=== PATIENT | female | born 1960 | race African-American/Black ===

== ENCOUNTER → 2020-07-23 08:59 | Outpatient (BNVA) | payer MEDICAID, SELFPAY | PROVIDERS: PCP Internal Medicine; Referring Provider Internal Medicine; Visit Provider Internal Medicine Endocrinology, Diabetes & Metabolism | DX: E06.3 Autoimmune thyroiditis (principal); E03.8 Other specified hypothyroidism; M85.88 Other specified disorders of bone density and structure, other site; E04.2 Nontoxic multinodular goiter; Z86.39 Personal history of other endocrine, nutritional and metabolic disease; Z79.899 Other long term (current) drug therapy | CPT/HCPCS: 99214 ==

== ENCOUNTER → 2020-07-26 09:04 | Outpatient (BNVA) | payer MEDICAID, SELFPAY | PROVIDERS: PCP Internal Medicine; Referring Provider Internal Medicine; Visit Provider Internal Medicine Cardiovascular Disease | DX: Z01.810 Encounter for preprocedural cardiovascular examination (principal); R07.9 Chest pain, unspecified; I10 Essential (primary) hypertension | CPT/HCPCS: 99204 ==

== ENCOUNTER → 2020-08-14 09:32 | Outpatient (REF) | payer MEDICAID, SELFPAY ==
--- NOTE | 2020-08-14 | NM_ITS ---
Exercise Myocardial perfusion study Indication: Chest discomfort with preoperative cardiovascular risk stratification Technique: The patient was brought in for an exercise perfusion study on 08/14/2020. Patient performed exercise as per Kailash protocol and was injected 30 mCi of sestamibi was given intravenously one target HR was achieved. Images were obtained using the SPECT gamma camera interlaced with the gating device. Images were obtained in supine position. Resting perfusion study was performed on 08/15/2020. Patient was administered 30 mCi of sestamibi intravenously at rest. Images were then obtained in supine position. Images obtained with and without CT attenuation. Total DLP 108 MGY-CM. Images were processed with the software and compared side to side in short axis, horizontal long axis and vertical long axis views. Findings: The stress perfusion study showed non attenuated images show small area of mildly reduced uptake in the apex of the LV myocardium. Remainder of the LV myocardium is normally perfused. Attenuation corrected images show normal uptake of radiotracer in all segments of LV myocardium.. The gated study shows normal LV systolic function with calculated LVEF of 72%. LV cavity is normal in size. The gated study shows normal systolic wall thickening and contraction of all segments. There is no transient ischemic dilation. Resting study shows non attenuated images show normal uptake of radiotracer in all segments of LV myocardium. Attenuation corrected images show minimally reduced uptake in the apex of the LV myocardium. Gating at rest reveals normal systolic wall motion with ejection fraction at 68%. The findings are consistent with small area of mildly reversible defect of the apex on non attenuated study. Attenuation corrected study shows normalization of uptake in the apex, question old correction.. NM/NM luis perf SPECT rest & str Impression: 1. Equivocal for small area of mild intensity apical ischemia 2. Gated LVEF is 72% with stress 3. Transient ischemic dilatation not present Stress EKG is negative for ischemia
--- NOTE | 2020-08-14 10:00 | CA_ITS ---
Acquisition Time: 2020-08-14 09:58:41 Total Exercise Time: 00:05:02 Test Indications: CP Medications: SEE CHART Protocol: RAY Max HR: 157 BPM 98% of Pred: 160 BPM Max BP: 170/084 mmHG Max Work Load: 7.0 METS Exercise nuclear using Ray protocol. Pt exercised on treadmill for total of 5 min 2 sec. Tolerated well. METS 7.0 Pt denies any anginal sx, EKG without any arrhythmias. Scooped ST seen inferiorly and anteriorly more in peak exercise and in early recovery stage. Nuclear images to follow. Normotensive response to exercise. Test reviewed with Dr. Montoya. Referred By: Wes Alberto Overread By: Nelson Murray
== END ==
LOC: HO.CARD 09:32
PROVIDERS: Visit Provider Internal Medicine Cardiovascular Disease
DX: R07.9 Chest pain, unspecified (principal)
CPT/HCPCS: 78452; 93017; A9500

== ENCOUNTER → 2020-08-29 08:07 | Outpatient (BNVA) | payer MEDICAID, SELFPAY | PROVIDERS: PCP Internal Medicine; Referring Provider Internal Medicine; Visit Provider Hospitalist | DX: J45.40 Moderate persistent asthma, uncomplicated (principal); G47.33 Obstructive sleep apnea (adult) (pediatric); R91.8 Other nonspecific abnormal finding of lung field; Z79.899 Other long term (current) drug therapy; Z23 Encounter for immunization | CPT/HCPCS: 90686; 99202 ==

== ENCOUNTER → 2020-09-04 09:43 | Outpatient (BNVA) | payer MEDICAID, SELFPAY | PROVIDERS: PCP Internal Medicine; Referring Provider Internal Medicine; Visit Provider Nurse Practitioner Family | DX: R94.39 Abnormal result of other cardiovascular function study (principal); R07.9 Chest pain, unspecified; I10 Essential (primary) hypertension; J45.40 Moderate persistent asthma, uncomplicated | CPT/HCPCS: 99212 ==

== ENCOUNTER 2020-09-04 10:51 | Outpatient (REF) | payer MEDICAID, SELFPAY ==
[2020-09-04 14:09] LABS: MANUAL DIFF FLAG NO
[2020-09-04 14:20] LABS: Basophils Percent Auto 0.7 % (0-2); Eosinophils Percent Auto 0.7 % (0-4); Hematocrit 37.7 % (37-47); Hemoglobin 12.4 g/dl (12.0-16.0); Imm Gran Abs Auto 0.01 X10*3/uL (0.00-0.03); Imm Gran Pct Auto 0.2 % (0.0-0.4); Lymphocytes Absolute Auto 1.8 X10*3/uL (1.2-4.9); Lymphocytes Percent Auto 31.7 % (20-40); Mean Corpuscular HGB Conc 32.9 g/dl (31.0-35.0); Mean Corpuscular Hemoglobin 28.2 pg (27.0-33.0); Mean Corpuscular Volume 85.7 fL (80-98); Mean Platelet Volume 9.7 fL (9.4-12.3); Monocytes Absolute Auto 0.2 X10*3/uL (0.1-1.2); Monocytes Percent Auto 4.2 % (2-11); Neutrophils Absolute Auto 3.6 X10*3/uL (2.0-8.3); Neutrophils Percent Auto 62.5 % (45-73); Platelet Count 407 X10*3/uL (160-400); Red Cell Distribution Width 12.3 % (11.0-16.0); White Blood Count 5.7 X10*3/uL (4.8-10.8)
[2020-09-04 14:32] LABS: Albumin Level 4.2 g/dL (3.5-5.0); Calcium 9.9 mg/dL (8.4-10.2)
[2020-09-04 14:37] LABS: Anion Gap 14 (12-20); Blood Urea Nitrogen 14 mg/dL (9-16); Calcium 9.7 mg/dL (8.4-10.2); Carbon Dioxide 29 mmol/L (22-29); Chloride 102 mmol/L (96-108); Estimated Glomerular Filt Rate > 60; Glucose Random 84 mg/dL (60-115); Potassium 4.1 mmol/l (3.3-5.1); Sodium 141 mmol/L (135-145)
[2020-09-04 15:01] LABS: Free T4 (Free Thyroxine) 1.17 ng/dL (0.71-1.85); Vitamin D 25-OH Total 53.3 ng/mL (>30)
[2020-09-04 15:12] LABS: Erythrocyte Sedimentation Rate 18 MM/HR (0-20)
[2020-09-05 20:37] LABS: Calcium (PTHI) 10.1 mg/dL (8.6-10.4); PTHI 28 pg/mL (14-64)
[2020-09-08 14:11] LABS: VITAMIN D (1,25 OH) D3 45 pg/mL; Vit D (1,25-Dihydroxy) Total 45 pg/mL (18-72); Vitamin D (1,25 OH) D2 <8 pg/mL
== END 2020-09-04 10:52 | disposition home or self-care (01) ==
LOC: HO.10HDL 10:51
PROVIDERS: Nurse Practitioner Family; Absent Provider Hospitalist; Visit Provider Internal Medicine Endocrinology, Diabetes & Metabolism
DX: J45.40 Moderate persistent asthma, uncomplicated (principal); R07.9 Chest pain, unspecified; E03.9 Hypothyroidism, unspecified; E04.2 Nontoxic multinodular goiter; Z86.39 Personal history of other endocrine, nutritional and metabolic disease
CPT/HCPCS: 36415; 80048; 82040; 82306; 82310; 82652; 82785; 83970; 84439; 84443; 85025; 85652; 86003

== ENCOUNTER 2020-09-17 10:23 | Outpatient (REF) | payer MEDICAID, SELFPAY ==
[2020-09-17 12:25] LABS: Creatinine, mg/dL 54.72
[2020-09-17 13:58] LABS: Creatinine, 24Hr Urine 0.8 G/Day (1.0-2.0); Total Volume 24 Hour Urine 1525 mL
[2020-09-18 17:58] LABS: Calcium, 24 Hr Urine 84 mg/24 h; Calcium/Creatinine Ratio 95 mg/g creat (30-275); Creatinine 24Hr Urine 0.88 g/24 h (0.50-2.15)
== END 2020-09-17 10:24 | disposition home or self-care (01) ==
LOC: HO.LNP 10:23
PROVIDERS: Visit Provider Internal Medicine Endocrinology, Diabetes & Metabolism
DX: Z86.39 Personal history of other endocrine, nutritional and metabolic disease (principal)
CPT/HCPCS: 82340; 82570

== ENCOUNTER 2020-09-19 08:45 | Outpatient (REF) | payer MEDICAID, SELFPAY ==
--- NOTE | 2020-09-19 08:45 | PFT_ITS ---
INDICATION: Asthma SPIROMETRY: The FEV1 to FVC 75% with an FEV1 of 1.57 L which is 67% predicted, an FVC of 2.09 L which is 70% predicted. Significant response to bronchodilators noted. Maximum voluntary ventilation only 46% predicted. LUNG VOLUMES: Total lung capacity 86% predicted with an expiratory reserve volume of only 8% predicted, likely secondary to an elevated BMI. DIFFUSION CAPACITY: DLCO 85% predicted. COMPARISONS: No definitive obstructive nor restrictive ventilatory defects identified. The patient did have a significant response to bronchodilators noted. Also has evidence of small airway disease consistent with a history of asthma. Lung volumes do demonstrate a significantly decreased expiratory reserve volume secondary to an elevated BMI and low normal total lung capacity, likely due to the elevated BMI. Diffusion capacity is within normal limits. If asthma is in the differential, a methacholine challenge may be helpful in assessing for hyper-reactive airways, otherwise clinical correlation warranted. MD CHANTE Dey/LORI / [id number]
== END 2020-09-19 08:46 | disposition home or self-care (01) ==
LOC: HO.RESP 08:45
PROVIDERS: Visit Provider Hospitalist
DX: J45.40 Moderate persistent asthma, uncomplicated (principal)
CPT/HCPCS: 94060; 94727; 94729

== ENCOUNTER → 2020-10-25 10:10 | Outpatient (BNVA) | payer MEDICAID, SELFPAY | PROVIDERS: PCP Internal Medicine; Visit Provider Nurse Practitioner Family | DX: Z76.89 Persons encountering health services in other specified circumstances (principal) ==

== ENCOUNTER → 2020-10-29 10:51 | Outpatient (BNVA) | payer MEDICAID, SELFPAY | PROVIDERS: PCP Internal Medicine; Visit Provider Hospitalist | DX: J45.40 Moderate persistent asthma, uncomplicated (principal); J31.0 Chronic rhinitis; J45.909 Unspecified asthma, uncomplicated | CPT/HCPCS: 99212 ==

== ENCOUNTER 2020-10-29 14:13 | Outpatient (REF) | payer MEDICAID, SELFPAY | END 2020-10-29 14:14 | disposition home or self-care (01) | LOC: HO.LAB 14:13 | PROVIDERS: Visit Provider Internal Medicine | DX: Z20.822 Contact with and (suspected) exposure to COVID-19 (principal) | CPT/HCPCS: 36415; C9803; U0003 ==

== ENCOUNTER → 2020-11-22 09:08 | Outpatient (BNVA) | payer MEDICAID, SELFPAY | PROVIDERS: Visit Provider Internal Medicine Endocrinology, Diabetes & Metabolism | DX: E03.8 Other specified hypothyroidism (principal); E06.3 Autoimmune thyroiditis; E04.2 Nontoxic multinodular goiter; M85.80 Other specified disorders of bone density and structure, unspecified site; Z86.39 Personal history of other endocrine, nutritional and metabolic disease | CPT/HCPCS: 99212 ==

== ENCOUNTER 2020-11-23 09:23 | Outpatient (REF) | payer MEDICAID, SELFPAY ==
[2020-11-23 10:48] LABS: Alanine Aminotransferase 18 U/L (0-31); Albumin Level 4.2 g/dL (3.5-5.0); Alkaline Phosphatase 78 U/L (39-117); Anion Gap 13 (12-20); Aspartate Amino Transferase 20 U/L (5-31); Bilirubin Total 0.3 mg/dL (0.0-1.0); Blood Urea Nitrogen 13 mg/dL (9-16); Calcium 9.1 mg/dL (8.4-10.2); Carbon Dioxide 28 mmol/L (22-29); Chloride 105 mmol/L (96-108); Estimated Glomerular Filt Rate > 60; Glucose Random 102 mg/dL (60-115); Potassium 3.9 mmol/L (3.3-5.1); Sodium 142 mmol/L (135-145)
[2020-11-23 11:09] LABS: Free T4 (Free Thyroxine) 1.34 ng/dL (0.71-1.85); Vitamin D 25-OH Total 52.3 ng/mL (>30)
== END 2020-11-23 09:24 | disposition home or self-care (01) ==
LOC: HO.10HDL 09:23
PROVIDERS: Visit Provider Internal Medicine Endocrinology, Diabetes & Metabolism
DX: E03.9 Hypothyroidism, unspecified (principal); Z86.39 Personal history of other endocrine, nutritional and metabolic disease
CPT/HCPCS: 36415; 80053; 82306; 84439; 84443

== ENCOUNTER 2020-12-20 09:53 | Outpatient (REF) | payer MEDICAID, SELFPAY ==
--- NOTE | ~2020-12-20 | MM_ITS ---
EXAMINATION: BONE DENSITOMETRY CLINICAL INDICATION: Personal history of other endocrine, nutritional and metabolic disease. COMPARISON: Baseline BD dated 11/13/2017. TECHNIQUE: Using a [employer] DXA System (software version: 13.1) manufactured by [employer], dual-energy x-ray absorptiometry was performed of the lumbar spine, left hip, and left forearm radius 33%. The images are of good technical quality. Summary results are attached. FINDINGS: AP SPINE L1-L4: Current: BMD 1.002 g/cm2, Z-score -1.3, T-score -1.5, osteopenia, 9.0% increase from baseline (<5% change is not significant). Baseline: BMD 0.919 g/cm2. LEFT FEMUR, NECK: Current: BMD 0.830 g/cm2, Z-score -0.9, T-score -1.5, osteopenia. Baseline: BMD 0.806 g/cm2. LEFT FEMUR, TOTAL: Current: BMD 0.993 g/cm2, Z-score 0.1, T-score -0.1, normal, 13.0% increase from baseline (<5% change is not significant). Baseline: BMD 0.879 g/cm2. LEFT FOREARM RADIUS 33%: BMD 0.766 g/cm2, Z-score -0.3, T-score -1.3, osteopenia, 2.0% decrease from baseline (<5% change is not significant). Baseline: BMD 0.782 g/cm2. IDENTIFIED RISK FACTORS: Hyperparathyroidism, history of fracture (adult), family history (parental hip fracture). Early menopause, secondary osteoporosis. HISTORY OF FRACTURE: Humerus. MEDICATIONS: Calcium supplements or multivitamin, vitamin D. MM/XR DEXA appendicular skeleton IMPRESSION: 1. DIAGNOSIS: Osteopenia based on the lowest T-score value of -1.5 in the femoral neck and lumbar spine applying World Health Organization criteria. 2. 10-YEAR FRACTURE RISK PREDICTION, FRAX: Major osteoporotic fracture (clinical spine, forearm, hip or shoulder) 13.9%. Hip fracture 0.6%. 3. Treatment Recommendations: NOF guidelines recommend consideration for treatment in postmenopausal women and men age 50 and older presenting with the following: -A hip or vertebral (clinical or morphometric) fracture. -T-score less than or equal to -2.5 at the femoral neck or spine after appropriate evaluation to exclude secondary causes. -Low bone mass at the hip or spine and a 10-year fracture probability by FRAX of greater than or equal to 3% for hip fracture or greater than or equal to 20% for major osteoporotic fracture based on the [place] adapted WHO algorithm. 4. Other Recommendations: All treatment decisions require clinical judgment and consideration of individual patient factors, including patient preferences, comorbidities, previous drug use, risk factors not captured in the FRAX model (e.g. frailty, falls, vitamin D deficiency, increased bone turnover, interval significant decline in bone density) and possible under or overestimation of fracture risk by FRAX. Additional medical evaluation for secondary cause of low bone mineral density may be appropriate. FUTURE SCAN RECOMMENDATION: People with diagnosed cases of osteoporosis or at high risk for fracture should have regular bone mineral density tests. For patients eligible for Medicare, routine testing is allowed once every 2 years. The testing frequency can be increased to one year for patients who have rapidly progressing disease, those who are receiving or discontinuing medical therapy to restore bone mass, or have additional risk factors.
== END 2020-12-20 09:54 | disposition home or self-care (01) ==
LOC: HO.MAMMO 09:53
PROVIDERS: Visit Provider Internal Medicine Endocrinology, Diabetes & Metabolism
DX: E21.3 Hyperparathyroidism, unspecified (principal); M81.8 Other osteoporosis without current pathological fracture
CPT/HCPCS: 77081

== ENCOUNTER 2020-12-26 16:11 | Outpatient (REF) | payer MEDICAID, SELFPAY ==
[2020-12-26 17:19] LABS: Anion Gap 12 (12-20); Blood Urea Nitrogen 18 mg/dL (9-16); Carbon Dioxide 28 mmol/L (22-29); Chloride 105 mmol/L (96-108); Estimated Glomerular Filt Rate > 60; Glucose Random 119 mg/dL (60-115); Potassium 3.8 mmol/L (3.3-5.1); Sodium 141 mmol/L (135-145)
[2020-12-27 22:02] LABS: Immunoglobulin E 80 kU/L (<OR=114)
== END 2020-12-26 16:12 | disposition home or self-care (01) ==
LOC: HO.LAB 16:11
PROVIDERS: Hospitalist; Visit Provider Nurse Practitioner Family
DX: R94.39 Abnormal result of other cardiovascular function study (principal); J45.40 Moderate persistent asthma, uncomplicated
CPT/HCPCS: 36415; 80048; 82785

== ENCOUNTER → 2021-01-21 10:35 | Outpatient (BNVA) | payer MEDICAID, SELFPAY | PROVIDERS: PCP Internal Medicine; Visit Provider Nurse Practitioner Family | DX: R94.39 Abnormal result of other cardiovascular function study (principal); R07.9 Chest pain, unspecified; I10 Essential (primary) hypertension; J45.40 Moderate persistent asthma, uncomplicated | CPT/HCPCS: 99212 ==

== ENCOUNTER → 2021-01-25 10:45 | Outpatient (BNVA) | payer MEDICAID, SELFPAY | PROVIDERS: PCP Internal Medicine; Visit Provider Hospitalist | DX: R91.8 Other nonspecific abnormal finding of lung field (principal); G47.33 Obstructive sleep apnea (adult) (pediatric); J30.9 Allergic rhinitis, unspecified; J45.40 Moderate persistent asthma, uncomplicated | CPT/HCPCS: 99212 ==

== ENCOUNTER → 2021-05-31 10:55 | Outpatient (BNVA) | payer MEDICAID, SELFPAY | PROVIDERS: PCP Internal Medicine; Visit Provider Hospitalist | DX: J45.40 Moderate persistent asthma, uncomplicated (principal); R91.8 Other nonspecific abnormal finding of lung field; G47.33 Obstructive sleep apnea (adult) (pediatric) | CPT/HCPCS: 99212 ==

== ENCOUNTER → 2021-08-29 10:26 | Outpatient (BNVA) | payer MEDICAID, SELFPAY | PROVIDERS: PCP Internal Medicine; Visit Provider Hospitalist | DX: J45.40 Moderate persistent asthma, uncomplicated (principal); J31.0 Chronic rhinitis; G47.33 Obstructive sleep apnea (adult) (pediatric); R91.8 Other nonspecific abnormal finding of lung field | CPT/HCPCS: 99212 ==

== ENCOUNTER 2021-09-19 09:33 | Outpatient (REF) | payer MEDICAID, SELFPAY ==
--- NOTE | ~2021-09-19 | US_ITS ---
EXAMINATION: US RETROPERITONEAL COMPLETE (RENAL) CLINICAL INFORMATION: Bilateral flank pain. History of nephrolithiasis. COMPARISON: Renal ultrasound 04/16/2020 and 11/18/2019. X-ray abdomen KUB 02/16/2019. CT abdomen and pelvis 06/05/2018. TECHNIQUE: Real-time imaging of the kidneys and bladder. FINDINGS: RIGHT KIDNEY: 11.2 x 5.2 x 6.1 cm (SAG x AP x TRV). The kidney is normal in size, contour, and echogenicity. There is cortical thinning or scarring in the lower pole. There is a 4 mm echogenic density in the lower pole questionable for cortical calcification versus stone. There is a 2 mm echogenic density with twinkle artifact in the upper pole suggestive of a small stone. No renal mass or hydronephrosis. LEFT KIDNEY: 11.5 x 5.8 x 6.9 cm (SAG x AP x TRV). The kidney is normal in size, contour, and echogenicity. Renal cortical thickness is normal. There is a 7 x 3 x 3 mm stone in the lower pole. There is a 2 mm stone in the upper pole. No focal parenchymal lesions or hydronephrosis. BLADDER: Well distended. Bilateral ureteral jets are demonstrated. Prevoid bladder volume is 251 mL. Postvoid bladder volume is 46.6 mL. US/US retroperitoneal comp IMPRESSION: Bilateral renal stones. Cortical thinning or scarring in the lower pole of the right kidney. Small 46 mL post void bladder residual.
== END 2021-09-19 09:34 | disposition home or self-care (01) ==
LOC: HO.US 09:33
PROVIDERS: PCP Internal Medicine; Visit Provider Internal Medicine
DX: R10.9 Unspecified abdominal pain (principal)
CPT/HCPCS: 76770

== ENCOUNTER 2021-10-03 12:23 | Emergency (ER) | payer MEDICAID, SELFPAY ==
--- NOTE | ~2021-10-03 | CT_ITS ---
EXAMINATION: CT ABDOMEN AND PELVIS WITHOUT CONTRAST CLINICAL INFORMATION: Back pain with urinary frequency. COMPARISON: CT abdomen and pelvis 06/05/2018 TECHNIQUE: Multidetector volumetric imaging was performed from the superior aspect of the liver through the pubic symphysis. Sagittal and coronal reformatted images were obtained on the technologist's workstation. This CT examination was performed using dose optimization techniques as appropriate, variously including the following: *Automated exposure control *Adjustment of mA and/or kV according to patient size (this includes techniques or standardized protocols for targeted exams where dose is matched to indication/reason for exam; i.e. extremities or head) *Use of iterative reconstruction technique DLP: 932 mGy-cm FINDINGS: LUNG BASES: There is atelectatic changes in the lingula and right lower lobe. The heart size is normal. LIVER, GALLBLADDER, AND BILIARY TREE: The liver is normal in size, shape, and attenuation. There is a 1.4 cm lesion right hepatic lobe measuring 6.7 cm. A slightly larger right hepatic lobe lesion in the posterior segment 6 measures 2.3 cm. The gallbladder is distended no radiopaque calculi. No wall thickening. No pericholecystic fluid collection. PANCREAS: Unremarkable. SPLEEN: Unremarkable. ADRENAL GLANDS: Unremarkable. KIDNEYS AND URETERS: The kidneys are normal in size, shape, and attenuation. There are punctate 1 mm radiopaque calculi in upright and lower pole left kidney. No caliectasis or hydronephrosis seen. The right kidney is unremarkable. BLADDER: Unremarkable. GASTROINTESTINAL TRACT: There is scattered stool, diverticuli and gas seen throughout the colon without any significant distention. The small bowel loops are normal caliber. Appendix is not visualized and likely surgically removed. The stomach is nondistended and appears unremarkable. ABDOMINAL WALL: There is small umbilical hernia containing fat. LYMPH NODES: Normal. VASCULAR: Unremarkable. PELVIC VISCERA: There is a left pararectal fat stranding but no focal lesion or mass seen. OSSEOUS STRUCTURES: Unremarkable. CT/CT abdomen pelvis wo con IMPRESSION: Colonic diverticulosis without diverticulitis. There is mild constipation. Punctate 1 mm radiopaque calculi upper and lower pole calyx left kidney. There is no caliectasis or hydronephrosis seen. Right kidney is unremarkable. Nonspecific fat stranding in left pararectal soft tissues. Multiple cysts in the right hepatic lobe.
[2021-10-03 12:48] VITALS: BP 144/78; PULSE 86; RESP 18; TEMP 36.8; O2SAT 98; BMI 38.9
[2021-10-03 13:11] LABS: Appearance Urine CLEAR; Color Urine YELLOW; Glucose Urine UA NEG (NEG); Leukocyte Esterase Urine TRACE (NEG); Nitrite Urine NEG (NEG); Specific Gravity - Urine 1.025 (1.005-1.025); UACC Culture Trigger YES; Urine Blood 2+ (NEG); Urine Ketones NEG (NEG); Urine Protein NEG (NEG-TRACE)
[2021-10-03 13:56] LABS: Squamous Epithelial Cell Urine TRACE /LPF
--- NOTE | 2021-10-03 14:50 | ED_ITS ---
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 No abdominal pain, vomiting, fevers, chills. History of renal colic and feel similar. Related Data Home Medications Medication Instructions Recorded Confirmed albuterol sulfate 90 mcg/actuation 2 puff INHALATION QID 07/21/20 06/03/21 aerosol inhaler (Ventolin HFA) amitriptyline 10 mg tablet 10 mg PO BEDTIME 07/21/20 06/03/21 cyclobenzaprine 10 mg tablet 10 mg PO TID PRN 07/21/20 06/03/21 folic acid 1 mg tablet 1 mg PO DAILY 07/21/20 06/03/21 hydrochlorothiazide 12.5 mg capsule 12.5 mg PO QAM 07/21/20 06/03/21 montelukast 10 mg tablet 10 mg PO BEDTIME 07/21/20 06/03/21 (Singulair) ondansetron HCl 4 mg tablet 8 mg PO Q8H PRN tab 07/21/20 06/03/21 (Zofran) sennosides 8.6 mg capsule (senna) 17.2 mg PO BEDTIME PRN cap 07/21/20 06/03/21 albuterol sulfate 2.5 mg INHALATION Q4-6H PRN 08/29/20 06/03/21 Previous Rx's Medication Instructions Recorded bisacodyl 5 mg tablet,delayed 10 mg PO ONCE 1 Days #2 tab 09/04/20 release (Dulcolax (bisacodyl)) polyethylene glycol 3350 17 238 g PO .COMPLEX 1 Days #238 g 09/04/20 gram/dose oral powder (Miralax) fluticasone fur. 200 mcg-umeclid 1 inh INHALATION DAILY #60 ea 05/31/21 62.5 mcg-vilant 25 mcg inhalat.powder (Trelegy Ellipta) cholecalciferol (vitamin D3) 50 50 mcg PO DAILY 30 Days #30 cap 06/11/21 mcg (2,000 unit) capsule fluticasone propionate 50 2 spray INTRANASAL DAILY 30 Days 08/28/21 mcg/actuation nasal #15.8 ml spray,suspension loratadine 10 mg tablet (Claritin) 10 mg PO DAILY #30 tab 08/28/21 calcium citrate 500 mg PO BID 30 Days #120 tab 08/29/21 furosemide 20 mg tablet (Lasix) 20 mg PO DAILY 3 Days #3 tab 08/29/21 levothyroxine 137 mcg tablet 137 mcg PO DAILY 90 Days #90 tab 08/29/21 cefuroxime axetil 250 mg tablet 250 mg PO BID #14 tab 10/03/21 phenazopyridine 200 mg tablet 200 mg PO TID PRN #10 tab 10/03/21 (Pyridium) Allergies Allergy/AdvReac Type Severity Reaction Status Date / Time No Known Allergies Allergy Verified 08/29/21 11:12 [No Known Allergies*] Review of Systems Review of Systems Yes all other systems are reviewed and are negative Constitutional: Reports no additional constitutional complaints, Denies body ache(s), Denies chills, Denies fever(s), Denies headache(s) and Denies weakness Eyes: Reports no additional eye complaints and Denies change in vision Reports system reviewed and no additional complaints, except as documented, Denies dizziness, Denies headache(s), Denies nasal congestion, Denies nasal discharge and Denies neck pain Cardiovascular: Reports no additional cardiovascular complaints, Denies chest pain, Denies leg edema and Denies dyspnea Respiratory: Reports no additional respiratory complaints, Denies cough and Denies dyspnea Gastrointestinal: Reports no additional gastrointestinal complaints, Denies abdominal pain, Denies diarrhea, Denies nausea and Denies vomiting Genitourinary: Reports no additional female genitourinary complaints, Denies urinary frequency, Denies difficulty voiding, Reports dysuria, Reports pelvic pain, Denies flank pain, Denies urinary incontinence, Denies urinary hesitancy and Reports urinary urgency Musculoskeletal: Reports no additional musculoskeletal complaints, Reports back pain, Denies arthralgias, Denies joint swelling, Denies neck pain, Denies numbness and Denies tingling Skin/Breast: Reports system reviewed and no additional complaints, except as docu and Denies rash Reports system reviewed and no additional complaints, except as documented, Denies Abnormal speech present, Denies dizziness, Denies headache(s), Denies numbness, Denies tingling and Denies weakness Physical Exam Vital Signs: Vital Signs: Last Vital Signs Temp 98.3 F 10/03/21 12:48 Pulse 86 10/03/21 12:48 Resp 18 10/03/21 12:48 BP 144/78 H 10/03/21 12:48 Pulse Ox 98 10/03/21 12:48 BMI result Body Mass Index 38.9 Const: General: cooperative, healthy appearing, comfortable and no acute distress Orientation/consciousness: patient oriented x3 Limitations: no limitations HENMT: Head: Yes normal to inspection Ears: hearing grossly normal bilatera lly General nose exam: Normal external nose present Face and sinus: Yes normal facial exam Mouth: Normal oral and palatal mucosa present Throat: Yes posterior oropharynx normal Eyes: General: appearance normal, both eyes and all related structures Pupils: Equal, round and reactive pupils present Neck: Neck: Yes normal visual inspection Chest: Chest palpation & inspection: normal inspection of the chest Resp: Effort & Inspection: normal respiratory effort Auscultation: clear to auscultation bilaterally Cardio: Rate: regular rate Rhythm: regular rhythm Peripheral pulses: Peripheral pulses 2+ throughout GI: Inspection: Yes normal to inspection Palpation (GI): Soft to palpation and Tenderness to palpation present (GI) (suprapubic discomfort-no rebound or guarding) Auscultation: normal bowel sounds : General: Yes no CVA tenderness Back/Spine/Pelvis: Other: Tenderness to the bilateral lumbar spine with no midline tenderness, step-offs deformities Back: no CVA tenderness Thoracic/Lumbar Spine: thoracic and lumbar spine normal to inspection Skin: General skin exam: no rashes or lesions noted Neuro: General: patient oriented x3, no focal motor deficits and normal sensation to monofilament Cranial nerves: Yes Equal, round and reactive pupils present Cognition (Neuro): normal cognition Speech: No Abnormal speech present Gait exam (Neuro): Normal gait present Motor exam (neuro): 5/5 motor strength present throughout Extrem: General: Yes normal to inspection Course Course Course Narrative: [age] year old female here with reports of low back pain with radiation to the pelvic area with some pressure and urinary frequency and urgency. Will check labs, UA, CT 1745-UA is consistent with a UTI. Labs unremarkable. CT shows 2 kidney stones within the left kidney. No evidence of obstructive kidney stones. Otherwise the skin is unremarkable. Patient is tolerating p.o.. She is resting comfortably with her eyes closed. Will discharge home with course of antibiotics. Reviewed worrisome signs and symptoms of when to return to the emergency department. Comfortable discharge home. MDM - Abdominal Pain Medical Records Attestation: I reviewed the patient's medical records. Lab Data Attestation: I reviewed the patient's lab results. Result diagrams: 10/03/21 15:31 10/03/21 15:31 Labs: Lab Results 10/03/21 10/03/21 10/03/21 Range/Units 13:00 15:31 15:31 WBC 6.6 (4.8-10.8) X10*3/uL RBC 4.28 (4.20-5.50) X10*6/uL Hgb 12.1 (12.0-16.0) g/dl Hct 36.9 L (37.0-47.0) % MCV 86.2 (80.0-98.0) fL MCH 28.3 (27.0-33.0) pg MCHC 32.8 (31.0-35.0) g/dl RDW 12.7 (11.0-16.0) % Plt Count 384 (160-400) X10*3/uL MPV 9.0 L (9.4-12.3) fL Immature Gran % (Auto) 0.3 (0.0-0.4) % Neut % (Auto) 59.4 (45-73) % Lymph % (Auto) 32.9 (20-40) % [place] % (Auto) 5.5 (2-11) % Eos % (Auto) 1.4 (0-4) % Baso % (Auto) 0.5 (0-2) % Lymph # (Auto) 2.2 (1.2-4.9) X10*3/uL [place] # (Auto) 0.4 (0.1-1.2) X10*3/uL Eos # (Auto) 0.1 (0.0-0.4) X10*3/uL Baso # (Auto) 0.0 (0.0-0.2) X10*3/uL Abs Immat Gran (auto) 0.02 (0.00-0.03) X10*3/uL Absolute Neuts (auto) 3.9 (2.0-8.3) x10*3/uL Absolute Nucleated RBC 0.000 (0.0-0.012) X10*3/uL Nucleated RBC % (auto) 0.0 (0.0-0.2) /100WBC Sodium 143 (135-145) mmol/L Potassium 4.3 (3.3-5.1) mmol/L Chloride 104 (96-108) mmol/L Carbon Dioxide 30 H (22-29) mmol/L Anion Gap 13 (12-20) BUN 13 (9-16) mg/dL Creatinine 0.77 (0.5-1.4) mg/dL Estim Creat Clear Calc 83.2 Estimated GFR > 60 Random Glucose 87 (60-115) mg/dL Calcium 10.1 D (8.4-10.2) mg/dL Total Bilirubin 0.3 (0.0-1.0) mg/dL Direct Bilirubin < 0.2 (0.0-0.5) mg/dL AST 21 (5-31) U/L ALT 21 (0-31) U/L Alkaline Phosphatase 89 (39-117) U/L Total Protein 7.1 (6.5-8.0) g/dL Albumin 4.0 (3.5-5.0) g/dL Urine Color YELLOW Urine Appearance CLEAR Urine pH 6.0 (5.0-8.0) Ur Specific [place] 1.025 (1.005-1.025) Urine Protein NEG (NEG-TRACE) MG/DL Urine Glucose (UA) NEG (NEG) MG/DL Urine Ketones NEG (NEG) MG/DL Urine Blood 2+ H (NEG) Urine Nitrite NEG (NEG) Ur Leukocyte Esterase TRACE H (NEG) Urine RBC 5-9 H (0) /HPF Urine WBC 1-4 (0-4) /HPF Ur Squamous Epith Cells TRACE /LPF Urine Bacteria NONE /LPF Imaging Data CT scan - abdomen: Attestation: I personally reviewed and interpreted this imaging study as follows: Radiologist's impression: [address] [address] [address] Scan Report Signed Patient: Diamond Grider MR#: [id number] : 1960 Acct:[id number] Age/Sex: 60 / F ADM Date: 10/03/21 Loc: HO.ED Attending Dr: Ordering Physician: Jeanna Shelby NP Date of Service: 10/03/21 Procedure(s): CT abdomen pelvis wo con Accession Number(s): [id number] cc: Jeanna Shelby NP~ EXAMINATION: CT ABDOMEN AND PELVIS WITHOUT CONTRAST? CLINICAL INFORMATION: Back pain with urinary frequency. COMPARISON: CT abdomen and pelvis 06/05/2018 TECHNIQUE: Multidetector volumetric imaging was performed from the superior aspect of the liver through the pubic symphysis. Sagittal and coronal reformatted images were obtained on the technologist's workstation.? This CT examination was performed using dose optimization techniques as appropriate, variously including the following: *Automated exposure control *Adjustment of mA and/or kV according to patient size (this includes techniques or standardized protocols for targeted exams where dose is matched to indication/reason for exam; i.e. extremities or head) *Use of iterative reconstruction technique DLP: 932 mGy-cm FINDINGS: LUNG BASES: There is atelectatic changes in the lingula and right lower lobe. The heart size is normal.? LIVER, GALLBLADDER, AND BILIARY TREE: The liver is normal in size, shape, and attenuation. There is a 1.4 cm lesion right hepatic lobe measuring 6.7 cm. A slightly larger right hepatic lobe lesion in the posterior segment 6 measures 2.3 cm. The gallbladder is distended no radiopaque calculi. No wall thickening. No pericholecystic fluid collection.? PANCREAS: Unremarkable.? SPLEEN: Unremarkable.? ADRENAL GLANDS: Unremarkable.? KIDNEYS AND URETERS: The kidneys are normal in size, shape, and attenuation. There are punctate 1 mm radiopaque calculi in upright and lower pole left kidney. No caliectasis or hydronephrosis seen. The right kidney is unremarkable.? BLADDER: Unremarkable.? GASTROINTESTINAL TRACT: There is scattered stool, diverticuli and gas seen throughout the colon without any significant distention. The small bowel loops are normal caliber. Appendix is not visualized and likely surgically removed. The stomach is nondistended and appears unremarkable. ABDOMINAL WALL: There is small umbilical hernia containing fat.? LYMPH NODES: Normal. VASCULAR: Unremarkable. PELVIC VISCERA: There is a left pararectal fat stranding but no focal lesion or mass seen.? OSSEOUS STRUCTURES: Unremarkable.? CT/CT abdomen pelvis wo con IMPRESSION: Colonic diverticulosis without diverticulitis. There is mild constipation. ? Punctate 1 mm radiopaque calculi upper and lower pole calyx left kidney. There is no caliectasis or hydronephrosis seen. Right kidney is unremarkable. ? Nonspecific fat stranding in left pararectal soft tissues. ? Multiple cysts in the right hepatic lobe. Discharge Plan Discharge Clinical Impression: UTI (urinary tract infection) Patient Disposition: Home, Self-Care Instructions: Urinary Tract Infection in Women (ED) Additional Instructions: Increase fluids, rest Your CT scan shows 2 kidney stones in the left kidney Prescriptions: New cefuroxime axetil 250 mg tablet 250 mg PO BID Qty: 14 RF: 0 phenazopyridine [Pyridium] 200 mg tablet 200 mg PO TID PRN (Reason: pain) Qty: 10 RF: 0 No Action polyethylene glycol 3350 [Miralax] 17 gram/dose powder 238 g PO .COMPLEX 1 Days Qty: 238 RF: 0 bisacodyl [Dulcolax (bisacodyl)] 5 mg tablet,delayed release (DR/EC) 10 mg PO ONCE 1 Days Qty: 2 RF: 0 cholecalciferol (vitamin D3) 50 mcg (2,000 unit) capsule 50 mcg PO DAILY 30 Days Qty: 30 RF: 5 loratadine [Claritin] 10 mg tablet 10 mg PO DAILY Qty: 30 RF: 11 fluticasone propionate 50 mcg/actuation spray,suspension 2 spray intranasal DAILY 30 Days Qty: 15.8 RF: 11 levothyroxine 137 mcg tablet 137 mcg PO DAILY 90 Days Qty: 90 RF: 5 calcium citrate 250 mg calcium tablet 500 mg PO BID 30 Days Qty: 120 RF: 6 ondansetron HCl [Zofran] 4 mg tablet 8 mg PO Q8H PRN (Reason: Nausea) RF: 0 senna 8.6 mg capsule 17.2 mg PO BEDTIME PRN (Reason: constipation) RF: 0 albuterol sulfate [Ventolin HFA] 90 mcg/actuation HFA aerosol inhaler 2 puff inhalation QID RF: 0 amitriptyline 10 mg tablet 10 mg PO BEDTIME RF: 0 cyclobenzaprine 10 mg tablet 10 mg PO TID PRN (Reason: muscle spasm) RF: 0 hydrochlorothiazide 12.5 mg capsule 12.5 mg PO QAM RF: 0 montelukast [Singulair] 10 mg tablet 10 mg PO BEDTIME RF: 0 folic acid 1 mg tablet 1 mg PO DAILY RF: 0 Trelegy Ellipta 200-62.5-25 mcg blister with device 1 inh inhalation DAILY Qty: 60 RF: 11 albuterol sulfate 2.5 mg /3 mL (0.083 %) solution for nebulization 2.5 mg inhalation Q4-6H PRN (Reason: Shortness Of Breath Or Wheezing) RF: 0 furosemide [Lasix] 20 mg tablet 20 mg PO DAILY 3 Days Qty: 3 RF: 0 Referrals: [place] [Primary Care Provider] - 2 days Interventions: ED Discharge Assessment Last Done: 10/03/21 16:29 Discharge Date/Time: 10/03/21 16:29 Print Language: [place] [facility] Past Medical History Attestation statement: The following information was validated with the patient. Source: old records reviewed and nursing notes reviewed Medical History Asthma Chronic allergic rhinitis Fernando's disease History of primary hyperparathyroidism Hx of renal calculi Hypertension Hypothyroidism Limb swelling Non-toxic multinodular goiter PAOLA (obstructive sleep apnea) Osteopenia Pulmonary nodules Sleep apnea Surgical History H/O partial thyroidectomy History of surgery on arm Hx of cystoscopy Hx of lithotripsy Hx of parathyroidectomy Hx of tubal ligation Status post fine needle aspiration Family History Family History Maternal Grandmother Diabetes Social History Social History Alcohol intake: never Patient Tobacco Use Status: Never used Tobacco Advance Directives: No Advance Directives Information Provided: No Patient : No
--- NOTE | 2021-10-03 15:33 | PC.NURSE ---
blood labs drawn and sent, ct scan awaiting result, ambulating to bathroom w steady gait.
[2021-10-03 15:34] LABS: MANUAL DIFF FLAG NO
[2021-10-03 15:37] LABS: Basophils Percent Auto 0.5 % (0-2); Eosinophils Absolute Auto 0.1 X10*3/uL (0.0-0.4); Eosinophils Percent Auto 1.4 % (0-4); Hematocrit 36.9 % (37.0-47.0); Hemoglobin 12.1 g/dl (12.0-16.0); Imm Gran Abs Auto 0.02 X10*3/uL (0.00-0.03); Imm Gran Pct Auto 0.3 % (0.0-0.4); Lymphocytes Absolute Auto 2.2 X10*3/uL (1.2-4.9); Lymphocytes Percent Auto 32.9 % (20-40); Mean Corpuscular HGB Conc 32.8 g/dl (31.0-35.0); Mean Corpuscular Hemoglobin 28.3 pg (27.0-33.0); Mean Corpuscular Volume 86.2 fL (80.0-98.0); Monocytes Absolute Auto 0.4 X10*3/uL (0.1-1.2); Monocytes Percent Auto 5.5 % (2-11); Neutrophils Absolute Auto 3.9 x10*3/uL (2.0-8.3); Neutrophils Percent Auto 59.4 % (45-73); Platelet Count 384 X10*3/uL (160-400); Red Blood Count 4.28 X10*6/uL (4.20-5.50); Red Cell Distribution Width 12.7 % (11.0-16.0); White Blood Count 6.6 X10*3/uL (4.8-10.8)
[2021-10-03 15:55] LABS: Alanine Aminotransferase 21 U/L (0-31); Alkaline Phosphatase 89 U/L (39-117); Anion Gap 13 (12-20); Aspartate Amino Transferase 21 U/L (5-31); Bilirubin Direct < 0.2 mg/dL (0.0-0.5); Bilirubin Total 0.3 mg/dL (0.0-1.0); Blood Urea Nitrogen 13 mg/dL (9-16); Calcium 10.1 mg/dL (8.4-10.2); Carbon Dioxide 30 mmol/L (22-29); Chloride 104 mmol/L (96-108); Creatinine Clr Calc Pharmacy 83.2; Estimated Glomerular Filt Rate > 60; Glucose Random 87 mg/dL (60-115); Potassium 4.3 mmol/L (3.3-5.1); Sodium 143 mmol/L (135-145); Total Protein 7.1 g/dL (6.5-8.0)
== END 2021-10-03 16:29 | disposition home or self-care (01) ==
PROVIDERS: Nurse Practitioner Family; Emergency Provider Emergency Medicine
DX: N39.0 Urinary tract infection, site not specified (principal); N20.0 Calculus of kidney
CPT/HCPCS: 36415; 74176; 80048; 80076; 81001; 85025; 87086; 99284

== ENCOUNTER → 2021-12-06 13:01 | Outpatient (BNVA) | payer MEDICAID, SELFPAY | DX: N20.0 Calculus of kidney (principal) | CPT/HCPCS: 99202 ==

== ENCOUNTER → 2021-12-19 12:24 | Outpatient (BNVA) | payer MEDICAID, SELFPAY | PROVIDERS: PCP Internal Medicine; Visit Provider Internal Medicine Endocrinology, Diabetes & Metabolism | DX: E03.9 Hypothyroidism, unspecified (principal); M85.80 Other specified disorders of bone density and structure, unspecified site; Z86.39 Personal history of other endocrine, nutritional and metabolic disease | CPT/HCPCS: 99212 ==

== ENCOUNTER 2021-12-23 13:47 | Outpatient (REF) | payer MEDICAID, SELFPAY ==
--- NOTE | 2021-12-23 16:00 | MHC.AU.ANR ---
Adult Audiological Evaluation Date of Visit: 12/23/21 Audit Mgr Used: [place] Citizen- In Person Reason for Appointment: Audiological evaluation due to concern for tinnitus and decreased hearing. Patient reports that she started noticing tinnitus in the right ear about 2 months ago. She notes that it is intermittent and will last for several days, go away, and then come back. She also notes that her daughters feel she doesn't hear well. Does patient feel they have a hearing loss?: Unsure Has hearing been tested previously?: No Ear History: Family History of Hearing Loss?: Yes: Mother Bothersome Tinnitus/Ringing/Noises in Ears: Right Ear Medical History: Medical History: Dizziness or Unsteadiness, Thyroid Disease Medical History (Other): Asthma, osteoporosis, seasonal allergies, COPD Medication List: Levothyroxine sodium, Senna, folic acid, Ibuprofen, Amitripyline HCl, Advair diskus, Hydrochlorothiazide, ipratropium/albuterol sulfate, Singulair, Proair HFA, tamsulosin HCl, omeprazole, Shingrix, triamcinolone acetonide Otoscopy: Right Ear: Unremarkable Left Ear: Unremarkable Tympanometry: Tympanometry performed due to: To assess integrity of the middle ear system Right Ear: Normal Middle Ear System (Type A) Left Ear: Normal Middle Ear System (Type A) Hearing Evaluation: Transducer(s) Used: Insert Earphones, Bone Conduction Method: Conventional Audiometry Stimuli Used: Pure Tones Right Ear: Description of Hearing: Mild sloping to moderate sensorineural hearing loss from 250-8000 Hz. Hearing in the right ear is 10-20 dBHL worse than the left ear across the frequency range. Left Ear: Description of Hearing: Mild sensorineural hearing loss from 250-8000 Hz. Speech Recognition Threshold (SRT): Method Used: Recorded Lists Stimuli Used: [place] Citizen Trisyllable Words Right Ear: 50 dBHL Left Ear: 50 dBHL Word Discrimination: Method: Recorded Lists Word Lists Used: Lista Bisil?bica ([place] Citizen) Right Ear: 80% at 80 dBHL Left Ear: 64% at 80 dBHL *Note: patient appeared to become fatigued and was not consistently responding during speech testing. Recommendations: Audiological re-evaluation in one year. Referral to Ear, Nose, and Throat is recommended due to asymmetric hearing thresholds. Diagnosis: Primary Diagnosis: H90.3 Bilateral Sensorineural Hearing Loss Secondary Diagnosis: H93.11 Tinnitus, Right Ear Services Performed: Services Performed: Comprehensive Audiological Evaluation (CPT 23917) Tympanometry (CPT 20681) Signature: Provider: Charles Serrato, CCC-A
== END 2021-12-23 13:48 | disposition home or self-care (01) ==
LOC: HO.SH 13:47
PROVIDERS: Visit Provider Internal Medicine
DX: H91.93 Unspecified hearing loss, bilateral (principal)
CPT/HCPCS: 92557; 92567

== ENCOUNTER 2021-12-27 13:16 | Outpatient (REF) | payer MEDICAID, SELFPAY ==
--- NOTE | ~2021-12-27 | MM_ITS ---
EXAMINATION: MM SCREENING DIGITAL BREAST TOMOSYNTHESIS, BILATERAL CLINICAL INFORMATION: Screening. Asymptomatic. The lifetime risk of breast cancer based on the Tyrer-Cuzick Model is 4%. COMPARISON: Mammography: 05/11/2020, 11/22/2018 (new baseline). TECHNIQUE: Digital breast tomosynthesis is performed in both the craniocaudal and mediolateral oblique views along with computer-aided detection (CAD). Synthesized 2D images are generated from the tomosynthesis. Additional right MLO view is provided. FINDINGS: There are scattered areas of fibroglandular density (ACR BI-RADS breast composition Category b). There are no significant masses, abnormal calcifications, or other abnormalities. Parenchymal pattern is similar to prior studies. No developing density or interval architectural abnormality. No significant changes. MM/MM tomosynthesis screening BI IMPRESSION: No mammographic evidence of malignancy. ASSESSMENT: BI-RADS 1: Negative RECOMMENDATION: Routine annual mammography screening. This patient's information was entered into a reminder system with a target due date for their next mammogram.
== END 2021-12-27 13:17 | disposition home or self-care (01) ==
LOC: HO.MAMMO 13:16
PROVIDERS: PCP Internal Medicine; Visit Provider Internal Medicine
DX: Z12.31 Encounter for screening mammogram for malignant neoplasm of breast (principal)
CPT/HCPCS: 77063; 77067

== ENCOUNTER → 2022-02-27 10:48 | Outpatient (BNVA) | payer MEDICAID, SELFPAY | PROVIDERS: PCP Internal Medicine; Visit Provider Hospitalist | DX: J45.40 Moderate persistent asthma, uncomplicated (principal); J31.0 Chronic rhinitis; G47.33 Obstructive sleep apnea (adult) (pediatric); R91.8 Other nonspecific abnormal finding of lung field; M79.89 Other specified soft tissue disorders | CPT/HCPCS: 99212 ==

== ENCOUNTER → 2022-03-11 09:09 | Outpatient (BNVA) | payer MEDICAID, SELFPAY | PROVIDERS: PCP Internal Medicine; Referring Provider Internal Medicine; Visit Provider Nurse Practitioner Family | DX: Z12.11 Encounter for screening for malignant neoplasm of colon (principal); K21.9 Gastro-esophageal reflux disease without esophagitis | CPT/HCPCS: 99202 ==

== ENCOUNTER → 2022-06-19 09:26 | Outpatient (REF) | payer MEDICAID, SELFPAY | LOC: HO.SL 09:26 | PROVIDERS: Visit Provider Hospitalist | DX: G47.33 Obstructive sleep apnea (adult) (pediatric) (principal) | CPT/HCPCS: 95806 ==

== ENCOUNTER 2022-07-14 10:46 | Outpatient (REF) | payer MEDICAID, SELFPAY ==
[2022-07-14 10:57] LABS: MANUAL DIFF FLAG NO
[2022-07-14 12:19] LABS: Basophils Absolute Auto 0.1 X10*3/uL (0.0-0.2); Basophils Percent Auto 0.9 % (0-2); Eosinophils Absolute Auto 0.1 X10*3/uL (0.0-0.4); Eosinophils Percent Auto 0.8 % (0-4); Hematocrit 37.6 % (37.0-47.0); Hemoglobin 12.6 g/dl (12.0-16.0); Imm Gran Abs Auto 0.02 X10*3/uL (0.00-0.03); Imm Gran Pct Auto 0.3 % (0.0-0.4); Lymphocytes Percent Auto 29.7 % (20-40); Mean Corpuscular HGB Conc 33.5 g/dl (31.0-35.0); Mean Corpuscular Hemoglobin 29.3 pg (27.0-33.0); Mean Corpuscular Volume 87.4 fL (80.0-98.0); Mean Platelet Volume 10.4 fL (9.4-12.3); Monocytes Absolute Auto 0.3 X10*3/uL (0.1-1.2); Neutrophils Absolute Auto 4.2 x10*3/uL (2.0-8.3); Neutrophils Percent Auto 63.3 % (45-73); Platelet Count 442 X10*3/uL (160-400); Red Cell Distribution Width 13.3 % (11.0-16.0); White Blood Count 6.6 X10*3/uL (4.8-10.8)
[2022-07-14 13:06] LABS: Erythrocyte Sedimentation Rate 24 MM/HR (0-20)
== END 2022-07-14 10:47 | disposition home or self-care (01) ==
LOC: HO.LAB 10:46
PROVIDERS: Visit Provider Hospitalist
DX: J45.40 Moderate persistent asthma, uncomplicated (principal); R91.8 Other nonspecific abnormal finding of lung field; G47.33 Obstructive sleep apnea (adult) (pediatric); J30.9 Allergic rhinitis, unspecified
CPT/HCPCS: 36415; 82785; 85025; 85652; 86003; 99212

== ENCOUNTER 2022-08-05 09:33 | Outpatient (REF) | payer MEDICAID, SELFPAY ==
--- NOTE | ~2022-08-05 | US_ITS ---
EXAMINATION: US RETROPERITONEAL LIMITED (RENAL ONLY) CLINICAL INFORMATION: Calculus of kidney. COMPARISON: CT abdomen and pelvis 10/03/2021. Renal ultrasound 09/19/2021 and 04/16/2020. X-ray abdomen KUB 02/16/2019. TECHNIQUE: Real-time imaging of the kidneys. FINDINGS: RIGHT KIDNEY: 11.4 x 6.5 x 5.8 cm (SAG x AP x TRV). The kidney is normal in size, contour, and echogenicity. Renal cortical thickness is normal. No calculi or focal parenchymal lesions. No hydronephrosis. A lobulated lower pole cortex is noted. LEFT KIDNEY: 11.7 x 6.7 x 5.7 cm (SAG x AP x TRV). The kidney is normal in size, contour, and echogenicity. Renal cortical thickness is normal. No hydronephrosis. There is an echogenic stone in lower pole measuring 0.7 x 0.4 x 0.3 cm. There is no caliectasis. There is anechoic cyst in midpole lateral cortex measuring 0.9 x 0.8 x 1.1 cm. US/US renal BI IMPRESSION: Nonobstructive echogenic stone lower pole left kidney without caliectasis or hydronephrosis. Small cyst midpole laterally left kidney. Slightly lobulated appearing lower pole right kidney but no focal lesion seen in the right kidney.
== END 2022-08-05 09:34 | disposition home or self-care (01) ==
LOC: HO.US 09:33
PROVIDERS: Visit Provider Urology
DX: N20.0 Calculus of kidney (principal)
CPT/HCPCS: 76775

== ENCOUNTER 2022-09-26 09:16 | Outpatient (REF) | payer MEDICAID, SELFPAY ==
[2022-09-26 09:59] LABS: Influenza A PCR POSITIVE (Negative); Influenza B PCR NEGATIVE (Negative); Resp Syncy Virus RNA Qual PCR NEGATIVE (Negative); SARS COV2 PCR INHOUSE NEGATIVE (Negative)
== END 2022-09-26 09:17 | disposition home or self-care (01) ==
LOC: HO.LNP 09:16
PROVIDERS: Visit Provider Hospitalist
DX: J45.909 Unspecified asthma, uncomplicated (principal); Z20.822 Contact with and (suspected) exposure to COVID-19
CPT/HCPCS: 0241U

== ENCOUNTER 2022-09-26 09:20 | Emergency (ER) | payer MEDICAID, SELFPAY ==
[2022-09-26 09:33] VITALS: BP 156/96; PULSE 94; RESP 18; TEMP 37.2; O2SAT 94; BMI 41.5
[2022-09-26 10:06] LABS: COVID-19 Test Negative (Negative); IDNOW Serial# 55D5AD1C
[2022-09-26 10:07] LABS: IDNOW Serial# 9DB6401D; Influenza A Positive (Negative); Influenza B2 Negative (Negative)
--- NOTE | 2022-09-26 10:16 | ED_ITS ---
HPI - URI/Sore Throat General Chief Complaint: Upper Respiratory Symptoms Stated Complaint: Asthma Head Pain Weakness Time Seen by Provider: 09/26/22 10:01 Source: patient Mode of arrival: ambulatory Limitations: language barrier ( Iranian-speaking) History of Present Illness HPI Narrative: 61-year-old female with a past medical surgical history of Fernando's disease, hypothyroidism, hyperparathyroidism, hypertension, asthma, strep this sleep apnea, pulmonary nodules, renal calculi who is Iranian-speaking presenting to the ER with URI complaints was started yesterday. She which include intermittent headaches, fatigue, malaise, chills, sore throat, ear pain, nasal congestion/ rhinorrhea, cough with chest congestion/burning sensation and body aches. She reports she goes to a day program and she is unsure if she has any sick contacts there. Although her family which include her daughter and her grandson were tested positive for the flu a few days ago and she was around him for his birthday. Otherwise she denies any measured fevers, dizziness, neck pain / stiffness, trouble swallowing or breathing, chest pain or shortness of breath, paresthesias, dyspnea on exertion, orthopnea, palpitations, n ausea/vomiting / diarrhea or constipation, black or bloody stools, abdominal pain, flank pain, dysuria, hematuria, abnormal vaginal discharge, lower extremity more calf tenderness, rashes or any other symptoms complaints or concerns at this time. MD elicited complaint: cough, sore throat, rhinorrhea and nasal congestion Onset (ago): day(s) ( Since yesterday) Consistency: constant and progressively worsening Severity: mild Description of mucous: clear, watery and yellow Able to tolerate fluids by mouth: Yes Exacerbating factors: swallowing Relieving factors: nothing Context: sick contacts and other(s) with similar symptoms Associated symptoms: chills, myalgias, headache, rhinorrhea, nasal congestion, sore throat and cough Treatments prior to arrival: none Related Data Home Medications Medication Instructions Recorded Confirmed albuterol sulfate 90 mcg/actuation 2 puff inhalation QID 07/21/20 12/19/21 aerosol inhaler (Ventolin HFA) amitriptyline 10 mg tablet 10 mg PO BEDTIME 07/21/20 12/19/21 cyclobenzaprine 10 mg tablet 10 mg PO TID PRN muscle spasm 07/21/20 12/19/21 folic acid 1 mg tablet 1 mg PO DAILY 07/21/20 06/03/21 ondansetron HCl 4 mg tablet 8 mg PO Q8H PRN Nausea 07/21/20 12/19/21 (Zofran) sennosides 8.6 mg capsule (senna) 17.2 mg PO BEDTIME PRN constipation 07/21/20 12/19/21 albuterol sulfate 2.5 mg/3 mL 2.5 mg inhalation Q4-6H PRN 08/29/20 12/19/21 (0.083 %) solution for nebulization Shortness Of Breath Or Wheezing ipratropium 0.5 mg-albuterol 3 mg ml inhalation QID 12/06/21 12/19/21 (2.5 mg base)/3 mL nebulization soln tamsulosin 0.4 mg capsule 0.4 mg PO DAILY 12/06/21 12/19/21 triamcinolone acetonide 0.1 % appl topical BID 12/06/21 12/19/21 topical cream clotrimazole 1 % topical cream appl topical 03/11/22 hydrochlorothiazide 25 mg tablet 25 mg PO DAILY 03/11/22 pantoprazole 20 mg tablet,delayed 20 mg PO BID 03/11/22 release montelukast 10 mg tablet 10 mg PO QPM 07/14/22 Previous Rx's Medication Instructions Recorded levothyroxine 137 mcg tablet 137 mcg PO DAILY 90 days #90 tabs 08/29/21 pyridoxine (vitamin B6) 100 mg 100 mg PO DAILY 90 days #90 tabs 12/06/21 tablet fluticasone fur. 200 mcg-umeclid 1 ea inhalation DAILY #60 ea 01/30/22 62.5 mcg-vilant 25 mcg inhalat.powder (Trelegy Ellipta) compress.stocking,knee,reg,med #2 ea 02/27/22 furosemide 20 mg tablet (Lasix) 20 mg PO DAILY 7 days #7 tabs 02/27/22 bisacodyl 5 mg tablet,delayed 10 mg PO ONCE 1 day #2 tabs 03/11/22 release (Dulcolax (bisacodyl)) polyethylene glycol 3350 17 238 g PO ONCE #238 grams 03/11/22 gram/dose oral powder (Miralax) calcium citrate 500 mg PO BID #120 tabs 04/17/22 bisacodyl 5 mg tablet,delayed 10 mg PO ONCE 1 day #2 tabs 07/16/22 release (Dulcolax (bisacodyl)) polyethylene glycol 3350 17 238 g PO ONCE 1 day #238 grams 07/16/22 gram/dose oral powder (Miralax) fluticasone propionate 50 2 spray intranasal DAILY #16 grams 08/25/22 mcg/actuation nasal spray,suspension loratadine 10 mg tablet 10 mg PO DAILY #30 tabs 08/25/22 cholecalciferol (vitamin D3) 50 50 mcg PO DAILY 30 days #30 caps 08/26/22 mcg (2,000 unit) capsule ibuprofen 800 mg tablet 800 mg PO Q8H PRN pain #14 tabs 09/26/22 oseltamivir 75 mg capsule (Tamiflu) 75 mg PO BID 5 days #10 caps 09/26/22 Allergies Allergy/AdvReac Type Severity Reaction Status Date / Time No Known Allergies Allergy Verified 09/26/22 09:36 [No Known Allergies*] Review of Systems Review of Systems: Constitutional : + fatigue/ malaise/chills, No Weight loss, No Fever, No Chills, No Night Sweats, No Fatigue, No Malaise ENT/Mouth : No Hearing loss, No Ear Pain, + Nasal Congestion, No Sinus Pain, No Hoarseness, + sore throat, + Rhinorrhea, No Swallowing Difficulty Eyes: No Eye Pain, No Swelling, No Redness, No Foreign Body, No Discharge, No Vision Changes Cardiovascular : No Chest Pain, No SOB, No Dyspnea on Exertion, No Orthopnea, No Edema, No Palpitations Respiratory : + Cough, No Sputum, No Wheezing, No Smoke Exposure, No Dyspnea Gastrointestinal : No Nausea, No Vomiting, No Diarrhea, No Constipation, No abdominal Pain, No Hematochezia, No Melena Genitourinary : no irregular bleeding, No Dysuria, No Urinary Frequency, No Hematuria, No Urinary Incontinence, No Urgency, No Flank Pain, No Urinary Flow Changes, No Hesitancy Musculoskeletal : No joint pain, + Myalgias, No Joint Swelling Skin : No Skin Lesions, No rash Neuro : No Weakness, No Numbness, No Paresthesias, No Loss of Consciousness, No Dizziness, No Headache Psych : No Anxiety/Panic, No Depression, No SI/HI/AH/VH, No Social Issues, Heme/Lymph: No Bruising, No Bleeding,No Lymphadenopathy Endocrine : No Polyuria, No Polydipsia, No Temperature Intolerance Yes all other systems are reviewed and are negative [facility] Past Medical History Attestation statement: The following information was validated with the patient. Source: old records reviewed and nursing notes reviewed Medical History Asthma Asthma Asthma Chronic allergic rhinitis Fernando's disease History of primary hyperparathyroidism Hx of renal calculi Hypertension Hypothyroidism Limb swelling Non-toxic multinodular goiter PAOLA (obstructive sleep apnea) Osteopenia Pulmonary nodules Renal calculi Sleep apnea Surgical History H/O partial thyroidectomy History of surgery on arm Hx of cystoscopy Hx of lithotripsy Hx of parathyroidectomy Hx of tubal ligation Status post fine needle aspiration Family History Family History Maternal Grandmother Diabetes Father No problems noted. Mother Hypertension Asthma Social History Social History Alcohol intake: never Patient Tobacco Use Status: Never used Tobacco Advance Directives: No Advance Directives Information Provided: Yes Physical Exam Vital Signs: Vital Signs: Last Vital Signs Temp 98.9 F 09/26/22 09:33 Pulse 94 09/26/22 09:33 Resp 18 09/26/22 09:33 BP 156/96 H 09/26/22 09:33 Pulse Ox 94 09/26/22 09:33 BMI result Body Mass Index 41.5 Vital signs reviewed. Blood pressure normal. Pulse normal. Respiration normal. Oxygen normal. Temperature normal. Appearance: Alert. Oriented X3. No acute distress. Head: Normal external exam. Normocephalic. Atraumatic. Eyes: PERRLA. EOMI. Conjunctiva and sclera normal. Eyelids normal. ENT: EAC normal. TM's Normal. Pharynx normal. Uvula midline. Moist mucous membranes. No lesions/ulcerations or masses noted on the tongue. Normal voice. No trismus noted. No drooling noted. No muffled voice noted. Neck: Normal inspection. Neck supple. FROM. No adenopathy. Thyroid Normal. No meningeal signs. CVS: Normal heart rate and rhythm. Heart sound normal. Pulses normal throughout. No murmurs/rales/gallops. Respiratory: No respiratory distress. Painless inspiration. Breath sounds normal. No wheezes/rales/rhonchi noted. Chest nontender. No accessory muscle usage noted or decreased air movement noted. Abdomen: Soft and nontender. Back: Full range of motion noted. Nontender. Skin: Skin warm and dry. Normal skin color. Normal skin turgor. No rashes/lesions/lacerations noted. Extremities: Extremities exhibit normal range of motion and nontender. Neuro: Oriented X 3. No motor deficit. No sensory deficit. Reflexes normal. Normal steady gait. No focal neuro deficits noted. CN's II-XII intact bilaterally? Vascular: + radial pulses. Normal cap refill. No cyanosis noted to upper extremity nails Course Course Course Narrative: 61-year-old female who is presenting with flu-like symptoms. She did test positive for the flu. On exam she is alert and oriented. Not in any acute distress. Lungs clear to auscultation. Posterior pharynx within normal limits. No exudate. No trismus/ drooling / stridor. CV RRR. Therefore at this time will DC home with Tamiflu and instructions to self isolate and to return if any new or worsening symptoms. Patient understands agrees with this plan. Medical Decision Making Medical Decision Making Lab Attestation: I reviewed the patient's lab results. Discharge Plan Discharge Clinical Impression: Influenza A Patient Disposition: Home, Self-Care Instructions: Influenza (ED), Flu Shot (Vaccine) for Adults (ED), Droplet Precautions (ED) Prescriptions: New oseltamivir [Tamiflu] 75 mg capsule 75 mg PO BID 5 Days Qty: 10 0RF ibuprofen 800 mg tablet 800 mg PO Q8H PRN (Reason: pain) Qty: 14 0RF No Action levothyroxine 137 mcg tablet 137 mcg PO DAILY 90 Days Qty: 90 5RF Trelegy Ellipta 200-62.5-25 mcg blister with device 1 ea inhalation DAILY Qty: 60 11RF calcium citrate 250 mg calcium tablet 500 mg PO BID Qty: 120 6RF bisacodyl [Dulcolax (bisacodyl)] 5 mg tablet,delayed release (DR/EC) 10 mg PO ONCE 1 Days Qty: 2 0RF Rx Instructions: take orally as directed prior to colonoscopy polyethylene glycol 3350 [Miralax] 17 gram/dose powder 238 g PO ONCE 1 Days Qty: 238 0RF Rx Instructions: take orally as directed prior to colonoscopy fluticasone propionate 50 mcg/actuation spray,suspension 2 spray intranasal DAILY Qty: 16 11RF loratadine 10 mg tablet 10 mg PO DAILY Qty: 30 11RF cholecalciferol (vitamin D3) 50 mcg (2,000 unit) capsule 50 mcg PO DAILY 30 Days Qty: 30 5RF ondansetron HCl [Zofran] 4 mg tablet 8 mg PO Q8H PRN (Reason: Nausea) senna 8.6 mg capsule 17.2 mg PO BEDTIME PRN (Reason: constipation) albuterol sulfate [Ventolin HFA] 90 mcg/actuation HFA aerosol inhaler 2 puff inhalation QID amitriptyline 10 mg tablet 10 mg PO BEDTIME cyclobenzaprine 10 mg tablet 10 mg PO TID PRN (Reason: muscle spasm) folic acid 1 mg tablet 1 mg PO DAILY albuterol sulfate 2.5 mg /3 mL (0.083 %) solution for nebulization 2.5 mg inhalation Q4-6H PRN (Reason: Shortness Of Breath Or Wheezing) montelukast 10 mg tablet 10 mg PO QPM (DME) compress.stocking,knee,reg,med Misc See Rx Instructions .Route Qty: 2 0RF Rx Instructions: 15-20 cm furosemide [Lasix] 20 mg tablet 20 mg PO DAILY 7 Days Qty: 7 0RF tamsulosin 0.4 mg capsule 0.4 mg PO DAILY triamcinolone acetonide 0.1 % cream topical BID ipratropium-albuterol 0.5 mg-3 mg(2.5 mg base)/3 mL solution for nebulization inhalation QID pyridoxine (vitamin B6) 100 mg tablet 100 mg PO DAILY 90 Days Qty: 90 1RF clotrimazole 1 % cream topical hydrochlorothiazide 25 mg tablet 25 mg PO DAILY pantoprazole 20 mg tablet,delayed release (DR/EC) 20 mg PO BID bisacodyl [Dulcolax (bisacodyl)] 5 mg tablet,delayed release (DR/EC) 10 mg PO ONCE 1 Days Qty: 2 0RF Rx Instructions: take 2 tabs at noon the day before your colonoscopy polyethylene glycol 3350 [Miralax] 17 gram/dose powder 238 g PO ONCE Qty: 238 0RF Rx Instructions: As directed by gastroenterology department at [facility] Referrals: Fay Weinstein MD [Primary Care Provider] - 5 days Stand Alone Forms: Work/School Release Print Language: Iranian
== END 2022-09-26 10:32 | disposition home or self-care (01) ==
PROVIDERS: Emergency Provider Emergency Medicine Emergency Medical Services; PCP Internal Medicine
DX: J10.1 Influenza due to other identified influenza virus with other respiratory manifestations (principal); R05.9 Cough, unspecified; R51.9 Headache, unspecified; M79.10 Myalgia, unspecified site; Z79.899 Other long term (current) drug therapy
CPT/HCPCS: 87502; 87635; 99212; 99283

== ENCOUNTER 2022-10-21 10:07 | Outpatient (REF) | payer MEDICAID, SELFPAY ==
[2022-10-21 13:48] LABS: Free T4 (Free Thyroxine) < 0.42 ng/dL (0.71-1.85); Thyroid Stimulating Hormone 75.69 uIU/mL (0.32-4.0)
== END 2022-10-21 10:08 | disposition home or self-care (01) ==
LOC: HO.LAB 10:07
PROVIDERS: Visit Provider Internal Medicine Endocrinology, Diabetes & Metabolism
DX: E03.9 Hypothyroidism, unspecified (principal)
CPT/HCPCS: 36415; 84439; 84443

== ENCOUNTER 2022-11-13 16:15 | Outpatient (REF) | payer MEDICAID, SELFPAY ==
--- NOTE | ~2022-11-13 | XR_ITS ---
EXAMINATION: XR KNEE, RIGHT XR KNEE, LEFT CLINICAL INFORMATION: Chronic bilateral knee pain. COMPARISON: None. TECHNIQUE: Each knee is imaged in 4 views including an upright AP projection. There are a total of 8 views, 4 on each side. FINDINGS: Right: Normal bony mineralization. No fracture, dislocation, destructive process. No significant joint narrowing. No erosive change or chondrocalcinosis. No subchondral sclerosis. There is borderline thickening suprapatellar bursa which may represent a trace effusion. Hoffa's fat pad appears normal. Axial view patella shows no lateralization or tilting. Left: Normal bony mineralization. No fracture, dislocation, destructive process. No significant joint narrowing. No erosive change or chondrocalcinosis. No subchondral sclerosis. No effusion. Hoffa's fat pad appears normal. Axial view patella shows no lateralization or tilting. XR/XR knee LT 3V IMPRESSION: -No significant joint narrowing. No erosive change or chondrocalcinosis. -Borderline/trace effusion on right.
--- NOTE | ~2022-11-13 | XR_ITS ---
EXAMINATION: XR SHOULDER, LEFT CLINICAL INFORMATION: Acute pain left shoulder. COMPARISON: Chest radiograph 05/07/2020. TECHNIQUE: Left shoulder is imaged in 4 views. FINDINGS: There is no acute fracture, dislocation, or arthropathy. The glenohumeral joint appears normal. The acromioclavicular alignment is normal. There are no visible rotator cuff calcifications. The AP view suggests smooth periosteal new bone distal superior clavicle with questionable subcortical lucency on the inferior side just distal to the coracoclavicular ligament. No other bony lesions. Lung apex clear. XR/XR shoulder LT min 2V IMPRESSION: -Subtle nonspecific inhomogeneous mineralization with question of smooth periosteal new bone distal clavicle on one view. Recommend correlation with patient's symptoms, clinical exam, and past trauma history. If clinically indicated, further evaluation for occult bony abnormality may be performed with shoulder MRI. -No acute fracture, dislocation, or arthropathy. No rotator cuff calcification.
--- NOTE | ~2022-11-13 | XR_ITS ---
EXAMINATION: XR ELBOW, LEFT CLINICAL INFORMATION: Left elbow pain COMPARISON: None TECHNIQUE: Left elbow is imaged in 3 views. FINDINGS: Normal bony mineralization. No fracture or dislocation or destructive process. No joint narrowing or erosive changes. No capsular effusion. No periostitis. XR/XR elbow LT min 3V IMPRESSION: Normal left elbow.
--- NOTE | ~2022-11-13 | XR_ITS ---
EXAMINATION: XR KNEE, RIGHT XR KNEE, LEFT CLINICAL INFORMATION: Chronic bilateral knee pain. COMPARISON: None. TECHNIQUE: Each knee is imaged in 4 views including an upright AP projection. There are a total of 8 views, 4 on each side. FINDINGS: Right: Normal bony mineralization. No fracture, dislocation, destructive process. No significant joint narrowing. No erosive change or chondrocalcinosis. No subchondral sclerosis. There is borderline thickening suprapatellar bursa which may represent a trace effusion. Hoffa's fat pad appears normal. Axial view patella shows no lateralization or tilting. Left: Normal bony mineralization. No fracture, dislocation, destructive process. No significant joint narrowing. No erosive change or chondrocalcinosis. No subchondral sclerosis. No effusion. Hoffa's fat pad appears normal. Axial view patella shows no lateralization or tilting. XR/XR knee RT 3V IMPRESSION: -No significant joint narrowing. No erosive change or chondrocalcinosis. -Borderline/trace effusion on right.
== END 2022-11-13 16:16 | disposition home or self-care (01) ==
LOC: HO.XRAY 16:15
PROVIDERS: Visit Provider Emergency Medicine
DX: M25.561 Pain in right knee (principal); M25.562 Pain in left knee; G89.29 Other chronic pain; M25.512 Pain in left shoulder; M25.522 Pain in left elbow
CPT/HCPCS: 73030; 73080; 73562

== ENCOUNTER 2022-12-10 11:48 | Outpatient (REF) | payer MEDICAID, SELFPAY | END 2022-12-10 11:49 | disposition home or self-care (01) | LOC: HO.MDS 11:48 | PROVIDERS: Visit Provider Hospitalist | DX: J45.50 Severe persistent asthma, uncomplicated (principal) | CPT/HCPCS: 96372; J2357 ==

== ENCOUNTER 2022-12-18 10:45 | Outpatient (REF) | payer MEDICAID, SELFPAY ==
[2022-12-18 16:40] LABS: Urine Cytology See Pathology rpt
== END 2022-12-18 10:46 | disposition home or self-care (01) ==
LOC: HO.LAB 10:45
PROVIDERS: PCP Internal Medicine; Visit Provider Nurse Practitioner Family
DX: R31.29 Other microscopic hematuria (principal); N20.0 Calculus of kidney
CPT/HCPCS: 88112; 99212

== ENCOUNTER 2022-12-22 08:07 | Emergency (ER) | payer MEDICAID, SELFPAY ==
--- NOTE | ~2022-12-22 | XR_ITS ---
EXAMINATION: XR TIBIA AND FIBULA, LEFT CLINICAL INFORMATION: Left leg swelling COMPARISON: None TECHNIQUE: AP and lateral views of the left tibia and fibula were obtained. FINDINGS: The bones and soft tissues are normal. No fracture. No osseous lesions. There is mild narrowing in the medial left knee joint space compartment. XR/XR tibia fibula LT 2V IMPRESSION: No acute process. Mild narrowing in the medial left knee joint space compartment.
--- NOTE | ~2022-12-22 | US_ITS ---
EXAMINATION: US VENOUS ULTRASOUND WITH DOPPLER LOWER EXTREMITY, BILATERAL CLINICAL INFORMATION: Bilateral leg swelling COMPARISON: None TECHNIQUE: Ultrasound of the deep veins is performed from the hip to the calf with compression sonography and color and pulse Doppler assessment. Spectral analysis with color-flow imaging is performed. FINDINGS: RIGHT: There is normal venous compression and respiratory variation and augmented flow. The visualized common femoral vein, superficial femoral vein, profunda femoral vein, popliteal vein, and the trifurcation region shows no evidence of deep venous thrombosis. There is a 4 x 0.9 x 2.0 cm right Livingston's cyst. LEFT: There is normal venous compression and respiratory variation and augmented flow. The visualized common femoral vein, superficial femoral vein, profunda femoral vein, popliteal vein, and the trifurcation region shows no evidence of deep venous thrombosis. There is a 1.5 x 0.5 x 1.0 cm Livingston's cyst If the patient's symptoms persist, followup ultrasound in 5 days 7 days might be of value to exclude proximal propagation from a non-visualized calf vein. US/US venous duplex LE BI IMPRESSION: No DVT demonstrated in the bilateral lower stranding densities. Bilateral Livingston's cysts.
--- NOTE | ~2022-12-22 | XR_ITS ---
EXAMINATION: XR TIBIA AND FIBULA, RIGHT CLINICAL INFORMATION: Right leg swelling COMPARISON: None TECHNIQUE: AP and lateral views of the right tibia and fibula were obtained. FINDINGS: The bones and soft tissues are normal. No fracture. No osseous lesions. XR/XR tibia fibula RT 2V IMPRESSION: Normal right tibia and fibula.
[2022-12-22 08:17] VITALS: BP 133/112; PULSE 91; RESP 20; TEMP 36.3; O2SAT 97; BMI 43.9
[2022-12-22 10:44] LABS: Prothrombin Time 11.1 SEC (10.0-13.1)
[2022-12-22 10:46] LABS: Partial Thromboplastin Time 40.1 SEC (26.0-36.4)
[2022-12-22 10:59] LABS: Alanine Aminotransferase 18 U/L (0-31); Albumin Level 4.4 g/dL (3.5-5.0); Alkaline Phosphatase 99 U/L (39-117); Anion Gap 14 (12-20); Aspartate Amino Transferase 21 U/L (5-31); Bilirubin Total 0.4 mg/dL (0.0-1.0); Blood Urea Nitrogen 15 mg/dL (9-16); C Reactive Protein 1.14 mg/dL (< or = 0.50); Calcium 9.5 mg/dL (8.4-10.2); Carbon Dioxide 30 mmol/L (22-29); Chloride 104 mmol/L (96-108); Creatinine Clr Calc Pharmacy 90.4; Estimated Glomerular Filt Rate > 60; Glucose Random 86 mg/dL (60-115); Potassium 3.6 mmol/L (3.3-5.1); Sodium 144 mmol/L (135-145); Total Protein 7.5 g/dL (6.5-8.0)
[2022-12-22 11:06] LABS: B Type Natriuretic Peptide < 10 pg/mL (<100)
--- NOTE | 2022-12-22 11:24 | ED_ITS ---
HPI - General Adult General Chief complaint: Skin/Abscess/Foreign Body Stated complaint: Swollen legs/Rash Time Seen by Provider: 12/22/22 09:30 Source: patient Mode of arrival: ambulatory Limitations: no limitations History of Present Illness HPI narrative: 62-year-old female history of diabetes hypertension presents to the ED for bilateral lower extremity swelling for the past 2 months and intermittent red dots on bilateral lower ankles that are itchy and sometime warm and painful. Patient denies any fever chills or any recent trauma. Patient has schedule ultrasound for next week. Patient states no chest pain or shortness of breath. Related Data Home Medications Medication Instructions Recorded Confirmed albuterol sulfate 90 mcg/actuation 2 puff inhalation QID 07/21/20 11/12/22 aerosol inhaler (Ventolin HFA) amitriptyline 10 mg tablet 10 mg PO BEDTIME 07/21/20 12/19/21 cyclobenzaprine 10 mg tablet 10 mg PO TID PRN muscle spasm 07/21/20 12/19/21 sennosides 8.6 mg capsule (senna) 17.2 mg PO BEDTIME PRN constipation 07/21/20 12/19/21 albuterol sulfate 2.5 mg/3 mL 2.5 mg inhalation Q4-6H PRN 08/29/20 11/12/22 (0.083 %) solution for nebulization Shortness Of Breath Or Wheezing ipratropium 0.5 mg-albuterol 3 mg ml inhalation QID 12/06/21 12/19/21 (2.5 mg base)/3 mL nebulization soln triamcinolone acetonide 0.1 % appl topical BID 12/06/21 12/19/21 topical cream clotrimazole 1 % topical cream appl topical 03/11/22 hydrochlorothiazide 25 mg tablet 25 mg PO DAILY 03/11/22 11/12/22 montelukast 10 mg tablet 10 mg PO QPM 07/14/22 11/12/22 Previous Rx's Medication Instructions Recorded pyridoxine (vitamin B6) 100 mg 100 mg PO DAILY 90 days #90 tabs 12/06/21 tablet fluticasone fur. 200 mcg-umeclid 1 ea inhalation DAILY #60 ea 01/30/22 62.5 mcg-vilant 25 mcg inhalat.powder (Trelegy Ellipta) compress.stocking,knee,reg,med #2 ea 02/27/22 furosemide 20 mg tablet (Lasix) 20 mg PO DAILY 7 days #7 tabs 02/27/22 calcium citrate 500 mg PO BID #120 tabs 04/17/22 fluticasone propionate 50 2 spray intranasal DAILY #16 grams 08/25/22 mcg/actuation nasal spray,suspension loratadine 10 mg tablet 10 mg PO DAILY #30 tabs 08/25/22 cholecalciferol (vitamin D3) 50 50 mcg PO DAILY 30 days #30 caps 08/26/22 mcg (2,000 unit) capsule ibuprofen 800 mg tablet 800 mg PO Q8H PRN pain #14 tabs 09/26/22 levothyroxine 137 mcg tablet 137 mcg PO DAILY 90 days #90 tabs 10/21/22 omalizumab 150 mg/mL subcutaneous 150 mg subcut Q2W 28 days #2 mL 11/07/22 syringe (Xolair) omalizumab 75 mg/0.5 mL 75 mg (0.5 mL) subcut Q2W 28 days 11/07/22 subcutaneous syringe (Xolair) #1 mL cephalexin 500 mg capsule 500 mg PO QID 7 days #28 caps 12/22/22 doxycycline hyclate 100 mg capsule 100 mg PO BID 7 days #14 caps 12/22/22 hydroxyzine HCl 25 mg tablet 25 mg PO TID PRN itching 7 days 12/22/22 #21 tabs prednisone 20 mg tablet 40 mg PO DAILY 5 days #10 tabs 12/22/22 Allergies Allergy/AdvReac Type Severity Reaction Status Date / Time No Known Allergies Allergy Verified 12/18/22 11:24 [No Known Allergies*] Review of Systems Review of Systems: Bilateral lower extremity swelling for 2 months with cuca ing edema and red dots/erythema Yes all other systems are reviewed and are negative PMFSH Past Medical History Medical History Asthma Asthma Asthma Chronic allergic rhinitis Fernando's disease History of primary hyperparathyroidism Hx of renal calculi Hypertension Hypothyroidism Limb swelling Non-toxic multinodular goiter PAOLA (obstructive sleep apnea) Osteopenia Pulmonary nodules Renal calculi Sleep apnea Surgical History H/O partial thyroidectomy History of surgery on arm Hx of cystoscopy Hx of lithotripsy Hx of parathyroidectomy Hx of tubal ligation Status post fine needle aspiration Family History Family History Maternal Grandmother Diabetes Father No problems noted. Mother Hypertension Asthma Social History Social History Are you a primary long term acute care registered nurse to a significant other at home: No Do you presently have visiting nurse or other home services: No Alcohol intake: never Patient Tobacco Use Status: Never used Tobacco Advance Directives: No Advance Directives Information Provided: No Physical Exam ED Vital Signs: Vital Signs - 24 hr 12/22/22 08:17 Temperature 97.4 F Pulse Rate 91 Respiratory Rate 20 Blood Pressure 133/112 H Pulse Oximetry 97 Oxygen Delivery Method Room Air BMI result Body Mass Index 43.9 Const General: cooperative, healthy appearing, comfortable, no acute distress, well developed, alert, awake and Physically active Orientation/consciousness: oriented to person, oriented to place, oriented to time and patient oriented x3 HENMT Head: Yes normal to inspection, Yes No palpable skull fracture present, Yes normocephalic, Yes atraumatic and No abrasion Eyes General: appearance normal, both eyes and all related structures Neck Neck: Yes normal visual inspection, Yes full ROM, Yes no lymphadenopathy, Yes no meningeal signs, Yes trachea midline, Yes supple, No anterior neck swelling and No tender Chest Chest palpation & inspection: normal inspection of the chest and normal palpation of entire chest wall Resp Effort & Inspection: normal respiratory effort and able to speak in complete sentences Auscultation: clear to auscultation bilaterally Cardio Jugular venous distension: no JVD Heart sounds: S1 normal heart sound present and S2 normal heart sound present GI Inspection: Yes normal to inspection and No abdominal wall ecchymosis Palpation (GI): Soft to palpation, not firm, nontender, no guarding and not rigid General: No CVA tenderness and Yes no CVA tenderness Back/Spine/Pelvis Back: no CVA tenderness, No CVA tenderness and No back tenderness Skin General skin exam: no rashes or lesions noted and elasticity normal Neuro General: oriented to person, oriented to place, oriented to time, patient oriented x3, gait normal, tone normal, moves all extremities, Normal light touch and pain sensation, no meningeal signs, no focal motor deficits, CN's II-XI intact bilaterally and normal sensation to monofilament Extrem Other: Bilateral lower extremity swelling with pitting edema some erythema and red dots. Negative for hard nodules. General: Yes normal to inspection and Yes full ROM Psych Appearance: grossly normal, well kempt and not disheveled Course Course Course Narrative: 62-year-old female with bilateral lower extremity swelling for 2 months with redness intermittent red dots. Patient will get ultrasound labs including BMP ESR CRP check for possible inflammation for vasculitis and x-ray to rule out any fractures osteomyelitis. Patient well-appearing Reevaluation(s) Reevaluation #1: BNP negative. Negative for white blood cell count. Bilateral ultrasound of lower extremities negative for DVT but positive for Livingston cyst. Bilateral x- rays negative for osteomyelitis. ESR CRP chronically elevated. Differentials vasculitis, mild cellulitis, versus dermatitis. Bilateral lower extremities motor/neuro/vascular exam intact Time: 13:36 Medical Decision Making Medical Decision Making [facility] Narrative: 62-year-old female for bilateral swelling with redness and intermittent red dots for the past 2 months. Lower extremities warm to touch. No chest pain or shortness of breath. Negative for any calf pain. Imaging results positive for bilateral Livingston cyst. ESR CRP chronically elevated. Negative elevated white blood cell count. X-rays negative for osteomyelitis. Differential Diagnosis Differential Diagnoses: The differential diagnosis associated with the presentation includes (Vasculitis, cellulitis, CHF) Admission/Observation Consideration of admission/observation: Escalation of care including admission/observation considered Lab Data [facility] Lab Attestation statement: I reviewed the patient's lab results. 12/22/22 10:30 Labs: Lab Results 12/22/22 12/22/22 12/22/22 Range/Units 10:30 10:30 10:30 WBC 7.2 (4.8-10.8) X10*3/uL RBC 4.22 (4.20-5.50) X10*6/uL Hgb 12.2 (12.0-16.0) g/dl Hct 36.6 L (37.0-47.0) % MCV 86.7 (80.0-98.0) fL MCH 28.9 (27.0-33.0) pg MCHC 33.3 (31.0-35.0) g/dl RDW 13.1 (11.0-16.0) % Plt Count 411 H (160-400) X10*3/uL MPV 9.7 (9.4-12.3) fL Immature Gran % (Auto) 0.4 (0.0-0.4) % Neut % (Auto) 61.6 (45-73) % Lymph % (Auto) 30.9 (20-40) % [place] % (Auto) 5.0 (2-11) % Eos % (Auto) 1.4 (0-4) % Baso % (Auto) 0.7 (0-2) % Lymph # (Auto) 2.2 (1.2-4.9) X10*3/uL [place] # (Auto) 0.4 (0.1-1.2) X10*3/uL Eos # (Auto) 0.1 (0.0-0.4) X10*3/uL Baso # (Auto) 0.1 (0.0-0.2) X10*3/uL Abs Immat Gran (auto) 0.03 (0.00-0.03) X10*3/uL Absolute Neuts (auto) 4.4 (2.0-8.3) x10*3/uL Absolute Nucleated RBC 0.000 (0.0-0.012) X10*3/uL Nucleated RBC % (auto) 0.0 (0.0-0.2) /100WBC ESR 29 H (0-20) MM/HR PT 11.1 (10.0-13.1) SEC INR 1.0 (0.9-1.1) APTT 40.1 H (26.0-36.4) SEC Sodium (135-145) mmol/L Potassium (3.3-5.1) mmol/L Chloride (96-108) mmol/L Carbon Dioxide (22-29) mmol/L Anion Gap (12-20) BUN (9-16) mg/dL Creatinine (0.5-1.4) mg/dL Estim Creat Clear Calc Estimated GFR Random Glucose (60-115) mg/dL Calcium (8.4-10.2) mg/dL Total Bilirubin (0.0-1.0) mg/dL AST (5-31) U/L ALT (0-31) U/L Alkaline Phosphatase (39-117) U/L C-Reactive Protein (< or = 0.50) mg/dL B-Natriuretic Peptide (<100) pg/mL Total Protein (6.5-8.0) g/dL Albumin (3.5-5.0) g/dL 12/22/22 12/22/22 Range/Units 10:30 10:30 WBC (4.8-10.8) X10*3/uL RBC (4.20-5.50) X10*6/uL Hgb (12.0-16.0) g/dl Hct (37.0-47.0) % MCV (80.0-98.0) fL MCH (27.0-33.0) pg MCHC (31.0-35.0) g/dl RDW (11.0-16.0) % Plt Count (160-400) X10*3/uL MPV (9.4-12.3) fL Immature Gran % (Auto) (0.0-0.4) % Neut % (Auto) (45-73) % Lymph % (Auto) (20-40) % [place] % (Auto) (2-11) % Eos % (Auto) (0-4) % Baso % (Auto) (0-2) % Lymph # (Auto) (1.2-4.9) X10*3/uL [place] # (Auto) (0.1-1.2) X10*3/uL Eos # (Auto) (0.0-0.4) X10*3/uL Baso # (Auto) (0.0-0.2) X10*3/uL Abs Immat Gran (auto) (0.00-0.03) X10*3/uL Absolute Neuts (auto) (2.0-8.3) x10*3/uL Absolute Nucleated RBC (0.0-0.012) X10*3/uL Nucleated RBC % (auto) (0.0-0.2) /100WBC ESR (0-20) MM/HR PT (10.0-13.1) SEC INR (0.9-1.1) APTT (26.0-36.4) SEC Sodium 144 (135-145) mmol/L Potassium 3.6 (3.3-5.1) mmol/L Chloride 104 (96-108) mmol/L Carbon Dioxide 30 H (22-29) mmol/L Anion Gap 14 (12-20) BUN 15 (9-16) mg/dL Creatinine 0.74 (0.5-1.4) mg/dL Estim Creat Clear Calc 90.4 Estimated GFR > 60 Random Glucose 86 (60-115) mg/dL Calcium 9.5 (8.4-10.2) mg/dL Total Bilirubin 0.4 (0.0-1.0) mg/dL AST 21 (5-31) U/L ALT 18 (0-31) U/L Alkaline Phosphatase 99 (39-117) U/L C-Reactive Protein 1.14 H (< or = 0.50) mg/dL B-Natriuretic Peptide < 10 (<100) pg/mL Total Protein 7.5 (6.5-8.0) g/dL Albumin 4.4 (3.5-5.0) g/dL Independent Interpretation I performed an independent interpretation of an: Plain X-Ray and Ultrasound Radiology Impression Discussion of test interpretation with radiology: I have reviewed the radiologist's reading. Independent Historian Clinical information obtained from an independent historian. History obtained from or confirmed by: Other (Daughter) Prescription Management I considered prescription management with: Antibiotic (Keflex and doxy,) and Other (Steroid,) Discharge Plan Discharge Clinical Impression: Vasculitis, Cellulitis, Livingston's cyst of knee Patient Disposition: Home, Self-Care Instructions: Contact Dermatitis (ED), Cellulitis (ED), Bakers Cyst (ED) Additional Instructions: La historia del examen f?sico indica vasculitis versus celulitis o dermatitis leve. Las radiograf?as resultaron negativas para osteomielitis. La ecograf?a bilateral de las extremidades inferiores result? negativa para TVP, abel muestra un quiste de Livingston bilateral. Debe hacer un seguimiento con sosa proveedor de atenci?n primaria para danielle evaluaci?n adicional. Regrese al servicio de urg encias por cualquier dolor en el pecho, dificultad para respirar, empeoramiento del enrojecimiento, dolor en la pantorrilla, fiebre, escalofr?os, dolor en el pecho, dificultad para respirar, hinchaz?n de la lengua, hinchaz?n de las piernas o cualquier otro s?ntoma preocupante. Prescriptions: New prednisone 20 mg tablet 40 mg PO DAILY 5 Days Qty: 10 0RF hydroxyzine HCl 25 mg tablet 25 mg PO TID PRN (Reason: itching) 7 Days Qty: 21 0RF cephalexin 500 mg capsule 500 mg PO QID 7 Days Qty: 28 0RF doxycycline hyclate 100 mg capsule 100 mg PO BID 7 Days Qty: 14 0RF No Action Trelegy Ellipta 200-62.5-25 mcg blister with device 1 ea inhalation DAILY Qty: 60 11RF calcium citrate 250 mg calcium tablet 500 mg PO BID Qty: 120 6RF fluticasone propionate 50 mcg/actuation spray,suspension 2 spray intranasal DAILY Qty: 16 11RF loratadine 10 mg tablet 10 mg PO DAILY Qty: 30 11RF cholecalciferol (vitamin D3) 50 mcg (2,000 unit) capsule 50 mcg PO DAILY 30 Days Qty: 30 5RF levothyroxine 137 mcg tablet 137 mcg PO DAILY 90 Days Qty: 90 5RF Xolair 75 mg/0.5 mL syringe 75 mg subcut Q2W 28 Days Qty: 1 11RF Xolair 150 mg/mL syringe 150 mg subcut Q2W 28 Days Qty: 2 11RF ibuprofen 800 mg tablet 800 mg PO Q8H PRN (Reason: pain) Qty: 14 0RF senna 8.6 mg capsule 17.2 mg PO BEDTIME PRN (Reason: constipation) albuterol sulfate [Ventolin HFA] 90 mcg/actuation HFA aerosol inhaler 2 puff inhalation QID amitriptyline 10 mg tablet 10 mg PO BEDTIME cyclobenzaprine 10 mg tablet 10 mg PO TID PRN (Reason: muscle spasm) albuterol sulfate 2.5 mg /3 mL (0.083 %) solution for nebulization 2.5 mg inhalation Q4-6H PRN (Reason: Shortness Of Breath Or Wheezing) montelukast 10 mg tablet 10 mg PO QPM (DME) compress.stocking,knee,reg,med Misc See Rx Instructions .Route Qty: 2 0RF Rx Instructions: 15-20 cm furosemide [Lasix] 20 mg tablet 20 mg PO DAILY 7 Days Qty: 7 0RF triamcinolone acetonide 0.1 % cream topical BID ipratropium-albuterol 0.5 mg-3 mg(2.5 mg base)/3 mL solution for nebulization inhalation QID pyridoxine (vitamin B6) 100 mg tablet 100 mg PO DAILY 90 Days Qty: 90 1RF clotrimazole 1 % cream topical hydrochlorothiazide 25 mg tablet 25 mg PO DAILY Interventions: ED Discharge Assessment Last Done: 12/22/22 14:23 Discharge Date/Time: 12/22/22 14:23 Print Language: Citizen Of [place]
[2022-12-22 11:29] LABS: Erythrocyte Sedimentation Rate 29 MM/HR (0-20)
[2022-12-22 11:30] LABS: MANUAL DIFF FLAG NO
[2022-12-22 11:34] LABS: Basophils Absolute Auto 0.1 X10*3/uL (0.0-0.2); Basophils Percent Auto 0.7 % (0-2); Eosinophils Absolute Auto 0.1 X10*3/uL (0.0-0.4); Eosinophils Percent Auto 1.4 % (0-4); Hematocrit 36.6 % (37.0-47.0); Hemoglobin 12.2 g/dl (12.0-16.0); Imm Gran Abs Auto 0.03 X10*3/uL (0.00-0.03); Imm Gran Pct Auto 0.4 % (0.0-0.4); Lymphocytes Absolute Auto 2.2 X10*3/uL (1.2-4.9); Lymphocytes Percent Auto 30.9 % (20-40); Mean Corpuscular HGB Conc 33.3 g/dl (31.0-35.0); Mean Corpuscular Hemoglobin 28.9 pg (27.0-33.0); Mean Corpuscular Volume 86.7 fL (80.0-98.0); Mean Platelet Volume 9.7 fL (9.4-12.3); Monocytes Absolute Auto 0.4 X10*3/uL (0.1-1.2); Neutrophils Absolute Auto 4.4 x10*3/uL (2.0-8.3); Neutrophils Percent Auto 61.6 % (45-73); Platelet Count 411 X10*3/uL (160-400); Red Blood Count 4.22 X10*6/uL (4.20-5.50); Red Cell Distribution Width 13.1 % (11.0-16.0); White Blood Count 7.2 X10*3/uL (4.8-10.8)
== END 2022-12-22 14:23 | disposition home or self-care (01) ==
PROVIDERS: Physician Assistant; Emergency Provider Emergency Medicine; PCP Internal Medicine
DX: I77.6 Arteritis, unspecified (principal); M71.22 Synovial cyst of popliteal space [Baker], left knee; L03.116 Cellulitis of left lower limb; L03.115 Cellulitis of right lower limb; R60.0 Localized edema; M25.572 Pain in left ankle and joints of left foot; M25.571 Pain in right ankle and joints of right foot; E11.9 Type 2 diabetes mellitus without complications; I10 Essential (primary) hypertension; Z79.899 Other long term (current) drug therapy
CPT/HCPCS: 36415; 73590; 80053; 83880; 85025; 85610; 85652; 85730; 86140; 93970; 99282; 99284

== ENCOUNTER 2022-12-24 09:45 | Outpatient (REF) | payer MEDICAID, SELFPAY ==
[2022-12-24 11:35] LABS: Urine Cytology See Pathology rpt
== END 2022-12-24 09:46 | disposition home or self-care (01) ==
LOC: HO.LAB 09:45
PROVIDERS: Visit Provider Nurse Practitioner Family
DX: R31.29 Other microscopic hematuria (principal)
CPT/HCPCS: 88112

== ENCOUNTER 2022-12-24 10:24 | Outpatient (REF) | payer MEDICAID, SELFPAY | END 2022-12-24 10:25 | disposition home or self-care (01) | LOC: HO.MDS 10:24 | PROVIDERS: Visit Provider Hospitalist | DX: E21.3 Hyperparathyroidism, unspecified (principal); E03.9 Hypothyroidism, unspecified; M85.80 Other specified disorders of bone density and structure, unspecified site; M25.522 Pain in left elbow; M77.12 Lateral epicondylitis, left elbow; R31.29 Other microscopic hematuria; Z86.39 Personal history of other endocrine, nutritional and metabolic disease; Z79.52 Long term (current) use of systemic steroids; Z79.899 Other long term (current) drug therapy | CPT/HCPCS: 96372; 99202; 99212; J2357 ==

== ENCOUNTER → 2022-12-25 08:17 | Outpatient (REF) | payer MEDICAID, SELFPAY ==
--- NOTE | 2022-12-25 08:21 | CA_ITS ---
Transthoracic Echocardiogram Patient (Last, First, Middle): Diamond Grider E Gender: Female Date of : 1960 Age: 62 Procedure Date: 12/25/2022 Procedure Type: Transthoracic Echocardiogram Location: OP Height: 157.48 cm Weight: 104.33 kg BSA: 2.03 m2 Heart Rate: 78 bpm BP: 132 / 78 mmHg Prepress Specialist: BART Referring MD: Kailash Trevizo [employer] ANALYST Symptoms: M79.89 LOCALIZED SWELLING B/L LEGS Study Quality: Fair ECG Rhythm: Sinus Conclusions: - The left ventricular systolic function is normal. The calculated ejection fraction is 60% by biplane method. - There is mildly increased left ventricular wall thickness. - No obvious valvular pathology seen on this study. - The inferior vena cava is mildly dilated and collapses less than 50% with inspiration. Findings Left Ventricle Normal left ventricular cavity size. There is mildly increased left ventricular wall thickness. The left ventricular systolic function is normal. The calculated ejection fraction is 60% by biplane method. There is no evidence of regional wall motion abnormalities. Diastolic function is normal for age. LV peak GLS -18.9%. Right Ventricle Normal right ventricular cavity size and systolic function. Atria Both atria are normal in size. Aortic Valve There is a normal trileaflet aortic valve. There is no aortic valve stenosis. There is no aortic valve regurgitation. Mitral Valve The mitral valve appears normal. There is no mitral valve regurgitation. There is no mitral valve stenosis. Pulmonic Valve The pulmonic valve is likely normal. Tricuspid Valve Normal tricuspid valve structure. There is trace tricuspid valve regurgitation. There is no evidence of pulmonary hypertension. Great Vessels The asc aorta is normal in size. Venous The inferior vena cava is mildly dilated and collapses less than 50% with inspiration. Pericardium/Pleural There is no evidence of pericardial effusion. Prior Study Comparison No prior study available for comparison. Recommendations, Care & Conclusions No obvious valvular pathology seen on this study. Measurements 2D Linear Measurements IVSd: 1.23 0.6-0.9/0.6-1.0 cm LVIDd: 4.63 3.9-5.3/4.2-5.9 cm LVIDd Index: 2.28 2.4-3.2/2.2-3.1 cm/m2 LVIDs: 2.66 2.0-3.6 cm LVPWd: 1.25 0.7-1.1 cm LA Diam: 3.60 2.7-3.8/3.0-4.0 cm LAIDs Index: 1.77 1.5-2.3 cm/m2 LV Mass: 270.58 67-162/88-224 g LV Mass Index: 133.29 43-95/49-115 g/m2 LVOT Diam: 2.10 3.0+(-)1.3 cm 2D Systolic Function EF 4C: 62.30 >55% EF 2C: 57.20 >55% EF BiP: 59.50 >55% Mitral Valve MV Pk E: 1.10 MV PK A: 0.84 MV Decel Time: 228.00 E/A: 1.30 E'Lateral: 10.10 E'Medial: 11.00 E/E' Med: 10.00 E/E' Lat: 10.90 PHT: 67.00 MVA PHT: 3.28 Decel [place]: 4.80 Aortic Valve AoV Pk Ed[place]: 1.68 AoV Mn [place]: 1.15 AoV VTI: 0.36 AoV Pk Grad: 11.00 Aov Mn Grad: 6.00 GINA Cont.VTI: 2.32 LVOT LVOT Pk [place]: 1.13 LVOT Mn [place]: 0.70 LVOT VTI: 0.24 LVOT Pk Grad: 5.00 LVOT Mn Grad: 2.00 LVOT Diam: 2.10 LVOT Area: 3.46 Diastolic Function MV Pk E: 1.10 MV Pk A: 0.84 E/A: 1.30 E'Medial: 11.00 E/E' Med: 10.00 E' Laterial: 10.10 E/E' Lat: 10.90 Right Ventricle TAPSE (mm): 30.60 TVS' [place]: 13.30 Tricuspid Valve TR Pk [place]: 1.97 TR Pk Grad: 16.00 RA Press: 15.00 RVSP: 31.00 Great Vessels Aorta Sinus of Valsalva: 3.29 2.0-3.[address] [place]: 2.62 1.7-3.4 cm Ao Asc: 2.90 2.1-3.4 cm Updated in Other Vendor System with Status of Final Cristiano Montoya MD electronically signed on 12/26/2022 4:04:07 PM with status of Final
== END ==
LOC: HO.CARD 08:17
PROVIDERS: PCP Internal Medicine; Visit Provider Registered Nurse
DX: R06.02 Shortness of breath (principal); R60.0 Localized edema
CPT/HCPCS: 93306; 93356

== ENCOUNTER 2023-01-02 13:22 | Outpatient (REF) | payer MEDICAID, SELFPAY ==
--- NOTE | ~2023-01-02 | MM_ITS ---
EXAMINATION: BONE DENSITOMETRY CLINICAL INDICATION: Personal history of other endocrine, nutritional and metabolic disease. COMPARISON: Previous BD dated 12/20/2020 and baseline BD dated 11/13/2017. TECHNIQUE: Using a [employer] DXA System (software version: 13.1) manufactured by [employer], dual-energy x-ray absorptiometry was performed of the lumbar spine and left hip and left forearm radius 33%. The images are of good technical quality. Summary results are attached. FINDINGS: AP SPINE L1-L4: Current: BMD 1.057 g/cm2, Z-score -0.8, T-score -1.0, normal, 5.5% increase from previous, 15.0% increase from baseline (<5% change is not significant). Prior: BMD 1.002 g/cm2. Baseline: BMD 0.919 g/cm2. LEFT FEMUR, NECK: Current: BMD 0.843 g/cm2, Z-score -0.8, T-score -1.4, osteopenia. Prior: BMD 0.830 g/cm2. Baseline: BMD 0.806 g/cm2. LEFT FEMUR, TOTAL: Current: BMD 1.053 g/cm2, Z-score 0.6, T-score 0.4, normal, 6.0% increase from previous, 19.8% increase from baseline (<5% change is not significant). Prior: BMD 0.993 g/cm2. Baseline: BMD 0.879 g/cm2. LEFT FOREARM RADIUS 33%: BMD 0.801 g/cm2, Z-score 0.3, T-score -0.9, normal, 4.6% increase from previous, 2.4% increase from baseline (<5% change is not significant). Prior: BMD 0.766 g/cm2. Baseline: BMD 0.782 g/cm2. IDENTIFIED RISK FACTORS: Early menopause, glucocorticoids (chronic), history of fracture (adult), hyperparathyroid, rheumatoid arthritis, secondary osteoporosis, thiazide. HISTORY OF FRACTURE: Humerus. MEDICATIONS: Vitamin D, calcium. MM/XR DEXA appendicular skeleton IMPRESSION: 1. DIAGNOSIS: Osteopenia based on the lowest T-score value of -1.4 in the femoral neck applying World Health Organization criteria. 2. 10-YEAR FRACTURE RISK PREDICTION, FRAX: Major osteoporotic fracture (clinical spine, forearm, hip or shoulder) 13.8%. Hip fracture 1.4%. 3. Treatment Recommendations: NOF guidelines recommend consideration for treatment in postmenopausal women and men age 50 and older presenting with the following: -A hip or vertebral (clinical or morphometric) fracture. -T-score less than or equal to -2.5 at the femoral neck or spine after appropriate evaluation to exclude secondary causes. -Low bone mass at the hip or spine and a 10-year fracture probability by FRAX of greater than or equal to 3% for hip fracture or greater than or equal to 20% for major osteoporotic fracture based on the [place] adapted WHO algorithm. 4. Other Recommendations: All treatment decisions require clinical judgment and consideration of individual patient factors, including patient preferences, comorbidities, previous drug use, risk factors not captured in the FRAX model (e.g. frailty, falls, vitamin D deficiency, increased bone turnover, interval significant decline in bone density) and possible under or overestimation of fracture risk by FRAX. Additional medical evaluation for secondary cause of low bone mineral density may be appropriate. FUTURE SCAN RECOMMENDATION: People with diagnosed cases of osteoporosis or at high risk for fracture should have regular bone mineral density tests. For patients eligible for Medicare, routine testing is allowed once every 2 years. The testing frequency can be increased to one year for patients who have rapidly progressing disease, those who are receiving or discontinuing medical therapy to restore bone mass, or have additional risk factors.
--- NOTE | ~2023-01-02 | MM_ITS ---
EXAMINATION: MM SCREENING DIGITAL BREAST TOMOSYNTHESIS, BILATERAL CLINICAL INFORMATION: Screening. Asymptomatic. The lifetime risk of breast cancer based on the Tyrer-Cuzick Model is 4%. COMPARISON: Mammography: 12/27/2021, 05/11/2020, 11/22/2018 (new baseline). TECHNIQUE: Digital breast tomosynthesis is performed in both the craniocaudal and mediolateral oblique views along with computer-aided detection (CAD). Synthesized 2D images are generated from the tomosynthesis. Additional right CC view is provided. FINDINGS: There are scattered areas of fibroglandular density (ACR BI-RADS breast composition Category b). There are no significant masses, abnormal calcifications, or other abnormalities. Parenchymal pattern is similar to prior studies. There is no developing density or architectural abnormality. The axilla and skin contours are unremarkable. No significant changes. MM/MM tomosynthesis screening BI IMPRESSION: No mammographic evidence of malignancy. ASSESSMENT: BI-RADS 1: Negative RECOMMENDATION: Routine annual mammography screening. This patient's information was entered into a reminder system with a target due date for their next mammogram.
== END 2023-01-02 13:23 | disposition home or self-care (01) ==
LOC: HO.MAMMO 13:22
PROVIDERS: PCP Internal Medicine; Visit Provider Internal Medicine Endocrinology, Diabetes & Metabolism
DX: Z12.31 Encounter for screening mammogram for malignant neoplasm of breast (principal); Z13.820 Encounter for screening for osteoporosis; Z78.0 Asymptomatic menopausal state; Z86.39 Personal history of other endocrine, nutritional and metabolic disease
CPT/HCPCS: 77063; 77067; 77081

== ENCOUNTER 2023-01-05 10:24 | Outpatient (REF) | payer MEDICAID, SELFPAY ==
--- NOTE | ~2023-01-05 | MM_ITS ---
EXAMINATION: DXA VERTEBRAL FRACTURE ASSESSMENT CLINICAL INFORMATION Personal history of other endocrine, nutritional and metabolic disease. Z86.39. COMPARISON: Bone densitometry 01/02/2023. CT abdomen and pelvis 10/03/2021, chest radiographs 05/07/2020. TECHNIQUE: Your patient completed a vertebral fracture assessment using the [employer] DXA system (software version: 14.10) manufactured by [employer]. The following summarizes the results of our evaluation. LVA MORPHOMETRY RESULTS: Evaluation of the thoracolumbar spine from T4 through L4 was performed. Image quality is good. There is mild loss of height at vertebral body L4. The lowest Z score is -3.6 at L4. The highest Z score is +0.8 at T12. MM/XR DEXA vertrebral fracture IMPRESSION: -Mild loss of height vertebral body L4. -The lowest Z score is -3.6 at L4. RECOMMENDATIONS: All patients should ensure an adequate intake of dietary calcium (1200 mg/d) and vitamin D (400-800 IU/d). Effective therapies are now available in the form of bisphosphonates, (alendronate, ibandronate, risedronate, zoledronic acid), antiresorptive agents (calcitonin, estrogen + progesterone and raloxifene) and anabolic agent (teriparatide). These therapies may reduce vertebral, hip and other fractures by up to 50%. FOLLOW-UP: People with diagnosed cases of osteoporosis, high risk for fracture, or current vertebral fractures should have regular bone mineral density tests. The frequency of follow-up vertebral fracture assessment tests should be determined based on clinical circumstances. Often times, testing frequency will be based on rapidly progressing disease, or the addition or elimination of therapy to treat the disease.
== END 2023-01-05 10:25 | disposition home or self-care (01) ==
LOC: HO.MAMMO 10:24
PROVIDERS: PCP Internal Medicine; Visit Provider Internal Medicine Endocrinology, Diabetes & Metabolism
DX: Z13.820 Encounter for screening for osteoporosis (principal); Z86.39 Personal history of other endocrine, nutritional and metabolic disease
CPT/HCPCS: 77086

== ENCOUNTER 2023-01-06 10:31 | Outpatient (REF) | payer MEDICAID, SELFPAY ==
[2023-01-06 12:43] LABS: Free T4 (Free Thyroxine) 1.11 ng/dL (0.71-1.85); Thyroid Stimulating Hormone 3.37 uIU/mL (0.32-4.0)
== END 2023-01-06 10:32 | disposition home or self-care (01) ==
LOC: HO.MDS 10:31
PROVIDERS: Absent Provider Internal Medicine Endocrinology, Diabetes & Metabolism; Visit Provider Hospitalist
DX: J45.50 Severe persistent asthma, uncomplicated (principal); E03.9 Hypothyroidism, unspecified
CPT/HCPCS: 36415; 84439; 84443; 96372; J2357

== ENCOUNTER → 2023-01-23 08:18 | Outpatient (BNVA) | payer MEDICAID, SELFPAY | PROVIDERS: PCP Internal Medicine; Visit Provider Hospitalist | DX: J45.41 Moderate persistent asthma with (acute) exacerbation (principal); R91.8 Other nonspecific abnormal finding of lung field; J30.9 Allergic rhinitis, unspecified; G47.33 Obstructive sleep apnea (adult) (pediatric) | CPT/HCPCS: 99212 ==

== ENCOUNTER 2023-02-03 12:34 | Outpatient (REF) | payer MEDICAID, SELFPAY | END 2023-02-03 12:35 | disposition home or self-care (01) | LOC: HO.MDS 12:34 | PROVIDERS: Visit Provider Hospitalist | DX: J45.50 Severe persistent asthma, uncomplicated (principal) | CPT/HCPCS: 96372; J2357 ==

== ENCOUNTER → 2023-02-05 12:01 | Outpatient (BNVA) | payer MEDICAID, SELFPAY | PROVIDERS: Visit Provider Internal Medicine Endocrinology, Diabetes & Metabolism | DX: E03.9 Hypothyroidism, unspecified (principal); M85.80 Other specified disorders of bone density and structure, unspecified site; Z86.39 Personal history of other endocrine, nutritional and metabolic disease | CPT/HCPCS: 99212 ==

== ENCOUNTER 2023-02-18 10:05 | Outpatient (REF) | payer MEDICAID, SELFPAY | END 2023-02-18 10:06 | disposition home or self-care (01) | LOC: HO.MDS 10:05 | PROVIDERS: Visit Provider Hospitalist | DX: J45.50 Severe persistent asthma, uncomplicated (principal) | CPT/HCPCS: 96372; J2357 ==

== ENCOUNTER 2023-03-04 09:36 | Outpatient (REF) | payer MEDICAID, SELFPAY | END 2023-03-04 09:37 | disposition home or self-care (01) | LOC: HO.MDS 09:36 | PROVIDERS: Visit Provider Hospitalist | DX: J45.50 Severe persistent asthma, uncomplicated (principal) | CPT/HCPCS: 96372; J2357 ==

== ENCOUNTER 2023-03-18 09:50 | Outpatient (REF) | payer MEDICAID, SELFPAY | END 2023-03-18 09:51 | disposition home or self-care (01) | LOC: HO.MDS 09:50 | PROVIDERS: Visit Provider Hospitalist | DX: J45.50 Severe persistent asthma, uncomplicated (principal) | CPT/HCPCS: 96372; J2357 ==

== ENCOUNTER 2023-04-01 09:37 | Outpatient (REF) | payer MEDICAID, SELFPAY | END 2023-04-01 09:38 | disposition home or self-care (01) | LOC: HO.MDS 09:37 | PROVIDERS: Visit Provider Hospitalist | DX: J45.50 Severe persistent asthma, uncomplicated (principal) | CPT/HCPCS: 96372; J2357 ==

== ENCOUNTER 2023-04-15 10:08 | Outpatient (REF) | payer MEDICAID, SELFPAY | END 2023-04-15 10:09 | disposition home or self-care (01) | LOC: HO.MDS 10:08 | PROVIDERS: Visit Provider Hospitalist | DX: J45.50 Severe persistent asthma, uncomplicated (principal) | CPT/HCPCS: 96372; J2357 ==

== ENCOUNTER 2023-04-28 12:13 | Outpatient (REF) | payer MEDICAID, SELFPAY | END 2023-04-28 12:14 | disposition home or self-care (01) | LOC: HO.MDS 12:13 | PROVIDERS: Visit Provider Hospitalist | DX: J45.50 Severe persistent asthma, uncomplicated (principal) | CPT/HCPCS: 96372; J2357 ==

== ENCOUNTER 2023-05-18 09:37 | Outpatient (REF) | payer MEDICAID, SELFPAY | END 2023-05-18 09:38 | disposition home or self-care (01) | LOC: HO.MDS 09:37 | PROVIDERS: Visit Provider Hospitalist | DX: J45.50 Severe persistent asthma, uncomplicated (principal) | CPT/HCPCS: 96372; J2357 ==

== ENCOUNTER 2023-06-01 08:04 | Outpatient (REF) | payer MEDICAID, SELFPAY | END 2023-06-01 08:05 | disposition home or self-care (01) | LOC: HO.MDS 08:04 | PROVIDERS: Visit Provider Hospitalist | DX: J45.50 Severe persistent asthma, uncomplicated (principal) | CPT/HCPCS: 96372; J2357 ==

== ENCOUNTER 2023-06-01 09:00 | Outpatient (REF) | payer MEDICAID, SELFPAY ==
[2023-06-01 12:42] LABS: Alanine Aminotransferase 15 U/L (0-31); Albumin Level 4.1 g/dL (3.5-5.0); Alkaline Phosphatase 91 U/L (39-117); Anion Gap 14 (12-20); Aspartate Amino Transferase 18 U/L (5-31); Bilirubin Total 0.4 mg/dL (0.0-1.0); Blood Urea Nitrogen 16 mg/dL (9-16); Calcium 9.7 mg/dL (8.4-10.2); Carbon Dioxide 31 mmol/L (22-29); Chloride 103 mmol/L (96-108); Cholesterol 168 mg/dL; Estimated Glomerular Filt Rate > 60; Glucose Random 91 mg/dL (60-115); HDL Cholesterol 64 mg/dL; LDL Cholesterol Calculated 89 mg/dl; Potassium 3.7 mmol/L (3.3-5.1); Sodium 144 mmol/L (135-145); Total Protein 7.4 g/dL (6.5-8.0); Triglycerides 78 mg/dL
[2023-06-01 13:01] LABS: TSH reflex Free T4 8.76 uIU/mL (0.32-4.0)
[2023-06-01 18:53] LABS: Free T4 (Free Thyroxine) 0.97 ng/dL (0.71-1.85)
== END 2023-06-01 09:01 | disposition home or self-care (01) ==
LOC: HO.HHCL 09:00
PROVIDERS: Visit Provider Registered Nurse
DX: E03.9 Hypothyroidism, unspecified (principal); E78.5 Hyperlipidemia, unspecified
CPT/HCPCS: 36415; 80053; 80061; 84439; 84443

== ENCOUNTER 2023-06-12 09:39 | Outpatient (REF) | payer MEDICAID, SELFPAY ==
--- NOTE | ~2023-06-12 | US_ITS ---
EXAMINATION: US RETROPERITONEAL LIMITED (RENAL ONLY) CLINICAL INFORMATION: Calculus of kidney. COMPARISON: Renal ultrasound 08/05/2022 and 09/19/2021. CT abdomen and pelvis 10/03/2021. X-ray KUB 02/16/2019. TECHNIQUE: Real-time imaging of the kidneys. FINDINGS: RIGHT KIDNEY: 11.8 x 4.9 x 6.0 cm (SAG x AP x TRV). The kidney is normal in size and echogenicity. There is focal renal cortical scarring in the lateral mid to lower pole which appears unchanged. Renal cortical thickness is otherwise normal. No calculi or focal parenchymal lesions. No hydronephrosis. No intrarenal calculi are demonstrated. LEFT KIDNEY: 11.1 x 5.8 x 5.9 cm (SAG x AP x TRV). The kidney is normal in size, contour, and echogenicity. Renal cortical thickness is normal. No focal parenchymal lesions or hydronephrosis. There is a 4 mm nonobstructing intrarenal calculus in the lower pole. ADDITIONAL FINDINGS: There is a lobulated cyst in the right lobe liver measuring 2.5 x 2.3 x 1.9 cm. US/US renal BI IMPRESSION: Stable right renal cortical scarring in the mid to lower pole. Nonobstructive 4 mm left lower pole intrarenal calculus. No hydronephrosis..
== END 2023-06-12 09:40 | disposition home or self-care (01) ==
LOC: HO.US 09:39
PROVIDERS: Visit Provider Nurse Practitioner Family
DX: N20.0 Calculus of kidney (principal)
CPT/HCPCS: 76775

== ENCOUNTER 2023-06-18 09:33 | Outpatient (REF) | payer MEDICAID, SELFPAY | END 2023-06-18 09:34 | disposition home or self-care (01) | LOC: HO.MDS 09:33 | PROVIDERS: Visit Provider Hospitalist | DX: J45.50 Severe persistent asthma, uncomplicated (principal) | CPT/HCPCS: 96372; J1756; J2357 ==

== ENCOUNTER 2023-07-01 09:18 | Emergency (ER) | payer MEDICAID, SELFPAY ==
[2023-07-01 09:25] VITALS: PULSE 93; RESP 19; TEMP 36.6; O2SAT 99; BMI 44.4
--- NOTE | 2023-07-01 10:45 | ED_ITS ---
HPI - General Adult General Chief complaint: General Medical Stated complaint: B/L Leg Pain No Injury Time Seen by Provider: 07/01/23 09:46 Source: patient Mode of arrival: ambulatory Limitations: no limitations History of Present Illness HPI narrative: 62-year-old female presents to the ER for evaluation of lower extremity rash for the last 2 weeks. It has been worsening and spreading. It is itchy, red but not painful. Patient states she started with 1 lesion on the left lower leg that was red, large, circular, flat but itchy. It is slowly spread to other areas of her left lower leg as well as areas on her right lower leg. She got a topical cream from her doctor with no improvement in her symptoms. She also reports generalized swelling of her lower extremities that has been present for the last few weeks as well. No calf pain or swelling. No erythema, warmth or skin changes of the calves. No chest pain or shortness of breath. No rash other locations on the body. No new soaps, lotions, detergents. family reports they are cockroaches in her building and they are wondering if this could be due to cockroaches. MD complaint: itchy rash to LE Onset (ago): week(s) (2) Location: left, right and lower extremity Radiation: proximal Severity: moderate Quality: other (itching) Pain Consistency: constant Relieving factors: none Exacerbating factors: none Associated symptoms: denies other symptoms Treatments prior to arrival: none Related Data Home Medications Medication Instructions Recorded Confirmed amitriptyline 10 mg tablet 10 mg PO BEDTIME 07/21/20 12/19/21 cyclobenzaprine 10 mg tablet 10 mg PO TID PRN muscle spasm 07/21/20 12/19/21 sennosides 8.6 mg capsule (senna) 17.2 mg PO BEDTIME PRN constipation 07/21/20 12/19/21 albuterol sulfate 2.5 mg/3 mL 2.5 mg inhalation Q4-6H PRN 08/29/20 11/12/22 (0.083 %) solution for nebulization Shortness Of Breath Or Wheezing ipratropium 0.5 mg-albuterol 3 mg ml inhalation QID 12/06/21 12/19/21 (2.5 mg base)/3 mL nebulization soln triamcinolone acetonide 0.1 % appl topical BID 12/06/21 12/19/21 topical cream clotrimazole 1 % topical cream appl topical 03/11/22 hydrochlorothiazide 25 mg tablet 25 mg PO DAILY 03/11/22 11/12/22 nebulizers 01/23/23 ammonium lactate 12 % topical cream appl topical 02/05/23 clobetasol 0.05 % topical ointment g topical BID 02/05/23 Previous Rx's Medication Instructions Recorded pyridoxine (vitamin B6) 100 mg 100 mg PO DAILY 90 days #90 tabs 12/06/21 tablet compress.stocking,knee,reg,med #2 ea 02/27/22 furosemide 20 mg tablet (Lasix) 20 mg PO DAILY 7 days #7 tabs 02/27/22 calcium citrate 500 mg (2 x 250 mg calcium) PO BID 04/17/22 #120 tabs ibuprofen 800 mg tablet 800 mg PO Q8H PRN pain #14 tabs 09/26/22 levothyroxine 137 mcg tablet 137 mcg PO DAILY 90 days #90 tabs 10/21/22 omalizumab 150 mg/mL subcutaneous 150 mg subcut Q2W 28 days #2 mL 11/07/22 syringe (Xolair) omalizumab 75 mg/0.5 mL 75 mg (0.5 mL) subcut Q2W 28 days 11/07/22 subcutaneous syringe (Xolair) #1 mL hydroxyzine HCl 25 mg tablet 25 mg PO TID PRN itching 7 days 12/22/22 #21 tabs prednisone 20 mg tablet 40 mg (2 x 20 mg) PO DAILY 5 days 12/22/22 #10 tabs naproxen 500 mg tablet 500 mg PO BID 30 days #60 tabs 12/24/22 albuterol sulfate 90 mcg/actuation 2 puff inhalation QID PRN 01/23/23 aerosol inhaler (Ventolin HFA) shortness of breath or wheezing 30 days #8.5 grams epinephrine 0.3 mg/0.3 mL 0.3 mg (0.3 mL) IM Q10M PRN 01/23/23 injection, auto-injector (EpiPen anaphylaxis 30 days #2 ea 2-Carlos Eduardo) fluticasone fur. 200 mcg-umeclid 1 ea inhalation DAILY #60 ea 01/23/23 62.5 mcg-vilant 25 mcg inhalat.powder (Trelegy Ellipta) fluticasone propionate 50 2 spray intranasal DAILY #16 grams 01/23/23 mcg/actuation nasal spray,suspension loratadine 10 mg tablet 10 mg PO DAILY #30 tabs 01/23/23 montelukast 10 mg tablet 10 mg PO QPM 30 days #30 tabs 01/23/23 cholecalciferol (vitamin D3) 50 50 mcg PO DAILY #90 caps 06/29/23 mcg (2,000 unit) capsule (Vitamin D3) diphenhydramine HCl 25 mg capsule 50 mg (2 x 25 mg) PO TID PRN 07/01/23 (Benadryl) itching #20 caps prednisone 50 mg tablet 50 mg PO DAILY #5 tabs 07/01/23 Allergies Allergy/AdvReac Type Severity Reaction Status Date / Time No Known Allergies Allergy Verified 07/01/23 09:24 [No Known Allergies*] Review of Systems Review of Systems: Yes all other systems are reviewed and are negative [facility] Past Medical History Medical History Asthma Asthma Asthma Chronic allergic rhinitis Fernando's disease History of primary hyperparathyroidism Hx of renal calculi Hypertension Hypothyroidism Limb swelling Non-toxic multinodular goiter PAOLA (obstructive sleep apnea) Osteopenia Pulmonary nodules Renal calculi Sleep apnea Surgical History H/O partial thyroidectomy History of surgery on arm Hx of cystoscopy Hx of lithotripsy Hx of parathyroidectomy Hx of tubal ligation Status post fine needle aspiration Family History Family History Maternal Grandmother Diabetes Father No problems noted. Mother Hypertension Asthma Social History Social History Are you a primary healthcare network pricing consultant to a significant other at home: No Do you presently have visiting nurse or other home services: No Alcohol intake: never Patient Tobacco Use Status: Never used Tobacco Advance Directives: No Advance Directives Information Provided: Yes Current occupational status: disabled Current occupation: right hand dominant Physical Exam ED Vital Signs: Vital Signs - 24 hr 07/01/23 09:25 Temperature 98 F Pulse Rate 93 Respiratory Rate 19 Pulse Oximetry 99 Oxygen Delivery Method Room Air BMI result Body Mass Index 44.4 Appearance: Alert. Oriented X3. No acute distress. HEENT: normal inspection CVS: Normal heart rate and rhythm. Pulses normal. Respiratory: No respiratory distress. Skin: Skin warm and dry. Normal skin color. Normal skin turgor. No rashes. Extremities: bilateral lower extremities with scattered flat macular e rythematous rash, nontender, no flaking, scaling or vesicles. no pitting edema of LE. calves nontender Neuro: Oriented X 3. No motor deficit. No sensory deficit. Medical Decision Making Medical Decision Making MDM Narrative: 62-year-old female presents to the ER for evaluation of bilateral lower extremity rash and swelling. The rash is flat, erythematous, pruritic. She would like to see a gore cutter for a biopsy. We discussed outpatient role of that and referral for Dermatology. His no evidence of blood clot on exam, does not appear to be infected, low suspicion for cellulitis or abscess. Will start empiric prednisone and Benadryl for symptom management will refer to Dermatology. Comfortable discharge home. per diem interpreter used to discuss treatment and return precautions. Differential Diagnosis Differential Diagnoses: The differential diagnosis associated with the presentation includes allergic dermatitis, contact dermatitis, eczema, vasculitis, purpura, Tick- borne illness, cellulitis External Record Review External record reviewed: Outpatient record and Prior outpatient labs Tests considered The following testing was considered but not selected: lab prepped considered however low suspicion for infection ultrasound lower extremities were considered however no clinical evidence of deep vein thrombosis at this time Prescription Management I considered prescription management with: Other (prednisone) Critical Care Time Critical Care Time Critical Care Time: No Discharge Plan Discharge Clinical Impression: Rash Patient Disposition: Home, Self-Care Instructions: Acute Rash (ED) Additional Instructions: Take the prescribed prednisone medication as directed, complete the entire course. Take the prescribed Benadryl as needed for itching. Follow up with your doctor. Also recommend following up with dermatology for further evaluation and treatment [facility] [address] [place] [address]. [address] [place], [place] [id number] If you develop new or worsening symptoms call 911 or come back to the ER for further evaluation. [place] el medicamento prednisona recetado seg?n las indicaciones y complete todo el tratamiento. [place] el Benadryl recetado seg?n sea necesario para la picaz?n. Teena un seguimiento con sosa m?dico. Tambi?n recomendar seguimiento con dermatolog?a para mayor evaluaci?n y tratamiento. Dermatolog?a de ladera [address] [place] [id number] Si desarrolla s?ntomas nuevos o que empeoran, llame al 911 o regrese a la prasanna de emergencias para danielle evaluaci?n adicional. Prescriptions: New prednisone 50 mg tablet 50 mg PO DAILY Qty: 5 0RF diphenhydramine HCl [Benadryl] 25 mg capsule 50 mg PO TID PRN (Reason: itching) Qty: 20 0RF No Action calcium citrate 250 mg calcium tablet 500 mg PO BID Qty: 120 6RF levothyroxine 137 mcg tablet 137 mcg PO DAILY 90 Days Qty: 90 5RF Xolair 75 mg/0.5 mL syringe 75 mg subcut Q2W 28 Days Qty: 1 11RF Xolair 150 mg/mL syringe 150 mg subcut Q2W 28 Days Qty: 2 11RF cholecalciferol (vitamin D3) [Vitamin D3] 50 mcg (2,000 unit) capsule 50 mcg PO DAILY Qty: 90 1RF ibuprofen 800 mg tablet 800 mg PO Q8H PRN (Reason: pain) Qty: 14 0RF prednisone 20 mg tablet 40 mg PO DAILY 5 Days Qty: 10 0RF hydroxyzine HCl 25 mg tablet 25 mg PO TID PRN (Reason: itching) 7 Days Qty: 21 0RF senna 8.6 mg capsule 17.2 mg PO BEDTIME PRN (Reason: constipation) amitriptyline 10 mg tablet 10 mg PO BEDTIME cyclobenzaprine 10 mg tablet 10 mg PO TID PRN (Reason: muscle spasm) albuterol sulfate 2.5 mg /3 mL (0.083 %) solution for nebulization 2.5 mg inhalation Q4-6H PRN (Reason: Shortness Of Breath Or Wheezing) (DME) nebulizers Misc See Rx Instructions .Route Rx Instructions: As directed epinephrine [EpiPen 2-Carlos Eduardo] 0.3 mg/0.3 mL auto-injector 0.3 mg IM Q10M PRN (Reason: anaphylaxis) 30 Days Qty: 2 6RF Rx Instructions: for 2 doses albuterol sulfate [Ventolin HFA] 90 mcg/actuation HFA aerosol inhaler 2 puff inhalation QID PRN (Reason: shortness of breath or wheezing) 30 Days Qty: 8.5 11RF fluticasone propionate 50 mcg/actuation spray,suspension 2 spray intranasal DAILY Qty: 16 11RF Trelegy Ellipta 200-62.5-25 mcg blister with device 1 ea inhalation DAILY Qty: 60 11RF loratadine 10 mg tablet 10 mg PO DAILY Qty: 30 11RF montelukast 10 mg tablet 10 mg PO QPM 30 Days Qty: 30 11RF naproxen 500 mg tablet 500 mg PO BID 30 Days Qty: 60 3RF clobetasol 0.05 % ointment topical BID ammonium lactate 12 % cream topical (DME) compress.stocking,knee,reg,med Misc See Rx Instructions .Route Qty: 2 0RF Rx Instructions: 15-20 cm furosemide [Lasix] 20 mg tablet 20 mg PO DAILY 7 Days Qty: 7 0RF triamcinolone acetonide 0.1 % cream topical BID ipratropium-albuterol 0.5 mg-3 mg(2.5 mg base)/3 mL solution for nebulization inhalation QID pyridoxine (vitamin B6) 100 mg tablet 100 mg PO DAILY 90 Days Qty: 90 1RF clotrimazole 1 % cream topical hydrochlorothiazide 25 mg tablet 25 mg PO DAILY Referrals: [place],[facility] [Primary Care Provider] - Interventions: ED Discharge Assessment Last Done: 07/01/23 11:38 Discharge Date/Time: 07/01/23 11:39
== END 2023-07-01 11:39 | disposition home or self-care (01) ==
PROVIDERS: Emergency Provider Emergency Medicine Emergency Medical Services
DX: R21 Rash and other nonspecific skin eruption (principal); Z79.899 Other long term (current) drug therapy
CPT/HCPCS: 99282; 99283

== ENCOUNTER 2023-07-02 11:54 | Outpatient (REF) | payer MEDICAID, SELFPAY | END 2023-07-02 11:55 | disposition home or self-care (01) | LOC: HO.MDS 11:54 | PROVIDERS: Visit Provider Hospitalist | DX: J45.50 Severe persistent asthma, uncomplicated (principal) | CPT/HCPCS: 96372; J2357 ==

== ENCOUNTER 2023-07-20 10:37 | Outpatient (REF) | payer MEDICAID, SELFPAY | END 2023-07-20 10:38 | disposition home or self-care (01) | LOC: HO.MDS 10:37 | PROVIDERS: Visit Provider Hospitalist | DX: J45.50 Severe persistent asthma, uncomplicated (principal) | CPT/HCPCS: 96372; J2357 ==

== ENCOUNTER 2023-07-21 10:26 | Day surgery (SDC) | payer MEDICAID, SELFPAY ==
--- NOTE | 2023-07-20 11:30 | HO.ANESPROP2 ---
Documented by User: Dorie Frank NP 07/20/23 11:36 HPI - Anesthesia Eval Consult details Narrative: 62yo F for Upper Endoscopy and Colonoscopy Follows [facility] pulm for asthma - stable with xolair injections PMFSH Active Problems Active Problems: All Active Problems (Updated 07/02/23 @ 00:01 by Julieth Hicks) Left lateral epicondylitis (Acute) Microhematuria (Acute) Asthma (Acute) Asthma (Acute) Sleep apnea (Acute) Renal calculi (Acute) Limb swelling (Acute) Chest pain (Acute) Abnormal nuclear stress test (Acute) Pulmonary nodules (Acute) PAOLA (obstructive sleep apnea) (Acute) Chronic allergic rhinitis (Acute) Asthma (Acute) Hypertension (Acute) History of primary hyperparathyroidism (Acute) Hypothyroidism (Acute) Non-toxic multinodular goiter (Acute) Osteopenia (Acute) Fernando's disease (Acute) Past Medical History Medical History Asthma Asthma Asthma Chronic allergic rhinitis Fernando's disease History of primary hyperparathyroidism Hx of renal calculi Hypertension Hypothyroidism Limb swelling Non-toxic multinodular goiter PAOLA (obstructive sleep apnea) Osteopenia Pulmonary nodules Renal calculi Sleep apnea Family History Family History Maternal Grandmother Diabetes Father No problems noted. Mother Hypertension Asthma Surgical History Surgical History H/O partial thyroidectomy History of surgery on arm Hx of cystoscopy Hx of lithotripsy Hx of parathyroidectomy Hx of tubal ligation Status post fine needle aspiration Social History Social History Are you a primary district manager primary care sales to a significant other at home: No Do you presently have visiting nurse or other home services: No Alcohol intake: never Patient Tobacco Use Status: Never used Tobacco Advance Directives: No Advance Directives Information Provided: Yes Current occupational status: disabled Current occupation: right hand dominant Meds Allergies Allergy/AdvReac Type Severity Reaction Status Date / Time No Known Allergies Allergy Verified 07/21/23 11:11 [No Known Allergies*] Home Medications Medication Instructions Recorded Confirmed Last Taken Type amitriptyline 10 mg tablet 10 mg PO BEDTIME 07/21/20 12/19/21 Unknown History cyclobenzaprine 10 mg tablet 10 mg PO TID PRN muscle spasm 07/21/20 12/19/21 Unknown History sennosides 8.6 mg capsule (senna) 17.2 mg PO BEDTIME PRN constipation 07/21/20 12/19/21 Unknown History albuterol sulfate 2.5 mg/3 mL 2.5 mg inhalation Q4-6H PRN 08/29/20 11/12/22 Unknown History (0.083 %) solution for nebulization Shortness Of Breath Or Wheezing ipratropium 0.5 mg-albuterol 3 mg ml inhalation QID 12/06/21 12/19/21 Unknown History (2.5 mg base)/3 mL nebulization soln triamcinolone acetonide 0.1 % appl topical BID 12/06/21 12/19/21 Unknown History topical cream clotrimazole 1 % topical cream appl topical 03/11/22 Unknown History hydrochlorothiazide 25 mg tablet 25 mg PO DAILY 03/11/22 11/12/22 Unknown History nebulizers 01/23/23 Unknown History ammonium lactate 12 % topical cream appl topical 02/05/23 Unknown History clobetasol 0.05 % topical ointment g topical BID 02/05/23 Unknown History Exam Exam Date and Time: July 20, 2023 1130 Pertinent Lab Results Pertinent Lab Results: Laboratory Tests 12/22/22 06/01/23 10:30 09:06 WBC 7.2 Hgb 12.2 Hct 36.6 L Plt Count 411 H Sodium 144 Potassium 3.7 Chloride 103 Carbon Dioxide 31 H BUN 16 Creatinine 0.79 Narrative Narrative: ECHO 12/2022 Conclusions: - The left ventricular systolic function is normal. The calculated ejection fraction is 60% by biplane method. - There is mildly increased left ventricular wall thickness. - No obvious valvular pathology seen on this study. - The inferior vena cava is mildly dilated and collapses less than 50% with inspiration. Assessment and Plan Assessment Anesthesia Assessment: Chart Reviewed Documented by User: Srikanth Gibbs MD 07/21/23 11:12 [facility] Past Medical History Medical History Asthma Asthma Asthma Chronic allergic rhinitis Fernando's disease History of primary hyperparathyroidism Hx of renal calculi Hypertension Hypothyroidism Limb swelling Non-toxic multinodular goiter PAOLA (obstructive sleep apnea) Osteopenia Pulmonary nodules Renal calculi Sleep apnea Family History Family History Maternal Grandmother Diabetes Father No problems noted. Mother Hypertension Asthma Family history of problems with anesthesia: No Surgical History Surgical History H/O partial thyroidectomy History of surgery on arm Hx of cystoscopy Hx of lithotripsy Hx of parathyroidectomy Hx of tubal ligation Status post fine needle aspiration History of Problems with Anesthesia: No Social History Social History Are you a primary district manager primary care sales to a significant other at home: No Do you presently have visiting nurse or other home services: No Alcohol intake: never Patient Tobacco Use Status: Never used Tobacco Advance Directives: No Advance Directives Information Provided: Yes Current occupational status: disabled Current occupation: right hand dominant Meds Allergies Allergy/AdvReac Type Severity Reaction Status Date / Time No Known Allergies Allergy Verified 07/21/23 11:11 [No Known Allergies*] Home Medications Medication Instructions Recorded Confirmed Last Taken Type amitriptyline 10 mg tablet 10 mg PO BEDTIME 07/21/20 12/19/21 Unknown History cyclobenzaprine 10 mg tablet 10 mg PO TID PRN muscle spasm 07/21/20 12/19/21 Unknown History sennosides 8.6 mg capsule (senna) 17.2 mg PO BEDTIME PRN constipation 07/21/20 12/19/21 Unknown History albuterol sulfate 2.5 mg/3 mL 2.5 mg inhalation Q4-6H PRN 08/29/20 11/12/22 Unknown History (0.083 %) solution for nebulization Shortness Of Breath Or Wheezing ipratropium 0.5 mg-albuterol 3 mg ml inhalation QID 12/06/21 12/19/21 Unknown History (2.5 mg base)/3 mL nebulization soln triamcinolone acetonide 0.1 % appl topical BID 12/06/21 12/19/21 Unknown History topical cream clotrimazole 1 % topical cream appl topical 03/11/22 Unknown History hydrochlorothiazide 25 mg tablet 25 mg PO DAILY 03/11/22 11/12/22 Unknown History nebulizers 01/23/23 Unknown History ammonium lactate 12 % topical cream appl topical 02/05/23 Unknown History clobetasol 0.05 % topical ointment g topical BID 02/05/23 Unknown History Exam Airway Mallampati Class: II TM Dist: >3cm Neck ROM: Full Assessment and Plan Assessment Anesthesia Assessment: Anesthesia Plan Discussed Final Anesthetic Review Family History of Problems with Anesthesia: No History of Problems with Anesthesia: No NPO: Yes ASA Class: III Final Preanesthetic Review: No Changes in Pt Med Stat, Meds/Allgs Chart Reviewed, Consent Obtained/Reviewed and Anes Risks/Benef Reviewed Patient Risk: Intermediate Procedure Risk: Low Anesthetic Plan Anesthetic Plan: MAC: Disposition: Standard PACU
[2023-07-21 11:18] VITALS: BMI 43.9
[2023-07-21 11:26] VITALS: BP 143/61; PULSE 75; RESP 16; TEMP 36.7; O2SAT 97
--- NOTE | 2023-07-21 12:03 | MHC.SHP ---
Pre-Procedural Eval Section A Date of Service: 07/21/23 Section B Chief Complaint: screening ,GERD Relevant Family History (Specify if Yes): No Relevant Social History: None Present Medications: see Short Stay Collaborative assessment Medical History: Significant History (Asthma Chronic allergic rhinitis Fernando's disease History of primary hyperparathyroidism Hx of renal calculi Hypertension Hypothyroidism Limb swelling Non-toxic multinodular goiter PAOLA (obstructive sleep apnea) Osteopenia Pulmonary nodules Renal calculi Sleep apnea) History of Previous Operations: Relevant previous surgery/procedure and date(s) (H/O partial thyroidectomy History of surgery on arm Hx of cystoscopy Hx of lithotripsy Hx of parathyroidectomy Hx of tubal ligation Status post fine needle aspiration) Allergies: Allergies Allergy/AdvReac Type Severity Reaction Status Date / Time No Known Allergies Allergy Verified 07/21/23 11:11 [No Known Allergies*] Review of Systems Sugical H&P ROS: Negative: Constitution, Cardiovascular, Respiratory, Neurological, Psychiatric, Hem-Onc, Allergic/Immunologic, Gastrointestinal, Genitourinary, Musculoskeletal, Integumentary, Endocrine and Eyes/Ears/Nose/Throat Exam Surgical H&P Exam: Normal: HEENT, Normal: Heart, Normal: Lungs, Normal: Extremities, Normal: Abdomen, Normal: Skin and Normal: Neurological Plan Diagnosis/Plan: Unchanged I have reviewed the history and physical and performed a pertinent physical examination on my patient. No changes have occurred unless specified. Time Spent With Patient Time: Total time managing care of this patient today ____ minutes.
--- NOTE | 2023-07-21 12:04 | P.OP_ITS ---
Operative Note Operative Note Date of Service: 07/21/23 Narrative: Operative Information Procedure Description: EGD, Colonoscopy Indication: GERD, screening Anesthesia: MAC FLEXIBLE TRANSORAL UPPER GASTROINTESTINAL ENDOSCOPY AND COLONOSCOPY PROCEDURE NOTE UPPER ENDOSCOPY Consent: Indications for the procedure and potential complications of bleeding, perforation, reaction to medications and missed diagnosis were discussed with the patient and informed consent was obtained. Instrument: Olympus GIF H 190 J mid size upper endoscope Monitoring: Vital signs and clinical assessment, continuous EKG monitoring, Pulse oximetry, Carbon Dioxide monitoring and blood pressure monitoring were done throughout the procedure. Procedure: The patient was placed in the left lateral decubitis position and pre-procedure medications were administered and a bite block was placed. The endoscope was inserted into the mouth and advanced under direct vision to the third part of duodenum. A careful inspection was made as the upper endoscope was withdrawn including a retroflexed examination of the proximal stomach; Findings and interventions are described below. Findings: Larynx:normal Esophagus: GE junction at 35 cm, diaphragm hiatus at 35 cm, mild esophagitis at GEJ, bx taken Stomach: Patchy erythema . Biopsies were obtained. Grade 2 flap valve on retroflexed examination of the cardia. Duodenum: Normal bulb and descending duodenum, Intervention: Biopsies as noted above COLONOSCOPY Instrument: Olympus variable stiffness pediatric scope 190L Colonoscopy Monitoring: Vital signs and clinical assessment, continuous EKG monitoring, Pulse oximetry, Carbon Dioxide monitoring and blood pressure monitoring were done throughout the procedure. Colon withdrawal time was 12 minutes. Procedure: The patient was placed in the left lateral decubitis position and pre-procedure medications were administered. After a digital rectal examination of the ano-rectum, the video colonoscope was inserted into the rectum and advanced through the colon to the cecum/TI. The colonoscope was slowly withdrawn in a retrograde panoramic fashion and the colon mucosa was carefully examined including a retroflexed view of the rectum. Findings and interventions are described below. Procedure Difficulty:easy Findings: Terminal Ileum-normal Cecum: 4-5 mm sessile polyp removed with cold forceps Ascending Colon: 6-8 mm sessile polyp removed with cold snare Transverse Colon -normal Descending Colon:normal Sigmoid Colon:mild to moderate diverticulosis Rectum: Retroflexion with small internal hemorrhoids, grade I Anorectum - normal Colon preparation: [place] Bowel Preparation Scale Right colon; 1-2 Transverse colon: 1-2 Left colon; 1-2 (0 = Unprepared colon segment with mucosa not seen due to solid stool that cannot be cleared. 1 = Portion of mucosa of the colon segment seen, but other areas of the colon segment not well seen due to staining, residual stool and/or opaque liquid. 2 = Minor amount of residual staining, small fragments of stool and/or opaque liquid, but mucosa of colon segment seen well. 3 = Entire mucosa of colon segment seen well with no residual staining, small fragments of stool or opaque liquid) Impression and Post Procedure Diagnosis: Endoscopy Findings: gastritis esophagitis Colonoscopy Findings: polyps internal hemorrhoids diverticular disease Plan: Await Pathology results Repeat Colonoscopy in 1-2 years due to fair prep or earlier if clinically indicated High fiber diet leaflet avoid straining at stool, epsom salts and sitz bath, anusol supps or cream if h pylori pos then treat Above findings were reviewed with the patient and relevant handouts were provided if indicated.
[2023-07-21 12:46] VITALS: BP 120/58; PULSE 77; RESP 16; TEMP 36.1; O2SAT 98
[2023-07-21 13:01] VITALS: BP 132/55; PULSE 68; RESP 16; O2SAT 97
[2023-07-21 13:16] VITALS: BP 126/79; PULSE 71; RESP 16; TEMP 36.2; O2SAT 97
== END 2023-07-21 13:54 | disposition home or self-care (01) ==
PROVIDERS: Visit Provider Internal Medicine Gastroenterology
PROC: (CPT 45385; principal; 2023-07-21 12:30)
DX: Z12.11 Encounter for screening for malignant neoplasm of colon (principal); D12.2 Benign neoplasm of ascending colon; D12.0 Benign neoplasm of cecum; K57.30 Diverticulosis of large intestine without perforation or abscess without bleeding; K64.0 First degree hemorrhoids; K20.90 Esophagitis, unspecified without bleeding; K29.70 Gastritis, unspecified, without bleeding; K21.9 Gastro-esophageal reflux disease without esophagitis; I10 Essential (primary) hypertension; J45.909 Unspecified asthma, uncomplicated; G47.33 Obstructive sleep apnea (adult) (pediatric); E06.3 Autoimmune thyroiditis; E66.9 Obesity, unspecified; Z68.41 Body mass index [BMI] 40.0-44.9, adult; Z98.51 Tubal ligation status; Z87.442 Personal history of urinary calculi
CPT/HCPCS: 45385; 45380; 43239; 88305; 88342

== ENCOUNTER → 2023-07-21 10:26 | Outpatient (BNV) | payer MEDICAID, SELFPAY | PROVIDERS: Visit Provider Internal Medicine Gastroenterology | DX: Z12.11 Encounter for screening for malignant neoplasm of colon (principal); K63.5 Polyp of colon; K57.30 Diverticulosis of large intestine without perforation or abscess without bleeding; K64.0 First degree hemorrhoids; K21.00 Gastro-esophageal reflux disease with esophagitis, without bleeding; K29.70 Gastritis, unspecified, without bleeding | CPT/HCPCS: 43239; 45380; 45385 ==

== ENCOUNTER 2023-08-03 11:43 | Outpatient (REF) | payer MEDICAID, SELFPAY | END 2023-08-03 11:44 | disposition home or self-care (01) | LOC: HO.MDS 11:43 | PROVIDERS: Visit Provider Hospitalist | DX: J45.50 Severe persistent asthma, uncomplicated (principal) | CPT/HCPCS: 96372; J2357 ==

== ENCOUNTER 2023-08-17 09:38 | Outpatient (REF) | payer MEDICAID, SELFPAY | END 2023-08-17 09:39 | disposition home or self-care (01) | LOC: HO.MDS 09:38 | PROVIDERS: Visit Provider Hospitalist | DX: J45.50 Severe persistent asthma, uncomplicated (principal) | CPT/HCPCS: 96372; J2357 ==

== ENCOUNTER 2023-08-24 08:34 | Emergency (ER) | payer MEDICAID, SELFPAY ==
[2023-08-24 08:37] VITALS: BP 146/75; PULSE 94; RESP 18; TEMP 36.8; O2SAT 96; BMI 45.7
[2023-08-24 08:59] VITALS: BP 143/63; PULSE 86; RESP 16; TEMP 36.8; O2SAT 97
--- NOTE | 2023-08-24 09:08 | PC.NURSE ---
vss and up to date. pt comes in today d/t rash all over body. pt states she is allergic to plants but has not come in contact w/ any allergens recently. pt has been unsuccessful w/ decreasing rash w/ medication use. erythema/blotchy patches noted all over body. pt verbalizes no pain - just feeling itchy.
--- NOTE | 2023-08-24 09:10 | ED.SKABFB ---
HPI - Skin/Abscess/Foreign Bdy General Chief complaint: Skin/Abscess/Foreign Body Stated complaint: body rash Time Seen by Provider: 08/24/23 09:08 Source: patient, family (daughter), old records reviewed and freelance interpreter/translator Mode of arrival: ambulatory Limitations: no limitations History of Present Illness HPI narrative: 62 year old Citizen [place] speaking female with pmhx significant for asthma, allergic rhinitis, HTN, Fernando's disease, hyperparathyroidism, PAOLA, presents to the ED today for evaluation of pruritic rash to entire body x2 days. States rash began on her hands 2 nights ago while in bed. The next morning awoke with rash to entire body. Denies pain however endorses pruritis. Has been taking Benadryl at home without relief, last dose 5:00 a.m. this morning. Reports receiving allergy testing in the past and was told that she is allergic to plants and animal dander. Denies being around these in the last few days. Denies new detergent, soaps, lotions. Denies chest pain, SOB, difficulty breathing or throat pain/ discomfort. Denies recent tick bites. Daughter reports that patient lives in a longterm home however no other residents have these symptoms. Related Data Home Medications Medication Instructions Recorded Confirmed cyclobenzaprine 10 mg tablet 10 mg PO TID PRN muscle spasm 07/21/20 08/25/23 sennosides 8.6 mg capsule (senna) 17.2 mg PO BEDTIME PRN constipation 07/21/20 08/25/23 triamcinolone acetonide 0.1 % appl topical BID 12/06/21 08/25/23 topical cream clotrimazole 1 % topical cream appl topical 03/11/22 08/25/23 hydrochlorothiazide 25 mg tablet 25 mg PO DAILY 03/11/22 08/25/23 nebulizers 01/23/23 08/25/23 ammonium lactate 12 % topical cream appl topical 02/05/23 08/25/23 clobetasol 0.05 % topical ointment g topical BID 02/05/23 08/25/23 atorvastatin 10 mg tablet 10 mg PO QAM 08/25/23 08/25/23 sertraline 25 mg tablet 25 mg PO QAM 08/25/23 08/25/23 Previous Rx's Medication Instructions Recorded pyridoxine (vitamin B6) 100 mg 100 mg PO DAILY 90 days #90 tabs 12/06/21 tablet compress.stocking,knee,reg,med #2 ea 02/27/22 furosemide 20 mg tablet (Lasix) 20 mg PO DAILY 7 days #7 tabs 02/27/22 calcium citrate 500 mg (2 x 250 mg calcium) PO BID 04/17/22 #120 tabs ibuprofen 800 mg tablet 800 mg PO Q8H PRN pain #14 tabs 09/26/22 levothyroxine 137 mcg tablet 137 mcg PO DAILY 90 days #90 tabs 10/21/22 omalizumab 150 mg/mL subcutaneous 150 mg subcut Q2W 28 days #2 mL 11/07/22 syringe (Xolair) omalizumab 75 mg/0.5 mL 75 mg (0.5 mL) subcut Q2W 28 days 11/07/22 subcutaneous syringe (Xolair) #1 mL hydroxyzine HCl 25 mg tablet 25 mg PO TID PRN itching 7 days 12/22/22 #21 tabs naproxen 500 mg tablet 500 mg PO BID 30 days #60 tabs 12/24/22 albuterol sulfate 90 mcg/actuation 2 puff inhalation QID PRN 01/23/23 aerosol inhaler (Ventolin HFA) shortness of breath or wheezing 30 days #8.5 grams epinephrine 0.3 mg/0.3 mL 0.3 mg (0.3 mL) IM Q10M PRN 01/23/23 injection, auto-injector (EpiPen anaphylaxis 30 days #2 ea 2-Carlos Eduardo) fluticasone fur. 200 mcg-umeclid 1 ea inhalation DAILY #60 ea 01/23/23 62.5 mcg-vilant 25 mcg inhalat.powder (Trelegy Ellipta) fluticasone propionate 50 2 spray intranasal DAILY #16 grams 01/23/23 mcg/actuation nasal spray,suspension loratadine 10 mg tablet 10 mg PO DAILY #30 tabs 01/23/23 montelukast 10 mg tablet 10 mg PO QPM 30 days #30 tabs 01/23/23 cholecalciferol (vitamin D3) 50 50 mcg PO DAILY #90 caps 06/29/23 mcg (2,000 unit) capsule (Vitamin D3) diphenhydramine HCl 25 mg capsule 50 mg (2 x 25 mg) PO TID PRN 07/01/23 (Benadryl) itching #20 caps albuterol sulfate 2.5 mg/3 mL 2.5 mg (3 mL) inhalation Q4-6H PRN 07/22/23 (0.083 %) solution for nebulization Shortness Of Breath Or Wheezing #180 mL diphenhydramine HCl 50 mg tablet 50 mg PO Q8H PRN itching #20 tabs 08/24/23 (Benadryl Allergy) prednisone 20 mg tablet 40 mg (2 x 20 mg) PO DAILY 4 days 08/24/23 #8 tabs Allergies Allergy/AdvReac Type Severity Reaction Status Date / Time animal dander Allergy Rash Verified 08/25/23 09:02 tree and shrub pollen Allergy Rash Verified 08/25/23 09:02 Review of Systems Review of Systems: Constitutional: No fever, chills, fatigue, night sweats, weight changes ENT/Mouth: No ear pain, hearing loss, nasal congestion, sinus pain, rhinorrhea, sore throat Eyes: No eye pain, swelling, redness, vision changes, discharge Cardio: No chest pain, palpitations, CANTRELL, orthopnea, peripheral edema Pulm: No SOB, cough, sputum, wheezing, dyspnea, hemoptysis GI: No nausea, vomiting, hematemesis, abdominal pain, diarrhea, constipation, hematochezia, melena : No irregular bleeding, dysuria, frequency, urgency, hesitancy, hematuria MSK: No back pain, neck pain, joint pain, myalgias Skin: No lesions, +rash Neuro: No weakness, numbness, paresthesias, LOC, dizziness, headache All other systems reviewed and are negative. [facility] Past Medical History Attestation statement: The following information was validated with the patient. Source: old records reviewed and nursing notes reviewed Medical History Renal calculi Limb swelling Sleep apnea Hx of renal calculi Pulmonary nodules Chronic allergic rhinitis Asthma Hypertension Non-toxic multinodular goiter Osteopenia Fernando's disease Hypothyroidism History of primary hyperparathyroidism Surgical History Status post fine needle aspiration Hx of cystoscopy Hx of lithotripsy History of surgery on arm Hx of parathyroidectomy H/O partial thyroidectomy Hx of tubal ligation Family History Family History Maternal Grandmother Diabetes Father No problems noted. Mother Hypertension Asthma Social History Social History Are you a primary home health care physician to a significant other at home: No Do you presently have visiting nurse or other home services: No Alcohol intake: never Patient Tobacco Use Status: Never used Tobacco Current occupational status: disabled Current occupation: right hand dominant Physical Exam Vital Signs: Vital Signs: Last Vital Signs Temp 98.3 F 08/24/23 08:59 Pulse 84 08/24/23 10:01 Resp 16 08/24/23 10:01 BP 127/71 08/24/23 10:01 Pulse Ox 95 08/24/23 10:01 O2 Del Method Room Air 08/24/23 10:01 BMI result Body Mass Index 45.7 Vital signs stable Const: General: cooperative, comfortable, no acute distress, alert and awake Orientation/consciousness: patient oriented x3 Limitations: no limitations HEENT: Other: + Posterior oropharynx without erythema or edema. Uvula is midline. Controlling secretions speaking complete sentences. Normal mucous membranes. Head: Yes normal to inspection Ears: hearing grossly normal bilaterally General nose exam: Normal external nose present Mouth: Normal oral and palatal mucosa present and moist mucous membranes Eyes: General: appearance normal, both eyes and all related structures Conjunctivae: conjunctivae normal Sclerae: sclerae normal Pupils: Equal, round and reactive pupils present EOM: EOMs intact bilaterally Neck: Neck: Yes normal visual inspection and Yes no lymphadenopathy Resp: Effort & Inspection: normal respiratory effort Auscultation: clear to auscultation bilaterally Cardio: Rate: regular rate Rhythm: regular rhythm Peripheral pulses: radial pulses present and dorsalis pedis present GI: Palpation (GI): Soft to palpation and nontender Skin: Other: Refer to photos below. + Entire body is noted to have a scattered, flat, macular erythematous rash. Nontender. No flaking, scaling, vesicles, or sloughing. No mucous membrane involvement. No involvement of the palms or soles. No involvement of web spaces. There is no pitting edema of the lower extremities. LUE: RUE: RLE: LLE: Neuro: General: patient oriented x3, gait normal and moves all extremities Cranial nerves: Yes CN's II-XII intact bilaterally and Yes Equal, round and reactive pupils present Extrem: Other: Refer to photos above. General: Yes normal to inspection, Yes full ROM, Yes capillary refill normal, Yes no joint enlargement and Yes no clubbing, cyanosis or edema Course Course Course Narrative: 1038-- On re-evaluation, patient's rash has improved with Pepcid, Benadryl, Solu-Medrol > This is likely an allergic dermatitis. Her vital signs are still stable. Patient has been taking Banophen at home without relief > advised her to stop taking this. I will send her home with 50 mg of Benadryl to take instead. Plan to send 4 day course of prednisone that she can start tomorrow. Will provide her with referral to a card cutter for follow-up. Discussed strict return precautions. All questions answered at this time. Patient is agreeable disposition and stable for discharge. Medications Administered Discontinued Medications Generic Name Dose Route Start Last Admin Trade Name Freq PRN Reason Stop Dose Admin Diphenhydramine HCl 50 mg 08/24/23 09:30 08/24/23 09:43 Diphenhydramine Hcl 50 Mg/Ml Vial IM 08/24/23 09:31 50 mg ONCE ONE Administration Famotidine 20 mg 08/24/23 09:30 08/24/23 09:43 Famotidine 20 Mg Tablet PO 08/24/23 09:31 20 mg ONCE ONE Administration Methylprednisolone Sodium Succinate 60 mg 08/24/23 09:30 08/24/23 09:43 Methylprednisolone Sod Succ 125 Mg/2 Ml Vial IM 08/24/23 09:31 60 mg ONCE ONE Administration Medical Decision Making Medical Decision Making [facility] Narrative: 62 year old Citizen [place] speaking female with pmhx significant for asthma, allergic rhinitis, HTN, Frenando's disease, hyperparathyroidism, PAOLA, presents to the ED today for evaluation of pruritic rash to entire body x2 days. VSS, afebrile. On exam the entire body is noted to have a scattered, flat, macular erythematous rash. Nontender. No flaking, scaling, vesicles. no sloughing. No mucous membrane involvement. No involvement of the palms or soles. No involvement of web spaces. There is no pitting edema of the lower extremities. Clinical concern for allergic dermatitis, contact dermatitis, eczema, tick-borne illness, cellulitis. Unlikely a is Lyme, SJS, TEN. Plan at this time is administration of benadryl + pepcid + solumedrol and re-evaluation. Differential Diagnosis Differential Diagnoses: The differential diagnosis associated with the presentation includes As above. Admission/Observation Not indicated. Independent Historian Clinical information obtained from an independent historian. History obtained from or confirmed by: Other (daughter) External Record Review External record reviewed: Inpatient record, Office record, Outpatient record, Prior outpatient labs, Prior outpatient radiology, Primary care record and Outside ED record Prescription Management I considered prescription management with: Other (steroid, antihistamine ) Chronic Conditions Patient?s care impacted by: Other (asthma, allergic rhinitis) Critical Care Time Critical Care Time Critical Care Time: No Discharge Plan Discharge Clinical Impression: Allergic dermatitis Patient Disposition: Home, Self-Care Instructions: Acute Rash (ED), General Allergic Reaction (ED), Dermatitis (ED) Additional Instructions: Your rash improved today after receiving Benadryl and steroids. Your symptoms are likely due to an allergic dermatitis. Benadryl has been sent to your pharmacy. A 4 day course of prednisone has been sent to your pharmacy. Please take this over the next 4 days. You already received a dose of steroids in the ED today. Return to the emergency department if your symptoms persist or worsen. In the case of an emergency call 911. Please follow-up with your primary care provider regarding you visit today. You have also been provided with a referral to a card cutter for follow-up. Please call him to make a an appointment. They will not call you. Pradhan sarpullido mejor? hoy despu?s de recibir Benadryl y esteroides. Es probable que aisha s?ntomas se deban a danielle dermatitis al?rgica. Benadryl medina sido enviado a pradhan farmacia. Le hubbard enviado a pradhan farmacia un tratamiento de prednisona de 4 d?as. T?kothari minerva los pr?ximos 4 d?as. Ya recibi? danielle dosis de esteroides en el servicio de urgencias hoy. Regrese al departamento de emergencias si aisha s?ntomas persisten o empeoran. En rusty de emergencia llame al 911. Teena un seguimiento con pradhan proveedor de atenci?n primaria sobre pradhan visita de hoy. Tambi?n se le meidna proporcionado danielle derivaci?n a un dermat?logo para seguimiento. Por favor ll?kothari para programar danielle isaac. No te llamar?n. Prescriptions: New Benadryl Allergy 50 mg tablet 50 mg PO Q8H PRN (Reason: itching) Qty: 20 0RF prednisone 20 mg tablet 40 mg PO DAILY 4 Days Qty: 8 0RF No Action calcium citrate 250 mg calcium tablet 500 mg PO BID Qty: 120 6RF levothyroxine 137 mcg tablet 137 mcg PO DAILY 90 Days Qty: 90 5RF Xolair 75 mg/0.5 mL syringe 75 mg subcut Q2W 28 Days Qty: 1 11RF Xolair 150 mg/mL syringe 150 mg subcut Q2W 28 Days Qty: 2 11RF cholecalciferol (vitamin D3) [Vitamin D3] 50 mcg (2,000 unit) capsule 50 mcg PO DAILY Qty: 90 1RF albuterol sulfate 2.5 mg /3 mL (0.083 %) solution for nebulization 2.5 mg inhalation Q4-6H PRN (Reason: Shortness Of Breath Or Wheezing) Qty: 180 11RF ibuprofen 800 mg tablet 800 mg PO Q8H PRN (Reason: pain) Qty: 14 0RF hydroxyzine HCl 25 mg tablet 25 mg PO TID PRN (Reason: itching) 7 Days Qty: 21 0RF diphenhydramine HCl [Benadryl] 25 mg capsule 50 mg PO TID PRN (Reason: itching) Qty: 20 0RF senna 8.6 mg capsule 17.2 mg PO BEDTIME PRN (Reason: constipation) cyclobenzaprine 10 mg tablet 10 mg PO TID PRN (Reason: muscle spasm) (DME) nebulizers Misc See Rx Instructions .Route Rx Instructions: As directed epinephrine [EpiPen 2-Carlos Eduardo] 0.3 mg/0.3 mL auto-injector 0.3 mg IM Q10M PRN (Reason: anaphylaxis) 30 Days Qty: 2 6RF Rx Instructions: for 2 doses albuterol sulfate [Ventolin HFA] 90 mcg/actuation HFA aerosol inhaler 2 puff inhalation QID PRN (Reason: shortness of breath or wheezing) 30 Days Qty: 8.5 11RF fluticasone propionate 50 mcg/actuation spray,suspension 2 spray intranasal DAILY Qty: 16 11RF Trelegy Ellipta 200-62.5-25 mcg blister with device 1 ea inhalation DAILY Qty: 60 11RF loratadine 10 mg tablet 10 mg PO DAILY Qty: 30 11RF montelukast 10 mg tablet 10 mg PO QPM 30 Days Qty: 30 11RF naproxen 500 mg tablet 500 mg PO BID 30 Days Qty: 60 3RF clobetasol 0.05 % ointment topical BID ammonium lactate 12 % cream topical (DME) compress.stocking,knee,reg,med Misc See Rx Instructions .Route Qty: 2 0RF Rx Instructions: 15-20 cm furosemide [Lasix] 20 mg tablet 20 mg PO DAILY 7 Days Qty: 7 0RF triamcinolone acetonide 0.1 % cream topical BID pyridoxine (vitamin B6) 100 mg tablet 100 mg PO DAILY 90 Days Qty: 90 1RF clotrimazole 1 % cream topical hydrochlorothiazide 25 mg tablet 25 mg PO DAILY sertraline 25 mg tablet 25 mg PO QAM atorvastatin 10 mg tablet 10 mg PO QAM Referrals: Amanda Jaffe PA-C [Physician Zoning Assistant] - 5 days [facility] [Primary Care Provider] - Interventions: ED Discharge Assessment Last Done: 08/24/23 11:04 Discharge Date/Time: 08/24/23 11:07 Print Language: Citizen [place]
[2023-08-24] MEDS: diphenhydrAMINE HCL 50 MG/ML VIAL IM (09:43)
[2023-08-24] MEDS: Famotidine 20 MG TABLET PO (09:43)
[2023-08-24] MEDS: methylPREDNISolone Sod Succ 125 MG/2 ML VIAL 60 MG IM (09:43)
--- NOTE | 2023-08-24 09:48 | PC.NURSE ---
medication administered per provider order. pt resting comfortably w/ daughter bedside.
[2023-08-24 10:01] VITALS: BP 127/71; PULSE 84; RESP 16; O2SAT 95
== END 2023-08-24 11:07 | disposition home or self-care (01) ==
PROVIDERS: Emergency Provider Emergency Medicine
DX: L29.9 Pruritus, unspecified (principal); L50.0 Allergic urticaria; I10 Essential (primary) hypertension; Z79.899 Other long term (current) drug therapy
CPT/HCPCS: 96372; 99284; J1200; J2930

== ENCOUNTER 2023-08-25 08:32 | Outpatient (REF) | payer MEDICAID, SELFPAY ==
[2023-08-25 16:17] LABS: Urine Cytology See Pathology rpt
== END 2023-08-25 08:33 | disposition home or self-care (01) ==
LOC: HO.LNP 08:32
PROVIDERS: Visit Provider Nurse Practitioner Family
DX: R31.29 Other microscopic hematuria (principal); Z87.442 Personal history of urinary calculi; Z79.899 Other long term (current) drug therapy
CPT/HCPCS: 81003; 88112; 99212

== ENCOUNTER 2023-08-25 08:32 | Outpatient (AMB) | payer MEDICAID, SELFPAY ==
--- NOTE | 2023-08-25 08:35 | A.OFFVIS_ITS ---
Intake Intake Visit Reasons: 6m follow up/US(set) Intake Note: Patient is present for follow up kidney stone/ultrasound (imaging 06/12/23) Urology Medications: Vitamin B6 Blood Thinner: none Sole Painter Required: Yes Sole Painter Name: Heidi KyesIBIS Accompanied by: Self / Same As Patient Allergies animal dander Allergy (Verified 08/25/23 09:02) Rash tree and shrub pollen Allergy (Verified 08/25/23 09:02) Rash Medication List - Last Reconciled 08/25/23 by VIPUL Huitron-ALIRIO albuterol sulfate 90 mcg/actuation (Ventolin HFA) 2 puffs inhalation QID PRN 30 days albuterol sulfate 2.5 mg (3 mL) inhalation Q4-6H PRN ammonium lactate 12% appl topical atorvastatin 10 mg PO QAM calcium citrate 500 mg (2 x 250 mg calcium) PO BID cholecalciferol (vitamin D3) (Vitamin D3) 50 mcg PO DAILY clobetasol 0.05% grams topical BID clotrimazole 1% appl topical compress.stocking,knee,reg,med 15-20 cm cyclobenzaprine 10 mg PO TID PRN diphenhydramine HCl (Benadryl) 50 mg (2 x 25 mg) PO TID PRN diphenhydramine HCl (Benadryl Allergy) 50 mg PO Q8H PRN epinephrine (EpiPen 2-Carlos Eduardo) 0.3 mg (0.3 mL) IM Q10M PRN 30 days fluticasone propionate 50 mcg/actuation 2 sprays intranasal DAILY smwrurcqtkw-tmnzugzgi-sixtnjhn 200-62.5-25 mcg (Trelegy Ellipta) 1 ea inhalation DAILY furosemide (Lasix) 20 mg PO DAILY 7 days hydrochlorothiazide 25 mg PO DAILY hydroxyzine HCl 25 mg PO TID PRN 7 days ibuprofen 800 mg PO Q8H PRN levothyroxine 137 mcg PO DAILY 90 days loratadine 10 mg PO DAILY montelukast 10 mg PO QPM 30 days naproxen 500 mg PO BID 30 days nebulizers As directed omalizumab (Xolair) 75 mg (0.5 mL) subcut Q2W 28 days omalizumab (Xolair) 150 mg subcut Q2W 28 days prednisone 40 mg (2 x 20 mg) PO DAILY 4 days pyridoxine (vitamin B6) 100 mg PO DAILY 90 days sennosides (senna) 17.2 mg PO BEDTIME PRN sertraline 25 mg PO QAM triamcinolone acetonide 0.1% appl topical BID HPI HPI Comments History of Present Illness Details Diamond is a pleasant 62-year-old Brazilian-speaking female patient of . She has a past medical history of nephrolithiasis, sleep apnea, pulmonary nodules, asthma, hypertension, osteopenia, and Fernando's disease. She presents to the office for follow-up regarding her nephrolithiasis. Recent renal imaging results reviewed with the patient today. Right kidney with no calculi, and or hydronephrosis. Left kidney with no lesions no hydronephrosis. There is a 4 mm nonobstructing intrarenal calculus in the lower pole. When asked patient does report intermittent episodes of right-sided flank pain. When asked patient reports to be attempting to drink adequate amount of fluid/water daily. She reports compliance with vitamin B6. When asked she denies any urinary issues or concerns at this time. She denies urinary urgency, urinary frequency, incontinence, nocturia, hematuria, changes to urinary stream, fever, and or chills. In office urinalysis results reviewed with the patient today. Discussed surveillance monitoring versus surgical intervention. Discussed risks and benefits of surveillance monitoring versus surgical intervention. She otherwise offers no other issues or concerns at this time. [facility] Medical History Renal calculi Limb swelling Sleep apnea Hx of renal calculi Pulmonary nodules Chronic allergic rhinitis Asthma Hypertension Non-toxic multinodular goiter Osteopenia Fernando's disease Hypothyroidism History of primary hyperparathyroidism Surgical History Status post fine needle aspiration Hx of cystoscopy Hx of lithotripsy History of surgery on arm Hx of parathyroidectomy H/O partial thyroidectomy Hx of tubal ligation Family History Maternal Grandmother Diabetes Father No problems noted. Mother Hypertension Asthma Social History Are you a primary healthcare administration internship to a significant other at home: No Do you presently have visiting nurse or other home services: No Alcohol intake: never Patient Tobacco Use Status: Never used Tobacco Current occupational status: disabled Current occupation: right hand dominant Review of Systems Const Reports no additional complaints Eyes Reports no additional complaints ENT Reports no additional complaints Card Reports as per HPI Resp Reports as per HPI GI Reports no additional complaints Reports as per HPI Musc Reports as per HPI Neuro Reports no additional complaints Psych Reports no additional complaints Endo Reports as per HPI Cheko/Lymph Reports no additional complaints Aller/Immun Reports no additional complaints Physical Exam Const General: cooperative, healthy appearing, comfortable, no acute distress, well developed, alert and awake Nutritional Appearance: overweight Orientation/consciousness: patient oriented x3 Limitations: no limitations HEENT Head: Yes normal to inspection, Yes normocephalic and Yes atraumatic Ears: hearing grossly normal bilaterally Eyes General: appearance normal, both eyes and all related structures Neck Neck: Yes normal visual inspection and Yes trachea midline Chest Chest palpation & inspection: normal inspection of the chest Resp Effort & Inspection: normal respiratory effort and able to speak in complete sentences Cardio Rate: regular rate GI Inspection: Yes normal to inspection General: Yes no CVA tenderness Back/Spine/Pelvis Back: no CVA tenderness Skin General skin exam: no rashes or lesions noted Neuro General: patient oriented x3 Extrem General: Yes normal to inspection Psych Appearance: grossly normal and well kempt Mental Status: mental status grossly normal Speech and movement: Normal speech and movement present and Clear speech present Affect: normal affect Attitude: cooperative Thought process: Normal thought process present Thought content: Normal thought content present Insight: Fair insight present (Psych) Judgement: Fair judgement present (Psych) Results AMB Urinalysis, Automated UA Leukoctes 0 Vashti/uL Last Edit by SRE [place] - 2 Beti on 08/25/23 08:48 UA Nitrite Negative Last Edit by Placecastjake on 08/25/23 08:48 UA Urobilinogen 0.2 mg/dL Last Edit by Book[employer]est on 08/25/23 08:48 UA Protein 0 mg/dL Last Edit by SRE [place] - 2 Beti on 08/25/23 08:48 UA pH 6.0 Last Edit by SRE [place] - 2 Beti on 08/25/23 08:48 UA Blood 200 Norberto/uL Last Edit by SRE [place] - 2 Beti on 08/25/23 08:48 UA Specific [place] 1.015 Last Edit by Krupa Buijake on 08/25/23 08:48 UA Ketone Negative Last Edit by Krupa Buijake on 08/25/23 08:48 UA Bilirubin 0 mg/dL Last Edit by Florentinomary janegina Buijake on 08/25/23 08:48 UA Glucose 0 mg/dL Last Edit by Kyagina Ramyajake on 08/25/23 08:48 Results Reviewed Results Reviewed: Laboratory Last Values Urine pH (Auto) 6.0 08/25/23 08:42 Specific [place] (Auto) 1.015 08/25/23 08:42 Urine Protein (Auto) 0 mg/dL 08/25/23 08:42 Glucose (UA)(Auto) 0 mg/dL 08/25/23 08:42 Urine Ketones (Auto) Negative 08/25/23 08:42 Urine Blood (Auto) 200 Norberto/uL 08/25/23 08:42 Urine Nitrite (Auto) Negative 08/25/23 08:42 Urine Bilirubin (Auto) 0 mg/dL 08/25/23 08:42 Urine Urobilinogen (Auto) 0.2 mg/dL 08/25/23 08:42 Leukocyte Esterase (Auto) 0 Vashti/uL 08/25/23 08:42 Date of Service: 06/12/23 EXAMINATION: US RETROPERITONEAL LIMITED (RENAL ONLY) FINDINGS: RIGHT KIDNEY: 11.8 x 4.9 x 6.0 cm (SAG x AP x TRV). The kidney is normal in size and echogenicity. There is focal renal cortical scarring in the lateral mid to lower pole which appears unchanged. Renal cortical thickness is otherwise normal. No calculi or focal parenchymal lesions. No hydronephrosis. No intrarenal calculi are demonstrated. LEFT KIDNEY: 11.1 x 5.8 x 5.9 cm (SAG x AP x TRV). The kidney is normal in size, contour, and echogenicity. Renal cortical thickness is normal. No focal parenchymal lesions or hydronephrosis. There is a 4 mm nonobstructing intrarenal calculus in the lower pole. ADDITIONAL FINDINGS: There is a lobulated cyst in the right lobe liver measuring 2.5 x 2.3 x 1.9 cm. IMPRESSION: Stable right renal cortical scarring in the mid to lower pole. Nonobstructive 4 mm left lower pole intrarenal calculus. No hydronephrosis. Assessment & Plan Assessment & Plan (1) Renal calculi: Code(s): N20.0 - Calculus of kidney (2) Microhematuria: Code(s): R31.29 - Other microscopic hematuria Plan In office urinalysis results reviewed with the patient today; as noted above. Recent renal ultrasound results reviewed with the patient today; as noted above. Discussed surveillance monitoring versus surgical intervention; discussed risks and benefits of these interventions at length. Continue vitamin B6 daily. Continue drinking plenty of water daily. Continue adding 1 oz of lemon juice to water daily. Patient reports to be happy with current voiding parameters. Will obtain CT KUB in 3 months. Follow-up in 3 months with imaging to be completed prior; or sooner with any issues, concerns, and or questions. Orders: Orders CT kidney stone 3 Months N20.0 - Calculus of kidney Urine Cytology Today R31.29 - Other microscopic hematuria AMB Urinalysis Automated Today Z13.9 - Encounter for screening, unspecified Patient Instructions: The patient had an opportunity to ask questions regarding the treatment plan. All questions were answered. Physical exam, labs, and imaging were discussed and reviewed in detail. As well as risks, benefits, and discussion of treatment choices. No major barriers to understanding were identified. The patient expressed understanding and agreement with the above treatment plan. The patient was made aware they should contact our office by phone for worsening of their current condition, the appearance of new symptoms, or with any questions or concerns. Compliance is encouraged with any medications and follow up testing that is ordered. It is a privilege to be allowed the opportunity to participate in? your urological care.? Again, if you have any questions or concerns If you have any questions or concerns please do not hesitate to contact me. The office is [phone]. This note is constructed using voice recognition software. While every effort has been made to ensure accuracy live truck technician errors may have been included. Yours sincerely, TOM Huitron Coding Level of Care Code Est Pt Level 3 (32030) Diagnoses Renal calculi N20.0 Microhematuria R31.29
== END 2023-08-25 09:21 | disposition home or self-care (01) ==
PROVIDERS: Visit Provider Nurse Practitioner Family
DX: N20.0 Calculus of kidney (principal); R31.29 Other microscopic hematuria
CPT/HCPCS: 99213

== ENCOUNTER 2023-08-28 08:56 | Outpatient (REF) | payer MEDICAID, SELFPAY ==
[2023-08-28 11:18] LABS: MANUAL DIFF FLAG NO
[2023-08-28 11:40] LABS: Basophils Percent Auto 0.4 % (0-2); Eosinophils Percent Auto 0.4 % (0-4); Hematocrit 36.5 % (37.0-47.0); Hemoglobin 12.3 g/dl (12.0-16.0); Imm Gran Abs Auto 0.04 X10*3/uL (0.00-0.03); Imm Gran Pct Auto 0.5 % (0.0-0.4); Lymphocytes Absolute Auto 3.4 X10*3/uL (1.2-4.9); Lymphocytes Percent Auto 40.1 % (20-40); Mean Corpuscular HGB Conc 33.7 g/dl (31.0-35.0); Mean Corpuscular Hemoglobin 28.2 pg (27.0-33.0); Mean Corpuscular Volume 83.7 fL (80.0-98.0); Mean Platelet Volume 10.1 fL (9.4-12.3); Monocytes Absolute Auto 0.5 X10*3/uL (0.1-1.2); Monocytes Percent Auto 5.8 % (2-11); Neutrophils Absolute Auto 4.5 x10*3/uL (2.0-8.3); Neutrophils Percent Auto 52.8 % (45-73); Platelet Count 389 X10*3/uL (160-400); Red Blood Count 4.36 X10*6/uL (4.20-5.50); Red Cell Distribution Width 12.2 % (11.0-16.0); White Blood Count 8.4 X10*3/uL (4.8-10.8)
[2023-08-28 11:55] LABS: Estimated Average Glucose 134 mg/dL; Hemoglobin A1c % 6.3 % (<6.0)
[2023-08-28 12:19] LABS: Alanine Aminotransferase 24 U/L (0-31); Alkaline Phosphatase 92 U/L (39-117); Anion Gap 13 (12-20); Aspartate Amino Transferase 23 U/L (5-31); Bilirubin Total 0.3 mg/dL (0.0-1.0); Blood Urea Nitrogen 12 mg/dL (9-16); Calcium 9.1 mg/dL (8.4-10.2); Carbon Dioxide 29 mmol/L (22-29); Chloride 104 mmol/L (96-108); Cholesterol 146 mg/dL (<200); Estimated Glomerular Filt Rate > 60; Glucose Random 98 mg/dL (60-115); HDL Cholesterol 54 mg/dL (>40); LDL Cholesterol Calculated 72 mg/dL (<100); Potassium 2.9 mmol/L (3.3-5.1); Sodium 143 mmol/L (135-145); Total Protein 7.1 g/dL (6.5-8.0); Triglycerides 100 mg/dL (<150)
[2023-08-28 12:34] LABS: Vitamin B12 266 pg/mL (200-900)
[2023-08-28 12:58] LABS: T4 Thyroxine 11.3 ug/dL (4.5-12.0); Thyroid Stimulating Hormone 3.26 uIU/mL (0.32-4.0); Vitamin D 25-OH Total 58.1 ng/mL (>30)
[2023-08-28 13:14] LABS: CT PCR NOT DETECTED (Not Detect.); NG PCR NOT DETECTED (Not Detect.)
[2023-08-29 03:39] LABS: Syphilis Screen Nonreactive (Nonreactive)
[2023-08-29 04:04] LABS: HBS Num1 0.12 mIU/mL (0-7.99); HBc Num1 0.12 S/CO (0.00-0.79); HBsAGNum1 0.28 S/CO (0.00-0.99); HIV AB/AG Nonreactive (Nonreactive); HIV Num 1 0.08 S/CO (0.00-0.99); Hepatitis B Core Antibody Nonreactive (Nonreactive); Hepatitis B Surface Antigen Negative (Negative); ~HepC Num1 0.04 S/CO (0.00-0.79); ~Hepatitis B Surface Antibody NONREACTIVE (Nonreactive); ~Hepatitis C Antibody Nonreactive (Nonreactive)
== END 2023-08-28 08:57 | disposition home or self-care (01) ==
LOC: HO.HHCL 08:56
PROVIDERS: Visit Provider Student in an Organized Health Care Education/Training Program
DX: Z00.00 Encounter for general adult medical examination without abnormal findings (principal); Z11.4 Encounter for screening for human immunodeficiency virus [HIV]; Z20.2 Contact with and (suspected) exposure to infections with a predominantly sexual mode of transmission
CPT/HCPCS: 0353U; 80053; 80061; 82306; 82607; 82746; 83036; 84436; 84443; 85025; 86704; 86706; 86780; 86803; 87340; 87389

== ENCOUNTER 2023-09-02 10:31 | Outpatient (REF) | payer MEDICAID, SELFPAY ==
[2023-09-02 12:24] LABS: Creatinine Urine 75.25 mg/dL; Microalbum/Creatinine Ratio Ur 10.6 ug/mg cr (<30)
== END 2023-09-02 10:32 | disposition home or self-care (01) ==
LOC: HO.HHCL 10:31
PROVIDERS: Visit Provider Student in an Organized Health Care Education/Training Program
DX: Z00.00 Encounter for general adult medical examination without abnormal findings (principal)
CPT/HCPCS: 82043; 82570

== ENCOUNTER 2023-09-04 08:11 | Outpatient (REF) | payer MEDICAID, SELFPAY ==
[2023-09-04 10:00] LABS: Influenza A PCR NEGATIVE (Negative); Influenza B PCR NEGATIVE (Negative); Resp Syncy Virus RNA Qual PCR NEGATIVE (Negative); SARS COV2 PCR INHOUSE POSITIVE (Negative)
== END 2023-09-04 08:12 | disposition home or self-care (01) ==
LOC: HO.MDS 08:11
PROVIDERS: Visit Provider Hospitalist
DX: J45.50 Severe persistent asthma, uncomplicated (principal); R91.8 Other nonspecific abnormal finding of lung field; Z11.52 Encounter for screening for COVID-19
CPT/HCPCS: 0241U; 96372; 99212; J2357

== ENCOUNTER 2023-09-04 08:34 | Outpatient (AMB) | payer MEDICAID, SELFPAY ==
[2023-09-04 08:46] VITALS: BP 128/70; PULSE 89; O2SAT 97; BMI 43.9
--- NOTE | 2023-09-04 08:46 | A.OFFVIS_ITS ---
Intake Vital Signs 09/04/23 08:46 Height 5 ft 2 in Weight 240 lb BMI 43.9 BP 128/70 Blood Pressure Location Lt brachial Position Sitting Pulse 89 Pulse Source Pulse Oximeter Pulse Oximetry (%) 97 Oxygen Delivery Method Room Air Intake Visit Reasons: Asthma Tattoo Technician Required: No Allergies animal dander Allergy (Verified 09/04/23 08:50) Rash tree and shrub pollen Allergy (Verified 09/04/23 08:50) Rash HPI HPI Comments History of Present Illness Details The patient is a 62-year-old woman with a known history of asthma since she was a teenager. She states she has been on multiple respiratory m edications. Ross few months she has been more short of breath. She has a hard time going up a flight of stairs. She is also having issues because [place] smoking her apartment complex. Also her daughter smoking. All the fumes and irritants are bothering her asthma. She is having more frequent exacerbations which she needs to use her nebulizer. She has been using her rescue inhaler at least on a daily basis. She continues with Spiriva and Advair. She has also been on singular. She states that she has never had allergy testing. On further questioning she does have daytime drowsiness. Her [place] score is elevated 10/11. She did have a sleep study in the past demonstrated she has sleep apnea. She did try the CPAP but she could not tolerated. Explained to her the importance of using CPAP if she has underlying sleep apnea. At this point will focus on improving her respiratory status then we have to revisit the whole sleep apnea issue. She also had a CT scan of the chest that we personally reviewed back in 2018. She did have evidence of granulomas. This is likely from a previous infection. 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 09/26/2022 the patient is here for pulmon francisca follow-up visit. She is complaining of multiple constitutional complaints. She is having some headaches and some chest tightness. She feels her asthma is active. Having significant wheezing. Moderate severity. She is using rescue inhaler with partial resolution of the symptoms. She still has the issue with the cockroaches in her house. She does have significant chest tightness when she is seen the past. The patient did have allergy testing done demonstrating positive allergies to her throat just on the high concentration. The patient also has significant allergies to dust mites and also environmental allergens. The patient is already maxed out on respiratory therapy with Trelegy. She does have wheezing on examination. Based on her elevated IgE and allergy testing the patient does have allergic asthma. Will go ahead and start the process to start her on Xolair monoclonal antibody for IgE. This will help her symptoms and hopefully decrease her exacerbations. In the meantime for wheezing I will give a prescription for prednisone that she will take if her symptoms get worse. The patient also complains of headaches and chills. She also has a slight sore throat. Denies any exposure to anybody with COVID-19 or flu. Although she is not sure. Will go ahead and swab her today for the virus syndromes and will let her know the results. The patient will follow-up in 3-4 months 01/23/2023 the patient is here for a [facility] follow-[facility] visit. She is feeling better. Still having some sinus pressure. The patient has been using the Trelegy inhaler. In addition to this the patient did start the these are injections with good effect. She had 1 bout of lower extremity edema with an allergic reaction. Although that settled. I do not believe that was from the Xolair. The patient does have significant allergies in the Xolair should help but does allergy reactions. In the meantime the patient does not have an EpiPen. We did instruct her how to use 1 effectively and did provide her an EpiPen for her to use in case of any emergencies. The patient will follow-up in 6 months or sooner if she develops any other issues. 09/04/2023 the patient is here for [facility] follow-up visit. She has been complaining of worsening respiratory symptoms. She has been sick now for about 3 days. She went to Urgent Care yesterday. Denies any fevers. She has had some chills and she has had worsening congested cough. She went to the urgent care and she was given prednisone. The patient is not feeling any better. We did another swab today with flu RSV and COVID. The patient also will start azithromycin. Her exam is symmetrical so therefore will hold off on any imaging studies. If the patient is no better by next week she can always come in for chest x-ray. In the meantime she will continue with all her respiratory therapy in Xolair that has been affecting beneficial. If her swab is positive for either RSV COVID or the flow I will call her to let you know and treat her appropriately. [facility] Medical History Renal calculi Limb swelling Sleep apnea Hx of renal calculi Pulmonary nodules Chronic allergic rhinitis Asthma Hypertension Non-toxic multinodular goiter Osteopenia Fernando's disease Hypothyroidism History of primary hyperparathyroidism Surgical History Status post fine needle aspiration Hx of cystoscopy Hx of lithotripsy History of surgery on arm Hx of parathyroidectomy H/O partial thyroidectomy Hx of tubal ligation Family History Maternal Grandmother Diabetes Father No problems noted. Mother Hypertension Asthma Social History Are you a primary healthcare analyst to a significant other at home: No Do you presently have visiting nurse or other home services: No Alcohol intake: never Patient Tobacco Use Status: Never used Tobacco Current occupational status: disabled Current occupation: right hand dominant Review of Systems Const Denies night sweats, Reports snoring and Reports weight gain ENT Denies change in voice, Denies lip swelling, Denies mouth pain, Reports nasal congestion, Reports nasal discharge, Reports sore throat and Denies tongue swelling Card Denies chest pain, Reports leg edema and Reports dyspnea on exertion Resp Denies chest congestion, Reports cough, Denies hemoptysis, Reports dyspnea on exertion, Reports snoring and Reports wheezing GI Denies abdominal pain Musc Denies no additional complaints Neuro Denies Neuro-related abnormal movements Psych Denies no additional complaints Cheko/Lymph Denies easy bleeding and Denies lymphadenopathy Aller/Immun Denies lip swelling, Denies tongue swelling and Reports wheezing Physical Exam Const General: cooperative, comfortable and no acute distress Orientation/consciousness: patient oriented x3 HEENT Head: Yes normal to inspection Neck Neck: Yes normal visual inspection and Yes no JVD Carotids: normal carotid upstroke Chest Chest palpation & inspection: normal inspection of the chest Resp Effort & Inspection: able to speak in complete sentences Auscultation: no crackles, no rales, no rhonchi, no wheezes and diminished lung sounds Cardio Rate: regular rate Rhythm: regular rhythm Heart sounds: S1 normal heart sound present, S2 normal heart sound present, no gallops, no murmurs and no rubs GI Inspection: Yes normal to inspection Skin General skin exam: no rashes or lesions noted Neuro General: patient oriented x3 Extrem General: Yes normal to inspection, No no pedal edema, No calf tenderness, No clubbing, No cyanosis and Yes edema Assessment & Plan Assessment & Plan (1) Asthma: Code(s): J45.909 - Unspecified asthma, uncomplicated Qualifiers: Asthma severity: moderate Asthma persistence: persistent Asthma complication type: with acute exacerbation Qualified Code(s): J45.41 - Moderate persistent asthma with (acute) exacerbation (2) Pulmonary nodules: Comment: calcified consistent with granulommas Code(s): R91.8 - Other nonspecific abnormal finding of lung field (3) PAOLA (obstructive sleep apnea): Comment: Not using CPAP Code(s): G47.33 - Obstructive sleep apnea (adult) (pediatric) (4) Chronic allergic rhinitis: Code(s): J30.9 - Allergic rhinitis, unspecified Plan Start Zpack COntinue Prednisone taper FLU/RSV/COVID nasal swab continue Trelegy 200 Continue allergy medicine: singulair and Claritin continue Xolair Needs an EPIPEN positional therapy for PAOLA, if no better consider APAP F/U 6 months Orders: Orders SARS-CoV2/FLU/RSV Today J45.909 - Unspecified asthma, uncomplicated XR chest 2V Today J45.909 - Unspecified asthma, uncomplicated Medications: New azithromycin 500 mg PO DAILY 5 days 5 tabs 0RF prednisone PO daily; Take 2 tabs daily x 5 days, then 1 tablet daily x 5 days 10 days 15 tabs 0RF Coding Level of Care Code Est Pt Level 4 (27506) Diagnoses Moderate persistent asthma with acute exacerbation J45.41 Asthma severity: moderate Asthma persistence: persistent Asthma complication type: with acute exacerbation Pulmonary nodules R91.8 PAOLA (obstructive sleep apnea) G47.33 Chronic allergic rhinitis J30.9 Time Spent (min) 17
== END 2023-09-04 09:02 | disposition home or self-care (01) ==
PROVIDERS: PCP Student in an Organized Health Care Education/Training Program; Visit Provider Hospitalist
DX: J45.41 Moderate persistent asthma with (acute) exacerbation (principal); R91.8 Other nonspecific abnormal finding of lung field; G47.33 Obstructive sleep apnea (adult) (pediatric); J30.9 Allergic rhinitis, unspecified
CPT/HCPCS: 99214

== ENCOUNTER 2023-09-23 09:35 | Outpatient (REF) | payer MEDICAID, SELFPAY | END 2023-09-23 09:36 | disposition home or self-care (01) | LOC: HO.MDS 09:35 | PROVIDERS: Visit Provider Hospitalist | DX: J45.50 Severe persistent asthma, uncomplicated (principal) | CPT/HCPCS: 96372; J2357 ==

== ENCOUNTER 2023-09-25 09:08 | Outpatient (REF) | payer MEDICAID, SELFPAY ==
[2023-09-25 13:16] LABS: Alanine Aminotransferase 19 U/L (0-31); Albumin Level 4.2 g/dL (3.5-5.0); Alkaline Phosphatase 90 U/L (39-117); Anion Gap 14 (12-20); Aspartate Amino Transferase 18 U/L (5-31); Bilirubin Total 0.3 mg/dL (0.0-1.0); Blood Urea Nitrogen 18 mg/dL (9-16); Calcium 9.6 mg/dL (8.4-10.2); Carbon Dioxide 28 mmol/L (22-29); Chloride 104 mmol/L (96-108); Estimated Glomerular Filt Rate > 60; Glucose Random 96 mg/dL (60-115); Magnesium 2.2 mg/dL (1.6-2.6); Potassium 3.6 mmol/L (3.3-5.1); Sodium 142 mmol/L (135-145); Total Protein 7.6 g/dL (6.5-8.0)
== END 2023-09-25 09:09 | disposition home or self-care (01) ==
LOC: HO.HHCL 09:08
PROVIDERS: Visit Provider Student in an Organized Health Care Education/Training Program
DX: E87.6 Hypokalemia (principal)
CPT/HCPCS: 36415; 80053; 83735

== ENCOUNTER 2023-10-07 09:19 | Outpatient (REF) | payer MEDICAID, SELFPAY | END 2023-10-07 09:20 | disposition home or self-care (01) | LOC: HO.MDS 09:19 | PROVIDERS: Visit Provider Hospitalist | DX: J45.50 Severe persistent asthma, uncomplicated (principal) | CPT/HCPCS: 96372; J2357 ==

== ENCOUNTER 2023-10-07 12:48 | Outpatient (REF) | payer MEDICAID, SELFPAY ==
[2023-10-07 17:38] LABS: Alanine Aminotransferase 20 U/L (0-31); Albumin Level 4.2 g/dL (3.5-5.0); Alkaline Phosphatase 91 U/L (39-117); Anion Gap 14 (12-20); Aspartate Amino Transferase 27 U/L (5-31); Bilirubin Total 0.3 mg/dL (0.0-1.0); Blood Urea Nitrogen 11 mg/dL (9-16); Calcium 9.7 mg/dL (8.4-10.2); Carbon Dioxide 30 mmol/L (22-29); Chloride 101 mmol/L (96-108); Estimated Glomerular Filt Rate > 60; Glucose Random 86 mg/dL (60-115); Potassium 3.4 mmol/L (3.3-5.1); Sodium 142 mmol/L (135-145); Total Protein 7.6 g/dL (6.5-8.0)
== END 2023-10-07 12:49 | disposition home or self-care (01) ==
LOC: HO.HHCL 12:48
PROVIDERS: Visit Provider Student in an Organized Health Care Education/Training Program
DX: E87.6 Hypokalemia (principal)
CPT/HCPCS: 36415; 80053

== ENCOUNTER 2023-10-23 08:55 | Outpatient (REF) | payer MEDICAID, SELFPAY | END 2023-10-23 08:56 | disposition home or self-care (01) | LOC: HO.MDS 08:55 | PROVIDERS: Visit Provider Hospitalist | DX: J45.50 Severe persistent asthma, uncomplicated (principal) | CPT/HCPCS: 96372; J2357 ==

== ENCOUNTER 2023-11-06 08:07 | Outpatient (REF) | payer MEDICAID, SELFPAY | END 2023-11-06 08:08 | disposition home or self-care (01) | LOC: HO.MDS 08:07 | PROVIDERS: Visit Provider Hospitalist | DX: J45.50 Severe persistent asthma, uncomplicated (principal) | CPT/HCPCS: 96372; J2357 ==

== ENCOUNTER 2023-11-20 08:06 | Outpatient (REF) | payer MEDICAID, SELFPAY | END 2023-11-20 08:07 | disposition home or self-care (01) | LOC: HO.MDS 08:06 | PROVIDERS: Visit Provider Hospitalist | DX: J45.50 Severe persistent asthma, uncomplicated (principal) | CPT/HCPCS: 96372; J2357 ==

== ENCOUNTER 2023-12-11 08:41 | Outpatient (REF) | payer MEDICAID, SELFPAY ==
--- NOTE | ~2023-12-11 | CT_ITS ---
EXAMINATION: CT STONE WITHOUT AND WITH CONTRAST CLINICAL INFORMATION: Reason for Exam N20.0 - Calculus of kidney COMPARISON: 10/03/2021 TECHNIQUE: Helical scanning was performed with collimation through the abdomen and pelvis without contrast. This CT examination was performed using dose optimization techniques as appropriate, variously including the following: *Automated exposure control *Adjustment of mA and/or kV according to patient size (this includes techniques or standardized protocols for targeted exams where dose is matched to indication/reason for exam; i.e. extremities or head) *Use of iterative reconstruction technique DLP: [id number] FINDINGS: LUNG BASES: Unremarkable. ABDOMINAL AND PELVIC WALL: Unremarkable. LIVER AND BILIARY TREE: Hypoattenuating hepatic lesion measuring 1.5 cm and water density likely reflects a benign cyst. Right posterior hepatic lobe 2 cm water dense hypoattenuating lesion likely reflects an additional hepatic cyst, unchanged. GALLBLADDER: Gallbladder is unremarkable. PANCREAS: Unremarkable. SPLEEN: Unremarkable. ADRENAL GLANDS: Unremarkable. KIDNEYS AND URETERS: Left inferior pole nonobstructing punctate renal stone. Left superior pole punctate nonobstructing stones. No hydronephrosis. GASTROINTESTINAL TRACT: Colonic diverticulosis, no CT findings of diverticulitis. Appendix is within normal limits. VASCULAR: Unremarkable. LYMPH NODES/PERITONEUM: No lymphadenopathy. FREE FLUID: None. BLADDER: Unremarkable. PELVIC VISCERA: Unremarkable. OSSEOUS STRUCTURES: Unremarkable. CT/CT kidney stone IMPRESSION: Nonobstructing left nephrolithiasis. No hydronephrosis.
== END 2023-12-11 08:42 | disposition home or self-care (01) ==
LOC: HO.CT 08:41
PROVIDERS: PCP Student in an Organized Health Care Education/Training Program; Visit Provider Nurse Practitioner Family
DX: N20.0 Calculus of kidney (principal)
CPT/HCPCS: 74176

== ENCOUNTER 2023-12-25 09:50 | Outpatient (AMB) | payer MEDICAID, SELFPAY ==
--- NOTE | 2023-12-25 10:10 | MHC.OFFVIS ---
Intake Intake Visit Reasons: 3m/CT KUB(set) Intake Note: Patient is present for follow up kidney stone and CT Scan Imagin12/11/33 Urology Medications: Vitamin B6 Blood Thinner: none Tire Finisher Required: Yes Tire Finisher Name: KRUNAL PERALESIBIS Accompanied by: Self / Same As Patient Allergies animal dander Allergy (Verified 12/25/23 10:38) Rash tree and shrub pollen Allergy (Verified 12/25/23 10:38) Rash Medication List - Last Reconciled 12/25/23 by VIPUL Huitron- albuterol sulfate 90 mcg/actuation (Ventolin HFA) 2 puffs inhalation QID PRN 30 days albuterol sulfate 2.5 mg (3 mL) inhalation Q4-6H PRN ammonium lactate 12% appl topical atorvastatin 10 mg PO QAM azithromycin 500 mg PO DAILY 5 days calcium citrate 500 mg (2 x 250 mg calcium) PO BID cholecalciferol (vitamin D3) (Vitamin D3) 50 mcg PO DAILY clobetasol 0.05% grams topical BID clotrimazole 1% appl topical compress.stocking,knee,reg,med 15-20 cm cyclobenzaprine 10 mg PO TID PRN diphenhydramine HCl (Benadryl) 50 mg (2 x 25 mg) PO TID PRN diphenhydramine HCl (Benadryl Allergy) 50 mg PO Q8H PRN epinephrine (EpiPen 2-Carlos Eduadro) 0.3 mg (0.3 mL) IM Q10M PRN 30 days fluticasone propionate 50 mcg/actuation 2 sprays intranasal DAILY ncbvailhtwu-fhbugvlcq-ueisvmhb 200-62.5-25 mcg (Trelegy Ellipta) 1 ea inhalation DAILY furosemide (Lasix) 20 mg PO DAILY 7 days hydrochlorothiazide 25 mg PO DAILY hydroxyzine HCl 25 mg PO TID PRN 7 days ibuprofen 800 mg PO Q8H PRN levothyroxine 137 mcg PO DAILY 90 days loratadine 10 mg PO DAILY montelukast 10 mg PO QPM 30 days naproxen 500 mg PO BID 30 days nebulizers As directed nirmatrelvir-ritonavir 300 mg (150 mg x 2)-100 mg (Paxlovid) take TWO 150 mg tablets of nirmatrelvir with ONE 100 mg tablet of ritonavir twice daily for 5 days PO omalizumab (Xolair) 75 mg (0.5 mL) subcut Q2W 28 days omalizumab (Xolair) 150 mg subcut Q2W 28 days pyridoxine (vitamin B6) 100 mg PO DAILY 90 days sennosides (senna) 17.2 mg PO BEDTIME PRN sertraline 25 mg PO QAM triamcinolone acetonide 0.1% appl topical BID HPI HPI Comments History of Present Illness Details Diamond is a pleasant 63-year-old Malay-speaking female patient of . She has a past medical history of nephrolithiasis, sleep apnea, pulmonary nodules, asthma, hypertension, osteopenia, and Fernando's disease. She presents to the office for follow-up regarding her nephrolithiasis. Recent renal imaging results reviewed with the patient today. Left inferior pole nonobstructing punctate renal stone. Left superior pole punctate nonobstructing stones. No hydronephrosis. In discussion with the patient today she continues to report back pain however on exam no CVA tenderness noted bilaterally. Pain appears more in the lumbar region. When asked she denies any bothersome urinary issues or concerns. She reports compliance with vitamin B6 daily. She also discusses her attempt to continue to drink plenty of water daily. She otherwise denies any urinary issues or concerns at this time. She denies urinary urgency, urinary frequency, incontinence, nocturia, hematuria, changes to urinary stream, fever, and or chills. In office urinalysis results reviewed with the patient today. Discussed surveillance monitoring versus surgical intervention. Discussed risks and benefits of surveillance monitoring versus surgical intervention. She otherwise offers no other issues or concerns at this time. FOR[facility], [facility] Medical History Renal calculi Limb swelling Sleep apnea Hx of renal calculi Pulmonary nodules Chronic allergic rhinitis Asthma Hypertension Non-toxic multinodular goiter Osteopenia Fernando's disease Hypothyroidism History of primary hyperparathyroidism Surgical History Status post fine needle aspiration Hx of cystoscopy Hx of lithotripsy History of surgery on arm Hx of parathyroidectomy H/O partial thyroidectomy Hx of tubal ligation Family History Maternal Grandmother Diabetes Father No problems noted. Mother Hypertension Asthma Social History Are you a primary customer care voice consultant to a significant other at home: No Do you presently have visiting nurse or other home services: No Alcohol intake: never Patient Tobacco Use Status: Never used Tobacco Current occupational status: disabled Current occupation: right hand dominant Review of Systems Const Reports no additional complaints Eyes Reports no additional complaints ENT Reports no additional complaints Card Reports as per HPI Resp Reports as per HPI GI Reports no additional complaints Reports as per HPI Musc Reports as per HPI Neuro Reports no additional complaints Psych Reports no additional complaints Endo Reports as per HPI Cheko/Lymph Reports no additional complaints Aller/Immun Reports no additional complaints Physical Exam Const General: cooperative, healthy appearing, comfortable, no acute distress, well developed, alert and awake Nutritional Appearance: overweight Orientation/consciousness: patient oriented x3 Limitations: no limitations HEENT Head: Yes normal to inspection, Yes normocephalic and Yes atraumatic Ears: hearing grossly normal bilaterally Eyes General: appearance normal, both eyes and all related structures Neck Neck: Yes normal visual inspection and Yes trachea midline Chest Chest palpation & inspection: normal inspection of the chest Resp Effort & Inspection: normal respiratory effort and able to speak in complete sentences Cardio Rate: regular rate GI Inspection: Yes normal to inspection General: Yes no CVA tenderness Back/Spine/Pelvis Back: no CVA tenderness Skin General skin exam: no rashes or lesions noted Neuro General: patient oriented x3 Extrem General: Yes normal to inspection Psych Appearance: grossly normal and well kempt Mental Status: mental status grossly normal Speech and movement: Normal speech and movement present and Clear speech present Affect: normal affect Attitude: cooperative Thought process: Normal thought process present Thought content: Normal thought content present Insight: Fair insight present (Psych) Judgement: Fair judgement present (Psych) Results Reviewed Results Reviewed: Date of Service: 12/11/23 EXAMINATION: CT STONE WITHOUT AND WITH CONTRAST FINDINGS: LUNG BASES: Unremarkable. ABDOMINAL AND PELVIC WALL: Unremarkable. LIVER AND BILIARY TREE: Hypoattenuating hepatic lesion measuring 1.5 cm and water density likely reflects a benign cyst. Right posterior hepatic lobe 2 cm water dense hypoattenuating lesion likely reflects an additional hepatic cyst, unchanged. GALLBLADDER: Gallbladder is unremarkable. PANCREAS: Unremarkable. SPLEEN: Unremarkable. ADRENAL GLANDS: Unremarkable. KIDNEYS AND URETERS: Left inferior pole nonobstructing punctate renal stone. Left superior pole punctate nonobstructing stones. No hydronephrosis. GASTROINTESTINAL TRACT: Colonic diverticulosis, no CT findings of diverticulitis. Appendix is within normal limits. VASCULAR: Unremarkable. LYMPH NODES/PERITONEUM: No lymphadenopathy. FREE FLUID: None. BLADDER: Unremarkable. PELVIC VISCERA: Unremarkable. OSSEOUS STRUCTURES: Unremarkable. IMPRESSION: Nonobstructing left nephrolithiasis. No hydronephrosis. Assessment & Plan Assessment & Plan (1) Renal calculi: Code(s): N20.0 - Calculus of kidney Plan In office urinalysis results reviewed with the patient today; as noted above. Recent CT KUB results reviewed with the patient today; as noted above. Discussed, educated, and stressed the importance of drinking plenty of water daily. Continue vitamin B6 daily. Continue adding 1 oz of lemon juice to water daily. Discussed OTC medications and or ice/heat for relief of lower lumbar pain noted on exam today. She currently denies any bothersome urinary issues. She is happy with her current voiding parameters. Will obtain renal ultrasound in 3 months. Follow-up in 3 months with imaging to be completed prior; or sooner with any issues, concerns, and or questions. Orders: Orders AMB Urinalysis Automated Today Z13.9 - Encounter for screening, unspecified US renal BI 3 Months N20.0 - Calculus of kidney Patient Instructions: The patient had an opportunity to ask questions regarding the treatment plan. All questions were answered. Physical exam, labs, and imaging were discussed and reviewed in detail. As well as risks, benefits, and discussion of treatment choices. No major barriers to understanding were identified. The patient expressed understanding and agreement with the above treatment plan. The patient was made aware they should contact our office by phone for worsening of their current condition, the appearance of new symptoms, or with any questions or concerns. Compliance is encouraged with any medications and follow up testing that is ordered. It is a privilege to be allowed the opportunity to participate in? your urological care.? Again, if you have any questions or concerns If you have any questions or concerns please do not hesitate to contact me. The office is [phone]. This note is constructed using voice recognition software. While every effort has been made to ensure accuracy area plant manager errors may have been included. Yours sincerely, HEAVEN HuitronP- Coding Level of Care Code Est Pt Level 3 (57813) Diagnoses Renal calculi N20.0
== END 2023-12-25 10:38 | disposition home or self-care (01) ==
PROVIDERS: Visit Provider Nurse Practitioner Family
DX: N20.0 Calculus of kidney (principal)
CPT/HCPCS: 99213

== ENCOUNTER → 2023-12-25 09:50 | Outpatient (BNVA) | payer MEDICAID, SELFPAY | PROVIDERS: Visit Provider Nurse Practitioner Family | DX: N20.0 Calculus of kidney (principal) | CPT/HCPCS: 99212 ==

== ENCOUNTER 2024-01-05 10:20 | Outpatient (REF) | payer MEDICAID, SELFPAY | END 2024-01-05 10:21 | disposition home or self-care (01) | LOC: HO.MAMMO 10:20 | PROVIDERS: PCP Student in an Organized Health Care Education/Training Program; Visit Provider Internal Medicine | DX: Z12.31 Encounter for screening mammogram for malignant neoplasm of breast (principal) | CPT/HCPCS: 77063; 77067 ==

== ENCOUNTER → 2024-01-05 10:45 | Outpatient (BNV) | payer MEDICAID, SELFPAY | PROVIDERS: PCP Student in an Organized Health Care Education/Training Program; Visit Provider Radiology Diagnostic Radiology | DX: Z12.31 Encounter for screening mammogram for malignant neoplasm of breast (principal) | CPT/HCPCS: 77063; 77067 ==

== ENCOUNTER 2024-01-07 08:07 | Outpatient (REF) | payer MEDICAID, SELFPAY ==
[2024-01-07 08:10] VITALS: BP 138/59; PULSE 84; RESP 20; TEMP 36.7; O2SAT 96
== END 2024-01-07 08:08 | disposition home or self-care (01) ==
LOC: HO.MDS 08:07
PROVIDERS: Visit Provider Hospitalist
DX: J45.50 Severe persistent asthma, uncomplicated (principal)
CPT/HCPCS: 96372; J2357

== ENCOUNTER 2024-01-08 09:16 | Outpatient (AMB) | payer MEDICAID, SELFPAY ==
--- NOTE | 2024-01-08 09:20 | MHC.OFFVIS ---
Intake Vital Signs 01/08/24 09:23 Height 5 ft 2 in Weight 226 lb BMI 41.3 BP 128/82 Blood Pressure Location Lt brachial Position Sitting Respiration 16 Pulse 81 Pulse Source Pulse Oximeter Pulse Oximetry (%) 97 Oxygen Delivery Method Room Air Intake Visit Reasons: PAOLA- LVM w/address Intake Note: Pt presents for new pt evaluation for PAOLA. She reports she has been diagnosed in the past and has tried CPAP but didn't like it so I returned the machine .SHe has daytime somnolence, vivid dreams, talks in her sleep. Department Head Required: No Allergies animal dander Allergy (Verified 01/08/24 09:22) Rash tree and shrub pollen Allergy (Verified 01/08/24 09:22) Rash HPI HPI Comments History of Present Illness Details 63 y/o female patient presents for new in-person visit to manage sleep apnea. Pt was diagnosed with PAOLA in 2021. The home sleep study result was mild degree of sleep apnea. The AHI was 9/hr and oxygen kelin was 81%. Pt tried CPAP but she felt the pressure was too high and could not breathe well. She stopped using CPAP and returned it. However, she continues to experiences gasping arousals, non refreshing sleep with daytime sleepiness. She wakes up several times at night, takes a nap multiple times during daytime. Sleep questionnaire: Have you ever been diagnosed with a sleep disorder? Yes. Have you ever had a sleep study in the past? Yes. Have you ever been treated for a sleep disorder? Yes, CPAP. Do you take medications for a sleep disorder? No. Do you snore? Yes. Do you wake up gasping at night? yes. Do you have episodes of apneas? Yes. If yes, are they witnessed? Yes. Do you have episodes of nocturnal chest pain or dyspnea? No. Do you have difficulty initiating sleep? Yes. Do you have difficulty maintaining sleep? Yes. Do you wake up tired? Yes. Do you have headaches upon awakening? Yes. Do you wake up with dry mouth or throat? Yes. Do you have GERD? Yes. Do you have nocturia? Yes. Do you have nocturnal leg cramps? Yes. Do you have symptoms of restless legs? Yes. Do you act out your dreams? Yes, yelling and screaming. Sleep hygiene questionnaire: What is your usual sleep routine? N/A. Usual bedtime is at ; Usual wake up time is at . Do you take naps? Yes, multiple times. Is your sleep environment cool, dark, and quiet? Yes. Do you exercise? No. Do you take caffeine or other stimulants? Yes. Do you use electronics in bed? Yes. What is your work schedule? N/A. Hypersomnolence questionnaire: Do you have daytime tiredness or fatigue? Yes. Do you easily fall asleep when inactive? Yes. Have you ever had episodes of sudden weakness? No. Have you ever had episodes of sudden weakness associated with strong emotions? No. PFSH Medical History Renal calculi Limb swelling Sleep apnea Hx of renal calculi Pulmonary nodules Chronic allergic rhinitis Asthma Hypertension Non-toxic multinodular goiter Osteopenia Fernando's disease Hypothyroidism History of primary hyperparathyroidism Surgical History Status post fine needle aspiration Hx of cystoscopy Hx of lithotripsy History of surgery on arm Hx of parathyroidectomy H/O partial thyroidectomy Hx of tubal ligation Family History Maternal Grandmother Diabetes Father No problems noted. Mother Hypertension Asthma Social History Are you a primary manager long term care to a significant other at home: No Do you presently have visiting nurse or other home services: No Alcohol intake: never Patient Tobacco Use Status: Never used Tobacco Current occupational status: disabled Current occupation: right hand dominant Physical Exam Vital Signs: Last Vital Signs Pulse 81 01/08/24 09:23 Resp 16 01/08/24 09:23 BP 128/82 01/08/24 09:23 Pulse Ox 97 01/08/24 09:23 Oxygen Delivery Method Room Air 01/08/24 09:23 BMI result Body Mass Index 41.3 Const General: cooperative Nutritional Appearance: obese Orientation/consciousness: patient oriented x3 Limitations: language barrier Resp Effort & Inspection: normal respiratory effort and able to speak in complete sentences Neuro General: patient oriented x3 and gait normal Cranial nerves: Yes CN's II-XII intact bilaterally Gait exam (Neuro): Normal gait present Motor exam (neuro): 5/5 motor strength present throughout Psych Appearance: grossly normal Mental Status: mental status grossly normal Speech and movement: Normal speech and movement present Affect: normal affect Attitude: cooperative Assessment & Plan Assessment & Plan (1) Sleep apnea: Comment: no CPAP Code(s): G47.30 - Sleep apnea, unspecified Qualifiers: Sleep apnea type: obstructive Qualified Code(s): G47.33 - Obstructive sleep apnea (adult) (pediatric) (2) Obesity, Class III, BMI 40-49.9 (morbid obesity): Code(s): E66.01 - Morbid (severe) obesity due to excess calories Plan Pt is advised to undergo in lab sleep study to assess for sleep apnea. Will f/u with pt after study to discuss results and appropriate treatment options. Sleep hygiene education provided. Having routine sleep schedule, limit electronic use and caffeine intake in the evening. Encouraged patient to do daily exercise. Pt to call with any worsening concerns or questions. Orders: Orders RT PSG in-lab sleep study Today E66.01 - Morbid (severe) obesity due to excess calories, G47.33 - Obstructive sleep apnea (adult) (pediatric) Medications: New magnesium oxide 400 mg PO BEDTIME 30 days 30 tabs 3RF Coding Level of Care Code New Pt Level 3 (05923) Diagnoses Obstructive sleep apnea syndrome G47.33 Sleep apnea type: obstructive Obesity, Class III, BMI 40-49.9 (morbid obesity) E66.01
[2024-01-08 09:23] VITALS: BP 128/82; PULSE 81; RESP 16; O2SAT 97; BMI 41.3
== END 2024-01-08 09:59 | disposition home or self-care (01) ==
PROVIDERS: PCP Student in an Organized Health Care Education/Training Program; Referring Provider Student in an Organized Health Care Education/Training Program; Visit Provider Nurse Practitioner Family
DX: G47.33 Obstructive sleep apnea (adult) (pediatric) (principal); E66.01 Morbid (severe) obesity due to excess calories
CPT/HCPCS: 99203

== ENCOUNTER → 2024-01-08 09:16 | Outpatient (BNVA) | payer MEDICAID, SELFPAY | PROVIDERS: PCP Student in an Organized Health Care Education/Training Program; Referring Provider Student in an Organized Health Care Education/Training Program; Visit Provider Nurse Practitioner Family | DX: G47.33 Obstructive sleep apnea (adult) (pediatric) (principal); R40.0 Somnolence; G47.30 Sleep apnea, unspecified; E66.01 Morbid (severe) obesity due to excess calories; Z68.41 Body mass index [BMI] 40.0-44.9, adult | CPT/HCPCS: 99212 ==

== ENCOUNTER → 2024-01-26 19:30 | Outpatient (BNV) | payer MEDICAID, SELFPAY | PROVIDERS: PCP Student in an Organized Health Care Education/Training Program; Visit Provider Psychiatry & Neurology Neurology | DX: R06.83 Snoring (principal) | CPT/HCPCS: 95810 ==

== ENCOUNTER → 2024-01-26 19:30 | Outpatient (REF) | payer MEDICAID, SELFPAY | LOC: HO.SL 19:30 | PROVIDERS: PCP Student in an Organized Health Care Education/Training Program; Visit Provider Nurse Practitioner Family | DX: G47.33 Obstructive sleep apnea (adult) (pediatric) (principal); E66.01 Morbid (severe) obesity due to excess calories | CPT/HCPCS: 95810 ==

== ENCOUNTER 2024-01-28 07:34 | Outpatient (REF) | payer MEDICAID, SELFPAY ==
[2024-02-04 23:29] LABS: HPV mRNA E6/E7 rflx Not Detected (Not Detected)
== END 2024-01-28 07:35 | disposition home or self-care (01) ==
LOC: HO.HHCLNP 07:34
PROVIDERS: Visit Provider Advanced Practice Midwife
DX: Z01.419 Encounter for gynecological examination (general) (routine) without abnormal findings (principal)
CPT/HCPCS: 87624; 88142

== ENCOUNTER 2024-02-19 08:39 | Outpatient (REF) | payer MEDICAID, SELFPAY ==
[2024-02-19 11:39] LABS: Estimated Average Glucose 128 mg/dL; Hemoglobin A1c % 6.1 % (<6.0)
[2024-02-19 12:57] LABS: Alanine Aminotransferase 22 U/L (0-31); Albumin Level 4.1 g/dL (3.5-5.0); Alkaline Phosphatase 92 U/L (39-117); Anion Gap 15 (12-20); Aspartate Amino Transferase 19 U/L (5-31); Bilirubin Total 0.4 mg/dL (0.0-1.0); Blood Urea Nitrogen 14 mg/dL (9-16); Calcium 9.5 mg/dL (8.4-10.2); Carbon Dioxide 27 mmol/L (22-29); Chloride 104 mmol/L (96-108); Cholesterol 155 mg/dL (<200); Estimated Glomerular Filt Rate > 60; Free T4 (Free Thyroxine) 1.14 ng/dL (0.71-1.85); Glucose Random 99 mg/dL (60-115); HDL Cholesterol 56 mg/dL (>40); LDL Cholesterol Calculated 85 mg/dL (<100); Potassium 3.6 mmol/L (3.3-5.1); Sodium 142 mmol/L (135-145); Thyroid Stimulating Hormone 1.97 uIU/mL (0.32-4.0); Total Protein 7.3 g/dL (6.5-8.0); Triglycerides 70 mg/dL (<150)
[2024-02-19 13:17] LABS: Folate 13.1 ng/mL (> or = 4.0); Vitamin B12 304 pg/mL (200-900)
== END 2024-02-19 08:40 | disposition home or self-care (01) ==
LOC: HO.HHCL 08:39
PROVIDERS: Visit Provider Student in an Organized Health Care Education/Training Program
DX: R73.03 Prediabetes (principal); E03.9 Hypothyroidism, unspecified; E78.5 Hyperlipidemia, unspecified
CPT/HCPCS: 36415; 80053; 80061; 82607; 82746; 83036; 84439; 84443

== ENCOUNTER 2024-03-15 10:28 | Outpatient (REF) | payer MEDICAID, SELFPAY ==
--- NOTE | ~2024-03-15 | US_ITS ---
EXAMINATION: US RETROPERITONEAL LIMITED (RENAL ONLY) CLINICAL INFORMATION: Calculus of kidney. COMPARISON: CT stone without and with contrast 12/11/2023. Renal ultrasound 06/12/2023 and 08/05/2022. X-ray abdomen KUB 02/16/2019. TECHNIQUE: Real-time imaging of the kidneys. Limited visualization due to bowel gas. FINDINGS: RIGHT KIDNEY: 10.9 x 4.5 x 6.2 cm (SAG x AP x TRV). No hydronephrosis. No obstructing renal calculi. Limited visualization. There is a cortical defect at the junction of the [id number]-ch-pzgzg pole of the right kidney as previously noted, possibly related to cortical scarring. LEFT KIDNEY: 11.1 x 5.5 x 5.8 cm (SAG x AP x TRV). No hydronephrosis. Left renal 3 mm lower pole calculus. Renal cortical thickness is normal. Limited visualization. ADDITIONAL FINDINGS: Incidental note on a 2.4 x 1.6 x 1.7 cm cyst within septation in the right hepatic lobe inferiorly. US/US renal BI IMPRESSION: 1. Left renal 3 mm lower pole calculus. No hydronephrosis. 2. Incidental note on a 2.4 x 1.6 x 1.7 cm cyst within septation in the right hepatic lobe inferiorly, previously 2.5 x 2.3 x 1.9 cm on ultrasound of 06/12/2023. This study was presented today March 28, 2024 for interpretation. Stat results provided at this time as requested by referring provider.
== END 2024-03-15 10:29 | disposition home or self-care (01) ==
LOC: HO.US 10:28
PROVIDERS: PCP Student in an Organized Health Care Education/Training Program; Visit Provider Nurse Practitioner Family
DX: N20.0 Calculus of kidney (principal)
CPT/HCPCS: 76775

== ENCOUNTER 2024-03-28 09:42 | Outpatient (REF) | payer MEDICAID, SELFPAY ==
[2024-03-28 17:04] LABS: Urine Cytology See Pathology rpt
== END 2024-03-28 09:43 | disposition home or self-care (01) ==
LOC: HO.LNP 09:42
PROVIDERS: Visit Provider Nurse Practitioner Family
DX: R31.29 Other microscopic hematuria (principal); N20.0 Calculus of kidney
CPT/HCPCS: 81003; 88112; 99212

== ENCOUNTER 2024-03-28 09:42 | Outpatient (AMB) | payer MEDICAID, SELFPAY ==
--- NOTE | 2024-03-28 09:58 | A.OFFVIS_ITS ---
Intake Visit Reasons: 3m/US(set) Intake Note: Patient presents today for follow up on: kidney stone and ultrasound results Imaging Completed: 03/15/24 Urology Medications: Vitamin B6 Blood Thinner: none Ambulance Assistant Required: Yes Ambulance Assistant Name: KRUNAL PERALESIBIS Accompanied by: Self / Same As Patient Allergies animal dander Allergy (Verified 03/28/24 18:54) Rash tree and shrub pollen Allergy (Verified 03/28/24 18:54) Rash Medication List - Last Reconciled 03/28/24 by VIPUL Huitron-ALIRIO albuterol sulfate 90 mcg/actuation (Ventolin HFA) 2 puffs inhalation QID PRN 30 days albuterol sulfate 2.5 mg (3 mL) inhalation Q4-6H PRN ammonium lactate 12% appl topical atorvastatin 10 mg PO QAM calcium citrate 500 mg (2 x 250 mg calcium) PO BID cholecalciferol (vitamin D3) (Vitamin D3) 50 mcg PO DAILY clobetasol 0.05% grams topical BID clotrimazole 1% appl topical compress.stocking,knee,reg,med 15-20 cm cyclobenzaprine 10 mg PO TID PRN diphenhydramine HCl (Benadryl) 50 mg (2 x 25 mg) PO TID PRN diphenhydramine HCl (Benadryl Allergy) 50 mg PO Q8H PRN epinephrine 0.3 mg (0.3 mL) IM .q 10min x2 fluticasone propionate 50 mcg/actuation 2 sprays intranasal DAILY dlnvmgjzyja-agttlhzgb-cmpcmard 200-62.5-25 mcg (Trelegy Ellipta) 1 ea inhalation DAILY furosemide (Lasix) 20 mg PO DAILY 7 days hydrochlorothiazide 25 mg PO DAILY hydroxyzine HCl 25 mg PO TID PRN 7 days ibuprofen 800 mg PO Q8H PRN levothyroxine 137 mcg PO DAILY 90 days loratadine 10 mg PO DAILY magnesium oxide 400 mg PO BEDTIME 30 days montelukast 10 mg PO QPM 30 days naproxen 500 mg PO BID 30 days nebulizers As directed omalizumab (Xolair) 75 mg (0.5 mL) subcut Q2W 28 days omalizumab (Xolair) 150 mg subcut Q2W 28 days pyridoxine (vitamin B6) 100 mg PO DAILY 90 days sennosides (senna) 17.2 mg PO BEDTIME PRN sertraline 25 mg PO QAM triamcinolone acetonide 0.1% appl topical BID HPI Comments Details: Diamond is a pleasant 63-year-old Turkmen-speaking female patient of Dr. Weinstein. She has a past medical history of nephrolithiasis, sleep apnea, pulmonary nodules, asthma, hypertension, osteopenia, and Fernando's disease. She presents to the office for follow-up regarding her nephrolithiasis. Recent renal imaging results reviewed with the patient today. Bilateral kidneys with no hydronephrosis. Right kidney with cortical scarring. Left kidney with 3 mm nonobstructing stone. Incidental note of 2.4 cm cyst within septation in the right hepatic lobe that was also seen on previous imaging from May of last year. In discussion with the patient today she continues to report intermittent episodes of left-sided flank pain however states they are infrequent and at times will last 1-2 days and then subsides. She currently denies any bothersome urinary issues or concerns. She reports compliance with vitamin B6 daily. Discussed findings of hepatic cyst patient reports she follows up with GI here at [facility]. She denies urinary urgency, urinary frequency, incontinence, nocturia, hematuria, changes to urinary stream, fever, and or chills. In office urinalysis results reviewed with the patient today. PH 6.0 and microscopic hematuria noted. Discussed importance of adequate hydration given history of nephrolithiasis as well as for overall health and well-being. She denies any previous nicotine dependence and or workplace chemical exposure. Discussed at length potential causes for microscopic hematuria. Discussed further workup to include CT urogram, in office cystoscopy, and urine cytology. She otherwise offers no other issues or concerns at this time. [facility] Medical History Renal calculi Limb swelling Sleep apnea Hx of renal calculi Pulmonary nodules Chronic allergic rhinitis Asthma Hypertension Non-toxic multinodular goiter Osteopenia Fernando's disease Hypothyroidism History of primary hyperparathyroidism Surgical History Status post fine needle aspiration Hx of cystoscopy Hx of lithotripsy History of surgery on arm Hx of parathyroidectomy H/O partial thyroidectomy Hx of tubal ligation Family History Maternal Grandmother Diabetes Father No problems noted. Mother Hypertension Asthma Social History Are you a primary childcare center director to a significant other at home: No Do you presently have visiting nurse or other home services: No Alcohol intake: never Patient Tobacco Use Status: Never used Tobacco Current occupational status: disabled Current occupation: right hand dominant Review of Systems Const Reports no additional complaints Eyes Reports no additional complaints ENT Reports no additional complaints Card Reports as per HPI Resp Reports as per HPI GI Reports no additional complaints Reports as per HPI Musc Reports as per HPI Neuro Reports no additional complaints Psych Reports no additional complaints Endo Reports as per HPI Cheko/Lymph Reports no additional complaints Aller/Immun Reports no additional complaints Physical Exam Const General: cooperative, healthy appearing, comfortable, no acute distress, well developed, alert and awake Nutritional Appearance: overweight Orientation/consciousness: patient oriented x3 Limitations: no limitations HEENT Head: Yes normal to inspection, Yes normocephalic and Yes atraumatic Ears: hearing grossly normal bilaterally Eyes General: appearance normal, both eyes and all related structures Neck Neck: Yes normal visual inspection and Yes trachea midline Chest Chest palpation & inspection: normal inspection of the chest Resp Effort & Inspection: normal respiratory effort and able to speak in complete sentences Cardio Rate: regular rate GI Inspection: Yes normal to inspection General: Yes no CVA tenderness Back/Spine/Pelvis Back: no CVA tenderness Skin General skin exam: no rashes or lesions noted Neuro General: patient oriented x3 Extrem General: Yes normal to inspection Psych Appearance: grossly normal and well kempt Mental Status: mental status grossly normal Speech and movement: Normal speech and movement present and Clear speech present Affect: normal affect Attitude: cooperative Thought process: Normal thought process present Thought content: Normal thought content present Insight: Fair insight present (Psych) Judgement: Fair judgement present (Psych) Results AMB Urinalysis, Automated UA Leukoctes 0 Vashti/uL Last Edit by Krupa Bang on 03/28/24 10:11 UA Nitrite Negative Last Edit by Krupa Bang on 03/28/24 10:11 UA Urobilinogen 0.2 mg/dL Last Edit by Krupa Bang on 03/28/24 10:11 UA Protein 0 mg/dL Last Edit by Krupa Bang on 03/28/24 10:11 UA pH 6.0 Last Edit by Krupa Bang on 03/28/24 10:11 UA Blood 200 Norberto/uL Last Edit by Krupa Bang on 03/28/24 10:11 UA Specific Mather 1.015 Last Edit by Krupa Bang on 03/28/24 10:11 UA Ketone Negative Last Edit by Krupa Bang on 03/28/24 10:11 UA Bilirubin 0 mg/dL Last Edit by Krupa Bang on 03/28/24 10:11 UA Glucose 0 mg/dL Last Edit by Krupa Bang on 03/28/24 10:11 Results Reviewed Results Reviewed: Laboratory Last Values Urine pH (Auto) 6.0 03/28/24 10:05 Specific Mather (Auto) 1.015 03/28/24 10:05 Urine Protein (Auto) 0 mg/dL 03/28/24 10:05 Glucose (UA)(Auto) 0 mg/dL 03/28/24 10:05 Urine Ketones (Auto) Negative 03/28/24 10:05 Urine Blood (Auto) 200 Norberto/uL 03/28/24 10:05 Urine Nitrite (Auto) Negative 03/28/24 10:05 Urine Bilirubin (Auto) 0 mg/dL 03/28/24 10:05 Urine Urobilinogen (Auto) 0.2 mg/dL 03/28/24 10:05 Leukocyte Esterase (Auto) 0 Vashti/uL 03/28/24 10:05 Date of Service: 03/15/24 Procedure(s): US renal BI FINDINGS: RIGHT KIDNEY: 10.9 x 4.5 x 6.2 cm (SAG x AP x TRV). No hydronephrosis. No obstructing renal calculi. Limited visualization. There is a cortical defect at the junction of the eip-gr-totbr pole of the right kidney as previously noted, possibly related to cortical scarring. LEFT KIDNEY: 11.1 x 5.5 x 5.8 cm (SAG x AP x TRV). No hydronephrosis. Left renal 3 mm lower pole calculus. Renal cortical thickness is normal. Limited visualization. ADDITIONAL FINDINGS: Incidental note on a 2.4 x 1.6 x 1.7 cm cyst within septation in the right hepatic lobe inferiorly. IMPRESSION: 1. Left renal 3 mm lower pole calculus. No hydronephrosis. 2. Incidental note on a 2.4 x 1.6 x 1.7 cm cyst within septation in the right hepatic lobe inferiorly, previously 2.5 x 2.3 x 1.9 cm on ultrasound of 06/12/2023. Assessment & Plan Assessment & Plan (1) Renal calculi: Code(s): N20.0 - Calculus of kidney Category: Medical (2) Microhematuria: Code(s): R31.29 - Other microscopic hematuria Category: Medical Plan In office urinalysis results reviewed with the patient today; as noted above; will send for urine cytology. Patient currently denies any bothersome urinary issues or concerns. She reports be happy with current voiding parameters. Recent renal imaging results reviewed with the patient today; as noted above. Discussed continue to follow-up with GI for hepatic cyst. Discussed at length importance of adequate hydration given history of nephrolithiasis. Will continue with surveillance monitoring of nephrolithiasis. Continue vitamin B6 as discussed and prescribed. Will obtain CT urogram in 6 months. BUN and creatinine ordered for imaging. Follow-up in 6 months with imaging to be completed prior; or sooner with any issues, concerns, and or questions. Orders: Orders AMB Urinalysis Automated Today Z13.9 - Encounter for screening, unspecified CT urogram 6 Months R31.0 - Gross hematuria Urine Cytology Today R31.29 - Other microscopic hematuria Blood Urea Nitrogen 6 Months R31.29 - Other microscopic hematuria Creatinine 6 Months R31.29 - Other microscopic hematuria Medications: Discontinued diphenhydramine HCl (Benadryl) Discontinued Reason: Patient Completed Course 50 mg (2 x 25 mg) PO TID PRN 20 caps 0RF itching Patient Instructions: The patient had an opportunity to ask questions regarding the treatment plan. All questions were answered. Physical exam, labs, and imaging were discussed and reviewed in detail. As well as risks, benefits, and discussion of treatment choices. No major barriers to understanding were identified. The patient expressed understanding and agreement with the above treatment plan. The patient was made aware they should contact our office by phone for worsening of their current condition, the appearance of new symptoms, or with any questions or concerns. Compliance is encouraged with any medications and follow up testing that is ordered. It is a privilege to be allowed the opportunity to participate in? your urological care.? Again, if you have any questions or concerns If you have any questions or concerns please do not hesitate to contact me. The office is [phone]. This note is constructed using voice recognition software. While every effort has been made to ensure accuracy general production laborer errors may have been included. Yours sincerely, TOM Huitron Coding Level of Care Code Est Pt Level 3 (83848) Diagnoses Renal calculi N20.0 Microhematuria R31.29
== END 2024-03-28 10:34 | disposition home or self-care (01) ==
PROVIDERS: Visit Provider Nurse Practitioner Family
DX: N20.0 Calculus of kidney (principal); R31.29 Other microscopic hematuria; Z13.9 Encounter for screening, unspecified
CPT/HCPCS: 99213

== ENCOUNTER 2024-04-05 10:00 | Outpatient (RCR) | payer MEDICAID, SELFPAY | END 2024-04-12 10:49 | disposition home or self-care (01) | LOC: HO.PT 10:00 | PROVIDERS: PCP Student in an Organized Health Care Education/Training Program; Visit Provider Student in an Organized Health Care Education/Training Program | DX: M54.31 Sciatica, right side (principal) | CPT/HCPCS: 97110; 97162 ==

== ENCOUNTER 2024-08-04 08:31 | Outpatient (REF) | payer MEDICAID, SELFPAY ==
[2024-08-04 11:20] LABS: Blood Urea Nitrogen 10 mg/dL (9-16); Estimated Glomerular Filt Rate > 60
== END 2024-08-04 08:32 | disposition home or self-care (01) ==
LOC: HO.CHCLDS 08:31
PROVIDERS: Visit Provider Nurse Practitioner Family
DX: R31.29 Other microscopic hematuria (principal)
CPT/HCPCS: 36415; 82565; 84520

== ENCOUNTER 2024-08-31 08:55 | Outpatient (AMB) | payer MEDICAID, SELFPAY ==
--- NOTE | 2024-08-31 08:57 | A.OFFVIS_ITS ---
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 Patient reports at night she gets pain that radiates up half way up her arm but does not reach her elbow. She says she sleeps wrong occasionally so she also gets tingling. She expresses whenever her right ring finger locks on her she applies pressure on the volar aspect of her hand below the 4th digit to release her finger. Denies injections to her hands in the past and any therapy. Years ago she had a fall in [place] resulting in surgery to her right arm and hardware placement. 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 Patient states that she frequently awakens at night with her finger locked and caught in a flexed position, and this occasionally happens during the day as well. Patient does also report pain in the finger, particularly on the volar side at the base of the right ring finger. Patient denies any particular injury that started this locking and catching. Patient would like to explore any treatment options available. No other acute complaints or concerns at this time. [facility] Medical History Renal calculi Limb swelling Sleep apnea Hx of renal calculi Pulmonary nodules Chronic allergic rhinitis Asthma Hypertension Non-toxic multinodular goiter Osteopenia Fernando's disease Hypothyroidism History of primary hyperparathyroidism Surgical History Status post fine needle aspiration Hx of cystoscopy Hx of lithotripsy History of surgery on arm Hx of parathyroidectomy H/O partial thyroidectomy Hx of tubal ligation Family History Maternal Grandmother Diabetes Father No problems noted. Mother Hypertension Asthma Social History Are you a primary dog daycare provider to a significant other at home: No Do you presently have visiting nurse or other home services: No Alcohol intake: never Patient Tobacco Use Status: Never used Tobacco Current occupational status: disabled Current occupation: right hand dominant Review of Systems Const All systems reviewed & are unremarkable except as noted in HPI and below Physical Exam Vital Signs: BMI result Body Mass Index 38.4 Extrem Other: Patient is alert, oriented, and in no acute distress. Neuro: Normal sensation of the tips of all digits of the right hand at this time Vascular: Cap refill brisk Pain: Tenderness to palpation of the A1 alice of the right ring finger Pain associated with locking and catching of the right ring finger ROM: Visible and palpable locking and catching of the right ring finger in the office today, requiring manual release Skin: No lacerations or abrasions. General: No ecchymosis, erythema, or evidence of infection. Psych: Appears grossly normal Affect normal Attitude cooperative Office Procedures AMB Tendon Injection Tendon Injection [id number] Tendon Sheath Injection All charges added?: Procedure code (CPT) selection complete Assessment & Plan Assessment & Plan (1) Trigger finger, right ring finger: Code(s): M65.341 - Trigger finger, right ring finger Category: Medical Plan 1. Trigger finger, right ring finger I discussed this condition with the patient in the treatment options available, namely steroid injection and surgery Patient would like to proceed with injection at this time The risks and benefits of a steroid injection including but not limited to risk of damage to blood vessels, nerves, tendons, infection, skin bleaching, failure to improve symptoms, increased pain, and possible need for further injections or other intervention were discussed with the patient and the patient wishes to proceed with the steroid injection. Once consent was obtained, I sterilely prepped the area over the A1 alice of the flexor tendon sheath of the right ring finger. I then injected the flexor tendon sheath with a combination of 1 mL of dexamethasone (4mg/ml), and 1% lidocaine. The patient tolerated the procedure well with no complications. If the patient continues to have locking and catching 4-6 weeks following this injection, they may call to schedule appointment to discuss alternative treatment options Follow-up prn Coding Level of Care Code New Pt Level 3 (99605) Diagnoses Trigger finger, right ring finger M65.341 CPT Codes Tendon Injection - Tendon Injection 1: [id number] Tendon Sheath Injection ([id number])
[2024-08-31 09:02] VITALS: BMI 38.4
== END 2024-08-31 09:49 | disposition home or self-care (01) ==
PROVIDERS: PCP Internal Medicine
DX: M65.341 Trigger finger, right ring finger (principal)
CPT/HCPCS: 20550; 99213

== ENCOUNTER → 2024-08-31 08:55 | Outpatient (BNVA) | payer MEDICAID, SELFPAY | PROVIDERS: PCP Internal Medicine | DX: M65.341 Trigger finger, right ring finger (principal) | CPT/HCPCS: 20550; 99212; J1100; J2003 ==

== ENCOUNTER 2024-09-05 08:23 | Outpatient (REF) | payer MEDICAID, SELFPAY ==
[2024-09-05 12:00] LABS: Hematocrit 38.2 % (37.0-47.0); Hemoglobin 12.7 g/dl (12.0-16.0); Mean Corpuscular HGB Conc 33.2 g/dl (31.0-35.0); Mean Corpuscular Hemoglobin 28.9 pg (27.0-33.0); Platelet Count 429 X10*3/uL (160-400); Red Blood Count 4.39 X10*6/uL (4.20-5.50); Red Cell Distribution Width 12.2 % (11.0-16.0); White Blood Count 6.5 X10*3/uL (4.8-10.8)
[2024-09-05 12:06] LABS: Estimated Average Glucose 117 mg/dL; Hemoglobin A1C 130.3948 umol/L; Hemoglobin A1c % 5.7 % (<6.0)
[2024-09-05 12:28] LABS: Creatinine Urine 49.44 mg/dL; Microalbumin Urine < 5.0 mg/L
[2024-09-05 12:35] LABS: Alanine Aminotransferase 23 U/L (0-31); Alkaline Phosphatase 115 U/L (39-117); Anion Gap 12 (12-20); Aspartate Amino Transferase 23 U/L (5-31); Bilirubin Total 0.3 mg/dL (0.0-1.0); Blood Urea Nitrogen 13 mg/dL (9-16); Calcium 9.6 mg/dL (8.4-10.2); Carbon Dioxide 32 mmol/L (22-29); Chloride 100 mmol/L (96-108); Cholesterol 152 mg/dL (<200); Estimated Glomerular Filt Rate > 60; Glucose Random 85 mg/dL (60-115); HDL Cholesterol 56 mg/dL (>40); LDL Cholesterol Calculated 70 mg/dL (<100); Potassium 3.8 mmol/L (3.3-5.1); Sodium 140 mmol/L (135-145); Total Protein 7.1 g/dL (6.5-8.0); Triglycerides 134 mg/dL (<150)
[2024-09-05 12:36] LABS: Free T4 (Free Thyroxine) 1.66 ng/dL (0.71-1.85); Thyroid Stimulating Hormone 0.15 uIU/mL (0.32-4.0)
[2024-09-05 12:40] LABS: Folate 10.7 ng/mL (> or = 4.0); Vitamin B12 299 pg/mL (200-900)
== END 2024-09-05 08:24 | disposition home or self-care (01) ==
LOC: HO.HHCL 08:23
PROVIDERS: Visit Provider Student in an Organized Health Care Education/Training Program
DX: Z00.00 Encounter for general adult medical examination without abnormal findings (principal)
CPT/HCPCS: 36415; 80053; 80061; 82043; 82306; 82570; 82607; 82746; 83036; 84439; 84443; 85027

== ENCOUNTER 2024-09-14 08:36 | Outpatient (REF) | payer MEDICAID, SELFPAY ==
[2024-09-14 12:13] LABS: Free T4 (Free Thyroxine) 1.31 ng/dL (0.71-1.85); Thyroid Stimulating Hormone 0.15 uIU/mL (0.32-4.0)
== END 2024-09-14 08:37 | disposition home or self-care (01) ==
LOC: HO.HHCL 08:36
PROVIDERS: Visit Provider Student in an Organized Health Care Education/Training Program
DX: E03.9 Hypothyroidism, unspecified (principal)
CPT/HCPCS: 36415; 84439; 84443

== ENCOUNTER 2024-09-20 08:06 | Outpatient (REF) | payer MEDICAID, SELFPAY ==
[2024-09-20] MEDS: iohexoL 350 MG/ML 100 ML INFUS..BTL IV (09:05)
== END 2024-09-20 08:07 | disposition home or self-care (01) ==
LOC: HO.CT 08:06
PROVIDERS: PCP Internal Medicine; Visit Provider Nurse Practitioner Family
DX: R31.0 Gross hematuria (principal)
CPT/HCPCS: 74178; Q9967

== ENCOUNTER → 2024-09-20 08:09 | Outpatient (BNV) | payer MEDICAID, SELFPAY | PROVIDERS: PCP Internal Medicine; Visit Provider Radiology Diagnostic Radiology | DX: R31.0 Gross hematuria (principal) | CPT/HCPCS: 74178 ==

== ENCOUNTER 2024-12-16 09:59 | Outpatient (AMB) | payer MEDICAID, SELFPAY ==
--- NOTE | 2024-12-16 10:07 | MHC.OFFVIS ---
Vital Signs 12/16/24 10:20 Height 5 ft 2 in Weight 210 lb BMI 38.4 Intake Visit Reasons: OV-Right 4th trigger finger s/p inj 08/31/24 Intake Note: Diamond is a 63 year old right hand dominant female who presents today for a follow up of her right 4th trigger finger. This finger was last injected on 08/31/24. Today patient reports the injection did not help her. She wishes to discuss surgery today. Compressed Yeast Supervisor Required: Yes Compressed Yeast Supervisor Language: Chief Controller Station Services: Compressed Yeast Supervisor Present Compressed Yeast Supervisor Name: JEAN CARLOS Cazares/CORIE Information Interpreted: clinical only Allergies animal dander Allergy (Verified 12/16/24 10:19) Rash tree and shrub pollen Allergy (Verified 12/16/24 10:19) Rash HPI HPI OV-Right 4th trigger finger s/p inj 08/31/24: Details: Diamond is a 63 year old right hand dominant female who presents today for a follow up of her right 4th trigger finger. This finger was last injected on 08/31/24. Today patient reports the injection did not help her. Reports she is still experiencing significant locking, catching, pain of the right 4th finger. She wishes to discuss surgery today. [facility] Medical History Renal calculi Limb swelling Sleep apnea Hx of renal calculi Pulmonary nodules Chronic allergic rhinitis Asthma Hypertension Non-toxic multinodular goiter Osteopenia Fernando's disease Hypothyroidism History of primary hyperparathyroidism Surgical History Status post fine needle aspiration Hx of cystoscopy Hx of lithotripsy History of surgery on arm Hx of parathyroidectomy H/O partial thyroidectomy Hx of tubal ligation Family History Maternal Grandmother Diabetes Father No problems noted. Mother Hypertension Asthma Social History Are you a primary customer care coordinator to a significant other at home: No Do you presently have visiting nurse or other home services: No Alcohol intake: never Patient Tobacco Use Status: Never used Tobacco Current occupational status: disabled Current occupation: right hand dominant Review of Systems Const All systems reviewed & are unremarkable except as noted in HPI and below Physical Exam Vital Signs: BMI result Body Mass Index 38.4 Extrem Other: Patient is alert, oriented, and in no acute distress. Neuro: Normal sensation of the tips of all digits of the right hand at this time Vascular: Cap refill brisk Pain: Tenderness to palpation of the A1 alice of the right ring finger Pain associated with locking and catching of the right ring finger ROM: Visible and palpable locking and catching of the right ring finger in the office today, requiring manual release Skin: No lacerations or abrasions. General: No ecchymosis, erythema, or evidence of infection. Psych: Appears grossly normal Affect normal Attitude cooperative Assessment & Plan Assessment & Plan (1) Trigger finger, right ring finger: Code(s): M65.341 - Trigger finger, right ring finger Category: Medical Plan 1. Trigger finger, right ring finger I educated the patient about the condition. I discussed both operative and nonoperative treatment options. The patient would like to proceed with surgery. \ The risks and benefits of operative treatment were discussed with the patient and the patient wishes to proceed with surgery. These risks include, but are not limited to, risk of damage to blood vessels, nerves, tendons, infection, recurrence, incomplete relief of preoperative symptoms, persistent pain, possible need for further surgery, and the risks associated with regional blocks and/or anesthesia. Plan is to take the patient to the operating room at some point in the next few weeks for the following procedures: 1. Right ring finger trigger release under local All of the preoperative paperwork including the consent was discussed today. All of the patient's questions were answered in the clinic today. The patient understands that they will be in contact with our surgical asst to discuss scheduling their procedure. Patient denies diabetes, blood thinners, asthma, heart issues, lung issues, kidney issues, or current smoking. Coding Level of Care Code Est Pt Level 4 (48244) Diagnoses Trigger finger, right ring finger M65.341
[2024-12-16 10:20] VITALS: BMI 38.4
--- OUTSIDE RECORDS SUMMARY | 2024-12-16 11:03 | XMS_ITS | Encounter Summary ---
Author Organization [employer] Address [address] [place] [address] Care Team Providers Care Government Affairs Manager Name Role Phone Diamond Blake MD Primary Care Pro vider Reason for Visit * Reason Comments Med Refill Encounter Details Date Type Department Care Team ([facility] st Contact Info) Description 10/25/2024 Refill [facility] [address] [place] [address] Diamond Blake MD [address] [place] [address] Hypertension, unspecified type Social History Tobacco Use Types Packs/Day Years Used Date Smoking Tobacco: Never Smokeless Tobacco: Never Alcohol Use Standard Drinks/Week Comments Never 0 (1 standard drink = 0.6 oz pur e alcohol) Alcohol Answer Date Recorded Frequency of Alcohol Consumption Not on file 08/30/2024 Average Number of Drinks Not on file 024 Frequency of Binge Drinking Not on file 08/19 Score 0 08/30/2024 Depression Answer Date Recorded Patient Health Questionnaire-9 Score 14 04/27/2024 Patient Health Questionnaire-9 Score 14 04/27/2024 Last PHQ-9: Questionnaire Data Not on file 0 04/27/2024 Housing Stability Answer Date Recorded What is your housing situation today? I have rochelle vidales 08/04/[address] you li ve. Do you have problems with any of the following? None of the above 08/04/2023 Food Insecurity Answer Date Recorded Within the past 12 months, y ou worried that your food would run out before you got money to buy more: Never True 08/04/2023 Within the past 12 months,th e food you bought just didn't last and you didn't have enough money to get more: Never True Transportation Answer Date Recorded In the past 12 months, has l ack of transportation kept you from medical appts, meetings, work or from getting things needed for daily living? No 08/04/2023 Utilities Answer Date Recorded In the past 12 months, has t he electric, gas, oil or water company threatened to shut off services in your home? No 08/04/2023 Depression Answer Date Recorded Patient Health Questionnaire-2 Score 3 08/30/2024 Comments No Sex and Gender Information Value Date Recorded Sex Assigned at Female 08/18/2022 10:31 AM EDT Legal Sex Female 10:31 AM EDT Gender Identity Female 08/18/2022 10:31 AM EDT Sexual Orientation Straight 08/18/2022 10 :31 AM EDT documented as of this encounter Plan of Treatment Upcoming Encounters Date Type Department Care Team (Late st Contact Info) Description 01/24/2025 9:15 AM EDT Office Visit [facility] [address] [place] [id number] Wanda Hough CNM [address] [place] [address] documented as of this encounter Visit Diagnoses Diagnosis Hypertension, unspecified type documented in this encounter Additional Health Concerns Assessment Noted Time PHQ-9 Depression Total Score: 14 024 9:42 AM EDT documented as of this encounter Care Teams Government Affairs Manager Relationship Specialty Start Date End Date Diamond Blake MD [address] [place] [address] PCP - General Internal Medicine 06/30/23 Zechariah Bradley [employer] Partnership SpecialistContact Lens Flashing Puncher 03/23/24 documented as of this encounter
--- OUTSIDE RECORDS SUMMARY | 2024-12-16 11:03 | XMS_ITS | Encounter Summary ---
Author Organization [employer] Address [address] [facility] [address] 7t [place] [address] Care Team Providers Care Pharmacometrician Name Role Phone Diamond Blake MD Primary Care Pro vider Reason for Visit * Reason Onset Date Comments Med Refill 09/28/2023 Encounter Details Date Type Department Care Team (Late st Contact Info) Description 09/28/2023 Refill [facility] MED & PEDS [address] [place] [address] Zaida Christy MD [address] [place] [address] Hypertension, unspecified type Social History Tobacco Use Types Packs/Day Years Used Date Smoking Tobacco: Never Smokeless Tobacco: Never Alcohol Use Standard Drinks/Week Comments Never 0 (1 standard drink = 0.6 oz pur e alcohol) Depression Answer Date Recorded Patient Health Questionnaire-9 Score 15 12/12/2022 Housing Stability Answer Date Recorded What is [...] Answer Date Recorded Patient Health Questionnaire-2 Score 5 12/12/2022 Comments Unknown Sex and Gender Information Value Date Recorded Sex Assigned at Female 08/18/2022 10:31 AM EDT Legal Sex Female 10:31 AM EDT Gender Identity Female 08/18/2022 10:31 AM EDT Sexual Orientation Straight 08/18/2022 10 :31 AM EDT documented as of this encounter Plan of Treatment Upcoming Encounters Date Type Department Care Team (Late st Contact Info) Description 01/24/2025 9:15 AM EDT Office Visit [facility] MEDICINE [address] [place] [address] Wanda Hough CNM [address] [place] [address] [phone] documented as of this encounter Visit Diagnoses Diagnosis Hypertension, unspecified type documented in this encounter Additional Health Concerns Assessment Noted Time PHQ-9 Depression Total Score: 15 023 2:22 PM EST documented as of this encounter Care Teams Pharmacometrician Relationship Specialty Start Date End Date Diamond Blake MD [address] [place] [phone] PCP - General Internal Medicine 06/30/23 Zechariah Bradley Carton RepairerField Support Rep 03/23/24 documented as of this encounter
--- OUTSIDE RECORDS SUMMARY | 2024-12-16 11:03 | XMS_ITS | Encounter Summary ---
Author Organization [employer] [facility] Address [address] [facility] 7t [place] [address] Care Team Providers Care Product Consultant Name Role Phone Kailash Trevizo Primary Care Provider Unavail able Diamond Blake MD Primary Care Pro vider Encounter Details Date Type Department Care Team (Late st Contact Info) Description 06/02/2023 Abstract [facility] ADULT DENTAL [address] [place] [address] Mervin Davisaris [address] [place] [address] Social History Tobacco Use Types Packs/Day Years Used Date Smoking Tobacco: Never Smokeless Tobacco: Never Alcohol Use Standard Drinks/Week Comments Never 0 (1 standard drink = 0.6 oz pur e alcohol) Depression Answer Date Recorded Patient Health Questionnaire-9 Score 15 12/12/2022 Depression Answer Date Recorded Patient Health Questionnaire-2 [...] Description 01/24/2025 9:15 AM EDT Office Visit [facility] MEDICINE [address] [place] [address] Wanda Hough CNM [address] [place] [address] documented as of this encounter Visit Diagnoses Not on filedocumented in this encounter Additional Health Concerns Assessment Noted Time PHQ-9 Depression Total Score: 15 12/12/ 023 2:22 PM EST documented as of this encounter Care Teams Product Consultant Relationship Specialty Start Date End Date Kailash Trevizo AGNP PCP - General Family Medicine 11/13/22 06/29/23 Diamond Blake MD [address] [place] [id number] PCP - General Internal Medicine 06/30/23 Zechariah Bradley DietistDental Coordinator 03/23/24 documented as of this encounter
--- OUTSIDE RECORDS SUMMARY | 2024-12-16 11:03 | XMS_ITS | Encounter Summary ---
Author Organization [employer] Address [address] [facility] 7t [place] [address] Care Team Providers Care Shop Technician Name Role Phone Diamond Blake MD Primary Care Pro vider Reason for Visit * Reason Onset Date Comments Med Refill 11/30/2024 Encounter Details Date Type Department Care Team ([facility] st Contact Info) Description 11/30/2024 Refill [facility] MED & PEDS [address] [place] [address] Diamond Blake MD [address] [place] [address] Social History Tobacco Use Types Packs/Day Years [...] Description 01/24/2025 9:15 AM EDT Office Visit [facility] MEDICINE [address] [place] [address] Wanda Hough CNM [address] [place] [address] documented as of this encounter Visit Diagnoses Not on filedocumented in this encounter Additional Health Concerns Assessment Noted Time PHQ-9 Depression Total Score: 14 024 9:42 AM EDT documented as of this encounter Care Teams Shop Technician Relationship Specialty Start Date End Date Diamond Blake MD [address] [place] [address] PCP - General Internal Medicine 06/30/23 Zechariah Bradley Gas Engine Operator CompressorsDrafter Electronic 03/23/24 documented as of this encounter
--- OUTSIDE RECORDS SUMMARY | 2024-12-16 11:03 | XMS_ITS | Encounter Summary ---
Author Organization [employer] [facility] Address [address] [place] [address] 7 [place] [address] Care Team Providers Care Shoe Stainer Name Role Phone Diamond Blake MD Primary Care Pro vider Reason for Visit * Reason Onset Date Comments Med Refill 07/08/2023 Encounter Details Date Type Department Care Team (Late st Contact Info) Description 07/08/2023 Refill [facility] MEDICINE [address] [place] [address] Diamond Blake MD [address] [place] [address] Severe chronic obstructive pulmonary disease (CMS/HCC); Hypertension, unspecified type; Hyperlipidemia, unspecified hyperlipidemia type; Chronic pain of both knees; Acute pain of left shoulder Social History Tobacco Use Types Packs/Day Years [...] Description 01/24/2025 9:15 AM EDT Office Visit [facility] MEDICINE [address] [place] [address] Wanda Hough CNM [address] [place], [place] [phone] documented as of this encounter Visit Diagnoses Diagnosis Severe chronic obstructive pulmonary disease (CMS/HCC) Chronic airway obstruction, not elsewhere classified Hypertension, unspecified type Hyperlipidemia, unspecified hyperlipidemia type Chronic pain of both knees Acute pain of left shoulder documented in this encounter Additional Health Concerns Assessment Noted Time PHQ-9 Depression Total Score: 15 023 2:22 PM EST documented as of this encounter Care Teams Shoe Stainer Relationship Specialty Start Date End Date Diamond Blake MD [address] [place], [place] [phone] PCP - General Internal Medicine 06/30/23 Zechariah Bradley Water Plant Pump OperatorNight Baker 03/23/24 documented as of this encounter
--- OUTSIDE RECORDS SUMMARY | 2024-12-16 11:03 | XMS_ITS | Encounter Summary ---
Author Organization [employer] Address [address] 7[address] [place] [address] Care Team Providers Care Front End Web Developer Name Role Phone Diamond Blake MD Primary Care Pro vider Encounter Details Date Type Department Care Team (Latest Contact Info) Description 12/01/2024 Travel Social History Tobacco Use Types Packs/Day Years [...] Description 01/24/2025 9:15 AM EDT Office Visit [facility] MEDICINE [address] [place] [address] Wanda Hough CNM [address] [place], [place] [phone] documented as of this encounter Visit Diagnoses Not on filedocumented in this encounter Additional Health Concerns Assessment Noted Time PHQ-9 Depression Total Score: 14 024 9:42 AM EDT documented as of this encounter Care Teams Front End Web Developer Relationship Specialty Start Date End Date Diamond Blake MD [address] [place] [address] [id number] PCP - General Internal Medicine 06/30/23 Zechariah Bradley Hops FarmworkerEnvironmental Marketer 03/23/24 documented as of this encounter
--- OUTSIDE RECORDS SUMMARY | 2024-12-16 11:03 | XMS_ITS | Encounter Summary ---
Author Organization [employer] [facility] Address [address] [place] [address] 7 [place] [address] Care Team Providers Care Analyst Food And Beverage Name Role Phone Diamond Blake MD Primary Care Pro vider Reason for Visit * Reason Comments Med Refill Encounter Details Date Type Department Care Team (Late st Contact Info) Description 07/06/2023 Refill [facility] MEDICINE [address] [place] [address] Kailash Trevizo AGNP Hypertension, unspecified type Social History Tobacco Use [...] Description 01/24/2025 9:15 AM EDT Office Visit [facility] MEDICINE [address] [place] [address] Wanda Hough CNM [address] [place] [address] documented as of this encounter Visit Diagnoses Diagnosis Hypertension, unspecified type documented in this encounter Additional Health Concerns Assessment Noted Time PHQ-9 Depression Total Score: 15 12/12/ 023 2:22 PM EST documented as of this encounter Care Teams Analyst Food And Beverage Relationship Specialty Start Date End Date Diamond Blake MD [address] [place] [id number] PCP - General Internal Medicine 06/30/23 Zechariah Bradley Oil Heater InstallerChild Development Assistant 03/23/24 documented as of this encounter
--- OUTSIDE RECORDS SUMMARY | 2024-12-16 11:03 | XMS_ITS | Encounter Summary ---
Author Organization [employer] Address [address] [facility] 7t [place] [address] Care Team Providers Care Barrel Roller Operator Name Role Phone Diamond Blake MD Primary Care Pro vider Reason for Visit * Reason Comments Med Refill Encounter Details Date Type Department Care Team (Late st Contact Info) Description 01/29/2024 Refill [facility] [address] [place] [address] Diamond Blake MD [address] [place] [address] Social History Tobacco Use Types Packs/Day Years Used Date Smoking Tobacco: Never Smokeless Tobacco: Never Alcohol Use Standard Drinks/Week Comments Never 0 (1 standard drink = 0.6 oz pur e alcohol) Depression Answer Date Recorded Patient Health Questionnaire-9 Score 12 10/07/2023 Patient Health Questionnaire-9 Score 12 10/07/2023 Last PHQ-9: Questionnaire Data Not on file 1 12/08/2022 Housing Stability Answer Date Recorded What is [...] Date Recorded Patient Health Questionnaire-2 Score 3 10/07/2023 Comments No Sex and Gender Information Value [...] Description 01/24/2025 9:15 AM EDT Office Visit [facility] MEDICINE [address] [place] [address] Wanda Hough CNM [address] [place] [address] documented as of this encounter Visit Diagnoses Not on filedocumented in this encounter Additional Health Concerns Assessment Noted Time PHQ-9 Depression Total Score: 12 023 11:15 AM EST documented as of this encounter Care Teams Barrel Roller Operator Relationship Specialty Start Date End Date Diamond Blake MD [address] [place] [phone] PCP - General Internal Medicine 06/30/23 Zechariah Bradley Vice InvestigatorDirector Of Maintenance 03/23/24 documented as of this encounter
--- OUTSIDE RECORDS SUMMARY | 2024-12-16 11:03 | XMS_ITS | Encounter Summary ---
Author Organization [employer] Address [address] [facility] 7t [place] [address] Care Team Providers Care Risk Manager Name Role Phone Diamond Blake MD Primary Care Pro vider Reason for Visit * Reason Comments Med Refill Encounter Details Date Type Department Care Team (Late st Contact Info) Description 10/24/2024 Refill [facility] MEDICINE [address] [place] [address] Diamond Blake MD [address] [place] [address] Social History Tobacco Use Types Packs/Day Years [...] Description 01/24/2025 9:15 AM EDT Office Visit [facility] MEDICINE [address] [place] [address] Wanda Hough CNM [address] [place] [address] documented as of this encounter Visit Diagnoses Not on filedocumented in this encounter Additional Health Concerns Assessment Noted Time PHQ-9 Depression Total Score: 14 024 9:42 AM EDT documented as of this encounter Care Teams Risk Manager Relationship Specialty Start Date End Date Diamond Blake MD [address] [place] [address] PCP - General Internal Medicine 06/30/23 Zechariah Bradley Gas Appliance MechanicDragline Oiler 03/23/24 documented as of this encounter
--- OUTSIDE RECORDS SUMMARY | 2024-12-16 11:03 | XMS_ITS | Encounter Summary ---
Author Organization [employer] Address [address] [place] [address] 7t [place] [address] Care Team Providers Care Insurance Follow Up Representative Name Role Phone Diamond Blake MD Primary Care Pro vider Reason for Visit * Reason Onset Date Comments Med Refill 07/07/2023 Encounter Details Date Type Department Care Team (Late st Contact Info) Description 07/07/2023 Refill [facility] MED & PEDS [address] [place] [address] Lay Avila MD [address] [place] [address] Social History Tobacco Use Types Packs/Day Years [...] Description 01/24/2025 9:15 AM EDT Office Visit [facility] MEDICINE [address] [place] [address] Wanda Hough CNM [address] [place] [address] documented as of this encounter Visit Diagnoses Not on filedocumented in this encounter Additional Health Concerns Assessment Noted Time PHQ-9 Depression Total Score: 15 12/12/ 023 2:22 PM EST documented as of this encounter Care Teams Insurance Follow Up Representative Relationship Specialty Start Date End Date Diamond Blake MD [address] [place] [address] PCP - General Internal Medicine 06/30/23 Zechariah Bradley Fish And Game WardenPathology Laboratory Director 03/23/24 documented as of this encounter
--- OUTSIDE RECORDS SUMMARY | 2024-12-16 11:03 | XMS_ITS | Encounter Summary ---
Author Organization [employer] Address [address] 7t [place] [address] Care Team Providers Care Apparel Cutter Name Role Phone Diamond Blake MD Primary Care Pro vider Reason for Visit * Reason Onset Date Comments Med Refill 07/07/2023 Encounter Details Date Type Department Care Team (Late st Contact Info) Description 07/07/2023 Refill [facility] [address] [place] [address] Otoniel Bella MD [address] [place] [address] Chronic pain of both knees; Acute pain [...] Description 01/24/2025 9:15 AM EDT Office Visit [facility] MEDICINE [address] [place] [address] Wanda Hough CNM [address] [place] [address] documented as of this encounter Visit Diagnoses Diagnosis Chronic pain of both knees Acute pain of left shoulder documented in this encounter Additional Health Concerns Assessment Noted Time PHQ-9 Depression Total Score: 15 12/12/ 023 2:22 PM EST documented as of this encounter Care Teams Apparel Cutter Relationship Specialty Start Date End Date Diamond Blake MD [address] [place] [address] PCP - General Internal Medicine 06/30/23 Zechariah Bradley Career CoordinatorCircuit Tester 03/23/24 documented as of this encounter
--- OUTSIDE RECORDS SUMMARY | 2024-12-16 11:03 | XMS_ITS | Encounter Summary ---
Author Organization [employer] Address [address] [facility] [address]t [place] [address] Care Team Providers Care Catalyst Recovery Operator Name Role Phone Kailash Trevizo Primary Care Provider Unavail able Diamond Blake MD Primary Care Pro vider Reason for Visit * Reason Comments Med Refill Encounter Details Date Type Department Care Team (Late st Contact Info) Description 02/11/2023 Refill [facility] [address] [place] [address] Otoniel Bella MD [address] [place] [address] Chronic pain of both knees; Acute pain [...] Description 01/24/2025 9:15 AM EDT Office Visit [facility] MEDICINE [address] [place] [address] Wanda Hough CNM [address] [place] [address] documented as of this encounter Visit Diagnoses Diagnosis Chronic pain of both knees Acute pain of left shoulder documented in this encounter Additional Health Concerns Assessment Noted Time PHQ-9 Depression Total Score: 15 12/12/ 023 2:22 PM EST documented as of this encounter Care Teams Catalyst Recovery Operator Relationship Specialty Start Date End Date Kailash Trevizo AGNP PCP - General Family Medicine 11/13/22 06/29/23 Diamond Blake MD [address] [place] [address] PCP - General Internal Medicine 06/30/23 Zechariah Bradley Middle School DirectorPrincipal Software Architect 03/23/24 documented as of this encounter
--- OUTSIDE RECORDS SUMMARY | 2024-12-16 11:04 | XMS_ITS | Encounter Summary ---
Author Organization [employer] [facility] Address [address] [place] [address] 7t [place] [address] Care Team Providers Care Dehairer Name Role Phone Diamond Blake MD Primary Care Pro vider Reason for Visit * Reason Onset Date Comments Med Refill 07/07/2023 Encounter Details Date Type Department Care Team (Late Contact Info) Description 07/07/2023 Refill [facility] MEDICINE [address] [place] [address] Kailash Trevizo AGNP Severe chronic obstructive pulmonary disease (CMS/HCC); Hypertension, unspecified type; Hyperlipidemia, unspecified hyperlipidemia type Social History Tobacco Use Types Packs/Day [...] Encounters Date Type Department Care Team (Late Contact Info) Description 01/24/2025 9:15 AM EDT Office Visit [facility] MEDICINE [address] [place], [place] [phone] Wanda Hough CNM [address] [place], [place] [phone] documented as of this encounter Visit Diagnoses Diagnosis Severe chronic obstructive pulmonary disease (CMS/HCC) Chronic airway obstruction, not elsewhere classified Hypertension, unspecified type Hyperlipidemia, unspecified hyperlipidemia type documented in this encounter Additional Health Concerns Assessment Noted Time PHQ-9 Depression Total Score: 15 023 2:22 PM EST documented as of this encounter Care Teams Dehairer Relationship Specialty Start Date End Date Diamond Blake MD [address] [place] [id number] PCP - General Internal Medicine 06/30/23 Zechariah Bradley Broach OperatorNeedle Valve Operator 03/23/24 documented as of this encounter
--- OUTSIDE RECORDS SUMMARY | 2024-12-16 11:04 | XMS_ITS | Encounter Summary ---
Author Organization [employer] Address [address] [place] [address] 7t [place] [address] Care Team Providers Care Legal Document Assistant Name Role Phone Diamond Blake MD Primary Care Pro vider Reason for Visit * Reason Onset Date Comments Med Refill 07/07/2023 Encounter Details Date Type Department Care Team (Late st Contact Info) Description 07/07/2023 Refill [facility] CHC MED & PEDS [address] [place] [address] Lay Avila MD [address] [place] [address] Social History Tobacco Use Types Packs/Day Years [...] Description 01/24/2025 9:15 AM EDT Office Visit [facility] MEDICINE [address] [place] [address] Wanda Hough CNM [address] [place] [address] documented as of this encounter Visit Diagnoses Not on filedocumented in this encounter Additional Health Concerns Assessment Noted Time PHQ-9 Depression Total Score: 15 12/12/ 023 2:22 PM EST documented as of this encounter Care Teams Legal Document Assistant Relationship Specialty Start Date End Date Diamond Blake MD [address] [place] [address] PCP - General Internal Medicine 06/30/23 Zechariah Bradley [employer] DeanBush And Vine Farmer Fruit Crops 03/23/24 documented as of this encounter
--- OUTSIDE RECORDS SUMMARY | 2024-12-16 11:04 | XMS_ITS | Clinical Summary ---
Author Organization [employer] Address [address] [facility] [address] [place] [address] Care Team Providers Care Plasterer Maintenance Name Role Phone Diamond Blake MD Primary Care Pro vider Allergies No known active allergies Medications ipratropium-albu terol (Duo-Neb) 0.5-2.5 mg/3 mL nebulizer solution Inhale 3 mL every 6 (six) hours. 022 Active Blood Pressure kitIndications:H ypertension, unspecified type 1 kit 2 times daily. 1 kit 023 Active calcium citrate 250 MG tablet TAKE 2 TABLETS BY MOUTH TWICE DAILY 023 Active EPINEPHrine (Epipen) 0.3 MG/0.3ML injection syringe INJECT 1 PEN INTRAMUSCULARLY EVERY 10 MINUTES NEEDED FOR ANAPHYLAXIS FOR UP TO 2 DOSES AND CALL 911 023 Active Trelegy Ellipta 200-62.5-25 MCG/ACT aerosol powder INHALE 1 PUFF EVERY DAY AT THE SAME TIME 023 Active loratadine (Claritin) 10 MG tablet TAKE 1 TABLET BY MOUTH EVERY DAY 023 Active acetaminophen (Tylenol) 500 MG tabletIndication s:Chronic pain of both knees,Acute pain of left shoulder TAKE 2 TABLETS BY MOUTH EVERY 6 HOURS IF NEEDED FOR MODERATE PAIN OR FEVER 50 tablet 023 Active albuterol (2.5 MG/3ML) 0.083% nebulizer solution INHALE 1 AMPULE USING A NEBULIZER EVERY 4 TO 6 HOURS NEEDED SHORTNESS OF BREATH OR FOR WHEEZING 023 Active sertraline (Zoloft) 25 MG tablet TAKE 1 TABLET BY MOUTH EVERY MORNING 023 Active Blood Pressure Monitor kit 1 kit in the morning. 1 kit 023 Active D3 Super Strength 50 MCG (2000 UT) capsule TAKE 1 CAPSULE BY MOUTH EVERY MORNING 90 capsule 1 024 Active atorvastatin (Lipitor) 10 MG tabletIndication s:Hyperlipidemia , unspecified hyperlipidemia type Take 1 tablet (10 mg) by mouth Once per day. 90 tablet 024 Active albuterol (Ventolin HFA) 108 (90 Base) MCG/ACT inhaler INHALE 2 PUFFS BY MOUTH EVERY 4 HOURS NEEDED 18 g 1 024 Active lidocaine (Lidoderm) 5 % patchIndications :Chronic pain of both knees,Acute pain of left shoulder APPLY 1 PATCH TOPICALLY TO SKIN, LEAVE ON FOR 12 HOURS AND OFF FOR 12 HOURS DIRECTED 30 patch 2 024 Active levothyroxine (Synthroid, Levoxyl) 125 MCG tabletIndication s:Hypothyroidism , unspecified type Take 1 tablet (125 mcg) by mouth before breakfast. 90 tablet 024 Active montelukast (Singulair) 10 MG tabletIndication s:Severe chronic obstructive pulmonary disease (CMS/HCC) TAKE 1 TABLET BY MOUTH EVERY EVENING 90 tablet 1 024 Active metFORMIN XR (Glucophage-XR) 500 MG 24 hr tablet TAKE 1 TABLET BY MOUTH EVERY EVENING WITH FOOD 90 tablet 024 Active hydroCHLOROthiaz ricarda (HYDRODiuril) 25 MG tabletIndication s:Hypertension, unspecified type TAKE 1 TABLET BY MOUTH EVERY MORNING 90 tablet 1 025 Active donepezil (Aricept) 10 MG tablet TAKE 1 TABLET BY MOUTH AT BEDTIME 90 tablet 025 Active ammonium lactate (Amlactin) 12 % creamIndications :Venous stasis dermatitis of both lower extremities APPLY TOPICALLY TO THE AFFECTED AREA(S) EVERY DAY NEEDED DRY SKIN 385 g 3 025 Active Tirzepatide-Weig ht Management (Zepbound) 5 MG/0.5ML solution auto-injector Inject 0.5 mL (5 mg) under the skin 1 (one) time per week. 2 mL 025 2024 Active Tirzepatide-Weig ht Management (Zepbound) 5 MG/0.5ML solution auto-injector Inject 0.5 mL (5 mg) under the skin 1 (one) time per week. 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 She will follow up in 2 months I requested that she brings her mediactions in with her; she agreed to this. I also put a med management referral in to the pharmacy for a reconciliation and med box. She mentioned that she felt unsafe in her new apartment. We had the [facility] department come up and talk with her. They recommended a referral to care management. Referral placed. PHQ: 0 STI: reports no partner at this time. Pap: Last memory was in [place], approximately 5 years ago. Substance use: Denies smoking, drug use, etoh Lipids: Component Ref Range & Units 1 mo ago 6 mo ago 1 yr ago Cholesterol, Total <200 mg/dL 270 High 241 High 226 High HDL Cholesterol > OR = 50 mg/dL 66 63 57 Triglycerides <150 mg/dL 227 High 142 174 High Colonoscopy: Reports having GI appointment for colonoscopy coming up shortly cant remember date. Eye exam: Sees [facility] eye care. Dental home: Had [facility] dental appointment that she missed. She is now going to [facility] dentist. Localized swelling of both lower extremities Class 3 severe obesity due t o excess calories with body mass index (BMI) of 40.0 to 44.9 in adult 12/12/2022 Venous stasis dermatitis of both lower extremiti es 12/12/2022 Vascular insufficiency 12/12/2022 Assessment & Plan (12/26/2022 1:15 PM EST): Referral to vascular surgery. HTN (hypertension) 11/13/2022 Assessment & Plan (05/20/2023 11:10 AM EDT): BP 142/74 before leaving clinic. Instruct patient to check BP twice a day and return to clinic in two weeks. Patient has BP cuff at home. Assessment & Plan (04/10/2023 10:28 AM EDT): Patient within JNC-8 guidelines for age. No changes to medication today. Counseled low-salt diet, advised increase in exercise to 30 min/ day most days, weight loss if applicable. Assessment & Plan (02/25/2023 10:34 AM EDT): Patients blood pressure is well managed. Patient continue current therapies. Continue to monitor BP at home. No medication alterations recommended today. Assessment & Plan (12/26/2022 1:16 PM EST): Blood pressure is well managed. Patient to continue current therapies. Patient to continue home monitoring BP. F/up 1 month for BP, A1C and hyperlipidemia. Assessment & Plan (12/12/2022 4:46 PM EST): Blood pressure readings from home look acceptable. Due to possible dysfunction of patients BP cuff I ordered her a new one and instructed her to monitor her BP again for 2 weeks and return with the BP log and the new BP kit. Calcium renal calculus 06/23/2018 Multiple nodules of lung 01/11/2018 Thyroid nodule 11/12/2017 Severe chronic obstructive pulmonary disease Primary hyperparathyroidism 05/04/2017 Acquired hypothyroidism 04/17/2017 Assessment & Plan (06/04/2023 2:31 PM EDT): Component Ref Range & Units 3 d ago Free T4 (Free Thyroxine) 0.71 - 1.85 ng/dL 0.97 Patient taking Synthroid as directed. Assessment & Plan (04/10/2023 10:33 AM EDT): Component Ref Range & Units 1 mo ago TSH w/Reflex to FT4 0.40 - 4.50 mIU/L 7.65??High?? Component Ref Range & Units 1 mo ago T4, Free 0.8 - 1.8 ng/dL 1.2 Patient currently taking levothyroxine 200 mcg tab once daily. No medications changes recommended. Hyperlipidemia 04/17/2017 Assessment & Plan (05/20/2023 12:44 PM EDT): Patient started atorvastatin 04/10/23: ordering cmp Assessment & Plan (04/10/2023 11:22 AM EDT): Component Ref Range & Units 1 mo ago 6 mo ago 1 yr ago Cholesterol, Total <200 mg/dL 270??High?? 241??High?? 226??High?? HDL Cholesterol > OR = 50 mg/dL 66 63 57 Triglycerides <150 mg/dL 227??High?? 142 174??High?? Comment: ?? If a non-fasting specimen was collected, consider repeat triglyceride testing on a fasting specimen if clinically indicated. Aidee et al. J. of Clin. Lipidol. 2015;9:129-169. ?? LDL Cholesterol mg/dL (calc) 166??High?? 151??High?? CM 138??High?? CM Comment: Reference range: <100 ?? Desirable range <100 mg/dL for primary prevention; ?? <70 mg/dL for patients with CHD or diabetic patients with > or = 2 CHD risk factors. ?? LDL-C is now calculated using the Eb-Natasha calculation, which is a validated novel method providing better accuracy than the Friedewald equation in the estimation of LDL-C. Eb SS et al. [place]. 2013;310(19): 6219-0635 (http://education.Orthobond/faq/UCM600) Chol/HDLC Ratio <5.0 (calc) 4.1 3.8 4.0 Non-HDL Cholesterol <130 mg/dL (calc) 204??High?? 178??High?? CM 169??High?? CM The 10-year ASCVD risk score (Jillian PAREKH, et al., 2019) is: 6.2% Values used to calculate the score: Age: 62 years Sex: Female Is Non- : No Diabetic: No Tobacco smoker: No Systolic Blood Pressure: 144 mmHg Is BP treated: No HDL Cholesterol: 66 mg/dL Total Cholesterol: 270 mg/dL Patients triglycerides and LDL are trending in a negative direction. ASCVD risk 6.2%. Prescribing atorvastatin 10 mg. She will follow up in 2 months. Will repeat lipid panel and order BMP. Assessment & Plan (02/25/2023 10:38 AM EDT): Lipids were previously elevated Component Ref Range & Units 5 mo ago 1 yr ago Cholesterol, Total <200 mg/dL 241??High?? 226??High?? HDL Cholesterol > OR = 50 mg/dL 63 57 Triglycerides <150 mg/dL 142 174??High?? LDL Cholesterol mg/dL (calc) 151??High?? 138??High?? CM Comment: Reference range: <100 ?? Patient has had active lipid panel order since 12/26, reminded patient of active lab orders. She seemed confused and said she went to get them drawn before. I went down to the lab with her to see if there was an error. The manager labor relations was able to find the lab orders. I discussed with patient if there was an issue with her blood work someone would contact her to set up and appointment. Osteopenia 04/17/2017 Vitamin D deficiency 04/17/2017 Resolved Problems Problem Noted Date Diagnosed Date Resolved Date Black tongue 08/18/2023 10/09/2023 Anemia 04/17/2017 08/18/2023 Encounters Date Type Department Care Team Description 12/01/2024 Travel 11/30/2024 Refill [facility] [address] [place], [place] [phone] Diamond Blake MD 11/02/2024 Telephone [facility] [address] [place] [address] Diamond Blake MD Care Coordination (ICP care plan) 11/02/2024 Patient Outreach [facility] [address] [place] [address] Diamond Blake MD 10/29/2024 Refill [facility] [address] [facility] [place] [address] Diamond Blake MD Venous stasis dermatitis of both lower extremities 10/25/2024 Refill [facility] [address] [facility] [place] [address] Sultana Parra RN Hypertension, unspecified type 10/25/2024 Refill [facility] [address] [facility], [place] [phone] Diamond Blake MD Hypertension, unspecified type 10/24/2024 Refill [facility] [address] [facility] [place] [address] Diamond Blake MD 10/21/2024 Refill [facility] [address] [facility] [place] [address] Diamond Blake MD 10/17/2024 10:30 AM EST Clinical Support [facility] [address] [place], [place] [phone] Michelle Avendaño RD Hypertension, essential (Primary Dx); Obesity due to excess calories, unspecified obesity severity 10/17/2024 Travel 10/10/2024 Refill [facility] [address] [facility] [place] [address] Zaida Christy MD 09/21/2024 Refill [facility] [address] [place] [address] Diamond Blake MD Severe chronic obstructive pulmonary disease (CMS/HCC) 09/20/2024 Orders Only [facility] External Provider, [facility] 09/19/2024 Telephone [facility] [address] [place] [address] Diamond Blake MD from Last 3 Months Immunizations Name Administration Dates Next Due Influenza injectable quadriv alent IIV4 with preservative 07/21/2018,09/30/2017 Influenza injectable quadriv alent preservative free 08/18/2023,12/02/2021,08/29/2020,2018 Influenza, seasonal, injecta ble, preservative free 08/30/2024,08/02/2024 Pfizer Covid-19 Vaccine 12+ 08/30/2024, 4,12/30/2023 Pneumococcal Conjugate PCV 20 08/18/2023 RSV Bivalent 12/30/2023 Tdap 04/17/2017 Zoster, Recombinant 05/16/2022,02/17/2022 Family History Medical History Relation Name Comments HTN,asthma Mother Relation Name Status Comments Father Mother Social History Tobacco Use Types Packs/Day Years Used Date Smoking Tobacco: Never Smokeless Tobacco: Never Tobacco Cessation:Counseling Given: Not Answered Alcohol Use Standard Drinks/Week Comments Never 0 [...] Orientation Straight 08/18/2022 10 :31 AM EDT Last Filed Vital Signs Vital Sign Reading Time Taken Comments Blood Pressure 112/68 09/05/2024 9:07 AM EST Pulse 71 08/30/2024 9:04 AM EST Temperature 36.5 ??C (97.7 ??F) 08/30/2024 9:04 AM ES T Respiratory Rate 20 08/30/2024 9:04 AM EST Oxygen Saturation 98% 08/30/2024 9:04 AM EST Inhaled Oxygen Concentration - - Weight 94.6 kg (208 lb 9.6 oz) 10/17/2024 2:48 P M EST Height 157.5 cm (5' 2 ) 10/17/2024 2:48 PM EST Body Mass Index 38.15 10/17/2024 2:48 PM EST Plan of Treatment Upcoming Encounters Date Type Department Care Team (Late st Contact Info) Description 01/24/2025 9:15 AM EDT Office Visit [facility] [address] [place] [address] Alyce Gallo, GONZALEZ [address] [place] [address] Health Maintenance Due Date Last Done Comments CT Colonography 1960 FIT DNA/Cologuard 1960 FIT 1960 FOBT 1960 Sigmoidoscopy 1960 SDOH Screening 12/20/2024 12/21/2023 Mammogram 01/04/2025 01/05/2024, 12/17, 12/27/2021, Additional history exists Dental Oral Exam 01/28/2025 07/29/2024, , 03/30/2019, Additional history exists Dental Prophylaxis 01/28/2025 07/29/2024, 05/01/2023 Depression Monitoring (PHQ-9) 02/27/2025 08/30/2024, 04/27/2024 Colonoscopy 07/21/2025 07/21/2023 Colorectal Cancer Screening 07/21/2025 Dental X-Ray: Bitewings 07/30/2025 07/29/20 24, 05/01/2023, 12/10/2017 Alcohol/Substance Use Screening 08/30/2025 08/30/2024 Depression Screening 08/30/2025 08/30/2024, 04/27/20 24 Diabetes: Hemoglobin A1C 09/05/2025 024, 02/19/2024, 08/28/2023, Additional history exists Tobacco Screening 09/05/2025 09/05/2024 Dental X-Ray: Full Mouth 05/02/2026 023, 12/10/2017, 11/17/2017 Pap Smear 01/27/2027 01/28/2024 DTaP/Tdap/Td Vaccines (2 - Td or Tdap) 04/17/2027 04/17/2017 Cervical Cancer Screening 01/27/2029 HPV/Cotest 01/27/2029 01/28/2024 Lipid Panel 09/05/2029 09/05/2024, 05/0 12/2023, 08/28/2023, Additional history exists Zoster Vaccines Completed 05/16/2022, 02/17/2022 Pneumococcal Vaccine: 50+ Years Completed 08/18/2023 Hepatitis C Screening Completed 08/28/2023, 023 RSV Patients and Patients Aged 60 years or older Completed 12/30/2023 COVID-19 Vaccine Completed 08/30/2024, , 12/30/2023, Additional history exists Influenza Vaccine Completed 08/30/2024, , 08/18/2023, Additional history exists HIB Vaccines Aged Out No longer eligi ble based on patient's age to complete this topic HPV Vaccines Aged Out No longer eligi ble based on patient's age to complete this topic Hepatitis A Vaccines Aged Out No long er eligible based on patient's age to complete this topic Hepatitis B Vaccines Aged Out No long er eligible based on patient's age to complete this topic IPV Vaccines Aged Out No longer eligi ble based on patient's age to complete this topic Meningococcal Vaccine Aged Out No gladys juan eligible based on patient's age to complete this topic RSV under 20 months Aged Out No longe r eligible based on patient's age to complete this topic Rotavirus Vaccines Aged Out No longer eligible based on patient's age to complete this topic Procedures Procedure Name Priority Date/Time Associated Diagnosis Comments CT UROGRAM WO CONTRAST Routine 8:38 AM EST HEMOGLOBIN A1C Routine 09/05/2024 8:25 AM EST Annual physical exam LIPID PANEL, STANDARD Routine 09/05/2024 8:25 AM EST Annual physical exam PROPHYLAXIS - ADULT Routine 07/29/2024 1 0:00 AM EDT Dental plaque Dental calculus BITEWINGS - 4 RADIOGRAPHIC IMAGES Routine 07/29/2024 10:00 AM EDT PERIODIC ORAL EVALUATION - ESTABLISHED PATIENT Routine 07/29/2024 10:00 AM EDT HPV MRNA E6/E7 REFLEX TO HPV 16, 18/45 Routine 01/28/2024 11:09 AM EDT PAP SMEAR Routine 01/28/2024 11:09 AM EDT Cervical cancer screening BI MAMMOGRAM SCREENING TOMOSYNTHESIS BILATERAL Routine 01/05/2024 10:40 AM EDT HEPATITIS C AB W/REFL TO HCV RNA, QN, PCR Routine 08/28/2023 9:03 AM EST Annual physical exam HM COLONOSCOPY Routine 07/21/2023 INTRAORAL - COMPLETE SERIES OF RADIOGRAPHIC IMAGES Routine 05/01/2023 2:00 PM EDT from Last 3 Months or Most Recently Relevant to Health Maintenance Results * CT Urogram w/o Contrast (09/20/2024 8:38 AM EST) Anatomical Region Laterality Modality Ureter, Upper urinary tract Comp uted Tomography 09/20/2024 8:38 AM EST Narrative 11/04/2024 3:08 PM EST ? [facility] [place] [facility] ?[address] ?[place] [address] ? CT Scan Report ? Signed ? Patient: [facility],Yeni ?MR#: ?? [id number] ? : 1960 ?Acct:[id number] ? Age/Sex: 63 / F ?ADM Date: 09/20/24 ? Loc: HO.CT ? Attending Dr: Zeina SANTOS ? Ordering Physician: Zeina Ribeiro ?? Date of Service: 09/20/24 ?? Procedure(s): CT urogram ?? Accession Number(s): [id number] ? cc: Diamond Diaz MD; Zeina Ribeiro ? Report Number: ?? [id number]: Total DLP = ??947.00 mGy-cm ?? EXAMINATION: ?? CT ABDOMEN AND PELVIS WITHOUT AND WITH CONTRAST ? CLINICAL INFORMATION: ?? Gross image ? COMPARISON: ?? None available. ? TECHNIQUE: ?? Noncontrast CT of the abdomen and pelvis is performed followed by split ?? bolus contrast-enhanced images using 85 mL Omnipaque 350 contrast. ? Postcontrast imaging is performed during the combined nephrogram and ?? excretion phase. Sagittal and coronal reformatted images were obtained ?? on the technologist's workstation for both the precontrast and ?? postcontrast phases. DLP 947 ? This CT examination was performed using dose optimization techniques as ?? appropriate, variously including the following: ?? *Automated exposure control ?? *Adjustment of mA and/or kV according to patient size (this includes ?? techniques or standardized protocols for targeted exams where dose is ?? matched to indication/reason for exam; i.e. extremities or head) ?? *Use of iterative reconstruction technique ? FINDINGS: ? LUNG BASES: The visualized lung bases are unremarkable. ? LIVER, GALLBLADDER, AND BILIARY TREE: There are multiple hypodense ?? nonenhancing lesions in the right hepatic lobe largest measuring 1.6 cm ?? segment 8. They measure fluid density. The gallbladder is unremarkable ?? with no evidence of radiopaque gallstones, gallbladder wall thickening, ?? or obvious pericholecystic inflammatory changes. ? PANCREAS: Unremarkable. ? SPLEEN: Unremarkable. ? ADRENAL GLANDS: Unremarkable. ? KIDNEYS AND URETERS: The kidneys are normal in size, shape, and ?? attenuation except for focal cortical scarring mid pole lateral cortex ?? right kidney. There are nonobstructive 2 mm radiopaque calculi lower ?? pole calyx left kidney. There is no perinephric stranding. Post ?? contrast there is normal cortical thickness and enhancement with 1.2 cm ?? hypodensity mid pole cortex right kidney measuring cyst density . There ?? is good opacification of bilateral kidney pelvises and proximal and mid ?? ureters. The entire left ureter is visualized and is of normal caliber. ?? No obstruction narrowing seen in the left ureter. ? BLADDER: Unremarkable. ? GASTROINTESTINAL TRACT: There is scattered stool, gas and diverticuli ?? in colon without distention. The small bowel loops are normal caliber. ?? Appendix is normal caliber. No free air or free fluid seen. There is no ?? inflammatory process. ? ABDOMINAL WALL: There is small ??umbilical hernia containing fat. ? LYMPH NODES: Normal. ? VASCULAR: Unremarkable. ? PELVIC VISCERA: Unremarkable. ? OSSEUS STRUCTURES: Mild degenerative disc changes with vacuum disc ?? phenomena L5-S1 disc level. ??There is mild levoscoliosis ? CT/CT urogram ?? IMPRESSION: ?? Moderate diverticulosis without diverticulitis. ? 2 mm nonobstructive radiopaque calculi lower pole calyx left kidney. ? Electronically signed by: ??Christiano Meng MD ??11/04/2024 03:06 PM EST RP ? Dictated By: ?Yusra,Christiano S MD ? Signed By: ?<Electronically signed by Christiano S Yusra, MD in OV> ?11/04/24 1506 ? DD/ 0838 ? TD/TT: 09/20/24 0903 ? Professor Of French: MSM ? Procedure Note Torey, Image - 11/04/[address] [address] [address] Scan Report Signed Patient: Diamond Grider EMR#: [id number] : 1960Acct:[id number] Age/Sex: 63 / FADM Date: 09/20/24 Loc: HO.CT Attending Dr: Zeina SANTOS Ordering Physician: Zeina Ribeiro Date of Service: 09/20/24 Procedure(s): CT urogram Accession Number(s): [id number] cc: Diamond Diaz MD; [facility] Report Number: [id number]: Total DLP = 947.00 mGy-cm EXAMINATION: CT ABDOMEN AND PELVIS WITHOUT AND WITH CONTRAST CLINICAL INFORMATION: Gross image COMPARISON: None available. TECHNIQUE: Noncontrast CT of the abdomen and pelvis is performed followed by split bolus contrast-enhanced images using 85 mL Omnipaque 350 contrast. Postcontrast imaging is performed during the combined nephrogram and excretion phase. Sagittal and coronal reformatted images were obtained on the technologist's workstation for both the precontrast and postcontrast phases. DLP [address] examination was performed using dose optimization techniques as appropriate, variously including the following: *Automated exposure control *Adjustment of mA and/or kV according to patient size (this includes techniques or standardized protocols for targeted exams where dose is matched to indication/reason for exam; i.e. extremities or head) *Use of iterative reconstruction technique FINDINGS: LUNG BASES: The visualized lung bases are unremarkable. LIVER, GALLBLADDER, AND BILIARY TREE: There are multiple hypodense nonenhancing lesions in the right hepatic lobe largest measuring 1.6 cm segment 8. They measure fluid density. The gallbladder is unremarkable with no evidence of radiopaque gallstones, gallbladder wall thickening, or obvious pericholecystic inflammatory changes. PANCREAS: Unremarkable. SPLEEN: Unremarkable. ADRENAL GLANDS: Unremarkable. KIDNEYS AND URETERS: The kidneys are normal in size, shape, and attenuation except for focal cortical scarring mid pole lateral cortex right kidney. There are nonobstructive 2 mm radiopaque calculi lower pole calyx left kidney. There is no perinephric stranding. Post contrast there is normal cortical thickness and enhancement with 1.2 cm hypodensity mid pole cortex right kidney measuring cyst density . There is good opacification of bilateral kidney pelvises and proximal and mid ureters. The entire left ureter is visualized and is of normal caliber. No obstruction narrowing seen in the left ureter. BLADDER: Unremarkable. GASTROINTESTINAL TRACT: There is scattered stool, gas and diverticuli in colon without distention. The small bowel loops are normal caliber. Appendix is normal caliber. No free air or free fluid seen. There is no inflammatory process. ABDOMINAL WALL: There is small umbilical hernia containing fat. LYMPH NODES: Normal. VASCULAR: Unremarkable. PELVIC VISCERA: Unremarkable. OSSEUS STRUCTURES: Mild degenerative disc changes with vacuum disc phenomena L5-S1 disc level. There is mild levoscoliosis CT/CT urogram IMPRESSION: Moderate diverticulosis without diverticulitis. 2 mm nonobstructive radiopaque calculi lower pole calyx left kidney. Electronically signed by: Christiano Meng MD 11/04/2024 03:06 PM EST Dictated By: Christiano Meng MD Signed By: <Electronically signed by Christiano Meng MD in OV> 11/04/24 1506 DD/ 0838 TD/TT: 09/20/24 0903 Professor Of French: RASTA [facility] External Provider IMG CT PROCEDURES Edited Result - Final * Hemoglobin A1c (09/05/2024 8:25 AM EST) Hemoglobin A1c 5.7 <6.0 % [facility] Comment:Hemoglobin A1C Refer ence Range Adults: 4.8 - 6.0 % Non diabetic: < 6.0 % Goal: < 7.0 %Additional Action Suggested: > 8.0 %Note: Hemoglobin A1c results are invalid for patients with abnormal amounts of HbF. Blood transfusions may impact the HbA1c concentration in the patient sample. Estimated Average Glucose 117 mg/dL [facility] Comment:eAG = Estimated ave rage glucose which is %A1C expressed asaverage glucose, using the formula of the G3B-VfusrowUlhbvyz Glucose study (ADAG), Diabetes Care, Vol.31,#8,May. 2007 Blood Venous blood specimen / Unknown 09/05/2024 8:25 AM EST 09/05/2024 11:36 AM EST Diamond Barry MD LAB BLOOD ORDERAB LES Final Result Performing Organization Address [facility] Co de Phone Number [facility] [address] [place] [address] [phone] * Lipid Panel, Standard (09/05/2024 8:25 AM EST) Triglycerides 134 <150 mg/dL [facility] Comment:Desirable Triglyceri de: less than 150 mg/dLBorderline High Triglyceride 150-199 mg/dLHigh Triglyceride: 200-499 mg/dLVery High Triglyceride: greater than or equal to 5OO mg/dL Cholesterol 152 <200 mg/dL [facility] Comment:Desirable Cholestero l: less than 200 mg/dLBorderline High Cholesterol: 200-239 mg/dLHigh Cholesterol: greater than 239 mg/dL LDL Cholesterol Calculated 70 <100 mg/dL [facility] Comment:Desirable LDL: less than 100 mg/dLNear Optimal/Above Optimal LDL: 110- 129 mg/dLBorderline High LDL: 130-159 mg/dLHigh LDL: 160-189 mg/dLVery High LDL: greater than or equal to 190 mg/dL HDL Cholesterol 56 >40 mg/dL [facility] Comment:Desirable HDL: great er than 40 mg/dL Note: This HDL assay may give artificially low results in patients with liver disease. Blood Venous blood specimen / Unknown 09/05/2024 8:25 AM EST 09/05/2024 11:36 AM EST us Diamond Barry MD LAB BLOOD ORDERAB LES Final Result Performing Organization Address City/[facility]/ZIP Co de Phone Number [facility] [address] [place] [address] [phone] * HPV mRNA E6/E7 w/Reflex to HPV Genotypes 16, 18/45 (01/28/2024 11:09 AM EDT) HPV nRNA E6/E7 Not Detected Not Detected [facility] Comment:Methodology: Transcr iption-Mediated AmplificationThis assay detects E6/E7 viral messenger RNA (mRNA) from 14high-risk HPV types (16,18,31,33,35,39,45,51,52,56,58,59,66,68).Cervical sources are required for HPV testing.If a vaginal source from a patient who has had atotal hysterectomy with removal of cervix wassubmitted, please contact the testing laboratoryfor alternative testing options.For additional information, please refer tohttp://education.ImpulseFlyer/faq/IKX514v8(This link if provided for information/educational purposes only.)THIS TEST WAS PERFORMED AT:[facility] [place] [id number] CHANG MD HPV mRNA E6/E7 [facility] HPV 16 RNA [facility] HPV 18/45 RNA [facility] 01/28/2024 11:0 9 AM EDT 02/02/2024 12:00 PM EDT Alyce Gallo [facility] LAB CYTOLOGY ORDERABLES F inal Result [facility] [address], [place] [phone] * Pap Smear (01/28/2024 11:09 AM EDT) Swab Cervix uteri structure / Unknown 01/28/2024 11:09 AM EDT 02/02/2024 12:00 PM EDT Narrative [facility] - 02/17/2024 6:59 AM EDT ----- ------- Name: Diamond Grider ? Age/Sex: 63/F ? : 1960 Unit#: [id number] ?? Attend Dr: ALYCE GALLO CNM ?Re01/28/24 ?Status: DEP REF ? Location: HO.HHCLNP ? Disch: ? ----- ------- SPEC : [id number] ? RECD: 02/02/24-1200 ? STATUS: ??SOUT ? REQ NUM: [id number] ? SELENE: 01/28/24-1109 ? SUBM DR: ALYCE GALLO CNM ? ENTERED: ??02/02/24-1244 ?SP TYPE: Pap Smr ?OTHR DR: ? ORDERED: ??Pap Smear ? Interpretation ?? Satisfactory for evaluation. ?? Atrophic. ?? Negative for intraepithelial lesion or malignancy. ?HPV mRNA E6/E7: ?NOT DETECTED ? This assay detects E6/E7 viral messenger RNA (mRNA) from 14 high-risk HPV types (16, 18, ?? 31, 33, 35, 39, 45, 51, 52, 56, 58, 59, 66, 68) ?? HPV testing performed by [facility], [place], [place]. ??See reference laboratory ?? portion of the EMR for entire report. ?Clinical Information LMP: Postmenopausal Previous PAP test: Unknown date/findings ? Material Received ?? ThinPrep-Vaginal/Cervical ----- ------- Signed (signature on file) RIANNA Han (ASCP) 02/17/24 0659 ? ----- ------- ? END OF REPORT ? us Alyce ROTH LAB CYTOLOGY ORDERABLES F inal Result [facility] [address] [place] [phone] * BI Mammogram Screening Tomosynthesis Bilateral (01/05/2024 10:40 AM EDT) Anatomical Region Laterality Modality Breast Bilateral Mammography 01/05/2024 10:4 0 AM EDT Narrative 01/27/2024 12:19 AM EDT ? [facility] ? [address] ?[place] [address] ? Mammography Report ? Signed ? Patient: Siddharth York,Diamond Broussard ?MR#: ?? [id number] ? : 1960 ?Acct:[id number] ? Age/Sex: 63 / F ?ADM Date: 01/05/24 ? Loc: HO.MAMMO ? Attending Dr: Fay Weinstein MD ? Ordering Physician: FAY WEINSTEIN MD ?Results: 1Neg ?? ative ? Date of Service: 01/05/24 ?Follow Up: 1 Year From Orig ?? inal Mammogram ? Procedure(s): MM tomosynthesis screening BI ?? Accession Number(s): [id number] ? cc: FAY WEINSTEIN MD; Diamond Blake MD ? EXAMINATION: ?? MM SCREENING DIGITAL BREAST TOMOSYNTHESIS, BILATERAL ? CLINICAL INFORMATION: ? Screening. Asymptomatic. ? COMPARISON: ?? Mammography: This study is compared with prior exams dating back to ?? 2019. ? TECHNIQUE: ?? Digital breast tomosynthesis is performed in both the craniocaudal and ?? mediolateral oblique views along with computer-aided detection (CAD). ?? Synthesized 2D images are generated from the tomosynthesis. ? FINDINGS: ?? There are scattered areas of fibroglandular density (ACR BI-RADS breast ?? composition Category b). ? There are no significant masses, abnormal calcifications, or other ?? abnormalities. ? MM/MM tomosynthesis screening BI ?? IMPRESSION: ?? No mammographic evidence of malignancy. ? ASSESSMENT: ? BI-RADS BI-RADS 1 - Negative ? RECOMMENDATION: ?? Routine annual mammography screening. ? 1 year F/U ? This examination should not preclude the clinical evaluation of a ?? suspicious palpable abnormality. ? This patient's information was entered into a reminder system with a ?? target due date for their next mammogram. ? Dictated By: ?Bing Amador MD ? Signed By: ?<Electronically signed by Bing Amador MD in OV> ? 01/27/2414 ? DD/ 1040 ? TD/TT: ? Professor Of French: ? Procedure Note Torey, Image - 01/27/2024 [facility] [address] [place] [address] Mammography Report Signed Patient: Diamond Grider EMR#: [id number] : 1960Acct:[id number] Age/Sex: 63 / FADM Date: 01/05/24 Loc: HO.MAMMO Attending Dr: Fay Weinstein MD Ordering Physician: FAY WEINSTEINesults: 1Neg ative Date of Service: 01/05/24Follow Up: 1 Year From Orig inal Mammogram Procedure(s): MM tomosynthesis screening BI Accession Number(s): [id number] cc: FAY WEINSTEIN MD; Diamond Blake MD EXAMINATION: MM SCREENING DIGITAL BREAST TOMOSYNTHESIS, BILATERAL CLINICAL INFORMATION: Screening. Asymptomatic. COMPARISON: Mammography: This study is compared with prior exams dating back to 2019. TECHNIQUE: Digital breast tomosynthesis is performed in both the craniocaudal and mediolateral oblique views along with computer-aided detection (CAD). Synthesized 2D images are generated from the tomosynthesis. FINDINGS: There are scattered areas of fibroglandular density (ACR BI-RADS breast composition Category b). There are no significant masses, abnormal calcifications, or other abnormalities. MM/MM tomosynthesis screening BI IMPRESSION: No mammographic evidence of malignancy. ASSESSMENT: BI-RADS BI-RADS 1 - Negative RECOMMENDATION: Routine annual mammography screening. 1 year F/U This examination should not preclude the clinical evaluation of a suspicious palpable abnormality. This patient's information was entered into a reminder system with a target due date for their next mammogram. Dictated By: Bing Amador MD Signed By: <Electronically signed by Bing Amador MD in OV> 01/27/24 0015 DD/ 1040 TD/TT: Professor Of French: [facility] External Provider IMG BI PROCEDURES Final Result * Hepatitis C Antibody with Reflex to HCV, RNA, Quantitative, Real-Time PCR (08/28/2023 9:03 AM EST) Hepatitis C Antibody Nonreactive Nonreactive [facility] Comment:Antibodies to HCV no t detected; does not exclude early acuteHCV infection. Blood Venous blood specimen / Unknown 08/28/2023 9:03 AM EST 08/28/2023 11:14 AM EST Diamond Barry MD LAB BLOOD ORDERAB LES Final Result [facility] [address] [place] [phone] * (ABNORMAL) Hm Colonoscopy (07/21/2023) Colonoscopy Abnormal( A) Normal Comment:polyps(??4-5 mm sess ile polyp??and??6-8 mm sessile polyps s/p removal-Bx : (mild hyperplastic changes) ,internal hemorrhoids,diverticular??disease??Repeat Colonoscopy in 1-2 years due to fair prep Narrative Diamond Blake MD - 07/21/2023 ??polyps(??4-5 mm sessile polyp??and??6-8 mm sessile polyps s/p removal-Bx : (mild hyperplastic changes) ,internal hemorrhoids,diverticular??disease??Repeat Colonoscopy in 1-2 years due to fair prep Historical Provider MD HEALTH MAINTENANCE Final Result from Last 3 Months or Most Recently Relevant to Health Maintenance Insurance [facility] C3 DENTAL-[facility] MEDICAID STAND ADULT Care Teams Plasterer Maintenance Relationship Specialty Start Date End Date Diamond Blake MD [address] [place] [address] PCP - General Internal Medicine 06/30/23 Zechariah Bradley Adult And Pediatric NeurologistBooster Operator 03/23/24
--- OUTSIDE RECORDS SUMMARY | 2024-12-16 11:04 | XMS_ITS | Encounter Summary ---
Author Organization [employer] Address [address] [facility] 7 [place] [address] Care Team Providers Care Jewel Hole Driller Name Role Phone Diamond Blake MD Primary Care Pro vider Reason for Visit * Reason Onset Date Comments Med Refill 07/07/2023 Encounter Details Date Type Department Care Team (Late st Contact Info) Description 07/07/2023 Refill [facility] [address] [place] [address] Nava Moss MD [address] [place] [address] Severe chronic obstructive pulmonary disease (CMS/HCC) Social History Tobacco Use Types Packs/Day Years [...] Description 01/24/2025 9:15 AM EDT Office Visit [facility] [address] [place] [address] Wanda Hough CNM [address] [place], [place] [phone] documented as of this encounter Visit Diagnoses Diagnosis Severe chronic obstructive pulmonary disease (CMS/HCC) Chronic airway obstruction, not elsewhere classified documented in this encounter Additional Health Concerns Assessment Noted Time PHQ-9 Depression Total Score: 15 12/12/ 023 2:22 PM EST documented as of this encounter Care Teams Jewel Hole Driller Relationship Specialty Start Date End Date Diamond Blake MD [address] [place] [address] PCP - General Internal Medicine 06/30/23 Zechariah Bradley Marketing And Public Relations ManagerWeigher Alloy 03/23/24 documented as of this encounter
== END 2024-12-16 10:49 | disposition home or self-care (01) ==
PROVIDERS: PCP Internal Medicine
DX: M65.341 Trigger finger, right ring finger (principal)
CPT/HCPCS: 99214

== ENCOUNTER → 2024-12-16 09:59 | Outpatient (BNVA) | payer MEDICAID, SELFPAY | PROVIDERS: PCP Internal Medicine | DX: M65.341 Trigger finger, right ring finger (principal) | CPT/HCPCS: 99212 ==

== ENCOUNTER 2024-12-21 10:27 | Outpatient (AMB) | payer MEDICAID, SELFPAY ==
--- NOTE | 2024-12-21 10:51 | MHC.OFFVIS ---
Vital Signs 12/21/24 10:52 Height 5 ft 2 in Weight 203 lb BMI 37.1 BP 114/72 Blood Pressure Location Rt brachial Position Sitting Pulse 73 Pulse Source Pulse Oximeter Pulse Oximetry (%) 98 Oxygen Delivery Method Room Air Intake Visit Reasons: Follow up Intake Note: Pt presents to the office today for a follow up for PAOLA. Pt was last seen with Mehdi and had Sleep study done 01/26/24 Allergies animal dander Allergy (Verified 12/21/24 10:54) Rash tree and shrub pollen Allergy (Verified 12/21/24 10:54) Rash HPI Comments Details: 64 y/o female patient presents for follow up. Her repeat PSG in January 2024 was normal AHI was less than 1 and oxygen kelin was 80% and average O2 93% Patient denies any other concerns Pt was diagnosed with PAOLA in 2021. The home sleep study result was mild degree of sleep apnea. The AHI was 9/hr and oxygen kelin was 81%. REPLACED BY [facility] Medical History (Updated 12/21/24 @ 11:18 by Carmen Segundo MD) Snoring Renal calculi Limb swelling Sleep apnea Hx of renal calculi Pulmonary nodules Chronic allergic rhinitis Asthma Hypertension Non-toxic multinodular goiter Osteopenia Fernando's disease Hypothyroidism History of primary hyperparathyroidism Surgical History Status post fine needle aspiration Hx of cystoscopy Hx of lithotripsy History of surgery on arm Hx of parathyroidectomy H/O partial thyroidectomy Hx of tubal ligation Family History Maternal Grandmother Diabetes Father No problems noted. Mother Hypertension Asthma Social History Are you a primary care technician to a significant other at home: No Do you presently have visiting nurse or other home services: No Alcohol intake: never Patient Tobacco Use Status: Never used Tobacco Current occupational status: disabled Current occupation: right hand dominant Physical Exam Vital Signs: Last Vital Signs Pulse 73 12/21/24 10:52 BP 114/72 12/21/24 10:52 Pulse Ox 98 12/21/24 10:52 Oxygen Delivery Method Room Air 12/21/24 10:52 BMI result Body Mass Index 37.1 Const General: cooperative Nutritional Appearance: obese Orientation/consciousness: patient oriented x3 Limitations: language barrier Resp Effort & Inspection: normal respiratory effort and able to speak in complete sentences Neuro General: patient oriented x3 and gait normal Gait exam (Neuro): Normal gait present Motor exam (neuro): 5/5 motor strength present throughout Assessment & Plan Assessment & Plan (1) Snoring: Code(s): R06.83 - Snoring Category: Medical Plan Patient has PSG on 01/2024 was normal SNoring does not bother the patient SLeep study results were discussed in detail NO F/U needed Coding Level of Care Code Est Pt Level 3 (67907) Diagnoses Snoring R06.83
[2024-12-21 10:52] VITALS: BP 114/72; PULSE 73; O2SAT 98; BMI 37.1
--- OUTSIDE RECORDS SUMMARY | 2024-12-21 12:17 | XMS_ITS | Encounter Summary ---
Author Organization [employer] [facility] Address [address] [place] [address] 7 [place] [address] Care Team Providers Care Windows Laptop Technician Name Role Phone Diamond Blake MD Primary Care Pro vider Reason for Visit * Reason Onset Date Comments Med Refill 07/08/2023 Encounter Details Date Type Department Care Team (Late st Contact Info) Description 07/08/2023 Refill [facility] [address] [place] [address] Diamond Blake MD [address] [place] [address] Severe chronic obstructive pulmonary disease (CMS/HCC); Hypertension, [...] Description 01/24/2025 9:15 AM EDT Office Visit [facility] [address] [place] [address] Wanda Hough CNM [address] [place], [place] [phone] documented as of this encounter Visit Diagnoses Diagnosis Severe chronic obstructive pulmonary disease (CMS/HCC) Chronic airway obstruction, not elsewhere classified Hypertension, unspecified type Hyperlipidemia, unspecified hyperlipidemia type Chronic pain of both knees Acute pain of left shoulder documented in this encounter Additional Health Concerns Assessment Noted Time PHQ-9 Depression Total Score: 15 023 2:22 PM EST documented as of this encounter Care Teams Windows Laptop Technician Relationship Specialty Start Date End Date Diamond Blake MD [address] [place], [place] [phone] PCP - General Internal Medicine 06/30/23 Zechariah Bradley Truck DispatcherSupervisor Type Bar And Segment 03/23/24 documented as of this encounter
--- OUTSIDE RECORDS SUMMARY | 2024-12-21 12:18 | XMS_ITS | Encounter Summary ---
Author Organization [employer] Address [address] [facility] [address] [place] [address] Care Team Providers Care Special Education Math Teacher Name Role Phone Diamond Blake MD Primary Care Pro vider Reason for Visit * Reason Onset Date Comments Med Refill 07/07/2023 Encounter Details Date Type Department Care Team (Late st Contact Info) Description 07/07/2023 Refill [facility] [address] [place] [address] Otoniel Bella MD [address] [place] [address] Chronic pain of both knees; Acute pain [...] Description 01/24/2025 9:15 AM EDT Office Visit [facility] [address] [place] [address] Wanda Hough CNM [address] [place] [address] documented as of this encounter Visit Diagnoses Diagnosis Chronic pain of both knees Acute pain of left shoulder documented in this encounter Additional Health Concerns Assessment Noted Time PHQ-9 Depression Total Score: 15 12/12/ 023 2:22 PM EST documented as of this encounter Care Teams Special Education Math Teacher Relationship Specialty Start Date End Date Diamond Blake MD [address] [place] [address] PCP - General Internal Medicine 06/30/23 Zechariah Bradley Food And Beverage CashierStone Grader 03/23/24 documented as of this encounter
--- OUTSIDE RECORDS SUMMARY | 2024-12-21 12:18 | XMS_ITS | Encounter Summary ---
Author Organization [employer] Address [address] [facility] 7t [place] [address] Care Team Providers Care Manager Technical Support Name Role Phone Diamond Blake MD Primary Care Pro vider Reason for Visit * Reason Comments Med Refill Encounter Details Date Type Department Care Team (Late st Contact Info) Description 10/24/2024 Refill [facility] MEDICINE [address] [place] [address] Diamond Blake MD [address] [place] [address] Social History Tobacco Use Types Packs/Day Years [...] Description 01/24/2025 9:15 AM EDT Office Visit [facility] [address] [place] [address] Wanda Hough CNM [address] [place] [address] documented as of this encounter Visit Diagnoses Not on filedocumented in this encounter Additional Health Concerns Assessment Noted Time PHQ-9 Depression Total Score: 14 024 9:42 AM EDT documented as of this encounter Care Teams Manager Technical Support Relationship Specialty Start Date End Date Diamond Blake MD [address] [place] [address] PCP - General Internal Medicine 06/30/23 Zechariah Bradley Business Intelligence AdministratorDraw Hand 03/23/24 documented as of this encounter
--- OUTSIDE RECORDS SUMMARY | 2024-12-21 12:18 | XMS_ITS | Encounter Summary ---
Author Organization [employer] Address [address] [facility] 7t [place] [address] Care Team Providers Care Combine Operator Name Role Phone Diamond Blake MD Primary Care Pro vider Reason for Visit * Reason Onset Date Comments Med Refill 11/30/2024 Encounter Details Date Type Department Care Team ([facility] st Contact Info) Description 11/30/2024 Refill [facility] [address] [place] [address] Diamond Blake MD [address] [place] [address] Social History Tobacco Use Types Packs/Day Years [...] Description 01/24/2025 9:15 AM EDT Office Visit [facility] MED[facility] [address] [place] [address] Wanda Hough CNM [address] [place] [address] documented as of this encounter Visit Diagnoses Not on filedocumented in this encounter Additional Health Concerns Assessment Noted Time PHQ-9 Depression Total Score: 14 024 9:42 AM EDT documented as of this encounter Care Teams Combine Operator Relationship Specialty Start Date End Date Diamond Blake MD [address] [place] [address] PCP - General Internal Medicine 06/30/23 Zechariah Bradley Weaving Machine OperatorCore Layer Machine Operator 03/23/24 documented as of this encounter
--- OUTSIDE RECORDS SUMMARY | 2024-12-21 12:18 | XMS_ITS | Encounter Summary ---
Author Organization [employer] Address [address] [place] [address] 7t [place] [address] Care Team Providers Care Grease Machine Worker Name Role Phone Diamond Blake MD Primary Care Pro vider Reason for Visit * Reason Onset Date Comments Med Refill 07/07/2023 Encounter Details Date Type Department Care Team (Late st Contact Info) Description 07/07/2023 Refill [facility] [address] [place] [address] Lay Avila MD [address] [place] [address] Social History Tobacco Use Types Packs/Day Years [...] Description 01/24/2025 9:15 AM EDT Office Visit [facility] MED[facility] [address] [place] [address] Wanda Hough CNM [address] [place] [address] documented as of this encounter Visit Diagnoses Not on filedocumented in this encounter Additional Health Concerns Assessment Noted Time PHQ-9 Depression Total Score: 15 12/12/ 023 2:22 PM EST documented as of this encounter Care Teams Grease Machine Worker Relationship Specialty Start Date End Date Diamond Blake MD [address] [place] [address] PCP - General Internal Medicine 06/30/[address]chariah Bradley ChargerPilot Highway Patrol 03/23/24 documented as of this encounter
--- OUTSIDE RECORDS SUMMARY | 2024-12-21 12:18 | XMS_ITS | Encounter Summary ---
Author Organization [employer] Address 75 [facility] 7t [place] [address] Care Team Providers Care Thread Grinder Tool Name Role Phone Diamond Blake MD Primary Care Pro vider Reason for Visit * Reason Comments Med Refill Encounter Details Date Type Department Care Team (Late st Contact Info) Description 01/29/2024 Refill [facility] [address] [place] [address] Diamond Blake MD [address] [place] [address] Social History Tobacco Use Types Packs/Day Years [...] Description 01/24/2025 9:15 AM EDT Office Visit [facility] MED[facility] [address] [place] [address] Wanda Hough CNM [address] [place] [address] documented as of this encounter Visit Diagnoses Not on filedocumented in this encounter Additional Health Concerns Assessment Noted Time PHQ-9 Depression Total Score: 12 023 11:15 AM EST documented as of this encounter Care Teams Thread Grinder Tool Relationship Specialty Start Date End Date Diamond Blake MD [address] [place] [address] PCP - General Internal Medicine 06/30/23 Zechariah Bradley Nurse AssessorFinance Manager 03/23/24 documented as of this encounter
--- OUTSIDE RECORDS SUMMARY | 2024-12-21 12:18 | XMS_ITS | Encounter Summary ---
Author Organization [employer] Address [address] [facility] [address] [place] [address] Care Team Providers Care Supervisor Machining Name Role Phone Kailash Trevizo Primary Care Provider Unavail able Diamond Blake MD Primary Care Pro vider Reason for Visit * Reason Comments Med Refill Encounter Details Date Type Department Care Team (Late st Contact Info) Description 02/11/2023 Refill [facility] [address] [place] [address] Otoniel Bella MD [address] [place] [address] Chronic pain of both knees; Acute pain [...] Description 01/24/2025 9:15 AM EDT Office Visit [facility] [address] [place] [address] Wanda Hough CNM [address] [place] [address] documented as of this encounter Visit Diagnoses Diagnosis Chronic pain of both knees Acute pain of left shoulder documented in this encounter Additional Health Concerns Assessment Noted Time PHQ-9 Depression Total Score: 15 12/12/ 023 2:22 PM EST documented as of this encounter Care Teams Supervisor Machining Relationship Specialty Start Date End Date Kailash Trevizo AGNP PCP - General Family Medicine 11/13/22 06/29/23 Diamond Blake MD [address] [place] [address] PCP - General Internal Medicine 06/30/23 Zechariah Bradley Octave Board RackerBeauty Operator Apprentice 03/23/24 documented as of this encounter
--- OUTSIDE RECORDS SUMMARY | 2024-12-21 12:18 | XMS_ITS | Encounter Summary ---
Author Organization [employer] Address [address] 7t [place] [address] Care Team Providers Care Manager Management Name Role Phone Diamond Blake MD Primary Care Pro vider Reason for Visit * Reason Onset Date Comments Med Refill 09/28/2023 Encounter Details Date Type Department Care Team (Late st Contact Info) Description 09/28/[address] [facility] MED & PEDS [address] [place] [address] Zaida Christy MD [address] [place] [address] Hypertension, unspecified type Social History Tobacco Use [...] Description 01/24/2025 9:15 AM EDT Office Visit [facility] MEDICINE [address] [place] [phone] Wanda Hough CNM [address] [place] [address] [phone] documented as of this encounter Visit Diagnoses Diagnosis Hypertension, unspecified type documented in this encounter Additional Health Concerns Assessment Noted Time PHQ-9 Depression Total Score: 15 023 2:22 PM EST documented as of this encounter Care Teams Manager Management Relationship Specialty Start Date End Date Diamond Blake MD [address] [place] [phone] PCP - General Internal Medicine 06/30/23 Zechariah Bradley Learning Support SpecialistButter Maker 03/23/24 documented as of this encounter
--- OUTSIDE RECORDS SUMMARY | 2024-12-21 12:18 | XMS_ITS | Encounter Summary ---
Author Organization [facility] Address [address] [place] [address] 7 [place] [address] Care Team Providers Care Director Media Name Role Phone Diamond Blake MD Primary Care Pro vider Reason for Visit * Reason Comments Med Refill Encounter Details Date Type Department Care Team (Late st Contact Info) Description 07/06/2023 Refill [facility] MEDICINE [address] [place] [address] Kailash Trevizo AGNP Hypertension, unspecified type Social [...] Description 01/24/2025 9:15 AM EDT Office Visit [facility] MEDICINE [address] [place] [address] Wanda Hough CNM [address] [place] [address] documented as of this encounter Visit Diagnoses Diagnosis Hypertension, unspecified type documented in this encounter Additional Health Concerns Assessment Noted Time PHQ-9 Depression Total Score: 15 12/12/ 023 2:22 PM EST documented as of this encounter Care Teams Director Media Relationship Specialty Start Date End Date Diamond Blake MD [address] [place] [phone] PCP - General Internal Medicine 06/30/23 Zechariah Bradley Investor Relations ManagerMedical Library Assistant 03/23/24 documented as of this encounter
--- OUTSIDE RECORDS SUMMARY | 2024-12-21 12:18 | XMS_ITS | Encounter Summary ---
Author Organization [employer] [facility] Address [address] [place] [address] 7t [place] [address] Care Team Providers Care Hair Preparer Name Role Phone Diamond Blake MD Primary Care Pro vider Reason for Visit * Reason Onset Date Comments Med Refill 07/07/2023 Encounter Details Date Type Department Care Team (Late Contact Info) Description 07/07/2023 Refill [facility] MEDICINE [address] [place] [address] Kailash Trevizo AGNP Severe chronic obstructive pulmonary [...] [facility] MED[facility] [address] [place], [place] [phone] Wanda Hough CNM [address] [place], [place] [phone] documented as of this encounter Visit Diagnoses Diagnosis Severe chronic obstructive pulmonary disease (CMS/HCC) Chronic airway obstruction, not elsewhere classified Hypertension, unspecified type Hyperlipidemia, unspecified hyperlipidemia type documented in this encounter Additional Health Concerns Assessment Noted Time PHQ-9 Depression Total Score: 15 023 2:22 PM EST documented as of this encounter Care Teams Hair Preparer Relationship Specialty Start Date End Date Diamond Blake MD [address] [place] [phone] PCP - General Internal Medicine 06/30/23 Zechariah Bradley Software Maintenance EngineerHotel Maintenance Engineer 03/23/24 documented as of this encounter
--- OUTSIDE RECORDS SUMMARY | 2024-12-21 12:18 | XMS_ITS | Clinical Summary ---
Author Organization [employer] Address [address] [facility] 7t [place] [address] Care Team Providers Care Reuse Technician Name Role Phone Diamond Blake MD [...] EVERY MORNING 90 capsule 1 024 Active albuterol (Ventolin HFA) 108 (90 [...] per week. 2 mL 025 2024 Active atorvastatin (Lipitor) 10 MG tabletIndication s:Hyperlipidemia , unspecified hyperlipidemia type Take 1 tablet (10 mg) by mouth Once per day. 90 tablet 025 Active atorvastatin (Lipitor) 10 MG tabletIndication s:Hyperlipidemia , unspecified hyperlipidemia type Take 1 tablet (10 mg) by mouth Once per day. 90 tablet 024 2024 Discontinued( Reorder (will not trigger notification to Pharmacy)) Tirzepatide-Weig ht Management (Zepbound) 5 MG/0.5ML solution [...] in her new apartment. We had the [facility] department come up and talk with her. They recommended a referral to care management. Referral placed. PHQ: 0 STI: reports no partner at this time. Pap: Last memory was in [place], approximately 5 years ago. Substance use: Denies [...] shortly cant remember date. Eye exam: Sees [facility] eye care. Dental home: Had [facility] dental appointment that she missed. She is now going to [facility]. Localized swelling of both lower [...] ?? LDL-C is now calculated using the Jay calculation, which is a validated novel method providing better accuracy than the Friedewald equation in the estimation of LDL-C. Eb LOPEZ et al. [place]. 2013;310(19): 1881-3483 (http://education.[employer]/faq/TQL302) Chol/HDLC Ratio <5.0 (calc) 4.1 3.8 4.0 [...] see if there was an error. The aquatic laborer was able to find the lab orders. I discussed with patient if there was an issue with her blood work someone would contact her to set up and appointment. Osteopenia 04/17/2017 Vitamin D deficiency 04/17/2017 Resolved Problems Problem Noted Date Diagnosed Date Resolved Date Black tongue 08/18/2023 10/09/2023 Anemia 04/17/2017 08/18/2023 Encounters Date Type Department Care Team Description 12/21/2024 Refill [facility] [address] [place] [address] Diamond Blake MD Hypothyroidism, unspecified type 12/20/2024 Refill [facility] [address] [place] [address] Diamond Blake MD Hyperlipidemia, unspecified hyperlipidemia type 12/01/2024 Travel 11/30/2024 Refill [facility] MED & PEDS [address] [place] [address] Diamond Blake MD 11/02/2024 Telephone [facility] MEDICINE [address] [place] [address] Diamond Blake MD Care Coordination (ICP care plan) 11/02/2024 Patient Outreach [facility] MEDICINE [address] [place] [address] Diamond Blake MD 10/29/2024 Refill [facility] MEDICINE [address] [place] [address] Diamond Blake MD Venous stasis dermatitis of both lower extremities 10/25/2024 Refill [facility] MEDICINE [address] [place] [address] Sultana Parra RN Hypertension, unspecified type 10/25/2024 Refill [facility] MED & PEDS [address] [place] [address] Diamond Blake MD Hypertension, unspecified type 10/24/2024 Refill [facility] MEDICINE [address] [place] [address] Diamond Blake MD 10/21/2024 Refill [facility] MEDICINE [address] [place] [address] Diamond Blake MD 10/17/2024 10:30 AM EST Clinical Support [facility] DIABETES/NUTRITION [address] [place] [address] Hypertension, essential (Primary Dx); Obesity due to excess calories, unspecified obesity severity 10/17/2024 Travel 10/10/2024 Refill [facility] MEDICINE [address] [place] [address] Zaida Christy MD from Last 3 Months Immunizations Name [...] is your housing situation today? I have rochelleradha vidales 08/04/[address] you [...] the past 12 months, has t he [employer], gas, oil or water [email or web address] threatened to shut off services in your [...] Description 01/24/2025 9:15 AM EDT Office Visit [facility] MEDICINE [address] [place] [address] Alyce Gallo, CN [address] [place] [address] Health Maintenance Due Date Last Done Comments [...] Procedure Name Priority Date/Time Associated Diagnosis Comments HEMOGLOBIN A1C Routine 09/05/2024 8:25 AM EST [...] Recently Relevant to Health Maintenance Results * Hemoglobin A1c (09/05/2024 8:25 AM EST) Hemoglobin A1c 5.7 <6.0 % [facility] Comment:Hemoglobin A1C Refer ence Range Adults: 4.8 - 6.0 % Non diabetic: < 6.0 % Goal: < 7.0 %Additional Action Suggested: > 8.0 %Note: Hemoglobin A1c results are invalid for patients with abnormal amounts of HbF. Blood transfusions may impact the HbA1c concentration in the patient sample. Estimated Average Glucose 117 mg/dL [facility] Comment:eAG = Estimated ave rage glucose which is %A1C expressed asaverage glucose, using the formula of the V3W-TaywrcoTwnhrep Glucose study (ADAG), Diabetes Care, Vol.31,#8,2007 Blood Venous blood specimen / Unknown 09/05/2024 8:25 AM EST 09/05/2024 11:36 AM EST us Diamond Barry MD LAB BLOOD ORDERAB LES Final Result [facility] [address] [place] [phone] * Lipid Panel, Standard (09/05/2024 8:25 AM EST) Triglycerides 134 <150 mg/dL [facility] Comment:Desirable Triglyceri de: less than 150 mg/dLBorderline High Triglyceride 150-199 mg/dLHigh Triglyceride: 200-499 mg/dLVery High Triglyceride: greater than or equal to 5OO mg/dL Cholesterol 152 <200 mg/dL [facility] Comment:Desirable Cholestero l: less than 200 mg/dLBorderline High Cholesterol: 200-239 mg/dLHigh Cholesterol: greater than 239 mg/dL LDL Cholesterol Calculated 70 <100 mg/dL [facility] Comment:Desirable LDL: less than 100 mg/dLNear Optimal/Above Optimal LDL: 110- 129 mg/dLBorderline High LDL: 130-159 mg/dLHigh LDL: 160-189 mg/dLVery High LDL: greater than or equal to 190 mg/dL HDL Cholesterol 56 >40 mg/dL [facility] Comment:Desirable HDL: great er than 40 mg/dL Note: This HDL assay may give artificially low results in patients with liver disease. Blood Venous blood specimen / Unknown 09/05/2024 8:25 AM EST 09/05/2024 11:36 AM EST us Diamond Barry MD LAB BLOOD ORDERAB LES Final Result Performing Organization Address [facility]/ZIP Co de Phone Number [facility] [address] [place] [address] [phone] * HPV mRNA E6/E7 w/Reflex to HPV Genotypes 16, 18/45 (01/28/2024 11:09 AM EDT) HPV nRNA E6/E7 Not Detected Not Detected [facility] Comment:Methodology: Transcr iption-Mediated AmplificationThis assay detects E6/E7 viral messenger RNA (mRNA) from 14high-risk HPV types (16,18,31,33,35,39,45,51,52,56,58,59,66,68).Cervical sources are required for HPV testing.If a vaginal source from a patient who has had atotal hysterectomy with removal of cervix wassubmitted, please contact the testing laboratoryfor alternative testing options.For additional information, please refer tohttp://education.[employer]/faq/EOM522f8(This link if provided for information/educational purposes only.)THIS TEST WAS PERFORMED AT:[facility] [place] [phone] CHANG MD HPV mRNA E6/E7 [facility] HPV 16 RNA [facility] HPV 18/45 RNA [facility] 01/28/2024 11:0 9 AM EDT 02/02/2024 12:00 PM EDT us Alyce ROTH LAB CYTOLOGY ORDERABLES F inal Result Performing Organization Address City/[facility]/ZIP Co de Phone Number [facility] [address] [place] [address] [phone] * Pap Smear (01/28/2024 11:09 AM EDT) Swab Cervix uteri structure / Unknown 01/28/2024 11:09 AM EDT 02/02/2024 12:00 PM EDT Narrative [facility] - 02/17/2024 6:59 AM EDT ----- ------- Name: Siddharthtom CastanoedDiamond ? Age/Sex: 63/F ? : 1960 Unit#: [id number] ?? Attend Dr: ALYCE GALLO CNM ?Re01/28/24 ?Status: DEP REF ? [facility] ? Disch: ? ----- ------- SPEC : [id number] ? RECD: 02/02/24-1199 ? STATUS: ??SOUT ? REQ NUM: [id number] ? SELENE: 01/28/24-1109 ? SUBM DR: ALYCE GALLO CNM ? ENTERED: ??02/02/24-124 ?SP TYPE: Pap Smr ?OTHR : ? ORDERED: ??Pap Smear ? Interpretation ?? Satisfactory for evaluation. ?? Atrophic. ?? Negative for intraepithelial lesion or malignancy. ?HPV mRNA E6/E7: ?NOT DETECTED ? This assay detects E6/E7 viral messenger RNA (mRNA) from 14 high-risk HPV types (16, 18, ?? 31, 33, 35, 39, 45, 51, 52, 56, 58, 59, 66, 68) ?? HPV testing performed by [facility], [place], [place]. ??See reference laboratory ?? portion of the EMR for entire report. ?Clinical Information LMP: Postmenopausal Previous PAP test: Unknown date/findings ? Material Received ?? ThinPrep-Vaginal/Cervical ----- ------- Signed (signature on file) RIANNA Han (ASCP) 02/17/24 0659 ? ----- ------- ? END OF REPORT ? us Alyce Gallo CNM LAB CYTOLOGY ORDERABLES F inal Result [facility] [address] [place] [address] [phone] * BI Mammogram Screening Tomosynthesis Bilateral (01/05/2024 10:40 AM EDT) Anatomical Region Laterality Modality Breast Bilateral Mammography 01/05/2024 10:4 0 AM EDT Narrative 01/27/2024 12:19 AM EDT ? [facility] ? [address] ?[place] [address] ? Mammography Report ? Signed ? Patient: Diamond Grider ?MR#: ?? [id number] ? : 1960 ?Acct:[id number] ? Age/Sex: 63 / F ?ADM Date: 01/04/ ? Loc: HO.MAMMO ? Attending Dr: Fay Weinstein MD ? Ordering Physician: VAL,FAY MD ?Results: 1Neg ?? ative ? Date of Service: // ?Follow Up: 1 Year From Orig ?? inal Mammogram ? Procedure(s): MM tomosynthesis screening BI ?? Accession Number(s): [id number] ? cc: FAY WEINSTEIN MD; Diamond Blake [...] by Bing Amador MD in OV> ? 01/27/24 0015 ? DD/ 1040 ? TD/TT: ? Spinning Doffer: ? Procedure Note Torey, Image - 01/27/2024 [facility] [address] [place] [address] [place] [address] Mammography Report Signed Patient: Daimond Grider EMR#: [id number] : 1960Acct:[id number] Age/Sex: 63 / FADM Date: 01/05/24 Loc: JOVANY Attending Dr: Fay Weinstein MD Ordering Physician: FAY WEINSTEIN MDResults: 1Neg ative Date of Service: 01/05/24Follow Up: 1 Year From [facility] ina Mammogram Procedure(s): MM tomosynthesis screening BI Accession Number(s): [id number] cc: FAY WEINSTEIN MD; Diamond Blake MD [...] in OV> 01/27/24 0015 DD/ 1040 TD/TT: Spinning Doffer: [facility] External Provider IMG BI PROCEDURES Final Result * Hepatitis C Antibody with Reflex to HCV, RNA, Quantitative, Real-Time PCR (08/28/2023 9:03 AM EST) Hepatitis C Antibody Nonreactive Nonreactive [facility] Comment:Antibodies to HCV no t detected; does not exclude early acuteHCV infection. Blood Venous blood specimen / Unknown 08/28/2023 9:03 AM EST 08/28/2023 11:14 AM EST Result [facility] Diamond Barry MD LAB BLOOD ORDERAB LES Final Result [facility] [address] [place] [address] [phone] * (ABNORMAL) Colonoscopy (07/21/2023) Colonoscopy Abnormal( A) Normal Comment:polyps(??4-5 mm sess ile polyp??and??6-8 mm sessile polyps s/p removal-Bx : (mild hyperplastic changes) ,internal hemorrhoids,diverticular??disease??Repeat Colonoscopy in 1-2 years due to fair prep Narrative Diamond Blake MD - 07/21/2023 ??polyps(??4-5 mm sessile polyp??and??6-8 mm sessile polyps s/p removal-Bx : (mild hyperplastic changes) ,internal hemorrhoids,diverticular??disease??Repeat Colonoscopy in 1-2 years due to fair prep Historical Provider HEALTH MAINTENANCE Final Result from Last 3 Months or Most Recently Relevant to Health Maintenance Insurance [facility] C3 DENTAL-[facility] MEDICAID STAND ADULT Care Teams Reuse Technician Relationship Specialty Start Date End Date Diamond Blake MD [address] [place] [address] PCP - General Internal Medicine 06/30/23 Zechariah Bradley Chain Builder Loom ControlRailroad Car Loader 03/23/24
--- OUTSIDE RECORDS SUMMARY | 2024-12-21 12:18 | XMS_ITS | Encounter Summary ---
Author Organization [employer] Address [address] [facility] 7t [place] [address] Care Team Providers Care Storage Architect Name Role Phone Diamond Blake MD Primary Care Pro vider Reason for Visit * Reason Onset Date Comments Med Refill 12/20/2024 Encounter Details Date Type Department Care Team (Late st Contact Info) Description 12/20/2024 Refill [facility] MED & PEDS [address] [place] [address] Diamond Blake MD [address] [place] [address] Hyperlipidemia, unspecified hyperlipidemia type Social History Tobacco [...] the past 12 months, has t he [employer], gas, oil or water company threatened to [...] Description 01/24/2025 9:15 AM EDT Office Visit [facility] MEDICINE [address] [place] [address] [phone] Wanda Hough CNM [address] [place] [address] documented as of this encounter Visit Diagnoses Diagnosis Hyperlipidemia, unspecified hyperlipidemia type documented in this encounter Additional Health Concerns Assessment Noted Time PHQ-9 Depression Total Score: 14 024 9:42 AM EDT documented as of this encounter Care Teams Storage Architect Relationship Specialty Start Date End Date Diamond Blake MD [address] [place], [place] [phone] PCP - General Internal Medicine 06/30/23 Zechariah Bradley Wiper BlenderSheet Metal Lay Out Worker 03/23/24 documented as of this encounter
--- OUTSIDE RECORDS SUMMARY | 2024-12-21 12:18 | XMS_ITS | Encounter Summary ---
Author Organization [employer] Address [address] [facility] [address] 7t [place] [address] Care Team Providers Care Idea Worker Name Role Phone Diamond Blake MD [...] 01/24/2025 9:15 AM EDT Office Visit [facility] MEDICINE [address] [place] [address] Wanda Hough CNM [address] [place], [place] [phone] documented as of this encounter Visit Diagnoses Not on filedocumented in this encounter Additional Health Concerns Assessment Noted Time PHQ-9 Depression Total Score: 14 024 9:42 AM EDT documented as of this encounter Care Teams Idea Worker Relationship Specialty Start Date End Date Diamond Blake MD [address] [place] [address] [phone] PCP - General Internal Medicine 06/30/23 Zechariah Bradley Radiation Safety OfficerSubscription Crew Leader 03/23/24 documented as of this encounter
--- OUTSIDE RECORDS SUMMARY | 2024-12-21 12:18 | XMS_ITS | Encounter Summary ---
Author Organization [employer] Address [address] [facility] 7t [place] [address] Care Team Providers Care Campus Aide Name Role Phone Diamond Blake MD Primary Care Pro vider Reason for Visit * Reason Comments Med Refill Encounter Details Date Type Department Care Team ([facility] st Contact Info) Description 12/21/2024 Refill [facility] [address] [place] [address] Diamond Blake MD [address] [place] [address] Hypothyroidism, unspecified type Social History Tobacco Use Types [...] Description 01/24/2025 9:15 AM EDT Office Visit [facility] MEDICINE [address] [place] [address] Wanda Hough CNM [address] [place] [address] documented as of this encounter Visit Diagnoses Diagnosis Hypothyroidism, unspecified type documented in this encounter Additional Health Concerns Assessment Noted Time PHQ-9 Depression Total Score: 14 024 9:42 AM EDT documented as of this encounter Care Teams Campus Aide Relationship Specialty Start Date End Date Diamond Blake MD [address] [place] [address] PCP - General Internal Medicine 06/30/23 Zechariah Bradley Bending Machine OperatorAssociate Chief Nurse 03/23/24 documented as of this encounter
--- OUTSIDE RECORDS SUMMARY | 2024-12-21 12:18 | XMS_ITS | Encounter Summary ---
Author Organization [employer] [facility] Address [address] [facility] 7t [place] [address] Care Team Providers Care Ecommerce Merchandising Manager Name Role Phone Kailash Trevizo Primary Care Provider Unavail able Diamond Blake MD Primary Care Pro vider Encounter Details Date Type Department Care Team (Late st Contact Info) Description 06/02/2023 Abstract [facility] ADULT DENTAL [address] [place] [address] Mervin Davisaris [address] [place] [address] Social History Tobacco Use Types Packs/Day Years [...] Office Visit [facility] MEDICINE [address] [place] [address] Wanda Hough CNM [address] [place] [address] documented as of this encounter Visit Diagnoses Not on filedocumented in this encounter Additional Health Concerns Assessment Noted Time PHQ-9 Depression Total Score: 15 12/12/ 023 2:22 PM EST documented as of this encounter Care Teams Ecommerce Merchandising Manager Relationship Specialty Start Date End Date Kailash Trevizo AGNP PCP - General Family Medicine 11/13/22 06/29/23 Diamond Blake MD [address] [place] [phone] PCP - General Internal Medicine 06/30/23 Zechariah Bradley Engineer SteamContent Engineer 03/23/24 documented as of this encounter
--- OUTSIDE RECORDS SUMMARY | 2024-12-21 12:18 | XMS_ITS | Encounter Summary ---
Author Organization [employer] Address [address] [facility] 7 [place] [address] Care Team Providers Care Clinical Associate Name Role Phone Diamond Blake MD Primary Care Pro vider Reason for Visit * Reason Onset Date Comments Med Refill 07/07/2023 Encounter Details Date Type Department Care Team (Late st Contact Info) Description 07/07/2023 Refill [facility] MED [facility] PEDS [address] [place] [address] Nava Moss MD [address] [place] [address] Severe chronic obstructive pulmonary disease (CMS/HCC) Social [...] Description 01/24/2025 9:15 AM EDT Office Visit [facility] MEDICINE [address] [place] [address] Wanda Hough CNM [address] [place], [place] [phone] documented as of this encounter Visit Diagnoses Diagnosis Severe chronic obstructive pulmonary disease (CMS/HCC) Chronic airway obstruction, not elsewhere classified documented in this encounter Additional Health Concerns Assessment Noted Time PHQ-9 Depression Total Score: 15 12/12/ 023 2:22 PM EST documented as of this encounter Care Teams Clinical Associate Relationship Specialty Start Date End Date Diamond Blake MD [address] [place] [address] PCP - General Internal Medicine 06/30/23 Zechariah Bradley Conversion WorkerSieve Maker 03/23/24 documented as of this encounter
--- OUTSIDE RECORDS SUMMARY | 2024-12-21 12:18 | XMS_ITS | Encounter Summary ---
Author Organization [employer] Address [address] [place] [address] 7t [place] [address] Care Team Providers Care Grill Attendant Name Role Phone Diamond Blake MD Primary Care Pro vider Reason for Visit * Reason Onset Date Comments Med Refill 07/07/2023 Encounter Details Date Type Department Care Team (Late st Contact Info) Description 07/07/2023 Refill [facility] MED & PEDS [address] [place] [address] Lay Avila MD [address] [place] [address] Social History Tobacco Use Types Packs/Day Years [...] 9:15 AM EDT Office Visit [facility] MEDICINE [address] [place] [address] Wanda Hough CNM [address] [place] [address] documented as of this encounter Visit Diagnoses Not on filedocumented in this encounter Additional Health Concerns Assessment Noted Time PHQ-9 Depression Total Score: 15 12/12/ 023 2:22 PM EST documented as of this encounter Care Teams Grill Attendant Relationship Specialty Start Date End Date Diamond Blake MD [address] [place] [address] PCP - General Internal Medicine 06/30/23 Zechariah Bradley Rn RenalInsurance Appraiser 03/23/24 documented as of this encounter
--- OUTSIDE RECORDS SUMMARY | 2024-12-21 12:18 | XMS_ITS | Encounter Summary ---
Author Organization [employer] Address [address] [facility] 7t [place] [address] Care Team Providers Care Chemicals Fermentation Operator Name Role Phone Diamond Blake MD Primary Care Pro vider Reason for Visit * Reason Comments Med Refill Encounter Details Date Type Department Care Team ([facility] st Contact Info) Description 10/25/2024 Refill [facility] [address] [place] [address] Diamond Blake MD [address] [place] [address] Hypertension, unspecified type Social History Tobacco Use [...] 9:15 AM EDT Office Visit [facility] MEDICINE [address] [place] [address] Wanda Hough CNM 230 [place] [address] documented as of this encounter Visit Diagnoses Diagnosis Hypertension, unspecified type documented in this encounter Additional Health Concerns Assessment Noted Time PHQ-9 Depression Total Score: 14 024 9:42 AM EDT documented as of this encounter Care Teams Chemicals Fermentation Operator Relationship Specialty Start Date End Date Diamond Blake MD [address] [place] [address] PCP - General Internal Medicine 06/30/23 Zechariah Bradley Library AssistantGeneral Agent 03/23/24 documented as of this encounter
== END 2024-12-21 12:03 | disposition home or self-care (01) ==
PROVIDERS: PCP Internal Medicine; Visit Provider Psychiatry & Neurology Neurology
DX: R06.83 Snoring (principal)
CPT/HCPCS: 99213

== ENCOUNTER → 2024-12-21 10:27 | Outpatient (BNVA) | payer MEDICAID, SELFPAY | PROVIDERS: PCP Internal Medicine; Visit Provider Psychiatry & Neurology Neurology | DX: G47.33 Obstructive sleep apnea (adult) (pediatric) (principal); R06.83 Snoring | CPT/HCPCS: 99212 ==

== ENCOUNTER 2024-12-27 08:38 | Day surgery (SDC) | payer MEDICAID, SELFPAY ==
--- OUTSIDE RECORDS SUMMARY | 2024-12-26 14:21 | XMS_ITS | Encounter Summary ---
Author Organization [employer] Address [address] [place] [address] 7t [place] [address] Care Team Providers Care Wwe Wrestler Name Role Phone Diamond Blake MD Primary Care Pro vider Reason for Visit * Reason Onset Date Comments Med Refill 07/07/2023 Encounter Details Date Type Department Care Team (Late st Contact Info) Description 07/07/2023 Refill [facility] MED & PEDS [address] [place] [address] Lay Avila MD [address] [place] [address] Social History Tobacco Use Types Packs/Day Years [...] Description 01/24/2025 9:15 AM EDT Office Visit [facility] MEDICINE [address] [place] [address] Wanda Hough CNM [address] [place] [address] documented as of this encounter Visit Diagnoses Not on filedocumented in this encounter Additional Health Concerns Assessment Noted Time PHQ-9 Depression Total Score: 15 12/12/ 023 2:22 PM EST documented as of this encounter Care Teams Wwe Wrestler Relationship Specialty Start Date End Date Diamond Blake MD [address] [place] [address] PCP - General Internal Medicine 06/30/23 Zechariah Bradley Site InspectorCommunity Health Program Coordinator 03/23/24 documented as of this encounter
--- OUTSIDE RECORDS SUMMARY | 2024-12-26 14:21 | XMS_ITS | Encounter Summary ---
Author Organization [employer] [facility] Address [address] [place] [address] 7 [place] [address] Care Team Providers Care Environmental Science Program Director Name Role Phone Diamond Blake MD Primary Care Pro vider Reason for Visit * Reason Comments Med Refill Encounter Details Date Type Department Care Team (Late st Contact Info) Description 07/06/2023 Refill [facility] MEDICINE [address] [place] [address] Kailash Trevizo AGNP Hypertension, unspecified type Social [...] Description 01/24/2025 9:15 AM EDT Office Visit [facility] MEDICINE [address] [place] [address] Wanda Hough CNM [address] [place] [address] documented as of this encounter Visit Diagnoses Diagnosis Hypertension, unspecified type documented in this encounter Additional Health Concerns Assessment Noted Time PHQ-9 Depression Total Score: 15 12/12/ 023 2:22 PM EST documented as of this encounter Care Teams Environmental Science Program Director Relationship Specialty Start Date End Date Diamond Blake MD [address] [place] [phone] PCP - General Internal Medicine 06/30/23 Zechariah Bradley AmalgamatorLog Stacker Operator 03/23/24 documented as of this encounter
--- OUTSIDE RECORDS SUMMARY | 2024-12-26 14:21 | XMS_ITS | Encounter Summary ---
Author Organization [employer] Address [address] [facility] 7t [place] [address] Care Team Providers Care Bead Cutter Name Role Phone Diamond Blake MD Primary Care Pro vider Reason for Visit * Reason Onset Date Comments Med Refill 11/30/2024 Encounter Details Date Type Department Care Team ([facility] st Contact Info) Description 11/30/2024 Refill [facility] MED & PEDS [address] [place] [address] Diamond Blake MD [address] [place] [address] Social History Tobacco Use Types Packs/Day Years [...] Description 01/24/2025 9:15 AM EDT Office Visit [facility] MEDICINE [address] [place] [address] Wanda Hough CNM [address] [place] [address] documented as of this encounter Visit Diagnoses Not on filedocumented in this encounter Additional Health Concerns Assessment Noted Time PHQ-9 Depression Total Score: 14 024 9:42 AM EDT documented as of this encounter Care Teams Bead Cutter Relationship Specialty Start Date End Date Diamond Blake MD [address] [place] [address] PCP - General Internal Medicine 06/30/23 Zechariah Bradley Insect Control InspectorSkoog Machine Operator 03/23/24 documented as of this encounter
--- OUTSIDE RECORDS SUMMARY | 2024-12-26 14:21 | XMS_ITS | Encounter Summary ---
Author Organization [employer] Address [address] [facility] [address] 7t [place] [address] Care Team Providers Care Vehicle Monitor Technician Name Role Phone Diamond Blake MD Primary Care Pro vider Reason for Visit * Reason Onset Date Comments Med Refill 07/07/2023 Encounter Details Date Type Department Care Team (Late st Contact Info) Description 07/07/2023 Refill [facility] [address] [place] [address] Otoniel Bella MD [address] [place] [address] Chronic pain of both knees; Acute pain [...] Visit [facility] MEDICINE [address] [place] [address] Wanda Hough CNM [address] [place] [address] documented as of this encounter Visit Diagnoses Diagnosis Chronic pain of both knees Acute pain of left shoulder documented in this encounter Additional Health Concerns Assessment Noted Time PHQ-9 Depression Total Score: 15 12/12/ 023 2:22 PM EST documented as of this encounter Care Teams Vehicle Monitor Technician Relationship Specialty Start Date End Date Diamond Blake MD [address] [place] [address] PCP - General Internal Medicine 06/30/23 Zechariah Bradley Student Life DeanPlant Production Worker 03/23/24 documented as of this encounter
--- OUTSIDE RECORDS SUMMARY | 2024-12-26 14:21 | XMS_ITS | Encounter Summary ---
Author Organization [employer] Address [address] [facility] [address] 7t [place] [address] Care Team Providers Care Environmental Compliance Officer Name Role Phone Diamond Blake MD Primary Care Pro vider Reason for Visit * Reason Onset Date Comments Med Refill 09/28/2023 Encounter Details Date Type Department Care Team (Late st Contact Info) Description 09/28/2023 Refill [facility] MED & PEDS [address] [place] [address] Zaida Christy MD 230 [place] [address] Hypertension, unspecified type Social History Tobacco Use [...] Description 01/24/2025 9:15 AM EDT Office Visit [facility] MEDICINE [address] [place] [address] Wanda Hough CNM [address] [place] [address] [phone] documented as of this encounter Visit Diagnoses Diagnosis Hypertension, unspecified type documented in this encounter Additional Health Concerns Assessment Noted Time PHQ-9 Depression Total Score: 15 023 2:22 PM EST documented as of this encounter Care Teams Environmental Compliance Officer Relationship Specialty Start Date End Date Diamond Blake MD [address] [place] [phone] PCP - General Internal Medicine 06/30/23 Zechariah Bradley Pattern Grader SupervisorEpic Ambulatory Analyst 03/23/24 documented as of this encounter
--- OUTSIDE RECORDS SUMMARY | 2024-12-26 14:21 | XMS_ITS | Encounter Summary ---
Author Organization [employer] Address [address] [facility] 7t [place] [address] Care Team Providers Care Staff Readiness Officer Name Role Phone Diamond Blake MD Primary Care Pro vider Reason for Visit * Reason Comments Med Refill Encounter Details Date Type Department Care Team (Late st Contact Info) Description 10/24/2024 Refill [facility] MEDICINE [address] [place] [address] Diamond Blake MD 230 [place] [address] Social History Tobacco Use Types Packs/Day Years [...] Description 01/24/2025 9:15 AM EDT Office Visit [facility] MEDICINE [address] [place] [address] Wanda Hough CNM [address] [place] [address] documented as of this encounter Visit Diagnoses Not on filedocumented in this encounter Additional Health Concerns Assessment Noted Time PHQ-9 Depression Total Score: 14 024 9:42 AM EDT documented as of this encounter Care Teams Staff Readiness Officer Relationship Specialty Start Date End Date Diamond Blake MD 230 [place] [address] PCP - General Internal Medicine 06/30/23 Zechariah Bradley Manager Of MedicalSample Maker Original 03/23/24 documented as of this encounter
--- OUTSIDE RECORDS SUMMARY | 2024-12-26 14:21 | XMS_ITS | Encounter Summary ---
Author Organization [employer] Address [address] [facility] 7t [place] [address] Care Team Providers Care Seasonal Driver Name Role Phone Diamond Blake MD Primary Care Pro vider Reason for Visit * Reason Onset Date Comments Med Refill 12/20/2024 Encounter Details Date Type Department Care Team (Late st Contact Info) Description 12/20/2024 Refill [facility] MED & PEDS [address] [place] [address] Diamond Blake MD 230 [place] [address] Hyperlipidemia, unspecified hyperlipidemia type Social History Tobacco [...] the past 12 months, has t he [email or web address], gas, oil or water company threatened to [...] Description 01/24/2025 9:15 AM EDT Office Visit [facility] MEDICINE [address] [place] [address] [phone] Wanda Hough CNM 230 [place] [address] documented as of this encounter Visit Diagnoses Diagnosis Hyperlipidemia, unspecified hyperlipidemia type documented in this encounter Additional Health Concerns Assessment Noted Time PHQ-9 Depression Total Score: 14 024 9:42 AM EDT documented as of this encounter Care Teams Seasonal Driver Relationship Specialty Start Date End Date Diamond Blake MD [address] [place], [place] [phone] PCP - General Internal Medicine 06/30/23 Zechariah Bradley Plywood And Veneer RepairerApplication Support Lead 03/23/24 documented as of this encounter
--- OUTSIDE RECORDS SUMMARY | 2024-12-26 14:21 | XMS_ITS | Clinical Summary ---
Author Organization [employer] Address [address] [facility] 7t [place] [address] Care Team Providers Care Early Childhood Aide Classroom Name Role Phone Diamond Blake MD Primary [...] in the morning. 1 kit 023 Active albuterol (Ventolin HFA) 108 (90 Base) MCG/ACT inhaler INHALE 2 PUFFS BY MOUTH EVERY 4 HOURS NEEDED 18 g 1 024 Active lidocaine (Lidoderm) 5 % patchIndications :Chronic pain of both knees,Acute pain of left shoulder APPLY 1 PATCH TOPICALLY TO SKIN, LEAVE ON FOR 12 HOURS AND OFF FOR 12 HOURS DIRECTED 30 patch 2 024 Active montelukast (Singulair) 10 MG tabletIndication [...] Once per day. 90 tablet 025 Active D3 Super Strength 50 MCG (2000 UT) capsule TAKE 1 CAPSULE BY MOUTH EVERY MORNING 90 capsule 1 025 Active levothyroxine (Synthroid, Levoxyl) 125 MCG tabletIndication s:Hypothyroidism , unspecified type TAKE 1 TABLET BY MOUTH EVERY MORNING BEFORE BREAKFAST 90 tablet 1 025 Active D3 Super Strength 50 MCG (2000 UT) capsule TAKE 1 CAPSULE BY MOUTH EVERY MORNING 90 capsule 1 024 2024 Discontinued atorvastatin (Lipitor) 10 MG tabletIndication s:Hyperlipidemia , unspecified hyperlipidemia type Take 1 tablet (10 mg) by mouth Once per day. 90 tablet 024 2024 Discontinued( Reorder (will not trigger notification to Pharmacy)) levothyroxine (Synthroid, Levoxyl) 125 MCG tabletIndication s:Hypothyroidism , unspecified type Take 1 tablet (125 mcg) by mouth before breakfast. 90 tablet 024 2024 Discontinued Tirzepatide-Weig ht Management (Zepbound) 5 MG/0.5ML solution [...] in her new apartment. We had the [facility] department come up and talk with her. They recommended a referral to care management. Referral placed. PHQ: 0 STI: reports no partner at this time. Pap: Last memory was in [place], approximately 5 years ago. Substance use: Denies [...] shortly cant remember date. Eye exam: Sees [facility] eye care. Dental home: Had [facility] dental appointment that she missed. [...] LDL-C. Eb LOPEZ et al. [place]. 2013;310(19): 3458-2372 (http://[employer].Pressly/faq/PXM715) Chol/HDLC Ratio <5.0 (calc) 4.1 3.8 4.0 [...] see if there was an error. The slab off mill tender was able to find the lab orders. I discussed with patient if there was an issue with her blood work someone would contact her to set up and appointment. Osteopenia 04/17/2017 Vitamin D deficiency 04/17/2017 Resolved Problems Problem Noted Date Diagnosed Date Resolved Date Black tongue 08/18/2023 10/09/2023 Anemia 04/17/2017 08/18/2023 Encounters Date Type Department Care Team Description 12/21/2024 Refill [facility] MED & PEDS [address] [place] [address] Diamond Blake MD Hypothyroidism, unspecified type 12/20/2024 Refill [facility] MED & PEDS [address] [place] [address] Diamond Blake MD Hyperlipidemia, unspecified hyperlipidemia type 12/01/2024 Travel 11/30/2024 Refill [facility] MED & PEDS [address] [place] [address] Diamond Blake MD 11/02/2024 Telephone [facility] MEDICINE [address] [place] [address] Diamond Blake MD Care Coordination (ICP care plan) 11/02/2024 Patient Outreach [facility] MEDICINE [address] [place] [address] Diamond Blake MD 10/29/2024 Refill [facility] MEDICINE [address] [place] [address] Diamond Blake MD Venous stasis dermatitis of both lower extremities 10/25/2024 Refill [facility] MEDICINE [address] [place] [address] Sultana Parra RN Hypertension, unspecified type 10/25/2024 Refill [facility] MED & PEDS [address] [place] [address] Diamond Blake MD Hypertension, unspecified type 10/24/2024 Refill [facility] MEDICINE [address] [place] [address] Diamond Blake MD 10/21/2024 Refill [facility] MEDICINE [address] [place] [address] Diamond Blake MD 10/17/2024 10:30 AM EST Clinical Support [facility] DIABETES/NUTRITION [address] [place] [address] Hypertension, essential (Primary Dx); Obesity due to excess calories, unspecified obesity severity 10/17/2024 Travel 10/10/2024 Refill [facility] MEDICINE [address] [place] [address] Zaida Christy MD from Last 3 Months Immunizations Name Administration Dates Next Due Influenza injectable quadriv alent IIV4 with preservative 07/21/2018,09/30/2017 Influenza injectable quadriv alent preservative free 08/18/2023,12/02/2021,08/29/2020,2018 Influenza, seasonal, injecta ble, preservative free 08/30/2024,08/02/2024 Pfizer Covid-19 Vaccine 12+ 08/30/2024,,12/30/2023 Pneumococcal Conjugate PCV 20 08/18/2023 RSV Bivalent [...] 01/24/2025 9:15 AM EDT Office Visit [facility] MEDICINE [address] [place] [address] Alyce Gallo CNM [address] [place] [address] Health Maintenance Due Date Last Done Comments [...] 08/30/2025 08/30/2024 Depression Screening 08/30/2025 08/30/2024, 04/27/20 Diabetes: Hemoglobin A1C 09/05/2025 024, 02/19/2024, 08/28/2023, [...] AM EST) Hemoglobin A1c 5.7 <6.0 % [facility] Comment:Hemoglobin A1C Refer ence Range Adults: 4.8 - 6.0 % Non diabetic: < 6.0 % Goal: < 7.0 %Additional Action Suggested: > 8.0 %Note: Hemoglobin A1c results are invalid for patients with abnormal amounts of HbF. Blood transfusions may impact the HbA1c concentration in the patient sample. Estimated Average Glucose 117 mg/dL [facility] Comment:eAG = Estimated ave rage glucose which is %A1C expressed asaverage glucose, using the formula of the L3J-XegqnauJpxddye Glucose study (ADAG), Diabetes Care, Vol.31,#8,May. 2007 Blood Venous blood specimen / Unknown 09/05/2024 8:25 AM EST 09/05/2024 11:36 AM EST us Diamond Barry MD LAB BLOOD ORDERAB LES Final Result [facility] [address] [place] [phone] * Lipid Panel, Standard (09/05/2024 8:25 AM EST) Triglycerides 134 <150 mg/dL [facility] Comment:Desirable Triglyceri de: less than 150 mg/dLBorderline High Triglyceride 150-199 mg/dLHigh Triglyceride: 200-499 mg/dLVery High Triglyceride: greater than or equal to 5OO mg/dL Cholesterol 152 <200 mg/dL [facility] Comment:Desirable Cholestero l: less than 200 mg/dLBorderline High Cholesterol: 200-239 mg/dLHigh Cholesterol: greater than 239 mg/dL LDL Cholesterol Calculated 70 <100 mg/dL [facility] Comment:Desirable LDL: less than 100 mg/dLNear Optimal/Above Optimal LDL: 110- 129 mg/dLBorderline High LDL: 130-159 mg/dLHigh LDL: 160-189 mg/dLVery High LDL: greater than or equal to 190 mg/dL HDL Cholesterol 56 >40 mg/dL [facility] Comment:Desirable HDL: great er than 40 mg/dL Note: This HDL assay may give artificially low results in patients with liver disease. Blood Venous blood specimen / Unknown 09/05/2024 8:25 AM EST 09/05/2024 11:36 AM EST Diamond Barry MD LAB BLOOD ORDERAB LES Final Result Performing Organization Address City/[facility]/ZIP Co de Phone Number [facility] [address] [place] [phone] * HPV mRNA E6/E7 w/Reflex to HPV Genotypes 16, 18/45 (01/28/2024 11:09 AM EDT) HPV nRNA E6/E7 Not Detected Not Detected [facility] Comment:Methodology: Transcr iption-Mediated AmplificationThis assay detects E6/E7 viral messenger RNA (mRNA) from 14high-risk HPV types (16,18,31,33,35,39,45,51,52,56,58,59,66,68).Cervical sources are required for HPV testing.If a vaginal source from a patient who has had atotal hysterectomy with removal of cervix wassubmitted, please contact the testing laboratoryfor alternative testing options.For additional information, please refer tohttp://education.Vyyo/faq/BYP012n0(This link if provided for information/educational purposes only.)THIS TEST WAS PERFORMED AT:[facility] [place] [phone] CHANG MD HPV mRNA E6/E7 [facility] HPV 16 RNA [facility] HPV 18/45 RNA [facility] 01/28/2024 11:0 9 AM EDT 02/02/2024 12:00 PM EDT us Alyce Gallo CNM LAB CYTOLOGY ORDERABLES F inal Result Performing Organization Address City/[facility]/ZIP Co de Phone Number [facility] [address] [place] [phone] * Pap Smear (01/28/2024 11:09 AM EDT) Swab Cervix uteri structure / Unknown 01/28/2024 11:09 AM EDT 02/02/2024 12:00 PM EDT [facility] - 02/17/2024 6:59 AM EDT ----- ------- Name: Diamond Grider ? Age/Sex: 63/F ? : 1960 Unit#: [id number] ?? Attend Dr: ALYCE GALLO CNM ?Re01/28/24 ?Status: DEP REF ? [facility] ? Disch: ? ----- ------- SPEC : [id number] ? RECD: 02/02/24-1200 ? STATUS: ??SOUT ? REQ NUM: [id number] ? SELENE: 01/28/24-1109 ? SUBM DR: ALYCE GALLO CNM ? ENTERED: ??02/02/24 ?SP TYPE: Pap Smr ?OTHR : ? [...] 66, 68) ?? HPV testing performed by [employer] [facility], [place], [place]. ??See reference laboratory ?? portion of the EMR for entire report. ?Clinical Information LMP: Postmenopausal Previous PAP test: Unknown date/findings ? Material Received ?? ThinPrep-Vaginal/Cervical ----- ------- Signed (signature on file) RIANNA Han (ASCP) 02/17/24 0659 ? ----- ------- ? END OF REPORT ? us Alyce Gallo CNM LAB CYTOLOGY ORDERABLES F inal Result [facility] [address] [place] [phone] [phone] * BI Mammogram Screening Tomosynthesis Bilateral (01/05/2024 10:40 AM EDT) Anatomical Region Laterality Modality Breast Bilateral Mammography 01/05/2024 10:4 0 AM EDT Narrative 01/27/2024 12:19 AM EDT ? [facility] [place] ? [address] ?[place] [id number] ? Mammography Report ? Signed ? Patient: Diamond Grider ?MR#: ?? [id number] ? : 1960 ?Acct:[id number] ? Age/Sex: 63 / F ?ADM Date: 03/19/24 ? Loc: HO.MAMMO ? Attending Dr: Fay Weinstein MD ? Ordering Physician: FAY WEINSTEIN MD ?Results: 1Neg ?? ative ? Date of Service: 01/05/24 ?Follow Up: 1 Year From Orig ?? inal Mammogram ? Procedure(s): MM tomosynthesis screening BI ?? Accession Number(s): [id number] ? cc: FAY WEINSTEIN MD; Diamond Blake [...] MD in OV> ? 01/27/2414 ? DD/ 39 ? TD/TT: ? Town Planner: ? Procedure Note [place], Image - [facility]/27/[address] [facility] [address] [facility] [address] [place] [address] Mammography Report Signed Patient: Diamond Grider EMR#: [id number] : 1960Acct:[id number] Age/Sex: 63 / FADM Date: 01/05/24 Loc: HO.MAMMO Attending Dr: Fay Weinstein MD Ordering Physician: FAY WEINSTEIN MDResults: 1Neg ative Date of Service: 01/05/24Follow Up: 1 Year From Orig inal Mammogram Procedure(s): MM tomosynthesis screening BI Accession Number(s): [id number] cc: FAY WEINSTEIN MD; Diamond Blake MD [...] in OV> 01/27/24 0015 DD/ 1040 TD/TT: Town Planner: [facility] External Provider IMG BI PROCEDURES Final Result * Hepatitis C Antibody with Reflex to HCV, RNA, Quantitative, Real-Time PCR (08/28/2023 9:03 AM EST) Hepatitis C Antibody Nonreactive Nonreactive [facility] Comment:Antibodies to HCV no t detected; does not exclude early acuteHCV infection. Blood Venous blood specimen / Unknown 08/28/2023 9:03 AM EST 08/28/2023 11:14 AM EST Diamond Barry MD LAB BLOOD ORDERAB LES Final Result [facility] [address] [place] [phone] * (ABNORMAL) Colonoscopy (07/21/2023) Colonoscopy Abnormal( A) Normal Comment:polyps(??4-5 mm sess ile polyp??and??6-8 mm sessile polyps s/p removal-Bx : (mild hyperplastic changes) ,internal hemorrhoids,diverticular??disease??Repeat Colonoscopy in 1-2 years due to fair prep Narrative Diamond Balke MD - 07/21/2023 ??polyps(??4-5 mm sessile polyp??and??6-8 mm sessile polyps s/p removal-Bx : (mild hyperplastic changes) ,internal hemorrhoids,diverticular??disease??Repeat Colonoscopy in 1-2 years due to fair prep us Historical Provider HEALTH MAINTENANCE Final Result from Last 3 Months or Most Recently Relevant to Health Maintenance Insurance [facility] [address] [address] [place] ST[place] AD[place] Care Teams Early Childhood Aide Classroom Relationship Specialty Start Date End Date Diamond Blake MD [address] [place] [address] PCP - General Internal Medicine 06/30/23 Zechariah Bradley Lubricator GranulatorBoard Saw Runner 03/23/24
--- OUTSIDE RECORDS SUMMARY | 2024-12-26 14:21 | XMS_ITS | Encounter Summary ---
Author Organization [employer] [facility] Address [address] [facility] 7t [place] [address] Care Team Providers Care Inspector Clip On Sunglasses Name Role Phone Kailash Trevizo Primary Care Provider Unavail able Diamond Blake MD Primary Care Pro vider Encounter Details Date Type Department Care Team (Late st Contact Info) Description 06/02/2023 Abstract [facility] [address] [place] [address] Mervin Davisaris [address] [place] [address] Social History Tobacco Use Types Packs/Day Years [...] Description 01/24/2025 9:15 AM EDT Office Visit [facility] MEDICINE [address] [place] [address] Wanda Hough CNM [address] [place] [address] documented as of this encounter Visit Diagnoses Not on filedocumented in this encounter Additional Health Concerns Assessment Noted Time PHQ-9 Depression Total Score: 15 12/12/ 023 2:22 PM EST documented as of this encounter Care Teams Inspector Clip On Sunglasses Relationship Specialty Start Date End Date Kailash Trevizo AGNP PCP - General Family Medicine 11/13/22 06/29/23 Diamond Blake MD [address] [place] [id number] PCP - General Internal Medicine 06/30/23 Zechariah Bradley Lathe MechanicReporting Specialist 03/23/24 documented as of this encounter
--- OUTSIDE RECORDS SUMMARY | 2024-12-26 14:21 | XMS_ITS | Encounter Summary ---
Author Organization [employer] Address [address] [facility] [address] 7[address] [place] [address] Care Team Providers Care Paint Sprayer Sandblaster Name Role Phone Kailash Trevizo Primary Care Provider Unavail able Diamond Blake MD Primary Care Pro vider Reason for Visit * Reason Comments Med Refill Encounter Details Date Type Department Care Team (Late st Contact Info) Description 02/11/2023 Refill [facility] [address] [place] [address] Otoniel Bella MD [address] [place] [address] Chronic pain of both knees; Acute pain [...] 9:15 AM EDT Office Visit [facility] [address] [place] [address] Wanda Hough CNM [address] [place] [address] documented as of this encounter Visit Diagnoses Diagnosis Chronic pain of both knees Acute pain of left shoulder documented in this encounter Additional Health Concerns Assessment Noted Time PHQ-9 Depression Total Score: 15 12/12/ 023 2:22 PM EST documented as of this encounter Care Teams Paint Sprayer Sandblaster Relationship Specialty Start Date End Date Kailash Trevizo AGNP PCP - General Family Medicine 11/13/22 06/29/23 Diamond Blake MD [address] [place] [address] PCP - General Internal Medicine 06/30/23 Zechariah Bradley Yeast MakerSlip Cover Operator 03/23/24 documented as of this encounter
--- OUTSIDE RECORDS SUMMARY | 2024-12-26 14:21 | XMS_ITS | Encounter Summary ---
Author Organization [employer] Address [address] [facility] 7 [place] [address] Care Team Providers Care Shredder/Granulator Operator Name Role Phone Diamond Blake MD Primary Care Pro vider Reason for Visit * Reason Onset Date Comments Med Refill 07/07/2023 Encounter Details Date Type Department Care Team (Late st Contact Info) Description 07/07/2023 Refill [facility] MED & PEDS [address] [place] [address] Nava Moss MD [address] [place] [address] Severe chronic obstructive pulmonary disease (CMS/HCC) Social [...] 9:15 AM EDT Office Visit [facility] MEDICINE [address] [place] [address] Wanda Hough CNM [address] [place], [place] [phone] documented as of this encounter Visit Diagnoses Diagnosis Severe chronic obstructive pulmonary disease (CMS/HCC) Chronic airway obstruction, not elsewhere classified documented in this encounter Additional Health Concerns Assessment Noted Time PHQ-9 Depression Total Score: 15 12/12/ 023 2:22 PM EST documented as of this encounter Care Teams Shredder/Granulator Operator Relationship Specialty Start Date End Date Diamond Blake MD [address] [place] [address] PCP - General Internal Medicine 06/30/23 Zechariah Bradley Link Trainer TeacherCollet Maker 03/23/24 documented as of this encounter
--- OUTSIDE RECORDS SUMMARY | 2024-12-26 14:21 | XMS_ITS | Encounter Summary ---
Author Organization [facility] Address [address] [place] [address] 7t [place] [address] Care Team Providers Care Attendant Child Activity Name Role Phone Diamond Blake MD Primary Care Pro vider Reason for Visit * Reason Onset Date Comments Med Refill 07/07/2023 Encounter Details Date Type Department Care Team (Late Contact Info) Description 07/07/2023 Refill [facility] MEDICINE [address] [place] [address] Kailash Trevizo AGNP Severe chronic obstructive pulmonary [...] Description 01/24/2025 9:15 AM EDT Office Visit [facility] MEDICINE [address] [place], [place] [phone] Wanda Hough CNM [address] [place], [place] [phone] documented as of this encounter Visit Diagnoses Diagnosis Severe chronic obstructive pulmonary disease (CMS/HCC) Chronic airway obstruction, not elsewhere classified Hypertension, unspecified type Hyperlipidemia, unspecified hyperlipidemia type documented in this encounter Additional Health Concerns Assessment Noted Time PHQ-9 Depression Total Score: 15 023 2:22 PM EST documented as of this encounter Care Teams Attendant Child Activity Relationship Specialty Start Date End Date Diamond Blake MD [address] [place] [id number] PCP - General Internal Medicine 06/30/23 Zechariah Bradley Installation SpecialistAdvisory Internship 03/23/24 documented as of this encounter
--- OUTSIDE RECORDS SUMMARY | 2024-12-26 14:21 | XMS_ITS | Encounter Summary ---
Author Organization [employer] Address [address] [place] [address] 7t [place] [address] Care Team Providers Care Production Estimator Name Role Phone Diamond Blake MD Primary Care Pro vider Reason for Visit * Reason Onset Date Comments Med Refill 07/07/2023 Encounter Details Date Type Department Care Team (Late st Contact Info) Description 07/07/2023 Refill [facility]C MED & PEDS [address] [place] [address] Lay Avila MD [address] [place] [address] Social History Tobacco Use Types Packs/Day Years [...] AM EDT Office Visit [facility] MEDICINE [address] [place] [address] Wanda Hough CNM [address] [place] [address] documented as of this encounter Visit Diagnoses Not on filedocumented in this encounter Additional Health Concerns Assessment Noted Time PHQ-9 Depression Total Score: 15 12/12/ 023 2:22 PM EST documented as of this encounter Care Teams Production Estimator Relationship Specialty Start Date End Date Diamond Blake MD [address] [place] [address] PCP - General Internal Medicine 06/30/23 Zechariah Bradley Boilermaker HelperSupervisor Mold Shop 03/23/24 documented as of this encounter
--- OUTSIDE RECORDS SUMMARY | 2024-12-26 14:21 | XMS_ITS | Encounter Summary ---
Author Organization [employer] Address [address] [facility] 7t [place] [address] Care Team Providers Care Seed Analyst Name Role Phone Diamond Blake MD Primary Care Pro vider Reason for Visit * Reason Comments Med Refill Encounter Details Date Type Department Care Team ([facility] st Contact Info) Description 10/25/2024 Refill [facility]S [address] [place] [address] Diamond Blake MD [address] [place] [address] Hypertension, unspecified type Social History Tobacco Use [...] Description 01/24/2025 9:15 AM EDT Office Visit [facility] MEDICINE [address] [place] [address] Wanda Hough CNM [address] [place] [address] documented as of this encounter Visit Diagnoses Diagnosis Hypertension, unspecified type documented in this encounter Additional Health Concerns Assessment Noted Time PHQ-9 Depression Total Score: 14 024 9:42 AM EDT documented as of this encounter Care Teams Seed Analyst Relationship Specialty Start Date End Date Diamond Blake MD [address] [place] [address] PCP - General Internal Medicine 06/30/23 Zechariah Bradley Data Operations LeaderTranscript Clerk 03/23/24 documented as of this encounter
--- OUTSIDE RECORDS SUMMARY | 2024-12-26 14:21 | XMS_ITS | Encounter Summary ---
Author Organization [employer] Address [address] [facility] [address] 7[address] [place] [address] Care Team Providers Care Television Picture Tube Rebuilder Name Role Phone Diamond Blake MD Primary [...] Description 01/24/2025 9:15 AM EDT Office Visit [facility] MEDICINE [address] [place] [address] Wanda Hough CNM [address] [place], [place] [phone] documented as of this encounter Visit Diagnoses Not on filedocumented in this encounter Additional Health Concerns Assessment Noted Time PHQ-9 Depression Total Score: 14 024 9:42 AM EDT documented as of this encounter Care Teams Television Picture Tube Rebuilder Relationship Specialty Start Date End Date Diamond Blake MD [address] [place] [phone] PCP - General Internal Medicine 06/30/23 Zechariah Bradley Training Program AssistantThermometer Production Worker 03/23/24 documented as of this encounter
--- OUTSIDE RECORDS SUMMARY | 2024-12-26 14:21 | XMS_ITS | Encounter Summary ---
Author Organization [employer] Address [address] [facility] 7t [place] [address] Care Team Providers Care Programmer Business Name Role Phone Diamond Blake MD Primary Care Pro vider Reason for Visit * Reason Comments Med Refill Encounter Details Date Type Department Care Team ([facility] st Contact Info) Description 12/21/2024 Refill [facility] [address] [place] [address] Diamond Blake MD [address] [place] [address] Hypothyroidism, unspecified type Social History Tobacco Use [...] Description 01/24/2025 9:15 AM EDT Office Visit [facility] MEDICINE [address] [place] [address] Wanda Hough CNM [address] [place] [address] documented as of this encounter Visit Diagnoses Diagnosis Hypothyroidism, unspecified type documented in this encounter Additional Health Concerns Assessment Noted Time PHQ-9 Depression Total Score: 14 024 9:42 AM EDT documented as of this encounter Care Teams Programmer Business Relationship Specialty Start Date End Date Diamond Blake MD [address] [place] [address] PCP - General Internal Medicine 06/30/23 Zechariah Bradley Manager Of Regulatory AffairsDirector Of Database Marketing 03/23/24 documented as of this encounter
--- OUTSIDE RECORDS SUMMARY | 2024-12-26 14:21 | XMS_ITS | Encounter Summary ---
Author Organization [employer] Address [address] [facility] 7t [place] [address] Care Team Providers Care Coach Builder Name Role Phone Diamond Blake MD Primary Care Pro vider Reason for Visit * Reason Comments Med Refill Encounter Details Date Type Department Care Team (Late st Contact Info) Description 01/29/2024 Refill [facility] [address] [place] [address] Diamond Blake MD [address] [place] [address] Social History Tobacco Use Types Packs/Day Years [...] Description 01/24/2025 9:15 AM EDT Office Visit [facility] [address] [place] [address] Wanda Hough CNM [address] [place] [address] documented as of this encounter Visit Diagnoses Not on filedocumented in this encounter Additional Health Concerns Assessment Noted Time PHQ-9 Depression Total Score: 12 023 11:15 AM EST documented as of this encounter Care Teams Coach Builder Relationship Specialty Start Date End Date Diamond Blake MD [address] [place] [phone] PCP - General Internal Medicine 06/30/23 Zechariah Bradley Assistant CounselAssembly Supervisor 03/23/24 documented as of this encounter
--- OUTSIDE RECORDS SUMMARY | 2024-12-26 14:21 | XMS_ITS | Encounter Summary ---
Author Organization [employer] [facility] Address [address] [place] [address] 7 [place] [address] Care Team Providers Care Die Engraving Supervisor Name Role Phone Diamond Blake MD Primary Care Pro vider Reason for Visit * Reason Onset Date Comments Med Refill 07/08/2023 Encounter Details Date Type Department Care Team (Late st Contact Info) Description 07/08/2023 Refill [facility] [address] [place] [address] Diamond Blake MD [address] [place] [address] Severe chronic obstructive pulmonary disease (CMS/HCC); Hypertension, [...] 9:15 AM EDT Office Visit [facility] [address] [place] [address] Wanda Hough CNM [address] [place], [place] [phone] documented as of this encounter Visit Diagnoses Diagnosis Severe chronic obstructive pulmonary disease (CMS/HCC) Chronic airway obstruction, not elsewhere classified Hypertension, unspecified type Hyperlipidemia, unspecified hyperlipidemia type Chronic pain of both knees Acute pain of left shoulder documented in this encounter Additional Health Concerns Assessment Noted Time PHQ-9 Depression Total Score: 15 023 2:22 PM EST documented as of this encounter Care Teams Die Engraving Supervisor Relationship Specialty Start Date End Date Diamond Blake MD [address] [place], [place] [phone] PCP - General Internal Medicine 06/30/23 Zechariah Bradley Bingo FloaterSole Rougher 03/23/24 documented as of this encounter
[2024-12-27 08:51] VITALS: BP 144/62; PULSE 86; RESP 15; TEMP 36.6; O2SAT 95; BMI 35.9
--- NOTE | 2024-12-27 09:05 | MHC.SHP ---
Pre-Procedural Eval Section A - 24 Hr Update-Section A only Date of Service: 12/27/24 The patient is an INPATIENT: No Changes since office visit: No Cold of Flu in the past 2 weeks, No New Medical Problems, No Changes in Medication and No Patient answered all questions The patient has been examined within 24 hours of the surgical procedure. The History & Physical has been completed within 30 days and I have reviewed it.: Yes Section B - Complete if H&P > 30 days Chief Complaint: Trigger finger, left ring finger Allergies: Allergies Allergy/AdvReac Type Severity Reaction Status Date / Time animal dander Allergy Rash Verified 12/27/24 08:52 tree and shrub pollen Allergy Rash Verified 12/27/24 08:52 Plan Diagnosis/Plan: Unchanged I have reviewed the history and physical and performed a pertinent physical examination on my patient. No changes have occurred unless specified. Time Spent With Patient Time: Total time managing care of this patient today ____ minutes.
--- NOTE | 2024-12-27 09:05 | W.PM.OPN ---
Operative Note Operative Note Date of Service: 12/27/24 Narrative: Operative Note Preop diagnosis: 1. Right ring finger Trigger finger Postop diagnosis: 1. Right ring finger Trigger finger Procedure: 1. Right ring finger A1 alice release Surgeon: Hannah Barrios MD Quality Assurance Assistant: Hank TRENT Anesthesia: local block using 1% lidocaine with epinephrine Findings: No locking or catching after A1 alice release EBL: Less than 5 mL Tourniquet time: None Specimens: None Complications: None Disposition: Brought to recovery room in stable condition Plan: Follow-up for 10-14 days for wound check and suture removal Indications: The patient is 64 years old, with a right ring finger trigger finger that has been unresponsive to nonoperative management. The risks and benefits of operative treatment including but not limited to risk of damage to blood vessels, nerves, tendons, infection, persistent pain, persistent symptoms, recurrence or possible need for additional surgery were discussed with the patient and the patient wishes to proceed with surgery. Procedure: Once consent was obtained a local block was performed in the preop area using a combination of 1% lidocaine with epinephrine. The patient was then brought back to the operating suite and placed on the operative table in supine position. The right upper extremity was prepped and draped in a standard surgical fashion. Once assured that we had a good block, a 1.5 cm oblique incision was made centered over the A1 alice of the right ring finger . The incision was made through the skin to the subcutaneous tissues using a #15 blade. Careful dissection was made down to the level of the A1 alice using tenotomy scissors, with care being taken to protect the nearby neurovascular structures. A longitudinal incision was made in the A1 alice 1st using a #15 blade, then using tenotomy scissors under direct visualization. The A1 alice was noted to be thickened. Following our A1 alice release, we no longer saw any locking or catching of the digit with flexion and extension. Once satisfied with our A1 alice release the wound was copiously irrigated with normal saline and hemostasis was obtained with a brief period of local pressure. The skin edges were reapproximated with some 5.0 nylon suture material and a sterile dressing was applied. The patient appears to have tolerated the procedure well and with no complications. All digits were well vascularized at the conclusion of the case.
[2024-12-27 10:10] VITALS: BP 126/65; PULSE 73; RESP 22; TEMP 36.1; O2SAT 96
== END 2024-12-27 10:14 | disposition home or self-care (01) ==
PROVIDERS: PCP Student in an Organized Health Care Education/Training Program; Visit Provider Orthopaedic Surgery
PROC: (CPT 26055; principal; 2024-12-27 10:30)
DX: M65.342 Trigger finger, left ring finger (principal); M24.841 Other specific joint derangements of right hand, not elsewhere classified; M79.644 Pain in right finger(s); M79.89 Other specified soft tissue disorders; M85.80 Other specified disorders of bone density and structure, unspecified site; I10 Essential (primary) hypertension; R91.8 Other nonspecific abnormal finding of lung field; J45.909 Unspecified asthma, uncomplicated; E06.3 Autoimmune thyroiditis; Z87.442 Personal history of urinary calculi; G47.30 Sleep apnea, unspecified; Z98.890 Other specified postprocedural states
CPT/HCPCS: 26055; J0171; J2003

== ENCOUNTER → 2024-12-27 08:38 | Outpatient (BNV) | payer MEDICAID, SELFPAY | PROVIDERS: PCP Student in an Organized Health Care Education/Training Program; Visit Provider Orthopaedic Surgery | DX: M65.341 Trigger finger, right ring finger (principal) | CPT/HCPCS: 26055 ==

== ENCOUNTER 2024-12-29 12:46 | Outpatient (AMB) | payer MEDICAID, SELFPAY ==
[2024-12-29 12:54] VITALS: BP 110/74; PULSE 80; O2SAT 94; BMI 35.9
--- NOTE | 2024-12-29 12:54 | A.OFFVIS_ITS ---
Vital Signs 12/29/24 12:54 Height 5 ft 2 in Weight 196 lb 3.382 oz BMI 35.9 BP 110/74 Blood Pressure Location Rt brachial Position Sitting Pulse 80 Pulse Source Pulse Oximeter Pulse Oximetry (%) 94 Oxygen Delivery Method Room Air Intake Visit Reasons: Hypothyroidism Intake Note: New patient present today for Hypothyroidism office visit. Vp Revenue Cycle Required: Yes Vp Revenue Cycle Language: Cupboard Builder Services: Vp Revenue Cycle Present (Stir) Vp Revenue Cycle Name: Geovany #[id number] Accompanied by: Daughter Allergies animal dander Allergy (Verified 12/29/24 12:55) Rash tree and shrub pollen Allergy (Verified 12/29/24 12:55) Rash Medication List - Last Reconciled 12/29/24 by Ana Mora MD albuterol sulfate 2.5 mg (3 mL) inhalation Q4-6H PRN albuterol sulfate 90 mcg/actuation (Ventolin HFA) 2 puffs inhalation QID PRN 30 days ammonium lactate 12% appl topical atorvastatin 10 mg PO QAM calcium citrate 500 mg (2 x 250 mg calcium) PO BID cholecalciferol (vitamin D3) (Vitamin D3) 50 mcg PO DAILY compress.stocking,knee,reg,med 15-20 cm cyclobenzaprine 10 mg PO TID PRN diphenhydramine HCl (Benadryl Allergy) 50 mg PO Q8H PRN epinephrine 0.3 mg (0.3 mL) IM .q 10min x2 fluticasone propionate 50 mcg/actuation 2 sprays intranasal DAILY pyvcqvswuxs-hbqyezzqj-acfloqpy 200-62.5-25 mcg (Trelegy Ellipta) 1 ea inhalation DAILY furosemide (Lasix) 20 mg PO DAILY 7 days hydrochlorothiazide 25 mg PO DAILY hydroxyzine HCl 25 mg PO TID PRN 7 days ibuprofen 800 mg PO Q8H PRN levothyroxine 125 mcg PO DAILY loratadine 10 mg PO QAM magnesium oxide 400 mg PO BEDTIME 30 days montelukast 10 mg PO QPM 30 days naproxen 500 mg PO BID 30 days nebulizers As directed omalizumab (Xolair) 75 mg (0.5 mL) subcut Q2W 28 days omalizumab (Xolair) 150 mg subcut Q2W 28 days oxycodone-acetaminophen 5-325 mg 1 tab PO Q6H PRN pyridoxine (vitamin B6) 100 mg PO DAILY 90 days sennosides (senna) 17.2 mg PO BEDTIME PRN sertraline 25 mg PO QAM triamcinolone acetonide 0.1% appl topical BID HPI Comments Details: 64-year-old female, today for follow-up visit for hypothyroidism. Here today with daughter. she was previously seeing Dr. Mayfield, last visit February 2023. She was discharge to primary care office as she was doing well on her levothyroxine dose, and had normal calcium levels after history of primary hyperparathyroidism status post right superior parathyroidectomy And left hemithyroidectomy 12/01/2018. HPI 08/26/2018: FNA of a left lower pole thyroid nodule consistent with a AUS, unfortunately Afirma sample was insufficient for RNA. She also had primary hyperparathyroidism. Status post right superior parathyroidectomy and left hemithyroidectomy 12/01/2018 with PTH dropped from 126-26 pg/mL. 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 she was not sure of her levothyroxine dosage today. We called [facility]. During the appointment Currently on levothyroxine 125 mcg daily , last picked 12/23 for 90 days supply dose was changed from 150 mcg to 125 mcg daily in sep 2024 Patient currently denies heat or cold intolerance, diarrhea or constipation, hair loss, palpitation, anxiety, weight changes, mood changes, changes in appearance of eyes or vision changes, tremors, increased diaphoresis or dry skin. ? does report tiredness. Patient denies any difficulty swallowing, pain on swallowing or voice changes or difficulty breathing. Patient denies any history of childhood neck radiation. Denies having ever used lithium, amiodarone or biotin supplements. Patient denies any family history of thyroid cancer . Daughter has thyroid disease. Physical exam General: sitting comfortably in no acute distress HEENT: normocephalic/atraumatic Neck: supple, symmetrical, surgical scar noted Cardiac: normal heart sounds Pulm: normal breath sounds B/L, no added breath sounds Abd: not distended, no tenderness Extremities: no edema, no signs of myxedema Laboratory Tests 02/19/24 09/05/24 09/14/24 08:42 08:25 08:37 Calcium 9.6 TSH 1.97 0.15 L 0.15 L Free T4 1.14 1.66 1.31 US thyroid 11/10/17 Right Thyroid Lobe: 2.6 x 0.8 x 1.0 cm, volume 1.1 ml. Left Thyroid Lobe: 2.8 x 0.8 x 1.1 cm, volume 1.3 ml. Isthmus: 0.2 cm in maximum TRV dimension. PARENCHYMA: The gland echo texture is heterogeneous. Thyroid vascularity is normal. RIGHT THYROID LOBE: No nodules. ISTHMUS: No nodules. LEFT THYROID LOBE: There is 1 nodule seen. 1. Location: Lower pole. Size: 1.4 x 0.7 x 0.8 cm. Nodule characteristics: Hypoechoic, smoothly marginated with intra nodular flow. No lymphadenopathy is seen in the tissue surrounding the thyroid gland. No soft tissue masses seen extrinsic or posterior to the right thyroid lobe. 11/06/17 NUCLEAR MEDICINE PARATHYROID SCAN WITH SPECT-CT SPECT CT images demonstrate right-sided nodule with increased activity noted in the right paraesophageal location posterior and inferior to the right thyroid lobe measuring approximately 1.2 x 0.8 cm. This raises the possibility of parathyroid adenoma. Differential possibility includes prominent lymph node. [facility] Medical History (Updated 12/29/24 @ 13:48 by Ana Mora MD) Snoring Renal calculi Limb swelling Sleep apnea Hx of renal calculi Pulmonary nodules Chronic allergic rhinitis Asthma Hypertension Non-toxic multinodular goiter Osteopenia Fernando's disease Hypothyroidism History of primary hyperparathyroidism Surgical History (Updated 12/29/24 @ 12:57 by JEAN CARLOS Early) Hx of hand surgery Status post fine needle aspiration Hx of cystoscopy Hx of lithotripsy History of surgery on arm Hx of parathyroidectomy H/O partial thyroidectomy Hx of tubal ligation Family History Maternal Grandmother Diabetes Father No problems noted. Mother Hypertension Asthma Social History Are you a primary direct care supervisor to a significant other at home: No Do you presently have visiting nurse or other home services: No Alcohol intake: never Patient Tobacco Use Status: Never used Tobacco Current occupational status: disabled Current occupation: right hand dominant Physical Exam Vital Signs: Last Vital Signs Pulse 80 12/29/24 12:54 BP 110/74 12/29/24 12:54 Pulse Ox 94 12/29/24 12:54 Oxygen Delivery Method Room Air 12/29/24 12:54 BMI result Body Mass Index 35.9 Assessment & Plan Assessment & Plan (1) Hypothyroidism: Code(s): E03.9 - Hypothyroidism, unspecified Category: Medical Qualifiers: Hypothyroidism type: due to Fernando's thyroiditis Qualified Code(s): E06.3 - Autoimmune thyroiditis Plan: 64-year-old female with a history of Fernando's disease, who had a history of left-sided thyroid nodule status post left hemithyroidectomy in 2019 with benign pathology. She is now being seen for hypothyroidism. Currently on levothyroxine 125 mcg daily. Last set of labs are from August 2024, when TSH was noted to be low at 0.15 with normal free T4, at that time primary care physician reduced dose of levothyroxine from 150 mcg to 125 mcg daily. At this time I have asked her to repeat blood work. Plan: - continue levothyroxine 125 mcg daily -do blood work today, we will send prescription of levothyroxine based on results of TSH and free T4 - follow up in 3 months Plan I spent 30 minutes in reviewing the record, seeing the patient and documenting in the medical record. 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
--- OUTSIDE RECORDS SUMMARY | 2024-12-29 16:06 | XMS_ITS | Encounter Summary ---
Author Organization [facility] Address [address] [place] [address] 7 [place] [address] Care Team Providers Care Investigative Agent Name Role Phone Diamond Blake MD Primary Care Pro vider Reason for Visit * Reason Comments Med Refill Encounter Details Date Type Department Care Team (Late st Contact Info) Description 07/06/2023 Refill [facility] [address] [place] [address] Kailash Trevizo AGNP Hypertension, unspecified type Social [...] 9:15 AM EDT Office Visit [facility] [address] [place] [address] Wanda Hough CNM [address] [place] [address] documented as of this encounter Visit Diagnoses Diagnosis Hypertension, unspecified type documented in this encounter Additional Health Concerns Assessment Noted Time PHQ-9 Depression Total Score: 15 12/12/ 023 2:22 PM EST documented as of this encounter Care Teams Investigative Agent Relationship Specialty Start Date End Date Diamond Blake MD [address] [place] [id number] PCP - General Internal Medicine 06/30/23 Zechariah Bradley Cattle SprayerSurgery Nurse 03/23/24 documented as of this encounter
--- OUTSIDE RECORDS SUMMARY | 2024-12-29 16:06 | XMS_ITS | Encounter Summary ---
Author Organization [employer] Address [address] [place] [address] [address] [place] [address] Care Team Providers Care Federal District Clerk Name Role Phone Diamond Blake MD Primary Care Pro vider Reason for Visit * Reason Onset Date Comments Med Refill 07/07/2023 Encounter Details Date Type Department Care Team (Late st Contact Info) Description 07/07/2023 Refill [facility] [address] [place] [address] Lay Avila MD [address] [place] [address] Social History Tobacco Use Types Packs/Day Years [...] Description 01/24/2025 9:15 AM EDT Office Visit [facility] [address] [place] [address] Wanda Hough CNM [address] [place] [address] documented as of this encounter Visit Diagnoses Not on filedocumented in this encounter Additional Health Concerns Assessment Noted Time PHQ-9 Depression Total Score: 15 12/12/ 023 2:22 PM EST documented as of this encounter Care Teams Federal District Clerk Relationship Specialty Start Date End Date Diamond Blake MD [address] [place] [address] PCP - General Internal Medicine 06/30/23 Zechariah Bradley Risk Control ManagerChief Port Director 03/23/24 documented as of this encounter
--- OUTSIDE RECORDS SUMMARY | 2024-12-29 16:06 | XMS_ITS | Encounter Summary ---
Author Organization [employer] Address [address] [place] [address] Care Team Providers Care Briquette Machine Operator Helper Name Role Phone Kailash Trevizo Primary Care Provider Unavail able Diamond Blake MD Primary Care Pro vider Reason for Visit * Reason Comments Med Refill Encounter Details Date Type Department Care Team (Late st Contact Info) Description 02/11/2023 Refill [facility] [address] [place] [address] Otoniel Bella MD [address] [place] [address] Chronic pain of both knees; Acute pain [...] Description 01/24/2025 9:15 AM EDT Office Visit [facility] [address] [place] [address] Wanda Hough CNM [address] [place] [address] documented as of this encounter Visit Diagnoses Diagnosis Chronic pain of both knees Acute pain of left shoulder documented in this encounter Additional Health Concerns Assessment Noted Time PHQ-9 Depression Total Score: 15 12/12/ 023 2:22 PM EST documented as of this encounter Care Teams Briquette Machine Operator Helper Relationship Specialty Start Date End Date Kailash Trevizo AGNP PCP - General Family Medicine 11/13/22 06/29/23 Diamond Blake MD [address] [place] [address] PCP - General Internal Medicine 06/30/23 Zechariah Bradley Nuclear Fuels Reclamation EngineerEnd Packer 03/23/24 documented as of this encounter
--- OUTSIDE RECORDS SUMMARY | 2024-12-29 16:06 | XMS_ITS | Encounter Summary ---
Author Organization [employer] Address [address] [place] [address] [address] [place] [address] Care Team Providers Care Circuit Rider Name Role Phone Diamond Blake MD Primary Care Pro vider Reason for Visit * Reason Onset Date Comments Med Refill 07/07/2023 Encounter Details Date Type Department Care Team (Late st Contact Info) Description 07/07/2023 Refill [facility] PEDS [address] [place] [address] Lay Avila MD [address] [place] [address] Social History Tobacco Use Types Packs/Day Years [...] Description 01/24/2025 9:15 AM EDT Office Visit [facility] [address] [place] [address] Wanda Hough CNM [address] [place] [address] documented as of this encounter Visit Diagnoses Not on filedocumented in this encounter Additional Health Concerns Assessment Noted Time PHQ-9 Depression Total Score: 15 12/12/ 023 2:22 PM EST documented as of this encounter Care Teams Circuit Rider Relationship Specialty Start Date End Date Diamond Blake MD [address] [place] [address] PCP - General Internal Medicine 06/30/23 Zechariah Bradley Brass Wind Instrument MakerSawmill Relief Worker 03/23/24 documented as of this encounter
--- OUTSIDE RECORDS SUMMARY | 2024-12-29 16:06 | XMS_ITS | Encounter Summary ---
Author Organization [employer] Address [address] [facility] [address] [place] [address] Care Team Providers Care Want Ad Receiver Name Role Phone Diamond Blake MD Primary Care Pro vider Reason for Visit * Reason Onset Date Comments Med Refill 12/20/2024 Encounter Details Date Type Department Care Team (Late st Contact Info) Description 12/20/2024 Refill [facility] [address] [place] [address] Diamond Blake MD [address] [place] [address] Hyperlipidemia, unspecified hyperlipidemia type Social History Tobacco [...] the past 12 months, has t he [employer], gas, oil or water company threatened to [...] Description 01/24/2025 9:15 AM EDT Office Visit [facility] [address] [place] [phone] Wanda Hough CNM [address] [place] [address] documented as of this encounter Visit Diagnoses Diagnosis Hyperlipidemia, unspecified hyperlipidemia type documented in this encounter Additional Health Concerns Assessment Noted Time PHQ-9 Depression Total Score: 14 024 9:42 AM EDT documented as of this encounter Care Teams Want Ad Receiver Relationship Specialty Start Date End Date Diamond Blake MD [address] [place], [place] [phone] PCP - General Internal Medicine 06/30/23 Zechariah Bradley Manager RfidAtomic Welder 03/23/24 documented as of this encounter
--- OUTSIDE RECORDS SUMMARY | 2024-12-29 16:06 | XMS_ITS | Encounter Summary ---
Author Organization [employer] Address [address] [address] [place] [address] Care Team Providers Care Drafting Layout Worker Name Role Phone Diamond Blake MD [...] 01/24/2025 9:15 AM EDT Office Visit [facility] [address] [place] [address] Wanda Hough CNM [address] [place], [place] [phone] documented as of this encounter Visit Diagnoses Not on filedocumented in this encounter Additional Health Concerns Assessment Noted Time PHQ-9 Depression Total Score: 14 024 9:42 AM EDT documented as of this encounter Care Teams Drafting Layout Worker Relationship Specialty Start Date End Date Diamond Blake MD [address] [place] [id number] PCP - General Internal Medicine 06/30/23 Zechariah Bradley Adjutant GeneralCopy Director 03/23/24 documented as of this encounter
--- OUTSIDE RECORDS SUMMARY | 2024-12-29 16:06 | XMS_ITS | Clinical Summary ---
Author Organization [employer] Address [address] 7t [place] [address] Care Team Providers Care Commercial Horticulture Instructor Name Role Phone Diamond Blake MD Primary [...] DRY SKIN 385 g 3 025 Active atorvastatin (Lipitor) 10 MG tabletIndication [...] BEFORE BREAKFAST 90 tablet 1 025 Active Tirzepatide-Weig ht Management (Zepbound) 5 MG/0.5ML solution auto-injector Inject 0.5 mL (5 mg) under the skin 1 (one) time per week. 2 mL 025 2024 Active D3 Super Strength 50 MCG (2000 [...] in her new apartment. We had the [facility] department come up and talk with her. They recommended a referral to care management. Referral placed. PHQ: 0 STI: reports no partner at this time. Pap: Last memory was in [place], approximately 5 years ago. Substance use: Denies [...] shortly cant remember date. Eye exam: Sees [facility] eye care. Dental home: Had [facility] dental appointment that she missed. She is [...] LDL-C. Eb LOPEZ et al. [place]. 2013;310(19): 8839-7196 (http://PropertyBridge.Unioncy/faq/ZLL975) Chol/HDLC Ratio <5.0 (calc) 4.1 3.8 4.0 [...] see if there was an error. The calibration laboratory technician was able to find the lab orders. I discussed with patient if there was an issue with her blood work someone would contact her to set up and appointment. Osteopenia 04/17/2017 Vitamin D deficiency 04/17/2017 Resolved Problems Problem Noted Date Diagnosed Date Resolved Date Black tongue 08/18/2023 10/09/2023 Anemia 04/17/2017 08/18/2023 Encounters Date Type Department Care Team Description 12/29/2024 Orders Only GENERIC EXTERNAL DATA DEPARTMENT Provider, Generic External Data 12/28/2024 Refill [facility] CHC MED & PEDS [address] [place] [address] Diamond Blake MD 12/21/2024 Refill [facility]ED[facility] [address] [place] [address] Diamond Blake MD Hypothyroidism, unspecified type 12/20/2024 Refill [facility] MED [facility]ED[facility] [address] [place] [address] Diamond Blake MD Hyperlipidemia, unspecified hyperlipidemia type 12/01/2024 Travel 11/30/2024 Refill [facility] MED [facility] PED[facility] [address] [place] [address] Diamond Blake MD 11/02/2024 Telephone [facility] MEDICINE [address] [place] [phone] Diamond Blake MD Care Coordination (ICP care plan) 11/02/2024 Patient Outreach [facility] [address] [place] [phone] Diamond Blake MD 10/29/2024 Refill [facility] [address] [place] [phone] Diamond Blake MD Venous stasis dermatitis of both lower extremities 10/25/2024 Refill [facility] [address] [place] [phone] Sultana Parra, GABBY Hypertension, unspecified type 10/25/2024 Refill [facility] PED[facility] [address] [place] [address] Diamond Blake MD Hypertension, unspecified type 10/24/2024 Refill [facility] MEDICINE [address] [place] [address] Diamond Blake MD 10/21/2024 Refill [facility] [address] [place] [address] Diamond Blake MD 10/17/2024 10:30 AM EST Clinical Support [facility] DIABETES/NUTRITION [address] [place] [address] Hypertension, essential (Primary Dx); Obesity due to excess calories, unspecified obesity severity 10/17/2024 Travel 10/10/2024 Refill [facility] MEDICINE [address] [place] [address] Zaida Christy MD from Last 3 Months [...] Description 01/24/2025 9:15 AM EDT Office Visit [facility] MEDICINE [address] [place] [address] Alyce Gallo, CNM [address] [place] [address] Health Maintenance Due Date Last Done Comments [...] HPV/Cotest 01/27/2029 01/28/2024 Lipid Panel 09/05/2029 09/05/2024, 12/2023, 08/28/2023, Additional history exists Zoster Vaccines [...] Procedure Name Priority Date/Time Associated Diagnosis Comments TSH Routine 12/29/2024 2:18 PM EDT T4, FREE Routine 12/29/2024 2:18 PM EDT HEMOGLOBIN A1C Routine 09/05/2024 8:25 AM EST [...] Recently Relevant to Health Maintenance Results * TSH (12/29/2024 2:18 PM EDT) Thyroid Stimulating Hormone 1.20 0.32 - 4.0 uIU/mL [facility] Comment:TSH 3rd Generation ( [facility]) 12/29/2024 2:18 PM EDT 12/29/2024 2:18 PM EDT us Generic External Data Provider LAB BLOOD ORDERAB LES Final Result Performing Organization Address City/[facility]/ZIP Co de Phone Number [facility] [address] [place] [phone] * T4, Free (12/29/2024 2:18 PM EDT) Free T4 (Free Thyroxine) 1.31 0.71 - 1.85 ng/dL [facility] 12/29/2024 2:18 PM EDT 12/29/2024 2:18 PM EDT us Generic External Data Provider LAB BLOOD ORDERAB LES Final Result Performing Organization Address [facility] Co de Phone Number [facility] [address] [place] [phone] * Hemoglobin A1c (09/05/2024 8:25 AM EST) Hemoglobin A1c 5.7 <6.0 % [facility] Comment:Hemoglobin A1C Refer ence Range Adults: 4.8 - 6.0 % Non diabetic: < 6.0 % Goal: < 7.0 %Additional Action Suggested: > 8.0 %Note: Hemoglobin A1c results are invalid for patients with abnormal amounts of HbF. Blood transfusions may impact the HbA1c concentration in the patient sample. Estimated Average Glucose 117 mg/dL [facility] Comment:eAG = Estimated ave rage glucose which is %A1C expressed asaverage glucose, using the formula of the D8S-UahhxycCeccqku Glucose study (ADAG), Diabetes Care, Vol.31,#8,2007 Blood Venous blood specimen / Unknown 09/05/2024 8:25 AM EST 09/05/2024 11:36 AM EST us Diamond Barry MD LAB BLOOD ORDERAB LES Final Result [facility] [address] [place] [phone] * Lipid Panel, Standard (09/05/2024 8:25 AM EST) Triglycerides 134 <150 mg/dL [facility] Comment:Desirable Triglyceri de: less than 150 mg/dLBorderline High Triglyceride 150-199 mg/dLHigh Triglyceride: 200-499 mg/dLVery High Triglyceride: greater than or equal to 5OO mg/dL Cholesterol 152 <200 mg/dL [facility] Comment:Desirable Cholestero l: less than 200 mg/dLBorderline High Cholesterol: 200-239 mg/dLHigh Cholesterol: greater than 239 mg/dL LDL Cholesterol Calculated 70 <100 mg/dL [facility] Comment:Desirable LDL: less than 100 mg/dLNear Optimal/Above Optimal LDL: 110- 129 mg/dLBorderline High LDL: 130-159 mg/dLHigh LDL: 160-189 mg/dLVery High LDL: greater than or equal to 190 mg/dL HDL Cholesterol 56 >40 mg/dL [facility] Comment:Desirable HDL: great er than 40 mg/dL Note: This HDL assay may give artificially low results in patients with liver disease. Blood Venous blood specimen / Unknown 09/05/2024 8:25 AM EST 09/05/2024 11:36 AM EST Diamond Barry MD LAB BLOOD ORDERAB LES Final Result Performing Organization Address City/[facility]/ZIP Co de Phone Number [facility] [address] [place] [phone] * HPV mRNA E6/E7 w/Reflex to HPV Genotypes 16, 18/45 (01/28/2024 11:09 AM EDT) HPV nRNA E6/E7 Not Detected Not Detected [facility] Comment:Methodology: Transcr iption-Mediated AmplificationThis assay detects E6/E7 viral messenger RNA (mRNA) from 14high-risk HPV types (16,18,31,33,35,39,45,51,52,56,58,59,66,68).Cervical sources are required for HPV testing.If a vaginal source from a patient who has had atotal hysterectomy with removal of cervix wassubmitted, please contact the testing laboratoryfor alternative testing options.For additional information, please refer tohttp://education.PageLever/faq/HXY838g8(This link if provided for information/educational purposes only.)THIS TEST WAS PERFORMED AT:[employer] [place] [phone] CHANG MD HPV mRNA E6/E7 TNP [facility] HPV 16 RNA [facility] HPV 18/45 RNA [facility] 01/28/2024 11:0 9 AM EDT 02/02/2024 12:00 PM EDT us Alyce Gallo CNM LAB CYTOLOGY ORDERABLES F inal Result Performing Organization Address City/[facility]/ZIP Co de Phone Number [facility] [address] [place] [phone] * Pap Smear (01/28/2024 11:09 AM EDT) Swab Cervix uteri structure / Unknown 01/28/2024 11:09 AM EDT 02/02/2024 12:00 PM EDT Narrative [facility] - 02/17/2024 6:59 AM EDT ----- ------- Name: Diamond Grider ? Age/Sex: 63/F ? : 1960 Unit#: [id number] ?? Attend Dr: ALYCE GALLO Bela ?Re01/28/24 ?Status: DEP REF ? [facility] ? Disch: ? ----- ------- SPEC : [id number] ? RECD: 02/02/24-1200 ? STATUS: ??SOUT ? REQ NUM: [id number] ? SELENE: 01/28/24-1109 ? SUBM DR: ALYCE [...] 66, 68) ?? HPV testing performed by [employer], [place], [place]. ??See reference laboratory ?? portion of the EMR for entire report. ?Clinical Information LMP: Postmenopausal Previous PAP test: Unknown date/findings ? Material Received ?? ThinPrep-Vaginal/Cervical ----- ------- Signed (signature on file) RIANNA Han (ASCP) 02/17/24 0659 ? ----- ------- ? END OF REPORT ? us Alyce Gallo CNM LAB CYTOLOGY ORDERABLES F inal Result [facility] [address] [place] [phone] * BI Mammogram Screening Tomosynthesis Bilateral (01/05/2024 10:40 AM EDT) Anatomical Region Laterality Modality Breast Bilateral Mammography 01/05/2024 10:4 0 AM EDT Narrative 01/27/2024 12:19 AM EDT ? [facility] [place] ? [address] ?[place] [id number] ? Mammography Report ? Signed ? Patient: Diamond Grider ?MR#: ?? [id number] ? : 1960 ?Acct:[id number] ? Age/Sex: 63 / F ?ADM Date: 03/19/24 ? Loc: HO.MAMMO ? Attending Dr: Fay Weinstein MD ? Ordering Physician: FYA WEINSTEIN MD ?Results: 1Neg ?? ative ? Date of Service: 01/05/24 ?Follow Up: 1 Year From Orig ?? inal Mammogram ? Procedure(s): MM tomosynthesis screening BI ?? Accession Number(s): [id number] ? cc: FAY WEINSTEIN MD; Diamond Blake MD ? EXAMINATION: ?? MM SCREENING DIGITAL BREAST TOMOSYNTHESIS, BILATERAL ? CLINICAL INFORMATION: ? Screening. Asymptomatic. ? COMPARISON: ?? Mammography: This study is compared with prior exams dating back to ?? 2018. ? TECHNIQUE: ?? Digital breast tomosynthesis is [...] MD in OV> ? 01/27/2414 ? DD/ ? TD/TT: ? Visual C Developer: ? Procedure Note Torey, Image - 01/27/2024 [facility] [place] [address] Mammography Report Signed Patient: Diamond Grider EMR#: [id number] : 1960Acct:[id number] Age/Sex: 63 / FADM Date: 01/05/24 Loc: HO.MAMMO Attending Dr: Fay Weinstein MD Ordering Physician: FAY WEINSTEIN MDResults: 1Neg ative Date of Service: 01/05/24Follow Up: 1 Year From Orig inal Mammogram Procedure(s): MM tomosynthesis screening BI Accession Number(s): [id number] cc: FAY WEINSTEIN MD; Diamond Blake MD [...] in OV> 01/27/24 0015 DD/ 1040 TD/TT: Visual C Developer: [facility] External Provider IMG BI PROCEDURES Final Result * Hepatitis C Antibody with Reflex to HCV, RNA, Quantitative, Real-Time PCR (08/28/2023 9:03 AM EST) Hepatitis C Antibody Nonreactive Nonreactive [facility] Comment:Antibodies to HCV no t detected; does not exclude early acuteHCV infection. Blood Venous blood specimen / Unknown 08/28/2023 9:03 AM EST 08/28/2023 11:14 AM EST Diamond Barry MD LAB BLOOD ORDERAB LES Final Result [facility] [address] [place] [phone] * (ABNORMAL) Colonoscopy (07/21/2023) Colonoscopy Abnormal( [...] Most Recently Relevant to Health Maintenance Insurance [facility] [address] [address] [facility] ST[facility] ADULT Care Teams Commercial Horticulture Instructor Relationship Specialty Start Date End Date Diamond Blake MD [address] [place] [address] PCP - General Internal Medicine 06/30/23 Zechariah Bradley Automation Controls SpecialistProcess Control Engineer 03/23/24
--- OUTSIDE RECORDS SUMMARY | 2024-12-29 16:06 | XMS_ITS | Encounter Summary ---
Author Organization [employer] [facility] Address [address] 7t [place] [address] Care Team Providers Care Ultrasound Spec Name Role Phone Kailash Trevizo Primary Care Provider Unavail able Diamond Blake MD Primary Care Pro vider Encounter Details Date Type Department Care Team (Late st Contact Info) Description 06/02/2023 Abstract [facility] [address] [place] [address] Mervin Davisaris [address] [place] [address] Social History Tobacco Use Types Packs/Day Years [...] Description 01/24/2025 9:15 AM EDT Office Visit [facility] [address] [place] [address] Wanda Hough CNM [address] [place] [address] documented as of this encounter Visit Diagnoses Not on filedocumented in this encounter Additional Health Concerns Assessment Noted Time PHQ-9 Depression Total Score: 15 12/12/ 023 2:22 PM EST documented as of this encounter Care Teams Ultrasound Spec Relationship Specialty Start Date End Date Kailash Trevizo AGNP PCP - General Family Medicine 11/13/22 06/29/23 Diaomnd Blake MD [address] [place] [phone] PCP - General Internal Medicine 06/30/23 Zechariah Bradley Web Application Dev SpecialistCook Apprentice 03/23/24 documented as of this encounter
--- OUTSIDE RECORDS SUMMARY | 2024-12-29 16:06 | XMS_ITS | Encounter Summary ---
Author Organization [facility] Address [address] [place] [address] 7t [place] [address] Care Team Providers Care Individual Small Group Instructor Name Role Phone Diamond Blake MD Primary Care Pro vider Reason for Visit * Reason Onset Date Comments Med Refill 07/07/2023 Encounter Details Date Type Department Care Team (Late Contact Info) Description 07/07/2023 Refill [facility] [address] [place] [address] Kailash Trevizo AGNP Severe chronic obstructive pulmonary [...] AM EDT Office Visit [facility] [address] [place], [place] [phone] Wanda Hough CNM [address] [place], [place] [phone] documented as of this encounter Visit Diagnoses Diagnosis Severe chronic obstructive pulmonary disease (CMS/HCC) Chronic airway obstruction, not elsewhere classified Hypertension, unspecified type Hyperlipidemia, unspecified hyperlipidemia type documented in this encounter Additional Health Concerns Assessment Noted Time PHQ-9 Depression Total Score: 15 023 2:22 PM EST documented as of this encounter Care Teams Individual Small Group Instructor Relationship Specialty Start Date End Date Diamond Blake MD [address] [place] [phone] PCP - General Internal Medicine 06/30/23 Zechariah Bradley Wrinkle ChaserComputer Trainer 03/23/24 documented as of this encounter
--- OUTSIDE RECORDS SUMMARY | 2024-12-29 16:06 | XMS_ITS | Encounter Summary ---
Author Organization [employer] Address [address] [facility] 7t [place] [address] Care Team Providers Care Wind Energy Systems Installer Name Role Phone Diamond Blake MD Primary Care Pro vider Reason for Visit * Reason Comments Med Refill Encounter Details Date Type Department Care Team ([facility] st Contact Info) Description 10/25/2024 Refill [facility] MED & PEDS [address] [place] [address] Diamond Blake MD [address] [place] [address] Hypertension, unspecified type Social History Tobacco Use [...] Office Visit [facility] MED[facility] [address] [place] [phone] Wanda Hough CNM [address] [place] [address] documented as of this encounter Visit Diagnoses Diagnosis Hypertension, unspecified type documented in this encounter Additional Health Concerns Assessment Noted Time PHQ-9 Depression Total Score: 14 024 9:42 AM EDT documented as of this encounter Care Teams Wind Energy Systems Installer Relationship Specialty Start Date End Date Diamond Blake MD [address] [place] [address] PCP - General Internal Medicine 06/30/23 Zechariah Bradley Digital AssistantCompliance Specialist 03/23/24 documented as of this encounter
--- OUTSIDE RECORDS SUMMARY | 2024-12-29 16:06 | XMS_ITS | Encounter Summary ---
Author Organization [employer] Address [address] [facility] 7t [place] [address] Care Team Providers Care Other Spatial Scientist Name Role Phone Diamond Blake MD Primary Care Pro vider Reason for Visit * Reason Onset Date Comments Med Refill 11/30/2024 Encounter Details Date Type Department Care Team ([facility] st Contact Info) Description 11/30/2024 Refill [facility] [address] [place] [address] Diamond Blake MD [address] [place] [address] Social History Tobacco Use Types Packs/Day Years [...] Description 01/24/2025 9:15 AM EDT Office Visit [facility] MED[facility] [address] [place] [phone] Wanda Hough CNM [address] [place] [address] documented as of this encounter Visit Diagnoses Not on filedocumented in this encounter Additional Health Concerns Assessment Noted Time PHQ-9 Depression Total Score: 14 024 9:42 AM EDT documented as of this encounter Care Teams Other Spatial Scientist Relationship Specialty Start Date End Date Diamond Blake MD [address] [place] [address] PCP - General Internal Medicine 06/30/23 Zechariah Bradley Wheel CleanerResearch Home Economist 03/23/24 documented as of this encounter
--- OUTSIDE RECORDS SUMMARY | 2024-12-29 16:06 | XMS_ITS | Encounter Summary ---
Author Organization [employer] Address [address] [facility] 7t [place] [address] Care Team Providers Care Bulk Plant Agent Name Role Phone Diamond Blake MD Primary Care Pro vider Reason for Visit * Reason Comments Med Refill Encounter Details Date Type Department Care Team ([facility] st Contact Info) Description 12/21/2024 Refill [facility] MED [facility]EDS [address] [place] [address] Diamond Blake MD [address] [place] [address] Hypothyroidism, unspecified type Social History Tobacco Use [...] 9:15 AM EDT Office Visit [facility] [address] [place] [phone] Wanda Hough CNM [address] [place] [address] documented as of this encounter Visit Diagnoses Diagnosis Hypothyroidism, unspecified type documented in this encounter Additional Health Concerns Assessment Noted Time PHQ-9 Depression Total Score: 14 024 9:42 AM EDT documented as of this encounter Care Teams Bulk Plant Agent Relationship Specialty Start Date End Date Diamond Blake MD [address] [place] [address] PCP - General Internal Medicine 06/30/23 Zechariah Bradley Angle BenderInformation Services Assistant 03/23/24 documented as of this encounter
--- OUTSIDE RECORDS SUMMARY | 2024-12-29 16:06 | XMS_ITS | Encounter Summary ---
Author Organization [employer] Address [address] [facility] 7t [place] [address] Care Team Providers Care Catalog Specialist Name Role Phone Diamond Blake MD Primary Care Pro vider Reason for Visit * Reason Comments Med Refill Encounter Details Date Type Department Care Team (Late st Contact Info) Description 01/29/2024 Refill [facility] [address] [place] [address] Diamond Blake MD [address] [place] [address] Social History Tobacco Use Types Packs/Day Years [...] 9:15 AM EDT Office Visit [facility] MED[facility] [address] [place] [phone] Wanda Hough CNM [address] [place] [address] documented as of this encounter Visit Diagnoses Not on filedocumented in this encounter Additional Health Concerns Assessment Noted Time PHQ-9 Depression Total Score: 12 023 11:15 AM EST documented as of this encounter Care Teams Catalog Specialist Relationship Specialty Start Date End Date Diamond Blake MD [address] [place] [phone] PCP - General Internal Medicine 06/30/23 Zechariah Bradley Photographic SupervisorMarketing Performance Analyst 03/23/24 documented as of this encounter
--- OUTSIDE RECORDS SUMMARY | 2024-12-29 16:06 | XMS_ITS | Encounter Summary ---
Author Organization [email or web address] Address [address] [place] [address] Care Team Providers Care Bench Carpenter Name Role Phone Diamond Blake MD Primary Care Pro vider Encounter Details Date Type Department Care Team (Late st Contact Info) Description 12/29/2024 Orders Only GENERIC EXTERNAL DATA DEPARTMENT Provider, Generic External Data Social History Tobacco Use Types Packs/Day Years [...] Office Visit [facility] MED[facility] [address] [place] [address] Wanda Hough CNM [address] [place] [address] documented as of this encounter Procedures Procedure Name Priority Date/Time Associated Diagnosis Comments TSH Routine 12/29/2024 2:18 PM EDT T4, FREE Routine 12/29/2024 2:18 PM EDT documented in this encounter Results * TSH (12/29/2024 2:18 PM EDT) Thyroid Stimulating Hormone 1.20 0.32 - 4.0 uIU/mL [facility] Comment:TSH 3rd Generation ( [facility]) 12/29/2024 2:18 PM EDT 12/29/2024 2:18 PM EDT us Generic External Data Provider LAB BLOOD ORDERAB LES Final Result [facility] [address] [place] [phone] [phone] * T4, Free (12/29/2024 2:18 PM EDT) Free T4 (Free Thyroxine) 1.31 0.71 - 1.85 ng/dL [facility] 12/29/2024 2:18 PM EDT 12/29/2024 2:18 PM EDT us Generic External Data Provider LAB BLOOD ORDERAB LES Final Result [facility] [address] [place] [phone] documented in this encounter Visit Diagnoses Not on filedocumented in this encounter Additional Health Concerns Assessment Noted Time PHQ-9 Depression Total Score: 14 024 9:42 AM EDT documented as of this encounter Care Teams Bench Carpenter Relationship Specialty Start Date End Date Diamond Blake MD [address] [place] [address] PCP - General Internal Medicine 06/30/23 Zechariah Bradley Business Performance AdvisorSteward/Stewardess Club Car 03/23/24 documented as of this encounter
--- OUTSIDE RECORDS SUMMARY | 2024-12-29 16:06 | XMS_ITS | Encounter Summary ---
Author Organization [employer] Address [address] [facility] 7 [place] [address] Care Team Providers Care Bag Repairer Name Role Phone Diamond Blake MD Primary Care Pro vider Reason for Visit * Reason Onset Date Comments Med Refill 07/07/2023 Encounter Details Date Type Department Care Team (Late st Contact Info) Description 07/07/2023 Refill [facility] MED & PEDS [address] [place] [address] Nava Moss MD [address] [place] [address] Severe chronic obstructive pulmonary disease (CMS/HCC) Social [...] Description 01/24/2025 9:15 AM EDT Office Visit [facility] MEDICINE [address] [place] [address] Wanda Hough CNM [address] [place], [place] [phone] documented as of this encounter Visit Diagnoses Diagnosis Severe chronic obstructive pulmonary disease (CMS/HCC) Chronic airway obstruction, not elsewhere classified documented in this encounter Additional Health Concerns Assessment Noted Time PHQ-9 Depression Total Score: 15 12/12/ 023 2:22 PM EST documented as of this encounter Care Teams Bag Repairer Relationship Specialty Start Date End Date Diamond Blake MD [address] [place] [address] PCP - General Internal Medicine 06/30/23 Zechariah Bradley Toll Service ObserverSr. Manager Marketing 03/23/24 documented as of this encounter
--- OUTSIDE RECORDS SUMMARY | 2024-12-29 16:06 | XMS_ITS | Encounter Summary ---
Author Organization [employer] [facility] Address [address] [place] [address] 7 [place] [address] Care Team Providers Care Ditch Worker Name Role Phone Diamond Blake MD Primary Care Pro vider Reason for Visit * Reason Onset Date Comments Med Refill 07/08/2023 Encounter Details Date Type Department Care Team (Late st Contact Info) Description 07/08/2023 Refill [facility] MED[facility] [address] [place] [address] Diamond Blake MD 230 [place] [address] Severe chronic obstructive pulmonary disease (CMS/HCC); Hypertension, [...] 9:15 AM EDT Office Visit [facility] [address] [place] [address] Wanda Hough CNM [address] [place], [place] [phone] documented as of this encounter Visit Diagnoses Diagnosis Severe chronic obstructive pulmonary disease (CMS/HCC) Chronic airway obstruction, not elsewhere classified Hypertension, unspecified type Hyperlipidemia, unspecified hyperlipidemia type Chronic pain of both knees Acute pain of left shoulder documented in this encounter Additional Health Concerns Assessment Noted Time PHQ-9 Depression Total Score: 15 023 2:22 PM EST documented as of this encounter Care Teams Ditch Worker Relationship Specialty Start Date End Date Diamond Blake MD 230 [place], [place] [phone] PCP - General Internal Medicine 06/30/23 Zechariah Bradley Cad OperatorPowder Guard 03/23/24 documented as of this encounter
--- OUTSIDE RECORDS SUMMARY | 2024-12-29 16:06 | XMS_ITS | Encounter Summary ---
Author Organization [employer] Address [address] [facility] [address] 7t [place] [address] Care Team Providers Care Medical Doctor Md Name Role Phone Diamond Blake MD Primary Care Pro vider Reason for Visit * Reason Onset Date Comments Med Refill 07/07/2023 Encounter Details Date Type Department Care Team (Late st Contact Info) Description 07/07/2023 Refill [facility] [address] [place] [address] Otoniel Bella MD 230 [place] [address] Chronic pain of both knees; Acute pain [...] Description 01/24/2025 9:15 AM EDT Office Visit [facility] MEDICINE [address] [place] [address] Wanda Hough CNM [address] [place] [address] documented as of this encounter Visit Diagnoses Diagnosis Chronic pain of both knees Acute pain of left shoulder documented in this encounter Additional Health Concerns Assessment Noted Time PHQ-9 Depression Total Score: 15 12/12/ 023 2:22 PM EST documented as of this encounter Care Teams Medical Doctor Md Relationship Specialty Start Date End Date Diamond Blake MD 230 [place] [address] PCP - General Internal Medicine 06/30/23 Zechariah Bradley Water TechnicianGenetic Counsellor 03/23/24 documented as of this encounter
--- OUTSIDE RECORDS SUMMARY | 2024-12-29 16:06 | XMS_ITS | Encounter Summary ---
Author Organization [employer] Address [address] [facility] 7t [place] [address] Care Team Providers Care Program Development Manager Name Role Phone Diamond Blake MD Primary Care Pro vider Reason for Visit * Reason Comments Med Refill Encounter Details Date Type Department Care Team (Late st Contact Info) Description 10/24/2024 Refill [facility] MEDICINE 230 [place] [address] Diamond Blake MD [address] [place] [address] Social History Tobacco Use Types Packs/Day Years [...] Description 01/24/2025 9:15 AM EDT Office Visit [facility] MED[facility]INE [address] [place] [address] Wanda Hough CNM 230 [place] [address] documented as of this encounter Visit Diagnoses Not on filedocumented in this encounter Additional Health Concerns Assessment Noted Time PHQ-9 Depression Total Score: 14 024 9:42 AM EDT documented as of this encounter Care Teams Program Development Manager Relationship Specialty Start Date End Date Diamond Blake MD [address] [place] [address] PCP - General Internal Medicine 06/30/23 Zechariah Bradley Hand CoperCareer Based Intervention Coordinator 03/23/24 documented as of this encounter
--- OUTSIDE RECORDS SUMMARY | 2024-12-29 16:06 | XMS_ITS | Encounter Summary ---
Author Organization [employer] Address [address] [facility] [address] 7t [place] [address] Care Team Providers Care Supervisor Extrusion Name Role Phone Diamond Blake MD Primary Care Pro vider Reason for Visit * Reason Onset Date Comments Med Refill 09/28/2023 Encounter Details Date Type Department Care Team (Late st Contact Info) Description 09/28/2023 Refill [facility] [address] [place] [address] Zaida Christy MD 230 [place] [address] Hypertension, unspecified type Social History Tobacco Use [...] 9:15 AM EDT Office Visit [facility] MEDICINE [address] [place] [address] Wanda Hough CNM [address] [place] [address] [phone] documented as of this encounter Visit Diagnoses Diagnosis Hypertension, unspecified type documented in this encounter Additional Health Concerns Assessment Noted Time PHQ-9 Depression Total Score: 15 023 2:22 PM EST documented as of this encounter Care Teams Supervisor Extrusion Relationship Specialty Start Date End Date Diamond Blake MD [address] [place] [address] PCP - General Internal Medicine 06/30/23 Zechariah Bradley Chair MakerIndustrial Engineering Technician 03/23/24 documented as of this encounter
--- OUTSIDE RECORDS SUMMARY | 2024-12-29 16:06 | XMS_ITS | Encounter Summary ---
Author Organization [employer] Address [address] [facility] 7t [place] [address] Care Team Providers Care Simulation Specialist Name Role Phone Diamond Blake MD Primary Care Pro vider Reason for Visit * Reason Onset Date Comments Med Refill 12/28/2024 Encounter Details Date Type Department Care Team ([facility] st Contact Info) Description 12/28/2024 Refill [facility] MED & PEDS [address] [place] [address] Daimond Blake MD 230 [place] [address] Social History Tobacco Use Types Packs/Day Years [...] 9:15 AM EDT Office Visit [facility] MEDICINE [address] [place] [address] Wanda Hough CNM 230 [place] [address] documented as of this encounter Visit Diagnoses Not on filedocumented in this encounter Additional Health Concerns Assessment Noted Time PHQ-9 Depression Total Score: 14 024 9:42 AM EDT documented as of this encounter Care Teams Simulation Specialist Relationship Specialty Start Date End Date Diamond Blake MD 230 [place] [address] PCP - General Internal Medicine 06/30/23 Zechariah Bradley Implant CoordinatorStereo Compiler 03/23/24 documented as of this encounter
== END 2024-12-29 13:49 | disposition home or self-care (01) ==
LOC: HO.ENCR 12:47
PROVIDERS: PCP Internal Medicine; Visit Provider Student in an Organized Health Care Education/Training Program
DX: E06.3 Autoimmune thyroiditis (principal)
CPT/HCPCS: 99214

== ENCOUNTER 2024-12-29 12:46 | Outpatient (REF) | payer MEDICAID, SELFPAY ==
[2024-12-29 15:45] LABS: Free T4 (Free Thyroxine) 1.31 ng/dL (0.71-1.85)
--- OUTSIDE RECORDS SUMMARY | 2024-12-29 17:48 | XMS_ITS | Encounter Summary ---
Author Organization [employer] Address [address] [facility] [address] 7t [place] [address] Care Team Providers Care Financial Aid Counselor Name Role Phone Diamond Blake MD Primary [...] Description 01/24/2025 9:15 AM EDT Office Visit [facility] MEDICINE 230 [place] [address] Wanda Hough CNM [address] [place] [address] documented as of this encounter Procedures Procedure Name Priority Date/Time Associated Diagnosis Comments TSH Routine 12/29/2024 2:18 PM EDT T4, FREE Routine 12/29/2024 2:18 PM EDT documented in this encounter Results * TSH (12/29/2024 2:18 PM EDT) Thyroid Stimulating Hormone 1.20 0.32 - 4.0 uIU/mL [facility] Comment:TSH 3rd Generation ( [facility]) 12/29/2024 2:18 PM EDT 12/29/2024 2:18 PM EDT us Generic External Data Provider LAB BLOOD ORDERAB LES Final Result [facility] [address] [place] [address] [phone] * T4, Free (12/29/2024 2:18 PM EDT) Free T4 (Free Thyroxine) 1.31 0.71 - 1.85 ng/dL [facility] 12/29/2024 2:18 PM EDT 12/29/2024 2:18 PM EDT us Generic External Data Provider LAB BLOOD ORDERAB LES Final Result [facility] [address] [place] [address] [phone] documented in this encounter Visit Diagnoses Not on filedocumented in this encounter Additional Health Concerns Assessment Noted Time PHQ-9 Depression Total Score: 14 024 9:42 AM EDT documented as of this encounter Care Teams Financial Aid Counselor Relationship Specialty Start Date End Date Diamond Blake MD [address] [place] [address] PCP - General Internal Medicine 06/30/23 Zechariah Bradley Rayon WinderProcess Control Technician 03/23/24 documented as of this encounter
--- OUTSIDE RECORDS SUMMARY | 2024-12-29 17:48 | XMS_ITS | Encounter Summary ---
Author Organization [employer] Address [address] [facility] 7t [place] [address] Care Team Providers Care Rivet Heater Gas Name Role Phone Diamond Blake MD Primary Care Pro vider Reason for Visit * Reason Onset Date Comments Med Refill 12/28/2024 Encounter Details Date Type Department Care Team ([facility] st Contact Info) Description 12/28/2024 Refill [facility] MED & PEDS [address] [place] [address] Diamond Blake MD 230 [place] [address] Social History Tobacco Use Types Packs/Day Years [...] Description 01/24/2025 9:15 AM EDT Office Visit [facility] MEDICINE [address] [place] [address] Wanda Hough CNM [address] [place] [address] documented as of this encounter Visit Diagnoses Not on filedocumented in this encounter Additional Health Concerns Assessment Noted Time PHQ-9 Depression Total Score: 14 024 9:42 AM EDT documented as of this encounter Care Teams Rivet Heater Gas Relationship Specialty Start Date End Date Diamond Blake MD [address] [place] [address] PCP - General Internal Medicine 06/30/23 Zechariah Bradley Supervisor PlasteringDriver Messenger 03/23/24 documented as of this encounter
--- OUTSIDE RECORDS SUMMARY | 2024-12-29 17:48 | XMS_ITS | Encounter Summary ---
Author Organization [employer] Address [address] [facility] [address] 7t [place] [address] Care Team Providers Care Final Coat Sprayer Name Role Phone Diamond Blake MD Primary Care Pro vider Reason for Visit * Reason Onset Date Comments Med Refill 09/28/2023 Encounter Details Date Type Department Care Team (Late st Contact Info) Description 09/28/2023 Refill [facility] MED & PEDS [address] [place] [address] Zaida Christy MD 230 [place] [address] Hypertension, unspecified type Social History Tobacco Use [...] Description 01/24/2025 9:15 AM EDT Office Visit [facility] MEDICINE [address] [place] [phone] Wanda Hough CNM [address] [place] [address] [phone] documented as of this encounter Visit Diagnoses Diagnosis Hypertension, unspecified type documented in this encounter Additional Health Concerns Assessment Noted Time PHQ-9 Depression Total Score: 15 023 2:22 PM EST documented as of this encounter Care Teams Final Coat Sprayer Relationship Specialty Start Date End Date Diamond Blake MD [address] [place] [address] PCP - General Internal Medicine 06/30/23 Zechariah Bradley Stock HolderFish Processor 03/23/24 documented as of this encounter
--- OUTSIDE RECORDS SUMMARY | 2024-12-29 17:48 | XMS_ITS | Encounter Summary ---
Author Organization [employer] [facility] Address [address] [place] [address] 7 [place] [address] Care Team Providers Care Director Of Managed Services Name Role Phone Diamond Blake MD Primary Care Pro vider Reason for Visit * Reason Onset Date Comments Med Refill 07/08/2023 Encounter Details Date Type Department Care Team (Late st Contact Info) Description 07/08/2023 Refill [facility] MEDICINE 230 [place] [address] Diamond Blake MD 230 [place] [address] Severe chronic obstructive pulmonary disease (CMS/HCC); Hypertension, [...] 9:15 AM EDT Office Visit [facility] MEDICINE [address] [place] [address] Wanda Hough CNM [address] [place], [place] [phone] documented as of this encounter Visit Diagnoses [...] as of this encounter Care Teams Director Of Managed Services Relationship Specialty Start Date End Date Diamond Blake MD 230 [place], [place] [phone] PCP - General Internal Medicine 06/30/23 Zechariah Bradley Dye WeigherTrailer Rental Clerk 03/23/24 documented as of this encounter
--- OUTSIDE RECORDS SUMMARY | 2024-12-29 17:49 | XMS_ITS | Encounter Summary ---
Author Organization [employer] Address [address] [facility] 7t [place] [address] Care Team Providers Care Cabinet Installer Name Role Phone Diamond Blake MD Primary Care Pro vider Reason for Visit * Reason Onset Date Comments Med Refill 11/30/2024 Encounter Details Date Type Department Care Team ([facility] st Contact Info) Description 11/30/[address] [facility] MED & PEDS 505 [place] [address] Diamond Blake MD 230 [place] [address] Social History Tobacco Use Types Packs/Day Years [...] EDT Office Visit [facility] [address] [place] [address] Wanda Hough CNM 230 [place] [address] documented as of this encounter Visit Diagnoses Not on filedocumented in this encounter Additional Health Concerns Assessment Noted Time PHQ-9 Depression Total Score: 14 024 9:42 AM EDT documented as of this encounter Care Teams Cabinet Installer Relationship Specialty Start Date End Date Diamond Blake MD [address] [place] [address] PCP - General Internal Medicine 06/30/23 Zechariah Bradley [employer] Computer Science TeacherDirector Of Teaching And Learning 03/23/24 documented as of this encounter
--- OUTSIDE RECORDS SUMMARY | 2024-12-29 17:49 | XMS_ITS | Encounter Summary ---
Author Organization [employer] Address [address] [facility] [address] 7t [place] [address] Care Team Providers Care Liberal Arts And Humanities Chair Name Role Phone Diamond Blake MD Primary [...] 01/24/2025 9:15 AM EDT Office Visit [facility] MEDICINE [address] [place] [address] Wanda Hough CNM 230 [place], [place] [phone] documented as of this encounter Visit Diagnoses Not on filedocumented in this encounter Additional Health Concerns Assessment Noted Time PHQ-9 Depression Total Score: 14 024 9:42 AM EDT documented as of this encounter Care Teams Liberal Arts And Humanities Chair Relationship Specialty Start Date End Date Diamond Blake MD [address] [place] [address] [phone] PCP - General Internal Medicine 06/30/23 Zechariah Bradley Health OfficerFlaking Roll Operator 03/23/24 documented as of this encounter
--- OUTSIDE RECORDS SUMMARY | 2024-12-29 17:49 | XMS_ITS | Encounter Summary ---
Author Organization [employer] [facility] Address [address] [place] [address] 7t [place] [address] Care Team Providers Care Iuss Master Analyst Name Role Phone Diamond Blake MD Primary Care Pro vider Reason for Visit * Reason Onset Date Comments Med Refill 07/07/2023 Encounter Details Date Type Department Care Team (Late Contact Info) Description 07/07/2023 Refill [facility] [address] [place] [address] Kailash Trevizo AGNP Severe chronic obstructive pulmonary [...] [facility] [address] [place], [place] [phone] Wanda Hough CNM [address] [place], [place] [phone] documented as of this encounter Visit Diagnoses Diagnosis Severe chronic obstructive pulmonary disease (CMS/HCC) Chronic airway obstruction, not elsewhere classified Hypertension, unspecified type Hyperlipidemia, unspecified hyperlipidemia type documented in this encounter Additional Health Concerns Assessment Noted Time PHQ-9 Depression Total Score: 15 023 2:22 PM EST documented as of this encounter Care Teams Iuss Master Analyst Relationship Specialty Start Date End Date Diamond Blake MD [address] [place] [address] PCP - General Internal Medicine 06/30/23 Zechariah Bradley Distribution Center AssistantEasement Worker 03/23/24 documented as of this encounter
--- OUTSIDE RECORDS SUMMARY | 2024-12-29 17:49 | XMS_ITS | Encounter Summary ---
Author Organization [employer] Address [address] [facility] 7t [place] [address] Care Team Providers Care Linen Supervisor Name Role Phone Diamond Blake MD Primary Care Pro vider Reason for Visit * Reason Onset Date Comments Med Refill 12/20/2024 Encounter Details Date Type Department Care Team (Late st Contact Info) Description 12/20/[address] [facility] MED & PEDS [address] [place] [address] Diamond Blake MD 230 [place] [address] Hyperlipidemia, unspecified hyperlipidemia type Social History Tobacco [...] the past 12 months, has t he [employer], gas, oil or water company threatened to [...] 9:15 AM EDT Office Visit [facility] MEDICINE [address] [place] [address] [phone] Wanda Hough CNM 230 [place] [address] documented as of this encounter Visit Diagnoses Diagnosis Hyperlipidemia, unspecified hyperlipidemia type documented in this encounter Additional Health Concerns Assessment Noted Time PHQ-9 Depression Total Score: 14 024 9:42 AM EDT documented as of this encounter Care Teams Linen Supervisor Relationship Specialty Start Date End Date Diamond Blake MD [address] [place], [place] [phone] PCP - General Internal Medicine 06/30/23 Zechariah Bradley Form Block MakerShot Blaster 03/23/24 documented as of this encounter
--- OUTSIDE RECORDS SUMMARY | 2024-12-29 17:49 | XMS_ITS | Encounter Summary ---
Author Organization [employer] Address [address] [facility] [address] 7t [place] [address] Care Team Providers Care Biometry Teacher Name Role Phone Diamond Blake MD Primary Care Pro vider Reason for Visit * Reason Onset Date Comments Med Refill 07/07/2023 Encounter Details Date Type Department Care Team (Late st Contact Info) Description 07/07/2023 Refill [facility] [address] [place] [address] Otoniel Bella MD 230 [place] [address] Chronic pain of both knees; Acute pain [...] Description 01/24/2025 9:15 AM EDT Office Visit [facility] MEDICINE [address] [place] [address] Wanda Hough CNM [address] [place] [address] documented as of this encounter Visit Diagnoses Diagnosis Chronic pain of both knees Acute pain of left shoulder documented in this encounter Additional Health Concerns Assessment Noted Time PHQ-9 Depression Total Score: 15 12/12/ 023 2:22 PM EST documented as of this encounter Care Teams Biometry Teacher Relationship Specialty Start Date End Date Diamond Blake MD [address] [place] [address] PCP - General Internal Medicine 06/30/23 Zechariah Bradley Supervisor Fruit GradingEmployee Relations Administrator 03/23/24 documented as of this encounter
--- OUTSIDE RECORDS SUMMARY | 2024-12-29 17:49 | XMS_ITS | Encounter Summary ---
Author Organization [employer] Address [address] [facility] 7 [place] [address] Care Team Providers Care Shift Supervisor Name Role Phone Diamond Blake MD Primary Care Pro vider Reason for Visit * Reason Onset Date Comments Med Refill 07/07/2023 Encounter Details Date Type Department Care Team (Late st Contact Info) Description 07/07/2023 Refill [facility]EDS 505 [place] [address] Nava Moss MD 505 [place] [address] Severe chronic obstructive pulmonary disease (CMS/HCC) Social [...] 9:15 AM EDT Office Visit [facility] MEDICINE 230 [place] [address] Wanda Hough CNM 230 [place], [place] [phone] documented as of this encounter Visit Diagnoses Diagnosis Severe chronic obstructive pulmonary disease (CMS/HCC) Chronic airway obstruction, not elsewhere classified documented in this encounter Additional Health Concerns Assessment Noted Time PHQ-9 Depression Total Score: 15 12/12/ 023 2:22 PM EST documented as of this encounter Care Teams Shift Supervisor Relationship Specialty Start Date End Date Diamond Blake MD 230 [place] [address] PCP - General Internal Medicine 06/30/23 Zechariah Bradley Telephone Betting ClerkEvp Head Of [employer] Experience Strategy 03/23/24 documented as of this encounter
--- OUTSIDE RECORDS SUMMARY | 2024-12-29 17:49 | XMS_ITS | Encounter Summary ---
Author Organization [employer] Address [address] [place] [address] 7t [place] [address] Care Team Providers Care Trade Show Coordinator Name Role Phone Diamond Blake MD Primary Care Pro vider Reason for Visit * Reason Onset Date Comments Med Refill 07/07/2023 Encounter Details Date Type Department Care Team (Late st Contact Info) Description 07/07/2023 Refill [facility]EDS [address] [place] [address] Lya Avila MD 505 [place] [address] Social History Tobacco Use Types Packs/Day Years [...] 01/24/2025 9:15 AM EDT Office Visit [facility] MEDICINE 230 [place] [address] Wanda Hough CNM 230 [place] [address] documented as of this encounter Visit Diagnoses Not on filedocumented in this encounter Additional Health Concerns Assessment Noted Time PHQ-9 Depression Total Score: 15 12/12/ 023 2:22 PM EST documented as of this encounter Care Teams Trade Show Coordinator Relationship Specialty Start Date End Date Diamond Blake MD 230 [place] [address] PCP - General Internal Medicine 06/30/23 Zechariah Bradley Curriculum Advisory TeacherMedia Planner 03/23/24 documented as of this encounter
--- OUTSIDE RECORDS SUMMARY | 2024-12-29 17:49 | XMS_ITS | Encounter Summary ---
Author Organization [employer] Address [address] [facility] 7t [place] [address] Care Team Providers Care Boat And Plant Utility Supervisor Name Role Phone Diamond Blake MD Primary Care Pro vider Reason for Visit * Reason Comments Med Refill Encounter Details Date Type Department Care Team (Late st Contact Info) Description 10/24/2024 Refill [facility] MEDICINE [address] [place] [address] Diamond Blake MD 230 [place] [address] Social History Tobacco Use Types Packs/Day Years [...] is your housing situation today? I have rcohelle vidales 08/04/[address] you [...] Description 01/24/2025 9:15 AM EDT Office Visit [facility] MEDICINE [address] [place] [address] Wanda Hough CNM [address] [place] [address] documented as of this encounter Visit Diagnoses Not on filedocumented in this encounter Additional Health Concerns Assessment Noted Time PHQ-9 Depression Total Score: 14 024 9:42 AM EDT documented as of this encounter Care Teams Boat And Plant Utility Supervisor Relationship Specialty Start Date End Date Diamond Blake MD 230 [place] [address] PCP - General Internal Medicine 06/30/23 Zechariah Bradley Special Order JewelerSpring Fitter 03/23/24 documented as of this encounter
--- OUTSIDE RECORDS SUMMARY | 2024-12-29 17:49 | XMS_ITS | Encounter Summary ---
Author Organization [employer] Address 75 [facility] 7t [place] [address] Care Team Providers Care Waste Water Treatment Plant Operator Name Role Phone Diamond Blake MD Primary Care Pro vider Reason for Visit * Reason Comments Med Refill Encounter Details Date Type Department Care Team (Late st Contact Info) Description 01/29/2024 Refill [facility] [address] [place] [address] Diamond Blake MD 230 [place] [address] Social History Tobacco Use Types Packs/Day Years [...] [facility] [address] [place] [phone] Wanda Hough CNM [address] [place] [address] documented as of this encounter Visit Diagnoses Not on filedocumented in this encounter Additional Health Concerns Assessment Noted Time PHQ-9 Depression Total Score: 12 023 11:15 AM EST documented as of this encounter Care Teams Waste Water Treatment Plant Operator Relationship Specialty Start Date End Date Diamond Blake MD [address] [place] [phone] PCP - General Internal Medicine 06/30/23 Zechariah Bradley Ribbon TierFirer Diesel Locomotive 03/23/24 documented as of this encounter
--- OUTSIDE RECORDS SUMMARY | 2024-12-29 17:49 | XMS_ITS | Encounter Summary ---
Author Organization [employer] Address 75 [facility] 7t [place] [address] Care Team Providers Care Chair Car Attendant Name Role Phone Diamond Blake MD Primary Care Pro vider Reason for Visit * Reason Comments Med Refill Encounter Details Date Type Department Care Team ([facility] st Contact Info) Description 10/25/2024 Refill [facility] [address] [place] [address] Diamond Blake MD 230 [place] [address] Hypertension, unspecified type Social History Tobacco Use [...] EDT Office Visit [facility] [address] [place] [phone] Wanda Hough CNM [address] [place] [address] documented as of this encounter Visit Diagnoses Diagnosis Hypertension, unspecified type documented in this encounter Additional Health Concerns Assessment Noted Time PHQ-9 Depression Total Score: 14 024 9:42 AM EDT documented as of this encounter Care Teams Chair Car Attendant Relationship Specialty Start Date End Date Diamond Blake MD [address] [place] [address] PCP - General Internal Medicine 06/30/23 Zechariah Bradley Mixed Crop And Livestock FarmerGeneral Counselor 03/23/24 documented as of this encounter
--- OUTSIDE RECORDS SUMMARY | 2024-12-29 17:49 | XMS_ITS | Encounter Summary ---
Author Organization [email or web address] Address 75 [facility] 7t [place] [address] Care Team Providers Care Tie Worker Name Role Phone Diamond Blake MD Primary Care Pro vider Reason for Visit * Reason Comments Med Refill Encounter Details Date Type Department Care Team ([facility] st Contact Info) Description 12/21/2024 Refill [facility] [address] [place] [address] Diamond Blake MD [address] [place] [address] Hypothyroidism, unspecified type Social History Tobacco Use [...] 9:15 AM EDT Office Visit [facility] [address] [place] [phone] Wanda Hough CNM 230 [place] [address] documented as of this encounter Visit Diagnoses Diagnosis Hypothyroidism, unspecified type documented in this encounter Additional Health Concerns Assessment Noted Time PHQ-9 Depression Total Score: 14 024 9:42 AM EDT documented as of this encounter Care Teams Tie Worker Relationship Specialty Start Date End Date Diamond Blake MD [address] [place] [address] PCP - General Internal Medicine 06/30/23 Zechariah Bradley Technical AgronomistWaiter/Waitress Dining Car 03/23/24 documented as of this encounter
--- OUTSIDE RECORDS SUMMARY | 2024-12-29 17:49 | XMS_ITS | Clinical Summary ---
Author Organization [employer] Address 75 [facility] 7t [place] [address] Care Team Providers Care Tube Fitter Name Role Phone Diamond Blake MD Primary [...] her new apartment. We had the [facility] department come up and talk with her. They recommended a referral to care management. Referral placed. PHQ: 0 STI: reports no partner at this time. Pap: Last memory was in [place], approximately 5 years ago. Substance use: Denies [...] shortly cant remember date. Eye exam: Sees [facility] eye care. Dental home: Had [facility] dental appointment that she missed. She is [...] LDL-C. Eb LOPEZ et al. [place]. 2013;310(19): 6409-3328 (http://[employer]Twistle/faq/BTZ097) Chol/HDLC Ratio <5.0 (calc) 4.1 3.8 4.0 [...] see if there was an error. The laboratory scientist was able to find the lab orders. [...] DEPARTMENT Provider, Generic External Data 12/28/2024 Refill [facility] [address] [place] [address] Diamond Blake MD 12/21/2024 Refill [facility] [address] [place] [address] Diamond Blkae MD Hypothyroidism, unspecified type 12/20/2024 Refill [facility] [address] [place] [address] Diamond Blake MD Hyperlipidemia, unspecified hyperlipidemia type 12/01/2024 Travel 11/30/2024 Refill [facility] [address] [place] [address] Diamond Blake MD 11/02/2024 Telephone [facility] MEDICINE [address] [place] [phone] Diamond Blake MD Care Coordination (ICP care plan) 11/02/2024 Patient Outreach [facility]INE [address] [place] [address] Diamond Blake MD 10/29/2024 Refill [facility] [address] [place] [phone] Diamond Blake MD Venous stasis dermatitis of both lower extremities 10/25/2024 Refill [facility]INE [address] [place] [address] Sultana Parra, GABBY Hypertension, unspecified type 10/25/2024 Refill [facility] [address] [place] [address] Diamond Blake MD Hypertension, unspecified type 10/24/2024 Refill [facility] MEDICINE [address] [place] [address] Diamond Blake MD 10/21/2024 Refill [facility]INE [address] [place] [address] Diamond Blake MD 10/17/2024 10:30 AM EST Clinical Support [facility] DIABETES/NUTRITION [address] [place] [address] Hypertension, essential (Primary Dx); Obesity due to excess calories, unspecified obesity severity 10/17/2024 Travel 10/10/2024 Refill [facility]INE 230 [place] [address] Zaida Christy MD from Last 3 Months [...] Description 01/24/2025 9:15 AM EDT Office Visit [facility]INE [address] [place] [address] Alyce Gallo, CNM [address] [place] [address] Health Maintenance Due Date Last Done Comments [...] Stimulating Hormone 1.20 0.32 - 4.0 uIU/mL [facility] Comment:TSH 3rd Generation ( [facility]) 12/29/2024 2:18 PM EDT 12/29/2024 2:18 PM EDT us Generic External Data Provider LAB BLOOD ORDERAB LES Final Result Performing Organization Address City/[facility]/ZIP Co de Phone Number [facility] [address] [place] [phone] * T4, Free (12/29/2024 2:18 PM EDT) Free T4 (Free Thyroxine) 1.31 0.71 - 1.85 ng/dL [facility] 12/29/2024 2:18 PM EDT 12/29/2024 2:18 PM EDT us Generic External Data Provider LAB BLOOD ORDERAB LES Final Result Performing Organization Address [facility] Co de Phone Number [facility] [address] [place] [phone] * Hemoglobin A1c (09/05/2024 8:25 AM EST) Hemoglobin A1c 5.7 <6.0 % [facility] Comment:Hemoglobin A1C Refer ence Range Adults: 4.8 - 6.0 % Non diabetic: < 6.0 % Goal: < 7.0 %Additional Action Suggested: > 8.0 %Note: Hemoglobin A1c results are invalid for patients with abnormal amounts of HbF. Blood transfusions may impact the HbA1c concentration in the patient sample. Estimated Average Glucose 117 mg/dL [facility] Comment:eAG = Estimated ave rage glucose which is %A1C expressed asaverage glucose, using the formula of the W7L-PwtevjbGbooysu Glucose study (ADAG), Diabetes Care, Vol.31,#8,2007 Blood Venous blood specimen / Unknown 09/05/2024 8:25 AM EST 09/05/2024 11:36 AM EST us Diamond Barry MD LAB BLOOD ORDERAB LES Final Result [facility] [address] [place] [phone] * Lipid Panel, Standard (09/05/2024 8:25 AM EST) Triglycerides 134 <150 mg/dL [facility] Comment:Desirable Triglyceri de: less than 150 mg/dLBorderline High Triglyceride 150-199 mg/dLHigh Triglyceride: 200-499 mg/dLVery High Triglyceride: greater than or equal to 5OO mg/dL Cholesterol 152 <200 mg/dL [facility] Comment:Desirable Cholestero l: less than 200 mg/dLBorderline High Cholesterol: 200-239 mg/dLHigh Cholesterol: greater than 239 mg/dL LDL Cholesterol Calculated 70 <100 mg/dL [facility] Comment:Desirable LDL: less than 100 mg/dLNear Optimal/Above Optimal LDL: 110- 129 mg/dLBorderline High LDL: 130-159 mg/dLHigh LDL: 160-189 mg/dLVery High LDL: greater than or equal to 190 mg/dL HDL Cholesterol 56 >40 mg/dL [facility] Comment:Desirable HDL: great er than 40 mg/dL Note: This HDL assay may give artificially low results in patients with liver disease. Blood Venous blood specimen / Unknown 09/05/2024 8:25 AM EST 09/05/2024 11:36 AM EST Diamond Barry MD LAB BLOOD ORDERAB LES Final Result Performing Organization Address City/[facility]/ZIP Co de Phone Number [facility] [address] [place] [phone] * HPV mRNA E6/E7 w/Reflex to HPV Genotypes 16, 18/45 (01/28/2024 11:09 AM EDT) HPV nRNA E6/E7 Not Detected Not Detected [facility] Comment:Methodology: Transcr iption-Mediated AmplificationThis assay detects E6/E7 viral messenger RNA (mRNA) from 14high-risk HPV types (16,18,31,33,35,39,45,51,52,56,58,59,66,68).Cervical sources are required for HPV testing.If a vaginal source from a patient who has had atotal hysterectomy with removal of cervix wassubmitted, please contact the testing laboratoryfor alternative testing options.For additional information, please refer tohttp://education.Kidamom/faq/CST514p0(This link if provided for information/educational purposes only.)THIS TEST WAS PERFORMED AT:[employer] [place] [phone] CHANG MD HPV mRNA E6/E7 TNP [facility] HPV 16 RNA [facility] HPV 18/45 RNA [facility] 01/28/2024 11:0 9 AM EDT 02/02/2024 12:00 PM EDT us Alyce Gallo CNM LAB CYTOLOGY ORDERABLES F inal Result Performing Organization Address City/[facility]/ZIP Co de Phone Number [facility] [address] [place] [phone] * Pap Smear (01/28/2024 11:09 AM EDT) Swab Cervix uteri structure / Unknown 01/28/2024 11:09 AM EDT 02/02/2024 12:00 PM EDT Narrative [facility] - 02/17/2024 6:59 AM EDT ----- ------- Name: Diamond Grider ? Age/Sex: 63/F ? : 1960 Unit#: [id number] ?? Attend Dr: ALYCE GALLO Bela ?Re01/28/24 ?Status: DEP REF ? [facility] ? Disch: ? ----- ------- SPEC : [id number] ? RECD: 02/02/24-1200 ? STATUS: ??SOUT ? REQ NUM: [id number] ? SELENE: 01/28/24-1109 ? SUBM DR: ALYCE [...] 66, 68) ?? HPV testing performed by [facility], [place], [place]. ??See reference laboratory ?? portion of the EMR for entire report. ?Clinical Information LMP: Postmenopausal Previous PAP test: Unknown date/findings ? Material Received ?? ThinPrep-Vaginal/Cervical ----- ------- Signed (signature on file) RIANNA Han (ASCP) 02/17/24 0659 ? ----- ------- ? END OF REPORT ? us Alyce Gallo CNM LAB CYTOLOGY ORDERABLES F inal Result [facility] [address] [place] [phone] [phone] * BI Mammogram Screening Tomosynthesis Bilateral (01/05/2024 10:40 AM EDT) Anatomical Region Laterality Modality Breast Bilateral Mammography 01/05/2024 10:4 0 AM EDT Narrative 01/27/2024 12:19 AM EDT ? [facility] ? [address] ?[place] [phone] ? Mammography Report ? Signed ? Patient: Diamond Grider ?MR#: ?? [id number] ? : 1960 ?Acct:[id number] ? Age/Sex: 63 / F ?ADM Date: 03/19/24 ? Loc: HO.MAMMO ? Attending Dr: Fay Weinstein MD ? Ordering Physician: FAY WEINSTEIN MD ?Results: 1Neg ?? ative ? Date of Service: 01/05/24 ?Follow Up: 1 Year From Orig ?? inal Mammogram ? Procedure(s): MM tomosynthesis screening BI ?? Accession Number(s): [id number] ? cc: FAY WEINSTEIN MD; Diamond Blake [...] ? 01/27/2414 ? DD/ ? TD/TT: ? Rim Fire Priming Operator: ? Procedure Note Torey, Image - 01/27/[address] [facility] [place] [address] Mammography Report Signed Patient: Diamond Grider EMR#: [id number] : 1960Acct:[id number] Age/Sex: 63 / FADM Date: 01/05/24 Loc: HO.MAMMO Attending Dr: Fay Weinstein MD Ordering Physician: FAY WEINSTEIN MDResults: 1Neg ative Date of Service: 01/05/24Follow Up: 1 Year From Orig inal Mammogram Procedure(s): MM tomosynthesis screening BI Accession Number(s): [id number] cc: FAY WEINSTEIN MD; Diamond Blake MD [...] in OV> 01/27/24 0015 DD/ 1040 TD/TT: Rim Fire Priming Operator: [facility] External Provider IMG BI PROCEDURES Final Result * Hepatitis C Antibody with Reflex to HCV, RNA, Quantitative, Real-Time PCR (08/28/2023 9:03 AM EST) Hepatitis C Antibody Nonreactive Nonreactive [facility] Comment:Antibodies to HCV no t detected; does not exclude early acuteHCV infection. Blood Venous blood specimen / Unknown 08/28/2023 9:03 AM EST 08/28/2023 11:14 AM EST Diamond Barry MD LAB BLOOD ORDERAB LES Final Result [facility] [address] [place] [phone] * (ABNORMAL) Colonoscopy (07/21/2023) Colonoscopy Abnormal( [...] Most Recently Relevant to Health Maintenance Insurance [facility] [address] [address] [facility] ST[facility] ADULT Care Teams Tube Fitter Relationship Specialty Start Date End Date Diamond Blake MD [address] [place] [address] PCP - General Internal Medicine 06/30/23 Zechariah Bradley General OphthalmologistBand Instrument Maker 03/23/24
--- OUTSIDE RECORDS SUMMARY | 2024-12-29 17:49 | XMS_ITS | Encounter Summary ---
Author Organization [employer] Address [address] [place] [address] 7t [place] [address] Care Team Providers Care Paint Formulator Name Role Phone Diamond Blake MD Primary Care Pro vider Reason for Visit * Reason Onset Date Comments Med Refill 07/07/2023 Encounter Details Date Type Department Care Team (Late st Contact Info) Description 07/07/2023 Refill [facility] [address] [place] [address] Lay Avila MD [address] [place] [address] Social History Tobacco Use Types Packs/Day Years [...] AM EDT Office Visit [facility] [address] [place] [address] Wanda Hough CNM [address] [place] [address] documented as of this encounter Visit Diagnoses Not on filedocumented in this encounter Additional Health Concerns Assessment Noted Time PHQ-9 Depression Total Score: 15 12/12/ 023 2:22 PM EST documented as of this encounter Care Teams Paint Formulator Relationship Specialty Start Date End Date Diamond Blake MD [address] [place] [address] PCP - General Internal Medicine 06/30/23 Zechariah Bradley Retail LeaderBroth Mixer 03/23/24 documented as of this encounter
--- OUTSIDE RECORDS SUMMARY | 2024-12-29 17:49 | XMS_ITS | Encounter Summary ---
Author Organization [facility] Address 75 [facility] 7t [place] [address] Care Team Providers Care Corporate Traffic Manager Name Role Phone Kailash Trevizo Primary Care Provider Unavail able Diamond Blake MD Primary Care Pro vider Encounter Details Date Type Department Care Team (Late st Contact Info) Description 06/02/2023 Abstract [facility] [address] [place] [address] Mervin Davisaris [address] [place] [address] Social History Tobacco Use Types Packs/Day Years [...] Description 01/24/2025 9:15 AM EDT Office Visit [facility] [address] [place] [address] Wanda Hough CNM [address] [place] [address] documented as of this encounter Visit Diagnoses Not on filedocumented in this encounter Additional Health Concerns Assessment Noted Time PHQ-9 Depression Total Score: 15 12/12/ 023 2:22 PM EST documented as of this encounter Care Teams Corporate Traffic Manager Relationship Specialty Start Date End Date Kailash Trevizo AGNP PCP - General Family Medicine 11/13/22 06/29/23 Diamond Blake MD [address] [place] [phone] PCP - General Internal Medicine 06/30/23 Zechariah Bradley Curriculum And Instruction DirectorMachinist Apprentice 03/23/24 documented as of this encounter
--- OUTSIDE RECORDS SUMMARY | 2024-12-29 17:49 | XMS_ITS | Encounter Summary ---
Author Organization [employer] [facility] Address [address] [place] [address] 7 [place] [address] Care Team Providers Care Log Yard Manager Name Role Phone Diamond Blake MD Primary Care Pro vider Reason for Visit * Reason Comments Med Refill Encounter Details Date Type Department Care Team (Late st Contact Info) Description 07/06/2023 Refill [facility] [address] [place] [address] Kailash Trevizo AGNP Hypertension, unspecified type Social [...] Description 01/24/2025 9:15 AM EDT Office Visit [facility] [address] [place] [address] Wanda Hough CNM [address] [place] [address] documented as of this encounter Visit Diagnoses Diagnosis Hypertension, unspecified type documented in this encounter Additional Health Concerns Assessment Noted Time PHQ-9 Depression Total Score: 15 12/12/ 023 2:22 PM EST documented as of this encounter Care Teams Log Yard Manager Relationship Specialty Start Date End Date Diamond Blake MD [address] [place] [phone] PCP - General Internal Medicine 06/30/23 Zechariah Bradley Chief Juvenile Probation OfficerTrouble Locator Test Desk 03/23/24 documented as of this encounter
--- OUTSIDE RECORDS SUMMARY | 2024-12-29 17:49 | XMS_ITS | Encounter Summary ---
Author Organization [employer] Address [address] [facility] [address] 7t [place] [address] Care Team Providers Care Drum Stenciler Name Role Phone Kailash Trevizo Primary Care Provider Unavail able Diamond Blake MD Primary Care Pro vider Reason for Visit * Reason Comments Med Refill Encounter Details Date Type Department Care Team (Late st Contact Info) Description 02/11/2023 Refill [facility] [address] [place] [address] Otoniel Bella MD [address] [place] [address] Chronic pain of both knees; Acute pain [...] Description 01/24/2025 9:15 AM EDT Office Visit [facility] [address] [place] [address] Wanda Hough CNM [address] [place] [address] documented as of this encounter Visit Diagnoses Diagnosis Chronic pain of both knees Acute pain of left shoulder documented in this encounter Additional Health Concerns Assessment Noted Time PHQ-9 Depression Total Score: 15 12/12/ 023 2:22 PM EST documented as of this encounter Care Teams Drum Stenciler Relationship Specialty Start Date End Date Kailash Trevizo AGNP PCP - General Family Medicine 11/13/22 06/29/23 Diamond Blake MD [address] [place] [address] PCP - General Internal Medicine 06/30/23 Zechariah Bradley WebmasterData Miner 03/23/24 documented as of this encounter
== END 2024-12-29 12:47 | disposition home or self-care (01) ==
LOC: HO.LAB 12:46
PROVIDERS: PCP Internal Medicine; Visit Provider Student in an Organized Health Care Education/Training Program
DX: E06.3 Autoimmune thyroiditis (principal); E89.0 Postprocedural hypothyroidism; Z79.890 Hormone replacement therapy
CPT/HCPCS: 36415; 84439; 84443; 99212

== ENCOUNTER 2025-01-04 10:13 | Outpatient (AMB) | payer MEDICAID, SELFPAY ==
--- NOTE | 2025-01-04 10:33 | A.OFFVIS_ITS ---
Vital Signs 01/04/25 10:34 Height 5 ft 2 in Weight 198 lb 6.656 oz BMI 36.3 BP 108/62 Blood Pressure Location Lt brachial Position Sitting Pulse 68 Pulse Source Pulse Oximeter Pulse Oximetry (%) 97 Oxygen Delivery Method Room Air Intake Visit Reasons: Asthma Allergies animal dander Allergy (Verified 12/29/24 12:55) Rash tree and shrub pollen Allergy (Verified 12/29/24 12:55) Rash HPI Comments Details: The patient is a 64-year-old woman with a known history of asthma since she was a teenager. She states she has been on multiple respiratory medications. Ross few months she has been more short of breath. She has a hard time going up a flight of stairs. She is also having issues because [place] smoking her apartment complex. Also her daughter smoking. All the fumes and irritants are bothering her asthma. She is having more frequent exacerbations which she needs to use her nebulizer. She has been using her rescue inhaler at least on a daily basis. She continues with Spiriva and Advair. She has also been on singular. She states that she has never had allergy testing. On further questioning she does have daytime drowsiness. Her Seney score is elevated 10/11. She did have a sleep study in the past demonstrated she has sleep apnea. She did try the CPAP but she could not tolerated. Explained to her the importance of using CPAP if she has underlying sleep apnea. At this point will focus on improving her respiratory status then we have to revisit the whole sleep apnea issue. She also had a CT scan of the chest that we personally reviewed back in 2018. She did have evidence of granulomas. This is likely from a previous infection. 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 09/26/2022 the patient is here for pulmonary follow-up visit. She is complaining of multiple constitutional complaints. She is having some headaches and some chest tightness. She feels her asthma is active. Having significant wheezing. Moderate severity. She is using rescue inhaler with partial resolution of the symptoms. She still has the issue with the cockroaches in her house. She does have significant chest tightness when she is seen the past. The patient did have allergy testing done demonstrating positive allergies to her throat just on the high concentration. The patient also has significant allergies to dust mites and also environmental allergens. The patient is already maxed out on respiratory therapy with Trelegy. She does have wheezing on examination. Based on her elevated IgE and allergy testing the patient does have allergic asthma. Will go ahead and start the process to start her on Xolair monoclonal antibody for IgE. This will help her symptoms and hopefully decrease her exacerbations. In the meantime for wheezing I will give a prescription for prednisone that she will take if her symptoms get worse. The patient also complains of headaches and chills. She also has a slight sore throat. Denies any exposure to anybody with COVID-19 or flu. Although she is not sure. Will go ahead and swab her today for the virus syndromes and will let her know the results. The patient will follow-up in 3-4 months 01/23/2023 the patient is here for a pulmonary follow-up visit. She is feeling better. Still having some sinus pressure. The patient has been using the Trelegy inhaler. In addition to this the patient did start the these are injections with good effect. She had 1 bout of lower extremity edema with an allergic reaction. Although that settled. I do not believe that was from the Xolair. The patient does have significant allergies in the Xolair should help but does allergy reactions. In the meantime the patient does not have an EpiPen. We did instruct her how to use 1 effectively and did provide her an EpiPen for her to use in case of any emergencies. The patient will follow-up in 6 months or sooner if she develops any other issues. 09/04/2023 the patient is here for pulmonary follow-up visit. She has been complaining of worsening respiratory symptoms. She has been sick now for about 3 days. She went to Urgent Care yesterday. Denies any fevers. She has had some chills and she has had worsening congested cough. She went to the urgent care and she was given prednisone. The patient is not feeling any better. We did another swab today with flu RSV and COVID. The patient also will start azithromycin. Her exam is symmetrical so therefore will hold off on any imaging studies. If the patient is no better by next week she can always come in for chest x-ray. In the meantime she will continue with all her respiratory therapy in Xolair that has been affecting beneficial. If her swab is positive for either RSV COVID or the flow I will call her to let you know and treat her appropriately. 01/04/2025 the patient is here for pulmonary follow-up visit. Overall she is doing okay. Although she has not been able to get a maintenance inhaler and she is having some increased chest tightness and wheezing. She does have a rescue inhaler she uses it a few times a day. She also continues on the Xolair. The family was wondering why she was on Xolair we did review her allergies. She has significant allergies to multiple trees and grasses and dust mites and also cockroaches. She does state that her current apartment in [facility] has cockroaches in that is been an issue. She would like a letter to state that she has significant allergies to the past and she needs to be relocated. Will provide a letter once available. In the meantime the patient needs to start maintenance inhaler. Will start her on Breo that she can use once a day make sure she rinses well and gargles afterwards. She also has been on Singulair and antihistamine therapy that she should also continue. The patient will also continue the Xolair. Will have her get blood work to assess her IgE levels in addition to eosinophil levels and see if we have to make any changes on her Xolair. But for now specially transitioning to the spring she should continue the Xolair. Will plan to follow-up in 4-6 months. If she has any difficulties prior to that she will call for an earlier assessment. [facility] Medical History (Updated 01/04/25 @ 21:49 by Keith Mclean MD) Snoring Renal calculi Limb swelling Sleep apnea Hx of renal calculi Pulmonary nodules Chronic allergic rhinitis Asthma Hypertension Non-toxic multinodular goiter Osteopenia Fernando's disease Hypothyroidism History of primary hyperparathyroidism Surgical History (Updated 12/29/24 @ 12:57 by JEAN CARLOS Early) Hx of hand surgery Status post fine needle aspiration Hx of cystoscopy Hx of lithotripsy History of surgery on arm Hx of parathyroidectomy H/O partial thyroidectomy Hx of tubal ligation Family History Maternal Grandmother Diabetes Father No problems noted. Mother Hypertension Asthma Social History Are you a primary healthcare economics consultant to a significant other at home: No Do you presently have visiting nurse or other home services: No Alcohol intake: never Patient Tobacco Use Status: Never used Tobacco Current occupational status: disabled Current occupation: right hand dominant Review of Systems Const Denies night sweats, Reports snoring and Reports weight gain ENT Denies change in voice, Denies lip swelling, Denies mouth pain, Reports nasal congestion, Reports nasal discharge, Reports sore throat and Denies tongue swelling Card Denies chest pain, Reports leg edema and Reports dyspnea on exertion Resp Denies chest congestion, Reports cough, Denies hemoptysis, Reports dyspnea on exertion, Reports snoring and Reports wheezing GI Denies abdominal pain Musc Denies no additional complaints Neuro Denies Neuro-related abnormal movements Psych Denies no additional complaints Cheko/Lymph Denies easy bleeding and Denies lymphadenopathy Aller/Immun Denies lip swelling, Denies tongue swelling and Reports wheezing Physical Exam Vital Signs: Last Vital Signs Pulse 68 01/04/25 10:34 BP 108/62 01/04/25 10:34 Pulse Ox 97 01/04/25 10:34 Oxygen Delivery Method Room Air 01/04/25 10:34 BMI result Body Mass Index 36.3 Const General: cooperative, comfortable and no acute distress Orientation/consciousness: patient oriented x3 HEENT Head: Yes normal to inspection Neck Neck: Yes normal visual inspection and Yes no JVD Carotids: normal carotid upstroke Chest Chest palpation & inspection: normal inspection of the chest Resp Effort & Inspection: able to speak in complete sentences Auscultation: no crackles, no rales, no rhonchi, no wheezes and diminished lung sounds Cardio Rate: regular rate Rhythm: regular rhythm Heart sounds: S1 normal heart sound present, S2 normal heart sound present, no gallops, no murmurs and no rubs GI Inspection: Yes normal to inspection Skin General skin exam: no rashes or lesions noted Neuro General: patient oriented x3 Extrem General: Yes normal to inspection, No no pedal edema, No calf tenderness, No clubbing, No cyanosis and Yes edema Assessment & Plan Assessment & Plan (1) Asthma: Code(s): J45.909 - Unspecified asthma, uncomplicated Category: Medical Qualifiers: Asthma complication type: uncomplicated Asthma persistence: persistent Asthma severity: moderate Qualified Code(s): J45.40 - Moderate persistent asthma, uncomplicated (2) Pulmonary nodules: Comment: calcified consistent with granulommas Code(s): R91.8 - Other nonspecific abnormal finding of lung field Category: Medical (3) PAOLA (obstructive sleep apnea): Comment: Not using CPAP Code(s): G47.33 - Obstructive sleep apnea (adult) (pediatric) Category: Medical (4) Chronic allergic rhinitis: Code(s): J30.9 - Allergic rhinitis, unspecified Category: Medical Plan continue Trelegy 200 Continue allergy medicine: singulair and Claritin continue Xolair EPIPEN positional therapy for PAOLA, if no better consider APAP Bloodwork F/U 4-6 months Orders: Orders Complete Blood Count Auto Diff Today J45.909 - Unspecified asthma, uncomplicated Basic Metabolic Panel Today J45.909 - Unspecified asthma, uncomplicated Immunoglobulin E Today J45.909 - Unspecified asthma, uncomplicated Erythrocyte Sedimentation Rate Today J45.909 - Unspecified asthma, uncomplicated Medications: Changed From loratadine 10 mg PO QAM 90 tabs 0RF J30.9 - Allergic rhinitis, unspecified, J45.909 - Unspecified asthma, uncomplicated To loratadine 10 mg PO QAM 30 tabs 3RF 30 days J30.9 - Allergic rhinitis, unspecified, J45.909 - Unspecified asthma, uncomplicated Refilled montelukast 10 mg PO QPM 30 tabs 11RF 30 days Coding Level of Care Code Est Pt Level 4 (48231) Diagnoses Moderate persistent asthma without complication J45.40 Asthma complication type: uncomplicated Asthma persistence: persistent Asthma severity: moderate Pulmonary nodules R91.8 PAOLA (obstructive sleep apnea) G47.33 Chronic allergic rhinitis J30.9 Time Spent (min) 17
[2025-01-04 10:34] VITALS: BP 108/62; PULSE 68; O2SAT 97; BMI 36.3
--- OUTSIDE RECORDS SUMMARY | 2025-01-04 11:54 | XMS_ITS | Encounter Summary ---
Author Organization [employer] [facility] Address [address] [place] [address] 7 [place] [address] Care Team Providers Care Vascular Tech Name Role Phone Diamond Blake MD Primary Care Pro vider Reason for Visit * Reason Onset Date Comments Med Refill 07/08/2023 Encounter Details Date Type Department Care Team (Late st Contact Info) Description 07/08/2023 Refill [facility] [address] [place] [address] Diamond Blake MD [address] [place] [address] Severe chronic obstructive pulmonary disease (CMS/HCC); Hypertension, [...] Description 01/24/2025 9:15 AM EDT Office Visit [facility] [address] [place] [address] Wanda Hough, TRUDY [address] [place], [place] [phone] 03/02/2025 10:30 AM EDT Office Visit [facility] [address] [place], [place] [phone] Diamond Blake MD [address] [place], [place] [phone] documented as of this encounter Visit Diagnoses [...] documented as of this encounter Care Teams Vascular Tech Relationship Specialty Start Date End Date Diamond Blake MD [address] [place] [phone] PCP - General Internal Medicine 06/30/23 Zechariah Braldey Pad CutterGas Specialist 03/23/24 documented as of this encounter
--- OUTSIDE RECORDS SUMMARY | 2025-01-04 11:54 | XMS_ITS | Encounter Summary ---
Author Organization [employer] Address [address] [facility] [address] 7[address] [place] [address] Care Team Providers Care Project Drilling Engineer Name Role Phone Diamond Blake MD Primary [...] 01/24/2025 9:15 AM EDT Office Visit [facility] MEDICINE [address] [place] [address] [phone] Wanda Hough CNM [address] [place] [address] [phone] 03/02/2025 10:30 AM EDT Office Visit [facility] MEDICINE [address] [place] [phone] Diamond Blake MD [address] [place] [address] [phone] documented as of this encounter Procedures Procedure Name Priority Date/Time Associated Diagnosis Comments TSH Routine 12/29/2024 2:18 PM EDT T4, FREE Routine 12/29/2024 2:18 PM EDT documented in this encounter Results * TSH (12/29/2024 2:18 PM EDT) Thyroid Stimulating Hormone 1.20 0.32 - 4.0 uIU/mL [facility] Comment:TSH 3rd Generation ( [facility]) 12/29/2024 2:18 PM EDT 12/29/2024 2:18 PM EDT us Generic External Data Provider LAB BLOOD ORDERAB LES Final Result Performing Organization Address [facility] Co de Phone Number [facility] [address] [place] [address] [phone] * T4, Free (12/29/2024 2:18 PM EDT) Free T4 (Free Thyroxine) 1.31 0.71 - 1.85 ng/dL [facility] 12/29/2024 2:18 PM EDT 12/29/2024 2:18 PM EDT Generic External Data Provider LAB BLOOD ORDERAB LES Final Result Performing Organization Address [facility] Co de Phone Number [facility] [address] [place] [phone] documented in this encounter Visit Diagnoses Not on filedocumented in this encounter Additional Health Concerns Assessment Noted Time PHQ-9 Depression Total Score: 14 024 9:42 AM EDT documented as of this encounter Care Teams Project Drilling Engineer Relationship Specialty Start Date End Date Diamond Blake MD [address] [place] [phone] PCP - General Internal Medicine 06/30/23 Zechariah Bradley Concrete Fence BuilderMachine Puller Over 03/23/24 documented as of this encounter
--- OUTSIDE RECORDS SUMMARY | 2025-01-04 11:55 | XMS_ITS | Encounter Summary ---
Author Organization [employer] Address [address] [facility] [address] 7[address] [place] [address] Care Team Providers Care Chiropractor Sole Practitioner Name Role Phone Diamond Blake MD Primary Care Pro vider Reason for Visit * Reason Onset Date Comments Med Refill 09/28/2023 Encounter Details Date Type Department Care Team (Late st Contact Info) Description 09/28/2023 Refill [facility] MED & PEDS [address] [place] [address] Zaida Christy MD [address] [place] [address] Hypertension, unspecified type Social History Tobacco Use [...] [facility] [address] [place] [phone] Wanda Hough CNM [address] [place] [phone] 03/02/2025 10:30 AM EDT Office Visit [facility] MEDICINE [address] [place] [phone] Diamond Blake MD [address] [place] [address] [phone] documented as of this encounter Visit Diagnoses Diagnosis Hypertension, unspecified type documented in this encounter Additional Health Concerns Assessment Noted Time PHQ-9 Depression Total Score: 15 023 2:22 PM EST documented as of this encounter Care Teams Chiropractor Sole Practitioner Relationship Specialty Start Date End Date Diamond Blake MD [address] [place] [phone] PCP - General Internal Medicine 06/30/23 Zechariah Bradley ValverChopper Feeder 03/23/24 documented as of this encounter
--- OUTSIDE RECORDS SUMMARY | 2025-01-04 11:55 | XMS_ITS | Encounter Summary ---
Author Organization [employer] Address [address] [facility] [address] 7[address] [place] [address] Care Team Providers Care Apartment Community Manager Name Role Phone Diamond Blake MD Primary Care Pro vider Reason for Visit * Reason Onset Date Comments Med Refill 07/07/2023 Encounter Details Date Type Department Care Team (Late st Contact Info) Description 07/07/2023 Refill [facility] [address] [place] [address] Otoniel Bella MD 230 [place] [address] Chronic pain of both knees; Acute pain [...] EDT Office Visit [facility] [address] [place] [address] Wanda Hough CNM [address] [place], [place] [phone] 03/02/2025 10:30 AM EDT Office Visit [facility] MED[facility] [address] [place] [address] [phone] Diamond Blake MD [address] [place] [address] documented as of this encounter Visit Diagnoses Diagnosis Chronic pain of both knees Acute pain of left shoulder documented in this encounter Additional Health Concerns Assessment Noted Time PHQ-9 Depression Total Score: 15 12/12/ 023 2:22 PM EST documented as of this encounter Care Teams Apartment Community Manager Relationship Specialty Start Date End Date Diamond Blake MD [address] [place] [address] [phone] PCP - General Internal Medicine 06/30/23 Zechariah Bradley Feller Machine OperatorWarehousing Technician 03/23/24 documented as of this encounter
--- OUTSIDE RECORDS SUMMARY | 2025-01-04 11:55 | XMS_ITS | Encounter Summary ---
Author Organization [employer] Address [address] [facility] 7t [place] [address] Care Team Providers Care Bank Courier Name Role Phone Diamond Blake MD Primary Care Pro vider Reason for Visit * Reason Onset Date Comments Med Refill 12/20/2024 Encounter Details Date Type Department Care Team (Late st Contact Info) Description 12/20/2024 Refill [facility] [address] [place] [address] Diamond Blake MD [address] [place] [address] Hyperlipidemia, unspecified hyperlipidemia type Social History Tobacco [...] the past 12 months, has t he [employer], gas, oil or water company threatened to [...] EDT Office Visit [facility] MEDICINE [address] [place] [phone] Wanda Hough CNM [address] [place] [phone] 03/02/2025 10:30 AM EDT Office Visit [facility] MEDICINE [address] [place] [phone] Diamond Blake MD [address] [place] [phone] documented as of this encounter Visit Diagnoses Diagnosis Hyperlipidemia, unspecified hyperlipidemia type documented in this encounter Additional Health Concerns Assessment Noted Time PHQ-9 Depression Total Score: 14 024 9:42 AM EDT documented as of this encounter Care Teams Bank Courier Relationship Specialty Start Date End Date Dimaond Blake MD [address] [place] [phone] PCP - General Internal Medicine 06/30/23 Zechariah Bradley Marketing Information AnalystChief Credit Officer 03/23/24 documented as of this encounter
--- OUTSIDE RECORDS SUMMARY | 2025-01-04 11:55 | XMS_ITS | Encounter Summary ---
Author Organization [email or web address] Address [address] [facility] 7 [place] [address] Care Team Providers Care Dermatological Surgeon Name Role Phone Diamond Blake MD Primary Care Pro vider Reason for Visit * Reason Onset Date Comments May recall 12/30/2024 Encounter Details Date Type Department Care Team ([facility] st Contact Info) Description 12/30/2024 Telephone [facility] MEDICINE [address] [place] [address] Diamond Blake MD [address] [place] [address] May recall Social History Tobacco Use Types Packs/Day Years [...] AM EDT documented as of this encounter Miscellaneous Notes * Telephone Encounter - Joyce uW [place] - 12/30/2024 10:22 AM EDT Telephone call to patient to schedule the following recall: Visit type: Office visit Appointment notes: HTN Patient agree to appointment on 03/02/25 at 10:30 AM with Jigar. Patient's daughter stated last Thursday12/27/24 Diamond had hand surgery. documented in this encounter Plan of Treatment Upcoming Encounters Date Type Department Care Team (Late st Contact Info) Description 01/24/2025 9:15 AM EDT Office Visit [facility] MEDICINE [address] [place] [phone] Wanda Hough CNM [address] [place] [phone] 03/02/2025 10:30 AM EDT Office Visit [facility] MED[facility] [address] [place] [phone] Diamond Blake MD [address] [place] [address] documented as of this encounter Visit Diagnoses Not on filedocumented in this encounter Additional Health Concerns Assessment Noted Time PHQ-9 Depression Total Score: 14 024 9:42 AM EDT documented as of this encounter Care Teams Dermatological Surgeon Relationship Specialty Start Date End Date Diamond Blake MD [address] [place] [phone] PCP - General Internal Medicine 06/30/23 Zechariah Bradley Shellfish ShuckerSill Worker 03/23/24 documented as of this encounter
--- OUTSIDE RECORDS SUMMARY | 2025-01-04 11:55 | XMS_ITS | Encounter Summary ---
Author Organization [employer] Address [address] [place] [address] 7t [place] [address] Care Team Providers Care Cement Despatch Operator Name Role Phone Diamond Blake MD Primary Care Pro vider Reason for Visit * Reason Onset Date Comments Med Refill 07/07/2023 Encounter Details Date Type Department Care Team (Late st Contact Info) Description 07/07/2023 Refill [facility] PEDS [address] [place] [address] Lay Avila MD [address] [place] [address] Social History Tobacco Use Types Packs/Day Years [...] Office Visit [facility] MEDICINE [address] [place] [address] Wanda Hough CNM [address] [place] [address] 03/02/2025 10:30 AM EDT Office Visit [facility] MEDICINE [address] [place], [place] [phone] Diamond Blake MD [address] [place], [place] [phone] documented as of this encounter Visit Diagnoses Not on filedocumented in this encounter Additional Health Concerns Assessment Noted Time PHQ-9 Depression Total Score: 15 023 2:22 PM EST documented as of this encounter Care Teams Cement Despatch Operator Relationship Specialty Start Date End Date Diamond Blake MD [address] [place], [place] [phone] PCP - General Internal Medicine 06/30/23 Zechariah Bradley Facilities Project ManagerProperty Management Accountant 03/23/24 documented as of this encounter
--- OUTSIDE RECORDS SUMMARY | 2025-01-04 11:55 | XMS_ITS | Encounter Summary ---
Author Organization [employer] Address [address] [facility] 7t [place] [address] Care Team Providers Care Starch And Prosize Mixer Name Role Phone Diamond Blake MD Primary Care Pro vider Reason for Visit * Reason Comments Med Refill Encounter Details Date Type Department Care Team ([facility] st Contact Info) Description 10/25/2024 Refill [facility] [address] [place] [address] Diamond Blake MD [address] [place] [address] Hypertension, unspecified type Social History Tobacco Use [...] Office Visit [facility] MEDICINE [address] [place] [phone] Wanda Hough CNM [address] [place] [phone] 03/02/2025 10:30 AM EDT Office Visit [address] [address] Diamond Blake MD [address] [place] [phone] documented as of this encounter Visit Diagnoses Diagnosis Hypertension, unspecified type documented in this encounter Additional Health Concerns Assessment Noted Time PHQ-9 Depression Total Score: 14 024 9:42 AM EDT documented as of this encounter Care Teams Starch And Prosize Mixer Relationship Specialty Start Date End Date Diamond Blake MD [address] [place] [phone] PCP - General Internal Medicine 06/30/23 Zechariah Bradley [employer] Agriculture TeacherIcing Maker 03/23/24 documented as of this encounter
--- OUTSIDE RECORDS SUMMARY | 2025-01-04 11:55 | XMS_ITS | Encounter Summary ---
Author Organization [employer] Address 75 [facility] 7t [place] [address] Care Team Providers Care Speech Language Pathologist Assistant Name Role Phone Diamond Blake MD Primary Care Pro vider Encounter Details Date Type Department Care Team ([facility] st Contact Info) Description 12/30/2024 Population Health Risk Score [facility] () Department 75 [facility] 7 [place] [phone] Provider, Population Health Generic Social History Tobacco Use Types Packs/Day Years [...] EDT Office Visit [facility] [address] [place] [address] Wanda Hough CNM [address] [place] [address] 03/02/2025 10:30 AM EDT Office Visit [facility] [address] [place] [address] Diamond Blake MD [address] [place] [address] documented as of this encounter Visit Diagnoses Not on filedocumented in this encounter Additional Health Concerns Assessment Noted Time PHQ-9 Depression Total Score: 14 024 9:42 AM EDT documented as of this encounter Care Teams Speech Language Pathologist Assistant Relationship Specialty Start Date End Date Diamond Blake MD [address] [place] [phone] PCP - General Internal Medicine 06/30/23 Zechariah Bradley Carburetor RepairerCase Mgr 03/23/24 documented as of this encounter
--- OUTSIDE RECORDS SUMMARY | 2025-01-04 11:55 | XMS_ITS | Encounter Summary ---
Author Organization [employer] [facility] Address 75 [facility] 7t [place] [address] Care Team Providers Care Barrel Filler Name Role Phone Kailash Trevizo Primary Care Provider Unavail able Diamond Blake MD Primary Care Pro vider Encounter Details Date Type Department Care Team (Late st Contact Info) Description 06/02/2023 Abstract [facility] [address] [place] [address] Mervin Davisaris [address] [place] [address] Social History Tobacco Use Types Packs/Day Years [...] Description 01/24/2025 9:15 AM EDT Office Visit [facility] [address] [place] [address] Wanda Hough CNM [address] [place] [address] 03/02/2025 10:30 AM EDT Office Visit [facility] [address] [place], [place] [phone] Diamond Blake MD 230 [place] [address] documented as of this encounter Visit Diagnoses Not on filedocumented in this encounter Additional Health Concerns Assessment Noted Time PHQ-9 Depression Total Score: 15 023 2:22 PM EST documented as of this encounter Care Teams Barrel Filler Relationship Specialty Start Date End Date Kailash Trevizo AGNP PCP - General Family Medicine 11/13/22 06/29/23 Diamond Blake MD [address] [place] [address] PCP - General Internal Medicine 06/30/23 Zechariah Bradley Careers CounsellorVending Supervisor 03/23/24 documented as of this encounter
--- OUTSIDE RECORDS SUMMARY | 2025-01-04 11:55 | XMS_ITS | Encounter Summary ---
Author Organization [employer] Address 75 [facility] 7t [place] [address] Care Team Providers Care Sdet Name Role Phone Diamond Blake MD Primary Care Pro vider Reason for Visit * Reason Comments Med Refill Encounter Details Date Type Department Care Team ([facility] st Contact Info) Description 12/21/2024 Refill [facility] [address] [place] [address] Diamond Blake MD 230 [place] [address] Hypothyroidism, unspecified type Social History Tobacco Use [...] Description 01/24/2025 9:15 AM EDT Office Visit [facility] [address] [place] [address] Wanda Hough CNM [address] [place] [address] 03/02/2025 10:30 AM EDT Office Visit [address] [address] Diamond Blake MD [address] [place] [address] documented as of this encounter Visit Diagnoses Diagnosis Hypothyroidism, unspecified type documented in this encounter Additional Health Concerns Assessment Noted Time PHQ-9 Depression Total Score: 14 024 9:42 AM EDT documented as of this encounter Care Teams Sdet Relationship Specialty Start Date End Date Diamond Blkae MD [address] [place] [id number] PCP - General Internal Medicine 06/30/23 Zechariah Bradley Cut Off Saw Operator Pipe BlanksThaw Shed Heater Tender 03/23/24 documented as of this encounter
--- OUTSIDE RECORDS SUMMARY | 2025-01-04 11:55 | XMS_ITS | Encounter Summary ---
Author Organization [employer] Address 75 [facility] 7t [place] [address] Care Team Providers Care Vault Clerk Name Role Phone Diamond Blake MD Primary Care Pro vider Reason for Visit * Reason Comments Med Refill Encounter Details Date Type Department Care Team (Late st Contact Info) Description 10/24/2024 Refill [facility] 230 [place] [address] Diamond Blake MD 230 [place] [address] Social History Tobacco Use Types Packs/Day Years [...] Description 01/24/2025 9:15 AM EDT Office Visit [facility] [address] [place] [address] Wanda Hough CNM [address] [place] [address] 03/02/2025 10:30 AM EDT Office Visit [address] [address] Diamond Blake MD [address] [place] [address] documented as of this encounter Visit Diagnoses Not on filedocumented in this encounter Additional Health Concerns Assessment Noted Time PHQ-9 Depression Total Score: 14 024 9:42 AM EDT documented as of this encounter Care Teams Vault Clerk Relationship Specialty Start Date End Date Diamond Blake MD [address] [place] [phone] PCP - General Internal Medicine 06/30/23 Zechariah Bradley Behavioral Therapy CoordinatorAirplane Coverer 03/23/24 documented as of this encounter
--- OUTSIDE RECORDS SUMMARY | 2025-01-04 11:55 | XMS_ITS | Encounter Summary ---
Author Organization [email or web address] Address 75 [facility] 7t [place] [address] Care Team Providers Care Painter Spray Name Role Phone Diamond Blake MD Primary Care Pro vider Reason for Visit * Reason Comments Med Refill Encounter Details Date Type Department Care Team (Late st Contact Info) Description 01/29/2024 Refill [facility] 230 [place] [address] Diamond Blake MD 230 [place] [address] Social History Tobacco Use Types Packs/Day Years [...] Description 01/24/2025 9:15 AM EDT Office Visit [facility] [address] [place] [address] Wanda Hough CNM [address] [place] [address] 03/02/2025 10:30 AM EDT Office Visit [address] [address] Diamond Blake MD [address] [place] [address] documented as of this encounter Visit Diagnoses Not on filedocumented in this encounter Additional Health Concerns Assessment Noted Time PHQ-9 Depression Total Score: 12 023 11:15 AM EST documented as of this encounter Care Teams Painter Spray Relationship Specialty Start Date End Date Diamond Blake MD [address] [place] [address] [phone] PCP - General Internal Medicine 06/30/23 Zechariah Bradley LarrimanRiveter Portable Machine 03/23/24 documented as of this encounter
--- OUTSIDE RECORDS SUMMARY | 2025-01-04 11:55 | XMS_ITS | Encounter Summary ---
Author Organization [employer] Address [address] [place] [address] 7t [place] [address] Care Team Providers Care Lawn Mower Repairer Name Role Phone Diamond Blake MD Primary Care Pro vider Reason for Visit * Reason Onset Date Comments Med Refill 07/07/2023 Encounter Details Date Type Department Care Team (Late st Contact Info) Description 07/07/[address] [facility] 505 [place] [address] Lay Avlia MD 505 [place] [address] Social History Tobacco Use Types Packs/Day Years [...] Office Visit [facility] [address] [place] [address] Wanda Hough CNM [address] [place] [address] 03/02/2025 10:30 AM EDT Office Visit [facility] 230 [place], [place] [phone] Diamond Blake MD 230 [place], [place] [phone] documented as of this encounter Visit Diagnoses Not on filedocumented in this encounter Additional Health Concerns Assessment Noted Time PHQ-9 Depression Total Score: 15 023 2:22 PM EST documented as of this encounter Care Teams Lawn Mower Repairer Relationship Specialty Start Date End Date Diamond Blake MD 230 [place], [place] [phone] PCP - General Internal Medicine 06/30/23 Zechariah Bradley Jewel Bearing TurnerWeapons Officer Naval [employer] 03/23/24 documented as of this encounter
--- OUTSIDE RECORDS SUMMARY | 2025-01-04 11:55 | XMS_ITS | Encounter Summary ---
Author Organization [employer] [facility] Address [address] [place] [address] 7t [place] [address] Care Team Providers Care Head Boys Tennis Coach Name Role Phone Diamond Blake MD Primary Care Pro vider Reason for Visit * Reason Onset Date Comments Med Refill 07/07/2023 Encounter Details Date Type Department Care Team (Late Contact Info) Description 07/07/2023 Refill [facility] [address] [place] [address] Kailash Trevizo AGNP Severe chronic obstructive pulmonary [...] Visit [facility] 230 [place], [place] [phone] Wanda Hough CNM 230 [place], [place] [phone] 03/02/2025 10:30 AM EDT Office Visit [facility] 230 [place] [address] Diamond Blake MD 230 [place], [place] [phone] documented as of this encounter Visit Diagnoses Diagnosis Severe chronic obstructive pulmonary disease (CMS/HCC) Chronic airway obstruction, not elsewhere classified Hypertension, unspecified type Hyperlipidemia, unspecified hyperlipidemia type documented in this encounter Additional Health Concerns Assessment Noted Time PHQ-9 Depression Total Score: 15 12/12/ 023 2:22 PM EST documented as of this encounter Care Teams Head Boys Tennis Coach Relationship Specialty Start Date End Date Diamond Blake MD 230 [place], [place] [phone] PCP - General Internal Medicine 06/30/23 Zechariah Bradley Supervisor Electronics InspectionIndependent Video Producer 03/23/24 documented as of this encounter
--- OUTSIDE RECORDS SUMMARY | 2025-01-04 11:55 | XMS_ITS | Encounter Summary ---
Author Organization [employer] Address [address] [facility] [address] 7t [place] [address] Care Team Providers Care Avionic Technician Name Role Phone Kailash Trevizo Primary Care Provider Unavail able Diamond Blake MD Primary Care Pro vider Reason for Visit * Reason Comments Med Refill Encounter Details Date Type Department Care Team (Late st Contact Info) Description 02/11/2023 Refill [facility] [address] [place] [address] Otoniel Bella MD 230 [place] [address] Chronic pain of both knees; Acute pain [...] Description 01/24/2025 9:15 AM EDT Office Visit [facility] [address] [place] [address] Wanda Hough CNM [address] [place] [address] 03/02/2025 10:30 AM EDT Office Visit [facility] [address] [place] [address] [phone] Diamond Blake MD 230 [place], [place] [phone] documented as of this encounter Visit Diagnoses Diagnosis Chronic pain of both knees Acute pain of left shoulder documented in this encounter Additional Health Concerns Assessment Noted Time PHQ-9 Depression Total Score: 15 023 2:22 PM EST documented as of this encounter Care Teams Avionic Technician Relationship Specialty Start Date End Date Kailash Trevizo AGNP PCP - General Family Medicine 11/13/22 06/29/23 Diamond Blake MD [address] [place] [address] [phone] PCP - General Internal Medicine 06/30/23 Zechariah Bradley Slip Cover MakerFilm Recordist 03/23/24 documented as of this encounter
--- OUTSIDE RECORDS SUMMARY | 2025-01-04 11:55 | XMS_ITS | Encounter Summary ---
Author Organization [employer] Address 75 [facility] 7t [place] [address] Care Team Providers Care Paradichlorobenzene Tender Name Role Phone Diamond Blake MD Primary Care Pro vider Reason for Visit * Reason Onset Date Comments Med Refill 12/28/2024 Encounter Details Date Type Department Care Team ([facility] st Contact Info) Description 12/28/[address] [facility] 505 [place] [address] Diamond Blake MD 230 [place] [address] Social History Tobacco Use Types Packs/Day Years [...] 01/24/2025 9:15 AM EDT Office Visit [facility] MED[facility]INE [address] [place] [address] Wanda Hough CNM [address] [place] [address] 03/02/2025 10:30 AM EDT Office Visit [facility] [address] [place] [address] Diamond Blake MD [address] [place] [address] documented as of this encounter Visit Diagnoses Not on filedocumented in this encounter Additional Health Concerns Assessment Noted Time PHQ-9 Depression Total Score: 14 024 9:42 AM EDT documented as of this encounter Care Teams Paradichlorobenzene Tender Relationship Specialty Start Date End Date Diamond Blake MD [address] [place] [phone] PCP - General Internal Medicine 06/30/23 Zechariah Bradley Studio MusicianExceptional Children'S Teacher 03/23/24 documented as of this encounter
--- OUTSIDE RECORDS SUMMARY | 2025-01-04 11:55 | XMS_ITS | Clinical Summary ---
Author Organization [employer] Address [address] [facility] [address] [place] [address] Care Team Providers Care Log Cutter Name Role Phone Diamond Blake MD [...] in her new apartment. We had the [facility] department come up and talk with her. They recommended a referral to care management. Referral placed. PHQ: 0 STI: reports no partner at this time. Pap: Last memory was in ID, approximately 5 years ago. Substance use: Denies [...] shortly cant remember date. Eye exam: Sees [facility] eye care. Dental home: Had [facility] dental appointment that she missed. She is [...] LDL-C. Eb LOPEZ et al. [place]. 2013;310(19): 7224-9643 (http://Nebo.Airside Mobile/faq/ZOT163) Chol/HDLC Ratio <5.0 (calc) 4.1 3.8 4.0 [...] see if there was an error. The labview programmer was able to find the lab orders. I discussed with patient if there was an issue with her blood work someone would contact her to set up and appointment. Osteopenia 04/17/2017 Vitamin D deficiency 04/17/2017 Resolved Problems Problem Noted Date Diagnosed Date Resolved Date Black tongue 08/18/2023 10/09/2023 Anemia 04/17/2017 08/18/2023 Encounters Date Type Department Care Team Description 12/30/2024 Population Health Risk Score [facility] ([facility] Department [address] [phone] Provider, Population Health Generic 12/30/2024 Telephone [facility] MEDICINE [address] [place] [address] Diamond Blake MD May recall 12/29/2024 Orders Only GENERIC EXTERNAL DATA DEPARTMENT Provider, Generic External Data 12/28/2024 Refill [facility] PEDS [address] [place] [address] Diamond Blake MD 12/21/2024 Refill [facility] [address] [place] [address] Diamond Blake MD Hypothyroidism, unspecified type 12/20/2024 Refill [facility] [address] [place] [address] Diamond Blake MD Hyperlipidemia, unspecified hyperlipidemia type 12/01/2024 Travel 11/30/2024 Refill [facility] [address] [place] [address] Diamond Blake MD 11/02/2024 Telephone [facility] MEDICINE [address] [place] [address] Diamond Blake MD Care Coordination (ICP care plan) 11/02/2024 Patient Outreach [facility] MEDICINE [address] [place] [address] Diamond Blake MD 10/29/2024 Refill [facility] MEDICINE [address] [place] [address] Diamond Blake MD Venous stasis dermatitis of both lower extremities 10/25/2024 Refill C MEDICINE [address] [place] [address] Sultana Glass RN Hypertension, unspecified type 10/25/2024 Refill [facility] [address] [place] [address] Diamond Blake MD Hypertension, unspecified type 10/24/2024 Refill [facility] [place] [address] Diamond Blake MD 10/21/2024 Refill [facility] [address] [facility] [place] [address] Diamond Blake MD 10/17/2024 10:30 AM EST Clinical Support [facility] DIABETES/NUTRITION [address] [facility] [place] [address] Michelle Avendaño, KASSIDY Hypertension, essential (Primary Dx); Obesity due to excess calories, unspecified obesity severity 10/17/2024 Travel 10/10/2024 Refill [facility] MEDICINE [address] [facility] [place] [address] Zaida Christy MD from Last 3 Months [...] Description 01/24/2025 9:15 AM EDT Office Visit [facility] MEDICINE [address] [place], [place] [phone] Alyce Gallo CNM [address], [place] [phone] 03/02/2025 10:30 AM EDT Office Visit [facility] MEDICINE [address] [place], [place] [phone] Diamond Blake MD [address] [place], [place] [phone] Health Maintenance Due Date Last Done Comments [...] Stimulating Hormone 1.20 0.32 - 4.0 uIU/mL [facility] Comment:TSH 3rd Generation ( [facility]) 12/29/2024 2:18 PM EDT 12/29/2024 2:18 PM EDT us Generic External Data Provider LAB BLOOD ORDERAB LES Final Result [facility] [address] [place] [phone] * T4, Free (12/29/2024 2:18 PM EDT) Free T4 (Free Thyroxine) 1.31 0.71 - 1.85 ng/dL [facility] 12/29/2024 2:18 PM EDT 12/29/2024 2:18 PM EDT us Generic External Data Provider LAB BLOOD ORDERAB LES Final Result Performing Organization Address [facility] Co de Phone Number [facility] [address] [place] [phone] * Hemoglobin A1c (09/05/2024 8:25 AM EST) Hemoglobin A1c 5.7 <6.0 % [facility] Comment:Hemoglobin A1C Refer ence Range Adults: 4.8 - 6.0 % Non diabetic: < 6.0 % Goal: < 7.0 %Additional Action Suggested: > 8.0 %Note: Hemoglobin A1c results are invalid for patients with abnormal amounts of HbF. Blood transfusions may impact the HbA1c concentration in the patient sample. Estimated Average Glucose 117 mg/dL [facility] Comment:eAG = Estimated ave rage glucose which is %A1C expressed asaverage glucose, using the formula of the R7G-DmjfvawAaqmhxt Glucose study (ADAG), Diabetes Care, Vol.31,#8,2007 Blood Venous blood specimen / Unknown 09/05/2024 8:25 AM EST 09/05/2024 11:36 AM EST us Diamond Barry MD LAB BLOOD ORDERAB LES Final Result Performing Organization Address [facility] Co de Phone Number [facility] [address] [place] [phone] * Lipid Panel, Standard (09/05/2024 8:25 AM EST) Triglycerides 134 <150 mg/dL [facility] Comment:Desirable Triglyceri de: less than 150 mg/dLBorderline High Triglyceride 150-199 mg/dLHigh Triglyceride: 200-499 mg/dLVery High Triglyceride: greater than or equal to 5OO mg/dL Cholesterol 152 <200 mg/dL [facility] Comment:Desirable Cholestero l: less than 200 mg/dLBorderline High Cholesterol: 200-239 mg/dLHigh Cholesterol: greater than 239 mg/dL LDL Cholesterol Calculated 70 <100 mg/dL [facility] Comment:Desirable LDL: less than 100 mg/dLNear Optimal/Above Optimal LDL: 110- 129 mg/dLBorderline High LDL: 130-159 mg/dLHigh LDL: 160-189 mg/dLVery High LDL: greater than or equal to 190 mg/dL HDL Cholesterol 56 >40 mg/dL [facility] Comment:Desirable HDL: great er than 40 mg/dL Note: This HDL assay may give artificially low results in patients with liver disease. Blood Venous blood specimen / Unknown 09/05/2024 8:25 AM EST 09/05/2024 11:36 AM EST Diamond Barry MD LAB BLOOD ORDERAB LES Final Result [facility] [address] [place] [phone] * HPV mRNA E6/E7 w/Reflex to HPV Genotypes 16, 18/45 (01/28/2024 11:09 AM EDT) HPV nRNA E6/E7 Not Detected Not Detected [facility] Comment:Methodology: Transcr iption-Mediated AmplificationThis assay detects E6/E7 viral messenger RNA (mRNA) from 14high-risk HPV types (16,18,31,33,35,39,45,51,52,56,58,59,66,68).Cervical sources are required for HPV testing.If a vaginal source from a patient who has had atotal hysterectomy with removal of cervix wassubmitted, please contact the testing laboratoryfor alternative testing options.For additional information, please refer tohttp://education.OM Latam/faq/DPY849t7(This link if provided for information/educational purposes only.)THIS TEST WAS PERFORMED AT:[facility] [place] [phone] CHANG MD HPV mRNA E6/E7 TNP [facility] HPV 16 RNA TNP [facility] HPV 18/45 RNA [facility] 01/28/2024 11:0 9 AM EDT 02/02/2024 12:00 PM EDT us Alyce Gallo CNM LAB CYTOLOGY ORDERABLES F inal Result [facility] [address] [place] [phone] * Pap Smear (01/28/2024 11:09 AM EDT) Swab Cervix uteri structure / Unknown 01/28/2024 11:09 AM EDT 02/02/2024 12:00 PM EDT Narrative [facility] - 02/17/2024 6:59 AM EDT ----- ------- Name: Diamond Grider ? Age/Sex: 63/F ? : 1960 Unit#: [id number] ?? Attend Dr: ALYCE GALLO CNM ?Re01/28/24 ?Status: DEP REF ? Location: HO.HHCLNP ? Disch: ? ----- ------- SPEC : [id number] ? RECD: 02/02/24 ? STATUS: ??SOUT ? REQ NUM: [id number] ? SELENE: 01[birth year]/249 ? SUBM DR: ALYCE GALLO CNM ? ENTERED: ??02/02/24 ?SP TYPE: Pap Smr ?OTHR DR: ? [...] 66, 68) ?? HPV testing performed by [facility], [place], [place]. ??See reference laboratory ?? portion of the EMR for entire report. ?Clinical Information LMP: Postmenopausal Previous PAP test: Unknown date/findings ? Material Received ?? ThinPrep-Vaginal/Cervical ----- ------- Signed (signature on file) RIANNA Han ([facility]) 02/17/24 0659 ? ----- ------- ? END OF REPORT ? us Alyce Gallo [facility] LAB CYTOLOGY ORDERABLES F inal Result [facility] [address] [place] [phone] * BI Mammogram Screening Tomosynthesis Bilateral (01/05/2024 10:40 AM EDT) Anatomical Region Laterality Modality Breast Bilateral Mammography 01/05/2024 10:4 0 AM EDT Narrative 01/27/2024 12:19 AM EDT ? [facility] ? [address] [facility] ?[place] [address] ? Mammography Report ? Signed ? Patient: Siddharthgina York,Yeni ?MR#: ?? [id number] ? : 1960 ?Acct:[id number] ? Age/Sex: 63 / F ?ADM Date: 03/19/24 ? Loc: HO.MAMMO ? Attending Dr: Fay Weinstein MD ? Ordering Physician: FAY WEINSTEIN MD ?Results: 1Neg ?? ative ? Date of Service: 01/05/24 ?Follow Up: 1 Year From Orig ?? inal Mammogram ? Procedure(s): MM tomosynthesis screening BI ?? Accession Number(s): [id number] ? cc: FAY WEINSTEIN MD; Diamond Blake [...] by Bing Amador MD in OV> ? 01/27/245 ? DD/ 39 ? TD/TT: ? Service Porter: ? Procedure Note Donotmadisynter, Image - 01/27/2024 [facility] [address] [place] [address] Mammography Report Signed Patient: Diamond Grider EMR#: [id number] : 1960Acct:[id number] Age/Sex: 63 / FADM Date: 01/05/24 Loc: HO.MAMMO Attending Dr: Fay Weinstein MD Ordering Physician: FAY WEINSTEIN MDResults: 1Neg ative Date of Service: 01/05/24Follow Up: 1 Year From Orig inal Mammogram Procedure(s): MM tomosynthesis screening BI Accession Number(s): [id number] cc: FAY WEINSTEIN MD; Diamond Blake MD [...] in OV> 01/27/24 0015 DD/ 1040 TD/TT: Service Porter: [facility] External Provider IMG BI PROCEDURES Final Result * Hepatitis C Antibody with Reflex to HCV, RNA, Quantitative, Real-Time PCR (08/28/2023 9:03 AM EST) Hepatitis C Antibody Nonreactive Nonreactive [facility] Comment:Antibodies to HCV no t detected; does not exclude early acuteHCV infection. Blood Venous blood specimen / Unknown 08/28/2023 9:03 AM EST 08/28/2023 11:14 AM EST Diamond Barry MD LAB BLOOD ORDERAB LES Final Result Performing Organization Address City/State/[facility] Co de Phone Number [facility] [address] [place] [address] [phone] * (ABNORMAL) Hm Colonoscopy (07/21/2023) Colonoscopy [...] Most Recently Relevant to Health Maintenance Insurance [facility] ST[facility] ADULT Care Teams Log Cutter Relationship Specialty Start Date End Date Diamond Blake MD [address] [place] [address] PCP - General Internal Medicine 06/30/23 Zechariah Bradley JackermanCanvas Baster Jumpbasting 03/23/24
--- OUTSIDE RECORDS SUMMARY | 2025-01-04 11:55 | XMS_ITS | Encounter Summary ---
Author Organization [employer] [facility] Address [address] [facility] [address] [place] [address] Care Team Providers Care Telegraphic Typewriter Operator Chief Name Role Phone Diamond Blake MD Primary Care Pro vider Reason for Visit * Reason Comments Med Refill Encounter Details Date Type Department Care Team (Late st Contact Info) Description 07/06/2023 Refill [facility] MEDICINE [address] [place] [address] Kailash Trevizo AGNP Hypertension, unspecified type Social [...] [facility] [address] [place] [address] Wanda Hough CNM [address] [place] [address] 03/02/2025 10:30 AM EDT Office Visit [facility] MEDICINE [address] [place] [address] Diamond Blake MD [address] [place], [place] [phone] documented as of this encounter Visit Diagnoses Diagnosis Hypertension, unspecified type documented in this encounter Additional Health Concerns Assessment Noted Time PHQ-9 Depression Total Score: 15 023 2:22 PM EST documented as of this encounter Care Teams Telegraphic Typewriter Operator Chief Relationship Specialty Start Date End Date Diamond Blake MD [address] [place], [place] [phone] PCP - General Internal Medicine 06/30/23 Zechariah Bradley Gerontology AideTubing Mill Operator 03/23/24 documented as of this encounter
--- OUTSIDE RECORDS SUMMARY | 2025-01-04 11:55 | XMS_ITS | Encounter Summary ---
Author Organization [employer] Address [address] [facility] 7 [place] [address] Care Team Providers Care Product Distribution Specialist Name Role Phone Diamond Blake MD Primary Care Pro vider Reason for Visit * Reason Onset Date Comments Med Refill 07/07/2023 Encounter Details Date Type Department Care Team (Late st Contact Info) Description 07/07/2023 Refill [facility] CHC MED & PEDS [address] [place] [address] Nava Moss MD [address] [place] [address] Severe chronic obstructive pulmonary disease (CMS/HCC) Social [...] [facility] MEDICINE [address] [place] [address] Wanda Hough CNM [address] [place], [place] [phone] 03/02/2025 10:30 AM EDT Office Visit [facility] MEDICINE [address] [place], [place] [phone] Diamond Blake MD [address] [place] [address] documented as of this encounter Visit Diagnoses Diagnosis Severe chronic obstructive pulmonary disease (CMS/HCC) Chronic airway obstruction, not elsewhere classified documented in this encounter Additional Health Concerns Assessment Noted Time PHQ-9 Depression Total Score: 15 12/12/ 023 2:22 PM EST documented as of this encounter Care Teams Product Distribution Specialist Relationship Specialty Start Date End Date Diamond Blake MD [address] [place] [phone] PCP - General Internal Medicine 06/30/23 Zechariah Bradley Assistant Sales Center ManagerEdgerman 03/23/24 documented as of this encounter
== END 2025-01-04 11:02 | disposition home or self-care (01) ==
LOC: HO.HPS 10:14
PROVIDERS: PCP Internal Medicine; Visit Provider Hospitalist
DX: J45.40 Moderate persistent asthma, uncomplicated (principal); R91.8 Other nonspecific abnormal finding of lung field; G47.33 Obstructive sleep apnea (adult) (pediatric); J30.9 Allergic rhinitis, unspecified
CPT/HCPCS: 99214

== ENCOUNTER → 2025-01-04 10:13 | Outpatient (BNVA) | payer MEDICAID, SELFPAY | PROVIDERS: PCP Internal Medicine; Visit Provider Hospitalist | DX: J45.40 Moderate persistent asthma, uncomplicated (principal); J30.9 Allergic rhinitis, unspecified; R91.8 Other nonspecific abnormal finding of lung field; G47.33 Obstructive sleep apnea (adult) (pediatric) | CPT/HCPCS: 99212 ==

== ENCOUNTER 2025-01-09 | Outpatient (REF) | payer MEDICAID, SELFPAY ==
--- OUTSIDE RECORDS SUMMARY | 2025-04-13 14:36 | XMS_ITS | Encounter Summary ---
Author Organization [employer] Address [address] [place] [address] [address] [place] [address] Care Team Providers Care Train Control Electronic Technician Name Role Phone Diamond Blake MD Primary Care Pro vider Reason for Visit * Reason Onset Date Comments Med Refill 07/08/2023 Encounter Details Date Type Department Care Team (Late st Contact Info) Description 07/08/2023 Refill [facility] [address] [place] [address] Diamond Blake MD [address] [place] [address] Severe chronic obstructive pulmonary disease (CMS/HCC); Hypertension, [...] Description 06/02/2025 10:00 AM EDT Office Visit [facility] [address] [place] [address] Diamond Blake MD [address] [place], [place] [phone] documented as of this encounter Visit Diagnoses Diagnosis Severe chronic obstructive pulmonary disease (CMS/HCC) Chronic airway obstruction, not elsewhere classified Hypertension, unspecified type Hyperlipidemia, unspecified hyperlipidemia type Chronic pain of both knees Acute pain of left shoulder documented in this encounter Additional Health Concerns Assessment Noted Time PHQ-9 Depression Total Score: 15 023 2:22 PM EST documented as of this encounter Care Teams Train Control Electronic Technician Relationship Specialty Start Date End Date Diamond Blake MD [address] [place] [address] PCP - General Internal Medicine 06/30/23 Zechariah Bradley Freight Rate SpecialistEgg Sorter 03/23/24 documented as of this encounter
== END 2025-01-09 00:01 | disposition home or self-care (01) ==
LOC: CF
PROVIDERS: PCP Internal Medicine
DX: Z47.89 Encounter for other orthopedic aftercare (principal)
CPT/HCPCS: 99212

== ENCOUNTER 2025-01-09 08:52 | Outpatient (REF) | payer MEDICAID, SELFPAY ==
[2025-01-09 09:09] LABS: MANUAL DIFF FLAG NO
[2025-01-09 10:21] LABS: Basophils Absolute Auto 0.1 X10*3/uL (0.0-0.2); Eosinophils Absolute Auto 0.2 X10*3/uL (0.0-0.4); Eosinophils Percent Auto 3.2 % (0-4); Hematocrit 35.9 % (37.0-47.0); Hemoglobin 12.2 g/dl (12.0-16.0); Imm Gran Abs Auto 0.01 X10*3/uL (0.00-0.03); Imm Gran Pct Auto 0.2 % (0.0-0.4); Lymphocytes Percent Auto 40.9 % (20-40); Mean Corpuscular Hemoglobin 28.9 pg (27.0-33.0); Mean Corpuscular Volume 85.1 fL (80.0-98.0); Mean Platelet Volume 10.2 fL (9.4-12.3); Monocytes Absolute Auto 0.3 X10*3/uL (0.1-1.2); Neutrophils Absolute Auto 2.5 x10*3/uL (2.0-8.3); Neutrophils Percent Auto 49.7 % (45-73); Platelet Count 393 X10*3/uL (160-400); Red Blood Count 4.22 X10*6/uL (4.20-5.50); Red Cell Distribution Width 12.2 % (11.0-16.0)
[2025-01-09 10:44] LABS: Anion Gap 10 (12-20); Blood Urea Nitrogen 11 mg/dL (9-16); Calcium 9.5 mg/dL (8.4-10.2); Carbon Dioxide 32 mmol/L (22-29); Chloride 104 mmol/L (96-108); Estimated Glomerular Filt Rate > 60; Glucose Random 88 mg/dL (60-115); Potassium 3.1 mmol/L (3.3-5.1); Sodium 143 mmol/L (135-145)
[2025-01-09 10:57] LABS: Erythrocyte Sedimentation Rate 20 MM/HR (0-20)
[2025-01-10 22:33] LABS: Immunoglobulin E 295 kU/L (<OR=114)
== END 2025-01-09 08:53 | disposition home or self-care (01) ==
LOC: HO.LAB 08:52
PROVIDERS: PCP Internal Medicine; Visit Provider Hospitalist
DX: J45.909 Unspecified asthma, uncomplicated (principal)
CPT/HCPCS: 36415; 80048; 82785; 85025; 85652

== ENCOUNTER 2025-01-10 08:55 | Outpatient (AMB) | payer MEDICAID, SELFPAY ==
--- NOTE | 2025-01-10 09:00 | A.OFFVIS_ITS ---
Vital Signs 01/10/25 09:02 Height 5 ft 2 in Weight 198 lb BMI 36.2 Intake Visit Reasons: PO-Lt RF Trigger 12/27/24 Intake Note: Diamond is a 75 year old right handed Iraqi speaking patient who presents today for a post operative visit s/p right ring finger A1 alice release DOS: 12/27/24 w/ Dr Hannah Barrios. Sutures removed and steri strips have been applied. Patient reports that she is doing well, states no discomfort. Investigative Shopper Required: Yes Investigative Shopper Services: Investigative Shopper Present Investigative Shopper Name: Carlosiat ID#[id number] Allergies animal dander Allergy (Verified 01/10/25 09:02) Rash tree and shrub pollen Allergy (Verified 01/10/25 09:02) Rash HPI HPI PO-Lt RF Trigger 12/27/24: Details: Diamond is a 75 year old right handed Iraqi speaking patient who presents today for a post operative visit s/p right ring finger A1 alice release DOS: 12/27/24 w/ Dr Hannah Barrios. Sutures removed and steri strips have been applied. Patient reports that she is doing well, states no discomfort. Patient does report some slightly diminished range of motion of the right ring finger, but otherwise no complaints. [facility] Medical History (Updated 01/10/25 @ 09:19 by MILEY Lizama) Snoring Renal calculi Limb swelling Sleep apnea Hx of renal calculi Pulmonary nodules Chronic allergic rhinitis Asthma Hypertension Non-toxic multinodular goiter Osteopenia Fernando's disease Hypothyroidism History of primary hyperparathyroidism Surgical History Hx of hand surgery Status post fine needle aspiration Hx of cystoscopy Hx of lithotripsy History of surgery on arm Hx of parathyroidectomy H/O partial thyroidectomy Hx of tubal ligation Family History Maternal Grandmother Diabetes Father No problems noted. Mother Hypertension Asthma Social History Are you a primary daycare assistant to a significant other at home: No Do you presently have visiting nurse or other home services: No Alcohol intake: never Patient Tobacco Use Status: Never used Tobacco Current occupational status: disabled Current occupation: right hand dominant Review of Systems Const All systems reviewed & are unremarkable except as noted in HPI and below Physical Exam Vital Signs: BMI result Body Mass Index 36.2 Extrem Other: Patient is alert, oriented, and in no acute distress. Neuro: Normal sensation of the tips of all digits of the right hand at this time Vascular: Cap refill brisk Pain: No Tenderness to palpation of the A1 alice of the right ring finger ROM: With encouragement, patient was able to make a closed fist and extend all digits of the right hand fully, no further evidence of locking and catching Skin: Well approximated and well healing incision site noted over the A1 alice of the right ring finger No lacerations or abrasions. General: No ecchymosis, erythema, or evidence of infection. Psych: Appears grossly normal Affect normal Attitude cooperative Assessment & Plan Assessment & Plan (1) Stiffness of hand joint: Code(s): M25.649 - Stiffness of unspecified hand, not elsewhere classified Category: Medical (2) Trigger finger, right ring finger: Code(s): M65.341 - Trigger finger, right ring finger Category: Medical Plan 1. Status post right ring finger trigger release DOS 12/27/2024 Patient appears to be recovering well postoperatively Patient is educated about the typical recovery course At this time, patient was referred to occupational therapy for range of motion of the right hand in the setting of postoperative stiffness Patient was amenable to this plan Patient will follow-up in 4-6 weeks for [id number]-xi-maykui check, sooner with any acute concerns Orders: Orders OT Evaluation and Treatment Today M25.649 - Stiffness of unspecified hand, not elsewhere classified, M65.341 - Trigger finger, right ring finger Coding Level of Care Code Global (43028) Diagnoses Stiffness of hand joint M25.649 Trigger finger, right ring finger M65.341
[2025-01-10 09:02] VITALS: BMI 36.2
== END 2025-01-10 09:29 | disposition home or self-care (01) ==
LOC: HO.HOS 08:56
PROVIDERS: PCP Internal Medicine
DX: M25.649 Stiffness of unspecified hand, not elsewhere classified (principal); M65.341 Trigger finger, right ring finger
CPT/HCPCS: 99024

== ENCOUNTER 2025-01-16 13:11 | Outpatient (AMB) | payer MEDICAID, SELFPAY ==
--- NOTE | 2025-01-16 14:02 | MHC.OFFVIS ---
Intake Visit Reasons: CT Followup(set) Intake Note: Patient presents today for follow up on: kidney stone and ultrasound results Imaging Completed: 09/20/24 Urology Medications: Vitamin B6 Blood Thinner: none Brokerage Purchase And Sale Clerk Required: Yes Brokerage Purchase And Sale Clerk Name: [id number] Fátima Accompanied by: Self / Same As Patient Allergies animal dander Allergy (Verified 01/16/25 16:06) Rash tree and shrub pollen Allergy (Verified 01/16/25 16:06) Rash Medication List - Last Reconciled 01/16/25 by TOM Huitron albuterol sulfate 2.5 mg (3 mL) inhalation Q4-6H PRN albuterol sulfate 90 mcg/actuation (Ventolin HFA) 2 puffs inhalation QID PRN 30 days ammonium lactate 12% appl topical atorvastatin 10 mg PO QAM calcium citrate 500 mg (2 x 250 mg calcium) PO BID cholecalciferol (vitamin D3) (Vitamin D3) 50 mcg PO DAILY compress.stocking,knee,reg,med 15-20 cm cyclobenzaprine 10 mg PO TID PRN diphenhydramine HCl (Benadryl Allergy) 50 mg PO Q8H PRN epinephrine 0.3 mg (0.3 mL) IM .q 10min x2 fluticasone propionate 50 mcg/actuation 2 sprays intranasal DAILY gmambnexthk-dyqdflcvs-imixvepx 200-62.5-25 mcg (Trelegy Ellipta) 1 ea inhalation DAILY furosemide (Lasix) 20 mg PO DAILY 7 days hydrochlorothiazide 25 mg PO DAILY hydroxyzine HCl 25 mg PO TID PRN 7 days ibuprofen 800 mg PO Q8H PRN levothyroxine 125 mcg PO DAILY loratadine 10 mg PO QAM 30 days magnesium oxide 400 mg PO BEDTIME 30 days montelukast 10 mg PO QPM 30 days naproxen 500 mg PO BID 30 days nebulizers As directed omalizumab (Xolair) 75 mg (0.5 mL) subcut Q2W 28 days omalizumab (Xolair) 150 mg subcut Q2W 28 days pyridoxine (vitamin B6) 100 mg PO DAILY 90 days sennosides (senna) 17.2 mg PO BEDTIME PRN sertraline 25 mg PO QAM triamcinolone acetonide 0.1% appl topical BID HPI Comments Details: Diamond is a pleasant 64-year-old Prydeinig-speaking female patient of Dr. Weinstein. She has a past medical history of nephrolithiasis, sleep apnea, pulmonary nodules, asthma, hypertension, osteopenia, and Fernando's disease. She presents to the office for follow-up regarding her nephrolithiasis. In discussion with the patient today she reports to be doing and feeling well. She denies having had any bothersome urinary issues or concerns since her last office visit here approximately 9 months ago. during last office visit patient had been reporting intermittent flank pain therefore CT was ordered for further assessment evaluation however follow-up was delayed per patient. recent CT results reviewed with the patient today 10/11 the kidneys are normal in size, shape, and attenuation. there is a nonobstructive 2 mm radiopaque calculi in the lower pole calyx of the left kidney there is no perinephric stranding. The bladder is unremarkable. Patient reports pain she had been experiencing has since subsided. She reports compliance with vitamin B6 daily. She reports having followed up with GI for ongoing issues with diverticulosis she had been experiencing. She denies urinary urgency, urinary frequency, incontinence, nocturia, hematuria, changes to urinary stream, fever, and or chills. In office urinalysis results reviewed with the patient today. Discussed importance of hydration given history of nephrolithiasis as well as for overall health and well-being. She otherwise offers no other issues or concerns at this time. [facility] Medical History Snoring Renal calculi Limb swelling Sleep apnea Hx of renal calculi Pulmonary nodules Chronic allergic rhinitis Asthma Hypertension Non-toxic multinodular goiter Osteopenia Fernando's disease Hypothyroidism History of primary hyperparathyroidism Surgical History Hx of hand surgery Status post fine needle aspiration Hx of cystoscopy Hx of lithotripsy History of surgery on arm Hx of parathyroidectomy H/O partial thyroidectomy Hx of tubal ligation Family History Maternal Grandmother Diabetes Father No problems noted. Mother Hypertension Asthma Social History Are you a primary patient care representative to a significant other at home: No Do you presently have visiting nurse or other home services: No Alcohol intake: never Patient Tobacco Use Status: Never used Tobacco Current occupational status: disabled Current occupation: right hand dominant Review of Systems Const Reports no additional complaints Eyes Reports no additional complaints ENT Reports no additional complaints Card Reports as per HPI Resp Reports as per HPI GI Reports no additional complaints Reports as per HPI Musc Reports as per HPI Neuro Reports no additional complaints Psych Reports no additional complaints Endo Reports as per HPI Cheko/Lymph Reports no additional complaints Aller/Immun Reports no additional complaints Physical Exam Const General: cooperative, healthy appearing, comfortable, no acute distress, well developed, alert and awake Nutritional Appearance: overweight Orientation/consciousness: patient oriented x3 Limitations: no limitations HEENT Head: Yes normal to inspection, Yes normocephalic and Yes atraumatic Ears: hearing grossly normal bilaterally Eyes General: appearance normal, both eyes and all related structures Neck Neck: Yes normal visual inspection and Yes trachea midline Chest Chest palpation & inspection: normal inspection of the chest Resp Effort & Inspection: normal respiratory effort and able to speak in complete sentences Cardio Rate: regular rate GI Inspection: Yes normal to inspection General: Yes no CVA tenderness Back/Spine/Pelvis Back: no CVA tenderness Skin General skin exam: no rashes or lesions noted Neuro General: patient oriented x3 Extrem General: Yes normal to inspection Psych Appearance: grossly normal and well kempt Mental Status: mental status grossly normal Speech and movement: Normal speech and movement present and Clear speech present Affect: normal affect Attitude: cooperative Thought process: Normal thought process present Thought content: Normal thought content present Insight: Fair insight present (Psych) Judgement: Fair judgement present (Psych) Results AMB Urinalysis, Automated UA Leukoctes 0 Vashti/uL Last Edit by [email or web address] on 01/16/25 14:19 UA Nitrite Last Edit by [email or web address] on 01/16/25 14:19 UA Urobilinogen 0.2 mg/dL Last Edit by [email or web address] on 01/16/25 14:19 UA Protein 0 mg/dL Last Edit by [email or web address] on 01/16/25 14:19 UA pH 5.5 Last Edit by [email or web address] on 01/16/25 14:19 UA Blood 80 Norberto/uL Last Edit by [email or web address] on 01/16/25 14:19 UA Specific [employer] 1.020 Last Edit by [employer] on 01/16/25 14:19 UA Ketone Negative Last Edit by [employer] on 01/16/25 14:19 UA Bilirubin 0 mg/dL Last Edit by [employer] on 01/16/25 14:19 UA Glucose 0 mg/dL Last Edit by [employer] on 01/16/25 14:19 Results Reviewed Results Reviewed: Laboratory Last Values Urine pH (Auto) 5.5 01/16/25 14:11 Specific [employer] (Auto) 1.020 01/16/25 14:11 Urine Protein (Auto) 0 mg/dL 01/16/25 14:11 Glucose (UA)(Auto) 0 mg/dL 01/16/25 14:11 Urine Ketones (Auto) Negative 01/16/25 14:11 Urine Blood (Auto) 80 Norberto/uL 01/16/25 14:11 Urine Bilirubin (Auto) 0 mg/dL 01/16/25 14:11 Urine Urobilinogen (Auto) 0.2 mg/dL 01/16/25 14:11 Leukocyte Esterase (Auto) 0 Vashti/uL 01/16/25 14:11 Date of Service: 09/20/24 Procedure(s): CT urogram FINDINGS: LUNG BASES: The visualized lung bases are unremarkable. LIVER, GALLBLADDER, AND BILIARY TREE: There are multiple hypodense nonenhancing lesions in the right hepatic lobe largest measuring 1.6 cm segment 8. They measure fluid density. The gallbladder is unremarkable with no evidence of radiopaque gallstones, gallbladder wall thickening, or obvious pericholecystic inflammatory changes. PANCREAS: Unremarkable. SPLEEN: Unremarkable. ADRENAL GLANDS: Unremarkable. KIDNEYS AND URETERS: The kidneys are normal in size, shape, and attenuation except for focal cortical scarring mid pole lateral cortex right kidney. There are nonobstructive 2 mm radiopaque calculi lower pole calyx left kidney. There is no perinephric stranding. Post contrast there is normal cortical thickness and enhancement with 1.2 cm hypodensity mid pole cortex right kidney measuring cyst density . There is good opacification of bilateral kidney pelvises and proximal and mid ureters. The entire left ureter is visualized and is of normal caliber. No obstruction narrowing seen in the left ureter. BLADDER: Unremarkable. GASTROINTESTINAL TRACT: There is scattered stool, gas and diverticuli in colon without distention. The small bowel loops are normal caliber. Appendix is normal caliber. No free air or free fluid seen. There is no inflammatory process. ABDOMINAL WALL: There is small umbilical hernia containing fat. LYMPH NODES: Normal. VASCULAR: Unremarkable. PELVIC VISCERA: Unremarkable. OSSEUS STRUCTURES: Mild degenerative disc changes with vacuum disc phenomena L5-S1 disc level. There is mild levoscoliosis CT/CT urogram IMPRESSION: Moderate diverticulosis without diverticulitis. 2 mm nonobstructive radiopaque calculi lower pole calyx left kidney. Assessment & Plan Assessment & Plan (1) Renal calculi: Code(s): N20.0 - Calculus of kidney Category: Medical Plan In office urinalysis results reviewed with the patient today; as noted above. Recent CT results reviewed with the patient today; as noted above. Continue vitamin B6; refill provided. We discussed and stressed the importance of adequate hydration relation to nephrolithiasis as well as overall health and well-being. Patient currently denies any bothersome urinary issues or concerns. She reports be happy with current voiding parameters. Will continue with surveillance monitoring of nephrolithiasis. Will obtain renal ultrasound in 6 months. Follow-up in 6 months with imaging to be completed prior; or sooner with any issues, concerns, and or questions. Orders: Orders AMB Urinalysis Automated Today Z13.9 - Encounter for screening, unspecified US renal BI 6 Months N20.0 - Calculus of kidney Medications: Refilled pyridoxine (vitamin B6) 100 mg PO DAILY 90 days 90 tabs 1RF pyridoxine (vitamin B6) 100 mg PO DAILY 90 days 90 tabs 1RF Patient Instructions: The patient had an opportunity to ask questions regarding the treatment plan. All questions were answered. Physical exam, labs, and imaging were discussed and reviewed in detail. As well as risks, benefits, and discussion of treatment choices. No major barriers to understanding were identified. The patient expressed understanding and agreement with the above treatment plan. The patient was made aware they should contact our office by phone for worsening of their current condition, the appearance of new symptoms, or with any questions or concerns. Compliance is encouraged with any medications and follow up testing that is ordered. It is a privilege to be allowed the opportunity to participate in? your urological care.? Again, if you have any questions or concerns If you have any questions or concerns please do not hesitate to contact me. The office is [phone]. This note is constructed using voice recognition software. While every effort has been made to ensure accuracy scheduling clerk errors may have been included. Yours sincerely, TOM Huitron Coding Level of Care Code Est Pt Level 3 (63932) Complex EM visit Add On G2211 Diagnoses Renal calculi N20.0
--- OUTSIDE RECORDS SUMMARY | 2025-01-16 14:53 | XMS_ITS | Encounter Summary ---
Author Organization [facility] Address [address] [facility] 7t [place] [address] Care Team Providers Care Arc Cutter Name Role Phone Diamond Blake MD Primary Care Pro vider Reason for Visit * Reason Comments Med Refill Encounter Details Date Type Department Care Team ([facility] st Contact Info) Description 10/25/2024 Refill [facility] [address] [place] [address] Diamond Blake MD [address] [place] [address] Hypertension, unspecified type Social History Tobacco Use [...] 9:15 AM EDT Office Visit [facility] MEDICINE [address] [place] [phone] Wanda Hough CNM [address] [place] [phone] 03/02/2025 10:30 AM EDT Office Visit [address] [address] Diamond Blake MD [address] [place] [phone] documented as of this encounter Visit Diagnoses Diagnosis Hypertension, unspecified type documented in this encounter Additional Health Concerns Assessment Noted Time PHQ-9 Depression Total Score: 14 024 9:42 AM EDT documented as of this encounter Care Teams Arc Cutter Relationship Specialty Start Date End Date Diamond Blake MD [address] [place] [phone] PCP - General Internal Medicine 06/30/23 Zechariah Bradley Pit Crane OperatorWood Floor Layer 03/23/24 documented as of this encounter
--- OUTSIDE RECORDS SUMMARY | 2025-01-16 14:53 | XMS_ITS | Encounter Summary ---
Author Organization [employer] Address [address] [facility] 7t [place] [address] Care Team Providers Care Staff Development Manager Name Role Phone Diamond Blake MD Primary Care Pro vider Reason for Visit * Reason Comments Med Refill Encounter Details Date Type Department Care Team (Late st Contact Info) Description 10/24/2024 Refill [facility] MEDICINE [address] [place] [address] Diamond Blake MD [address] [place] [address] Social History Tobacco Use Types Packs/Day Years [...] 01/24/2025 9:15 AM EDT Office Visit [facility] MEDICINE [address] [place] [phone] Wanda Hough CNM [address] [place] [phone] 03/02/2025 10:30 AM EDT Office Visit [address] [address] Diamond Blake MD [address] [place] [phone] documented as of this encounter Visit Diagnoses Not on filedocumented in this encounter Additional Health Concerns Assessment Noted Time PHQ-9 Depression Total Score: 14 024 9:42 AM EDT documented as of this encounter Care Teams Staff Development Manager Relationship Specialty Start Date End Date Diamond Blake MD [address] [place] [phone] PCP - General Internal Medicine 06/30/23 Zechariah Bradley Cement Mason HelperMedical Office Worker 03/23/24 documented as of this encounter
--- OUTSIDE RECORDS SUMMARY | 2025-01-16 14:53 | XMS_ITS | Encounter Summary ---
Author Organization [employer] [facility] Address [address] [place] [address] 7 [place] [address] Care Team Providers Care Cream Dumper Name Role Phone Diamond Blake MD Primary Care Pro vider Reason for Visit * Reason Onset Date Comments Med Refill 07/08/2023 Encounter Details Date Type Department Care Team (Late st Contact Info) Description 07/08/2023 Refill [facility] MEDICINE [address] [place] [address] Diamond Blake MD 230 [place] [address] Severe chronic obstructive pulmonary disease (CMS/HCC); Hypertension, [...] 01/24/2025 9:15 AM EDT Office Visit [facility] MEDICINE [address] [place] [address] Wanda Hough, TRUDY [address] [place], [place] [phone] 03/02/2025 10:30 AM EDT Office Visit [facility] MEDICINE [address] [place], [place] [phone] Diamond Blake MD [address] [place], [place] [phone] documented as of this encounter Visit Diagnoses [...] documented as of this encounter Care Teams Cream Dumper Relationship Specialty Start Date End Date Diamond Blake MD [address] [place] [phone] PCP - General Internal Medicine 06/30/23 Zechariah Bradley Dual Rate DealerMachine Bender 03/23/24 documented as of this encounter
--- OUTSIDE RECORDS SUMMARY | 2025-01-16 14:53 | XMS_ITS | Encounter Summary ---
Author Organization [employer] Address [address] [facility] 7t [place] [address] Care Team Providers Care Pulmonologist/Intensivist Name Role Phone Diamond Blake MD Primary Care Pro vider Reason for Visit * Reason Comments Med Refill Encounter Details Date Type Department Care Team (Late st Contact Info) Description 01/29/2024 Refill [facility] [address] [place] [address] Diamond Blake MD [address] [place] [address] Social History Tobacco Use Types Packs/Day Years [...] Description 01/24/2025 9:15 AM EDT Office Visit [facility] MEDICINE [address] [place] [address] Wanda Hough CNM [address] [place] [address] 03/02/2025 10:30 AM EDT Office Visit [address] [address] Diamond Blake MD [address] [place] [phone] documented as of this encounter Visit Diagnoses Not on filedocumented in this encounter Additional Health Concerns Assessment Noted Time PHQ-9 Depression Total Score: 12 023 11:15 AM EST documented as of this encounter Care Teams Pulmonologist/Intensivist Relationship Specialty Start Date End Date Diamond Blake MD [address] [place] [address] [phone] PCP - General Internal Medicine 06/30/23 Zechariah Bradley Manager HospitalSighter 03/23/24 documented as of this encounter
--- OUTSIDE RECORDS SUMMARY | 2025-01-16 14:53 | XMS_ITS | Encounter Summary ---
Author Organization [employer] Address [address] [facility] [address] 7[address] [place] [address] Care Team Providers Care Independent Distributor Name Role Phone Kailash Trevizo Primary Care Provider Unavail able Diamond Blake MD Primary Care Pro vider Reason for Visit * Reason Comments Med Refill Encounter Details Date Type Department Care Team (Late st Contact Info) Description 02/11/2023 Refill [facility] [address] [place] [address] Otoniel Bella MD [address] [place] [address] Chronic pain of both knees; Acute pain [...] 01/24/2025 9:15 AM EDT Office Visit [facility] MED[facility]INE [address] [place] [address] Wanda Hough CNM [address] [place] [address] 03/02/2025 10:30 AM EDT Office Visit [facility] MEDICINE [address] [place] [address] [phone] Diamond Blake MD [address] [place], [place] [phone] documented as of this encounter Visit Diagnoses Diagnosis Chronic pain of both knees Acute pain of left shoulder documented in this encounter Additional Health Concerns Assessment Noted Time PHQ-9 Depression Total Score: 15 023 2:22 PM EST documented as of this encounter Care Teams Independent Distributor Relationship Specialty Start Date End Date Kailash Trevizo AGNP PCP - General Family Medicine 11/13/22 06/29/23 Diamond Blake MD [address] [place] [address] [phone] PCP - General Internal Medicine 06/30/23 Zechariah Bradley Fitness Centre ManagerRegulatory Compliance Director 03/23/24 documented as of this encounter
--- OUTSIDE RECORDS SUMMARY | 2025-01-16 14:53 | XMS_ITS | Encounter Summary ---
Author Organization [employer] [facility] Address [address] [facility] 7t [place] [address] Care Team Providers Care Placement Specialist Name Role Phone Kailash Trevizo Primary Care Provider Unavail able Diamond Blake MD Primary Care Pro vider Encounter Details Date Type Department Care Team (Late st Contact Info) Description 06/02/2023 Abstract [facility] [address] [place] [address] Mervin Davisaris [address] [place] [address] Social History Tobacco Use Types Packs/Day Years [...] Description 01/24/2025 9:15 AM EDT Office Visit [facility] MEDICINE [address] [place] [address] Wanda Hough CNM [address] [place] [address] 03/02/2025 10:30 AM EDT Office Visit [facility] MED[facility] [address] [place], [place] [phone] Diamond Blake MD [address] [place] [address] documented as of this encounter Visit Diagnoses Not on filedocumented in this encounter Additional Health Concerns Assessment Noted Time PHQ-9 Depression Total Score: 15 023 2:22 PM EST documented as of this encounter Care Teams Placement Specialist Relationship Specialty Start Date End Date Kailash Trevizo AGNP PCP - General Family Medicine 11/13/22 06/29/23 Diamond Blake MD [address] [place] [phone] PCP - General Internal Medicine 06/30/23 Zechariah Bradley Salt Washer Harvesting StationPredictive Maintenance Technician 03/23/24 documented as of this encounter
--- OUTSIDE RECORDS SUMMARY | 2025-01-16 14:53 | XMS_ITS | Encounter Summary ---
Author Organization [employer] Address [address] [facility] [address] [place] [address] Care Team Providers Care Armored Car Messenger Name Role Phone Diamond Blake MD Primary Care Pro vider Reason for Visit * Reason Onset Date Comments Med Refill 09/28/2023 Encounter Details Date Type Department Care Team (Late st Contact Info) Description 09/28/2023 Refill [facility] MED [facility] PEDS [address] [place] [address] Zaida Christy MD [address] [place] [address] Hypertension, unspecified type Social History Tobacco Use [...] 9:15 AM EDT Office Visit [facility] MEDICINE [address] [place] [phone] Wanda Hough CNM [address] [place] [phone] 03/02/2025 10:30 AM EDT Office Visit [facility] MEDICINE [address] [place] [phone] Diamond Blake MD [address] [place] [address] [phone] documented as of this encounter Visit Diagnoses Diagnosis Hypertension, unspecified type documented in this encounter Additional Health Concerns Assessment Noted Time PHQ-9 Depression Total Score: 15 023 2:22 PM EST documented as of this encounter Care Teams Armored Car Messenger Relationship Specialty Start Date End Date Diamond Blake MD [address] [place] [phone] PCP - General Internal Medicine 06/30/23 Zechariah Bradley Cotton ChopperManager Talent Management 03/23/24 documented as of this encounter
--- OUTSIDE RECORDS SUMMARY | 2025-01-16 14:53 | XMS_ITS | Encounter Summary ---
Author Organization [employer] Address [address] [facility] [address] [place] [address] Care Team Providers Care Traffic Coordinator Name Role Phone Diamond Blake MD Primary Care Pro vider Reason for Visit * Reason Comments Med Refill Encounter Details Date Type Department Care Team (Late st Contact Info) Description 01/15/2025 Refill [facility] MEDICINE [address] [place] [address] Pradeep Deluna MD [address] [place] [address] Social History Tobacco Use Types Packs/Day Years [...] 9:15 AM EDT Office Visit [facility] MEDICINE [address] [place] [address] Wanda Hough CNM [address] [place] [phone] 03/02/2025 10:30 AM EDT Office Visit [address] [address] Diamond Blake MD [address] [place] [phone] documented as of this encounter Visit Diagnoses Not on filedocumented in this encounter Additional Health Concerns Assessment Noted Time PHQ-9 Depression Total Score: 14 024 9:42 AM EDT documented as of this encounter Care Teams Traffic Coordinator Relationship Specialty Start Date End Date Diamond Blake MD [address] [place] [phone] PCP - General Internal Medicine 06/30/23 Zechariah Bradley Out Of School Hours Care WorkerPallet Repairer 03/23/24 documented as of this encounter
--- OUTSIDE RECORDS SUMMARY | 2025-01-16 14:54 | XMS_ITS | Encounter Summary ---
Author Organization [employer] [facility] Address [address] [facility] 7t [place] [address] Care Team Providers Care Brake [address] Freight Name Role Phone Diamond Blake MD Primary Care Pro vider Reason for Visit * Reason Comments Med Refill Encounter Details Date Type Department Care Team (Late st Contact Info) Description 07/06/2023 Refill [facility] MEDICINE [address] [place] [address] Kailash Trevizo AGNP Hypertension, unspecified type Social [...] Visit [facility] MEDICINE [address] [place] [address] Wanda Hough CNM [address] [place] [address] 03/02/2025 10:30 AM EDT Office Visit [facility] MEDICINE [address] [place] [address] Diamond Blake MD [address] [place], [place] [phone] documented as of this encounter Visit Diagnoses Diagnosis Hypertension, unspecified type documented in this encounter Additional Health Concerns Assessment Noted Time PHQ-9 Depression Total Score: 15 023 2:22 PM EST documented as of this encounter Care Teams [address] Freight Relationship Specialty Start Date End Date Diamond Blake MD [address] [place], [place] [phone] PCP - General Internal Medicine 06/30/23 Zechariah Bradley Senior Media BuyerPharmacy Coordinator 03/23/24 documented as of this encounter
--- OUTSIDE RECORDS SUMMARY | 2025-01-16 14:54 | XMS_ITS | Encounter Summary ---
Author Organization [employer] Address [address] [facility] 7 [place] [address] Care Team Providers Care Melt Helper Name Role Phone Diamond Blake MD Primary Care Pro vider Reason for Visit * Reason Onset Date Comments Med Refill 07/07/2023 Encounter Details Date Type Department Care Team (Late st Contact Info) Description 07/07/2023 Refill [facility] [address] [place] [address] Nava Moss MD 505 [place] [address] Severe chronic obstructive pulmonary disease (CMS/HCC) Social [...] 01/24/2025 9:15 AM EDT [facility] Visit [facility] 230 [place] [address] Wanda Hough CNM [address] [place], [place] [phone] 03/02/2025 10:30 AM EDT Office Visit [facility] [address] [place], [place] [phone] Diamond Blake MD 230 [place] [address] documented as of this encounter Visit Diagnoses Diagnosis Severe chronic obstructive pulmonary disease (CMS/HCC) Chronic airway obstruction, not elsewhere classified documented in this encounter Additional Health Concerns Assessment Noted Time PHQ-9 Depression Total Score: 15 12/12/ 023 2:22 PM EST documented as of this encounter Care Teams Melt Helper Relationship Specialty Start Date End Date Diamond Blake MD [address] [place] [phone] PCP - General Internal Medicine 06/30/23 Zechariah Bradley Refueling Ramp AttendantConstruction Recruiter 03/23/24 documented as of this encounter
--- OUTSIDE RECORDS SUMMARY | 2025-01-16 14:54 | XMS_ITS | Encounter Summary ---
Author Organization [employer] Address [address] [facility] [address] 7t [place] [address] Care Team Providers Care Artistic Associate Name Role Phone Diamond Blake MD Primary Care Pro vider Reason for Visit * Reason Onset Date Comments Med Refill 07/07/2023 Encounter Details Date Type Department Care Team (Late st Contact Info) Description 07/07/2023 Refill [facility] 230 [place] [address] Otoniel Bella MD 230 [place] [address] Chronic pain of both knees; Acute pain [...] Office Visit [facility] MEDICINE [address] [place] [address] Wanda Hoguh CNM [address] [place], [place] [phone] 03/02/2025 10:30 AM EDT Office Visit [facility] [address] [place] [address] [phone] Diamond Blake MD [address] [place] [address] documented as of this encounter Visit Diagnoses Diagnosis Chronic pain of both knees Acute pain of left shoulder documented in this encounter Additional Health Concerns Assessment Noted Time PHQ-9 Depression Total Score: 15 12/12/ 023 2:22 PM EST documented as of this encounter Care Teams Artistic Associate Relationship Specialty Start Date End Date Diamond Blake MD [address] [place] [address] [phone] PCP - General Internal Medicine 06/30/23 Zechariah Bradley Taffy Candy MakerLens Assorter 03/23/24 documented as of this encounter
--- OUTSIDE RECORDS SUMMARY | 2025-01-16 14:54 | XMS_ITS | Clinical Summary ---
Author Organization [employer] Address [address] [facility] 7t [place] [address] Care Team Providers Care Supervisor Electronic Testing Name Role Phone Diamond Blake MD Primary [...] EVERY EVENING 90 tablet 1 024 Active hydroCHLOROthiaz ricarda (HYDRODiuril) 25 MG [...] per week. 2 mL 025 2024 Active metFORMIN XR (Glucophage-XR) 500 MG 24 hr tablet TAKE 1 TABLET BY MOUTH EVERY DAY IN THE EVENING WITH FOOD 90 tablet 025 Active D3 Super Strength [...] before breakfast. 90 tablet 024 2024 Discontinued metFORMIN XR (Glucophage-XR) 500 MG 24 hr tablet TAKE 1 TABLET BY MOUTH EVERY EVENING WITH FOOD 90 tablet 2024 Discontinued Tirzepatide-Weig ht Management (Zepbound) 5 [...] in her new apartment. We had the [facility] department come up and talk with her. They recommended a referral to care management. Referral placed. PHQ: 0 STI: reports no partner at this time. Pap: [place] memory [place] in [place], approximately 5 years ago. Substance use: Denies [...] shortly cant remember date. Eye exam: Sees [facility] eye care. Dental home: Had [facility] dental appointment that she missed. She [...] of LDL-C. Eb LOPEZ et al. [place]. 2013;310(55): 7226-8636 ([email or web address]) Chol/HDLC Ratio <5.0 (calc) 4.1 3.8 4.0 [...] see if there was an error. The photo lab specialist was able to find the lab orders. I discussed with patient if there was an issue with her blood work someone would contact her to set up and appointment. Osteopenia 04/17/2017 Vitamin D deficiency 04/17/2017 Resolved Problems Problem Noted Date Diagnosed Date Resolved Date Black tongue 08/18/2023 10/09/2023 Anemia 04/17/2017 08/18/2023 Encounters Date Type Department Care Team Description 01/15/2025 Refill [facility] MEDICINE [address] [place] [address] Pradeep Deluna MD 01/09/2025 Orders Only GENERIC EXTERNAL DATA DEPARTMENT Provider, Generic External Data 12/30/2024 Population Health Risk Score [facility] Department [address] [phone] Provider, Population Health Generic 12/30/2024 Telephone [facility] MEDICINE [address] [place] [address] Diamond Blake MD May recall 12/29/2024 Orders Only GENERIC EXTERNAL DATA DEPARTMENT Provider, Generic External Data 12/28/2024 Refill [facility]S [address] [place] [address] Diamond Blake MD 12/21/2024 Refill [facility] [address] [place] [address] Diamond Blake MD Hypothyroidism, unspecified type 12/20/2024 Refill [facility] [address] [place] [address] Diamond Blake MD Hyperlipidemia, unspecified hyperlipidemia type 12/01/2024 Travel 11/30/2024 Refill [facility]S [address] [place] [address] Diamond Blake MD 11/02/2024 Telephone [facility] MEDICINE [address] [place] [address] Diamond Blake MD Care Coordination (ICP care plan) 11/02/2024 Patient Outreach [facility] MEDICINE [address] [place] [address] Diamond Blake MD 10/29/2024 Refill [facility] MEDICINE [address] [place] [address] Diamond Blake MD Venous stasis dermatitis of both lower extremities 10/25/2024 Refill [facility] MEDICINE [address] [place] [address] Sultana Glass RN Hypertension, unspecified type 10/25/2024 Refill [facility] [address] [place] [address] Diamond Blake MD Hypertension, unspecified type 10/24/2024 Refill [facility] MEDICINE [address] [place] [address] Diamond Blake MD 10/21/2024 Refill [facility] MEDICINE [address] [place] [address] Diamond Blake MD from Last 3 Months [...] 9:15 AM EDT Office Visit [facility] MEDICINE [address] [place] [phone] Alyce Gallo, TRUDY 230 [place] [address] 03/02/2025 10:30 AM EDT Office Visit [facility] MEDICINE [address] [place], [place] [phone] Diamond Blake MD [address] [place], [place] [phone] Health Maintenance Due Date Last Done Comments [...] Procedure Name Priority Date/Time Associated Diagnosis Comments IMMUNOGLOBULIN E Routine 01/09/2025 9:08 AM EDT SED RATE BY MODIFIED WESTERGREN Routine 01/09/2025 9:08 AM EDT BASIC METABOLIC PANEL Routine 01/09/2025 9:08 AM EDT CBC WITH AUTO DIFFERENTIAL Routine 01/09/2025 9:08 AM EDT TSH Routine 12/29/2024 2:18 PM EDT T4, [...] Recently Relevant to Health Maintenance Results * (ABNORMAL) CBC auto differential (01/09/2025 9:08 AM EDT) White Blood Count 5.0 4.8 - 10.8 X10*3/uL [facility] Red Blood Count 4.22 4.20 - 5.50 X10*6/uL [facility] Hemoglobin 12.2 12.0 - 16.0 g/dl [facility] Hematocrit 35.9(L) 37.0 - 47.0 % [facility] Mean Corpuscular Volume 85.1 80.0 - 98.0 fL [facility] Mean Corpuscular Hemoglobin 28.9 27.0 - 33.0 pg [facility] Mean Corpuscular HGB Conc 34.0 31.0 - 35.0 g/dl [facility] Red Cell Distribution Width 12.2 11.0 - 16.0 % [facility] Platelet Count 393 160 - 400 X10*3/uL [facility] Mean Platelet Volume 10.2 9.4 - 12.3 fL [facility] Neutrophils Percent Auto 49.7 45 - 73 % [facility] Imm Gran Pct Auto 0.2 0.0 - 0.4 % [facility] Lymphocytes Percent Auto 40.9(H) 20 - 40 % [facility] Monocytes Percent Auto 5.0 2 - 11 % [facility] Eosinophils Percent Auto 3.2 0 - 4 % [facility] Basophils Percent Auto 1.0 0 - 2 % [facility] NRBC Pct Auto 0.0 0.0 - 0.2 /100WBC [facility] Neutrophils Absolute Auto 2.5 2.0 - 8.3 x10*3/uL [facility] Imm Gran Abs Auto 0.01 0.00 - 0.03 X10*3/uL [facility] Lymphocytes Absolute Auto 2.0 1.2 - 4.9 X10*3/uL [facility] Monocytes Absolute Auto 0.3 0.1 - 1.2 X10*3/uL [facility] Eosinophils Absolute Auto 0.2 0.0 - 0.4 X10*3/uL [facility] Basophils Absolute Auto 0.1 0.0 - 0.2 X10*3/uL [facility] NRBC Abs Auto 0.000 0.0 - 0.012 X10*3/uL [facility] 01/09/2025 9:08 AM EDT 01/09/2025 9:08 AM EDT us Generic External Data Provider LAB BLOOD ORDERAB LES Final Result [facility] [address] [place] [phone] * Sed Rate by Modified Aydinergren (01/09/2025 9:08 AM EDT) [facility] Erythrocyte Sedimentation Rate 20 0 - 20 MM/HR [facility] Comment:Patients with polycy themia and many hemoglobin abnormalitiesmay have depressed sed rates whereas patients with anemiamay have elevated sed rates. 01/09/2025 9:08 AM EDT 01/09/2025 9:08 AM EDT Generic External Data Provider LAB BLOOD ORDERAB LES Final Result Performing Organization Address City/[facility]/ZIP Co de Phone Number [facility] [address] [place] [phone] * (ABNORMAL) Immunoglobulin E (01/09/2025 9:08 AM EDT) [facility] Immunoglobulin E 295(A) <LX=430 kU/L [facility] Comment:THIS TEST WAS PERFOR MED AT:[employer] [place] [id number] CHANG MD 01/09/2025 9:08 AM EDT 01/09/2025 9:08 AM EDT us Generic External Data Provider LAB BLOOD ORDERAB LES Final Result Performing Organization Address City/[facility]/ZIP Co de Phone Number [facility] [address] [place] [phone] * (ABNORMAL) Basic Metabolic Panel (01/09/2025 9:08 AM EDT) [facility] Sodium 143 135 - 145 mmol/L [facility] Potassium 3.1(L) 3.3 - 5.1 mmol/L [facility] Chloride 104 96 - 108 mmol/L [facility] Carbon Dioxide 32(H) 22 - 29 mmol/L [facility] Anion Gap 10(L) 12 - 20 [facility] Urea Nitrogen (BUN) 11 9 - 16 mg/dL [facility] Creatinine, Serum 0.65 0.5 - 1.4 mg/dL [facility] Estimated Glomerular Filt Rate >60 [facility] Comment:Chronic Kidney Disea se: Estimated GFR < 60 mL/min/1.41g8Deoudv Kidney Disease: Estimated GFR < 15 mL/min/1.73m2 Glucose 88 60 - 115 mg/dL [facility] Calcium 9.5 8.4 - 10.2 mg/dL [facility] 01/09/2025 9:08 AM EDT 01/09/2025 9:08 AM EDT us Generic External Data Provider LAB BLOOD ORDERAB LES Final Result Performing Organization Address [facility] Co de Phone Number [facility] [address] [place] [phone] * TSH (12/29/2024 2:18 PM EDT) Thyroid Stimulating Hormone 1.20 0.32 - 4.0 uIU/mL [facility] Comment:TSH 3rd Generation ( [facility]) 12/29/2024 2:18 PM EDT 12/29/2024 2:18 PM EDT us Generic External Data Provider LAB BLOOD ORDERAB LES Final Result Performing Organization Address [facility]/ZIP Co de Phone Number [facility] [address] [place] [phone] * T4, Free (12/29/2024 2:18 PM EDT) Free T4 (Free Thyroxine) 1.31 0.71 - 1.85 ng/dL [facility] 12/29/2024 2:18 PM EDT 12/29/2024 2:18 PM EDT Generic External Data Provider LAB BLOOD ORDERAB LES Final Result Performing Organization Address City/[facility] Co de Phone Number [facility] [address] [place] [phone] * Hemoglobin A1c (09/05/2024 8:25 AM EST) Hemoglobin A1c 5.7 <6.0 % [facility] Comment:Hemoglobin A1C Refer ence Range Adults: 4.8 - 6.0 % Non diabetic: < 6.0 % Goal: < 7.0 %Additional Action Suggested: > 8.0 %Note: Hemoglobin A1c results are invalid for patients with abnormal amounts of HbF. Blood transfusions may impact the HbA1c concentration in the patient sample. Estimated Average Glucose 117 mg/dL [facility] Comment:eAG = Estimated ave rage glucose which is %A1C expressed asaverage glucose, using the formula of the F5Q-XpsqjilCyytrss Glucose study (ADAG), Diabetes Care, Vol.31,#8,2007 Blood Venous blood specimen / Unknown 09/05/2024 8:25 AM EST 09/05/2024 11:36 AM EST us Diamond Barry MD LAB BLOOD ORDERAB LES Final Result Performing Organization Address [facility] Co de Phone Number [facility] [address] [place] [phone] * Lipid Panel, Standard (09/05/2024 8:25 AM EST) Triglycerides 134 <150 mg/dL [facility] Comment:Desirable Triglyceri de: less than 150 mg/dLBorderline High Triglyceride 150-199 mg/dLHigh Triglyceride: 200-499 mg/dLVery High Triglyceride: greater than or equal to 5OO mg/dL Cholesterol 152 <200 mg/dL [facility] Comment:Desirable Cholestero l: less than 200 mg/dLBorderline High Cholesterol: 200-239 mg/dLHigh Cholesterol: greater than 239 mg/dL LDL Cholesterol Calculated 70 <100 mg/dL [facility] Comment:Desirable LDL: less than 100 mg/dLNear Optimal/Above Optimal LDL: 110- 129 mg/dLBorderline High LDL: 130-159 mg/dLHigh LDL: 160-189 mg/dLVery High LDL: greater than or equal to 190 mg/dL HDL Cholesterol 56 >40 mg/dL [facility] Comment:Desirable HDL: great er than 40 mg/dL Note: This HDL assay may give artificially low results in patients with liver disease. Blood Venous blood specimen / Unknown 09/05/2024 8:25 AM EST 09/05/2024 11:36 AM EST us Diamond Barry MD LAB BLOOD ORDERAB LES Final Result [facility] [address] [place] [phone] * HPV mRNA E6/E7 w/Reflex to HPV Genotypes 16, 18/45 (01/28/2024 11:09 AM EDT) HPV nRNA E6/E7 Not Detected Not Detected [facility] Comment:Methodology: Transcr iption-Mediated AmplificationThis assay detects E6/E7 viral messenger RNA (mRNA) from 14high-risk HPV types (16,18,31,33,35,39,45,51,52,56,58,59,66,68).Cervical sources are required for HPV testing.If a vaginal source from a patient who has had atotal hysterectomy with removal of cervix wassubmitted, please contact the testing laboratoryfor alternative testing options.For additional information, please refer tohttp://education.in3Dgallery/faq/VKK059n9(This link if provided for information/educational purposes only.)THIS TEST WAS PERFORMED AT:[employer] [place] [id number] CHANG MD HPV mRNA E6/E7 [facility] HPV 16 RNA [facility] HPV 18/45 RNA [facility] 01/28/2024 11:0 9 AM EDT 02/02/2024 12:00 PM EDT Alyce Gallo [facility] CYTOLOGY ORDERABLES F inal Result [facility] [address] [place] [phone] * Pap Smear (01/28/2024 11:09 AM EDT) Swab Cervix uteri structure / Unknown 01/28/2024 11:09 AM EDT 02/02/2024 12:00 PM EDT Narrative [facility] - 02/17/2024 6:59 AM EDT ----- ------- Name: Diamond Grider ? Age/Sex: 63/F ? : 1960 Unit#: [id number] ?? Attend Dr: ALYCE GALLO [facility] ?Re01/28/24 ?Status: DEP REF ? Location: HO.HHCLNP ? Disch: ? ----- ------- SPEC : [id number] ? RECD: 02/02/24-1199 ? STATUS: ??SOUT ? REQ NUM: [id number] ? SELENE: 01/28/24 ? SUBM DR: ALYCE GALLO CNM ? [...] 66, 68) ?? HPV testing performed by [address], [place], [place]. ??See reference laboratory ?? portion of the EMR for entire report. ?Clinical Information LMP: Postmenopausal Previous PAP test: Unknown date/findings ? Material Received ?? ThinPrep-Vaginal/Cervical ----- ------- Signed (signature on file) RIANNA Han ([facility]) 02/17/24 0659 ? ----- ------- ? END OF REPORT ? us Alyce Gallo [facility] CYTOLOGY ORDERABLES F inal Result [facility] [address] [place] [phone] * BI Mammogram Screening Tomosynthesis Bilateral (01/05/2024 10:40 AM EDT) Anatomical Region Laterality Modality Breast Bilateral Mammography 01/05/2024 10:4 0 AM EDT Narrative 01/27/2024 12:19 AM EDT ? [facility] [place] ? [address] [facility] Dr[address] ?[place] [address] ? Mammography Report ? Signed ? Patient: Siddharthgina YorkDiamond ?MR#: ?? [id number] ? : 1960 ?Acct:[id number] ? Age/Sex: 63 / F ?ADM Date: 03/19/24 ? Loc: HO.MAMMO ? Attending Dr: Fay Weinstein MD ? Ordering Physician: FAY WEINSTEIN MD ?Results: 1Neg ?? ative ? Date of Service: 01/05/24 ?Follow Up: 1 Year From Orig ?? inal Mammogram ? Procedure(s): MM tomosynthesis screening BI ?? Accession Number(s): [id number] ? cc: FAY WEINSTEIN MD; Diamond Blake [...] by Bing Amador MD in OV> ? 04/08/115 ? DD/ ? TD/TT: ? Dish Technician: ? Procedure Note Donotuseinterpreter, Image - 01/27/2024 [facility] [address] [place], [place] [address] Mammography Report Signed Patient: Diamond Grider EMR#: [id number] : 1960Acct:[id number] Age/Sex: 63 / FADM Date: 01/05/24 Loc: HO.MAMMO Attending Dr: Fya Weinstein MD Ordering Physician: FAY WEINSTEIN MDResults: 1Neg ative Date of Service: 01/05/24Follow Up: 1 Year From Orig inal Mammogram Procedure(s): MM tomosynthesis screening BI Accession Number(s): [id number] cc: FAY WEINSTEIN MD; Diamond Blake MD [...] in OV> 01/27/24 0015 DD/ 1040 TD/TT: Dish Technician: [facility] External Provider IMG BI PROCEDURES Final Result * Hepatitis C Antibody with Reflex to HCV, RNA, Quantitative, Real-Time PCR (08/28/2023 9:03 AM EST) Hepatitis C Antibody Nonreactive Nonreactive [facility] Comment:Antibodies to HCV no t detected; does not exclude early acuteHCV infection. Blood Venous blood specimen / Unknown 08/28/2023 9:03 AM EST 08/28/2023 11:14 AM EST Diamond Barry MD LAB BLOOD ORDERAB LES Final Result [facility] [address] [place], [place] [phone] * (ABNORMAL) Hm Colonoscopy (07/21/2023) Colonoscopy [...] Most Recently Relevant to Health Maintenance Insurance [facility] ST[facility] AD[facility] Care Teams Supervisor Electronic Testing Relationship Specialty Start Date End Date Diamond Blake MD [address] [place] [phone] PCP - General Internal Medicine 06/30/23 Zechariah Bradley Lacquer MixerDragger Out 03/23/24
--- OUTSIDE RECORDS SUMMARY | 2025-01-16 14:54 | XMS_ITS | Encounter Summary ---
Author Organization [employer] Address [address] [place] [address] 7t [place] [address] Care Team Providers Care Senior Business Process Analyst Name Role Phone Diamond Blake MD Primary Care Pro vider Reason for Visit * Reason Onset Date Comments Med Refill 07/07/2023 Encounter Details Date Type Department Care Team (Late st Contact Info) Description 07/07/[address] [facility] [address] [place] [address] Lay Avila MD [address] [place] [address] Social History Tobacco Use Types Packs/Day Years [...] AM EDT Office Visit [facility] MEDICINE [address] [place] [address] Wanda Hough CNM [address] [place] [address] 03/02/2025 10:30 AM EDT Office Visit [facility] MED[facility] [address] [place], [place] [phone] Diamond Blake MD [address] [place], [place] [phone] documented as of this encounter Visit Diagnoses Not on filedocumented in this encounter Additional Health Concerns Assessment Noted Time PHQ-9 Depression Total Score: 15 023 2:22 PM EST documented as of this encounter Care Teams Senior Business Process Analyst Relationship Specialty Start Date End Date Diamond Blake MD [address] [place], [place] [phone] PCP - General Internal Medicine 06/30/23 Zechariah Bradley Training CoordinatorStructures Mechanic 03/23/24 documented as of this encounter
--- OUTSIDE RECORDS SUMMARY | 2025-01-16 14:54 | XMS_ITS | Encounter Summary ---
Author Organization [employer] [facility] Address [address] [place] [address] 7t [place] [address] Care Team Providers Care Mail Clerk Name Role Phone Diamond Blake MD Primary Care Pro vider Reason for Visit * Reason Onset Date Comments Med Refill 07/07/2023 Encounter Details Date Type Department Care Team (Late Contact Info) Description 07/07/2023 Refill [facility] [address] [place] [address] Kailash Trevizo AGNP Severe chronic obstructive pulmonary [...] AM EDT Office Visit [facility] [address] [place], [place] [phone] Wanda Hough CNM [address] [place], [place] [phone] 03/02/2025 10:30 AM EDT Office Visit [facility] [address] [place] [address] Diamond Blake MD [address] [place], [place] [phone] documented as of this encounter Visit Diagnoses Diagnosis Severe chronic obstructive pulmonary disease (CMS/HCC) Chronic airway obstruction, not elsewhere classified Hypertension, unspecified type Hyperlipidemia, unspecified hyperlipidemia type documented in this encounter Additional Health Concerns Assessment Noted Time PHQ-9 Depression Total Score: 15 12/12/ 023 2:22 PM EST documented as of this encounter Care Teams Mail Clerk Relationship Specialty Start Date End Date Diamond Blake MD [address] [place], [place] [phone] PCP - General Internal Medicine 06/30/23 Zechariah Bradley Garage ManagerSandblast Operator 03/23/24 documented as of this encounter
--- OUTSIDE RECORDS SUMMARY | 2025-01-16 14:54 | XMS_ITS | Encounter Summary ---
Author Organization [employer] Address [address] [place] [address] 7t [place] [address] Care Team Providers Care Informatics Manager Name Role Phone Diamond Blake MD Primary Care Pro vider Reason for Visit * Reason Onset Date Comments Med Refill 07/07/2023 Encounter Details Date Type Department Care Team (Late st Contact Info) Description 07/07/2023 Refill [facility] MED & PEDS [address] [place] [address] Lay Avila MD [address] [place] [address] Social History Tobacco Use Types Packs/Day Years [...] Description 01/24/2025 9:15 AM EDT Office Visit [facility] MEDICINE [address] [place] [address] Wanda Hough CNM [address] [place] [address] 03/02/2025 10:30 AM EDT Office Visit [facility] MEDICINE [address] [place], [place] [phone] Diamond Blake MD [address] [place], [place] [phone] documented as of this encounter Visit Diagnoses Not on filedocumented in this encounter Additional Health Concerns Assessment Noted Time PHQ-9 Depression Total Score: 15 023 2:22 PM EST documented as of this encounter Care Teams Informatics Manager Relationship Specialty Start Date End Date Diamond Blake MD [address] [place], [place] [phone] PCP - General Internal Medicine 06/30/23 Zechariah Bradley Dry Cleaning Machine Operator HelperBat Person 03/23/24 documented as of this encounter
== END 2025-01-16 14:44 | disposition home or self-care (01) ==
LOC: HO.HUSH 13:12
PROVIDERS: PCP Internal Medicine; Visit Provider Nurse Practitioner Family
DX: N20.0 Calculus of kidney (principal); Z13.9 Encounter for screening, unspecified
CPT/HCPCS: 99213

== ENCOUNTER → 2025-01-16 13:11 | Outpatient (BNVA) | payer MEDICAID, SELFPAY | PROVIDERS: PCP Internal Medicine; Visit Provider Nurse Practitioner Family | DX: N20.0 Calculus of kidney (principal) | CPT/HCPCS: 81003; 99212 ==

== ENCOUNTER 2025-03-02 | Outpatient (REF) | payer MEDICAID, SELFPAY ==
[2025-03-02 13:59] LABS: Alanine Aminotransferase 18 U/L (0-31); Albumin Level 4.2 g/dL (3.5-5.0); Alkaline Phosphatase 104 U/L (39-117); Anion Gap 12 (12-20); Aspartate Amino Transferase 22 U/L (5-31); Bilirubin Total 0.3 mg/dL (0.0-1.0); Blood Urea Nitrogen 16 mg/dL (9-16); Calcium 9.6 mg/dL (8.4-10.2); Carbon Dioxide 31 mmol/L (22-29); Chloride 105 mmol/L (96-108); Estimated Glomerular Filt Rate > 60; Glucose Random 96 mg/dL (60-115); Magnesium 2.1 mg/dL (1.6-2.6); Sodium 144 mmol/L (135-145); Total Protein 7.1 g/dL (6.5-8.0)
--- OUTSIDE RECORDS SUMMARY | 2025-04-18 06:59 | XMS_ITS | Encounter Summary ---
Author Organization [employer] Address [address] [place] [address] [address] [place] [address] Care Team Providers Care Mattress Inspector Name Role Phone Diamond Blake MD Primary Care Pro vider Reason for Visit * Reason Onset Date Comments Med Refill 07/08/2023 Encounter Details Date Type Department Care Team (Late st Contact Info) Description 07/08/2023 Refill [facility] [address] [place] [address] Diamond Blake MD [address] [place] [address] Severe chronic obstructive pulmonary disease (CMS/HCC); Hypertension, [...] AM EDT Office Visit [facility] [address] [place] [address] Diamond Blake MD [address] [place], [place] [phone] documented as of this encounter Visit Diagnoses Diagnosis Severe chronic obstructive pulmonary disease (CMS/HCC) Chronic airway obstruction, not elsewhere classified Hypertension, unspecified type Hyperlipidemia, unspecified hyperlipidemia type Chronic pain of both knees Acute pain of left shoulder documented in this encounter Additional Health Concerns Assessment Noted Time PHQ-9 Depression Total Score: 15 023 2:22 PM EST documented as of this encounter Care Teams Mattress Inspector Relationship Specialty Start Date End Date Diamond Blake MD [address] [place] [address] PCP - General Internal Medicine 06/30/23 Zechariah Bradley Financial ManagerSign Maintenance 03/23/24 documented as of this encounter
== END 2025-03-02 00:01 | disposition home or self-care (01) ==
LOC: HO.LAB
PROVIDERS: PCP Student in an Organized Health Care Education/Training Program; Visit Provider Student in an Organized Health Care Education/Training Program
DX: E87.6 Hypokalemia (principal)
CPT/HCPCS: 36415; 80053; 83735

== ENCOUNTER 2025-03-02 11:57 | Outpatient (REF) | payer OTHER, SELFPAY ==
--- OUTSIDE RECORDS SUMMARY | 2025-03-02 12:58 | XMS_ITS | Encounter Summary ---
Author Organization [employer] Address [address] [place] [address] 7 [place] [address] Care Team Providers Care Colon Therapist Name Role Phone Diamond Blake MD Primary Care Pro vider Reason for Visit * Reason Onset Date Comments Med Refill 07/07/2023 Encounter Details Date Type Department Care Team (Late st Contact Info) Description 07/07/2023 Refill [facility] CHC MED & PEDS [address] [place] [address] Lay Avila MD [address] [place] [address] Social History Tobacco Use Types Packs/Day Years [...] Care Team (Late st Contact Info) Description 06/02/2025 10:00 AM EDT Office Visit [facility] MEDICINE [address] [place] [address] Diamond Blake MD [address] [place] [address] documented as of this encounter Visit Diagnoses Not on filedocumented in this encounter Additional Health Concerns Assessment Noted Time PHQ-9 Depression Total Score: 15 12/12/ 023 2:22 PM EST documented as of this encounter Care Teams Colon Therapist Relationship Specialty Start Date End Date Diamond Blake MD [address] [place] [address] PCP - General Internal Medicine 06/30/23 Zechariah Bradley Shipper ReceiverCommercial Leasing Manager 03/23/24 documented as of this encounter
--- OUTSIDE RECORDS SUMMARY | 2025-03-02 12:58 | XMS_ITS | Encounter Summary ---
Author Organization [employer] Address [address] [place] [address] Care Team Providers Care Molding Fitter Name Role Phone Diamond Blake MD Primary Care Pro vider Encounter Details Date Type Department Care Team (Latest Contact Info) Description 03/02/2025 Travel Social History Tobacco Use Types Packs/Day [...] is your housing situation today? I have rocehlle vidales 02/24/[address] you li ve. Do you have problems with any of the following? None of the above 02/24/2025 Food Insecurity Answer Date Recorded Within the past 12 months, y ou worried that your food would run out before you got money to buy more: Never True 02/24/2025 Within the past 12 months,th e food you bought just didn't last and you didn't have enough money to get more: Never True 06/2025 Transportation Answer Date Recorded In the past 12 months, has l ack of transportation kept you from medical appts, meetings, work or from getting things needed for daily living? No 02/24/2025 Utilities Answer Date Recorded In the past 12 months, has t he electric, gas, oil or water company threatened to shut off services in your home? No 02/24/2025 Depression Answer Date Recorded Patient Health Questionnaire-2 Score 3 08/30/2024 Internet Access Answer Date Recorded Internet Access Q1 Yes 02/24/2025 Internet Access Q2 Not on file 02/24/2025 Comments No Sex and Gender Information Value [...] Description 06/02/2025 10:00 AM EDT Office Visit [facility] MEDICINE [address] [place] [address] Diamond Blake MD [address] [place] [address] documented as of this encounter Visit Diagnoses Not on filedocumented in this encounter Additional Health Concerns Assessment Noted Time PHQ-9 Depression Total Score: 14 024 9:42 AM EDT documented as of this encounter Care Teams Molding Fitter Relationship Specialty Start Date End Date Diamond Blake MD [address] [place] [id number] PCP - General Internal Medicine 06/30/23 Zechariah Bradley Lithograph PrinterGarland Maker 03/23/24 documented as of this encounter
--- OUTSIDE RECORDS SUMMARY | 2025-03-02 12:58 | XMS_ITS | Encounter Summary ---
Author Organization [employer] Address [address] [place] [address] 7 [place] [address] Care Team Providers Care Field Auto Appraiser Name Role Phone Diamond Blake MD Primary Care Pro vider Reason for Visit * Reason Onset Date Comments Med Refill 07/08/2023 Encounter Details Date Type Department Care Team (Late st Contact Info) Description 07/08/2023 Refill [facility] MEDICINE [address] [place] [address] Diamond Blake MD [address] [place] [address] Severe chronic obstructive pulmonary disease (CMS/HCC); Hypertension, [...] Description 06/02/2025 10:00 AM EDT Office Visit [facility] MEDICINE [address] [place] [address] Diamond Blake MD [address] [place], [place] [phone] documented as of this encounter Visit Diagnoses Diagnosis Severe chronic obstructive pulmonary disease (CMS/HCC) Chronic airway obstruction, not elsewhere classified Hypertension, unspecified type Hyperlipidemia, unspecified hyperlipidemia type Chronic pain of both knees Acute pain of left shoulder documented in this encounter Additional Health Concerns Assessment Noted Time PHQ-9 Depression Total Score: 15 023 2:22 PM EST documented as of this encounter Care Teams Field Auto Appraiser Relationship Specialty Start Date End Date Diamond Blake MD [address] [place] [address] PCP - General Internal Medicine 06/30/23 Zechariah Bradley Railroad Supervisor Of EnginesAssistant Coach 03/23/24 documented as of this encounter
--- OUTSIDE RECORDS SUMMARY | 2025-03-02 12:58 | XMS_ITS | Encounter Summary ---
Author Organization [employer] Address [address] [place] [address] 7 [place] [address] Care Team Providers Care Guide Foreign Tour Name Role Phone Diamond Blake MD Primary Care Pro vider Reason for Visit * Reason Comments Med Refill Encounter Details Date Type Department Care Team (Late st Contact Info) Description 07/06/2023 Refill [facility] MEDICINE [address] [place] [address] Kailash Trevizo AGNP Hypertension, unspecified type Social [...] Description 06/02/2025 10:00 AM EDT Office Visit [facility] MEDICINE [address] [place] [address] Diamond Blake MD [address] [place] [address] documented as of this encounter Visit Diagnoses Diagnosis Hypertension, unspecified type documented in this encounter Additional Health Concerns Assessment Noted Time PHQ-9 Depression Total Score: 15 12/12/ 023 2:22 PM EST documented as of this encounter Care Teams Guide Foreign Tour Relationship Specialty Start Date End Date Diamond Blake MD [address] [place] [id number] PCP - General Internal Medicine 06/30/23 Zechariah Bradley Customs ExaminerMolasses Feed Mixer 03/23/24 documented as of this encounter
--- OUTSIDE RECORDS SUMMARY | 2025-03-02 12:58 | XMS_ITS | Encounter Summary ---
Author Organization [employer] Address [address] [place] [address] 7 [place] [address] Care Team Providers Care Underwear Welter Name Role Phone Kailash Trevizo Primary Care Provider Unavail able Diamond Blake MD Primary Care Pro vider Encounter Details Date Type Department Care Team (Late st Contact Info) Description 06/02/2023 Abstract [facility] ADULT DENTAL [address] [place] [address] Mervin Davisaris [address] [place] [address] Social History Tobacco Use Types Packs/Day Years [...] Description 06/02/2025 10:00 AM EDT Office Visit [facility] MEDICINE [address] [place] [address] Diamond Blake MD [address] [place] [address] documented as of this encounter Visit Diagnoses Not on filedocumented in this encounter Additional Health Concerns Assessment Noted Time PHQ-9 Depression Total Score: 15 12/12/ 023 2:22 PM EST documented as of this encounter Care Teams Underwear Welter Relationship Specialty Start Date End Date Kailash Trevizo AGNP PCP - General Family Medicine 11/13/22 06/29/23 Diamond Blake MD [address] [place] [address] PCP - General Internal Medicine 06/30/23 Zechariah Bradley Clinical Unit EducatorFigurine Maker 03/23/24 documented as of this encounter
--- OUTSIDE RECORDS SUMMARY | 2025-03-02 12:58 | XMS_ITS | Encounter Summary ---
Author Organization [employer] Address [address] [place] [address] Care Team Providers Care Skin Peeling Machine Operator Name Role Phone Diamond Blake MD Primary Care Pro vider Reason for Visit * Reason Onset Date Comments Med Refill 09/28/2023 Encounter Details Date Type Department Care Team (Late st Contact Info) Description 09/28/[address] [facility] CHC MED & PEDS [address] [place] [address] Zaida Christy MD [address] [place] [address] Hypertension, unspecified type Social History Tobacco Use [...] Description 06/02/2025 10:00 AM EDT Office Visit [facility] MEDICINE [address] [place] [address] Diamond Blake MD [address] [place] [address] documented as of this encounter Visit Diagnoses Diagnosis Hypertension, unspecified type documented in this encounter Additional Health Concerns Assessment Noted Time PHQ-9 Depression Total Score: 15 023 2:22 PM EST documented as of this encounter Care Teams Skin Peeling Machine Operator Relationship Specialty Start Date End Date Diamond Blake MD [address] [place] [id number] PCP - General Internal Medicine 06/30/23 Zechariah Bradley Application Security DeveloperElectronic Design Engineer 03/23/24 documented as of this encounter
--- OUTSIDE RECORDS SUMMARY | 2025-03-02 12:58 | XMS_ITS | Clinical Summary ---
Author Organization [employer] Address [address] [facility] 7[address] [place] [address] Care Team Providers Care Apartment Maintenance Manager Name Role Phone Diamond Blake MD [...] EVERY MORNING 90 tablet 1 025 Active ammonium lactate (Amlactin) 12 % [...] BEFORE BREAKFAST 90 tablet 1 025 Active metFORMIN XR (Glucophage-XR) 500 MG 24 hr tablet TAKE 1 TABLET BY MOUTH EVERY DAY IN THE EVENING WITH FOOD 90 tablet 025 Active Tirzepatide 5 MG/0.5ML solution auto-injectorInd ications:Obesity (BMI 30-39.9) Inject 5 mg under the skin 1 (one) time per week. 0.5 mL 2 025 Active memantine (Namenda) 5 MG tablet Take 1 tablet (5 mg) by mouth 2 times daily. 60 tablet 2 025 2025 Active magnesium oxide (Mag-Ox) 400 (240 Mg) MG tablet Active donepezil (Aricept) 10 MG tablet TAKE 1 TABLET BY MOUTH AT BEDTIME 90 tablet 025 2024 Discontinued Tirzepatide-Weig ht Management (Zepbound) 7.5 MG/0.5ML solution auto-injector Inject 0.5 mL (7.5 mg) as directed 1 (one) time per week. INJECT ONE PEN (=7.5 MG) SUBCUTANEOUSLY ONCE A WEEK 2 mL 025 2024 Discontinued( Other) donepezil (Aricept) 10 MG tablet TAKE 1 TABLET BY MOUTH DAILY AT BEDTIME 90 tablet 025 2024 Discontinued( Other) Active Problems Problem Noted Date Diagnosed Date [...] in her new apartment. We had the [facility] department come up and talk with her. They recommended a referral to care management. Referral placed. PHQ: 0 STI: reports no partner at this time. Pap: Last memory was in [place], approximately 5 years ago. Substance use: Denies [...] shortly cant remember date. Eye exam: Sees [facility] eye care. Dental home: Had [facility] dental appointment that she missed. She [...] ?? LDL-C is now calculated using the Eb-Kaur calculation, which is a validated novel method providing better accuracy than the Friedewald equation in the estimation of LDL-C. Eb SS et al. [place]. 2013;310(19): 2676-6756 (http://education.PlanetEye.Amerpages/faq/XVZ505) Chol/HDLC Ratio <5.0 (calc) 4.1 3.8 4.0 [...] see if there was an error. The medical laboratory assistant was able to find the lab orders. I discussed with patient if there was an issue with her blood work someone would contact her to set up and appointment. Osteopenia 04/17/2017 Vitamin D deficiency 04/17/2017 Resolved Problems Problem Noted Date Diagnosed Date Resolved Date Black tongue 08/18/2023 10/09/2023 Anemia 04/17/2017 08/18/2023 Encounters Date Type Department Care Team Description 03/02/2025 10:30 AM EDT Office Visit [facility] [address] [place] [phone] Diamond Blake MD Prediabetes (Primary Dx); Obesity (BMI 30-39.9); Droopy eyelid, bilateral; Hypokalemia 03/02/2025 Travel 03/01/2025 Telephone [facility] [address] [place] [phone] Diamond Blake MD chartprep 02/24/2025 Patient Outreach [facility] [address] [place] [address] Diamond Blake MD Pre-visit Planning (SDOH negative, Tobacco screening negative. ) 02/09/2025 Telephone [facility] [address] [place] [phone] Diamond Blake MD 02/07/2025 Refill [facility] [address] [place] [phone] Darby Love MD 01/31/2025 Telephone [facility] [address] [place] [phone] Diamond Blake MD Prior Auth Prescription 01/30/2025 Refill [facility] [address] [place] [phone] Diamond Blake MD 01/24/2025 Telephone [facility] [address] [place] [phone] Alyce Gallo CNM 01/15/2025 Refill [facility] [address] [place] [address] Pradeep Deluna MD 01/09/2025 Orders Only GENERIC EXTERNAL DATA DEPARTMENT Provider, Generic External Data 12/30/2024 Population Health Risk Score Community Care [facility] ([facility]) Department [address] [place] [address] [phone] Provider, Population Health Generic 12/30/2024 Telephone [facility] [address] [place] [address] Diamond Blake MD May recall 12/29/2024 Orders Only GENERIC EXTERNAL DATA DEPARTMENT Provider, Generic External Data 12/28/2024 Refill [facility] [address] [facility] [place] [address] Diamond Blake MD 12/21/2024 Refill [facility] [address] [facility] [place] [address] Diamond Blake MD Hypothyroidism, unspecified type 12/20/2024 Refill [facility] [address] [place] [address] Diamond Blake MD Hyperlipidemia, unspecified hyperlipidemia type from Last 3 Months Immunizations Immunization Administration Dates Next Due Influenza injectable quadriv [...] housing situation today? I have rochelle vidales 02/24/[address] you [...] Sign Reading Time Taken Comments Blood Pressure 123/64 03/02/2025 10:35 AM EDT Pulse 62 03/02/2025 10:35 AM EDT Temperature 36.3 ??C (97.4 ??F) 03/02/2025 10:35 AM E DT Respiratory Rate 20 03/02/2025 10:35 AM EDT Oxygen Saturation 97% 03/02/2025 10:35 AM EDT Inhaled Oxygen Concentration - - Weight 89.4 kg (197 lb 3.2 oz) 03/02/2025 10:35 AM EDT Height 157.5 cm (5' 2 ) 03/02/2025 10:35 AM EDT Body Mass Index 36.07 03/02/2025 10:35 AM EDT Plan of Treatment Upcoming Encounters Date Type Department Care Team (Late st Contact Info) Description 06/02/2025 10:00 AM EDT Office Visit [facility] [address] [place] [address] Diamond Blake MD [address] [place], [place] [phone] Health Maintenance Due Date Last Done Comments CT Colonography 1960 FIT DNA/Cologuard 1960 FIT 1960 FOBT 1960 Sigmoidoscopy 1960 Mammogram 01/04/2025 01/05/2024, 12/17, 12/27/2021, Additional history exists Dental Oral Exam 01/28/2025 07/29/2024, , 03/30/2019, Additional history exists Dental Prophylaxis 01/28/2025 07/29/2024, 05/01/2023 COVID-19 Vaccine ( season) 2025 08/30/2024, 08/02/2024, 12/30/2023, Additional history exists Colonoscopy 07/21/2025 07/21/2023 Colorectal Cancer Screening 07/21/2025 Dental X-Ray: Bitewings 07/30/2025 07/29/20 24, 05/01/2023, 12/10/2017 Alcohol/Substance Use Screening 08/30/2025 08/30/2024 Depression Screening 08/30/2025 08/30/2024, 04/27/20 24 Diabetes: Hemoglobin A1C 09/05/2025 024, 02/19/2024, 08/28/2023, Additional history exists SDOH Screening 03/02/2026 03/02/2025 Tobacco Screening 03/02/2026 03/02/2025 Dental X-Ray: Full Mouth 05/02/2026 023, 12/10/2017, 11/17/2017 DTaP/Tdap/Td Vaccines (2 - Td or Tdap) 04/17/2027 04/17/2017 Cervical Cancer Screening 01/27/2029 HPV/Cotest 01/27/2029 01/28/2024 Pap Smear 01/27/2029 01/28/2024 Lipid Panel 09/05/2029 09/05/2024, 05/0 12/2023, 08/28/2023, Additional history exists Zoster Vaccines Completed 05/16/2022, 02/17/2022 Pneumococcal Vaccine: 50+ Years Completed 08/18/2023 Hepatitis C Screening Completed 08/28/2023, 023 RSV Patients and Patients Aged 60 years or older Completed 12/30/2023 Influenza Vaccine Completed 08/30/2024, , 08/18/2023, Additional [...] patient's age to complete this topic Meningococcal B Vaccine Aged Out No l onger eligible based on patient's age to complete [...] Blood Count 5.0 4.8 - 10.8 X10*3/uL [facility] Red Blood Count 4.22 4.20 - 5.50 X10*6/uL [facility] Hemoglobin 12.2 12.0 - 16.0 g/dl [facility] Hematocrit 35.9(L) 37.0 - 47.0 % [facility] Mean Corpuscular Volume 85.1 80.0 - 98.0 fL [facility] Mean Corpuscular Hemoglobin 28.9 27.0 - 33.0 pg [facility] Mean Corpuscular HGB Conc 34.0 31.0 - 35.0 g/dl [facility] Red Cell Distribution Width 12.2 11.0 - 16.0 % [facility] Platelet Count 393 160 - 400 X10*3/uL [facility] Mean Platelet Volume 10.2 9.4 - 12.3 fL [facility] Neutrophils Percent Auto 49.7 45 - 73 % [facility] Imm Gran Pct Auto 0.2 0.0 - 0.4 % [facility] Lymphocytes Percent Auto 40.9(H) 20 - 40 % [facility] Monocytes Percent Auto 5.0 2 - 11 % [facility] Eosinophils Percent Auto 3.2 0 - 4 % [facility] Basophils Percent Auto 1.0 0 - 2 % [facility] NRBC Pct Auto 0.0 0.0 - 0.2 /100WBC [facility] Neutrophils Absolute Auto 2.5 2.0 - 8.3 x10*3/uL [facility] Imm Gran Abs Auto 0.01 0.00 - 0.03 X10*3/uL [facility] Lymphocytes Absolute Auto 2.0 1.2 - 4.9 X10*3/uL [facility] Monocytes Absolute Auto 0.3 0.1 - 1.2 X10*3/uL [facility] Eosinophils Absolute Auto 0.2 0.0 - 0.4 X10*3/uL [facility] Basophils Absolute Auto 0.1 0.0 - 0.2 X10*3/uL [facility] NRBC Abs Auto 0.000 0.0 - 0.012 X10*3/uL [facility] 01/09/2025 9:08 AM EDT 01/09/2025 9:08 AM EDT us Generic External Data Provider LAB BLOOD ORDERAB LES Final Result [facility] [address] [place] [address] [phone] * Sed Rate by Frederick Marshall (01/09/2025 9:08 AM EDT) Erythrocyte Sedimentation Rate 20 0 - 20 MM/HR [facility] Comment:Patients with polycy themia and many hemoglobin abnormalitiesmay have depressed sed rates whereas patients with anemiamay have elevated sed rates. 01/09/2025 9:08 AM EDT 01/09/2025 9:08 AM EDT Generic External Data Provider LAB BLOOD ORDERAB LES Final Result Performing Organization Address [facility]/ZIP Co de Phone Number [facility] [address] [place] [phone] * (ABNORMAL) Immunoglobulin E (01/09/2025 9:08 AM EDT) Immunoglobulin E 295(A) <DO=152 kU/L [facility] Comment:THIS TEST WAS PERFOR MED AT:[facility] [place] [id number] CHANG MD 01/09/2025 9:08 AM EDT 01/09/2025 9:08 AM EDT Generic External Data Provider LAB BLOOD ORDERAB LES Final Result Performing Organization Address [facility] Co de Phone Number [facility] [address] [place] [phone] * (ABNORMAL) Basic Metabolic Panel (01/09/2025 9:08 AM EDT) Sodium 143 135 - 145 mmol/L [facility] Potassium 3.1(L) 3.3 - 5.1 mmol/L [facility] Chloride 104 96 - 108 mmol/L [facility] Carbon Dioxide 32(H) 22 - 29 mmol/L [facility] Anion Gap 10(L) 12 - 20 [facility] Urea Nitrogen (BUN) 11 9 - 16 mg/dL [facility] Creatinine, Serum 0.65 0.5 - 1.4 mg/dL [facility] Estimated Glomerular Filt Rate >60 [facility] Comment:Chronic Kidney Disea se: Estimated GFR < 60 mL/min/1.83q3Rxebsv Kidney Disease: Estimated GFR < 15 mL/min/1.73m2 Glucose 88 60 - 115 mg/dL [facility] Calcium 9.5 8.4 - 10.2 mg/dL [facility] 01/09/2025 9:08 AM EDT 01/09/2025 9:08 AM EDT us Generic External Data Provider LAB BLOOD ORDERAB LES Final Result Performing Organization Address City/[facility]/ZIP Co de Phone Number [facility] [address] [place] [phone] * TSH (12/29/2024 2:18 PM EDT) Thyroid Stimulating Hormone 1.20 0.32 - 4.0 uIU/mL [facility] Comment:TSH 3rd Generation ( [facility]) 12/29/2024 2:18 PM EDT 12/29/2024 2:18 PM EDT us Generic External Data Provider LAB BLOOD ORDERAB LES Final Result Performing Organization Address City/[facility]/ZIP Co de Phone Number [facility] [address] [place] [phone] * T4, Free (12/29/2024 2:18 PM EDT) Free T4 (Free Thyroxine) 1.31 0.71 - 1.85 ng/dL [facility] 12/29/2024 2:18 PM EDT 12/29/2024 2:18 PM EDT us Generic External Data Provider LAB BLOOD ORDERAB LES Final Result Performing Organization Address City/[facility] Co de Phone Number [facility] [address] [place] [phone] * Hemoglobin A1c (09/05/2024 8:25 AM EST) Hemoglobin A1c 5.7 <6.0 % [facility] Comment:Hemoglobin A1C Refer ence Range Adults: 4.8 - 6.0 % Non diabetic: < 6.0 % Goal: < 7.0 %Additional Action Suggested: > 8.0 %Note: Hemoglobin A1c results are invalid for patients with abnormal amounts of HbF. Blood transfusions may impact the HbA1c concentration in the patient sample. Estimated Average Glucose 117 mg/dL [facility] Comment:eAG = Estimated ave rage glucose which is %A1C expressed asaverage glucose, using the formula of the K6J-HuuzoccSfbxqlw Glucose study (ADAG), Diabetes Care, Vol.31,#8,May. 2007 Blood Venous blood specimen / Unknown 09/05/2024 8:25 AM EST 09/05/2024 11:36 AM EST us Diamond Barry MD LAB BLOOD ORDERAB LES Final Result [facility] [address] [place] [phone] * Lipid Panel, Standard (09/05/2024 8:25 AM EST) Triglycerides 134 <150 mg/dL [facility] Comment:Desirable Triglyceri de: less than 150 mg/dLBorderline High Triglyceride 150-199 mg/dLHigh Triglyceride: 200-499 mg/dLVery High Triglyceride: greater than or equal to 5OO mg/dL Cholesterol 152 <200 mg/dL [facility] Comment:Desirable Cholestero l: less than 200 mg/dLBorderline High Cholesterol: 200-239 mg/dLHigh Cholesterol: greater than 239 mg/dL LDL Cholesterol Calculated 70 <100 mg/dL [facility] Comment:Desirable LDL: less than 100 mg/dLNear Optimal/Above Optimal LDL: 110- 129 mg/dLBorderline High LDL: 130-159 mg/dLHigh LDL: 160-189 mg/dLVery High LDL: greater than or equal to 190 mg/dL HDL Cholesterol 56 >40 mg/dL [facility] Comment:Desirable HDL: great er than 40 mg/dL Note: This HDL assay may give artificially low results in patients with liver disease. Blood Venous blood specimen / Unknown 09/05/2024 8:25 AM EST 09/05/2024 11:36 AM EST us Diamond Barry MD LAB BLOOD ORDERAB LES Final Result Performing Organization Address [facility]/ZIP Co de Phone Number [facility] [address] [place] [phone] [phone] * HPV mRNA E6/E7 w/Reflex to HPV Genotypes 16, 18/45 (01/28/2024 11:09 AM EDT) HPV nRNA E6/E7 Not Detected Not Detected [facility] Comment:Methodology: Transcr iption-Mediated AmplificationThis assay detects E6/E7 viral messenger RNA (mRNA) from 14high-risk HPV types (16,18,31,33,35,39,45,51,52,56,58,59,66,68).Cervical sources are required for HPV testing.If a vaginal source from a patient who has had atotal hysterectomy with removal of cervix wassubmitted, please contact the testing laboratoryfor alternative testing options.For additional information, please refer tohttp://education.Clipp[employer] Intl/faq/ZSR628w9(This link if provided for information/educational purposes only.)THIS TEST WAS PERFORMED AT:[facility] [place] [phone] CHANG MD HPV mRNA E6/E7 TNP [facility] HPV 16 RNA [facility] HPV 18/45 RNA [facility] 01/28/2024 11:0 9 AM EDT 02/02/2024 12:00 PM EDT Alyce Gallo CNM LAB CYTOLOGY ORDERABLES F inal Result [facility] [address] [place] [phone] [phone] * Pap Smear (01/28/2024 11:09 AM EDT) Swab Cervix uteri structure / Unknown 01/28/2024 11:09 AM EDT 02/02/2024 12:00 PM EDT [facility] - 02/17/2024 6:59 AM EDT ----- ------- Name: Diamond Grider ? Age/Sex: 63/F ? : 1960 Unit#: [id number] ?? Attend Dr: ALYCE GALLO CNM ?Re01/28/24 ?Status: DEP REF ? Location: HO.HHCLNP ? Disch: ? ----- ------- SPEC : [id number] ? RECD: 02/02/24-1200 ? STATUS: ??SOUT ? REQ NUM: [id number] ? SELENE: 01/28/24-1109 ? SUBM DR: ALYCE GALLO CNM ? ENTERED: ??02/02/24-4 ?SP TYPE: Pap Smr ?OTHR CAIN: ? ORDERED: ??Pap Smear ? Interpretation ?? Satisfactory for evaluation. ?? Atrophic. ?? Negative for intraepithelial lesion or malignancy. ?HPV mRNA E6/E7: ?NOT DETECTED ? This assay detects E6/E7 viral messenger RNA (mRNA) from 14 high-risk HPV types (16, 18, ?? 31, 33, 35, 39, 45, 51, 52, 56, 58, 59, 66, 68) ?? HPV testing performed by [facility], [place], [place]. ??See reference laboratory ?? portion of the EMR for entire report. ?Clinical Information LMP: Postmenopausal Previous PAP test: Unknown date/findings ? Material Received ?? ThinPrep-Vaginal/Cervical ----- ------- Signed (signature on file) RIANNA Han ([facility]) 02/17/24 0659 ? ----- ------- ? END OF REPORT ? us Alyce Gallo CNM LAB CYTOLOGY ORDERABLES F inal Result Performing Organization Address [facility]/State/ZIP Co de Phone Number [facility] [address] [place] [address] [phone] * BI Mammogram Screening Tomosynthesis Bilateral (01/05/2024 10:40 AM EDT) Anatomical Region Laterality Modality Breast Bilateral Mammography 01/05/2024 10:4 0 AM EDT Narrative 01/27/2024 12:19 AM EDT ? [facility] ? [address] ?[place] [address] ? Mammography Report ? Signed ? Patient: Siddharth York,Diamond Broussard ?MR#: ?? [id number] ? : 1960 ?Acct:[id number] ? Age/Sex: 63 / F ?ADM Date: 01/04/ ? Loc: HO.MAMMO ? Attending Dr: Fay Weinstein MD ? Ordering Physician: FAY WEINSTEIN MD ?Results: 1Neg ?? ative ? Date of Service: 01/04/ ?Follow Up: 1 Year From Orig ?? inal Mammogram ? Procedure(s): MM tomosynthesis screening BI ?? Accession Number(s): [id number] ? cc: FAY WEINSTEIN MD; Diamond Blake [...] by Bing Amador MD in OV> ? /08/115 ? DD/ 1040 ? TD/TT: ? Conservation Enforcement Officer: ? Procedure Note Torey, Image - 01/27/2024 [facility] [address] [place] [address] Mammography Report Signed Patient: Siddharth YorkDiamond EMR#: [id number] : 1960Acct:[id number] Age/Sex: 63 / FADM Date: 01/05/24 Loc: HO.MAMMO Attending Dr: Fay Weinstein MD Ordering Physician: FAY WEINSTEIN MDResults: 1Neg ative Date of Service: 01/05/24Follow Up: 1 Year From Orig inal Mammogram Procedure(s): MM tomosynthesis screening BI Accession Number(s): [id number] cc: FAY WEINSTEIN MD; Diamond Blake MD [...] in OV> 01/27/24 0015 DD/ 1040 TD/TT: Conservation Enforcement Officer: us [facility] External Provider IMG BI PROCEDURES Final Result * Hepatitis C Antibody with Reflex to HCV, RNA, Quantitative, Real-Time PCR (08/28/2023 9:03 AM EST) Hepatitis C Antibody Nonreactive Nonreactive [facility] Comment:Antibodies to HCV no t detected; does not exclude early acuteHCV infection. Blood Venous blood specimen / Unknown 08/28/2023 9:03 AM EST 08/28/2023 11:14 AM EST us Diamond Barry MD LAB BLOOD ORDERAB LES Final Result [facility] [address] [place] [phone] * (ABNORMAL) Colonoscopy (07/21/2023) Colonoscopy Abnormal( [...] Most Recently Relevant to Health Maintenance Insurance [facility] ALF OPTIONS (O D-SNP) [place] [id number] [place] AD[place] Care Teams Apartment Maintenance Manager Relationship Specialty Start Date End Date Diamond Blake MD [address] [place] [address] PCP - General Internal Medicine 06/30/23 Zechariah Bradley Manager InternationalMachine Operator Hay Stacker 03/23/24
--- OUTSIDE RECORDS SUMMARY | 2025-03-02 12:58 | XMS_ITS | Encounter Summary ---
Author Organization [employer] Address [address] [place] [address] Care Team Providers Care Faculty I On Call Medical Assistant Name Role Phone Diamond Blake MD Primary Care Pro vider Reason for Visit * Reason Comments Med Refill Encounter Details Date Type Department Care Team ([facility] st Contact Info) Description 10/24/2024 Refill [facility] [address] [place] [address] Diamond Blake MD [address] [place] [address] Social History Tobacco Use Types Packs/Day Years [...] Description 06/02/2025 10:00 AM EDT Office Visit [facility] [address] [place] [phone] Diamond Blake MD [address] [place] [phone] documented as of this encounter Visit Diagnoses Not on filedocumented in this encounter Additional Health Concerns Assessment Noted Time PHQ-9 Depression Total Score: 14 024 9:42 AM EDT documented as of this encounter Care Teams Faculty I On Call Medical Assistant Relationship Specialty Start Date End Date Diamond Blake MD [address] [place] [phone] PCP - General Internal Medicine 06/30/23 Zechariah Bradley Basket Hand BraiderShoe Lay Out Planner 03/23/24 documented as of this encounter
--- OUTSIDE RECORDS SUMMARY | 2025-03-02 12:58 | XMS_ITS | Encounter Summary ---
Author Organization [employer] Address [address] [facility] 7t [place] [address] Care Team Providers Care Assistant Mechanic Name Role Phone Diamond Blake MD Primary Care Pro vider Reason for Visit * Reason Comments Med Refill Encounter Details Date Type Department Care Team ([facility] st Contact Info) Description 10/25/2024 Refill [facility] [address] [place] [address] Diamond Blake MD [address] [place] [address] Hypertension, unspecified type Social History Tobacco Use [...] Description 06/02/2025 10:00 AM EDT Office Visit [facility] MEDICINE [address] [place] [address] Diamond Blake MD [address] [place] [address] documented as of this encounter Visit Diagnoses Diagnosis Hypertension, unspecified type documented in this encounter Additional Health Concerns Assessment Noted Time PHQ-9 Depression Total Score: 14 024 9:42 AM EDT documented as of this encounter Care Teams Assistant Mechanic Relationship Specialty Start Date End Date Diamond Blake MD [address] [place] [address] PCP - General Internal Medicine 06/30/23 Zechariah Bradley Grab DriverBuilding Construction Ironworker 03/23/24 documented as of this encounter
--- OUTSIDE RECORDS SUMMARY | 2025-03-02 12:58 | XMS_ITS | Encounter Summary ---
Author Organization [employer] Address [address] [place] [address] 7 [place] [address] Care Team Providers Care Hospitality Manager Name Role Phone Diamond Blake MD Primary Care Pro vider Reason for Visit * Reason Onset Date Comments Med Refill 07/07/2023 Encounter Details Date Type Department Care Team (Late st Contact Info) Description 07/07/2023 Refill [facility] [address] [place] [address] Nava Moss MD 505 [place] [address] Severe chronic obstructive pulmonary disease (CMS/HCC) Social [...] 10:00 AM EDT Office Visit [facility] [address] [place] [address] Diamond Blake MD [address] [place], [place] [phone] documented as of this encounter Visit Diagnoses Diagnosis Severe chronic obstructive pulmonary disease (CMS/HCC) Chronic airway obstruction, not elsewhere classified documented in this encounter Additional Health Concerns Assessment Noted Time PHQ-9 Depression Total Score: 15 12/12/ 023 2:22 PM EST documented as of this encounter Care Teams Hospitality Manager Relationship Specialty Start Date End Date Diamond Blake MD [address] [place] [address] PCP - General Internal Medicine 06/30/23 Zechariah Bradley Shaft SinkerPatent Prosecution Paralegal 03/23/24 documented as of this encounter
--- OUTSIDE RECORDS SUMMARY | 2025-03-02 12:58 | XMS_ITS | Encounter Summary ---
Author Organization [employer] Address [address] [facility] 7t [place] [address] Care Team Providers Care Credit Historian Name Role Phone Diamond Blake MD Primary Care Pro vider Reason for Visit * Reason Comments Med Refill Encounter Details Date Type Department Care Team ([facility] st Contact Info) Description 01/29/2024 Refill [facility] 230 [place] [address] Diamond Blake MD 230 [place] [address] Social History Tobacco Use Types Packs/Day Years [...] Description 06/02/2025 10:00 AM EDT Office Visit [facility] MEDICINE [address] [place] [address] Diamond Blake MD [address] [place] [address] documented as of this encounter Visit Diagnoses Not on filedocumented in this encounter Additional Health Concerns Assessment Noted Time PHQ-9 Depression Total Score: 12 023 11:15 AM EST documented as of this encounter Care Teams Credit Historian Relationship Specialty Start Date End Date Diamond lBake MD [address] [place] [address] PCP - General Internal Medicine 06/30/23 Zechariah Bradley Taper/FinisherDirector Sterile Processing 03/23/24 documented as of this encounter
--- OUTSIDE RECORDS SUMMARY | 2025-03-02 12:58 | XMS_ITS | Encounter Summary ---
Author Organization [email or web address] Address [address] [facility] 7 [place] [address] Care Team Providers Care Vamp Strap Ironer Name Role Phone Diamond Blake MD Primary Care Pro vider Reason for Visit * Reason Onset Date Comments chartprep 03/01/2025 Encounter Details Date Type Department Care Team ([facility] st Contact Info) Description 03/01/2025 Telephone [facility] MEDICINE [address] [place] [address] Diamond Blake MD [address] [place] [address] chartprep Social History Tobacco Use Types Packs/Day Years [...] encounter Miscellaneous Notes * Telephone Encounter - Amanda Lau [place] - 03/01/2025 9:54 AM EDT ..Chart Prep Labs: not applicable Images: not applicable Vaccines due: Covid Due Referrals: Not Applicable Screenings: Colonoscopy and Mammogram Overdue care gaps: Disability and Oral Health documented in this encounter Plan of Treatment Upcoming Encounters Date Type Department Care Team (Late st Contact Info) Description 06/02/2025 10:00 AM EDT Office Visit [facility] MEDICINE [address] [place] [address] Diamond Blake MD [address] [place] [address] documented as of this encounter Visit Diagnoses Not on filedocumented in this encounter Additional Health Concerns Assessment Noted Time PHQ-9 Depression Total Score: 14 024 9:42 AM EDT documented as of this encounter Care Teams Vamp Strap Ironer Relationship Specialty Start Date End Date Diamond Blake MD [address] [place] [phone] PCP - General Internal Medicine 06/30/23 Zechariah Bradley Electronic Game DeveloperShoe Stainer 03/23/24 documented as of this encounter
--- OUTSIDE RECORDS SUMMARY | 2025-03-02 12:58 | XMS_ITS | Encounter Summary ---
Author Organization [employer] Address [address] [place] [address] 7 [place] [address] Care Team Providers Care Regional Climate Change Analyst Name Role Phone Diamond Blake MD Primary Care Pro vider Reason for Visit * Reason Onset Date Comments Med Refill 07/07/2023 Encounter Details Date Type Department Care Team (Late st Contact Info) Description 07/07/2023 Refill [facility] MED & PEDS [address] [place] [address] Lay Avila MD 505 [place] [address] Social History Tobacco Use Types Packs/Day Years [...] 06/02/2025 10:00 AM EDT Office Visit [facility] MEDICINE 230 [place] [address] Diamond Blake MD [address] [place] [address] documented as of this encounter Visit Diagnoses Not on filedocumented in this encounter Additional Health Concerns Assessment Noted Time PHQ-9 Depression Total Score: 15 12/12/ 023 2:22 PM EST documented as of this encounter Care Teams Regional Climate Change Analyst Relationship Specialty Start Date End Date Diamond Blake MD [address] [place] [address] PCP - General Internal Medicine 06/30/23 Zechariah Bradley Defensive Secondary CoachCatheterization Laboratory Technician 03/23/24 documented as of this encounter
--- OUTSIDE RECORDS SUMMARY | 2025-03-02 12:58 | XMS_ITS | Encounter Summary ---
Author Organization [employer] Address [address] [place] [address] 7 [place] [address] Care Team Providers Care National Stormwater Leader Name Role Phone Diamond Blake MD Primary Care Pro vider Reason for Visit * Reason Onset Date Comments Med Refill 07/07/2023 Encounter Details Date Type Department Care Team (Late st Contact Info) Description 07/07/2023 Refill [facility] MEDICINE [address] [place] [address] Kailash Trevizo AGNP Severe chronic obstructive pulmonary [...] Description 06/02/2025 10:00 AM EDT Office Visit [facility] MEDICINE [address] [place] [address] Diamond Blake MD [address] [place] [address] documented as of this encounter Visit Diagnoses Diagnosis Severe chronic obstructive pulmonary disease (CMS/HCC) Chronic airway obstruction, not elsewhere classified Hypertension, unspecified type Hyperlipidemia, unspecified hyperlipidemia type documented in this encounter Additional Health Concerns Assessment Noted Time PHQ-9 Depression Total Score: 15 023 2:22 PM EST documented as of this encounter Care Teams National Stormwater Leader Relationship Specialty Start Date End Date Diamond Blake MD [address] [place] [address] PCP - General Internal Medicine 06/30/23 Zechariah Bradley Grain Commodity ManagerCocoa Room Operator 03/23/24 documented as of this encounter
--- OUTSIDE RECORDS SUMMARY | 2025-03-02 12:58 | XMS_ITS | Encounter Summary ---
Author Organization [employer] Address [address] [facility] 7t [place] [address] Care Team Providers Care Warehouse Team Leader Name Role Phone Diamond Blake MD Primary Care Pro vider Reason for Visit * Reason Onset Date Comments Med Refill 07/07/2023 Encounter Details Date Type Department Care Team (Late st Contact Info) Description 07/07/2023 Refill [facility] [address] [place] [address] Otoniel Bella MD 230 [place] [address] Chronic pain of both knees; Acute pain [...] Description 06/02/2025 10:00 AM EDT Office Visit [facility] MEDICINE [address] [place] [address] Diamond Blake MD 230 [place] [address] documented as of this encounter Visit Diagnoses Diagnosis Chronic pain of both knees Acute pain of left shoulder documented in this encounter Additional Health Concerns Assessment Noted Time PHQ-9 Depression Total Score: 15 023 2:22 PM EST documented as of this encounter Care Teams Warehouse Team Leader Relationship Specialty Start Date End Date Diamond Blake MD [address] [place] [address] PCP - General Internal Medicine 06/30/23 Zechariah Bradley Criminal JudgeGrants Assistant 03/23/24 documented as of this encounter
--- OUTSIDE RECORDS SUMMARY | 2025-03-02 12:58 | XMS_ITS | Encounter Summary ---
Author Organization [employer] Address [address] [place] [address] 7 [place] [address] Care Team Providers Care Surface Water Manager Name Role Phone Diamond Blake MD Primary Care Pro vider Reason for Referral * Consultation (Routine) - Pending Review Specialty Diagnoses / Procedures Referred By Anival daniels Referred To Contact Plastic Surgery Diagnoses Droopy eyelid, bilateral Diamond Blake MD [address] [place] [address] Phone: tel: fax: Referral ID Status Reason Start Date Expiration Date Visits Requested Visits Authorized [id number] Pending Review Specialty Services Required 03/02/2025 03/02/2026 1 1 * Medications - Closed Specialty Diagnoses / Procedures Referred By Anival daniels Referred To Contact Diagnoses Obesity (BMI 30-39.9) Diamond Blake MD [address] [place] [address] Phone: tel: fax: Referral ID Status Reason Start Date Expiration Date Visits Re quested Visits Authorized [id number] Closed 1 1 Encounter Details Date Type Department Care Team ([facility] st Contact Info) Description 03/02/2025 10:30 AM EDT Office Visit [facility] MEDICINE [address] [place] [address] Diamond Blake MD [address] [place] [address] Prediabetes (Primary Dx); Obesity (BMI 30-39.9); Droopy eyelid, bilateral; Hypokalemia Social History Tobacco Use Types Packs/Day Years [...] AM EDT documented as of this encounter Last Filed Vital Signs Vital Sign Reading [...] Mass Index 36.07 03/02/2025 10:35 AM EDT documented in this encounter Plan of Treatment Upcoming Encounters Date Type Department Care Team (Late st Contact Info) Description 06/02/2025 10:00 AM EDT Office Visit [facility] MEDICINE [address] [place] [address] Diamond Blake MD [address] [place] [address] Scheduled Orders Name Type Priority Associated Diagnoses Orde r Schedule Comprehensive Metabolic Panel Lab Routine Hypokalemia Expected: 03/02/2025 (Approximate), Expires: 03/02/2026 Magnesium Lab Routine Hypokalemia Expected: 03/02/2025, Expires: 03/02/2026 Scheduled Referrals Name Type Priority Associated Diagnoses Orde r Schedule Referral to Plastic Surgery Outpatient Referral Routine Droopy eyelid, bilateral Expected: 03/02/2025 (Approximate), Expires: 03/02/2026 documented as of this encounter Visit Diagnoses Diagnosis Prediabetes- Primary Other abnormal glucose Obesity (BMI 30-39.9) Droopy eyelid, bilateral Hypokalemia Hypopotassemia documented in this encounter Additional Health Concerns Assessment Noted Time PHQ-9 Depression Total Score: 14 024 9:42 AM EDT documented as of this encounter Care Teams Surface Water Manager Relationship Specialty Start Date End Date Diamond Blake MD [address] [place] [phone] PCP - General Internal Medicine 06/30/23 Zechariah Bradley Assistant City AttorneyBundles Hanger 03/23/24 documented as of this encounter
--- OUTSIDE RECORDS SUMMARY | 2025-03-02 12:58 | XMS_ITS | Encounter Summary ---
Author Organization [employer] Address [address] [facility] 7t [place] [address] Care Team Providers Care Diet Assistant Name Role Phone Kailash Trevizo Primary Care Provider Unavail able Diamond Blake MD Primary Care Pro vider Reason for Visit * Reason Comments Med Refill Encounter Details Date Type Department Care Team (Late st Contact Info) Description 02/11/2023 Refill [facility] [address] [place] [address] Otoniel Bella MD [address] [place] [address] Chronic pain of both knees; Acute pain [...] Description 06/02/2025 10:00 AM EDT Office Visit [facility] MEDICINE [address] [place] [address] Diamond Blake MD [address] [place] [address] documented as of this encounter Visit Diagnoses Diagnosis Chronic pain of both knees Acute pain of left shoulder documented in this encounter Additional Health Concerns Assessment Noted Time PHQ-9 Depression Total Score: 15 12/12/ 023 2:22 PM EST documented as of this encounter Care Teams Diet Assistant Relationship Specialty Start Date End Date Kailash Trevizo AGNP PCP - General Family Medicine 11/13/22 06/29/23 Diamond Blake MD [address] [place], [place] [phone] PCP - General Internal Medicine 06/30/23 Zechariah Bradley Process Control Board OperatorPr Internship 03/23/24 documented as of this encounter
== END 2025-03-02 11:58 | disposition home or self-care (01) ==
LOC: HO.HHCL 11:57
PROVIDERS: Visit Provider Student in an Organized Health Care Education/Training Program
DX: Z13.89 Encounter for screening for other disorder (principal)

== ENCOUNTER 2025-03-14 13:34 | Outpatient (AMB) | payer OTHER, SELFPAY ==
--- OUTSIDE RECORDS SUMMARY | 2025-03-14 13:45 | XMS_ITS | Encounter Summary ---
Author Organization [employer] Address [address] [place] [address] 7 [place] [address] Care Team Providers Care Development Rep Name Role Phone Diamond Blake MD Primary Care Pro vider Reason for Visit * Reason Onset Date Comments Med Refill 07/08/2023 Encounter Details Date Type Department Care Team (Late st Contact Info) Description 07/08/2023 Refill [facility] MEDICINE [address] [place] [address] Diamond Blake MD [address] [place] [address] Severe chronic obstructive pulmonary disease (CMS/HCC); Hypertension, [...] Office Visit [facility] MEDICINE [address] [place] [address] Dimaond Blake MD [address] [place], [place] [phone] documented as of this encounter Visit Diagnoses Diagnosis Severe chronic obstructive pulmonary disease (CMS/HCC) Chronic airway obstruction, not elsewhere classified Hypertension, unspecified type Hyperlipidemia, unspecified hyperlipidemia type Chronic pain of both knees Acute pain of left shoulder documented in this encounter Additional Health Concerns Assessment Noted Time PHQ-9 Depression Total Score: 15 023 2:22 PM EST documented as of this encounter Care Teams Development Rep Relationship Specialty Start Date End Date Diamond Blake MD [address] [place] [address] PCP - General Internal Medicine 06/30/23 Zechariah Bradley Single Pointed OperatorRetoucher Photoengraving 03/23/24 documented as of this encounter
[2025-03-14 15:04] VITALS: BMI 36.2
--- NOTE | 2025-03-14 15:04 | A.OFFVIS_ITS ---
Vital Signs 03/14/25 15:04 Height 5 ft 2 in Weight 198 lb BMI 36.2 Intake Visit Reasons: PO-Lt RF Trigger 12/27/24-ROM check Intake Note: Diamond is a 75 year old right handed B[place]udian speaking patient who presents today for a post operative visit s/p right ring finger A1 alice release DOS: 12/27/24 w/ Dr Hannah Barrios. States she is doing well and has no concern. Allergies animal dander Allergy (Verified 01/16/25 16:06) Rash tree and shrub pollen Allergy (Verified 01/16/25 16:06) Rash HPI HPI PO-Lt RF Trigger 12/27/24-ROM check: Details: The patient is a 75-year-old hiyov-lxme-ybqooplx [place]udian-speaking woman who is status post a right ring finger A1 alice release on 12/27/2024. She has done well postoperatively, but had some problems with range of motion after surgery. MILEY Lizama sent her for OT hand therapy and she says that she has been doing much better. [facility] Medical History Snoring Renal calculi Limb swelling Sleep apnea Hx of renal calculi Pulmonary nodules Chronic allergic rhinitis Asthma Hypertension Non-toxic multinodular goiter Osteopenia Fernando's disease Hypothyroidism History of primary hyperparathyroidism Surgical History Hx of hand surgery Status post fine needle aspiration Hx of cystoscopy Hx of lithotripsy History of surgery on arm Hx of parathyroidectomy H/O partial thyroidectomy Hx of tubal ligation Family History Maternal Grandmother Diabetes Father No problems noted. Mother Hypertension Asthma Social History Are you a primary senior caregiver to a significant other at home: No Do you presently have visiting nurse or other home services: No Alcohol intake: never Patient Tobacco Use Status: Never used Tobacco Current occupational status: disabled Current occupation: right hand dominant Physical Exam Vital Signs: BMI result Body Mass Index 36.2 Extrem Other: The patient was alert oriented and in no acute distress. Her surgical incision is healed and not really visible She can now make a fist and extend all of her digits including the ring finger. No locking or catching No evidence of discomfort Assessment & Plan Assessment & Plan (1) Stiffness of hand joint: Code(s): M25.649 - Stiffness of unspecified hand, not elsewhere classified Category: Medical (2) Trigger finger, right ring finger: Code(s): M65.341 - Trigger finger, right ring finger Category: Medical Plan Assessment and plan: 1. Right ring finger trigger finger, status post release Date of surgery 12/27/2024 The patient evidently had some difficulty with range of motion initially and participated in OT hand therapy. She is now doing very well, and can make a fist and extend all of her digits. She is happy with the results of her surgery and hand therapy. She may follow up PRN Coding Level of Care Code Global (49563) Diagnoses Stiffness of hand joint M25.649 Trigger finger, right ring finger M65.341
== END 2025-03-14 15:06 | disposition home or self-care (01) ==
LOC: HO.HOS 13:35
PROVIDERS: PCP Student in an Organized Health Care Education/Training Program; Visit Provider Orthopaedic Surgery
DX: M25.649 Stiffness of unspecified hand, not elsewhere classified (principal); M65.341 Trigger finger, right ring finger
CPT/HCPCS: 99024

== ENCOUNTER → 2025-03-14 13:34 | Outpatient (BNVA) | payer OTHER, SELFPAY | PROVIDERS: PCP Student in an Organized Health Care Education/Training Program; Visit Provider Orthopaedic Surgery | DX: Z47.89 Encounter for other orthopedic aftercare (principal); M25.649 Stiffness of unspecified hand, not elsewhere classified; Z98.890 Other specified postprocedural states | CPT/HCPCS: 99212 ==

== ENCOUNTER 2025-03-29 09:25 | Outpatient (REF) | payer OTHER, SELFPAY ==
--- NOTE | ~2025-03-29 | XR_ITS ---
EXAMINATION: XR CHEST 2 VIEWS HISTORY: 1 week of URI now with fever and increased SOB. COMPARISON: Comparison is made with the prior examination dated 05/07/2020. FINDINGS: PA and lateral views of the chest are submitted. There is subsegmental atelectasis at the left lung base. The right lung is clear. There is no pleural effusion, pneumothorax, or pulmonary vascular congestion. The heart is normal in size. A portion of an intramedullary shannon is seen in the proximal right humerus. XR/XR chest 2V IMPRESSION: Left basilar subsegmental atelectasis. Electronically signed by: Sal Saldaña MD 03/29/2025 09:48 AM EDT
--- OUTSIDE RECORDS SUMMARY | 2025-03-29 10:15 | XMS_ITS | Encounter Summary ---
Author Organization [employer] Address [address] [place] [address] 7 [place] [address] Care Team Providers Care Personalization Specialist Name Role Phone Diamond Blake MD Primary Care Pro vider Reason for Visit * Reason Onset Date Comments Med Refill 07/08/2023 Encounter Details Date Type Department Care Team (Late st Contact Info) Description 07/08/2023 Refill [facility] MEDICINE [address] [place] [address] Diamond Blake MD [address] [place] [address] Severe chronic obstructive pulmonary disease (CMS/HCC); Hypertension, [...] [facility] MED[facility]INE [address] [place] [address] Diamond Blake MD [address] [place], [place] [phone] documented as of this encounter Visit Diagnoses Diagnosis Severe chronic obstructive pulmonary disease (CMS/HCC) Chronic airway obstruction, not elsewhere classified Hypertension, unspecified type Hyperlipidemia, unspecified hyperlipidemia type Chronic pain of both knees Acute pain of left shoulder documented in this encounter Additional Health Concerns Assessment Noted Time PHQ-9 Depression Total Score: 15 023 2:22 PM EST documented as of this encounter Care Teams Personalization Specialist Relationship Specialty Start Date End Date Diamond Blake MD [address] [place] [address] PCP - General Internal Medicine 06/30/23 Zechariah Bradley Practice AdministratorSwiss Type Screw Machine Operator 03/23/24 documented as of this encounter
== END 2025-03-29 09:26 | disposition home or self-care (01) ==
LOC: HO.HHCX 09:25
PROVIDERS: Visit Provider Family Medicine
DX: J45.21 Mild intermittent asthma with (acute) exacerbation (principal)
CPT/HCPCS: 71046

== ENCOUNTER → 2025-03-29 09:26 | Outpatient (BNV) | payer OTHER, SELFPAY | PROVIDERS: Visit Provider Radiology Diagnostic Radiology | DX: J98.11 Atelectasis (principal) | CPT/HCPCS: 71046 ==

== ENCOUNTER 2025-03-30 13:29 | Outpatient (AMB) | payer MEDICAID, SELFPAY ==
[2025-03-30 13:31] VITALS: BP 112/60; PULSE 78; O2SAT 96; BMI 35.9
--- NOTE | 2025-03-30 13:31 | A.OFFVIS_ITS ---
Vital Signs 03/30/25 13:31 Height 5 ft 2 in Weight 196 lb 6.91 oz BMI 35.9 BP 112/60 Blood Pressure Location Lt brachial Position Sitting Pulse 78 Pulse Source Pulse Oximeter Pulse Oximetry (%) 96 Oxygen Delivery Method Room Air Intake Visit Reasons: Hypothyroidism Intake Note: Patient present today for Hypothyroidism office visit. Painter Ordnance Name: Sudarshan [id number] Allergies animal dander Allergy (Verified 03/30/25 13:36) Rash tree and shrub pollen Allergy (Verified 03/30/25 13:36) Rash Medication List - Last Reconciled 03/30/25 by Ana Mora MD albuterol sulfate 2.5 mg (3 mL) inhalation Q4-6H PRN albuterol sulfate 90 mcg/actuation (Ventolin HFA) 2 puffs inhalation QID PRN 30 days ammonium lactate 12% appl topical atorvastatin 10 mg PO QAM calcium citrate 500 mg (2 x 250 mg calcium) PO BID cholecalciferol (vitamin D3) (Vitamin D3) 50 mcg PO DAILY compress.stocking,knee,reg,med 15-20 cm cyclobenzaprine 10 mg PO TID PRN diphenhydramine HCl (Benadryl Allergy) 50 mg PO Q8H PRN epinephrine 0.3 mg (0.3 mL) IM .q 10min x2 fluticasone propionate 50 mcg/actuation 2 sprays intranasal DAILY fgqjatnfvfh-gpvcgmuiy-aipxuagi 200-62.5-25 mcg (Trelegy Ellipta) 1 ea inhalation DAILY furosemide (Lasix) 20 mg PO DAILY 7 days hydrochlorothiazide 25 mg PO DAILY hydroxyzine HCl 25 mg PO TID PRN 7 days ibuprofen 800 mg PO Q8H PRN levothyroxine 125 mcg PO DAILY loratadine 10 mg PO QAM 30 days magnesium oxide 400 mg PO BEDTIME 30 days montelukast 10 mg PO QPM 30 days naproxen 500 mg PO BID 30 days nebulizers As directed omalizumab (Xolair) 75 mg (0.5 mL) subcut Q2W 28 days omalizumab (Xolair) 150 mg subcut Q2W 28 days pyridoxine (vitamin B6) 100 mg PO DAILY 90 days sennosides (senna) 17.2 mg PO BEDTIME PRN sertraline 25 mg PO QAM triamcinolone acetonide 0.1% appl topical BID HPI Comments Details: 64-year-old female, today for follow-up visit for hypothyroidism. Here today with daughter. she was previously seeing Dr. Mayfield, She was discharge to primary care office as she was doing well on her levothyroxine dose, and had normal calcium levels after history of primary hyperparathyroidism status post right superior parathyroidectomy And left hemithyroidectomy 12/01/2018. HPI 08/26/2018: FNA of a left lower pole thyroid nodule consistent with a AUS, unfortunately Afirma sample was insufficient for RNA. She also had primary hyperparathyroidism. Status post right superior parathyroidectomy and left hemithyroidectomy 12/01/2018 with PTH dropped from 126-26 pg/mL. 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 she was not sure of her levothyroxine dosage today. We called [facility]. During the appointment Currently on levothyroxine 125 mcg daily , last picked 12/23 for 90 days supply dose was changed from 150 mcg to 125 mcg daily in sep 2024 Interval history Continues on levothyroxine 125 mcg daily Labs from December 2024 showed normal TSH and free T4 Patient currently denies heat or cold intolerance, diarrhea or constipation, hair loss, palpitation, anxiety, weight changes, mood changes, changes in appearance of eyes or vision changes, tremors, increased diaphoresis or dry skin. ? does report tiredness. Patient denies any difficulty swallowing, pain on swallowing or voice changes or difficulty breathing. Patient denies any history of childhood neck radiation. Denies having ever used lithium, amiodarone or biotin supplements. Patient denies any family history of thyroid cancer . Daughter has thyroid disease. Physical exam General: sitting comfortably in no acute distress HEENT: normocephalic/atraumatic Neck: supple, symmetrical, surgical scar noted Cardiac: normal heart sounds Pulm: normal breath sounds B/L, no added breath sounds Abd: not distended, no tenderness Extremities: no edema, no signs of myxedema Laboratory Tests 02/19/24 09/05/24 09/14/24 08:42 08:25 08:37 Calcium 9.6 TSH 1.97 0.15 L 0.15 L Free T4 1.14 1.66 1.31 Laboratory Tests 12/29/24 14:18 TSH 1.20 Free T4 1.31 Laboratory Tests 03/02/25 12:05 Calcium 9.6 Albumin 4.2 US thyroid 11/10/17 Right Thyroid Lobe: 2.6 x 0.8 x 1.0 cm, volume 1.1 ml. Left Thyroid Lobe: 2.8 x 0.8 x 1.1 cm, volume 1.3 ml. Isthmus: 0.2 cm in maximum TRV dimension. PARENCHYMA: The gland echo texture is heterogeneous. Thyroid vascularity is normal. RIGHT THYROID LOBE: No nodules. ISTHMUS: No nodules. LEFT THYROID LOBE: There is 1 nodule seen. 1. Location: Lower pole. Size: 1.4 x 0.7 x 0.8 cm. Nodule characteristics: Hypoechoic, smoothly marginated with intra nodular flow. No lymphadenopathy is seen in the tissue surrounding the thyroid gland. No soft tissue masses seen extrinsic or posterior to the right thyroid lobe. 11/06/17 NUCLEAR MEDICINE PARATHYROID SCAN WITH SPECT-CT SPECT CT images demonstrate right-sided nodule with increased activity noted in the right paraesophageal location posterior and inferior to the right thyroid lobe measuring approximately 1.2 x 0.8 cm. This raises the possibility of parathyroid adenoma. Differential possibility includes prominent lymph node. [facility] Medical History Snoring Renal calculi Limb swelling Sleep apnea Hx of renal calculi Pulmonary nodules Chronic allergic rhinitis Asthma Hypertension Non-toxic multinodular goiter Osteopenia Fernando's disease Hypothyroidism History of primary hyperparathyroidism Surgical History Hx of hand surgery Status post fine needle aspiration Hx of cystoscopy Hx of lithotripsy History of surgery on arm Hx of parathyroidectomy H/O partial thyroidectomy Hx of tubal ligation Family History Maternal Grandmother Diabetes Father No problems noted. Mother Hypertension Asthma Social History Are you a primary occasional caregiver to a significant other at home: No Do you presently have visiting nurse or other home services: No Alcohol intake: never Patient Tobacco Use Status: Never used Tobacco Current occupational status: disabled Current occupation: right hand dominant Assessment & Plan Assessment & Plan (1) Hypothyroidism: Code(s): E03.9 - Hypothyroidism, unspecified Category: Medical Qualifiers: Hypothyroidism type: due to Fernando's thyroiditis Qualified Code(s): E06.3 - Autoimmune thyroiditis Plan: 64-year-old female with a history of Fernando's disease, who had a history of left-sided thyroid nodule status post left hemithyroidectomy in 2019 with benign pathology. She is now being seen for hypothyroidism. Currently on levothyroxine 125 mcg daily. Last set of labs from December 2024 showed normal thyroid function. At this time she is biochemically euthyroid. Previously we had discharged her to her PCP, however because she had some fluctuations in her TSH levels, she is seeing us again. We can see her annually with repeat blood work. Plan: - continue levothyroxine 125 mcg daily -do blood work today, 3-4 days prior to follow up visit in March 2026 - follow up in 1 year Plan See above Orders: Orders Thyroid Stimulating Hormone 1 Year E06.3 - Autoimmune thyroiditis Free T4 (Free Thyroxine) 1 Year E06.3 - Autoimmune thyroiditis Medications: Refilled levothyroxine 125 mcg PO DAILY 90 tabs 4RF Patient Instructions: continue levothyroxine 125 mcg daily -do blood work today, 3-4 days prior to follow up visit in March 2026 - follow up in 1 year Continuar con levotiroxina 125 mcg al d?a. - Realizar an?lisis de alyce durham, 3-4 d?as antes de la visita de seguimiento en 2025. - Seguimiento en 1 a?o. 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
== END 2025-03-30 13:46 | disposition home or self-care (01) ==
LOC: HO.ENCR 13:30
PROVIDERS: PCP Internal Medicine; Visit Provider Student in an Organized Health Care Education/Training Program
DX: E06.3 Autoimmune thyroiditis (principal)
CPT/HCPCS: 99213

== ENCOUNTER → 2025-03-30 13:29 | Outpatient (BNVA) | payer MEDICAID, SELFPAY | PROVIDERS: PCP Internal Medicine; Visit Provider Student in an Organized Health Care Education/Training Program | DX: E06.3 Autoimmune thyroiditis (principal) | CPT/HCPCS: 99212 ==

== ENCOUNTER 2025-05-04 13:24 | Outpatient (REF) | payer MEDICAID, SELFPAY ==
--- NOTE | ~2025-05-04 | MM_ITS ---
EXAMINATION: DXA BONE DENSITY EXTREMITY HISTORY: M85.80 OSTEOPENIA TECHNIQUE: [facility] Dual energy absorptiometry (DEXA) of the lumbar spine, total left hip, femoral neck, and distal radius was performed. COMPARISON: Comparison is made with the prior examination dated 01/02/2023. FINDINGS: The bone mineral density of the lumbar spine is 1.111 g/cm2, corresponding to a T-score of -0.6, and a Z-score of 0.3. This is indicative of normal bone mineral density. This represents a BMD change of 5.1% compared to the prior exam. This is statistically significant. The bone mineral density of the left total hip is 0.977 g/cm2, corresponding to a T-score of -0.2, and a Z-score of 0.4. This is indicative of normal bone mineral density. This represents a BMD change of -7.2% compared to the prior exam. This is statistically significant. The bone mineral density of the left femoral neck is 0.862 g/cm2, corresponding to a T-score of -1.3, and a Z-score of -0.3. This is indicative of osteopenia. This represents a BMD change of 2.3% compared to the prior exam. The bone mineral density of the distal radius is 0.806 g/cm2, corresponding to a T-score of -0.8, and a Z-score of 0.6. This is indicative of normal bone mineral density. This represents a BMD change of 0.6% compared to the prior exam. This is not statistically significant. FRACTURE RISK: The FRAX index suggests a ten year probability of major osteoporotic fracture of 8.6%, and of hip fracture 0.4%. MM/XR DEXA appendicular skeleton IMPRESSION: Based on bone mineral density, and according to World Health Organization (WHO) criteria, the diagnosis is consistent with osteopenia. Statistically, 68% of repeat scans fall within 1 SD (+/- 0.010 g/cm2 for AP spine L1-L4) and 1 SD (+/- 0.012 g/cm2 for femur total) FRAX is a trademark of the [employer]'s [employer], a World Health Organization (WHO) Collaborating Center. Electronically signed by: Sal Saldaña MD 05/04/2025 02:38 PM EDT
--- NOTE | ~2025-05-04 | MM_ITS ---
EXAMINATION: MM SCREENING DIGITAL BREAST TOMOSYNTHESIS, BILATERAL CLINICAL INFORMATION: Screening. Asymptomatic. COMPARISON: Mammography: Comparison is made with available priors TECHNIQUE: Digital breast mammography with tomosynthesis is performed in both the craniocaudal and mediolateral oblique views along with computer-aided detection (CAD). FINDINGS: There are scattered areas of fibroglandular density (ACR BI-RADS breast composition Category b). There are no significant masses, abnormal calcifications, or other abnormalities. MM/MM tomosynthesis screening BI IMPRESSION: No mammographic evidence of malignancy. ASSESSMENT: BI-RADS BI-RADS 1 - Negative RECOMMENDATION: Routine annual mammography screening. 1 year F/U This examination should not preclude the clinical evaluation of a suspicious palpable abnormality. This patient's information was entered into a reminder system with a target due date for their next mammogram. Electronically signed by: Sepideh Doherty DO 05/15/2025 04:30 PM EDT
--- OUTSIDE RECORDS SUMMARY | 2025-05-04 13:56 | XMS_ITS | Encounter Summary ---
Author Organization [employer] Address [address] [place] [address] [address] [place] [address] Care Team Providers Care Monument Carver Name Role Phone Diamond Blake MD Primary Care Pro vider Reason for Visit * Reason Onset Date Comments Med Refill 07/08/2023 Encounter Details Date Type Department Care Team (Late st Contact Info) Description 07/08/2023 Refill [facility] [address] [place] [address] Diamond Blake MD [address] [place] [address] Severe chronic obstructive pulmonary disease (CMS/HCC); Hypertension, [...] Description 06/02/2025 10:00 AM EDT Office Visit [facility] [address] [place] [address] Diamond Blkae MD [address] [place], [place] [phone] documented as of this encounter Visit Diagnoses Diagnosis Severe chronic obstructive pulmonary disease (CMS/HCC) Chronic airway obstruction, not elsewhere classified Hypertension, unspecified type Hyperlipidemia, unspecified hyperlipidemia type Chronic pain of both knees Acute pain of left shoulder documented in this encounter Additional Health Concerns Assessment Noted Time PHQ-9 Depression Total Score: 15 023 2:22 PM EST documented as of this encounter Care Teams Monument Carver Relationship Specialty Start Date End Date Diamond Blake MD [address] [place] [address] PCP - General Internal Medicine 06/30/23 Zechariah Bradley Financial Planning AssistantRadio Despatcher 03/23/24 documented as of this encounter
== END 2025-05-04 13:25 | disposition home or self-care (01) ==
LOC: HO.MAMMO 13:24
PROVIDERS: PCP Student in an Organized Health Care Education/Training Program; Visit Provider Student in an Organized Health Care Education/Training Program
DX: M85.80 Other specified disorders of bone density and structure, unspecified site (principal); Z78.0 Asymptomatic menopausal state; Z86.39 Personal history of other endocrine, nutritional and metabolic disease; Z12.31 Encounter for screening mammogram for malignant neoplasm of breast
CPT/HCPCS: 77063; 77067; 77081

== ENCOUNTER → 2025-05-04 14:00 | Outpatient (BNV) | payer MEDICAID, SELFPAY | PROVIDERS: PCP Student in an Organized Health Care Education/Training Program; Visit Provider Radiology Diagnostic Radiology | DX: E28.39 Other primary ovarian failure (principal) | CPT/HCPCS: 77081 ==

== ENCOUNTER 2025-07-07 09:35 | Outpatient (AMB) | payer MEDICAID, SELFPAY ==
--- NOTE | 2025-07-07 09:36 | A.OFFVIS_ITS ---
Vital Signs 07/07/25 09:37 Height 5 ft 2 in Weight 179 lb 10.828 oz BMI 32.9 BP 118/52 L Blood Pressure Location Lt brachial Position Sitting Pulse 89 Pulse Source Pulse Oximeter Pulse Oximetry (%) 96 Oxygen Delivery Method Room Air Intake Visit Reasons: Asthma Allergies animal dander Allergy (Verified 07/07/25 09:39) Rash tree and shrub pollen Allergy (Verified 07/07/25 09:39) Rash HPI Comments Details: The patient is a 64-year-old woman with a known history of asthma since she was a teenager. She states she has been on multiple respiratory medications. Ross few months she has been more short of breath. She has a hard time going up a flight of stairs. She is also having issues because [place] smoking her apartment complex. Also her daughter smoking. All the fumes and irritants are bothering her asthma. She is having more frequent exacerbations which she needs to use her nebulizer. She has been using her rescue inhaler at least on a daily basis. She continues with Spiriva and Advair. She has also been on singular. She states that she has never had allergy testing. On further questioning she does have daytime drowsiness. Her [place] score is elevated 10/11. She did have a sleep study in the past demonstrated she has sleep apnea. She did try the CPAP but she could not tolerated. Explained to her the importance of using CPAP if she has underlying sleep apnea. At this point will focus on improving her respiratory status then we have to revisit the whole sleep apnea issue. She also had a CT scan of the chest that we personally reviewed back in 2018. She did have evidence of granulomas. This is likely from a previous infection. 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 09/26/2022 the patient is here for pulmonary follow-up visit. She is complaining of multiple constitutional complaints. She is having some headaches and some chest tightness. She feels her asthma is active. Having significant wheezing. Moderate severity. She is using rescue inhaler with partial resolution of the symptoms. She still has the issue with the cockroaches in her house. She does have significant chest tightness when she is seen the past. The patient did have allergy testing done demonstrating positive allergies to her throat just on the high concentration. The patient also has significant allergies to dust mites and also environmental allergens. The patient is already maxed out on respiratory therapy with Trelegy. She does have wheezing on examination. Based on her elevated IgE and allergy testing the patient does have allergic asthma. Will go ahead and start the process to start her on Xolair monoclonal antibody for IgE. This will help her symptoms and hopefully decrease her exacerbations. In the meantime for wheezing I will give a prescription for prednisone that she will take if her symptoms get worse. The patient also complains of headaches and chills. She also has a slight sore throat. Denies any exposure to anybody with COVID-19 or flu. Although she is not sure. Will go ahead and swab her today for the virus syndromes and will let her know the results. The patient will follow-up in 3-4 months 01/23/2023 the patient is here for a pulmonary follow-up visit. She is feeling better. Still having some sinus pressure. The patient has been using the Trelegy inhaler. In addition to this the patient did start the these are injections with good effect. She had 1 bout of lower extremity edema with an allergic reaction. Although that settled. I do not believe that was from the Xolair. The patient does have significant allergies in the Xolair should help but does allergy reactions. In the meantime the patient does not have an EpiPen. We did instruct her how to use 1 effectively and did provide her an EpiPen for her to use in case of any emergencies. The patient will follow-up in 6 months or sooner if she develops any other issues. 09/04/2023 the patient is here for pulmonary follow-up visit. She has been complaining of worsening respiratory symptoms. She has been sick now for about 3 days. She went to Urgent Care yesterday. Denies any fevers. She has had some chills and she has had worsening congested cough. She went to the urgent care and she was given prednisone. The patient is not feeling any better. We did another swab today with flu RSV and COVID. The patient also will start azithromycin. Her exam is symmetrical so therefore will hold off on any imaging studies. If the patient is no better by next week she can always come in for chest x-ray. In the meantime she will continue with all her respiratory therapy in Xolair that has been affecting beneficial. If her swab is positive for either RSV COVID or the flow I will call her to let you know and treat her appropriately. 01/04/2025 the patient is here for pulmonary follow-up visit. Overall she is doing okay. Although she has not been able to get a maintenance inhaler and she is having some increased chest tightness and wheezing. She does have a rescue inhaler she uses it a few times a day. She also continues on the Xolair. The family was wondering why she was on Xolair we did review her allergies. She has significant allergies to multiple trees and grasses and dust mites and also cockroaches. She does state that her current apartment in [facility] has cockroaches in that is been an issue. She would like a letter to state that she has significant allergies to the past and she needs to be relocated. Will provide a letter once available. In the meantime the patient needs to start maintenance inhaler. Will start her on Breo that she can use once a day make sure she rinses well and gargles afterwards. She also has been on Singulair and antihistamine therapy that she should also continue. The patient will also continue the Xolair. Will have her get blood work to assess her IgE levels in a ddition to eosinophil levels and see if we have to make any changes on her Xolair. But for now specially transitioning to the spring she should continue the Xolair. Will plan to follow-up in 4-6 months. If she has any difficulties prior to that she will call for an earlier assessment. 07/07/2025 the patient is here for pulmonary follow-up visit. The patient overall has been doing okay. She does have increased asthma symptoms though. She has been on the Trelegy 200 in addition to all the allergy medicines. She also continues on Xolair. The problem she continues to live in a cockatiel she infested apartment. It is bothering her breathing. She would like to move all but she has a hard time finding another place. I did already provide her a letter in order for the past to be removed. In the meantime the patient will undergo additional blood work in addition to a chest x-ray. Her last chest x- ray from March 2025 was done because she had a URI. The x-ray showed some minimal atelectasis to the left base. She did have a CT scan of the abdomen which I personally reviewed from 2023 demonstrating some atelectasis of the left base as well. Will go ahead and repeat her chest x-ray to make sure that that areas resolved. If it continues to be present will consider getting additional imaging studies. She will continue with the current respiratory regimen as she is already optimized. Although with the blood work will decide if we need to adjust the Xolair or change the injection. As far as her sleep she continues have some difficulty sleeping. Will try some melatonin. She did have sleep apnea in the past but she is not tolerate the CPAP. She continues to perform positional therapy. [facility] Medical History Snoring Renal calculi Limb swelling Sleep apnea Hx of renal calculi Pulmonary nodules Chronic allergic rhinitis Asthma Hypertension Non-toxic multinodular goiter Osteopenia Fernando's disease Hypothyroidism History of primary hyperparathyroidism Surgical History Hx of hand surgery Status post fine needle aspiration Hx of cystoscopy Hx of lithotripsy History of surgery on arm Hx of parathyroidectomy H/O partial thyroidectomy Hx of tubal ligation Family History Maternal Grandmother Diabetes Father No problems noted. Mother Hypertension Asthma Social History Are you a primary gericare aide to a significant other at home: No Do you presently have visiting nurse or other home services: No Alcohol intake: never Patient Tobacco Use Status: Never used Tobacco Current occupational status: disabled Current occupation: right hand dominant Review of Systems Const Denies night sweats, Reports snoring and Reports weight gain ENT Denies change in voice, Denies lip swelling, Denies mouth pain, Reports nasal congestion, Reports nasal discharge, Reports sore throat and Denies tongue swe lling Card Denies chest pain, Reports leg edema and Reports dyspnea on exertion Resp Denies chest congestion, Reports cough, Denies hemoptysis, Reports dyspnea on exertion, Reports snoring and Reports wheezing GI Denies abdominal pain Musc Denies no additional complaints Neuro Denies Neuro-related abnormal movements Psych Denies no additional complaints Cheko/Lymph Denies easy bleeding and Denies lymphadenopathy Aller/Immun Denies lip swelling, Denies tongue swelling and Reports wheezing Physical Exam Vital Signs: Last Vital Signs Pulse 89 07/07/25 09:37 BP 118/52 L 07/07/25 09:37 Pulse Ox 96 07/07/25 09:37 Oxygen Delivery Method Room Air 07/07/25 09:37 BMI result Body Mass Index 32.9 Const General: cooperative, comfortable and no acute distress Orientation/consciousness: patient oriented x3 HEENT Head: Yes normal to inspection Neck Neck: Yes normal visual inspection and Yes no JVD Carotids: normal carotid upstroke Chest Chest palpation & inspection: normal inspection of the chest Resp Effort & Inspection: able to speak in complete sentences Auscultation: no crackles, no rales, no rhonchi, no wheezes and diminished lung sounds Cardio Rate: regular rate Rhythm: regular rhythm Heart sounds: S1 normal heart sound present, S2 normal heart sound present, no gallops, no murmurs and no rubs GI Inspection: Yes normal to inspection Skin General skin exam: no rashes or lesions noted Neuro General: patient oriented x3 Extrem General: Yes normal to inspection, No no pedal edema, No calf tenderness, No clubbing, No cyanosis and Yes edema Assessment & Plan Assessment & Plan (1) Asthma: Code(s): J45.909 - Unspecified asthma, uncomplicated Category: Medical Qualifiers: Asthma complication type: uncomplicated Asthma persistence: persistent Asthma severity: moderate Qualified Code(s): J45.40 - Moderate persistent asthma, uncomplicated (2) Pulmonary nodules: Comment: calcified consistent with granulommas Code(s): R91.8 - Other nonspecific abnormal finding of lung field Category: Medical (3) PAOLA (obstructive sleep apnea): Comment: Not using CPAP Code(s): G47.33 - Obstructive sleep apnea (adult) (pediatric) Category: Medical (4) Chronic allergic rhinitis: Code(s): J30.9 - Allergic rhinitis, unspecified Category: Medical Plan continue Trelegy 200 Continue allergy medicine: singulair and Claritin continue Xolair EPIPEN Bloodwork ?adjusting biologic CXR positional therapy for PAOLA, if no better consider APAP Bloodwork F/U 4-6 months Orders: Orders Erythrocyte Sedimentation Rate 07/07/25 J45.909 - Unspecified asthma, unco mplicated Basic Metabolic Panel 07/07/25 J45.909 - Unspecified asthma, uncomplicated Immunoglobulin E 07/07/25 J45.909 - Unspecified asthma, uncomplicated Hypersensitive Pneumonitis Prf 07/07/25 J45.909 - Unspecified asthma, uncomplicated, R91.8 - Other nonspecific abnormal finding of lung field Complete Blood Count Auto Diff 07/07/25 J45.909 - Unspecified asthma, uncomplicated XR chest 2V 07/07/25 J45.909 - Unspecified asthma, uncomplicated Medications: New melatonin 5 mg PO BEDTIME PRN 30 tabs 8RF sleep 30 days Coding Level of Care Code Est Pt Level 4 (13824) Complex EM visit Add On G2211 Diagnoses Moderate persistent asthma without complication J45.40 Asthma complication type: uncomplicated Asthma persistence: persistent Asthma severity: moderate Pulmonary nodules R91.8 PAOLA (obstructive sleep apnea) G47.33 Chronic allergic rhinitis J30.9 Time Spent (min) 17
[2025-07-07 09:37] VITALS: BP 118/52; PULSE 89; O2SAT 96; BMI 32.9
--- OUTSIDE RECORDS SUMMARY | 2025-07-07 10:06 | XMS_ITS | Encounter Summary ---
Author Organization [employer] Address [address] [facility] 7t [place] [address] Care Team Providers Care Weigher Bulker Name Role Phone Diamond Blake MD Primary Care Pro vider Encounter Details Date Type Department Care Team (Latest Contact Info) Description 05/15/2025 Results Follow-Up [facility] MEDICINE [address] [place] [address] Diamond Blake MD [address] [place] [address] BI Mammogram Screening Tomosynthesis Bilateral Social History Tobacco Use Types Packs/Day Years [...] Care Team (Late st Contact Info) Description 09/07/2025 1:15 PM EST Office Visit [facility] MEDICINE [address] [place] [address] Diamond Blake MD [address] [place] [address] 10/09/2025 2:00 PM EST Office Visit [facility] OPTOMETRY [address] [place] [address] Lani Gavin, OD [address] [place] [address] 11/23/2025 3:00 PM EST Office Visit [facility] ADULT DENTAL [address] [place] [address] Yisel Griffith documented as of this encounter Visit Diagnoses Not on filedocumented in this encounter Additional Health Concerns Assessment Noted Time PHQ-9 Depression Total Score: 14 024 9:42 AM EDT documented as of this encounter Care Teams Weigher Bulker Relationship Specialty Start Date End Date Diamond Blake MD [address] [place] [id number] PCP - General Internal Medicine 06/30/23 Zechariah Bradley Ornamental Metalwork DesignerBill Recapitulation Clerk 03/23/24 documented as of this encounter
--- OUTSIDE RECORDS SUMMARY | 2025-07-07 10:06 | XMS_ITS | Encounter Summary ---
Author Organization [employer] Address [address] [place] [address] 7 [place] [address] Care Team Providers Care Pain Management Physician Name Role Phone Kailash Trevizo Primary Care Provider Unavail able Diamond Blake MD Primary Care Pro vider Encounter Details Date Type Department Care Team (Late st Contact Info) Description 06/02/2023 Abstract [facility] ADULT DENTAL [address] [place] [address] Jennie Davis [address] [place] [address] Social History Tobacco Use Types Packs/Day Years [...] Description 09/07/2025 1:15 PM EST Office Visit [facility] MEDICINE [address] [place] [address] Diamond Blake MD [address] [place] [address] 10/09/2025 2:00 PM EST Office Visit [facility] OPTOMETRY [address] [place] [address] Lani Gavin, OD [address] [place] [address] 11/23/2025 3:00 PM EST Office Visit [facility] ADULT DENTAL [address] [place], [place] [phone] Yisel Griffith documented as of this encounter Visit Diagnoses Not on filedocumented in this encounter Additional Health Concerns Assessment Noted Time PHQ-9 Depression Total Score: 15 12/12/ 023 2:22 PM EST documented as of this encounter Care Teams Pain Management Physician Relationship Specialty Start Date End Date Kailash Trevizo AGNP PCP - General Family Medicine 11/13/22 06/29/23 Diamond Blake MD [address] [place], [place] [phone] PCP - General Internal Medicine 06/30/23 Zechariah Bradley Town ManagerChlorinator Operator 03/23/24 documented as of this encounter
--- OUTSIDE RECORDS SUMMARY | 2025-07-07 10:06 | XMS_ITS | Encounter Summary ---
Author Organization [employer] Address [address] [facility] 7 [place] [address] Care Team Providers Care Claims Manager Name Role Phone Diamond Blake MD Primary Care Pro vider Reason for Visit * Reason Comments Med Refill Encounter Details Date Type Department Care Team ([facility] st Contact Info) Description 05/22/2025 Refill [facility] MEDICINE [address] [place] [address] Diamond Blake MD [address] [place] [address] Obesity (BMI 30-39.9); Prediabetes Social History Tobacco Use Types Packs/Day Years [...] encounter Miscellaneous Notes * Telephone Encounter - Diamond Barry MD - 05/23/2025 9:17 PM EDT Next dose ordered documented in this encounter Plan of Treatment Upcoming Encounters Date Type Department Care Team (Late st Contact Info) Description 09/07/2025 1:15 PM EST Office Visit [facility] MEDICINE [address] [place] [address] Diamond Blake MD [address] [place] [address] 10/09/2025 2:00 PM EST Office Visit [facility] OPTOMETRY [address] [place] [address] Lani Gavin, OD [address] [place] [address] 11/23/2025 3:00 PM EST Office Visit [facility] ADULT DENTAL [address] [place] [address] Yisel Griffith documented as of this encounter Visit Diagnoses Diagnosis Obesity (BMI 30-39.9) Prediabetes Other abnormal glucose documented in this encounter Additional Health Concerns Assessment Noted Time PHQ-9 Depression Total Score: 14 024 9:42 AM EDT documented as of this encounter Care Teams Claims Manager Relationship Specialty Start Date End Date Diamond Blake MD [address] [place] [address] PCP - General Internal Medicine 06/30/23 Zechariah Bradley Rotary Bar OperatorStudio Hand 03/23/24 documented as of this encounter
--- OUTSIDE RECORDS SUMMARY | 2025-07-07 10:06 | XMS_ITS | Encounter Summary ---
Author Organization [employer] Address [address] [place] [address] 7 [place] [address] Care Team Providers Care Insurance Account Representative Name Role Phone Diamond Blake MD Primary Care Pro vider Reason for Visit * Reason Comments Med Refill Encounter Details Date Type Department Care Team (Late st Contact Info) Description 07/06/2023 Refill [facility] MEDICINE [address] [place] [address] Kailash Trevizo AGNP Hypertension, unspecified type Social [...] Description 09/07/2025 1:15 PM EST Office Visit [facility] MEDICINE [address] [place] [address] Diamond Blake MD [address] [place] [address] 10/09/2025 2:00 PM EST Office Visit [facility] OPTOMETRY [address] [place], [place] [phone] Romaine, Lani, OD [address] [place], [place] [phone] 11/23/2025 3:00 PM EST Office Visit [facility] ADULT DENTAL [address] [place], [place] [phone] Yisel Griffith documented as of this encounter Visit Diagnoses Diagnosis Hypertension, unspecified type documented in this encounter Additional Health Concerns Assessment Noted Time PHQ-9 Depression Total Score: 15 023 2:22 PM EST documented as of this encounter Care Teams Insurance Account Representative Relationship Specialty Start Date End Date Diamond Blake MD [address] [place], [place] [phone] PCP - General Internal Medicine 06/30/23 Zechariah Bradley Aeronautical Products Sales EngineerCustom Bow Maker 03/23/24 documented as of this encounter
--- OUTSIDE RECORDS SUMMARY | 2025-07-07 10:06 | XMS_ITS | Encounter Summary ---
Author Organization [employer] Address [address] [facility] [address] [place] [address] Care Team Providers Care Trenching Machine Operator Name Role Phone Diamond Blake MD Primary Care Pro vider Reason for Visit * Reason Onset Date Comments Med Refill 09/28/2023 Encounter Details Date Type Department Care Team (Late st Contact Info) Description 09/28/2023 Refill [facility] CHC MED & PEDS [address] [place] [address] Zaida Christy MD [address] [place] [address] Hypertension, unspecified type Social History Tobacco Use [...] Description 09/07/2025 1:15 PM EST Office Visit [facility] MEDICINE [address] [place] [address] Diamond Blake MD [address] [place] [address] 10/09/2025 2:00 PM EST Office Visit [facility] OPTOMETRY [address] [place] [address] Romaine, Lani, OD [address] [place] [address] 11/23/2025 3:00 PM EST Office Visit [facility] ADULT DENTAL [address] [place] [address] Yisel Griffith documented as of this encounter Visit Diagnoses Diagnosis Hypertension, unspecified type documented in this encounter Additional Health Concerns Assessment Noted Time PHQ-9 Depression Total Score: 15 023 2:22 PM EST documented as of this encounter Care Teams Trenching Machine Operator Relationship Specialty Start Date End Date Diamond Blake MD [address] [place] [address] PCP - General Internal Medicine 06/30/23 Zechariah Bradley Workforce Development SpecialistDie Cast Supervisor 03/23/24 documented as of this encounter
--- OUTSIDE RECORDS SUMMARY | 2025-07-07 10:06 | XMS_ITS | Encounter Summary ---
Author Organization [employer] Address [address] [place] [address] [address] [place] [address] Care Team Providers Care Coverstitch Binder Name Role Phone Diamond Blake MD Primary Care Pro vider Reason for Visit * Reason Onset Date Comments Med Refill 07/07/2023 Encounter Details Date Type Department Care Team (Late st Contact Info) Description 07/07/2023 Refill [facility] MED[facility]INE [address] [place] [address] Kailash Trevizo AGNP Severe chronic obstructive pulmonary [...] Description 09/07/2025 1:15 PM EST Office Visit [facility] [address] [place] [address] Diamond Blake MD [address] [place] [address] 10/09/2025 2:00 PM EST Office Visit [facility] OPTOMETRY [address] [place], [place] [phone] Romaine, Lani, OD [address] [place] [address] 11/23/2025 3:00 PM EST Office Visit [facility] ADULT DENTAL [address] [place] [address] Yisel Griffith documented as of this encounter Visit Diagnoses Diagnosis Severe chronic obstructive pulmonary disease (CMS/HCC) Chronic airway obstruction, not elsewhere classified Hypertension, unspecified type Hyperlipidemia, unspecified hyperlipidemia type documented in this encounter Additional Health Concerns Assessment Noted Time PHQ-9 Depression Total Score: 15 023 2:22 PM EST documented as of this encounter Care Teams Coverstitch Binder Relationship Specialty Start Date End Date Diamond Blake MD [address] [place], [place] [phone] PCP - General Internal Medicine 06/30/23 Zechariah Bradley Director Credit RiskShip Captain 03/23/24 documented as of this encounter
--- OUTSIDE RECORDS SUMMARY | 2025-07-07 10:06 | XMS_ITS | Encounter Summary ---
Author Organization [employer] Address [address] [place] [address] 7 [place] [address] Care Team Providers Care Gasoline Tractor Operator Name Role Phone Diamond Blake MD Primary Care Pro vider Reason for Visit * Reason Onset Date Comments Med Refill 07/07/2023 Encounter Details Date Type Department Care Team (Late st Contact Info) Description 07/07/2023 Refill [facility] CHC MED & PEDS [address] [place] [address] Lay Avila MD [address] [place] [address] Social History Tobacco Use Types Packs/Day Years [...] Department Care Team (Late Contact Info) Description 09/07/2025 1:15 PM EST Office Visit [facility] MEDICINE [address] [place] [address] Diamond Blake MD [address] [place] [address] 10/09/2025 2:00 PM EST Office Visit [facility] OPTOMETRY [address] [place], [place] [phone] Romaine, Lani, OD [address] [place] [address] 11/23/2025 3:00 PM EST Office Visit [facility] ADULT DENTAL [address] [place], [place] [phone] Yisel Griffith documented as of this encounter Visit Diagnoses Not on filedocumented in this encounter Additional Health Concerns Assessment Noted Time PHQ-9 Depression Total Score: 15 023 2:22 PM EST documented as of this encounter Care Teams Gasoline Tractor Operator Relationship Specialty Start Date End Date Diamond Blake MD [address] [place], [place] [phone] PCP - General Internal Medicine 06/30/23 Zechariah Bradley Prototype SewerCooker Casing 03/23/24 documented as of this encounter
--- OUTSIDE RECORDS SUMMARY | 2025-07-07 10:06 | XMS_ITS | Encounter Summary ---
Author Organization [employer] Address [address] 7t [place] [address] Care Team Providers Care Medicine Teacher Name Role Phone Diamond Blake MD Primary Care Pro vider Reason for Visit * Reason Comments Med Refill Encounter Details Date Type Department Care Team ([facility] st Contact Info) Description 04/27/2025 Refill [facility] [address] [place] [address] Elizabeth Pires MD [address] [place] [address] Mild intermittent asthma with acute exacerbation Social History Tobacco Use Types Packs/Day Years [...] Description 09/07/2025 1:15 PM EST Office Visit [facility] [address] [place] [address] Diamond Blake MD [address] [place] [address] 10/09/2025 2:00 PM EST Office Visit [facility] OPTOMETRY [address] [place] [address] Romaine, Lani, OD [address] [place] [address] 11/23/2025 3:00 PM EST Office Visit [facility] ADULT DENTAL [address] [place] [address] Yisel Griffith documented as of this encounter Visit Diagnoses Diagnosis Mild intermittent asthma with acute exacerbation documented in this encounter Additional Health Concerns Assessment Noted Time PHQ-9 Depression Total Score: 14 024 9:42 AM EDT documented as of this encounter Care Teams Medicine Teacher Relationship Specialty Start Date End Date Diamond Blake MD [address] [place] [id number] PCP - General Internal Medicine 06/30/23 Zechariah Bradley Criminal Research SpecialistStable Cleaner 03/23/24 documented as of this encounter
--- OUTSIDE RECORDS SUMMARY | 2025-07-07 10:06 | XMS_ITS | Encounter Summary ---
Author Organization [employer] Address [address] [place] [address] 7 [place] [address] Care Team Providers Care .Net Architect Name Role Phone Diamond Blake MD Primary Care Pro vider Reason for Visit * Reason Onset Date Comments Med Refill 07/08/2023 Encounter Details Date Type Department Care Team (Late st Contact Info) Description 07/08/2023 Refill [facility] [address] [place] [address] Diamond Blake MD [address] [place] [address] Severe chronic obstructive pulmonary disease (CMS/HCC); Hypertension, [...] Description 09/07/2025 1:15 PM EST Office Visit [facility] [address] [place] [address] Diamond Blake MD [address] [place], [place] [phone] 10/09/2025 2:00 PM EST Office Visit [facility] OPTOMET[facility] [address] [place], [place] [phone] Romaine, Lani, OD 230 [place] [address] 11/23/2025 3:00 PM EST Office Visit [facility] ADULT DENT[facility] [address] [place] [address] Yisel Griffith documented as of this encounter [...] documented as of this encounter Care Teams .Net Architect Relationship Specialty Start Date End Date Diamond Blake MD [address] [place], [place] [phone] PCP - General Internal Medicine 06/30/23 Zechariah Bradley Finishing Lab TechnicianLabor Standards Director 03/23/24 documented as of this encounter
--- OUTSIDE RECORDS SUMMARY | 2025-07-07 10:06 | XMS_ITS | Encounter Summary ---
Author Organization [employer] Address [address] [facility] 7t [place] [address] Care Team Providers Care Willower Name Role Phone Diamond Blake MD Primary Care Pro vider Reason for Visit * Reason Comments Med Refill Encounter Details Date Type Department Care Team ([facility] st Contact Info) Description 10/24/2024 Refill [facility] [address] [place] [address] Diamond Blake MD [address] [place] [address] Social History Tobacco Use Types Packs/Day Years [...] Office Visit [facility] [address] [place] [address] Diamond Blake MD [address] [place] [address] 10/09/2025 2:00 PM EST Office Visit [facility] OPTOMETRY [address] [place] [address] Romaine, Lani, OD [address] [place] [address] 11/23/2025 3:00 PM EST Office Visit [facility] ADULT DENTAL [address] [place] [address] Yisel Griffith documented as of this encounter Visit Diagnoses Not on filedocumented in this encounter Additional Health Concerns Assessment Noted Time PHQ-9 Depression Total Score: 14 024 9:42 AM EDT documented as of this encounter Care Teams Willower Relationship Specialty Start Date End Date Diamond Blake MD [address] [place] [address] PCP - General Internal Medicine 06/30/23 Zechariah Bradley Senior EconomistInhalation Therapy Teacher 03/23/24 documented as of this encounter
--- OUTSIDE RECORDS SUMMARY | 2025-07-07 10:06 | XMS_ITS | Encounter Summary ---
Author Organization [employer] Address [address] [place] [address] 7 [place] [address] Care Team Providers Care Mud Boss Name Role Phone Diamond Blake MD Primary Care Pro vider Reason for Visit * Reason Onset Date Comments Med Refill 07/07/2023 Encounter Details Date Type Department Care Team (Late st Contact Info) Description 07/07/2023 Refill [facility] [address] [place] [address] Lay Avila MD [address] [place] [address] Social History Tobacco Use Types Packs/Day Years [...] Description 09/07/2025 1:15 PM EST Office Visit [facility] MEDICINE [address] [place] [address] Diamond Blake MD [address] [place] [address] 10/09/2025 2:00 PM EST Office Visit [facility] OPTOMETRY [address] [place], [place] [phone] Romaine, Lani, OD [address] [place] [address] 11/23/2025 3:00 PM EST Office Visit [facility] ADULT DENTAL [address] [place], [place] [phone] Yisel Griffith documented as of this encounter Visit Diagnoses Not on filedocumented in this encounter Additional Health Concerns Assessment Noted Time PHQ-9 Depression Total Score: 15 023 2:22 PM EST documented as of this encounter Care Teams Mud Boss Relationship Specialty Start Date End Date Diamond Blake MD [address] [place], [place] [phone] PCP - General Internal Medicine 06/30/23 Zechariah Bradley Metal MoulderAmpoule Washing Machine Operator 03/23/24 documented as of this encounter
--- OUTSIDE RECORDS SUMMARY | 2025-07-07 10:06 | XMS_ITS | Encounter Summary ---
Author Organization [employer] Address [address] [place] [address] 7 [place] [address] Care Team Providers Care Carving Machine Operator Name Role Phone Diamond Blake MD Primary Care Pro vider Reason for Visit * Reason Onset Date Comments Med Refill 07/07/2023 Encounter Details Date Type Department Care Team (Late st Contact Info) Description 07/07/2023 Refill [facility] MED & PEDS [address] [place] [address] Nava Moss MD [address] [place] [address] Severe chronic obstructive pulmonary disease (CMS/HCC) Social [...] 1:15 PM EST Office Visit [facility] MEDICINE [address] [place] [address] Diamond Blake MD [address] [place], [place] [phone] 10/09/2025 2:00 PM EST Office Visit [facility] OPTOMETRY [address] [place], [place] [phone] Romaine, Lani, OD [address] [place] [address] 11/23/2025 3:00 PM EST Office Visit [facility] ADULT DENTAL [address] [place], [place] [phone] Yisel Griffith documented as of this encounter Visit Diagnoses Diagnosis Severe chronic obstructive pulmonary disease (CMS/HCC) Chronic airway obstruction, not elsewhere classified documented in this encounter Additional Health Concerns Assessment Noted Time PHQ-9 Depression Total Score: 15 023 2:22 PM EST documented as of this encounter Care Teams Carving Machine Operator Relationship Specialty Start Date End Date Diamond Blake MD [address] [place], [place] [phone] PCP - General Internal Medicine 06/30/23 Zechariah Bradley Earth BurnerTechnical Healthcare Consultant 03/23/24 documented as of this encounter
--- OUTSIDE RECORDS SUMMARY | 2025-07-07 10:06 | XMS_ITS | Encounter Summary ---
Author Organization [employer] Address [address] [facility] 7t [place] [address] Care Team Providers Care Technician Helper Instrument Name Role Phone Diamond Blake MD Primary Care Pro vider Reason for Visit * Reason Comments Med Refill Encounter Details Date Type Department Care Team ([facility] st Contact Info) Description 06/08/2025 Refill [facility] [address] [place] [address] Diamond Blake MD [address] [place] [address] Mild intermittent asthma with acute exacerbation Social [...] Description 09/07/2025 1:15 PM EST Office Visit [facility] [address] [place] [address] Diamond Blake MD [address] [place] [address] 10/09/2025 2:00 PM EST Office Visit [facility] OPTOMETRY [address] [place] [address] Lani Gavin, OD 230 [place] [address] 11/23/2025 3:00 PM EST Office Visit [facility] ADULT DENTAL [address] [place] [address] Yisel Griffith documented as of this encounter Visit Diagnoses Diagnosis Mild intermittent asthma with acute exacerbation documented in this encounter Additional Health Concerns Assessment Noted Time PHQ-9 Depression Total Score: 14 024 9:42 AM EDT documented as of this encounter Care Teams Technician Helper Instrument Relationship Specialty Start Date End Date Diamond Blake MD [address] [place] [id number] PCP - General Internal Medicine 06/30/23 Zechariah Bradley Brand AmbassadorPortable Sawmill Operator 03/23/24 documented as of this encounter
--- OUTSIDE RECORDS SUMMARY | 2025-07-07 10:06 | XMS_ITS | Clinical Summary ---
Author Organization [email or web address] Address [address] [place] [address] Care Team Providers Care Supervisor Throwing Department Name Role Phone Diamond Blake MD Primary [...] in the morning. 1 kit 023 Active montelukast (Singulair) 10 MG tabletIndication s:Severe [...] DRY SKIN 385 g 3 025 Active levothyroxine (Synthroid, Levoxyl) 125 MCG tabletIndication s:Hypothyroidism , unspecified type TAKE 1 TABLET BY MOUTH EVERY MORNING BEFORE BREAKFAST 90 tablet 1 025 Active magnesium oxide (Mag-Ox) 400 (240 Mg) MG tablet 025 Active lidocaine (Lidoderm) 5 % patchIndications :Chronic pain of both knees,Acute pain of left shoulder APPLY 1 PATCH TOPICALLY TO SKIN, LEAVE ON FOR 12 HOURS AND OFF FOR 12 HOURS DIRECTED 30 patch 2 025 Active albuterol (Ventolin HFA) 108 (90 Base) MCG/ACT inhalerIndicatio ns:Mild intermittent asthma with acute exacerbation INHALE 2 PUFFS BY MOUTH EVERY 4 HOURS NEEDED FOR WHEEZING OR SHORTNESS OF BREATH 18 g 1 025 Active memantine (Namenda) 10 MG tablet Take 1 tablet (10 mg) by mouth 2 times daily. 60 tablet 5 025 2025 Active Tirzepatide-Weig ht Management (Zepbound) 12.5 MG/0.5ML solution auto-injectorInd ications:Obesity (BMI 30-39.9) Inject 0.5 mL (12.5 mg) as directed 1 (one) time per week. INJECT ONE PEN (=12.5 MG) SUBCUTANEOUSLY ONCE A WEEK 2 mL 025 Active cholecalciferol (D3 Super Strength) 50 MCG (2000 UT) capsule TAKE 1 CAPSULE BY MOUTH EVERY MORNING 90 capsule 1 025 Active predniSONE (Deltasone) 20 MG tabletIndication s:Acute exacerbation of COPD with asthma ([facility]) 2 tabs po daily for 5 days 10 tablet 025 Active atorvastatin (Lipitor) 10 MG tabletIndication s:Hyperlipidemia , unspecified hyperlipidemia type TAKE 1 TABLET BY MOUTH EVERY DAY 90 tablet 025 Active D3 Super Strength 50 MCG (2000 UT) capsule TAKE 1 CAPSULE BY MOUTH EVERY MORNING 90 capsule 1 025 2024 Discontinued( Reorder (will not trigger notification to Pharmacy)) atorvastatin (Lipitor) 10 MG tabletIndication s:Hyperlipidemia , unspecified hyperlipidemia type TAKE 1 TABLET BY MOUTH EVERY DAY 90 tablet 025 2024 Discontinued( Reorder (will not trigger notification to Pharmacy)) Tirzepatide-Weig ht Management (Zepbound) 10 MG/0.5ML solution auto-injectorInd ications:Obesity (BMI 30-39.9) Inject 0.5 mL (10 mg) under the skin 1 (one) time per week. Increase dose monthly 2 mL 025 2024 Discontinued Active Problems Problem Noted Date Diagnosed Date Dementia 03/04/2025 Trigger finger 08/03/2024 Chronic right-sided low back pain with right-nicko [...] in her new apartment. We had the [facility]SD department come up and talk with her. [...] shortly cant remember date. Eye exam: Sees [facility] eye care. Dental home: Had [facility] dental appointment that she missed. She is now going to [facility]. Localized swelling of both lower [...] w/Reflex to FT4 0.40 - 4.50 mIU/L 7.65 High Component Ref Range & Units 1 mo [...] <150 mg/dL 227 High 142 174 High Comment: If a non-fasting specimen was collected, consider repeat triglyceride testing on a fasting specimen if clinically indicated. Aidee et al. J. of Clin. Lipidol. 2015;9:129-169. LDL Cholesterol mg/dL (calc) 166 High 151 High CM 138 High CM Comment: Reference range: <100 Desirable range <100 mg/dL for primary prevention; <70 mg/dL for patients with CHD or diabetic patients with > or = 2 CHD risk factors. LDL-C is now calculated using the Jay calculation, which is a validated novel method providing better accuracy than the Friedewald equation in the estimation of LDL-C. Eb LOPEZ et al. [place]. 2013;310(19): 4220-5482 (http://education.Alumnize/faq/SEM409) Chol/HDLC Ratio <5.0 (calc) 4.1 3.8 4.0 Non-HDL Cholesterol <130 mg/dL (calc) 204 High 178 High CM 169 High CM The 10-year ASCVD risk score (Jillian [...] 1 yr ago Cholesterol, Total <200 mg/dL 241 High 226 High HDL Cholesterol > OR = 50 mg/dL 63 57 Triglycerides <150 mg/dL 142 174 High LDL Cholesterol mg/dL (calc) 151 High 138 High CM Comment: Reference range: <100 Patient has had active lipid panel order since 12/26, reminded patient of active lab orders. She seemed confused and said she went to get them drawn before. I went down to the lab with her to see if there was an error. The laborer construction or leak gang was able to find the lab orders. I discussed with patient if there was an issue with her blood work someone would contact her to set up and appointment. Osteopenia 04/17/2017 Vitamin D deficiency 04/17/2017 Resolved Problems Problem Noted Date Diagnosed Date Resolved Date Black tongue 08/18/2023 10/09/2023 Anemia 04/17/2017 08/18/2023 Encounters Date Type Department Care Team Description 06/29/2025 Telephone [facility] MEDICINE [address] [place] [phone] Diamond Blake MD Prior Authorization 06/28/2025 Refill [facility] CHC MED & PEDS [address] [place] [address] Diamond Blake MD Hyperlipidemia, unspecified hyperlipidemia type 06/26/2025 9:15 AM EDT Office Visit [facility] MEDICINE [address] [place] [phone] Elizabeth Pires MD Acute exacerbation of COPD with asthma ([facility]) 06/26/2025 Travel 06/14/2025 Refill [facility] MEDICINE [address] [place] [phone] Diamond Blake MD Obesity (BMI 30-39.9) 06/14/2025 Refill [facility] MED & PEDS [address] [place] [address] Pradeep Deluna MD 06/08/2025 Refill [facility] WALK-IN CENTER [address] [place] [phone] Diamond Blake MD Mild intermittent asthma with acute exacerbation 06/02/2025 10:00 AM EDT Office Visit [facility] MEDICINE [address] [place] [phone] Diamond Blake MD Melasma (Primary Dx); Hypertension, unspecified type; Class 3 severe obesity due to excess calories with body mass index (BMI) of 40.0 to 44.9 in adult; Routine adult health maintenance; Dementia, unspecified dementia severity, unspecified dementia type, unspecified whether behavioral, psychotic, or mood disturbance or anxiety ([facility]) 06/02/2025 Travel 06/01/2025 Telephone [facility] MEDICINE [address] [place] [phone] Diamond Blake MD Chart Prep 05/24/2025 Refill [facility] MEDICINE [address] [place] [phone] Diamond Blake MD 05/23/2025 Orders Only [facility] MEDICINE [address] [place] [address] [phone] Diamond Blake MD Obesity (BMI 30-39.9) (Primary Dx) 05/22/2025 Refill [facility] MEDICINE [address] [place] [address] [phone] Diamond Blake MD Obesity (BMI 30-39.9); Prediabetes 05/19/2025 Refill [facility] CHC MED & PEDS [address], [place] [phone] Diamond Blake MD 05/15/2025 Results Follow-Up [facility] MEDICINE [address] [place] [address] Diamond Blake MD BI Mammogram Screening Tomosynthesis Bilateral 05/10/2025 2:00 PM EDT Office Visit [facility] ADULT DENTAL [address] [place] [phone] Marjorie Turk 05/08/2025 Telephone [facility] ADULT DENTAL [address] [place] [address] [phone] Marjorie Turk 05/04/2025 Orders Only [facility] MEDICINE [address] [place] [address] Diamond Blake MD Osteopenia after menopause (Primary Dx); Primary hyperparathyroidism ([facility]) 05/01/2025 Refill [facility] WALK-IN CENTER [address] [place] [phone] Elizabeth Pires MD Mild intermittent asthma with acute exacerbation 04/27/2025 Refill [facility] WALK-IN CENTER [address] [place] [phone] Elizabeth Pires MD Mild intermittent asthma with acute exacerbation 04/13/2025 Refill [facility] MEDICINE [address] [place] [address] Diamond Blake MD Obesity (BMI 30-39.9); Prediabetes from Last 3 Months Immunizations Immunization Administration [...] Sign Reading Time Taken Comments Blood Pressure 120/80 06/26/2025 9:08 AM EDT Pulse 62 06/26/2025 9:08 AM EDT Temperature 36.2 C (97.1 F) 06/26/2025 9:08 AM EDT Respiratory Rate 20 06/26/2025 9:08 AM EDT Oxygen Saturation 98% 06/26/2025 9:08 AM EDT Inhaled Oxygen Concentration - - Weight 83.5 kg (184 lb) 06/26/2025 9:08 AM EDT Height 157.5 cm (5' 2 ) 06/26/2025 9:08 AM EDT Body Mass Index 33.65 06/26/2025 9:08 AM EDT Plan of Treatment Upcoming Encounters Date Type Department Care Team (Late st Contact Info) Description 09/07/2025 1:15 PM EST Office Visit [facility] MEDICINE [address] [place] [address] Diamond Blake MD [address] [place] [address] 10/09/2025 2:00 PM EST Office Visit [facility] OPTOMETRY [address] [place] [address] Romaine, Lani, OD [address] [place] [address] 11/23/2025 3:00 PM EST Office Visit [facility] ADULT DENTAL [address] [place] [address] Yisel Griffith Health Maintenance Due Date Last Done Comments CT Colonography 1960 FIT DNA/Cologuard 1960 FIT 1960 FOBT 1960 Sigmoidoscopy 1960 Depression Monitoring 02/27/2025 08/30/2024, 024 COVID-19 Vaccine ( season) 2025 08/30/2024, 08/02/2024, 12/30/2023, Additional history exists Influenza Vaccine (#1) 2025 , 08/02/2024, 08/18/2023, Additional history exists Colonoscopy 07/21/2025 07/21/2023 Colorectal Cancer Screening 07/21/2025 Dental X-Ray: Bitewings 07/30/2025 07/29/20, 05/01/2023, 12/10/2017 Alcohol/Substance Use Screening 08/30/2025 08/30/2024 Diabetes: Hemoglobin A1C 09/05/2025 024, 02/19/2024, 08/28/2023, Additional history exists Dental Oral Exam 11/11/2025 05/10/2025, 08/2024, 05/01/2023, Additional history exists Dental Prophylaxis 11/11/2025 05/10/2025, 1 , 05/01/2023 SDOH Screening 03/02/2026 03/02/2025 Dental X-Ray: Full Mouth 05/02/2026 023, 12/10/2017, 11/17/2017 Mammogram 05/04/2026 05/04/2025, 0306/2024, 01/02/2023, Additional history exists Tobacco Screening 06/26/2026 06/26/2025 DTaP/Tdap/Td Vaccines (2 - Td or Tdap) 04/17/2027 04/17/2017 Cervical Cancer Screening 01/27/2029 HPV/Cotest 01/27/2029 01/28/2024 Pap Smear 01/27/2029 01/28/2024 Lipid Panel 09/05/2029 09/05/2024, 05/0 12/2023, 08/28/2023, Additional history exists Zoster Vaccines Completed 05/16/2022, 02/17/2022 Pneumococcal Vaccine: 50+ Years Completed 08/18/2023 Hepatitis C Screening Completed 08/28/2023, 06/28/2 023 RSV Patients and Patients Aged 60 years or older Completed 12/30/2023 HIB Vaccines Aged Out No longer eligi [...] Procedure Name Priority Date/Time Associated Diagnosis Comments POCT INFLUENZA B Routine 06/26/2025 9:31 AM EDT Acute exacerbation of COPD with asthma ([facility]) POCT INFLUENZA A Routine 06/26/2025 9:31 AM EDT Acute exacerbation of COPD with asthma ([facility]) POCT RAPID COVID ANTIGEN Routine 06/26/2025 9:30 AM EDT Acute exacerbation of COPD with asthma ([facility]) PERIODIC ORAL EVALUATION - ESTABLISHED PATIENT Routine 05/10/2025 2:00 PM EDT CASE PRESENTATION, DETAILED AND EXTENSIVE TREATMENT PLANNING Routine 05/10/2025 2:00 PM EDT INTRAORAL - PERIAPICAL FIRST RADIOGRAPHIC IMAGE Routine 05/10/2025 2:00 PM EDT PROPHYLAXIS - ADULT Routine 05/10/2025 2 :00 PM EDT BI MAMMOGRAM SCREENING TOMOSYNTHESIS BILATERAL Routine 05/04/2025 1:40 PM EDT XR DEXA APPENDICULAR SKELETON Routine 05/04/2025 1:30 PM EDT HEMOGLOBIN A1C Routine 09/05/2024 8:25 AM EST Annual physical exam LIPID PANEL, STANDARD Routine 09/05/2024 8:25 AM EST Annual physical exam BITEWINGS - 4 RADIOGRAPHIC IMAGES Routine 07/29/2024 10:00 AM EDT HPV MRNA E6/E7 REFLEX TO HPV 16, 18/45 Routine 01/28/2024 11:09 AM EDT PAP SMEAR Routine 01/28/2024 11:09 AM EDT Cervical cancer screening HEPATITIS C AB W/REFL TO HCV RNA, QN, PCR Routine 08/28/2023 9:03 AM EST Annual physical exam HM COLONOSCOPY Routine 07/21/2023 INTRAORAL - COMPLETE SERIES OF RADIOGRAPHIC IMAGES Routine 05/01/2023 2:00 PM EDT from Last 3 Months or Most Recently Relevant to Health Maintenance Results * POCT Influenza B manually resulted (06/26/2025 9:31 AM EDT) Pathologist [facility] Rapid Influenza B Ag Negative Negative, Indeterminate QC Media Lot # [id number] Lot# Expiration Date Swab 06/26/2025 9:31 AM EDT us Elizabeth Pires MD POINT OF CARE TEST ENTER/E DIT ORDERABLES Final Result * POCT Influenza A manually resulted (06/26/2025 9:31 AM EDT) [facility] Rapid Influenza A Ag Negative Negative, Indeterminate QC Media Lot # [id number] Lot# Expiration Date Swab Nasopharyngeal structure / Unknown 06/26/2025 9:31 AM EDT us Elizabeth Pires MD POINT OF CARE TEST ENTER/E DIT ORDERABLES Final Result * POCT Rapid COVID Ag (06/26/2025 9:30 AM EDT) [facility] Rapid COVID Ag Negative QC Media Lot # [id number] Lot# Expiration Date Swab 06/26/2025 9:30 AM EDT Elizabeth Pires MD POINT OF CARE TEST ENTER/E DIT ORDERABLES Final Result * BI Mammogram Screening Tomosynthesis Bilateral (05/04/2025 1:40 PM EDT) Anatomical Region Laterality Modality Breast Bilateral Mammography 05/04/2025 1:40 PM EDT Narrative 05/15/2025 4:33 PM EDT [facility] [address] [place] [address] Mammography Report Signed Patient: Diamond Grider MR#: [id number] : 1960 Acct:[id number] Age/Sex: 64 / F ADM Date: 05/04/25 Loc: HO.MAMMO Attending Dr: Diamond Barry MD Ordering Physician: Diamond Blake MD Re sults: 1Negative Date of Service: 05/04/25 Follow Up: 1 Year From Orig ina Mammogram Procedure(s): MM tomosynthesis screening BI Accession Number(s): [id number] cc: Diamond Blake MD EXAMINATION: MM SCREENING DIGITAL BREAST TOMOSYNTHESIS, BILATERAL CLINICAL INFORMATION: Screening. Asymptomatic. COMPARISON: Mammography: Comparison is made with available priors TECHNIQUE: Digital breast mammography with tomosynthesis is performed in both the craniocaudal and mediolateral oblique views along with computer-aided detection (CAD). FINDINGS: There are scattered areas of fibroglandular [...] target due date for their next mammogram. Electronically signed by: Sepideh Doherty DO 05/15/2025 04:30 PM EDT RP Dictated By: Sepideh Doherty DO Signed By: <Electronically signed by Sepideh Doherty DO in OV> 05/15/25 1630 DD/ 1340 TD/TT: 05/04/25 1405 Clerk Guide: Procedure Note Donotuseinterpreter, Image - 05/15/2025 [facility] [address] [place] [address] Mammography Report Signed Patient: Diamond Grider EMR#: [id number] : 1960Acct:[id number] Age/Sex: 64 / FADM Date: 05/04/25 Loc: HO.MAMMO Attending Dr: Diamond Barry MD Ordering Physician: Diamond Blake sults: 1Negative Date of Service: 05/04/25Follow Up: 1 Year From Orig inal Mammogram Procedure(s): MM tomosynthesis screening BI Accession Number(s): [id number] cc: Diamond Blake MD EXAMINATION: MM SCREENING DIGITAL BREAST TOMOSYNTHESIS, BILATERAL CLINICAL INFORMATION: Screening. Asymptomatic. COMPARISON: Mammography: Comparison is made with available priors TECHNIQUE: Digital breast mammography with tomosynthesis is performed in both the craniocaudal and mediolateral oblique views along with computer-aided detection (CAD). FINDINGS: There are scattered areas of fibroglandular [...] target due date for their next mammogram. Electronically signed by: Sepideh Doherty DO 05/15/2025 04:30 PM EDT RP Dictated By: Sepideh Doherty DO Signed By: <Electronically signed by Sepideh Doherty DO in OV> 05/15/25 1630 DD/ 1340 TD/TT: 05/04/25 1405 Clerk Guide: Diamond Barry MD IMG BI PROCEDURES Final Result * XR DEXA APPENDICULAR SKELETON (05/04/2025 1:30 PM EDT) Anatomical Region Laterality Modality Abdomen Radiographic Sonja ging 05/04/2025 1:30 PM EDT Narrative 05/04/2025 2:41 PM EDT [facility] [address] [place] [address] Mammography Report Signed Patient: Diamond Grider MR#: [id number] : 1960 Acct:[id number] Age/Sex: 64 / F ADM Date: 05/04/25 Loc: HO.MAMMO Attending Dr: Diamond Barry MD Ordering Physician: Diamond Blake MD sults: Date of Service: 05/04/25 Follow Up: Procedure(s): XR DEXA appendicular skeleton Accession Number(s): [id number] cc: Diamond Blake MD EXAMINATION: DXA BONE DENSITY EXTREMITY HISTORY: M85.80 OSTEOPENIA TECHNIQUE: [employer] Dual energy absorptiometry (DEXA) of the lumbar spine, total left hip, femoral neck, and distal radius was performed. COMPARISON: Comparison is made with the prior examination dated 01/02/2023. FINDINGS: The bone mineral density of the lumbar spine is 1.111 g/cm2, corresponding to a T-score of -0.6, and a Z-score of 0.3. This is indicative of normal bone mineral density. This represents a BMD change of 5.1% compared to the prior exam. This is statistically significant. The bone mineral density of the left total hip is 0.977 g/cm2, corresponding to a T-score of -0.2, and a Z-score of 0.4. This is indicative of normal bone mineral density. This represents a BMD change of -7.2% compared to the prior exam. This is statistically significant. The bone mineral density of the left femoral neck is 0.862 g/cm2, corresponding to a T-score of -1.3, and a Z-score of -0.3. This is indicative of osteopenia. This represents a BMD change of 2.3% compared to the prior exam. The bone mineral density of the distal radius is 0.806 g/cm2, corresponding to a T-score of -0.8, and a Z-score of 0.6. This is indicative of normal bone mineral density. This represents a BMD change of 0.6% compared to the prior exam. This is not statistically significant. FRACTURE RISK: The FRAX index suggests a ten year probability of major osteoporotic fracture of 8.6%, and of hip fracture 0.4%. MM/XR DEXA appendicular skeleton IMPRESSION: Based on bone mineral density, and according to World Health Organization (WHO) criteria, the diagnosis is consistent with osteopenia. Statistically, 68% of repeat scans fall within 1 SD (+/- 0.010 g/cm2 for AP spine L1-L4) and 1 SD (+/- 0.012 g/cm2 for femur total) FRAX is a trademark of the [employer] for Metabolic Bone Disease, a World Health Organization (WHO) Collaborating Center. Electronically signed by: Sal Saldaña MD 05/04/2025 02:38 PM EDT Dictated By: Sal Saldaña MD Signed By: <Electronically signed by Sal Saldaña MD in OV> 05/04/25 1438 DD/ 1330 TD/TT: 05/04/25 1400 Clerk Guide: Procedure Note Donotuseinterpreter, Image - 05/04/2025 [facility] [address] [place] [address] [place] [address] Mammography Report Signed Patient: Diamond Grider EMR#: [id number] : 1960Acct:[id number] Age/Sex: 64 / FADM Date: 05/04/25 Loc: J[facility] Attending Dr: Diamond Barry MD Ordering Physician: Diamond Blakets: Date of Service: 05/04/25Follow Up: Procedure(s): XR DEXA appendicular skeleton Accession Number(s): [id number] cc: Diamond Blake MD EXAMINATION: DXA BONE DENSITY EXTREMITY HISTORY: M85.80 OSTEOPENIA TECHNIQUE: [employer] Dual energy absorptiometry (DEXA) of the lumbar spine, total left hip, femoral neck, and distal radius was performed. COMPARISON: Comparison is made with the prior examination dated 01/02/2023. FINDINGS: The bone mineral density of the lumbar spine is 1.111 g/cm2, corresponding to a T-score of -0.6, and a Z-score of 0.3. This is indicative of normal bone mineral density. This represents a BMD change of 5.1% compared to the prior exam. This is statistically significant. The bone mineral density of the left total hip is 0.977 g/cm2, corresponding to a T-score of -0.2, and a Z-score of 0.4. This is indicative of normal bone mineral density. This represents a BMD change of -7.2% compared to the prior exam. This is statistically significant. The bone mineral density of the left femoral neck is 0.862 g/cm2, corresponding to a T-score of -1.3, and a Z-score of -0.3. This is indicative of osteopenia. This represents a BMD change of 2.3% compared to the prior exam. The bone mineral density of the distal radius is 0.806 g/cm2, corresponding to a T-score of -0.8, and a Z-score of 0.6. This is indicative of normal bone mineral density. This represents a BMD change of 0.6% compared to the prior exam. This is not statistically significant. FRACTURE RISK: The FRAX index suggests a ten year probability of major osteoporotic fracture of 8.6%, and of hip fracture 0.4%. MM/XR DEXA appendicular skeleton IMPRESSION: Based on bone mineral density, and according to World Health Organization (WHO) criteria, the diagnosis is consistent with osteopenia. Statistically, 68% of repeat scans fall within 1 SD (+/- 0.010 g/cm2 for AP spine L1-L4) and 1 SD (+/- 0.012 g/cm2 for femur total) FRAX is a trademark of the [employer] for Metabolic Bone Disease, a World Health Organization (WHO) Collaborating Center. Electronically signed by: Sal Saldaña MD 05/04/2025 02:38 PM EDT RP Dictated By: Sal Saldaña MD Signed By: <Electronically signed by Sal Saldaña MD in OV> 05/04/25 1438 DD/ 1330 TD/TT: 05/04/25 1400 Clerk Guide: us Diamond Barry MD IMG XR PROCEDURES Edited Result - Final * Hemoglobin [...] patient sample. Estimated Average Glucose 117 mg/dL [facility] Comment:eAG = Estimated ave rage glucose which is %A1C expressed asaverage glucose, using the formula of the L1E-NyqhexdYzrjerq Glucose study (ADAG), Diabetes Care, Vol.31,#8,May. 2007 Blood Venous blood specimen / Unknown 09/05/2024 8:25 AM EST 09/05/2024 11:36 AM EST us Diamond Barry MD LAB BLOOD ORDERAB LES Final Result [facility] [address] [place] [phone] * Lipid Panel, Standard (09/05/2024 8:25 AM EST) Triglycerides 134 <150 mg/dL [facility] Comment:Desirable Triglyceri de: less than 150 mg/dLBorderline High Triglyceride 150-199 mg/dLHigh Triglyceride: 200-499 mg/dLVery High Triglyceride: greater than or equal to 5OO mg/dL Cholesterol 152 <200 mg/dL [facility] Comment:Desirable Cholestero l: less than 200 mg/dLBorderline High Cholesterol: 200-239 mg/dLHigh Cholesterol: greater than 239 mg/dL LDL Cholesterol Calculated 70 <100 mg/dL [facility] Comment:Desirable LDL: less than 100 mg/dLNear Optimal/Above Optimal LDL: 110- 129 mg/dLBorderline High LDL: 130-159 mg/dLHigh LDL: 160-189 mg/dLVery High LDL: greater than or equal to 190 mg/dL HDL Cholesterol 56 >40 mg/dL [facility] Comment:Desirable HDL: great er than 40 mg/dL Note: This HDL assay may give artificially low results in patients with liver disease. Blood Venous blood specimen / Unknown 09/05/2024 8:25 AM EST 09/05/2024 11:36 AM EST us Diamond Barry MD LAB BLOOD ORDERAB LES Final Result [facility] [address] [place] [address] [phone] * HPV mRNA E6/E7 w/Reflex to HPV Genotypes 16, 18/45 (01/28/2024 11:09 AM EDT) HPV nRNA E6/E7 Not Detected Not Detected [facility] Comment:Methodology: Transcr iption-Mediated AmplificationThis assay detects E6/E7 viral messenger RNA (mRNA) from 14high-risk HPV types (16,18,31,33,35,39,45,51,52,56,58,59,66,68).Cervical sources are required for HPV testing.If a vaginal source from a patient who has had atotal hysterectomy with removal of cervix wassubmitted, please contact the testing laboratoryfor alternative testing options.For additional information, please refer tohttp://education.HowDo/faq/CTW807d1(This link if provided for information/educational purposes only.)THIS TEST WAS PERFORMED AT:[facility] [place] [phone] CHANG MD HPV mRNA E6/E7 TNP [facility] HPV 16 RNA [facility] HPV 18/45 RNA [facility] 01/28/2024 11:0 9 AM EDT 02/02/2024 12:00 PM EDT Alyce Gallo CNM LAB CYTOLOGY ORDERABLES F inal Result [facility] [address] [place] [address] [phone] * Pap Smear (01/28/2024 11:09 AM EDT) Swab Cervix uteri structure / Unknown 01/28/2024 11:09 AM EDT 02/02/2024 12:00 PM EDT Narrative [facility] - 02/17/2024 6:59 AM EDT ----- ------- Name: Siddharthgina YorkDiamond Age/Sex: 63/F : 1960 Unit#: [id number] Attend Dr: ALYCE GALLO CNM Re01/28/24 Status: DEP REF Location: HO.HHCLNP Disch: ----- ------- SPEC : [id number] RECD: 02/02/24 STATUS: KEYONA STONER NUM: [id number] SELEEN: 01/28/24 [facility] DR: ALYCE GALLO Bela ENTERED: 02/02/24 SP TYPE: Pap Smr OTHR DR: ORDERED: Pap Smear Interpretation Satisfactory for evaluation. Atrophic. Negative for intraepithelial lesion or malignancy. HPV mRNA E6/E7: NOT DETECTED This assay detects E6/E7 viral messenger RNA (mRNA) from 14 high-risk HPV types (16, 18, 31, 33, 35, 39, 45, 51, 52, 56, 58, 59, 66, 68) HPV testing performed by [facility], [place], [place]. See reference laboratory portion of the EMR for entire report. Clinical Information LMP: Postmenopausal Previous PAP test: Unknown date/findings Material Received ThinPrep-Vaginal/Cervical ----- ------- Signed (signature on file) RIANNA Han ([facility]) 02/17/24 0659 ----- ------- END OF REPORT Alyce ROTH LAB CYTOLOGY ORDERABLES F inal Result Performing Organization Address [facility]/ZIP Co de Phone Number [facility] [address] [place] [address] [phone] * Hepatitis C Antibody with Reflex to HCV, RNA, Quantitative, Real-Time PCR (08/28/2023 9:03 AM EST) Hepatitis C Antibody Nonreactive Nonreactive [facility] Comment:Antibodies to HCV no t detected; does not exclude early acuteHCV infection. Blood Venous blood specimen / Unknown 08/28/2023 9:03 AM EST 08/28/2023 11:14 AM EST Diamond Barry MD LAB BLOOD ORDERAB LES Final Result Performing Organization Address [facility]/ZIP Co de Phone Number [facility] [address] [place] [address] [phone] * (ABNORMAL) Colonoscopy (07/21/2023) Colonoscopy Abnormal( A) Normal Comment:polyps( 4-5 mm sessile polyp and 6-8 mm sessile polyps s/p removal-Bx : (mild hyperplastic changes) ,internal hemorrhoids,diverticular disease Repeat Colonoscopy in 1-2 years due to fair prep Narrative Diamond Blake MD - 07/21/2023 polyps( 4-5 mm sessile polyp and 6-8 mm sessile polyps s/p removal-Bx : (mild hyperplastic changes) ,internal hemorrhoids,diverticular disease Repeat Colonoscopy in 1-2 years due to fair prep Historical Provider HEALTH MAINTENANCE Final Result from Last 3 Months or Most Recently Relevant to Health Maintenance Insurance [employer]M OPT[employer] (HMO D-SNP) [facility] Care Teams Supervisor Throwing Department Relationship Specialty Start Date End Date Diamond Blake MD [address] [place] [address] PCP - General Internal Medicine 06/30/23 Zechariah Bradley Patient Care ProviderGame Technician 03/23/24
--- OUTSIDE RECORDS SUMMARY | 2025-07-07 10:06 | XMS_ITS | Encounter Summary ---
Author Organization [employer] Address [address] [facility] 7t [place] [address] Care Team Providers Care Patrol Captain Name Role Phone Kailash Trevizo Primary Care Provider Unavail able Diamond Blake MD Primary Care Pro vider Reason for Visit * Reason Comments Med Refill Encounter Details Date Type Department Care Team (Late st Contact Info) Description 02/11/2023 Refill [facility] [address] [place] [address] Otoniel Bella MD [address] [place] [address] Chronic pain of both knees; Acute pain [...] Description 09/07/2025 1:15 PM EST Office Visit [facility] [address] [place] [address] Diamond Blake MD [address] [place], [place] [phone] 10/09/2025 2:00 PM EST Office Visit [facility] [address] [place], [place] [phone] Lani Gavin, OD 230 [place], [place] [phone] 11/23/2025 3:00 PM EST Office Visit [facility] [address] [place], [place] [phone] Yisel Griffith documented as of this encounter Visit Diagnoses Diagnosis Chronic pain of both knees Acute pain of left shoulder documented in this encounter Additional Health Concerns Assessment Noted Time PHQ-9 Depression Total Score: 15 12/12/ 023 2:22 PM EST documented as of this encounter Care Teams Patrol Captain Relationship Specialty Start Date End Date Kailash Trevizo AGNP PCP - General Family Medicine 11/13/22 06/29/23 Diamond Blake MD [address] [place], [place] [phone] PCP - General Internal Medicine 06/30/23 Zechariah Bradley Nurse SaneYoghurt Maker 03/23/24 documented as of this encounter
--- OUTSIDE RECORDS SUMMARY | 2025-07-07 10:06 | XMS_ITS | Encounter Summary ---
Author Organization [employer] Address 75 [facility] 7t [place] [address] Care Team Providers Care Housekeeping Room Inspector Name Role Phone Diamond Blake MD Primary Care Pro vider Reason for Visit * Reason Comments Med Refill Encounter Details Date Type Department Care Team ([facility] st Contact Info) Description 01/29/2024 Refill [facility] [address] [place] [address] Diamond Blake MD 230 [place] [address] Social History Tobacco Use Types Packs/Day Years [...] 09/07/2025 1:15 PM EST Office Visit [facility] [address] [place] [address] Diamond Blake MD [address] [place] [address] 10/09/2025 2:00 PM EST Office Visit [facility] [address] [place] [address] Romaine, Lani, OD [address] [place] [address] 11/23/2025 3:00 PM EST Office Visit [facility] [address] [place] [address] Yisel Griffith documented as of this encounter Visit Diagnoses Not on filedocumented in this encounter Additional Health Concerns Assessment Noted Time PHQ-9 Depression Total Score: 12 023 11:15 AM EST documented as of this encounter Care Teams Housekeeping Room Inspector Relationship Specialty Start Date End Date Diamond Blake MD [address] [place] [address] PCP - General Internal Medicine 06/30/23 Zechariah Bradley Wad Printing Machine OperatorCage Manager 03/23/24 documented as of this encounter
--- OUTSIDE RECORDS SUMMARY | 2025-07-07 10:06 | XMS_ITS | Encounter Summary ---
Author Organization [employer] Address 75 [facility] 7t [place] [address] Care Team Providers Care Wharfmaster Name Role Phone Diamond Blake MD Primary Care Pro vider Reason for Visit * Reason Comments Med Refill Encounter Details Date Type Department Care Team ([facility] st Contact Info) Description 10/25/2024 Refill [facility] [address] [place] [address] Diamond Blake MD 230 [place] [address] Hypertension, unspecified type Social History Tobacco Use [...] Description 09/07/2025 1:15 PM EST Office Visit [facility] [address] [place] [address] Diamond Blake MD [address] [place] [address] 10/09/2025 2:00 PM EST Office Visit [facility] [address] [place] [address] Lani Gavin, OD 230 [place] [address] 11/23/2025 3:00 PM EST Office Visit [facility] [address] [place] [address] Yisel Griffith documented as of this encounter Visit Diagnoses Diagnosis Hypertension, unspecified type documented in this encounter Additional Health Concerns Assessment Noted Time PHQ-9 Depression Total Score: 14 024 9:42 AM EDT documented as of this encounter Care Teams Wharfmaster Relationship Specialty Start Date End Date Diamond Blake MD [address] [place] [address] PCP - General Internal Medicine 06/30/23 Zechariah Bradley Yard LaborerSet O Type Operator 03/23/24 documented as of this encounter
--- OUTSIDE RECORDS SUMMARY | 2025-07-07 10:06 | XMS_ITS | Encounter Summary ---
Author Organization [employer] Address 75 [facility] 7t [place] [address] Care Team Providers Care Scientific Aide Name Role Phone Diamond Blake MD Primary Care Pro vider Reason for Visit * Reason Onset Date Comments Med Refill 07/07/2023 Encounter Details Date Type Department Care Team (Late st Contact Info) Description 07/07/2023 Refill [facility] 230 [place] [address] Otoniel Bella MD [address] [place] [address] Chronic pain of both knees; Acute pain [...] Description 09/07/2025 1:15 PM EST Office Visit [facility] [address] [place] [address] Diamond Blake MD [address] [place], [place] [phone] 10/09/2025 2:00 PM EST Office Visit [facility] [address] [place], [place] [phone] Romaine, Lani, OD 230 [place] [address] 11/23/2025 3:00 PM EST Office Visit [facility] ADULT DENTAL 230 [place], [place] [phone] Yisel Griffith documented as of this encounter Visit Diagnoses Diagnosis Chronic pain of both knees Acute pain of left shoulder documented in this encounter Additional Health Concerns Assessment Noted Time PHQ-9 Depression Total Score: 15 12/12/ 023 2:22 PM EST documented as of this encounter Care Teams Scientific Aide Relationship Specialty Start Date End Date Diamond Blake MD [address] [place], [place] [phone] PCP - General Internal Medicine 06/30/23 Zechariah Bradley Operations ProfessionalHelp Desk Intern 03/23/24 documented as of this encounter
== END 2025-07-07 10:00 | disposition home or self-care (01) ==
PROVIDERS: PCP Internal Medicine; Visit Provider Hospitalist
DX: J45.40 Moderate persistent asthma, uncomplicated (principal); R91.8 Other nonspecific abnormal finding of lung field; G47.33 Obstructive sleep apnea (adult) (pediatric); J30.9 Allergic rhinitis, unspecified
CPT/HCPCS: 99214

== ENCOUNTER 2025-07-07 09:35 | Outpatient (REF) | payer OTHER, SELFPAY ==
--- NOTE | ~2025-07-07 | XR_ITS ---
EXAMINATION: XR CHEST 2 VIEWS HISTORY: J45.909 - Unspecified asthma, uncomplicated COMPARISON: Comparison is made with the prior examination dated 03/29/2025. FINDINGS: PA and lateral views of the chest are submitted. The lungs are expanded and clear. There is no pleural effusion, pneumothorax, or pulmonary vascular congestion. The heart is normal in size. The bones are intact. XR/XR chest 2V IMPRESSION: No acute cardiopulmonary abnormality. Electronically signed by: Sal Saldaña MD 07/07/2025 10:34 AM EDT
[2025-07-07 10:20] LABS: MANUAL DIFF FLAG NO
[2025-07-07 10:57] LABS: Hematocrit 36.7 % (37.0-47.0); Hemoglobin 12.5 g/dl (12.0-16.0); Imm Gran Abs Auto 0.01 X10*3/uL (0.00-0.03); Imm Gran Pct Auto 0.2 % (0.0-0.4); Lymphocytes Absolute Auto 2.0 X10*3/uL (1.2-4.9); Mean Corpuscular HGB Conc 34.1 g/dl (31.0-35.0); Mean Corpuscular Hemoglobin 29.3 pg (27.0-33.0); Mean Corpuscular Volume 86.2 fL (80.0-98.0); NRBC Abs Auto 0.000 X10*3/uL (0.0-0.012); NRBC Pct Auto 0.0 /100WBC (0.0-0.2); Platelet Count 423 X10*3/uL (160-400); Red Blood Count 4.26 X10*6/uL (4.20-5.50); White Blood Count 5.6 X10*3/uL (4.8-10.8)
[2025-07-07 11:21] LABS: Anion Gap 8 (12-20); Blood Urea Nitrogen 12 mg/dL (9-16); Calcium 9.6 mg/dL (8.4-10.2); Carbon Dioxide 31 mmol/L (22-29); Chloride 104 mmol/L (96-108); Estimated Glomerular Filt Rate > 60; Potassium 3.4 mmol/L (3.3-5.1); Sodium 140 mmol/L (135-145)
[2025-07-18 09:18] LABS: Asperg fumigatus Precip Abs NEGATIVE (NEGATIVE); Micropoly faeni Abs NEGATIVE (NEGATIVE); Saccharo pora viridis Abs NEGATIVE (NEGATIVE); Thermo candidus Abs NEGATIVE (NEGATIVE)
== END 2025-07-07 09:36 | disposition home or self-care (01) ==
LOC: HO.XRAY 09:35
PROVIDERS: PCP Internal Medicine; Visit Provider Hospitalist
DX: J45.40 Moderate persistent asthma, uncomplicated (principal); G47.33 Obstructive sleep apnea (adult) (pediatric); J30.9 Allergic rhinitis, unspecified; R91.8 Other nonspecific abnormal finding of lung field; Z79.51 Long term (current) use of inhaled steroids
CPT/HCPCS: 36415; 71046; 80048; 82785; 85025; 85652; 86331; 86606; 86609; 99212

== ENCOUNTER → 2025-07-07 10:20 | Outpatient (BNV) | payer OTHER, SELFPAY | PROVIDERS: PCP Internal Medicine; Visit Provider Radiology Diagnostic Radiology | DX: J45.909 Unspecified asthma, uncomplicated (principal) | CPT/HCPCS: 71046 ==

== ENCOUNTER 2025-07-13 12:53 | Outpatient (REF) | payer OTHER, SELFPAY ==
--- NOTE | ~2025-07-13 | US_ITS ---
CLINICAL HISTORY: N20.0 - Calculus of kidney US Renal Comparison: 03/15/2024 Findings: Right kidney normal size and echotexture, 10.8 cm length. There is a 0.9 x 0.8 x 1.1 cm right renal cyst. Left kidney normal size and echotexture, 10.8 cm length. There is a 1.3 x 1 x 0.9 cm left renal cyst. There is stable right renal scarring. No hydronephrosis of either kidney. Normal color Doppler there are multiple left renal echogenic foci largest measuring 5 mm. There is a right hepatic lobe cyst which measures 1.8 x 1.2 x 1.6 cm. IMPRESSION: Bilateral renal cysts Multiple left renal echogenic foci likely renal calculi can not exclude and/or interlobar vessels 1.8 x 1.2 x 1.6 cm incidentally noted right hepatic lobe cyst This document has been electronically signed by: Sal Fernandez MD on 07/14/2025 12:12:56
--- OUTSIDE RECORDS SUMMARY | 2025-07-13 17:38 | XMS_ITS | Encounter Summary ---
Author Organization [employer] Address 75 [facility] 7t [place] [address] Care Team Providers Care Abe Teacher Name Role Phone Diamond Blake MD Primary Care Pro vider Reason for Visit * Reason Comments Med Refill Encounter Details Date Type Department Care Team ([facility] st Contact Info) Description 10/24/2024 Refill [facility] [address] [place] [address] Diamond Blake MD [address] [place] [address] Social History Tobacco Use Types Packs/Day Years [...] Description 09/07/2025 1:15 PM EST Office Visit [facility] [address] [place] [address] Diamond Blake MD [address] [place] [address] 10/09/2025 2:00 PM EST Office Visit [facility] [address] [place] [address] Romaine, Lani, OD 230 [place] [address] 11/23/2025 3:00 PM EST Office Visit [facility] AD[facility] [address] [place] [address] Yisel Griffith documented as of this encounter Visit Diagnoses Not on filedocumented in this encounter Additional Health Concerns Assessment Noted Time PHQ-9 Depression Total Score: 14 024 9:42 AM EDT documented as of this encounter Care Teams Abe Teacher Relationship Specialty Start Date End Date Diamond Blake MD [address] [place] [address] PCP - General Internal Medicine 06/30/23 Zechariah Bradley Production Engineer TrackDermatopathologist 03/23/24 documented as of this encounter
--- OUTSIDE RECORDS SUMMARY | 2025-07-13 17:38 | XMS_ITS | Encounter Summary ---
Author Organization [employer] Address [address] [place] [address] 7 [place] [address] Care Team Providers Care Automotive Assembler Name Role Phone Diamond Blake MD Primary Care Pro vider Reason for Visit * Reason Comments Med Refill Encounter Details Date Type Department Care Team (Late st Contact Info) Description 07/06/2023 Refill [facility] [address] [place] [address] Kailash Trevizo AGNP Hypertension, unspecified type Social [...] Description 09/07/2025 1:15 PM EST Office Visit [facility] [address] [place] [address] Diamond Blake MD [address] [place] [address] 10/09/2025 2:00 PM EST Office Visit [facility] [address] [place], [place] [address] Romaine, Lani, OD 230 [place], [place] [phone] 11/23/2025 3:00 PM EST Office Visit [facility] AD[facility] [address] [place], [place] [phone] Yisel Griffith documented as of this encounter Visit Diagnoses Diagnosis Hypertension, unspecified type documented in this encounter Additional Health Concerns Assessment Noted Time PHQ-9 Depression Total Score: 15 023 2:22 PM EST documented as of this encounter Care Teams Automotive Assembler Relationship Specialty Start Date End Date Diamond Blake MD [address] [place], [place] [phone] PCP - General Internal Medicine 06/30/23 Zechariah Bradley Lumber SorterRespiratory Therapy Instructor 03/23/24 documented as of this encounter
--- OUTSIDE RECORDS SUMMARY | 2025-07-13 17:38 | XMS_ITS | Encounter Summary ---
Author Organization [employer] Address 75 [facility] 7t [place] [address] Care Team Providers Care Tamping Machine Operator Road Forms Name Role Phone Diamond Blake MD Primary Care Pro vider Reason for Visit * Reason Comments Med Refill Encounter Details Date Type Department Care Team ([facility] st Contact Info) Description 01/29/2024 Refill [facility] [address] [place] [address] Diamond Blake MD [address] [place] [address] Social History Tobacco Use Types Packs/Day Years [...] Description 09/07/2025 1:15 PM EST Office Visit [facility] [address] [place] [address] Diamond Blake MD [address] [place] [address] 10/09/2025 2:00 PM EST Office Visit [facility] [address] [place] [address] Romaine, Lani, OD 230 [place] [address] 11/23/2025 3:00 PM EST Office Visit [facility] [address] [place] [address] Yisel Griffith documented as of this encounter Visit Diagnoses Not on filedocumented in this encounter Additional Health Concerns Assessment Noted Time PHQ-9 Depression Total Score: 12 023 11:15 AM EST documented as of this encounter Care Teams Tamping Machine Operator Road Forms Relationship Specialty Start Date End Date Diamond Blake MD [address] [place] [address] PCP - General Internal Medicine 06/30/23 Zechariah Bradley Forepart RounderVisual Supervisor 03/23/24 documented as of this encounter
--- OUTSIDE RECORDS SUMMARY | 2025-07-13 17:38 | XMS_ITS | Encounter Summary ---
Author Organization [employer] Address [address] [place] [address] 7 [place] [address] Care Team Providers Care Chemical Sprayer Name Role Phone Diamond Blake MD Primary Care Pro vider Reason for Visit * Reason Onset Date Comments Med Refill 07/07/2023 Encounter Details Date Type Department Care Team (Late st Contact Info) Description 07/07/2023 Refill [facility] [address] [place] [address] Lay Avila MD [address] [place] [address] Social History Tobacco Use Types Packs/Day Years [...] Description 09/07/2025 1:15 PM EST Office Visit [facility] [address] [place] [address] Diamond Blake MD [address] [place] [address] 10/09/2025 2:00 PM EST Office Visit [facility] [address] [place], [place] [phone] Romaine, Lani, OD 230 [place] [address] 11/23/2025 3:00 PM EST Office Visit [facility] 230 [place], [place] [phone] Yisel Griffith documented as of this encounter Visit Diagnoses Not on filedocumented in this encounter Additional Health Concerns Assessment Noted Time PHQ-9 Depression Total Score: 15 023 2:22 PM EST documented as of this encounter Care Teams Chemical Sprayer Relationship Specialty Start Date End Date Diamond Blake MD [address] [place], [place] [phone] PCP - General Internal Medicine 06/30/23 Zechariah Bradley Unit TenderReinforcing Bar Setter 03/23/24 documented as of this encounter
--- OUTSIDE RECORDS SUMMARY | 2025-07-13 17:38 | XMS_ITS | Encounter Summary ---
Author Organization [employer] Address [address] [place] [address] 7 [place] [address] Care Team Providers Care Appraiser Land Name Role Phone Kailash Trevizo Primary Care Provider Unavail able Diamond Blake MD Primary Care Pro vider Encounter Details Date Type Department Care Team (Late st Contact Info) Description 06/02/2023 Abstract [facility] [address] [place] [address] Jennie Davis [address] [place] [address] Social History Tobacco Use Types Packs/Day Years [...] Description 09/07/2025 1:15 PM EST Office Visit [facility] [address] [place] [address] Diamond Blake MD [address] [place] [address] 10/09/2025 2:00 PM EST Office Visit [facility] [address] [place] [address] Lani Gavin, OD [address] [place] [address] 11/23/2025 3:00 PM EST Office Visit [facility] [address] [place], [place] [phone] Yisel Griffith documented as of this encounter Visit Diagnoses Not on filedocumented in this encounter Additional Health Concerns Assessment Noted Time PHQ-9 Depression Total Score: 15 12/12/ 023 2:22 PM EST documented as of this encounter Care Teams Appraiser Land Relationship Specialty Start Date End Date Kailash Trevizo AGNP PCP - General Family Medicine 11/13/22 06/29/23 Diamond Blake MD 230 [place], [place] [phone] PCP - General Internal Medicine 06/30/23 Zechariah Bradley File Drawer FinisherBusiness Intelligence Administrator 03/23/24 documented as of this encounter
--- OUTSIDE RECORDS SUMMARY | 2025-07-13 17:38 | XMS_ITS | Encounter Summary ---
Author Organization [employer] Address [address] [facility] [address] [place] [address] Care Team Providers Care Neck Band Setter Name Role Phone Diamond Blake MD Primary Care Pro vider Reason for Visit * Reason Comments Med Refill Encounter Details Date Type Department Care Team ([facility] st Contact Info) Description 04/27/2025 Refill [facility] [address] [place] [address] [place] Pires MD 230 [place] [address] Mild intermittent asthma with acute exacerbation Social [...] Description 09/07/2025 1:15 PM EST Office Visit [facility] [address] [place] [address] Diamond Blake MD [address] [place] [address] 10/09/2025 2:00 PM EST Office Visit [facility] [address] [place] [address] Romaine, Lani, OD 230 [place] [address] 11/23/2025 3:00 PM EST Office Visit [facility] [address] [place] [address] Yisel Griffith documented as of this encounter Visit Diagnoses Diagnosis Mild intermittent asthma with acute exacerbation documented in this encounter Additional Health Concerns Assessment Noted Time PHQ-9 Depression Total Score: 14 024 9:42 AM EDT documented as of this encounter Care Teams Neck Band Setter Relationship Specialty Start Date End Date Diamond Blake MD [address] [place] [address] PCP - General Internal Medicine 06/30/23 Zechariah Bradley Digital Marketing Program ManagerDouble Needle Operator 03/23/24 documented as of this encounter
--- OUTSIDE RECORDS SUMMARY | 2025-07-13 17:38 | XMS_ITS | Encounter Summary ---
Author Organization [employer] Address [address] [place] [address] 7 [place] [address] Care Team Providers Care Handling Tech Name Role Phone Diamond Blake MD Primary Care Pro vider Reason for Visit * Reason Onset Date Comments Med Refill 07/07/2023 Encounter Details Date Type Department Care Team (Late st Contact Info) Description 07/07/2023 Refill [facility] [address] [place] [address] Lay Avila MD 505 [place] [address] Social History Tobacco Use Types Packs/Day Years [...] 1:15 PM EST Office Visit [facility] [address] [place] [address] Diamond Blake MD [address] [place] [address] 10/09/2025 2:00 PM EST Office Visit [facility] [address] [place], [place] [phone] Romaine, Lani, OD 230 [place] [address] 11/23/2025 3:00 PM EST Office Visit [facility] [address] [place], [place] [phone] Yisel Griffith documented as of this encounter Visit Diagnoses Not on filedocumented in this encounter Additional Health Concerns Assessment Noted Time PHQ-9 Depression Total Score: 15 023 2:22 PM EST documented as of this encounter Care Teams Handling Tech Relationship Specialty Start Date End Date Diamond Blake MD [address] [place], [place] [phone] PCP - General Internal Medicine 06/30/23 Zechariah Bradley Roof Bolting Coal MinerSenior Accountant 03/23/24 documented as of this encounter
--- OUTSIDE RECORDS SUMMARY | 2025-07-13 17:38 | XMS_ITS | Encounter Summary ---
Author Organization [employer] Address 75 [facility] 7t [place] [address] Care Team Providers Care Army Ranger Name Role Phone Diamond Blake MD Primary Care Pro vider Encounter Details Date Type Department Care Team (Latest Contact Info) Description 05/15/2025 Results Follow-Up [facility] [address] [place] [address] Diamond Blake MD [address] [place] [address] BI Mammogram Screening Tomosynthesis Bilateral Social History [...] 1:15 PM EST Office Visit [facility] [address] [place] [address] Diamond Blake MD [address] [place] [address] 10/09/2025 2:00 PM EST Office Visit [facility] OPT[facility]RY [address] [place] [address] Lani Gavin, OD 230 [place] [address] 11/23/2025 3:00 PM EST Office Visit [facility] ADULT DENTAL [address] [place] [address] Yisel Griffith documented as of this encounter Visit Diagnoses Not on filedocumented in this encounter Additional Health Concerns Assessment Noted Time PHQ-9 Depression Total Score: 14 024 9:42 AM EDT documented as of this encounter Care Teams Army Ranger Relationship Specialty Start Date End Date Diamond Blake MD [address] [place] [address] PCP - General Internal Medicine 06/30/23 Zechariah Bradley Manager CopyEquipment Services Associate 03/23/24 documented as of this encounter
--- OUTSIDE RECORDS SUMMARY | 2025-07-13 17:38 | XMS_ITS | Encounter Summary ---
Author Organization [employer] Address 75 [facility] 7t [place] [address] Care Team Providers Care Under Baster Name Role Phone Diamond Blake MD Primary Care Pro vider Reason for Visit * Reason Comments Med Refill Encounter Details Date Type Department Care Team ([facility] st Contact Info) Description 10/25/2024 Refill [facility] [address] [place] [address] Diamond Blake MD [address] [place] [address] Hypertension, unspecified type Social History Tobacco Use [...] Description 09/07/2025 1:15 PM EST Office Visit [facility] [address] [place] [address] Diamond Blake MD [address] [place] [address] 10/09/2025 2:00 PM EST Office Visit [facility] OPT[facility] [address] [place] [address] Lani Gavin, OD 230 [place] [address] 11/23/2025 3:00 PM EST Office Visit [facility] ADULT D[facility] [address] [place] [address] Yisel Griffith documented as of this encounter Visit Diagnoses Diagnosis Hypertension, unspecified type documented in this encounter Additional Health Concerns Assessment Noted Time PHQ-9 Depression Total Score: 14 024 9:42 AM EDT documented as of this encounter Care Teams Under Baster Relationship Specialty Start Date End Date Diamond Blake MD [address] [place] [address] PCP - General Internal Medicine 06/30/23 Zechariah Bradley Nurse ObgynRail Filler 03/23/24 documented as of this encounter
--- OUTSIDE RECORDS SUMMARY | 2025-07-13 17:38 | XMS_ITS | Encounter Summary ---
Author Organization [email or web address] Address [address] [place] [address] Care Team Providers Care Lifeline Representatives Name Role Phone Diamond Blake MD Primary Care Pro vider Reason for Visit * Reason Comments Med Refill Encounter Details Date Type Department Care Team ([facility] st Contact Info) Description 06/08/2025 Refill [facility] WALK-IN CENTER [address] [place] [address] Diamond Blake MD [address] [place] [address] Mild intermittent asthma with acute exacerbation Social [...] Description 09/07/2025 1:15 PM EST Office Visit [facility] MEDICINE [address] [place] [address] Diamond Blake MD [address] [place] [address] 10/09/2025 2:00 PM EST Office Visit [facility] OPTOMETRY [address] [place] [address] Lani Gavin, OD [address] [place] [address] 11/23/2025 3:00 PM EST Office Visit [facility] ADULT DENTAL [address] [place] [address] Yisel Griffith documented as of this encounter Visit Diagnoses Diagnosis Mild intermittent asthma with acute exacerbation documented in this encounter Additional Health Concerns Assessment Noted Time PHQ-9 Depression Total Score: 14 024 9:42 AM EDT documented as of this encounter Care Teams Lifeline Representatives Relationship Specialty Start Date End Date Diamond Blake MD [address] [place] [id number] PCP - General Internal Medicine 06/30/23 Zechariah Bradley Postpartum RnWebsphere Process Server Developer 03/23/24 documented as of this encounter
--- OUTSIDE RECORDS SUMMARY | 2025-07-13 17:38 | XMS_ITS | Encounter Summary ---
Author Organization [employer] Address [address] [facility] [place] [address] Care Team Providers Care Grief Counselor Name Role Phone Diamond Blake MD Primary Care Pro vider Reason for Visit * Reason Onset Date Comments Med Refill 09/28/2023 Encounter Details Date Type Department Care Team (Late st Contact Info) Description 09/28/2023 Refill [facility] MED & PEDS [address] [place] [address] Zaida Christy MD [address] [place] [address] Hypertension, unspecified type Social History Tobacco Use [...] Description 09/07/2025 1:15 PM EST Office Visit [facility] MEDICINE [address] [place] [address] Diamond Blake MD [address] [place] [address] 10/09/2025 2:00 PM EST Office Visit [facility] OPTOMETRY [address] [place] [address] Romaine, Lani, OD [address] [place] [address] 11/23/2025 3:00 PM EST Office Visit [facility] ADULT DENTAL [address] [place] [address] Yisel Griffith documented as of this encounter Visit Diagnoses Diagnosis Hypertension, unspecified type documented in this encounter Additional Health Concerns Assessment Noted Time PHQ-9 Depression Total Score: 15 023 2:22 PM EST documented as of this encounter Care Teams Grief Counselor Relationship Specialty Start Date End Date Diamond Blake MD [address] [place] [id number] PCP - General Internal Medicine 06/30/23 Zechariah Bradley [employer] AssistantCompliance Investigator 03/23/24 documented as of this encounter
--- OUTSIDE RECORDS SUMMARY | 2025-07-13 17:38 | XMS_ITS | Encounter Summary ---
Author Organization [employer] Address [address] [place] [address] [facility] [place] [address] Care Team Providers Care Rivet Tester Name Role Phone Diamond Blake MD Primary Care Pro vider Reason for Visit * Reason Onset Date Comments Med Refill 07/07/2023 Encounter Details Date Type Department Care Team (Late st Contact Info) Description 07/07/2023 Refill [facility] MEDICINE [address] [place] [address] Kailash Trevizo AGNP Severe chronic obstructive pulmonary [...] Description 09/07/2025 1:15 PM EST Office Visit [facility] MEDICINE [address] [place] [address] Diamond Blake MD [address] [place] [address] 10/09/2025 2:00 PM EST Office Visit [facility] OPTOMETRY [address] [place], [place] [id number] Romaine, Lani, OD [address] [place] [address] 11/23/2025 3:00 PM EST Office Visit [facility] ADULT DENTAL [address] [place] [address] Yisel Griffith documented as of this encounter Visit Diagnoses Diagnosis Severe chronic obstructive pulmonary disease (CMS/HCC) Chronic airway obstruction, not elsewhere classified Hypertension, unspecified type Hyperlipidemia, unspecified hyperlipidemia type documented in this encounter Additional Health Concerns Assessment Noted Time PHQ-9 Depression Total Score: 15 023 2:22 PM EST documented as of this encounter Care Teams Rivet Tester Relationship Specialty Start Date End Date Diamond Blake MD [address] [place], [place] [phone] PCP - General Internal Medicine 06/30/23 Zechariah Bradley Coarse Wire DrawerHoning Job Setter 03/23/24 documented as of this encounter
--- OUTSIDE RECORDS SUMMARY | 2025-07-13 17:38 | XMS_ITS | Clinical Summary ---
Author Organization [employer] Address [address] [facility] [address] [place] [address] Care Team Providers Care Cloth Grader Name Role Phone Diamond Blake MD Primary [...] tabletIndication s:Acute exacerbation of COPD with asthma ([facility]) 2 tabs po daily for 5 days [...] in her new apartment. We had the [facility] department come up and talk with her. They recommended a referral to care management. Referral placed. PHQ: 0 STI: reports no partner at this time. Pap: Last memory was in [place], approximately 5 years ago. Substance use: Denies [...] shortly cant remember date. Eye exam: Sees [facility] eye care. Dental home: Had [facility] dental appointment that she missed. She is now going to [facility]. Localized swelling of both [...] LDL-C. Eb LOPEZ et al. [place]. 2013;310(19): 4668-7695 (http://education.Storspeed/faq/QOE283) Chol/HDLC Ratio <5.0 (calc) 4.1 3.8 4.0 [...] see if there was an error. The supervisor laboratory animal facility was able to find the lab orders. I discussed with patient if there was an issue with her blood work someone would contact her to set up and appointment. Osteopenia 04/17/2017 Vitamin D deficiency 04/17/2017 Resolved Problems Problem Noted Date Diagnosed Date Resolved Date Black tongue 08/18/2023 10/09/2023 Anemia 04/17/2017 08/18/2023 Encounters Date Type Department Care Team Description 07/11/2025 Telephone [facility] MEDICINE [address] [place] [phone] Diamond Blake MD GAFC vs HOUSING OFFICER 07/07/2025 Orders Only [facility] External Provider, [facility] 06/29/2025 Telephone [facility] MEDICINE [address] [place] [phone] Diamond Blake MD Prior Authorization 06/28/2025 Refill [facility] CHC MED & PEDS [address] [place] [address] Diamond Blake MD Hyperlipidemia, unspecified hyperlipidemia type 06/26/2025 9:15 AM EDT Office Visit [facility] MEDICINE [address] [place] [phone] Elizabeth Pires MD Acute exacerbation of COPD with asthma ([facility]) 06/26/2025 Travel 06/14/2025 Refill [facility] MEDICINE [address] [place] [phone] Diamond Blake MD Obesity (BMI 30-39.9) 06/14/2025 Refill [facility] CHC MED & PEDS [address] [place] [address] Pradeep Deluna MD 06/08/2025 Refill [facility] WALK-IN CENTER [address] [place] [phone] Diamond Blake MD Mild intermittent asthma with acute exacerbation 06/02/2025 10:00 AM EDT Office Visit [facility] MEDICINE [address] [place] [phone] Diamond Blake MD Melasma (Primary Dx); Hypertension, unspecified type; Class 3 severe obesity due to excess calories with body mass index (BMI) of 40.0 to 44.9 in adult; Routine adult health maintenance; Dementia, unspecified dementia severity, unspecified dementia type, unspecified whether behavioral, psychotic, or mood disturbance or anxiety ([facility]) 06/02/2025 Travel 06/01/2025 Telephone [facility] MEDICINE [address] [place] [phone] Diamond Blake MD Chart Prep 05/24/2025 Refill [facility] MEDICINE [address] [place] [address] Diamond Blake MD 05/23/2025 Orders Only [facility] MEDICINE [address] [place] [phone] Diamond Blake MD Obesity (BMI 30-39.9) (Primary Dx) 05/22/2025 Refill [facility] MEDICINE [address] [place] [address] Diamond Blake MD Obesity (BMI 30-39.9); Prediabetes 05/19/2025 Refill [facility] CHC MED & PEDS [address] [place], [place] [phone] Diamond Blake MD 05/15/2025 Results Follow-Up [address] [address] Diamond Blake MD BI Mammogram Screening Tomosynthesis Bilateral 05/10/2025 2:00 PM EDT Office Visit [facility] ADULT DENTAL [address] [place] [phone] Marjorie Turk 05/08/2025 Telephone [facility] ADULT DENTAL [address] [place] [phone] Marjorie Turk 05/04/2025 Orders Only [facility] MEDICINE [address] [place] [phone] Diamond Blake MD Osteopenia after menopause (Primary Dx); Primary hyperparathyroidism ([facility]) 05/01/2025 Refill [facility] WALK-IN CENTER [address] [place] [phone] Elizabeth Pires MD Mild intermittent asthma with acute exacerbation 04/27/2025 Refill [facility] WALK-IN CENTER [address] [place] [address] [phone] Elizabeth Pires MD Mild intermittent asthma with acute exacerbation 04/13/2025 Refill [facility] MEDICINE [address] [place] [address] [phone] Diamond Blake MD Obesity (BMI 30-39.9); Prediabetes [...] Description 09/07/2025 1:15 PM EST Office Visit [facility] MEDICINE [address] [place] [phone] Diamond Blake MD [address] [place] [address] 10/09/2025 2:00 PM EST Office Visit [facility] OPTOMETRY [address] [place] [address] Lani Gavin, OD [address] [place] [address] 11/23/2025 3:00 PM EST Office Visit [facility] ADULT DENTAL [address] [place] [phone] Yisel Griffith Health Maintenance Due Date Last [...] 05/02/2026 023, 12/10/2017, 11/17/2017 Mammogram 05/04/2026 05/04/2025, 12/17, 01/02/2023, Additional history exists Tobacco Screening 06/26/2026 06/26/2025 DTaP/Tdap/Td Vaccines (2 - Td or Tdap) 04/17/2027 04/17/2017 Cervical Cancer Screening 01/27/2029 HPV/Cotest 01/27/2029 01/28/2024 Pap Smear 01/27/2029 01/28/2024 Lipid Panel 09/05/2029 09/05/2024, 12/2023, [...] Procedure Name Priority Date/Time Associated Diagnosis Comments XR CHEST 2 VIEWS Routine 07/07/2025 10:2 4 AM EDT SED RATE BY MODIFIED WESTERGREN Routine 07/07/2025 10:18 AM EDT BASIC METABOLIC PANEL Routine 07/07/2025 10:18 AM EDT CBC WITH AUTO DIFFERENTIAL Routine 07/07/2025 10:18 AM EDT POCT INFLUENZA B Routine 06/26/2025 9:31 AM EDT Acute exacerbation of COPD with asthma (CMS/HCC) POCT INFLUENZA A Routine 06/26/2025 9:31 AM EDT Acute exacerbation of COPD with asthma (CMS/HCC) POCT RAPID COVID ANTIGEN Routine 06/26/2025 9:30 AM EDT Acute exacerbation of COPD with asthma (CMS/HCC) PERIODIC ORAL EVALUATION - ESTABLISHED PATIENT Routine [...] Recently Relevant to Health Maintenance Results * XR Chest 2 Views (07/07/2025 10:24 AM EDT) Anatomical Region Laterality Modality Chest Radiographic Sonja ging 07/07/2025 10:2 4 AM EDT Narrative 07/07/2025 10:37 AM EDT [address] [address] XRay Report Signed Patient: Diamond Grider MR#: [id number] : 1960 Acct:[id number] Age/Sex: 64 / F ADM Date: 07/07/25 Loc: JARAD Attending Dr: Keith Mclena MD Ordering Physician: Keith Mclean MD Date of Service: 07/07/25 Procedure(s): XR chest 2V Accession Number(s): [id number] cc: Diamond Diaz MD; Keith Mclean MD Reason for Exam: J45.909 - Unspecified asthma, uncomplicated EXAMINATION: XR CHEST 2 VIEWS HISTORY: J45.909 - Unspecified asthma, uncomplicated COMPARISON: Comparison is made with the prior examination dated 03/29/2025. FINDINGS: PA and lateral views of the chest are submitted. The lungs are expanded and clear. There is no pleural effusion, pneumothorax, or pulmonary vascular congestion. The heart is normal in size. The bones are intact. XR/XR chest 2V IMPRESSION: No acute cardiopulmonary abnormality. Electronically signed by: Sal Saldaña MD 07/07/2025 10:34 AM EDT Dictated By: Sal Saldaña MD Signed By: <Electronically signed by Sal Saldaña MD in OV> 07/07/25 1034 DD/ 1024 TD/TT: 07/07/25 1030 [employer] Operations Intelligence Chief: Procedure Note Donotuseinterpreter, Image - 07/07/2025 [place] [address] XRay Report Signed Patient: Diamond Grider EMR#: [id number] : 1960Acct:[id number] Age/Sex: 64 / FADM Date: 07/07/25 Loc: JARAD Attending Dr: Keith Mclean MD Ordering Physician: Keith Mclean MD Date of Service: 07/07/25 Procedure(s): XR chest 2V Accession Number(s): [id number] cc: Diamond Diaz MD; Keith Mclean MD Reason for Exam: J45.909 - Unspecified asthma, uncomplicated EXAMINATION: XR CHEST 2 VIEWS HISTORY: J45.909 - Unspecified asthma, uncomplicated COMPARISON: Comparison is made with the prior examination dated 03/29/2025. FINDINGS: PA and lateral views of the chest are submitted. The lungs are expanded and clear. There is no pleural effusion, pneumothorax, or pulmonary vascular congestion. The heart is normal in size. The bones are intact. XR/XR chest 2V IMPRESSION: No acute cardiopulmonary abnormality. Electronically signed by: Sal Saldaña MD 07/07/2025 10:34 AM EDT RP Dictated By: Sal Saldaña MD Signed By: <Electronically signed by Sal Saldaña MD in OV> 07/07/25 1034 DD/ 1024 TD/TT: 07/07/25 1030 [employer] Operations Intelligence Chief: [facility] External Provider IMG XR PROCEDURES Edited Result - Final * (ABNORMAL) CBC auto differential (07/07/2025 10:18 AM EDT) White Blood Count 5.6 4.8 - 10.8 X10*3/uL [facility] Red Blood Count 4.26 4.20 - 5.50 X10*6/uL [facility] Hemoglobin 12.5 12.0 - 16.0 g/dl [facility] Hematocrit 36.7(L) 37.0 - 47.0 % [facility] Mean Corpuscular Volume 86.2 80.0 - 98.0 fL [facility] Mean Corpuscular Hemoglobin 29.3 27.0 - 33.0 pg [facility] Mean Corpuscular HGB Conc 34.1 31.0 - 35.0 g/dl [facility] Red Cell Distribution Width 13.1 11.0 - 16.0 % [facility] Platelet Count 423(H) 160 - 400 X10*3/uL [facility] Mean Platelet Volume 9.9 9.4 - 12.3 fL [facility] Neutrophils Percent Auto 57.7 45 - 73 % [facility] Imm Gran Pct Auto 0.2 0.0 - 0.4 % [facility] Lymphocytes Percent Auto 35.2 20 - 40 % [facility] Monocytes Percent Auto 4.7 2 - 11 % [facility] Eosinophils Percent Auto 0.9 0 - 4 % [facility] Basophils Percent Auto 1.3 0 - 2 % [facility] NRBC Pct Auto 0.0 0.0 - 0.2 /100WBC [facility] Neutrophils Absolute Auto 3.2 2.0 - 8.3 x10*3/uL [facility] Imm Gran Abs Auto 0.01 0.00 - 0.03 X10*3/uL [facility] Lymphocytes Absolute Auto 2.0 1.2 - 4.9 X10*3/uL [facility] Monocytes Absolute Auto 0.3 0.1 - 1.2 X10*3/uL [facility] Eosinophils Absolute Auto 0.1 0.0 - 0.4 X10*3/uL [facility] Basophils Absolute Auto 0.1 0.0 - 0.2 X10*3/uL [facility] NRBC Abs Auto 0.000 0.0 - 0.012 X10*3/uL [facility] 07/07/2025 10:1 8 AM EDT 07/07/2025 10:18 AM EDT us Generic External Data Provider LAB BLOOD ORDERAB LES Final Result Performing Organization Address City/[facility] Co de Phone Number [facility] [address] [place] [phone] * Sed Rate by Modified Aydinergren (07/07/2025 10:18 AM EDT) Erythrocyte Sedimentation Rate 17 0 - 20 MM/HR [facility] Comment:Patients with polycy themia and many hemoglobin abnormalitiesmay have depressed sed rates whereas patients with anemiamay have elevated sed rates. 07/07/2025 10:1 8 AM EDT 07/07/2025 10:18 AM EDT us Generic External Data Provider LAB BLOOD ORDERAB LES Final Result Performing Organization Address City/State/[facility] Co de Phone Number [facility] [address] [place] [address] [phone] * (ABNORMAL) Basic Metabolic Panel (07/07/2025 10:18 AM EDT) Pathologist [facility] Sodium 140 135 - 145 mmol/L [facility] Potassium 3.4 3.3 - 5.1 mmol/L [facility] Chloride 104 96 - 108 mmol/L [facility] Carbon Dioxide 31(H) 22 - 29 mmol/L [facility] Anion Gap 8(L) 12 - 20 [facility] Urea Nitrogen (BUN) 12 9 - 16 mg/dL [facility] Creatinine, Serum 0.73 0.5 - 1.4 mg/dL [facility] Estimated Glomerular Filt Rate >60 [facility] Comment:Chronic Kidney Disea se: Estimated GFR < 60 mL/min/1.41p3Anmbqo Kidney Disease: Estimated GFR < 15 mL/min/1.73m2 Glucose 82 60 - 115 mg/dL [facility] Calcium 9.6 8.4 - 10.2 mg/dL [facility] 07/07/2025 10:1 8 AM EDT 07/07/2025 10:18 AM EDT us Generic External Data Provider LAB BLOOD ORDERAB LES Final Result Performing Organization Address [facility] Co de Phone Number [facility] [address] [place] [phone] * POCT Influenza B manually resulted (06/26/2025 9:31 AM EDT) Pathologist [facility] Rapid Influenza B Ag Negative Negative, Indeterminate QC Media Lot # [id number] Lot# Expiration Date Swab 06/26/2025 9:31 AM EDT Elizabeth Pires MD POINT OF CARE TEST ENTER/E DIT ORDERABLES Final Result * POCT Influenza A manually resulted (06/26/2025 9:31 AM EDT) Rapid Influenza A Ag Negative Negative, Indeterminate QC Media Lot # [id number] Lot# Expiration Date Swab Nasopharyngeal structure / Unknown 06/26/2025 9:31 AM EDT Elizabeth Pires MD POINT OF CARE TEST ENTER/E DIT ORDERABLES Final Result * POCT Rapid COVID Ag (06/26/2025 9:30 AM EDT) Rapid COVID Ag Negative QC Media Lot # [id number] Lot# Expiration Date Swab 06/26/2025 9:30 AM EDT Elizabeth Pires MD POINT OF CARE TEST ENTER/E DIT ORDERABLES Final Result * BI Mammogram Screening Tomosynthesis Bilateral (05/04/2025 1:40 PM EDT) Anatomical Region Laterality Modality Breast Bilateral Mammography 05/04/2025 1:40 PM EDT Narrative 05/15/2025 4:33 PM EDT [facility] [address] [place] [address] Mammography Report Signed Patient: Diamond Grider MR#: [id number] : 1960 Acct:[id number] Age/Sex: 64 / F ADM Date: 05/04/25 Loc: HO.MAMMO Attending Dr: Diamond Barry MD Ordering Physician: Diamond Blake MD Re sults: 1Negative Date of Service: 05/04/25 Follow Up: 1 Year From Orig inal Mammogram Procedure(s): MM tomosynthesis screening BI Accession Number(s): [id number] cc: Diamond Blake MD EXAMINATION: MM SCREENING [...] 05/15/25 1630 DD/ 1340 TD/TT: 05/04/25 1405 [employer] Operations Intelligence Chief: Procedure Note Donotuseinterpreter, Image - 05/15/2025 [facility] [address] [place] [address] Mammography Report Signed Patient: Diamond Grider EMR#: [id number] : 1960Acct:[id number] Age/Sex: 64 / FADM Date: 05/04/25 Loc: HO.MAMMO Attending Dr: Diamond Barry MD Ordering Physician: Diamond Blake sults: 1Negative Date of Service: 05/04/25Follow Up: 1 Year From Orig inal Mammogram Procedure(s): MM tomosynthesis screening BI Accession Number(s): [id number] cc: Diamond Blake MD EXAMINATION: MM SCREENING [...] 05/15/25 1630 DD/ 1340 TD/TT: 05/04/25 1405 [employer] Operations Intelligence Chief: Diamond Barry MD IMG BI PROCEDURES Final Result * XR DEXA APPENDICULAR SKELETON (05/04/2025 1:30 PM EDT) Anatomical Region Laterality Modality Abdomen Radiographic Sonja ging 05/04/2025 1:30 PM EDT Narrative 05/04/2025 2:41 PM EDT [facility] [address] [place] [address] Mammography Report Signed Patient: Diamond Grider MR#: [id number] : 1960 Acct:[id number] Age/Sex: 64 / F ADM Date: 05/04/25 Loc: HO.MAMMO Attending Dr: Diamond Barry MD Ordering Physician: Diamond Blake [facility] Date of Service: 05/04/25 Follow Up: Procedure(s): XR DEXA appendicular skeleton Accession Number(s): [id number] cc: Diamond Blake MD EXAMINATION: DXA BONE DENSITY EXTREMITY HISTORY: M85.80 OSTEOPENIA TECHNIQUE: Korbit Dual energy absorptiometry (DEXA) of the lumbar [...] is a trademark of the [employer]'s [place] for Metabolic Bone Disease, a World Health Organization (WHO) Collaborating Center. Electronically signed by: Sal Saldaña MD 05/04/2025 02:38 PM EDT RP Dictated By: Sal Saldaña MD Signed By: <Electronically signed by Sal Saldaña MD in OV> 05/04/25 1438 DD/ 1330 TD/TT: 05/04/25 1400 [employer] Operations Intelligence Chief: Procedure Note Donotuseinterpreter, Image - 05/04/2025 [facility] [address] [place] [address] Mammography Report Signed Patient: Diamond Grider EMR#: [id number] : 1960Acct:[id number] Age/Sex: 64 / FADM Date: 05/04/25 Loc: HO.MAMMO Attending Dr: Diamond Barry MD Ordering Physician: Diamond Blake sults: Date of Service: 05/04/25Follow Up: Procedure(s): XR DEXA appendicular skeleton Accession Number(s): [id number] cc: Diamond Blake MD EXAMINATION: DXA BONE DENSITY EXTREMITY HISTORY: M85.80 OSTEOPENIA TECHNIQUE: Korbit Dual energy absorptiometry (DEXA) of the lumbar [...] is a trademark of the [employer] [place] for Metabolic Bone Disease, a World Health Organization (WHO) Collaborating Center. Electronically signed by: Sal Saldaña MD 05/04/2025 02:38 PM EDT Dictated By: Sal Saldaña MD Signed By: <Electronically signed by Sal Saldaña MD in OV> 05/04/25 1438 DD/ 1330 TD/TT: 05/04/25 1400 [employer] Operations Intelligence Chief: us Diamond Barry MD IMG XR PROCEDURES Edited Result - Final * Hemoglobin A1c (09/05/2024 8:25 AM EST) Hemoglobin A1c 5.7 <6.0 % [facility] Comment:Hemoglobin A1C Refer ence Range Adults: 4.8 - 6.0 % Non diabetic: < 6.0 % Goal: < 7.0 %Additional Action Suggested: > 8.0 %Note: Hemoglobin A1c results are invalid for patients with abnormal amounts of HbF. Blood transfusions may impact the HbA1c concentration in the patient sample. Estimated Average Glucose 117 mg/dL [facility] Comment:eAG = Estimated ave rage glucose which is %A1C expressed asaverage glucose, using the formula of the M0R-EebghyeKlkxnku Glucose study (ADAG), Diabetes Care, Vol.31,#8,May. 2007 Blood Venous blood specimen / Unknown 09/05/2024 8:25 AM EST 09/05/2024 11:36 AM EST us Diamond Barry MD LAB BLOOD ORDERAB LES Final Result [facility] [address] [place] [phone] * Lipid Panel, Standard (09/05/2024 8:25 AM EST) Triglycerides 134 <150 mg/dL [facility] Comment:Desirable Triglyceri de: less than 150 mg/dLBorderline High Triglyceride 150-199 mg/dLHigh Triglyceride: 200-499 mg/dLVery High Triglyceride: greater than or equal to 5OO mg/dL Cholesterol 152 <200 mg/dL [facility] Comment:Desirable Cholestero l: less than 200 mg/dLBorderline High Cholesterol: 200-239 mg/dLHigh Cholesterol: greater than 239 mg/dL LDL Cholesterol Calculated 70 <100 mg/dL [facility] Comment:Desirable LDL: less than 100 mg/dLNear Optimal/Above Optimal LDL: 110- 129 mg/dLBorderline High LDL: 130-159 mg/dLHigh LDL: 160-189 mg/dLVery High LDL: greater than or equal to 190 mg/dL HDL Cholesterol 56 >40 mg/dL [facility] Comment:Desirable HDL: great er than 40 mg/dL Note: This HDL assay may give artificially low results in patients with liver disease. Blood Venous blood specimen / Unknown 09/05/2024 8:25 AM EST 09/05/2024 11:36 AM EST us Diamond Barry MD LAB BLOOD ORDERAB LES Final Result Performing Organization Address [facility]/ZIP Co de Phone Number [facility] [address] [place] [address] [phone] * HPV mRNA E6/E7 w/Reflex to HPV Genotypes 16, 18/45 (01/28/2024 11:09 AM EDT) HPV nRNA E6/E7 Not Detected Not Detected [facility] Comment:Methodology: Transcr iption-Mediated AmplificationThis assay detects E6/E7 viral messenger RNA (mRNA) from 14high-risk HPV types (16,18,31,33,35,39,45,51,52,56,58,59,66,68).Cervical sources are required for HPV testing.If a vaginal source from a patient who has had atotal hysterectomy with removal of cervix wassubmitted, please contact the testing laboratoryfor alternative testing options.For additional information, please refer tohttp://education.[employer]/faq/PUT259o0(This link if provided for information/educational purposes only.)THIS TEST WAS PERFORMED AT:[email or web address] [place] [phone] CHANG MD HPV mRNA E6/E7 [facility] HPV 16 RNA [facility] HPV 18/45 RNA [facility] 01/28/2024 11:0 9 AM EDT 02/02/2024 12:00 PM EDT us Alyce ROTH LAB CYTOLOGY ORDERABLES F inal Result Performing Organization Address [facility]/ZIP Co de Phone Number [facility] [address] [place] [phone] * Pap Smear (01/28/2024 11:09 AM EDT) Swab Cervix uteri structure / Unknown 01/28/2024 11:09 AM EDT 02/02/2024 12:00 PM EDT Narrative [facility] - 02/17/2024 6:59 AM EDT ----- ------- Name: Diamond Grider Age/Sex: 63/F : 1960 Unit#: [id number] Attend Dr: ALYCE GALLO CNM Re01/28/24 Status: [facility]: ----- ------- SPEC : [id number] RECD: 02/02/24-1200 STATUS: KEYONA STONER NUM: [id number] SELENE: 01/28/24-[address] [facility] [address]: ALYCE GALLO CNM ENTERED: 02/02/24-1244 SP TYPE: Pap Smr OT DR: ORDERED: Pap Smear Interpretation Satisfactory for evaluation. Atrophic. Negative for intraepithelial lesion or malignancy. HPV mRNA E6/E7: NOT DETECTED This assay detects E6/E7 viral messenger RNA (mRNA) from 14 high-risk HPV types (16, 18, 31, 33, 35, 39, 45, 51, 52, 56, 58, 59, 66, 68) HPV testing performed by [facility], [place], [place]. See reference laboratory portion of the EMR for entire report. Clinical Information LMP: Postmenopausal Previous PAP test: Unknown date/findings Material Received ThinPrep-Vaginal/Cervical ----- ------- Signed (signature on file) RIANNA Han ([facility]) 02/17/24 0659 ----- ------- END OF REPORT Alyce Gallo CNM LAB CYTOLOGY ORDERABLES F inal Result Performing Organization Address [facility]/ZIP Co de Phone Number [facility] [address] [place] [address] [phone] * Hepatitis C Antibody with Reflex to HCV, RNA, Quantitative, Real-Time PCR (08/28/2023 9:03 AM EST) [facility] Hepatitis C Antibody Nonreactive Nonreactive [facility] Comment:Antibodies to HCV no t detected; does not exclude early acuteHCV infection. Blood Venous blood specimen / Unknown 08/28/2023 9:03 AM EST 08/28/2023 11:14 AM EST us Diamond Barry MD LAB BLOOD ORDERAB LES Final Result Performing Organization Address [facility]/ZIP Co de Phone Number [facility] [address] [place], [place] [phone] * (ABNORMAL) Colonoscopy (07/21/2023) Pathologist [facility] Colonoscopy Abnormal( A) Normal Comment:polyps( 4-5 mm [...] Most Recently Relevant to Health Maintenance Insurance [facility] INTERMEDIATE OPTIONS (O D-SNP) [facility] MEDICAID STAND ADULT Care Teams Cloth Grader Relationship Specialty Start Date End Date Diamond Blake MD [address] [place] [address] PCP - General Internal Medicine 06/30/23 Zechariah Bradley [employer] CoordinatorProduce Service Team Member 03/23/24
--- OUTSIDE RECORDS SUMMARY | 2025-07-13 17:38 | XMS_ITS | Encounter Summary ---
Author Organization [employer] Address [address] [facility] 7 [place] [address] Care Team Providers Care Professor Of Radiology Name Role Phone Diamond Blake MD Primary Care Pro vider Reason for Visit * Reason Comments Med Refill Encounter Details Date Type Department Care Team ([facility] st Contact Info) Description 05/22/2025 Refill [facility] [address] [place] [address] Diamond Blake MD [address] [place] [address] Obesity (BMI 30-39.9); Prediabetes Social History Tobacco [...] 09/07/2025 1:15 PM EST Office Visit [facility] [address] [place] [address] Diamond Blake MD [address] [place] [address] 10/09/2025 2:00 PM EST Office Visit [facility] OPTOMETRY [address] [place] [address] Lani Gavin, OD [address] [place] [address] 11/23/2025 3:00 PM EST Office Visit [facility] ADULT DENTAL [address] [place] [address] Yisel Griffith documented as of this encounter Visit Diagnoses Diagnosis Obesity (BMI 30-39.9) Prediabetes Other abnormal glucose documented in this encounter Additional Health Concerns Assessment Noted Time PHQ-9 Depression Total Score: 14 024 9:42 AM EDT documented as of this encounter Care Teams Professor Of Radiology Relationship Specialty Start Date End Date Diamond Blake MD [address] [place] [address] PCP - General Internal Medicine 06/30/23 Zechariah Bradley Zoology Technical OfficerProgress Clerk 03/23/24 documented as of this encounter
--- OUTSIDE RECORDS SUMMARY | 2025-07-13 17:38 | XMS_ITS | Encounter Summary ---
Author Organization [employer] Address [address] [place] [address] 7 [place] [address] Care Team Providers Care Services Executive Name Role Phone Diamond Blake MD Primary Care Pro vider Reason for Visit * Reason Onset Date Comments Med Refill 07/07/2023 Encounter Details Date Type Department Care Team (Late st Contact Info) Description 07/07/2023 Refill [facility] PEDS [address] [place] [address] Nava Moss MD [address] [place] [address] Severe chronic obstructive pulmonary disease (CMS/HCC) Social [...] Description 09/07/2025 1:15 PM EST Office Visit [facility] MEDICINE [address] [place] [address] Diamond Blake MD [address] [place], [place] [phone] 10/09/2025 2:00 PM EST Office Visit [facility] OPTOMETRY [address] [place], [place] [phone] Romaine, Lani, OD [address] [place] [address] 11/23/2025 3:00 PM EST Office Visit [facility] ADULT DENTAL [address] [place], [place] [phone] Yisel Griffith documented as of this encounter Visit Diagnoses Diagnosis Severe chronic obstructive pulmonary disease (CMS/HCC) Chronic airway obstruction, not elsewhere classified documented in this encounter Additional Health Concerns Assessment Noted Time PHQ-9 Depression Total Score: 15 023 2:22 PM EST documented as of this encounter Care Teams Services Executive Relationship Specialty Start Date End Date Diamond Blkae MD [address] [place], [place] [phone] PCP - General Internal Medicine 06/30/23 Zechariah Bradley Machine Hoop Maker HelperMerchandise Collector 03/23/24 documented as of this encounter
--- OUTSIDE RECORDS SUMMARY | 2025-07-13 17:38 | XMS_ITS | Encounter Summary ---
Author Organization [employer] Address [address] [place] [address] 7 [place] [address] Care Team Providers Care Controller Operations And Hr Manager Name Role Phone Diamond Blake MD Primary Care Pro vider Reason for Visit * Reason Onset Date Comments Med Refill 07/08/2023 Encounter Details Date Type Department Care Team (Late st Contact Info) Description 07/08/2023 Refill [facility] MEDICINE [address] [place] [address] Diamond Blake MD [address] [place] [address] Severe chronic obstructive pulmonary disease (CMS/HCC); Hypertension, [...] Description 09/07/2025 1:15 PM EST Office Visit [facility] MEDICINE [address] [place] [address] Diamond Blake MD [address] [place], [place] [phone] 10/09/2025 2:00 PM EST Office Visit [facility] OPTOMETRY [address] [place], [place] [phone] Romaine, Lani, OD [address] [place] [address] 11/23/2025 3:00 PM EST Office Visit [facility] ADULT DENTAL [address] [place] [address] Yisel Griffith documented as of this encounter [...] documented as of this encounter Care Teams Controller Operations And Hr Manager Relationship Specialty Start Date End Date Diamond Blake MD [address] [place], [place] [phone] PCP - General Internal Medicine 06/30/23 Zechariah Bradley Bead PickerVariety Saw Operator 03/23/24 documented as of this encounter
--- OUTSIDE RECORDS SUMMARY | 2025-07-13 17:38 | XMS_ITS | Encounter Summary ---
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 Per [facility] patient has GAFC already; left message with adult care provider to see if patient is able to have GAFC increased to 2 hours or ifPCA prior authorization could be initiated instead. Will await call back from Hospice Nurse Practitioner at [facility]. documented in this encounter Plan of Treatment Upcoming Encounters Date Type Department Care Team (Late st Contact Info) Description 09/07/2025 1:15 PM EST Office Visit [facility] MEDICINE [address] [place], [place] [phone] Diamond Blake MD [address] [place], [place] [phone] 10/09/2025 2:00 PM EST Office Visit [facility] OPTOMETRY [address] [place] [phone] Lani Gavin, OD [address] [place], [place] [phone] 11/23/2025 3:00 PM EST Office Visit [facility] ADULT DENTAL [address] [place], [place] [phone] Yisel Griffith documented as of this encounter Visit Diagnoses Not on filedocumented in this encounter Additional Health Concerns Assessment Noted Time PHQ-9 Depression Total Score: 14 024 9:42 AM EDT documented as of this encounter Care Teams Bender Hand Relationship Specialty Start Date End Date Diamond Blake MD [address] [place], [place] [phone] PCP - General Internal Medicine 06/30/23 Zechariah Bradley Cargo Tank MechanicChar Filter Tank Tender Head 03/23/24 documented as of this encounter
--- OUTSIDE RECORDS SUMMARY | 2025-07-13 17:38 | XMS_ITS | Encounter Summary ---
Author Organization [employer] Address [address] [facility] 7t [place] [address] Care Team Providers Care Strip Polisher Name Role Phone Kailash Trevizo Primary Care Provider Unavail able Diamond Blake MD Primary Care Pro vider Reason for Visit * Reason Comments Med Refill Encounter Details Date Type Department Care Team (Late st Contact Info) Description 02/11/2023 Refill [facility] [address] [place] [address] Otoniel Bella MD [address] [place] [address] Chronic pain of both knees; Acute pain [...] Description 09/07/2025 1:15 PM EST Office Visit [facility] MEDICINE [address] [place] [address] Diamond Blake MD [address] [place], [place] [phone] 10/09/2025 2:00 PM EST Office Visit [facility] OPTOMETRY [address] [place], [place] [phone] Lani Gavin, OD [address] [place], [place] [phone] 11/23/2025 3:00 PM EST Office Visit [facility] ADULT DENTAL [address] [place], [place] [phone] Yisel Griffith documented as of this encounter Visit Diagnoses Diagnosis Chronic pain of both knees Acute pain of left shoulder documented in this encounter Additional Health Concerns Assessment Noted Time PHQ-9 Depression Total Score: 15 12/12/ 023 2:22 PM EST documented as of this encounter Care Teams Strip Polisher Relationship Specialty Start Date End Date Kailash Trevizo AGNP PCP - General Family Medicine 11/13/22 06/29/23 Diamond Blake MD [address] [place], [place] [phone] PCP - General Internal Medicine 06/30/23 Zechariah Bradley Liquified Natural Gas TechnicianTerrazzo Grinder 03/23/24 documented as of this encounter
--- OUTSIDE RECORDS SUMMARY | 2025-07-13 17:38 | XMS_ITS | Encounter Summary ---
Author Organization [employer] Address [address] [facility] 7t [place] [address] Care Team Providers Care Scientific Systems Analyst Name Role Phone Diamond Blake MD Primary Care Pro vider Reason for Visit * Reason Onset Date Comments Med Refill 07/07/2023 Encounter Details Date Type Department Care Team (Late st Contact Info) Description 07/07/2023 Refill [facility] [address] [place] [address] Otoniel Bella MD [address] [place] [address] Chronic pain of both knees; Acute pain [...] Visit [facility] MEDICINE [address] [place] [address] Diamond Blake MD [address] [place], [place] [phone] 10/09/2025 2:00 PM EST Office Visit [facility] OPTOMETRY [address] [place], [place] [phone] Romaine, Lani, OD [address] [place] [address] 11/23/2025 3:00 PM EST Office Visit [facility] ADULT DENTAL [address] [place], [place] [phone] Yisel Griffith documented as of this encounter Visit Diagnoses Diagnosis Chronic pain of both knees Acute pain of left shoulder documented in this encounter Additional Health Concerns Assessment Noted Time PHQ-9 Depression Total Score: 15 12/12/ 023 2:22 PM EST documented as of this encounter Care Teams Scientific Systems Analyst Relationship Specialty Start Date End Date Diamond Blake MD [address] [place], [place] [phone] PCP - General Internal Medicine 06/30/23 Zechariah Bradley TagmanFurniture Lumber Production Worker 03/23/24 documented as of this encounter
== END 2025-07-13 12:54 | disposition home or self-care (01) ==
LOC: HO.US 12:53
PROVIDERS: PCP Student in an Organized Health Care Education/Training Program; Visit Provider Nurse Practitioner Family
DX: N20.0 Calculus of kidney (principal)
CPT/HCPCS: 76775

== ENCOUNTER → 2025-07-13 12:55 | Outpatient (BNV) | payer OTHER, SELFPAY | PROVIDERS: PCP Student in an Organized Health Care Education/Training Program; Visit Provider Radiology Diagnostic Radiology | DX: N28.1 Cyst of kidney, acquired (principal) | CPT/HCPCS: 76775 ==

== ENCOUNTER 2025-07-17 11:29 | Outpatient (REF) | payer MEDICAID, SELFPAY | END 2025-07-17 11:30 | disposition home or self-care (01) | LOC: HO.LAB 11:29 | PROVIDERS: PCP Internal Medicine; Visit Provider Nurse Practitioner Family | DX: N20.0 Calculus of kidney (principal); R31.29 Other microscopic hematuria; Z13.89 Encounter for screening for other disorder | CPT/HCPCS: 88112; 99212 ==

== ENCOUNTER 2025-07-17 11:29 | Outpatient (AMB) | payer MEDICAID, SELFPAY ==
--- NOTE | 2025-07-17 11:33 | A.OFFVIS_ITS ---
Intake Visit Reasons: 6m/US Intake Note: patient presents today for: 6m/US urology medications: vit b6 blood thinners: none US done: 07/13/25 Medical Technologist Chemistry Required: Yes Medical Technologist Chemistry Services: Medical Technologist Chemistry Present Medical Technologist Chemistry Name: Heidi Accompanied by: Daughter Allergies animal dander Allergy (Verified 07/17/25 11:52) Rash tree and shrub pollen Allergy (Verified 07/17/25 11:52) Rash Medication List - Last Reconciled 07/17/25 by TOM Huitron albuterol sulfate 90 mcg/actuation (Ventolin HFA) 2 puffs inhalation QID PRN 30 days albuterol sulfate 2.5 mg (3 mL) inhalation Q4-6H PRN ammonium lactate 12% appl topical atorvastatin 10 mg PO QAM calcium citrate 500 mg (2 x 250 mg calcium) PO BID cholecalciferol (vitamin D3) (Vitamin D3) 50 mcg PO DAILY compress.stocking,knee,reg,med 15-20 cm cyclobenzaprine 10 mg PO TID PRN diphenhydramine HCl (Benadryl Allergy) 50 mg PO Q8H PRN epinephrine 0.3 mg (0.3 mL) IM .q 10min x2 fluticasone propionate 50 mcg/actuation 2 sprays intranasal DAILY akazevubafe-bnukrjzfv-xyyszxct 200-62.5-25 mcg (Trelegy Ellipta) 1 ea inhalation DAILY furosemide (Lasix) 20 mg PO DAILY 7 days hydrochlorothiazide 25 mg PO DAILY hydroxyzine HCl 25 mg PO TID PRN 7 days ibuprofen 800 mg PO Q8H PRN levothyroxine 125 mcg PO DAILY loratadine 10 mg PO QAM magnesium oxide 400 mg PO BEDTIME melatonin 5 mg PO BEDTIME PRN 30 days montelukast 10 mg PO QPM 30 days naproxen 500 mg PO BID 30 days nebulizers As directed omalizumab (Xolair) 75 mg (0.5 mL) subcut Q2W 28 days omalizumab (Xolair) 150 mg subcut Q2W 28 days pyridoxine (vitamin B6) 100 mg PO DAILY 90 days sennosides (senna) 17.2 mg PO BEDTIME PRN sertraline 25 mg PO QAM triamcinolone acetonide 0.1% appl topical BID HPI Comments Details: Diamond is a pleasant 64-year-old Bulgarian-speaking female patient of Dr. Weinstein who was accompanied by her daughter at today's office visit. She has a past medical history of nephrolithiasis, sleep apnea, pulmonary nodules, asthma, hypertension, osteopenia, and Fernando's disease. She presents to the office for follow-up regarding her nephrolithiasis. In discussion with the patient today she reports to be doing and feeling well. She denies having had any bothersome urinary issues or concerns since her last office visit here. Recent renal ultrasound results reviewed with the patient today. Bilateral renal cyst s. Multiple left renal echogenic foci likely renal calculi can not exclude interlobular vessels. When asked she reports to be drinking plenty of water daily and reports compliance with vitamin B6. She denies urinary urgency, urinary frequency, incontinence, nocturia, hematuria, changes to urinary stream, fever, and or chills. In office urinalysis results reviewed with the patient today. When asked she denies any previous history of nicotine dependence and or workplace chemical exposure. We discussed importance of hydration given history of nephrolithiasis as well as for overall health and well-being. We discussed potential causes of nephrolithiasis as well as microscopic hematuria. We discussed further workup and interventions and risks and benefits of these interventions. All questions were answered. She otherwise offers no other issues or concerns at this time. Previous urine cytologies are as follows: 04/11 & 09/10 Negative for high-grade urothelial carcinoma 01/08: Few atypical urethral cells 01/08: Atypical PFSH Medical History Snoring Renal calculi Limb swelling Sleep apnea Hx of renal calculi Pulmonary nodules Chronic allergic rhinitis Asthma Hypertension Non-toxic multinodular goiter Osteopenia Fernando's disease Hypothyroidism History of primary hyperparathyroidism Surgical History Hx of hand surgery Status post fine needle aspiration Hx of cystoscopy Hx of lithotripsy History of surgery on arm Hx of parathyroidectomy H/O partial thyroidectomy Hx of tubal ligation Family History Maternal Grandmother Diabetes Father No problems noted. Mother Hypertension Asthma Social History Are you a primary gericare aide teacher to a significant other at home: No Do you presently have visiting nurse or other home services: No Alcohol intake: never Patient Tobacco Use Status: Never used Tobacco Current occupational status: disabled Current occupation: right hand dominant Review of Systems Const Reports no additional complaints Eyes Reports no additional complaints ENT Reports no additional complaints Card Reports as per HPI Resp Reports as per HPI GI Reports no additional complaints Reports as per HPI Musc Reports as per HPI Neuro Reports no additional complaints Psych Reports no additional complaints Endo Reports as per HPI Cheko/Lymph Reports no additional complaints Aller/Immun Reports no additional complaints Physical Exam Const General: cooperative, healthy appearing, comfortable, no acute distress, well developed, alert and awake Nutritional Appearance: overweight Orientation/consciousness: patient oriented x3 Limitations: language barrier HEENT Head: Yes normal to inspection, Yes normocephalic and Yes atraumatic Ears: hearing grossly normal bilaterally Eyes General: appearance normal, both eyes and all related structures Neck Neck: Yes normal visual inspection and Yes trachea midline Chest Chest palpation & inspection: normal inspection of the chest Resp Effort & Inspection: normal respiratory effort and able to speak in complete sentences Cardio Rate: regular rate GI Inspection: Yes normal to inspection General: Yes no CVA tenderness Back/Spine/Pelvis Back: no CVA tenderness Skin General skin exam: no rashes or lesions noted Neuro General: patient oriented x3 Extrem General: Yes normal to inspection Psych Appearance: grossly normal and well kempt Mental Status: mental status grossly normal Speech and movement: Normal speech and movement present and Clear speech present Affect: normal affect Attitude: cooperative Thought process: Normal thought process present Thought content: Normal thought content present Insight: Fair insight present (Psych) Judgement: Fair judgement present (Psych) Results Reviewed Results Reviewed: Date of Service: 07/13/25 Procedure(s): US renal BI Findings: Right kidney normal size and echotexture, 10.8 cm length. There is a 0.9 x 0.8 x 1.1 cm right renal cyst. Left kidney normal size and echotexture, 10.8 cm length. There is a 1.3 x 1 x 0.9 cm left renal cyst. There is stable right renal scarring. No hydronephrosis of either kidney. Normal color Doppler there are multiple left renal echogenic foci largest measuring 5 mm. There is a right hepatic lobe cyst which measures 1.8 x 1.2 x 1.6 cm. IMPRESSION: Bilateral renal cysts Multiple left renal echogenic foci likely renal calculi can not exclude and/or interlobar vessels 1.8 x 1.2 x 1.6 cm incidentally noted right hepatic lobe cyst Assessment & Plan Assessment & Plan (1) Renal calculi: Code(s): N20.0 - Calculus of kidney Category: Medical (2) Microhematuria: Code(s): R31.29 - Other microscopic hematuria Category: Medical Plan In office urinalysis results reviewed with the patient today; as noted above. Recent renal imaging results with the patient today; as noted above. We discussed the importance of adequate hydration relation to nephrolithiasis as well as overall health and well-being. Continue adding 1 oz of lemon juice to water daily. Continue vitamin B6 as discussed and prescribed; refill provided. She currently denies any bothersome urinary issues. She reports be happy with current voiding parameters. All questions were answered. Will continue with surveillance monitoring. Will obtain renal ultrasound in 6 months. Follow-up in 6 months with imaging to be completed prior; or sooner with any issues, concerns, and or questions. Orders: Orders AMB Urinalysis Automated Today Z13.9 - Encounter for screening, unspecified US renal BI 6 Months N20.0 - Calculus of kidney Urine Cytology Today R31.29 - Other microscopic hematuria Patient Instructions: The patient had an opportunity to ask questions regarding the treatment plan. All questions were answered. Physical exam, labs, and imaging were discussed and reviewed in detail. As well as risks, benefits, and discussion of treatment choices. No major barriers to understanding were identified. The patient expressed understanding and agreement with the above treatment plan. The patient was made aware they should contact our office by phone for worsening of their current condition, the appearance of new symptoms, or with any questions or concerns. Compliance is encouraged with any medications and follow up testing that is ordered. It is a privilege to be allowed the opportunity to participate in? your urological care.? Again, if you have any questions or concerns If you have any questions or concerns please do not hesitate to contact me. The office is [phone]. This note is constructed using voice recognition software. While every effort has been made to ensure accuracy lurer errors may have been included. Yours sincerely, Zeina Ribeiro, CREDIT CONTROL CLERK-BC Coding Level of Care Code Est Pt Level 3 (88666) Complex EM visit Add On G2211 Diagnoses Renal calculi N20.0 Microhematuria R31.29
== END 2025-07-17 11:53 | disposition home or self-care (01) ==
LOC: HO.HUSH 11:29
PROVIDERS: PCP Internal Medicine; Visit Provider Nurse Practitioner Family
DX: N20.0 Calculus of kidney (principal); R31.29 Other microscopic hematuria
CPT/HCPCS: 99213

== ENCOUNTER 2025-09-18 11:13 | Outpatient (AMB) | payer OTHER, SELFPAY ==
[2025-09-18 11:45] VITALS: BMI 32.3
--- NOTE | 2025-09-18 11:45 | MHC.AMNUTRGE ---
VS Expanded 09/18/25 11:45 09/18/25 11:51 Height 5 ft 2 in 5 ft 2 in Weight 176 lb 8 oz 176 lb BMI 32.3 32.2 Intake Visit Reasons: Obesity Allergies animal dander Allergy (Verified 07/17/25 11:52) Rash tree and shrub pollen Allergy (Verified 07/17/25 11:52) Rash Nutrition Presentation Details: Pt presents for MNT for obesity Pt reports she is on zepbound 12.5 mg/dl and has lost about 80 lbs (rate of 3 lbs per week) Pt reports keeping physically active- uses bike peddler 60 minutes a day Fluid intake: Reports choosing water and low sugar beverages about 36-48 oz a day Patient reports having reduced appetite since starting zepbound , reports having 2 sometimes 3 meals a day in smaller portions. Reports definitely reducing on snacks and empty calorie Patient is illiterate, understands basic math food frequency fish:0- 2/wk Fruits: 0-1 a day Vegetables 0 to 2 times a week Dairy 1-2 a day Bike pedlars 30-45 min 4 x/wk Reports taking the following supplements: Vitamin d3, vitamin b6, calcium 250 mg/d Alcohol intake: Denies BS Monitoring Most Recent Diabetes Results: Creatinine, (0.5-1.4) 0.73 mg/dL 07/07/25 BUN, (9-16) 12 mg/dL 07/07/25 Sodium, (135-145) 140 mmol/L 07/07/25 Potassium, (3.3-5.1) 3.4 mmol/L 07/07/25 Chloride, (96-108) 104 mmol/L 07/07/25 Carbon Dioxide, (22-29) 31 mmol/L H 07/07/25 Calcium, (8.4-10.2) 9.6 mg/dL 07/07/25 YLT-Beoljbx-Iv.Jeor Equation Height: 5 ft 2 in Weight: 176 lb Resting Metabolic Rate: 1300.97 Calculated Activity Level: Mild Activity Calories Needed to Maintain Weight: 1788.83 Diagnosis Nutrition problem #1: overweight/obesity As related to (etiology) #1: lack of nutrit education As evidenced by (sign/symptom) #1: knowledge deficit of diet PFSH Medical History Snoring Renal calculi Limb swelling Sleep apnea Hx of renal calculi Pulmonary nodules Chronic allergic rhinitis Asthma Hypertension Non-toxic multinodular goiter Osteopenia Fernando's disease Hypothyroidism History of primary hyperparathyroidism Surgical History Hx of hand surgery Status post fine needle aspiration Hx of cystoscopy Hx of lithotripsy History of surgery on arm Hx of parathyroidectomy H/O partial thyroidectomy Hx of tubal ligation Family History Maternal Grandmother Diabetes Father No problems noted. Mother Hypertension Asthma Social History Are you a primary care administrative tech to a significant other at home: No Do you presently have visiting nurse or other home services: No Alcohol intake: never Patient Tobacco Use Status: Never used Tobacco Current occupational status: disabled Current occupation: right hand dominant Assessment & Plan Assessment & Plan (1) Obesity (BMI 30-39.9): Code(s): E66.9 - Obesity, unspecified Category: Medical Plan: current wt: 80 kg ( September/2025 ) est kcal needs as per MSJ: 1800 est protein needs as per 1 g/kg BW: 80 est fluid needs as per 30 ml/kg BW: 2400 Recommended fiber > 12 g /day and gradually increase up to 25-28 g /day or as tolerated Recommend less than 2300 mg of sodium per day unless otherwise specified by MD Nutrition topics discussed : Reviewed (R), Pt verbalized understanding (V) , not applicable (N/A) R, : Healthy Plate Method Concept: R, V, N/A: Carbohydrates: food sources of carbohydrates, relationship of carbohydrates to blood glucose, fatty liver GI health. Recommended total amount of carbohydrates per meals and snack. Differences between simple carbohydrates and complex carbohydrates R, V, N/A: Lean protein foods including vegan , vegetarian sources of protein. Benefits of protein (including but not limited to healing, nutritional value , benefits in weight loss, glucose control R, V, N/A: Fats : Source of fats, benefits of fats. Difference between saturated and unsaturated fats. Saturated fats and its contribution to inflammation R, : Fiber: food sources and role of fiber in the diet (including but not limited to its role as a prebiotic, benefits in constipation, role in IBS , role in glucose control and cholesterol level) R, V: Hydration: role of hydration and prevention of dehydration or over hydration. Foods and water content. R, V, N/A: Vitamins and Minerals in foods and supplements R, V, N/A: Interpreting food labels, including serving size, macronutrients, vitamins, minerals, allergens, ingredient list , % daily value Patient Instructions: Have a meal replacement at lunchtime instead of skipping lunch Follow healthy plate method at dinner; include 2 oz of protein, 1 cup of milk, half a cup of starchy vegetables and half a cup of non starchy vegetables Coding Level of Care Code Nutr Indiv Intake (74883) Diagnoses Obesity (BMI 30-39.9) E66.9 Time Spent (min) 30
[2025-09-18 11:51] VITALS: BMI 32.2
--- OUTSIDE RECORDS SUMMARY | 2025-09-18 14:41 | XMS_ITS | Encounter Summary ---
Author Organization [employer] Address [address] [facility] 7t [place] [address] Care Team Providers Care Dairy Chemist Name Role Phone Diamond Blake MD Primary Care Pro vider Reason for Visit * Reason Comments Med Refill Encounter Details Date Type Department Care Team ([facility] st Contact Info) Description 01/29/2024 Refill [facility] WALK-IN CENTER [address] [place] [address] Diamond Blake MD 230 [place] [address] Social History Tobacco Use Types Packs/Day Years [...] Care Team (Late st Contact Info) Description 10/09/2025 2:00 PM EST Office Visit [facility] OPTOMETRY [address] [place] [address] Romaine, Lani, OD 230 [place] [address] 11/23/2025 2:15 PM EST Office Visit [facility] ADULT DENTAL [address] [place] [address] Yisel Griffith 12/01/2025 2:00 PM EST Office Visit [facility] MEDICINE [address] [place] [address] Diamond Blake MD [address] [place] [address] documented as of this encounter Visit Diagnoses Not on filedocumented in this encounter Additional Health Concerns Assessment Noted Time PHQ-9 Depression Total Score: 12 023 11:15 AM EST documented as of this encounter Care Teams Dairy Chemist Relationship Specialty Start Date End Date Diamond Blake MD [address] [place] [address] [phone] PCP - General Internal Medicine 06/30/23 Zechariah Bradley Card BrusherConsulting Manager 03/23/24 documented as of this encounter
--- OUTSIDE RECORDS SUMMARY | 2025-09-18 14:41 | XMS_ITS | Encounter Summary ---
Author Organization [employer] Address [address] [facility] 7t [place] [address] Care Team Providers Care Client Account Manager Name Role Phone Diamond Blake MD Primary Care Pro vider Reason for Visit * Reason Onset Date Comments Med Refill 07/07/2023 Encounter Details Date Type Department Care Team (Late st Contact Info) Description 07/07/2023 Refill [facility] WALK-IN CENTER [address] [place] [address] Otoniel Bella MD 230 [place] [address] Chronic pain of both knees; Acute pain [...] Description 10/09/2025 2:00 PM EST Office Visit [facility] OPTOMETRY [address] [place] [address] Lani Gavin, OD 230 [place] [address] 11/23/2025 2:15 PM EST Office Visit [facility] ADULT DENTAL [address] [place], [place] [phone] Yisel Griffith 12/01/2025 2:00 PM EST Office Visit [facility] MEDICINE [address] [place], [place] [phone] Diamond Blake MD 230 [place], [place] [phone] documented as of this encounter Visit Diagnoses Diagnosis Chronic pain of both knees Acute pain of left shoulder documented in this encounter Additional Health Concerns Assessment Noted Time PHQ-9 Depression Total Score: 15 12/12/ 023 2:22 PM EST documented as of this encounter Care Teams Client Account Manager Relationship Specialty Start Date End Date Diamond Blake MD [address] [place] [address] [phone] PCP - General Internal Medicine 06/30/23 Zechariah Bradley Sales Representative Canvas ProductsMultimedia Authoring Specialist 03/23/24 documented as of this encounter
--- OUTSIDE RECORDS SUMMARY | 2025-09-18 14:41 | XMS_ITS | Encounter Summary ---
Author Organization [employer] Address 75 [facility] 7t [place] [address] Care Team Providers Care Religion Professor Name Role Phone Kailash Trevizo Primary Care Provider Unavail able Diamond Blake MD Primary Care Pro vider Encounter Details Date Type Department Care Team (Late st Contact Info) Description 06/02/2023 Abstract [facility] ADULT DENTAL [address] [place] [address] Ryan Jennie 230 [place] [address] Social History Tobacco Use Types Packs/Day Years [...] Description 10/09/2025 2:00 PM EST Office Visit [facility] OPTOMETRY [address] [place] [address] Romaine, Lani, OD 230 [place] [address] 11/23/2025 2:15 PM EST Office Visit [facility] ADULT DENTAL [address] [place] [address] Yisel Griffith 12/01/2025 2:00 PM EST Office Visit [facility] MEDICINE [address] [place] [address] Diamond Blake MD 230 [place] [address] documented as of this encounter Visit Diagnoses Not on filedocumented in this encounter Additional Health Concerns Assessment Noted Time PHQ-9 Depression Total Score: 15 12/12/ 023 2:22 PM EST documented as of this encounter Care Teams Religion Professor Relationship Specialty Start Date End Date Kailash Trevizo AGNP PCP - General Family Medicine 11/13/22 06/29/23 Diamond Blake MD [address] [place] [phone] PCP - General Internal Medicine 06/30/23 Zechariah Bradley Field Pipelines SupervisorFarmworker Cranberry 03/23/24 documented as of this encounter
--- OUTSIDE RECORDS SUMMARY | 2025-09-18 14:41 | XMS_ITS | Encounter Summary ---
Author Organization [employer] Address 75 [facility] 7 [place] [address] Care Team Providers Care Learning Support Aide Name Role Phone Diamond Blake MD Primary Care Pro vider Reason for Visit * Reason Comments Med Refill Encounter Details Date Type Department Care Team ([facility] st Contact Info) Description 05/22/2025 Refill [facility] MEDICINE 230 [place] [address] Diamond Blake MD [address] [place] [address] Obesity (BMI 30-39.9); Prediabetes Social History Tobacco [...] [facility] [address] [place] [address] Lani Gavin, OD 230 [place] [address] 11/23/2025 2:15 PM EST Office Visit [facility] ADULT DENTAL [address] [place] [address] Yisel Griffith 12/01/2025 2:00 PM EST Office Visit [facility] MEDICINE [address] [place], [place] [phone] Diamond Blake MD [address] [place] [address] documented as of this encounter Visit Diagnoses Diagnosis Obesity (BMI 30-39.9) Prediabetes Other abnormal glucose documented in this encounter Additional Health Concerns Assessment Noted Time PHQ-9 Depression Total Score: 14 024 9:42 AM EDT documented as of this encounter Care Teams Learning Support Aide Relationship Specialty Start Date End Date Diamond Blake MD [address] [place] [address] PCP - General Internal Medicine 06/30/23 Zechariah Bradley Volunteer Services DirectorHris Manager 03/23/24 documented as of this encounter
--- OUTSIDE RECORDS SUMMARY | 2025-09-18 14:41 | XMS_ITS | Encounter Summary ---
Author Organization [employer] Address 75 [facility] 7t [place] [address] Care Team Providers Care Hardwood Floor Layer Name Role Phone Diamond Blake MD Primary Care Pro vider Reason for Visit * Reason Comments Med Refill Encounter Details Date Type Department Care Team ([facility] st Contact Info) Description 06/08/2025 Refill [facility] WALK-IN CENTER [address] [place] [address] Diamond Blake MD 230 [place] [address] Mild intermittent asthma with acute exacerbation Social [...] Description 10/09/2025 2:00 PM EST Office Visit [facility] OPTOMETRY [address] [place] [address] Lani Gavin, OD 230 [place] [address] 11/23/2025 2:15 PM EST Office Visit [facility] ADULT DENTAL [address] [place] [address] Yisel Griffith 12/01/2025 2:00 PM EST Office Visit [facility] MEDICINE [address] [place] [address] Diamond Blake MD [address] [place] [address] documented as of this encounter Visit Diagnoses Diagnosis Mild intermittent asthma with acute exacerbation documented in this encounter Additional Health Concerns Assessment Noted Time PHQ-9 Depression Total Score: 14 024 9:42 AM EDT documented as of this encounter Care Teams Hardwood Floor Layer Relationship Specialty Start Date End Date Diamond Blake MD [address] [place] [phone] PCP - General Internal Medicine 06/30/23 Zechariah Bradley Single End SewerMail Order Biller 03/23/24 documented as of this encounter
--- OUTSIDE RECORDS SUMMARY | 2025-09-18 14:41 | XMS_ITS | Encounter Summary ---
Author Organization [employer] Address 75 [facility] 7t [place] [address] Care Team Providers Care Valet Service Attendant Name Role Phone Diamond Blake MD Primary Care Pro vider Reason for Visit * Reason Comments Med Refill Encounter Details Date Type Department Care Team ([facility] st Contact Info) Description 10/24/2024 Refill [facility] MEDICINE 230 [place] [address] Diamond Blake MD 230 [place] [address] Social History Tobacco Use Types Packs/Day Years [...] Description 10/09/2025 2:00 PM EST Office Visit [facility] OPTOMETRY [address] [place] [address] Romaine, Lani, OD 230 [place] [address] 11/23/2025 2:15 PM EST Office Visit [facility] ADULT DENTAL 230 [place] [address] Yisel Griffith 12/01/2025 2:00 PM EST Office Visit [facility] MEDICINE 230 [place] [address] Diamond Blake MD [address] [place] [address] documented as of this encounter Visit Diagnoses Not on filedocumented in this encounter Additional Health Concerns Assessment Noted Time PHQ-9 Depression Total Score: 14 024 9:42 AM EDT documented as of this encounter Care Teams Valet Service Attendant Relationship Specialty Start Date End Date Diamond Blake MD 230 [place] [address] PCP - General Internal Medicine 06/30/23 Zechariah Bradley Throw Out ClerkJunior Paralegal 03/23/24 documented as of this encounter
--- OUTSIDE RECORDS SUMMARY | 2025-09-18 14:41 | XMS_ITS | Encounter Summary ---
Author Organization [employer] Address [address] [facility] [address] 7t [place] [address] Care Team Providers Care Coding Specialist Name Role Phone Diamond Blake MD Primary Care Pro vider Reason for Visit * Reason Onset Date Comments Med Refill 09/28/2023 Encounter Details Date Type Department Care Team (Late st Contact Info) Description 09/28/2023 Refill [facility] CHC MED & PEDS [address] [place] [address] Zaida Christy MD 230 [place] [address] Hypertension, unspecified type Social History Tobacco Use [...] Description 10/09/2025 2:00 PM EST Office Visit [facility] OPTOMETRY [address] [place] [address] Romaine, Lani, OD 230 [place] [address] 11/23/2025 2:15 PM EST Office Visit [facility] ADULT DENTAL [address] [place] [address] Uriah Griffithsa 12/01/2025 2:00 PM EST Office Visit [facility] MEDICINE [address] [place] [address] Diamond Blake MD [address] [place] [address] documented as of this encounter Visit Diagnoses Diagnosis Hypertension, unspecified type documented in this encounter Additional Health Concerns Assessment Noted Time PHQ-9 Depression Total Score: 15 023 2:22 PM EST documented as of this encounter Care Teams Coding Specialist Relationship Specialty Start Date End Date Diamond Blake MD [address] [place] [phone] PCP - General Internal Medicine 06/30/23 Zechariah Bradley Maintenance SupervisorArea Mechanic 03/23/24 documented as of this encounter
--- OUTSIDE RECORDS SUMMARY | 2025-09-18 14:41 | XMS_ITS | Encounter Summary ---
Author Organization [employer] Address [address] [place] [address] 7 [place] [address] Care Team Providers Care Plant Taxonomy Teacher Name Role Phone Diamond Blake MD Primary Care Pro vider Reason for Visit * Reason Comments Med Refill Encounter Details Date Type Department Care Team (Late st Contact Info) Description 07/06/2023 Refill [facility] MEDICINE [address] [place] [address] Kailash Trevizo AGNP Hypertension, unspecified type Social [...] PM EST Office Visit [facility] OPTOMETRY [address] [place] [address] Romaine, Lani, OD 230 [place] [address] 11/23/2025 2:15 PM EST Office Visit [facility] ADULT DENTAL 230 [place] [address] Yisel Griffith 12/01/2025 2:00 PM EST Office Visit [facility] MEDICINE [address] [place] [address] Diamond Blake MD [address] [place] [address] documented as of this encounter Visit Diagnoses Diagnosis Hypertension, unspecified type documented in this encounter Additional Health Concerns Assessment Noted Time PHQ-9 Depression Total Score: 15 023 2:22 PM EST documented as of this encounter Care Teams Plant Taxonomy Teacher Relationship Specialty Start Date End Date Diamond Blake MD [address] [place] [address] PCP - General Internal Medicine 06/30/23 Zechariah Bradley Merry Go Round OperatorOccupational Health Nurse 03/23/24 documented as of this encounter
--- OUTSIDE RECORDS SUMMARY | 2025-09-18 14:41 | XMS_ITS | Encounter Summary ---
Author Organization [employer] Address [address] [place] [address] 7t [place] [address] Care Team Providers Care Behavioral School Counselors Name Role Phone Diamond Blake MD Primary Care Pro vider Reason for Visit * Reason Onset Date Comments Med Refill 07/07/2023 Encounter Details Date Type Department Care Team (Late st Contact Info) Description 07/07/2023 Refill [facility] CHC MED & PEDS [address] [place] [address] Lay Avila MD [address] [place] [address] Social History Tobacco Use Types Packs/Day Years [...] Department Care Team (Late Contact Info) Description 10/09/2025 2:00 PM EST Office Visit [facility] OPTOMETRY [address] [place] [address] Lani Gavin, OD 230 [place] [address] 11/23/2025 2:15 PM EST Office Visit [facility] ADULT DENTAL [address] [place] [address] Yisel Griffith 12/01/2025 2:00 PM EST Office Visit [facility] MEDICINE [address] [place] [address] Diamond Blake MD [address] [place] [address] documented as of this encounter Visit Diagnoses Not on filedocumented in this encounter Additional Health Concerns Assessment Noted Time PHQ-9 Depression Total Score: 15 023 2:22 PM EST documented as of this encounter Care Teams Behavioral School Counselors Relationship Specialty Start Date End Date Diamond Blake MD [address] [place] [address] [phone] PCP - General Internal Medicine 06/30/23 Zechariah Bradley Bingo CheckerConstruction Technician 03/23/24 documented as of this encounter
--- OUTSIDE RECORDS SUMMARY | 2025-09-18 14:41 | XMS_ITS | Encounter Summary ---
Author Organization [employer] Address [address] [place] [address] 7 [place] [address] Care Team Providers Care Hydraulic Boom Operator Name Role Phone Diamond Blake MD Primary Care Pro vider Reason for Visit * Reason Onset Date Comments Med Refill 07/08/2023 Encounter Details Date Type Department Care Team (Late st Contact Info) Description 07/08/2023 Refill [facility] MEDICINE [address] [place] [address] Diamond Blake MD [address] [place] [address] Severe chronic obstructive pulmonary disease (CMS/HCC); Hypertension, [...] Description 10/09/2025 2:00 PM EST Office Visit [facility] OPTOMETRY [address] [place], [place] [phone] Lani Gavin, OD 230 [place] [address] 11/23/2025 2:15 PM EST Office Visit [facility] ADULT DENTAL [address] [place], [place] [phone] Yisel Griffith 12/01/2025 2:00 PM EST Office Visit [facility] MEDICINE [address] [place] [address] Diamond Blake MD [address] [place] [address] documented as of this encounter Visit Diagnoses Diagnosis Severe chronic obstructive pulmonary disease (CMS/HCC) (HCC) Chronic airway obstruction, not elsewhere classified Hypertension, unspecified type Hyperlipidemia, unspecified hyperlipidemia type Chronic pain of both knees Acute pain of left shoulder documented in this encounter Additional Health Concerns Assessment Noted Time PHQ-9 Depression Total Score: 15 023 2:22 PM EST documented as of this encounter Care Teams Hydraulic Boom Operator Relationship Specialty Start Date End Date Diamond Blake MD [address] [place], [place] [phone] PCP - General Internal Medicine 06/30/23 Zechariah Bradley Contract Associate ManagerGreeting Card Maker 03/23/24 documented as of this encounter
--- OUTSIDE RECORDS SUMMARY | 2025-09-18 14:41 | XMS_ITS | Encounter Summary ---
Author Organization [employer] Address 75 [facility] 7t [place] [address] Care Team Providers Care Medical Numerical Control Operator Name Role Phone Diamond Blake MD Primary Care Pro vider Reason for Visit * Reason Comments Med Refill Encounter Details Date Type Department Care Team ([facility] st Contact Info) Description 10/25/2024 Refill [facility] MED [facility] PEDS [address] [place] [address] Diamond Blake MD [address] [place] [address] Hypertension, unspecified type Social History Tobacco Use [...] Description 10/09/2025 2:00 PM EST Office Visit [facility] OPTOMETRY [address] [place] [address] Romaine, Lani, OD 230 [place] [address] 11/23/2025 2:15 PM EST Office Visit [facility] ADULT DENTAL [address] [place] [address] Yisel Griffith 12/01/2025 2:00 PM EST Office Visit [facility] MEDICINE [address] [place] [address] Diamond Blake MD 230 [place] [address] documented as of this encounter Visit Diagnoses Diagnosis Hypertension, unspecified type documented in this encounter Additional Health Concerns Assessment Noted Time PHQ-9 Depression Total Score: 14 024 9:42 AM EDT documented as of this encounter Care Teams Medical Numerical Control Operator Relationship Specialty Start Date End Date Diamond Blake MD [address] [place] [phone] PCP - General Internal Medicine 06/30/23 Zechariah Bradley Manager PowerWholesale Account Manager 03/23/24 documented as of this encounter
--- OUTSIDE RECORDS SUMMARY | 2025-09-18 14:41 | XMS_ITS | Encounter Summary ---
Author Organization [employer] Address [address] [place] [address] Care Team Providers Care Medical Csr Name Role Phone Kailash Trevizo Primary Care Provider Unavail able Diamond Blake MD Primary Care Pro vider Reason for Visit * Reason Comments Med Refill Encounter Details Date Type Department Care Team (Late st Contact Info) Description 02/11/2023 Refill [facility] WALK[facility]ENTER [address] [place] [address] Otoniel Bella MD [address] [place] [address] Chronic pain of both knees; Acute pain [...] Description 10/09/2025 2:00 PM EST Office Visit [facility] OPTOMETRY [address] [place] [address] Lani Gavin, OD [address] [place] [address] 11/23/2025 2:15 PM EST Office Visit [facility] ADULT DENTAL [address] [place], [place] [phone] Yisel Griffith 12/01/2025 2:00 PM EST Office Visit [facility] MEDICINE [address] [place], [place] [phone] Diamond Blake MD [address] [place], [place] [phone] documented as of this encounter Visit Diagnoses Diagnosis Chronic pain of both knees Acute pain of left shoulder documented in this encounter Additional Health Concerns Assessment Noted Time PHQ-9 Depression Total Score: 15 12/12/ 023 2:22 PM EST documented as of this encounter Care Teams Medical Csr Relationship Specialty Start Date End Date Kailash Trevizo AGNP PCP - General Family Medicine 11/13/22 06/29/23 Diamond Blake MD [address] [place] [id number] PCP - General Internal Medicine 06/30/23 Zechariah Bradley Creative PerfumerRn Hematology 03/23/24 documented as of this encounter
--- OUTSIDE RECORDS SUMMARY | 2025-09-18 14:41 | XMS_ITS | Encounter Summary ---
Author Organization [employer] Address [address] [place] [address] Care Team Providers Care Paper Winder Name Role Phone Diamond Blake MD Primary Care Pro vider Reason for Visit * Reason Comments Med Refill Encounter Details Date Type Department Care Team ([facility] st Contact Info) Description 04/27/2025 Refill [facility] WALK[facility] [address] [place] [address] Elizabeth Pires MD [address] [place] [address] Mild intermittent asthma with acute exacerbation Social [...] Description 10/09/2025 2:00 PM EST Office Visit [facility] OPTOMETRY [address] [place] [address] Lani Gavin, OD [address] [place] [address] 11/23/2025 2:15 PM EST Office Visit [facility] ADULT DENTAL [address] [place] [address] Yisel Griffith 12/01/2025 2:00 PM EST Office Visit [facility] MEDICINE [address] [place] [address] Diamond Blake MD [address] [place] [address] documented as of this encounter Visit Diagnoses Diagnosis Mild intermittent asthma with acute exacerbation documented in this encounter Additional Health Concerns Assessment Noted Time PHQ-9 Depression Total Score: 14 024 9:42 AM EDT documented as of this encounter Care Teams Paper Winder Relationship Specialty Start Date End Date Diamond Blake MD [address] [place] [phone] PCP - General Internal Medicine 06/30/23 Zechariah Bradley Pipe Line RepairerInsurance Billing Specialist 03/23/24 documented as of this encounter
--- OUTSIDE RECORDS SUMMARY | 2025-09-18 14:42 | XMS_ITS | Encounter Summary ---
Author Organization [employer] Address [address] [place] [address] [address] [place] [address] Care Team Providers Care Patient Services Technician Name Role Phone Diamond Blake MD Primary Care Pro vider Reason for Visit * Reason Onset Date Comments Med Refill 07/07/2023 Encounter Details Date Type Department Care Team (Late st Contact Info) Description 07/07/2023 Refill [facility] [address] [place] [address] Lay Avila MD [address] [place] [address] Social History Tobacco Use Types Packs/Day Years [...] Description 10/09/2025 2:00 PM EST Office Visit [facility] OPTOMETRY [address] [place] [address] Lani Gavin, OD [address] [place] [address] 11/23/2025 2:15 PM EST Office Visit [facility] ADULT DENTAL [address] [place] [address] Yisel Griffith 12/01/2025 2:00 PM EST Office Visit [facility] MEDICINE [address] [place] [address] Diamond Blake MD [address] [place] [phone] documented as of this encounter Visit Diagnoses Not on filedocumented in this encounter Additional Health Concerns Assessment Noted Time PHQ-9 Depression Total Score: 15 023 2:22 PM EST documented as of this encounter Care Teams Patient Services Technician Relationship Specialty Start Date End Date Diamond Blake MD [address] [place] [address] [phone] PCP - General Internal Medicine 06/30/23 Zechariah Bradley Em PhysicianPicker Machine Operator 03/23/24 documented as of this encounter
--- OUTSIDE RECORDS SUMMARY | 2025-09-18 14:42 | XMS_ITS | Clinical Summary ---
Author Organization [employer] Address [address] [place] [address] Care Team Providers Care Rn Lactation Consultant Name Role Phone Diamond Blake MD Primary [...] tabletIndication s:Severe chronic obstructive pulmonary disease (CMS/HCC) (HCC) TAKE 1 TABLET BY MOUTH EVERY EVENING 90 tablet 1 024 Active levothyroxine (Synthroid, Levoxyl) 125 MCG [...] daily. 60 tablet 5 025 2025 Active cholecalciferol (D3 Super Strength) 50 MCG (2000 UT) capsule TAKE 1 CAPSULE BY MOUTH EVERY MORNING 90 capsule 1 025 Active atorvastatin (Lipitor) 10 MG tabletIndication s:Hyperlipidemia , unspecified hyperlipidemia type TAKE 1 TABLET BY MOUTH EVERY DAY 90 tablet 025 Active Tirzepatide-Weig ht Management (Zepbound) 15 MG/0.5ML solution auto-injectorInd ications:Obesity (BMI 30-39.9) Inject 0.5 mL (15 mg) as directed 1 (one) time per week. INJECT ONE PEN (=15 MG) SUBCUTANEOUSLY ONCE A WEEK 2 mL 3 025 Active hydroCHLOROthiaz ricarda (HYDRODiuril) 25 MG tabletIndication s:Hypertension, unspecified type TAKE 1 TABLET BY MOUTH DAILY IN THE MORNING 90 tablet 1 025 Active ammonium lactate (Amlactin) 12 % creamIndications :Venous stasis dermatitis of both lower extremities Apply topically if needed for dry skin. 385 g 3 09/18/20 25 12:02 PM EST Active Multiple Vitamin (multivitamin) tablet Take 1 tablet by mouth Once per day. 90 tablet 1 09/18/20 25 12:02 PM EST Active ammonium lactate (Amlactin) 12 % creamIndications :Venous stasis dermatitis of both lower extremities APPLY TOPICALLY TO THE AFFECTED AREA(S) EVERY DAY NEEDED DRY SKIN 385 g 3 025 2024 Discontinued( Reorder (will not trigger notification to Pharmacy)) predniSONE (Deltasone) 20 MG tabletIndication s:Acute exacerbation of COPD with asthma ([facility]) ([facility]) 2 tabs po daily for 5 days 10 tablet 025 2024 Discontinued( Other) Active Problems Problem Noted Date Diagnosed Date Injection site reaction 09/08/2025 Brittle nails 09/08/2025 Dementia ([facility]) 03/04/2025 Trigger finger 08/03/2024 Chronic right-sided low [...] in her new apartment. We had the [facility] department come up and talk with her. They recommended a referral to care management. Referral placed. PHQ: 0 STI: reports no partner at this time. Pap: Last memory was in [place], approximately 5 years ago. Substance use: Denies [...] remember date. Eye exam: Sees [facility] eye care. Dental home: Had [facility] dental appointment that she missed. She [...] nodule 11/12/2017 Severe chronic obstructive pulmonary disease (CM S/HCC) 05/13/2017 Primary hyperparathyroidism 05/04/2017 Acquired hypothyroidism 04/17/2017 Assessment [...] factors. LDL-C is now calculated using the Eb-Kaur calculation, which is a validated novel method providing better accuracy than the Friedewald equation in the estimation of LDL-C. Eb SS et al. [place]. 2013;310(19): 1307-3880 (http://education.playnik.Baojia.com/faq/TXU804) Chol/HDLC Ratio <5.0 (calc) 4.1 3.8 4.0 [...] see if there was an error. The construction or leak gang laborer was able to find the lab orders. I discussed with patient if there was an issue with her blood work someone would contact her to set up and appointment. Osteopenia 04/17/2017 Vitamin D deficiency 04/17/2017 Resolved Problems Problem Noted Date Diagnosed Date Resolved Date Black tongue 08/18/2023 10/09/2023 Anemia 04/17/2017 08/18/2023 Encounters Date Type Department Care Team Description 09/07/2025 1:15 PM EST Office Visit [facility] MEDICINE [address] [place] [phone] Diamond Blake MD Polyp of colon, unspecified part of colon, unspecified type (Primary Dx); Class 3 severe obesity due to excess calories without serious comorbidity with body mass index (BMI) of 40.0 to 44.9 in adult ([facility]); Annual physical exam; Venous stasis dermatitis of both lower extremities; Encounter for immunization; Hypertension, unspecified type; Acquired hypothyroidism; Routine adult health maintenance; Dementia, unspecified dementia severity, unspecified dementia type, unspecified whether behavioral, psychotic, or mood disturbance or anxiety ([facility]) (HCC); Injection site reaction, initial encounter; Brittle nails 09/07/2025 Travel 07/17/2025 Orders Only GENERIC EXTERNAL DATA DEPARTMENT Provider, Generic External Data 07/16/2025 Refill [facility] MEDICINE [address] [place] [phone] Darby Love MD Hypertension, unspecified type 07/14/2025 Refill [facility] MEDICINE [address] [place] [address] [phone] Diamond Blake MD Obesity (BMI 30-39.9) 07/11/2025 Telephone [facility] MEDICINE [address] [place] [phone] Diamond Blake MD GAFC vs COMMUNICATIONS DIRECTOR 07/07/2025 Orders Only [facility] External Provider, [facility] 06/29/2025 Telephone [facility] MEDICINE [address] [place] [phone] Diamond Blake MD Prior Authorization 06/28/2025 Refill [facility] P[facility] [address] [place], [place] [phone] Diamond Blake MD Hyperlipidemia, unspecified hyperlipidemia type 06/26/2025 9:15 AM EDT Office Visit [facility] MEDICINE [address] [place] [address] [phone] Elizabeth Pires MD Acute exacerbation of COPD with asthma ([facility]) 06/26/2025 Travel from Last 3 Months Immunizations Immunization Administration Dates Next Due Influenza injectable quadriv alent IIV4 with preservative 07/21/2018,09/30/2017 Influenza injectable quadriv alent preservative free 08/18/2023,12/02/2021,08/29/2020,2018 Influenza, High Dose Seasona l, Preservative Free 08/01/2025 Influenza, seasonal, injecta ble, preservative free 08/30/2024,08/02/2024 Pfizer Covid-19 Vaccine 12+ 09/07/2025,1 10/30/2023,08/02/2024,2023 Pneumococcal Conjugate PCV 20 08/18/2023 RSV Bivalent [...] pur e alcohol) Alcohol Answer Date Recorded How often do you have a drink containing alcohol ? 0 09/07/2025 How many drinks containing a lcohol do you have on a typical day when you are drinking? 0 09/07/2025 How often do you have six or more drinks on one occasion? 0 09/07/2025 Depression Answer Date Recorded Patient Health Questionnaire-9 Score 7 09/07/2025 Patient Health Questionnaire-9 Score 7 09/07/2025 Last PHQ-9: Questionnaire Data Not on file 1 11/07/2024 Housing Stability Answer Date Recorded What is [...] Answer Date Recorded Patient Health Questionnaire-2 Score 0 09/07/2025 Internet Access Answer Date Recorded Internet Access [...] Sign Reading Time Taken Comments Blood Pressure 130/72 09/07/2025 1:22 PM EST Pulse 75 09/07/2025 1:22 PM EST Temperature 35.7 C (96.3 F) 09/07/2025 1:22 PM EST Respiratory Rate 20 09/07/2025 1:22 PM EST Oxygen Saturation 98% 06/26/2025 9:08 AM EDT Inhaled Oxygen Concentration - - Weight 80 kg (176 lb 6.4 oz) 09/07/2025 1:22 PM EST Height 157.5 cm (5' 2 ) 09/07/2025 1:22 PM EST Body Mass Index 32.26 09/07/2025 1:22 PM EST Plan of Treatment Upcoming Encounters Date Type Department Care Team (Late st Contact Info) Description 10/09/2025 2:00 PM EST Office Visit [facility] OPTOMETRY [address] [place] [address] Lani Gavin, OD [address] [place] [address] 11/23/2025 2:15 PM EST Office Visit [facility] ADULT DENTAL [address] [place] [phone] Yisel Griffith 12/01/2025 2:00 PM EST Office Visit [facility] MEDICINE [address] [place] [phone] Diamond Blake MD [address] [place] [address] Health Maintenance Due Date Last Done Comments CT Colonography 1960 FIT DNA/Cologuard 1960 FIT 1960 FOBT 1960 Sigmoidoscopy 1960 Colonoscopy 07/21/2025 07/21/2023, 07/21/2023 Colorectal Cancer Screening 07/21/2025 Dental X-Ray: Bitewings 07/30/2025 07/29/20 24, 05/01/2023, 12/10/2017 Diabetes: Hemoglobin A1C 09/05/2025 024, 02/19/2024, 08/28/2023, Additional history exists Dental Oral Exam 11/11/2025 05/10/2025, 08/2024, 05/01/2023, Additional history exists Dental Prophylaxis 11/11/2025 05/10/2025, 1 , 05/01/2023 SDOH Screening 03/02/2026 03/02/2025 COVID-19 Vaccine ( season) 2026 09/07/2025, 08/30/2024, 08/02/2024, Additional history exists Dental X-Ray: Full Mouth 05/02/2026 023, 12/10/2017, 11/17/2017 Mammogram 05/04/2026 05/04/2025, 12/17, 01/02/2023, Additional history exists Alcohol/Substance Use Screening 09/07/2026 09/07/2025 Depression Screening 09/07/2026 09/07/2025, 09/07/20 Tobacco Screening 09/07/2026 09/07/2025 DTaP/Tdap/Td Vaccines (2 - Td or Tdap) 04/17/2027 04/17/2017 Cervical Cancer Screening 01/27/2029 HPV/Cotest 01/27/2029 01/28/2024 Pap Smear 01/27/2029 01/28/2024 Lipid Panel 09/05/2029 09/05/2024, 05/0 12/2023, 08/28/2023, Additional history exists Zoster Vaccines Completed 05/16/2022, 02/17/2022 Pneumococcal Vaccine: 50+ Years Completed 08/18/2023 Hepatitis C Screening Completed 08/28/2023, 023 RSV Patients and Patients Aged 60 years or older Completed 12/30/2023 Influenza Vaccine Completed 08/01/2025, , 08/02/2024, Additional history exists HIB Vaccines Aged Out [...] Procedure Name Priority Date/Time Associated Diagnosis Comments CYTOPATH-CELL ENHANCED Routine 11:30 AM EDT US RENAL COMPLETE Routine 07/14/2025 12: 12 PM EDT XR CHEST 2 VIEWS Routine 07/07/2025 10:2 4 AM EDT HYPERSENSITIVITY PNUEMONITIS PROFILE Routine 07/07/2025 10:18 AM EDT IMMUNOGLOBULIN E Routine 07/07/2025 10:1 8 AM EDT SED RATE BY MODIFIED WESTERGREN [...] asthma (CMS/HCC) POCT RAPID COVID ANTIGEN Routine 025 9:30 AM EDT Acute exacerbation of COPD with asthma (CMS/HCC) PROPHYLAXIS - ADULT Routine 05/10/2025 2 :00 PM EDT PERIODIC ORAL EVALUATION - ESTABLISHED PATIENT Routine 05/10/2025 2:00 PM EDT BI MAMMOGRAM SCREENING TOMOSYNTHESIS BILATERAL Routine 05/04/2025 1:40 PM EDT HEMOGLOBIN A1C Routine 09/05/2024 8:25 [...] Recently Relevant to Health Maintenance Results * Cytopath-cell enhanced (07/17/2025 11:30 AM EDT) 07/17/2025 11:3 0 AM EDT 07/18/2025 7:45 AM EDT [facility] - 07/19/2025 10:29 AM EDT ----- ------- Name: Siddharth CastanoDiamond fulton Age/Sex: 64/F : 1960 Unit#: [id number] Attend Dr: Zeina Ribeiro [facility] Re07/17/25 Status: [facility] Disch: ----- ------- SPEC : [id number] RECD: 07/18/25 STATUS: KEYONA STONER NUM: [id number] SELENE: 07/17/25-1130 [facility] DR: Zeina Ribeiro [facility] ENTERED: 07/18/25 SP TYPE: Cytology OT DR: Diamond Diaz MD ORDERED: Cyto-enhanced Diagnosis Urine: Negative for high-grade urothelial carcinoma. Comment: Examination of a monolayer preparation slide shows scattered benign urothelial cells and benign squamous cells, and occasional benign inflammatory cells and red blood cells. Clinical History Microscopic hematuria Material Received Urine Gross Description Received is 26 cc of slightly cloudy yellow fluid from which a ThinPrep slide is prepared. IHC S/NG Disclaimer NOTE: Unless otherwise stated, all tissue is formalin-fixed and paraffin-embedded. Some or all of the immunohistochemical tests reported herein may have been developed and their performance characteristics determined by [facility]. They have not been cleared or approved by the U.S. Food and Drug Administration (FDA). However, the FDA has determined that such clearance or approval is not necessary. This laboratory is certified under the Clinical Laboratory Improvement Amendments of 1988 (CLIA) as qualified to perform high complexity clinical laboratory testing. Copies To: Diamond Diaz MD [address] [id number] Zeina Ribeiro [facility] [address] [place] [address] [place] [address] [email or web address] CONTINUED ON NEXT PAGE ----- ------- Name: Diamond Grider Age/Sex: 64/F : 1960 Unit#: [id number] Attend Dr: Zeina Ribeiro [facility] Re07/17/25 Status: DEP REF Location: .LAB Disch: ----- ------- SPEC : [id number] RECD: 07/18/25 STATUS: KEYONA STONER NUM: [id number] SELENE: 07/17/25-1129 [facility] DR: Zeina Ribeiro [facility] ENTERED: 07/18/25 SP TYPE: Cytology OTHR DR: Diamond Diaz MD ORDERED: Cyto-enhanced ----- ------- Signed (signature on file) [place] 07/19/25 1029 ----- ------- END OF REPORT us Generic External Data Provider LAB CYTOLOGY ADRYAN VARGAS Final Result Performing Organization Address City/State/[facility] Co de Phone Number [facility] [address] [place] [phone] * US Renal Complete (07/14/2025 12:12 PM EDT) Anatomical Region Laterality Modality Kidney Ultrasound 07/14/2025 12:1 2 PM EDT Narrative 07/14/2025 12:15 PM EDT [address] [address] Ultrasound Report Signed Patient: Diamond Grider MR#: [id number] : 1960 Acct:[id number] Age/Sex: 64 / F ADM Date: 07/13/25 Loc: HO.US Attending Dr: Zeina SANTOS Ordering Physician: Zeina Ribeiro Date of Service: 07/13/25 Procedure(s): US renal BI Accession Number(s): [id number] cc: Zeina Ribeiro; Diamond Blake MD Reason for Exam: N20.0 - Calculus of kidney CLINICAL HISTORY: N20.0 - Calculus of kidney US Renal Comparison: 03/15/2024 Findings: Right kidney normal size and echotexture, 10.8 cm length. There is a 0.9 x 0.8 x 1.1 cm right renal cyst. Left kidney normal size and echotexture, 10.8 cm length. There is a 1.3 x 1 x 0.9 cm left renal cyst. There is stable right renal scarring. No hydronephrosis of either kidney. Normal color Doppler there are multiple left renal echogenic foci largest measuring 5 mm. There is a right hepatic lobe cyst which measures 1.8 x 1.2 x 1.6 cm. IMPRESSION: Bilateral renal cysts Multiple left renal echogenic foci likely renal calculi can not exclude and/or interlobar vessels 1.8 x 1.2 x 1.6 cm incidentally noted right hepatic lobe cyst This document has been electronically signed by: Sal Fernandez MD on 07/14/2025 12:12:56 Dictated By: Sal Fernandez MD Signed By: <Electronically signed by Sal Fernandez MD in OV> 07/14/25 1214 DD/ 1212 TD/TT: 07/14/25 1212 Food Quality Technician: Procedure Note Donotuseinterpreter, Image - 07/14/2025 [place] [address] Ultrasound Report Signed Patient: Diamond Grider EMR#: [id number] : 1960Acct:[id number] Age/Sex: 64 / FADM Date: 07/13/25 Loc: HO.US Attending Dr: Zeina SANTOS Ordering Physician: Zeina Ribeiro Date of Service: 07/13/25 Procedure(s): US renal BI Accession Number(s): [id number] cc: Zeina Ribeiro; Diamond Blake MD Reason for Exam: N20.0 - Calculus of kidney CLINICAL HISTORY: N20.0 - Calculus of kidney US Renal Comparison: 03/15/2024 Findings: Right kidney normal size and echotexture, 10.8 cm length. There is a 0.9 x 0.8 x 1.1 cm right renal cyst. Left kidney normal size and echotexture, 10.8 cm length. There is a 1.3 x 1 x 0.9 cm left renal cyst. There is stable right renal scarring. No hydronephrosis of either kidney. Normal color Doppler there are multiple left renal echogenic foci largest measuring 5 mm. There is a right hepatic lobe cyst which measures 1.8 x 1.2 x 1.6 cm. IMPRESSION: Bilateral renal cysts Multiple left renal echogenic foci likely renal calculi can not exclude and/or interlobar vessels 1.8 x 1.2 x 1.6 cm incidentally noted right hepatic lobe cyst This document has been electronically signed by: Sal Fernandez MD on 07/14/2025 12:12:56 Dictated By: Sal Fernandez MD Signed By: <Electronically signed by Sal Fernandez MD in OV> 07/14/25 1214 DD/ 1212 TD/TT: 07/14/25 1212 Food Quality Technician: us [facility] External Provider IMG US PROCEDURES Final Result * XR Chest 2 Views (07/07/2025 10:24 AM EDT) Anatomical Region Laterality Modality Chest Radiographic Sonja ging 07/07/2025 10:2 4 AM EDT Narrative 07/07/2025 10:37 AM EDT [place] [address] XRay Report Signed Patient: Diamond Grider MR#: [id number] : 1960 Acct:[id number] Age/Sex: 64 / F ADM Date: 07/07/25 Loc: JARAD Attending Dr: Keith Mclean MD Ordering Physician: Keith Mclean MD Date of Service: 07/07/25 Procedure(s): XR chest 2V Accession Number(s): [id number] cc: Diamond Diaz MD; Keith Mclean MD [...] 07/07/25 1034 DD/ 1024 TD/TT: 07/07/25 1030 Food Quality Technician: Procedure Note Donotuseinterpreter, Image - 07/07/[address] [address] XRay Report Signed Patient: Diamond Girder EMR#: [id number] : 1960Acct:[id number] Age/Sex: 64 / FADM Date: 07/07/25 Loc: HO.XRAY Attending Dr: Keith Mclean MD Ordering Physician: Keith Mclean MD Date of Service: 07/07/25 Procedure(s): XR chest 2V Accession Number(s): [id number] cc: Diamond Diaz MD; Keith Mclean MD [...] 07/07/25 1034 DD/ 1024 TD/TT: 07/07/25 1030 Food Quality Technician: us [facility] External Provider IMG XR PROCEDURES Edited Result - Final * (ABNORMAL) CBC auto differential (07/07/2025 10:18 AM EDT) White Blood Count 5.6 4.8 - 10.8 X10*3/uL [facility] Red Blood Count 4.26 4.20 - 5.50 X10*6/uL [facility] Hemoglobin 12.5 12.0 - 16.0 g/dl [facility] Hematocrit 36.7(L) 37.0 - 47.0 % [facility] Mean Corpuscular Volume 86.2 80.0 - 98.0 fL [facility] Mean Corpuscular Hemoglobin 29.3 27.0 - 33.0 pg [facility] Mean Corpuscular HGB Conc 34.1 31.0 - 35.0 g/dl [facility] Red Cell Distribution Width 13.1 11.0 - 16.0 % [facility] Platelet Count 423(H) 160 - 400 X10*3/uL [facility] Mean Platelet Volume 9.9 9.4 - 12.3 fL [facility] Neutrophils Percent Auto 57.7 45 - 73 % [facility] Imm Gran Pct Auto 0.2 0.0 - 0.4 % [facility] Lymphocytes Percent Auto 35.2 20 - 40 % [facility] Monocytes Percent Auto 4.7 2 - 11 % [facility] Eosinophils Percent Auto 0.9 0 - 4 % [facility] Basophils Percent Auto 1.3 0 - 2 % [facility] NRBC Pct Auto 0.0 0.0 - 0.2 /100WBC [facility] Neutrophils Absolute Auto 3.2 2.0 - 8.3 x10*3/uL [facility] Imm Gran Abs Auto 0.01 0.00 - 0.03 X10*3/uL [facility] Lymphocytes Absolute Auto 2.0 1.2 - 4.9 X10*3/uL [facility] Monocytes Absolute Auto 0.3 0.1 - 1.2 X10*3/uL [facility] Eosinophils Absolute Auto 0.1 0.0 - 0.4 X10*3/uL [facility] Basophils Absolute Auto 0.1 0.0 - 0.2 X10*3/uL [facility] NRBC Abs Auto 0.000 0.0 - 0.012 X10*3/uL [facility] 07/07/2025 10:1 8 AM EDT 07/07/2025 10:18 AM EDT us Generic External Data Provider LAB BLOOD ORDERAB LES Final Result Performing Organization Address [facility] Co de Phone Number [facility] [address] [place] [phone] * Hypersensitivity Pneumonitis Screen (07/07/2025 10:18 AM EDT) Aspergillus fumigatus Ab NEGATIVE NEGATIVE [facility] Micropolyspora Faeni NEGATIVE NEGATIVE [facility] Guadalupe Serum Abs NEGATIVE NEGATIVE [facility] Thermoactinomyces candidus NEGATIVE NEGATIVE [facility] Thermoactinomyces vulgaris Ab NEGATIVE NEGATIVE [facility] Saccharomonospora viridis Ab NEGATIVE NEGATIVE [facility] Comment:This test was develo ped and its analytical performancecharacteristics have been determined by [employer].It has not been cleared or approved by the FDA. This assayhas been validated pursuant to the CLIA regulations and isused for clinical purposes.THIS TEST WAS PERFORMED AT:CUPR/BHANDARI [id number] [facility] [place] [id number] BAUM MD,PHD,JOHN 07/07/2025 10:1 8 AM EDT 07/07/2025 10:18 AM EDT Generic External Data Provider LAB BLOOD ORDERAB LES Final Result Performing Organization Address [facility] Co de Phone Number [facility] [address] [place] [phone] * Sed Rate by Modified Rolando (07/07/2025 10:18 AM EDT) Pathologist [facility] Erythrocyte Sedimentation Rate 17 0 - 20 MM/HR [facility] Comment:Patients with polycy themia and many hemoglobin abnormalitiesmay have depressed sed rates whereas patients with anemiamay have elevated sed rates. 07/07/2025 10:1 8 AM EDT 07/07/2025 10:18 AM EDT Generic External Data Provider LAB BLOOD ORDERAB LES Final Result Performing Organization Address [facility] Co de Phone Number [facility] [address] [place] [phone] * (ABNORMAL) Immunoglobulin E (07/07/2025 10:18 AM EDT) Pathologist [facility] Immunoglobulin E 235(A) <MN=176 kU/L [facility] Comment:THIS TEST WAS PERFOR MED AT:[id number] [place] [id number] CHANG MD 07/07/2025 10:1 8 AM EDT 07/07/2025 10:18 AM EDT Generic External Data Provider LAB BLOOD ORDERAB LES Final Result Performing Organization Address [facility] de Phone Number [facility] [address] [place] [phone] * (ABNORMAL) Basic Metabolic Panel (07/07/2025 10:18 AM EDT) Pathologist [facility] Sodium 140 135 - 145 mmol/L [facility] Potassium 3.4 3.3 - 5.1 mmol/L [facility] Chloride 104 96 - 108 mmol/L [facility] Carbon Dioxide 31(H) 22 - 29 mmol/L [facility] Anion Gap 8(L) 12 - 20 [facility] Urea Nitrogen (BUN) 12 9 - 16 mg/dL [facility] Creatinine, Serum 0.73 0.5 - 1.4 mg/dL [facility] Estimated Glomerular Filt Rate >60 [facility] Comment:Chronic Kidney Disea se: Estimated GFR < 60 mL/min/1.02p8Bslmkq Kidney Disease: Estimated GFR < 15 mL/min/1.73m2 Glucose 82 60 - 115 mg/dL [facility] Calcium 9.6 8.4 - 10.2 mg/dL [facility] 07/07/2025 10:1 8 AM EDT 07/07/2025 10:18 AM EDT Generic External Data Provider LAB BLOOD ORDERAB LES Final Result Performing Organization Address City/State/[facility] Co de Phone Number [facility] [address] [place] [phone] * POCT Influenza B manually resulted (06/26/2025 9:31 AM EDT) [facility] Rapid Influenza B Ag Negative Negative, Indeterminate QC Media Lot # [id number] Lot# Expiration Date Swab 06/26/2025 9:31 AM EDT Elizabeth Pires MD POINT OF CARE TEST ENTER/E DIT ORDERABLES Final Result * POCT Influenza A manually resulted (06/26/2025 9:31 AM EDT) [facility] Rapid Influenza A Ag Negative Negative, Indeterminate QC Media Lot # [id number] Lot# Expiration Date Swab Nasopharyngeal structure / Unknown 06/26/2025 9:31 AM EDT Elizabeth Pires MD POINT OF CARE TEST ENTER/E DIT ORDERABLES Final Result * POCT Rapid COVID Ag (06/26/2025 9:30 AM EDT) [facility] Rapid COVID Ag Negative QC Media Lot # [id number] Lot# Expiration Date Swab 06/26/2025 9:30 AM EDT Elizabeth Pires MD POINT OF CARE TEST ENTER/E DIT ORDERABLES Final Result * BI Mammogram Screening Tomosynthesis Bilateral (05/04/2025 1:40 PM EDT) Anatomical Region Laterality Modality Breast Bilateral Mammography 05/04/2025 1:40 PM EDT Narrative 05/15/2025 4:33 PM EDT Hugh [facility] [address] [place], [place] [address] Mammography Report Signed Patient: Diamond Grider MR#: [id number] : 1960 Acct:[id number] Age/Sex: 64 / F ADM Date: 05/04/25 Loc: HO.MAMMO Attending Dr: Diamond Barry MD Ordering Physician: Diamond Blake MD Re sults: 1Negative Date of Service: 05/04/25 Follow Up: 1 Year From [facility] Mammogram Procedure(s): MM tomosynthesis screening BI Accession Number(s): [id number] cc: Diamond Blake MD EXAMINATION: MM SCREENING [...] Doherty DO Signed By: <Electronically signed by Sepiedh Doherty DO in OV> 05/15/25 1630 DD/ 1340 TD/TT: 05/04/25 1405 Food Quality Technician: Procedure Note Donotuseinterpreter, Image - [facility] [address] [place] [address] Mammography Report Signed Patient: Diamond Grider EMR#: [id number] : 1960Acct:[id number] Age/Sex: 64 / FADM Date: 05/04/25 Loc: HO.MAMMO Attending Dr: Diamond Barry MD Ordering Physician: Diamond Blake sults: 1Negative Date of Service: 05/04/25Follow Up: 1 Year From Orig inal Mammogram Procedure(s): MM tomosynthesis screening BI Accession Number(s): [id number] cc: Diamond Blake MD EXAMINATION: MM SCREENING [...] 05/15/25 1630 DD/ 1340 TD/TT: 05/04/25 1405 Food Quality Technician: us Diamond Barry MD IMG BI PROCEDURES Final Result * Hemoglobin A1c (09/05/2024 8:25 AM EST) Hemoglobin A1c 5.7 <6.0 % [facility] Comment:Hemoglobin A1C Refer ence Range Adults: 4.8 - 6.0 % Non diabetic: < 6.0 % Goal: < 7.0 %Additional Action Suggested: > 8.0 %Note: Hemoglobin A1c results are invalid for patients with abnormal amounts of HbF. Blood transfusions may impact the HbA1c concentration in the patient sample. Estimated Average Glucose 117 mg/dL [facility] Comment:eAG = Estimated ave rage glucose which is %A1C expressed asaverage glucose, using the formula of the R7E-UyjiahdPcthzoc Glucose study (ADAG), Diabetes Care, Vol.31,#8,May. 2007 Blood Venous blood specimen / Unknown 09/05/2024 8:25 AM EST 09/05/2024 11:36 AM EST us Diamond Barry MD LAB BLOOD ORDERAB LES Final Result [facility] [address] [place] [phone] * Lipid Panel, Standard (09/05/2024 8:25 AM EST) Triglycerides 134 <150 mg/dL [facility] Comment:Desirable Triglyceri de: less than 150 mg/dLBorderline High Triglyceride 150-199 mg/dLHigh Triglyceride: 200-499 mg/dLVery High Triglyceride: greater than or equal to 5OO mg/dL Cholesterol 152 <200 mg/dL [facility] Comment:Desirable Cholestero l: less than 200 mg/dLBorderline High Cholesterol: 200-239 mg/dLHigh Cholesterol: greater than 239 mg/dL LDL Cholesterol Calculated 70 <100 mg/dL [facility] Comment:Desirable LDL: less than 100 mg/dLNear Optimal/Above Optimal LDL: 110- 129 mg/dLBorderline High LDL: 130-159 mg/dLHigh LDL: 160-189 mg/dLVery High LDL: greater than or equal to 190 mg/dL HDL Cholesterol 56 >40 mg/dL [facility] Comment:Desirable HDL: great er than 40 mg/dL Note: This HDL assay may give artificially low results in patients with liver disease. Blood Venous blood specimen / Unknown 09/05/2024 8:25 AM EST 09/05/2024 11:36 AM EST us Diamond Barry MD LAB BLOOD ORDERAB LES Final Result [facility] [address] [place] [phone] * HPV mRNA E6/E7 w/Reflex to HPV Genotypes 16, 18/45 (01/28/2024 11:09 AM EDT) HPV nRNA E6/E7 Not Detected Not Detected [facility] Comment:Methodology: Transcr iption-Mediated AmplificationThis assay detects E6/E7 viral messenger RNA (mRNA) from 14high-risk HPV types (16,18,31,33,35,39,45,51,52,56,58,59,66,68).Cervical sources are required for HPV testing.If a vaginal source from a patient who has had atotal hysterectomy with removal of cervix wassubmitted, please contact the testing laboratoryfor alternative testing options.For additional information, please refer tohttp://education.Krush/faq/EVL623e7(This link if provided for information/educational purposes only.)THIS TEST WAS PERFORMED AT:[address] [place] [phone] CHANG MD HPV mRNA E6/E7 TNP [facility] HPV 16 RNA [facility] HPV 18/45 RNA [facility] 01/28/2024 11:0 9 AM EDT 02/02/2024 12:00 PM EDT Alyce Gallo CNM LAB CYTOLOGY ORDERABLES F inal Result [facility] [address] [place] [phone] * Pap Smear (01/28/2024 11:09 AM EDT) Swab Cervix uteri structure / Unknown 01/28/2024 11:09 AM EDT 02/02/2024 12:00 PM EDT Narrative [facility] - 02/17/2024 6:59 AM EDT ----- ------- Name: Siddharth Diamond [place] Age/Sex: 63/F : 1960 Unit#: [id number] Attend Dr: ALYCE GALLO CNM Re01/28/24 Status: DEP [facility]ch[facility] ----- ------- SPEC : [id number] RECD: 02/02/24-1199 STATUS: KEYONA STONER NUM: [id number] SELENE: 01/28/24-[address]: ALYCE GALLO CNM ENTERED: 02/02/24-1244 SP TYPE: Pap Smr OTHR DR: ORDERED: Pap Smear Interpretation Satisfactory for evaluation. Atrophic. Negative for intraepithelial lesion or malignancy. HPV mRNA E6/E7: NOT DETECTED This assay detects E6/E7 viral messenger RNA (mRNA) from 14 high-risk HPV types (16, 18, 31, 33, 35, 39, 45, 51, 52, 56, 58, 59, 66, 68) HPV testing performed by [facility], [place], [place]. See reference laboratory portion of the EMR for entire report. Clinical Information LMP: Postmenopausal Previous PAP test: Unknown date/findings Material Received ThinPrep-Vaginal/Cervical ----- ------- Signed (signature on file) RIANNA Han (ASCP) 02/17/24 0659 ----- ------- END OF REPORT us Alyce ROTH LAB CYTOLOGY ORDERABLES F inal Result [facility] [address] [place] [address] [phone] * Hepatitis C Antibody with Reflex to HCV, RNA, Quantitative, Real-Time PCR (08/28/2023 9:03 AM EST) Hepatitis C Antibody Nonreactive Nonreactive [facility] Comment:Antibodies to HCV no t detected; does not exclude early acuteHCV infection. Blood Venous blood specimen / Unknown 08/28/2023 9:03 AM EST 08/28/2023 11:14 AM EST us Diamond Barry MD LAB BLOOD ORDERAB LES Final Result [facility] [address] [place] [phone] * (ABNORMAL) Colonoscopy (07/21/2023) Colonoscopy Abnormal( [...] Most Recently Relevant to Health Maintenance Insurance [facility] [employer] (O D-SNP) [place]ITT [id number] [place] * Guarantor: Diamond Grider Account Type Relation to Patient Date of Phone Billing Address Personal/Family Self [address] [phone] Care Teams Rn Lactation Consultant Relationship Specialty Start Date End Date Diamond Blake MD [address] [place] [address] PCP - General Internal Medicine 06/30/23 Zechariah Bradley Under Water AssistantFamily Service Worker 03/23/24
--- OUTSIDE RECORDS SUMMARY | 2025-09-18 14:42 | XMS_ITS | Encounter Summary ---
Author Organization [employer] Address [address] [place] [address] [address] [place] [address] Care Team Providers Care Computer Forensics Analyst Name Role Phone Diamond Blake MD Primary Care Pro vider Reason for Visit * Reason Onset Date Comments Med Refill 07/07/2023 Encounter Details Date Type Department Care Team (Late st Contact Info) Description 07/07/2023 Refill [facility] CHC MED & PEDS [address] [place] [address] Nava Moss MD [address] [place] [address] Severe chronic obstructive pulmonary disease (CMS/HCC) Social [...] Description 10/09/2025 2:00 PM EST Office Visit [facility] OPTOMETRY [address] [place] [address] Lani Gavin, OD [address] [place], [place] [phone] 11/23/2025 2:15 PM EST Office Visit [facility] ADULT DENTAL [address] [place], [place] [phone] Yisel Griffith 12/01/2025 2:00 PM EST Office Visit [facility] MEDICINE [address] [place] [address] Diamond Blake MD [address] [place], [place] [phone] documented as of this encounter Visit Diagnoses Diagnosis Severe chronic obstructive pulmonary disease (CMS/HCC) (HCC) Chronic airway obstruction, not elsewhere classified documented in this encounter Additional Health Concerns Assessment Noted Time PHQ-9 Depression Total Score: 15 12/12/ 023 2:22 PM EST documented as of this encounter Care Teams Computer Forensics Analyst Relationship Specialty Start Date End Date Diamond Blake MD [address] [place] [phone] PCP - General Internal Medicine 06/30/23 Zechariah Bradley Piano StringerManager Crisis 03/23/24 documented as of this encounter
--- OUTSIDE RECORDS SUMMARY | 2025-09-18 14:42 | XMS_ITS | Encounter Summary ---
Author Organization [employer] Address [address] [place] [address] [address] [place] [address] Care Team Providers Care Meringuer Name Role Phone Diamond Blake MD Primary Care Pro vider Reason for Visit * Reason Onset Date Comments Med Refill 07/07/2023 Encounter Details Date Type Department Care Team (Late Contact Info) Description 07/07/2023 Refill [facility] MEDICINE [address] [place] [address] Kailash Trevizo AGNP Severe chronic obstructive pulmonary [...] Description 10/09/2025 2:00 PM EST Office Visit [facility] OPTOMETRY [address] [place] [address] Romaine, Lani, OD [address] [place] [address] 11/23/2025 2:15 PM EST Office Visit [facility] ADULT DENTAL [address] [place], [place] [phone] GriffithYisel carrizales 12/01/2025 2:00 PM EST Office Visit [facility] MEDICINE [address] [place], [place] [phone] Diamond Blake MD [address] [place] [phone] documented as of this encounter Visit Diagnoses Diagnosis Severe chronic obstructive pulmonary disease (CMS/HCC) (HCC) Chronic airway obstruction, not elsewhere classified Hypertension, unspecified type Hyperlipidemia, unspecified hyperlipidemia type documented in this encounter Additional Health Concerns Assessment Noted Time PHQ-9 Depression Total Score: 15 12/12/ 023 2:22 PM EST documented as of this encounter Care Teams Meringuer Relationship Specialty Start Date End Date Diamond Blake MD [address] [place] [address] [phone] PCP - General Internal Medicine 06/30/23 Zechariah Bradley Java Developer With Security ClearanceIct Educator 03/23/24 documented as of this encounter
== END 2025-09-18 15:13 | disposition home or self-care (01) ==
LOC: HO.ENCR 11:13
PROVIDERS: Visit Provider Dietitian, Registered
DX: E66.9 Obesity, unspecified (principal)

== ENCOUNTER → 2025-09-18 11:13 | Outpatient (BNVA) | payer OTHER, SELFPAY | PROVIDERS: Visit Provider Dietitian, Registered | DX: E66.9 Obesity, unspecified (principal); Z68.32 Body mass index [BMI] 32.0-32.9, adult; Z71.3 Dietary counseling and surveillance | CPT/HCPCS: 97802 ==